=== PATIENT | female | born 1990 | race Caucasian/White ===

== ENCOUNTER 2019-03-07 12:15 | Emergency (ER) | payer MEDICAID, SELFPAY ==
[2019-03-07 12:16] VITALS: BP 119/83; PULSE 61; RESP 17; TEMP 36.6; O2SAT 99; BMI 32.8
--- NOTE | 2019-03-07 12:45 | RAD_ITS ---
STUDY: X-RAY - ABDOMEN/PELVIS REASON FOR EXAM: Female, 28 years old. Low back pain. IUD placement. TECHNIQUE: Single AP view of the abdomen / pelvis. COMPARISON: None. FINDINGS: There is a moderate amount of colonic fecal material. The visualized liver, spleen and kidneys are grossly normal in size and morphology. 9 as directed is seen within the mid pelvis most likely within the uterus. Normal visualized osseous structures. RAD/Abdomen Single View IMPRESSION: Moderate amount of fecal material is seen in the colon. IUD is seen within the uterus. Electronically Signed: Tomasz Mishar, at 13:46 EDT , Service support ,
[2019-03-07] MEDS: Ketorolac 30 MG/ML Syringe 60 MG IM (13:06)
[2019-03-07 14:22] LABS: Bacteria 0 SEEN /hpf (None Seen); Mucous, Urine 0 SEEN /hpf (<or=2+); Red Blood Cells-Urine 0 SEEN /hpf (0-5); Squamous Epithelial Cells - UA 0 SEEN /hpf (5-10)
[2019-03-07 14:25] LABS: Color, Urine Yellow (Yellow); Glucose, Dipstick Normal (Normal); Ketone-Dipstick Negative (Negative); Leukocyte Esterase-Dipstick 25 /ul (Negative); Nitrite-Dipstick Negative (Negative); Occult Blood-Urine Negative /ul (Negative); Protein-Dipstick Negative (Negative); Specific Gravity, Urine 1.015 (1.002-1.030); Urine Bilirubin Dipstick Negative (Negative); Urine Clarity Clear (Clear); Urine Urobilinogen Normal (Normal)
[2019-03-07 14:28] LABS: Internal QC Validated? YES +Cl - CLEAR BKGD; Pregnancy, Urine Negative Negative
[2019-03-07 14:39] LABS: White Blood Cells 0-5 SEEN /hpf (0-5)
--- NOTE | 2019-03-07 15:09 | ED.VISSUMM ---
- ER Visit Summary Date of Service: 03/07/19 Chief Complaint: Back pain History of Present Illness: The patient is a 28 F who with no primary care physician. She reports that she has low back pain began today. It is a sharp pain is 9 out of 10 at worst and 7-10 currently. Is worsened by movement. Is relieved by remaining still. She has not taken any medication for this. There is no relation to her legs. No numbness or weakness in her legs. No problems with her bowels or bladder. No groin numbness. Patient denies any fever, chills, or recent trauma. There are no red flags. Patient reports that she has cramping lower abdominal pain that it is been present for 3 days. Is 3 out of 10 in severity. She has been nauseated. She denies any dysuria or frequency. She has an IUD in place and reports that she was unable to feel the strings today. She last felt the strings last month. Physical Examination: Vitals: Stable. Afebrile. General: A&O x 3. NAD. Cardiovascular exam: Regular rate and rhythm, no murmur, rub or gallop. Respiratory exam: Clear to auscultation bilaterally. No wheezes or stridor. Abdominal exam: Soft, nontender, nondistended, normal bowel sounds. No peritoneal signs. Back: Diffuse moderate tenderness to palpation over the lumbar spine and the paraspinous musculature in the lumbar region. No point tenderness. Negative straight leg bilaterally. 5/5 DF, PF, EHL bilaterally. Normal sensation to light touch throughout. Extremity: No clubbing, cyanosis, or edema. Test Results: UA is negative. test is negative. Clinical Impression(s) from Imaging Studies KUB X-Ray 03/07/19 12:45 IMPRESSION: Moderate amount of fecal material is seen in the colon. IUD is seen within the uterus. Electronically Signed: Tomasz Danica, at 13:46 EDT , Service support , Emergency Department Course and Treatment: She was treated with Toradol IM and is resting comfortably. Treatment Plan: Patient was instructed to follow-up with Dr. Guzman in 1 week if her back pain is not improving. She will be placed on naproxen for this. I did discuss through the fact that the IUD strings are probably entered her cervix and that she should follow-up with Dr. Larry within 1 to 2 weeks for further evaluation of this. Return to the emergency department for any worsening symptoms. Disposition: To home in improved and stable condition. Impression: 1. Back pain, acute. 2. Abdominal pain, uncertain cause. This note was generated with [employer] software. It may contain incorrect words, spelling, and punctuation that were not noted in review of the chart prior to signing ED Disposition - Plan for ED Patient: Disposition: Home or Assisted Living Instructions: BACK PAIN (Acute or Chronic) Prescriptions: Naproxen [Naprosyn] 500 mg PO BID #14 tab Prescription Printed Referrals: Kitty Pierce MD [STAFF PHYSICIAN] - 1 Week if not improving Bisi Larry MD [STAFF PHYSICIAN] - 1-2 Weeks
[2019-03-07 15:14] VITALS: PULSE 66; RESP 17; O2SAT 97
== END 2019-03-07 15:15 | disposition home or self-care (01) ==
LOC: ED 13:34
PROVIDERS: Emergency Provider Emergency Medicine
DX: M54.5 Low back pain (principal); R10.30 Lower abdominal pain, unspecified; R11.0 Nausea; J45.909 Unspecified asthma, uncomplicated; Z97.5 Presence of (intrauterine) contraceptive device
CPT/HCPCS: 74018; 81001; 81025; 96372; 99282; J7030

== ENCOUNTER → 2020-11-02 | Outpatient (CLI) | payer MEDICAID, SELFPAY ==
[2020-11-05 14:05] LABS: HPV Reflexed? NOT INDICATED
== END | disposition home or self-care (01) ==
LOC: LABSPEC 17:01
PROVIDERS: Visit Provider Obstetrics & Gynecology
DX: Z12.4 Encounter for screening for malignant neoplasm of cervix (principal)
CPT/HCPCS: 88175; G0145

== ENCOUNTER 2020-12-24 09:01 | Day surgery (SDC) | payer MEDICAID, SELFPAY ==
[2020-12-22 10:59] LABS: Hematocrit 41.8 % (37-47); Hemoglobin 14.1 g/dL (12.0-15.0); Mean Corp Hgb Conc 33.7 g/dL (32-36); Mean Corpuscular Hgb 30.6 pg (27.0-32.0); Mean Corpuscular Volume 90.7 fL (81-99); Mean Platelet Vol. 10.6 fl (6.2-12.0); Platelet Count 184 K/mm3 (150-450); RBC Distribution Width CV 12.9 % (11.6-14.6); RBC Distribution Width SD 41.9 fl (35.1-43.9); Red Blood Count 4.61 M/mm3 (4.2-5.4); White Blood Count 6.5 K/mm3 (4.4-11.0)
[2020-12-24] VITALS (10 sets, daily range): BP systolic 99–124; BP diastolic 51–84; PULSE 48–78; RESP 14–18; TEMP 36.4–37.3; O2SAT 95–100; BMI 34.0
--- NOTE | 2020-12-24 | FALS_PTH ---
PATIENT: ANNE THOMPSON LOC[place] [facility] [place][id number] AGE/SX: 30/F ROOM: RE12/24/[address]: Dr. Tavon Flores MD : 1990 BED: DIS: 12/24/2020 SPEC #: [id number] RECD: 12/24/20 14:00 STATUS: ANTHONY RELoco #: [id number] MIRACLE: 12/24/20 00:[address]: Tavon Flores DEPT: SURGICAL PATHOLOGY RECD BY: Dhaval Bah ENTERED: 12/24/20 14:00 SP TYPE: FALL TUBES OTHR DR: No Primary Care Phys Tissues: Fallopian tube Procedures: Surgery Specimen Level IV HEADER OPERATION: Laparoscopic salpingectomy PRE-OP DIAGNOSIS: Sterilization TISSUE SUBMITTED: Bilateral fallopian tubes MICROSCOPIC DIAGNOSIS Right and left fallopian tubes, bilateral salpingectomies: Benign paratubal cysts and foci of endometriosis. See Comment. AM:skye 12/25/2020 COMMENT The pathologic changes are noted in both fallopian tubes. Clinical correlation is suggested. Case has been reviewed in consultation with Dr. Ignacio who concurs with the above diagnosis. IDC:DARRIN MICROSCOPIC DESCRIPTION Slides are reviewed. GROSS DESCRIPTION Received in fixative is one container labeled with the patient's name and designated bilateral fallopian tubes. The specimen consists of bilateral fallopian tubes including fimbrial ends measuring 5 cm in length and 0.5 cm in diameter and 6.5 cm in length and 0.6 cm in diameter. The fallopian tubes are not identified as right or left. A paratubal cyst is noted on one of the fallopian tubes measuring 0.5 cm in greatest dimension. Sections reveal unremarkable cut surfaces. Truer Pinion And Wheel sections are submitted in two cassettes with each cassette containing one fallopian tube. Cassette 1 also contains the paratubal cyst. / DARRIN:skye 12/24/20 TC:3 CPT: 42976 x2
[2020-12-24 09:41] LABS: Internal QC Validated? YES +Cl - CLEAR BKGD; Pregnancy, Urine Negative Negative
[2020-12-24] MEDS: Lactated Ringers 1,000 ML 120 ML IV ×2 (10:00→14:43)
--- NOTE | 2020-12-24 10:36 | PCM.HP.BLA ---
History and Physical Date of Admission: 12/24/20 Surgical History and Physical Name: GAYLE THOMPSON Age: 30 Date of : 1990 Gayle Thompson, a 30 year old female 2 0 0 0 2, presents for Laparoscopic bilateral tubal ligation on December 24, 2020 at 7:30. -- Gayle desires permanent sterilization. Gayle is here for laparoscopic tubal ligation. Reviewed and signed surgery consents. No questions expressed at this time. MEDICATIONS HISTORY: Current medications prescribed by our practice are: 1. Sprintec (28) 0.25 mg-35 mcg tablet, 1 PO QD ALLERGIES: No Known Drug Allergies Infections - Bronchitis and Chicken pox Illnesses - asthma as child/ occ post exertional asthma Accidents - no injuries of consequence Hospitalizations - see surgery migraines. Last one 6 mo ago.; Review of Systems: GENERAL - Denies fever, or chills SKIN - Denies skin changes EYES - Denies visual changes EARS - Denies difficulty hearing NOSE - Denies nasal congestion or bleeding MOUTH - Denies sore throat or difficulty swallowing NECK - Denies pain or swelling RESPIRATORY - Denies shortness of breath or wheezing CARDIOVASCULAR - Denies palpitations or chest pain GASTROINTESTINAL - Denies nausea, vomiting, diarrhea, constipation GENITOURINARY - Denies dysuria, frequency of urination, incontinence of urine MUSCULOSKELETAL - Denies joint or muscle pain NEUROLOGICAL - Denies localized numbness or weakness PSYCHIATRIC - Denies depression or anxiety ENDOCRINE - Denies heat or cold intolerance, weight loss or gain HEMATO-IMMUNOLOGIC - Denies excessive bleeding with cuts SOCIAL HISTORY: Alcohol Use - denies drinking Smoking - used to smoke but quit and 2010 Diet - no special diet Lifestyle - moderate stress lifestyle and single Exercise - regular and active work Seat Belt Use - always Employer - [employer] 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 Hours Worked - 40 hours per week Children Name(s) - La Benavidez Control - condoms FAMILY HISTORY: MENSTRUAL HISTORY: LMP Known?- DefiniteAmount/Duration - weeks, Regularity - Irregular, LMP - 11/13/17, Age Onset Menarche - 16 PAST PREGNANCIES: Total Pregnancies - 2; Full Term Pregnancies - 2; Premature - 0; Abortions, Induced - 0; Abortions, Spontaneous - 0; Ectopics - 0; Multiple Births - 0; Living Children - 2 SURGICAL HISTORY: 1. 11/15/2017 right foot reconstruction (plantar fascia) ; - 2. Pins in toes, 01/29, 09/03 ; - PHYSICAL EXAM BP- 110/78 Sitting, Right arm, large cuff Weight- 226.31917 lbs Height- 67.00 inch BMI:35.60 CONSTITUTIONAL - NAD, well nourished, and well developed SKIN - No rash, lesions, or ulcers HEENT - Normocephalic, PERRLA, EOMI NECK - No nodes, no nuchal rigidity and thyroid normal size and texture LYMPH NODES - Palpation of lymph nodes in neck and groins within normal limits LUNGS - CTA x2 without wheezes, crackles or rales CARDIAC - Regular rate and rhythm without rubs, murmurs, or gallops ABDOMEN - Without hepatosplenomegaly, distention, masses, rebound, or guarding; normal bowel sounds; no hernias EXTREMITIES - No edema or calf tenderness NEUROLOGICAL - Cranial nerves II-XII grossly intact PSYCHIATRIC - A and O to time, place, person, mood and affect External Genital Vagina - non-tender without lesions Urethra/Urethral Meatus - non-tender Bladder - non-tender Vagina - vaginal johnston are pink and moist without loss of rugae and no evidence of atrophy Cervix - without cervical motion tenderness and has normal size and features without evident lesions Uterus - 5-6 cm in size, mobile and nontender Adnexa - clear without masses or tenderness ASSESSMENT/PLAN: 2. Encounter For Preprocedural Examinations G2, IUD fell out, pt desires permanent sterilization R/b/a including regret discussed. Pt stated understanding, all questions answered and consent was signed. Pt now on OCP, to continue Educated on r/b/a of surgery, states understanding all questions answerd and consent was signed. Pt taking only OCP. Does not need COVID testing with vaccine.
--- NOTE | 2020-12-24 11:17 | DCINST_ITS ---
Discharge Instructions Diet Discharge Diet: No restrictions Activity Discharge Activity: Return to Normal Activity, No Restrictions, May Drive, May Shower and - (no tub baths for 2 weeks) May resume sexual activity in: 4-6 weeks Weight Bearing Status: Weight bearing as tolerated Dressing / Incision Call your doctor if your incision/area has: Continuous Slow Oozing and Foul Smel ling Discharge Call your doctor if you observe: Fever of 101 or Higher, Shortness of breath and Chest pain Follow Up Care Please Follow Up With: Tavon Flores MD When: 2 weeks postoperative Test Results: Test results from this visit will be discussed in further detail at your follow-up appointment, if applicable. Discharge Plan Admission Attending Provider: Tavon Flores Primary Care Provider: Care Physician,Brianda Primary Discharge Orders/Prescriptions Prescriptions: No Action albuterol 90 mcg/actuation Aerosol INHALATION PRN (Reason: Wheezing) RF: 0 Disposition Discharge Orders: Discharge Patient (Routine); Ordered 12/24/20 Ordered By: Dr. Tavon Flores
--- NOTE | 2020-12-24 11:18 | OP.PCM_ITS ---
Report of Operation Date of Procedure: 12/24/20 Pre-Operative Diagnosis: Desires permanent sterilization Post-Operative Diagnosis: Desires permanent sterilization Surgery/Procedure Performed:: Laparoscopic bilateral salpingectomy Description of Surgical Findings:: Surgeon: Tavon Flores MD Anesthesia: General EBL: 5 cc Urine output: 100 cc IV fluids: 700 cc Complications: None Specimen: Bilateral fallopian tubes Findings: Normal uterus, tubes, and ovaries. Consent: Patient desires permanent sterilization in need of laparoscopic bilateral salpingectomy. Patient understands the risk of the procedure include but are not limited to visceral or vascular injury, prolonged hospitalization, blood loss and need for transfusion, reoperation. Patient states understanding wish to proceed. All questions were answered consent was signed. Procedure: Patient was brought back to the OR where general anesthesia found to be adequate. Patient was prepared and draped in a dorsolithotomy position with yellowfin stirrups. Weighted speculum placed in the posterior aspect of the vagina and cervical dilators were used to dilate cervix. Uterine manipulator was placed. Varies needle was inserted at the umbilicus. Water safety test was passed. Abdomen was insufflated. 5 mm infraumbilical trocar was inserted. Laparoscope was inserted above findings were noted. Right lower quadrant 8 mm trocar was inserted under direct visualization. Left lower quadrant 5 mm trocar was placed under direct visualization. Using an atraumatic grasper and a LigaSure device the right fallopian tube was identified out to the fimbriae and the mesosalpinx was cut and cauterized. Fallopian tube was removed from the abdominal cavity and sent to pathology. The left fallopian tube was identified out to the fimbria and using a LigaSure the mesosalpinx was cut and cauterized. Fallopian tube removed from abdominal cavity and sent to pathology. Good hemostasis was noted. Abdomen was desufflated and trochars removed under direct visualization. Good hemostasis was noted. Uterine manipulator was removed. Skin was closed in a subcuticular fashion. All counts correct x2. Patient tolerated procedure well was brought to recovery in stable condition. boarder machine: Mary Silva
[2020-12-24] MEDS: Acetaminophen 500 MG Tablet 1000 MG PO (12:00)
== END 2020-12-24 16:37 ==
LOC: SDC 09:02 → AC 09:02
PROVIDERS: Anesthesiology; Referring Provider Obstetrics & Gynecology; Visit Provider Obstetrics & Gynecology
PROC: (CPT 58661; principal; 2020-12-24 10:45)
DX: Z30.2 Encounter for sterilization (principal); J45.909 Unspecified asthma, uncomplicated; Z87.891 Personal history of nicotine dependence
CPT/HCPCS: 00840; 58661; 36415; 81025; 85027; 86850; 86900; 86901; 88302; 88305; J7120; J2405

== ENCOUNTER 2021-01-09 09:43 | Emergency (ER) | payer MEDICAID, SELFPAY ==
[2020-12-24 09:32] VITALS: BMI 34.0
[2021-01-09 09:44] VITALS: BP 137/84; PULSE 75; RESP 18; TEMP 36.2; O2SAT 97; BMI 28.8
[2021-01-09 09:52] VITALS: O2SAT 100
--- NOTE | 2021-01-09 10:05 | RAD_ITS ---
STUDY: X-RAY CHEST REASON FOR EXAM: Female, 30 years old. dyspnea, history of asthma TECHNIQUE: PA and lateral views of the chest. COMPARISON: None. FINDINGS: The lungs are clear and expanded. There is no demonstrated pleural abnormality. Normal size heart. Normal mediastinum and alan. Normal visualized pulmonary arteries. Normal visualized aortic arch and descending thoracic aorta. Normal visualized thoracic spine. Normal visualized ribs, clavicles, and shoulders. There is no demonstrated abnormality of the visualized soft tissue structures of the upper abdomen. RAD/Chest PA and Lateral IMPRESSION: Normal x-ray examination of the chest. Electronically Signed: Nino Ocampo MD at 11:39 EDT Tel , Service support ,
--- NOTE | 2021-01-09 10:06 | ED.VIS.DYS ---
HPI History of Present Illness Chief Complaint: Asthma Detail of Chief Complaint: With history of asthma and shortness of breath with symptoms for 1 week Informant: patient Onset/Context/Timing Timing: Intermittent Associated Symptoms cough; Negative for fever, yellow sputum or green sputum Narrative Narrative: Patient has a history of asthma and seasonal allergies. She has been having intermittent episodes of dyspnea over the last week. Patient was seen 6 days ago at [facility] and had an aerosol given and was started on prednisone which she finished yesterday. Today while in class she began feeling acutely more short of breath after having some coughing spells. Patient has had a cough but no fever. She has been immunized with both vaccines against Covid. He is not had a fever. She describes a mild sore throat. Patient denies any chest pain. She denies recent travel or surgery. Patient states that she gets this way every year. Prior similar symptoms: Yes [facility] Medical History (Updated 01/09/21 @ 11:[address] Dorian Lang, DO) Anxiety Asthma Migraine headache Wears glasses Home Medications albuterol mcg INHALATION PRN 12/17/20 [History Last Taken Unknown] prednisone 20 mg PO BID #6 tab 01/09/21 [Rx Last Taken Unknown] Allergy/AdvReac Type Severity Reaction Status Date / Time No Known Allergies Allergy Verified 12/17/20 08:05 Surgical History H/O wisdom tooth extraction Hx of foot surgery Social History Smoking Status: Never smoker ROS ROS ED Constitutional Constitutional ED: Reports systems reviewed and no addt'l complaints, except as documented; Denies body ache(s), change in weight or chills Eyes Eyes: Denies acute decrease in peripheral vision, change in vision, double vision or loss of vision ENT ENT ED: Reports none and sore throat; Denies ear pain, lip swelling, loss taste/smell, neck pain, otalgia or rhinorrhea Cardiovascular Cardiovascular: Reports none; Denies abdominal pain, chest pain with activity, leg edema, lightheadedness, orthopnea, palpitations, rapid heart rate or syncope Respiratory/Chest Respiratory/Chest: Reports none, cough and dyspnea; Denies change in mental status, dry cough, dyspnea on exertion, hemoptysis, orthopnea, shortness of breath at rest, shortness of breath with exertion or sputum Gastrointestinal Gastrointestinal: Reports none; Denies abdominal pain, change in stool character, diarrhea, hematemesis, hematochezia, melena, rectal bleeding or vomiting Genitourinary Genitourinary ED: Reports none; Denies abdominal discomfort, anuria, dysuria, genital pain or polyuria Musculoskeletal Musculoskeletal: Reports none; Denies arthralgias, back pain, difficulty walking, extremity pain, muscle weakness or myalgias Integumentary Reports none; Denies abscess or rash Neurologic Neurologic: Reports none; Denies abnormal gait, confusion, focal weakness, frequent falls, headache(s), loss of vision, numbness, paresthesias, radicular pain, vertigo or weakness Psychiatric Psychiatric: Reports systems reviewed and no addt'l complaints, except as documented and none; Denies behavioral changes, confusion, difficulty concentrating, hallucinations, suicidal ideation, tactile hallucinations or visual hallucinations Endocrine Endocrinology: Denies none, cold intolerance, excessive sweating, fatigue or heat intolerance Hematologic/Lymphatic Hematologic/Lymphatic: Reports none; Denies anemia, easy bleeding or easy bruising Allergic/Immunologic Allergic/Immunologic ED: Denies as per HPI, none, lip swelling, mouth swelling, throat swelling, tongue swelling or hives EXAM Physical Exam Const Vital Signs: 01/09/21 09:44 01/09/21 09:52 01/09/21 10:22 Temperature 97.2 F L Temperature Source Temporal Pulse Rate 75 76 Respiratory Rate 18 18 Respiratory Effort Short of Breath Labored Respiratory Pattern Normal Blood Pressure 137/84 H Blood Pressure Mean 101 Pulse Ox 97 Oxygen Delivery Method Room Air Room Air Positive well nourished and well developed General Appearance ED: well developed and NAD HEENT Reports TM's clear and moist mucous membranes normocephalic and atraumatic; Negative for trauma or tenderness Tympanic Membrane ED: Yes TM's clear Eyes PERRL and EOMs intact bilaterally General Eye ED: Negative for pale conjunctiva or scleral icterus Neck no lymphadenopathy, supple and no JVD General: Negative for tenderness Chest Wall inspection of chest normal and palpation of chest normal Chest: Negative for tenderness Resp normal respiratory effort and No clear to auscultation bilaterally Resp Narrative: Patient has no conversational dyspnea. No significant tachypnea. She has minimal faint expiratory wheezes noted bilaterally. No stridor on exam noted. Effort and Inspection: Negative for respiratory distress or pain with movement Auscultation: wheezes; Negative for rhonchi or diminished lung sounds Cardio regular rate, regular rhythm, S1 normal heart sound, S2 normal heart sound and no murmurs Peripheral Pulses: pulses 2+ throughout GI normal to inspection, nondistended, normoactive bowel sounds, soft to palpation, non-tender, non-distended and no masses Back/Spine no CVA tenderness and no thoracic nor lumbar tenderness Extremity normal to inspection General Extremety ED: Negative for edema General Extremity: Negative for edema Neuro oriented x3, CN's II-XII intact bilaterally, no sensory deficits noted and gait normal Sensorium / Orientation: awake, alert, oriented to person, oriented to place and oriented to time Motor Exam: strength 5/5 throughout and strength abnormal Psych mental status grossly normal Skin no rashes or lesions noted and no wounds MDM MDM MDM Narrative Medical decision making narrative: Patient was given a DuoNeb aerosol and does feel improved symptomatically. Patient has normal peak flows. Patient on repeat exam is clear and not having any labored breathing. I will give patient 1 dose of prednisone and will treat for 3 more days. Radiography Chest X-Ray - ED: 1 View and 2 View Diagnostic Testin view chest x-ray obtained interpreted by myself as no acute disease process without evidence of infiltrate or pneumothorax or pneumomediastinum. Official report from radiology pending. Discharge Plan Triage Chief Complaint: Asthma ED Provider: Dorian Lang Dx/Rx/DC Orders Clinical Impression: Asthma exacerbation Instructions: ED Asthma, Acute (Adult) Prescriptions: New prednisone 20 mg tablet 20 mg PO BID Qty: 6 RF: 0 No Action albuterol 90 mcg/actuation Aerosol INHALATION PRN (Reason: Wheezing) RF: 0 Primary Care Provider: Care Physician,No Primary Referrals: Care Physician,No Primary [Primary Care Provider] - Activity Restrictions/Additional Instructions: Keep your scheduled appointment with primary care physician next week. Return if condition should worsen anyway. Disposition Disposition: Home, self care
[2021-01-09 10:22] VITALS: PULSE 76; RESP 18
[2021-01-09] MEDS: Ipratropium/Albuterol Sulfate 3 ML AMPUL.NEB INHALATION (10:22)
[2021-01-09] MEDS: predniSONE 20 MG Tablet 40 MG PO (11:15)
[2021-01-09 11:16] VITALS: PULSE 78; O2SAT 98
== END 2021-01-09 11:16 | disposition home or self-care (01) ==
PROVIDERS: Emergency Provider Emergency Medicine
DX: J45.901 Unspecified asthma with (acute) exacerbation (principal); Z79.52 Long term (current) use of systemic steroids
CPT/HCPCS: 71046; 99283

== ENCOUNTER 2021-11-12 10:14 | Outpatient (CLI) | payer MEDICAID, SELFPAY ==
[2021-11-12 11:09] LABS: Hematocrit 41.9 % (37-47); Hemoglobin 14.3 g/dL (12.0-15.0); Mean Corp Hgb Conc 34.1 g/dL (32-36); Mean Corpuscular Hgb 29.1 pg (27.0-32.0); Mean Corpuscular Volume 85.3 fL (81-99); Mean Platelet Vol. 10.8 fl (6.2-12.0); Platelet Count 211 K/mm3 (150-450); RBC Distribution Width CV 12.7 % (11.6-14.6); RBC Distribution Width SD 39.3 fl (35.1-43.9); Red Blood Count 4.91 M/mm3 (4.2-5.4)
[2021-11-12 11:31] LABS: Luteinizing Hormone 61.2 mIU/mL; Prolactin 19.8 ng/mL; T4 Free Direct 0.97 ng/dL (0.76-1.46); Thyroid Stim Hormone (TSH) 1.35 uIU/mL (0.358-3.74)
== END 2021-11-12 23:59 | disposition home or self-care (01) ==
LOC: WOBLAB 10:14
PROVIDERS: Visit Provider Obstetrics & Gynecology
DX: N93.9 Abnormal uterine and vaginal bleeding, unspecified (principal)
CPT/HCPCS: 36415; 82670; 83001; 83002; 84146; 84439; 84443; 85027

== ENCOUNTER 2022-02-17 12:30 | Outpatient (RCR) | payer MEDICAID, SELFPAY ==
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
--- NOTE | 2022-01-07 09:59 | HP.PTREVAL ---
Dr. Amarjit Storey, DO, It has been my pleasure to treat ANNE THOMPSON over the last 11 visits for S/P RIGHT ANKLE SURGERY. Please see the progress note below for an update on the physical therapy plan of care! 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 REPORTS SURGICAL FOLLOW UP 12/23/21. BACK TO WORK BUT NO RUNNING OR JUMPING UNTIL FOLLOW UP IN MARCH 2022. Objective/Function: PATIENT WAS SEEN TODAY FOR RE-ASSESSMENT OF PROGRESS TOWARD THE SET PT GOALS AND THE NEED FOR FURTHER PHYSICAL THERAPY VS READINESS FOR DISCHARGE. UPON EXAM TODAY: OBSERVED BLEEDING FROM SMALL AREA LOWER THIRD OF INCISION. PATIENT REPORTS SHE SCRATCHED IT OPEN. INSTRUCTED TO SEEK MEDICAL ATTENTION RIGHT AWAY IF SIGNS OF INFECTION. CIRCUMFERENCE MEASUREMENTS: MET HEADS - 25 CM, MALLEOLI 29 CM, PROXIMAL INCISION 29 CM. ROM: RIGHT HIP AND KNEE WFL. AROM OF RIGHT ANKLE: DORSI -2 DEG, PLANTARFLEXION 48 DEG, IV 28 DEG, EV 8 DEG. PATIENT IS ABLE TO ACTIVELY MOVE ALL TOES. STRENGTH: RIGHT HIP 5/5, RIGHT KNEE 5/5, RIGHT ANKLE 3-/5. ABLE TO SLS ON R LE WITHOUT UE ASSIST X 15 SEC NOW. Plan Plan: NO RUNNING OR JUMPING. CONTINUE PT TRANSITIONG TO LAND THERAPY 2-3 TIMES A WK X 3-4 WKS FOR GAIT TRAINING AND RIGHT LE ROM, STRETCHING AND STRENGTHEING TO HELP MEET SET GOALS. INCLUDE PROPRIOCEPTIVE TRAINING. EMPHASIZE AND GIVE DAILY HOME EX'S. Balance/Gait/Functional tests - Balance/Special Test Scores Lower Extremity Functional Score: 57 Goals Goal 1:: PATIENT WILL REPORT PAIN NO GREATER THAN 2/10 WITH 8 HOUR WORK DAY BY DISCHARGE. Goal Time Frame: 8-12 Weeks Goal Progress: Progressing Goal 2:: PATIENT WILL DEMONSTRATED A REDUCTION IN EDEMA NOTED BY REDUCTION IN CIRCUMFERENCE MEASUREMENTS BY 2 CM BY WEEK 6. Goal Time Frame: 4-6 Weeks Goal Progress: Progressing Goal 3:: PATIENT WILL COMPLETE R ANKLE ROM WITHIN 50% OF UNINVOLVED EXTREMITY BY DISCHARGE. Goal Time Frame: 8-12 Weeks Goal Progress: Progressing Goal 4:: PATIENT WILL COMPLETE SLS ON R LE X > 20 SEC TO SHOW IMPROVED GAIT STABILITY. Goal Time Frame: 4-6 Weeks Goal Progress: Progressing Goal 5:: PATIENT WILL BE INDEP WITH A HEP FOR CONTINUED IMPROVEMENT ONCE FORMAL PHYSICAL THERAY CONCLUDES. Goal Time Frame: 8-12 Weeks Goal Progress: Progressing Anticipated Interventions Patient/Client Instruction: Educate patient on: Condition, Plan of Care, Risk Factors For the Purpose of:: To improve self management Therapeutic Exercise to Include: Strength training, Balance training, Flexibilty training, Gait and locomotor training, Neuromotor development, In an aquatic setting, Active ROM For the Purpose of:: To decrease pain, To decrease swelling/inflammation, To increase ROM, To improve nutrient delivery to tissue, To improve muscle performance and motor function, To improve ability to perform ADL's, To increase tolerance to activity/condition/position, To improve ability of physical actions for home/community/work/leisure, To improve gait and locomotor functions Please do not hesitate to contact me at [phone] by phone or if you have questions or concerns regarding this new plan of care! Sincerely, Libertad Thacker, PT, Cert MDT
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
== END 2022-02-17 13:37 | disposition home or self-care (01) ==
LOC: PT 12:30
DX: Z98.890 Other specified postprocedural states (principal)
CPT/HCPCS: 97110; 97113; 97162; 97164

== ENCOUNTER 2023-03-10 21:15 | Emergency (ER) | payer MEDICAID, SELFPAY ==
[2023-03-10 21:16] VITALS: BP 141/88; PULSE 96; RESP 16; TEMP 36.4; O2SAT 98; BMI 35.9
[2023-03-10 21:17] VITALS: O2SAT 98
--- NOTE | 2023-03-10 21:25 | RAD_ITS ---
STUDY: X-RAY CHEST REASON FOR EXAM: Female, 32 years old. chest pain TECHNIQUE: AP portable COMPARISON: January 09, 2021. FINDINGS: The lungs are clear and expanded. There is no demonstrated pleural abnormality. Normal size heart. Normal mediastinum and alan. Normal visualized pulmonary arteries. Normal visualized aortic arch and descending thoracic aorta. Normal visualized thoracic spine. Normal visualized ribs, clavicles, and shoulders. There is no demonstrated abnormality of the visualized soft tissue structures of the upper abdomen. No significant change since prior study RAD/Chest 1 View (Portable) IMPRESSION: Normal x-ray examination of the chest. Electronically Signed: Kavon Chaney MD at 21:38 EDT ,
[2023-03-10 21:45] LABS: Absolute Lymphocyte Count 1.96 X10^3/uL (0.83-4.51); Absolute Neutrophil Count 5.1 X10^3/uL (2.0-7.7); Basophil# 0.05 X10^3/uL; Basophil% 0.6 % (0-1); Eosinophil# 0.14 X10^3/uL; Eosinophils% 1.8 % (0-5); Hematocrit 41.5 % (37-47); Lymphocyte # 1.96 X10^3/ul (0.83-4.51); Lymphocyte % 24.9 % (19-41); Mean Corp Hgb Conc 33.7 g/dL (32-36); Mean Corpuscular Hgb 30.1 pg (27.0-32.0); Mean Corpuscular Volume 89.2 fL (81-99); Mean Platelet Vol. 10.1 fl (6.2-12.0); Monocyte# 0.58 X10^3/uL; Monocyte% 7.4 % (0-10); NRBC Flagged by Analyzer 0 % (0-5); Neutrophil # 5.09 X10^3/uL (2.7-7.7); Neutrophil % 64.8 % (47-70); Platelet Count 207 K/mm3 (150-450); RBC Distribution Width CV 12.9 % (11.6-14.6); RBC Distribution Width SD 42.3 fl (35.1-43.9); Red Blood Count 4.65 M/mm3 (4.2-5.4); White Blood Count 7.9 K/mm3 (4.4-11.0)
[2023-03-10 22:03] LABS: Anion Gap 4 (5-15); BUN 19 mg/dL (7-18); BUN/Creat Ratio 22.5 RATIO (10-20); Calcium,Total 8.8 mg/dL (8.5-10.1); Chloride 109 mmol/L (98-107); Creatinine, Serum 0.84 mg/dL (0.55-1.02); EST Glomerular Filtration Rate 84 mL/min (>60); Est Glom Filt Rate - Afr Amer 102 mL/min (>60); Estimated Creatinine Clearance 98.79 ml/min; Glucose 111 mg/dL (74-106); Potassium 3.9 mmol/L (3.5-5.1); Sodium Level 141 mmol/L (136-145); Troponin-I HS (w/2H Reflex) < 3 pg/mL (3.0-54.0)
[2023-03-10 22:15] VITALS: PULSE 77; RESP 14; O2SAT 97
[2023-03-10 23:00] VITALS: TEMP 37
--- NOTE | 2023-03-10 23:08 | ED.VIS.CHEST ---
HPI History of Present Illness Chief Complaint: Chest Pain Detail of Chief Complaint: Palpitations and accelerated heart rate. Informant: patient and spouse/S.O. Onset/Context/Timing Onset: Today Activity at onset: sudden Timing: Intermittent Quality: Positive for Sharp Location: Left Chest Current Severity: Gone Maximum Severity: Mild Worsened By: Nothing Relieved By: Nothing Associated Symptoms: Negative for Nausea, Vomiting, Dyspnea, Cough, Fever, Lightheadedness or Acid Reflux Narrative Narrative: 32-year-old female history of anxiety and asthma. No prior DVT or PE. Recently tested [place] to and from [place] by driving. Tonight she had an episode where she said she started sweating and had a heart rate of 53 that went up to 132. She had some chest discomfort with it which is since resolved. No hemoptysis. No pleuritic pain. No leg pain or swelling. She has no cardiac history. Prior Similar Symptoms: No Recent Illness/Hospitalization: No CVD Risk Factors: Negative for Hypertension, Diabetes, Hypercholesterolemia, Family History 1' </=55 or Smoking PE Risk Factors: Positive for Recent Travel/Surgery; Negative for Recent Immobilization, Prior DVT or PE, Cancer or OCP + Smoking + >/=35 TAD Risk Factors: Negative for Marfan's Syndrome PFSH PFSH Medical History Anxiety Asthma Migraine headache Wears glasses Home Medications albuterol 90 mcg/actuation aerosol inhaler mcg inhalation PRN Wheezing 12/17/20 [History Last Taken Unknown] prednisone 20 mg tablet 20 mg PO BID #6 tabs 01/09/21 [Rx Last Taken Unknown] Allergy/AdvReac Type Severity Reaction Status Date / Time No Known Allergies Allergy Verified 03/10/23 21:15 Surgical History H/O wisdom tooth extraction Hx of foot surgery Social History Smoking Status: Never smoker ROS ROS ED ROS Narrative Accelerated heart rate. Atypical chest pain. Review of Systems ROS Unobtainable: Denies due to encephalopathy Constitutional Constitutional ED: Denies chills or fever(s) Eyes Eyes: Reports none ENT ENT ED: Denies ear pain Cardiovascular Cardiovascular: Reports as per HPI, chest pain, palpitations and racing heartbeat Respiratory/Chest Respiratory/Chest: Denies dyspnea Gastrointestinal Gastrointestinal: Denies abdominal pain Genitourinary Genitourinary ED: Denies dysuria or hematuria Musculoskeletal Musculoskeletal: Denies arthralgias, back pain, myalgias or neck pain Integumentary Denies abscess Neurologic Neurologic: Denies headache(s) Psychiatric Psychiatric: Denies anxiety Endocrine Endocrinology: Denies cold intolerance Hematologic/Lymphatic Hematologic/Lymphatic: Denies easy bleeding Allergic/Immunologic Allergic/Immunologic ED: Denies mouth swelling or tongue swelling EXAM Physical Exam Narrative Exam Narrative: 32-year-old female no acute distress. Vital signs stable afebrile. Pulse ox 98% on room air no signs hypoxia. H EENT exam unremarkable. Neck nontender no lymphadenopathy. No thyromegaly. Lungs clear to auscultation bilaterally. Heart regular rhythm rate in the 70s no murmur. Chest wall nontender. Abdomen soft nontender normal bowel sounds no peritoneal signs. Moves all 4 extremities. Calves are nontender without edema or cords. Equal symmetrical radial pulses. Neurologically she is awake and alert. Const Vital Signs: 03/10/23 21:16 03/10/23 21:17 03/10/23 21:15 Temperature 97.6 F L Temperature Source Temporal Pulse Rate 96 Respiratory Rate 16 Respiratory Effort Normal Non-Labored Blood Pressure 141/88 H Blood Pressure Mean 105 Pulse Ox 98 98 Oxygen Delivery Method Room Air 03/10/23 22:15 03/10/23 23:00 Temperature 102.4 F H Temperature Source Oral Pulse Rate 77 Respiratory Rate 14 Respiratory Effort Blood Pressure Blood Pressure Mean Pulse Ox 97 Oxygen Delivery Method Room Air Positive well nourished; Negative for cachectic, contractures or unkempt General Appearance ED: Negative for unkempt, cachectic, contractures or pallor Nutritional Appearance: Negative for cachectic HEENT Reports moist mucous membranes normocephalic and atraumatic; Negative for trauma or tenderness Eyes PERRL and EOMs intact bilaterally General Eye ED: Negative for pale conjunctiva, scleral icterus or other Neck no lymphadenopathy, supple and no JVD General: Negative for tenderness Chest Wall inspection of chest normal and palpation of chest normal Chest: Negative for tenderness Resp normal respiratory effort and clear to auscultation bilaterally Effort and Inspection: Negative for respiratory distress Auscultation: Negative for rales, rhonchi or wheezes Cardio regular rate, regular rhythm, S1 normal heart sound, S2 normal heart sound and no murmurs Rate: Negative for bradycardia or tachycardic Rhythm: Negative for abnormal rhythm Peripheral Pulses: pulses 2+ throughout GI normal to inspection, nondistended, normoactive bowel sounds, soft to palpation, non-tender, non-distended and no masses Auscultation: Negative for hyperactive bowel sounds Palpation: Negative for splenomegaly or mass Back/Spine no CVA tenderness and no thoracic nor lumbar tenderness General Back: Negative for CVA tenderness Cervical Spine: Negative for cervical spine tenderness Extremity normal to inspection General Extremety ED: Negative for edema, pulses abnormal or tenderness General Extremity: Negative for edema or pulses abnormal Neuro oriented x3 and CN's II-XII intact bilaterally Sensorium / Orientation: awake, alert, oriented to person and oriented to place; Negative for oriented to time, confused, lethargic or stuporous Motor Exam: strength 5/5 throughout Psych mental status grossly normal Appearance: Negative for unkempt Attitude: No agitated Mood & Affect: Negative for depressed, anxious or tearful Skin no rashes or lesions noted and no wounds General Skin Exam: Negative for jaundice, pallor or other Rashes: No rashes noted Trauma: Negative for abrasion or laceration Heart Score History: Slightly/Non-Suspicious Age: </= 45 years Risk Factors: No Risk Factors Troponin: </= Normal Limit Score: 0 MDM MDM MDM Narrative Medical decision making narrative: 32-year-old with palpitations rate heart rate. I do not think is an ND. She may have had a brief dysrhythmia that resolved on its own. She has had recent travel and had atypical nonpleuritic chest pain awaiting a D-dimer to rule out a PE which clinically I do not think this is a PE. She undergo cardiac work-up. If her work-up is negative she will be discharged home she will need to be placed on outpatient air sampling and monitoring. She will follow-up with her primary care provider. Patient doing well on repeat exam at 12:25 AM. She will be turned over to the overnight physician. Due to the elevated D-dimer a CTA of the chest to be obtained. Overnight physician will check the results and make final disposition. If there is no PE, then I am comfortable with her being discharged home. Outpatient follow-up and cardiac monitoring. If there is a clot then she will need anticoagulation. History & Record Review Discussion w/independent historian: Patient and Significant other Lab Data Attestation: I reviewed the patient's lab results. Lab results narrative: CBC white count of 7. H&H 14 and 41. Platelets 207. Electrolytes unremarkable gap of 4. BUN and creatinine are 19 and 0.8. Glucose 111. Troponin less than 3. Chest x-ray normal. EKG unremarkable. Labs: Laboratory Results - last 24 hr 03/10/23 03/10/23 21:40 23:14 WBC 7.9 RBC 4.65 Hgb 14.0 Hct 41.5 MCV 89.2 MCH 30.1 MCHC 33.7 RDW Std Deviation 42.3 RDW Coeff of [place] 12.9 Plt Count 207 MPV 10.1 Immature Gran % (Auto) 0.500 Neut % (Auto) 64.8 Lymph % (Auto) 24.9 [place] % (Auto) 7.4 Eos % (Auto) 1.8 Baso % (Auto) 0.6 Absolute Neuts (auto) 5.1 Absolute Lymphs (auto) 1.96 Nucleated RBC % 0 D-Dimer Quant (PE/DVT) 0.68 H* Sodium 141 Potassium 3.9 Chloride 109 H Carbon Dioxide 28.0 Anion Gap 4 L BUN 19 H Creatinine 0.84 Estim Creat Clear Calc 98.79 Est GFR (MDRD) Af Amer 102 Est GFR (MDRD) Non-Af 84 BUN/Creatinine Ratio 22.5 H Glucose 111 H Calcium 8.8 Troponin I High Sens < 3 L Radiography Chest X-Ray - ED: 1 View, Read by ED Physician, Read by Radiologist, Mediastinum, Bony Structures, No Acute Disease and Chronic Changes Diagnostic Testing: Clinical Impression(s) from Imaging Studies Chest X-Ray 03/10/23 21:25 IMPRESSION: Normal x-ray examination of the chest. Electronically Signed: Kavon Chaney MD at 21:38 EDT , Chest x-ray, portable, single view interpreted both by myself the radiologist shows no acute abnormality. Normal cardiac silhouette mediastinum. Normal lungs. Rhythm Strip Rhythm Strip: Sinus Rhythm Rate: 100 Ectopy: None EKG Initial EKG: Attestation: I personally reviewed and interpreted this EKG as follows: Interpretation: Sinus Rhythm and No Acute Injury Pattern Comments: Normal sinus rhythm rate of 100 no acute signs of ND or ischemia. No [id number]. Discharge Plan Triage Chief Complaint: Chest Pain ED Provider: Clark Krishnamurthy Dx/Rx/DC Orders Clinical Impression: Palpitation, Chest pain Instructions: ED Palpitations Prescriptions: No Action albuterol 90 mcg/actuation Aerosol INHALATION PRN (Reason: Wheezing) prednisone 20 mg tablet 20 mg PO BID Qty: 6 0RF Primary Care Provider: Noelle Blanc NP Referrals: Care Physician,No Primary [Non-Staff] - Activity Restrictions/Additional Instructions: Follow-up with your primary care provider. With your pulse and elevated heart rate at home you will need to be placed on an outpatient air sampling and monitoring either an event monitor or Holter monitor to evaluate you for possible abnormal heart rhythm. There is no signs of this tonight but sometimes he is a very difficult to catch unless you are on the monitor we will not find it. Your labs, chest x-ray and EKG were unremarkable. Disposition Disposition: Home, Self Care
[2023-03-10 23:42] LABS: Reflex Troponin-HS? (from REC) Y
[2023-03-10 23:52] LABS: D-Dimer Quantitative (DVT/PE) 0.68 FEU/ug/m (0.27-0.49)
[2023-03-11] VITALS: PULSE 74; RESP 17; O2SAT 98
--- NOTE | 2023-03-11 00:20 | CT_ITS ---
STUDY: CTA CHEST REASON FOR EXAM: Female, 32 years old. abnomal d-dimer RADIATION DOSAGE (If Supplied By Facility): CTDIvol = ( 12.66 ) mGy, DLP = ( 507.50 ) mGycm TECHNIQUE: The examination was performed with the intravenous administration of IV 100mL Isovue-370. Post-processing of the angiographic images was performed, with multiplanar reformation and 3D reconstruction. Individualized dose optimization techniques were used for this CT. COMPARISON: March 10, 2023. FINDINGS: Unremarkable thyroid Normal enhancement of the bilateral peripheral pulmonary arteries. There is no demonstrated pulmonary embolism. No main pulmonary arterial enlargement. Aortic atherosclerosis without ectasia. Normal heart and pericardium. No densely calcified coronary atherosclerosis. No mediastinal or hilar adenopathy. Unremarkable esophagus. No endobronchial lesion. No airspace consolidation, effusion, or pneumothorax. Mild dependent atelectasis.. Normal osseous structures. Hepatic Steatosis CT/CTA Chest W/WO Contrast IMPRESSION: No pulmonary embolism or evidence of acute airspace disease. Minimal dependent atelectasis. Electronically Signed: Jameel Perez MD at 1:38 EDT ,
[2023-03-11 01:00] VITALS: PULSE 76; RESP 15; O2SAT 98
[2023-03-11 02:00] VITALS: PULSE 91; RESP 16; O2SAT 98
[2023-03-11 02:08] VITALS: PULSE 88; RESP 16; O2SAT 98
== END 2023-03-11 02:08 | disposition home or self-care (01) ==
LOC: ED 23:24
PROVIDERS: Emergency Provider Emergency Medicine; PCP Nurse Practitioner Family; Visit Provider Emergency Medicine
DX: R07.9 Chest pain, unspecified (principal); R00.2 Palpitations; R00.0 Tachycardia, unspecified; J45.909 Unspecified asthma, uncomplicated
CPT/HCPCS: 71045; 71275; 80048; 84484; 85025; 85379; 93005; 99284; J7030; Q9967; A4216

== ENCOUNTER 2025-05-04 18:23 | Emergency (ER) | payer MEDICAID, SELFPAY ==
[2025-05-04 18:24] VITALS: BP 139/98; PULSE 85; RESP 16; TEMP 36.9; O2SAT 99; BMI 35.9
--- NOTE | 2025-05-04 18:39 | CT_ITS ---
PROCEDURE: ABDOMEN/PELVIS W IV CONT ONLY 05/04/2025 REASON FOR EXAM: RLQ ABD PAIN TECHNIQUE: Procedure Code: [id number] Modality: CT Procedure: ABDOMEN/PELVIS W IV CONT ONLY Coronal and Sagittal reconstruction series were provided. CONTRAST: Isovue 370 VOLUME: 100 mL One or more dose reduction techniques were used (e.g., Automated exposure control, adjustment of the mA and/or kV according to patient size, use of iterative reconstruction technique. RADIATION DOSE SUMMARY: CTDlvol: 16.62, 23.30 mGy DLP: 1280 mGycm COMPARISON: None. FINDINGS: LUNG BASES: No basilar airspace consolidation or pleural effusion. LIVER: Enlarged measuring 19.4 cm in length. Diffuse decrease in parenchymal density. GALLBLADDER: Unremarkable. No calcified stone. BILE DUCTS: No ductal dilation. PANCREAS: Unremarkable. SPLEEN: Unremarkable. ADRENAL GLANDS: Unremarkable. KIDNEYS: Unremarkable. The kidneys enhance symmetrically. No hydronephrosis or hydroureter. STOMACH AND BOWEL: No obstruction or perforation. No wall thickening. No CT evidence of colitis or acute diverticulitis. APPENDIX: Normal-appearing appendix. No CT evidence for appendicitis. RETRO/PERITONEUM: No free fluid. No free air. LYMPH NODES: No lymphadenopathy. PELVIC ORGANS: Unremarkable as visualized. VASCULATURE: No aortic aneurysm. ABDOMINAL WALL AND SOFT TISSUES: Small fat-containing umbilical hernia. BONES: No fracture or suspicious osseous abnormality. CT/Abdomen/Pelvis W IV Cont ONLY IMPRESSION: 1. Hepatomegaly with diffuse hepatic steatosis. 2. No signs of appendicitis, bowel inflammation, perforation or obstruction. Reading Location: [id number]
--- NOTE | 2025-05-04 18:40 | ED.VIS.GI ---
HPI HPI - GI History of Present Illness Chief Complaint: Abd Pain Informant: patient Abdominal Pain/Flank Pain Onset: Today and Yesterday Context: Gradual Onset Timing: Continuous Quality: Aching Location: Diffuse and RLQ Current Severity: Moderate Maximum Severity: Moderate Worsened by: Car ride Relieved by: Nothing Nausea/Vomiting/Emesis GI Symptom: Positive for Nausea Severity: Mild Diarrhea/Melena/Hematochezia GI Symptom: Positive for Diarrhea Stool Quality: Positive for Loose Severity: Mild Associated Symptoms Associated Symptoms: Negative for Dysuria, Frequency, Hematuria or Urgency Narrative Narrative: 34-year-old female no send past medical history of prior ankle fusion. Prior tubal ligation and uterine ablation. States on Monday had some sharp pain in her right lower quadrant which resolved. Monday return associate with nausea and diarrhea. She had a prior ovarian cyst did not feel like this. Still has her appendix. Denies any fever or chills. No dysuria. No history of kidney stones. No back pain. No significant vaginal bleeding Prior similar symptoms: No Recent Illness/Hospitalization: No PFSH PFSH Medical History Wears glasses Anxiety Migraine headache Asthma Home Medications ?Medication ?Instructions ?Recorded ?Last Taken ?Type albuterol 90 mcg/actuation aerosol mcg inhalation PRN Wheezing 12/17/20 Unknown History inhaler prednisone 20 mg tablet 20 mg PO BID #6 tabs 01/09/21 Unknown Rx Allergy/AdvReac Type Severity Reaction Status Date / Time No Known Allergies Allergy Verified 05/04/25 18:26 Surgical History Hx of foot surgery H/O wisdom tooth extraction Social History Smoking Status: Never smoker ROS ROS ED ROS Narrative abdominal pain. Diarrhea. Nausea. Constitutional Constitutional ED: Denies chills or fever(s) ENT ENT ED: Denies ear pain Cardiovascular Cardiovascular: Denies chest pain Respiratory/Chest Respiratory/Chest: Denies cough or dyspnea Gastrointestinal Gastrointestinal: Reports abdominal pain, diarrhea and nausea; Denies constipation, melena or vomiting Genitourinary Genitourinary ED: Denies dysuria or hematuria Musculoskeletal Musculoskeletal: Denies arthralgias or back pain Integumentary Denies abscess Neurologic Neurologic: Denies headache(s) Psychiatric Psychiatric: Denies anxiety or depression Endocrine Endocrinology: Denies polydipsia, polyphagia or polyuria Hematologic/Lymphatic Hematologic/Lymphatic: Denies easy bleeding, easy bruising or lymphadenopathy Allergic/Immunologic Allergic/Immunologic ED: Denies mouth swelling, tongue swelling or urticaria EXAM Physical Exam Narrative Exam Narrative: 34-year-old female sitting upright in bed vital signs stable afebrile. Does not look septic toxic. present in room. H EENT exam pupils round react light. Moist weeks members. Neck nontender no JVD. No lymphadenopathy. Back nontender. Lungs clear to auscultation bilaterally. Heart regular rhythm rate about 80 no murmur. Chest wall ribs nontender. Abdomen is soft diffusely tender. In all quadrants. No hernia or mass. No rebound tenderness. No guarding or rigidity. No obstruction. No pulsatile mass. She is tender in the right lower quadrant but is also tender in other areas. No signs of trauma. Moving all 4 extremities. Nontender no edema. Normal range of motion. Normal strength. Neurologically she is awake alert. Answering questions and following commands. Const Vital Signs: 05/04/25 18:24 05/04/25 20:18 Temperature 98.4 F Temperature Source Oral Pulse Rate 85 77 Respiratory Rate 16 16 Blood Pressure 139/98 H 128/87 H Blood Pressure Mean 111 100 Pulse Ox 99 98 Oxygen Delivery Method Room Air Room Air Positive well nourished and well developed; Negative for cachectic, contractures or unkempt General Appearance ED: well developed and NAD; Negative for unkempt, cachectic, contractures or pallor Nutritional Appearance: Negative for cachectic HEENT Reports moist mucous membranes normocephalic and atraumatic Eyes PERRL and EOMs intact bilaterally Neck no lymphadenopathy, supple and no JVD Resp normal respiratory effort and clear to auscultation bilaterally Cardio regular rate, regular rhythm, S1 normal heart sound, S2 normal heart sound and no murmurs GI non-distended and no masses; Negative for non-tender GI Narrative: Diffusely tender including the right lower quadrant. No hernia or mass. No peritoneal signs. Inspection: Negative for abdominal distention Auscultation: normoactive bowel sounds Palpation: soft and tender; Negative for guarding, rigid, hepatomegaly, splenomegaly, hernia, mass, pulsatile mass or rebound tenderness present Back/Spine no CVA tenderness Extremity full ROM General Extremety ED: Negative for edema or tenderness General Extremity: Negative for edema Neuro CN's II-XII intact bilaterally and moves all extremities Sensorium / Orientation: alert, oriented to person, oriented to place and oriented to time Motor Exam: strength 5/5 throughout Psych mental status grossly normal and thought process normal Appearance: Negative for unkempt Skin no wounds General Skin Exam: Negative for jaundice or pallor Lesions: no lesions Rashes: no rashes Trauma: Negative for abrasion Nails: Negative for discolored MDM MDM MDM Narrative Medical decision making narrative: 34-year-old female abdominal pain potentially appendicitis versus other etiologies or viral syndrome. She did not want thing for pain or nausea. She was given IV fluids screening labs and a CT will be obtained. Repeat exam patient is resting comfortably currently at 7:55 PM. I told her initial blood test results were waiting on the CAT scan which was just done to be read and the urinalysis. Currently she does not anything for pain or nausea. Repeat exam patient doing well at 8:38 PM. Abdomen is benign. She will be discharged home treated as a viral syndrome. Fluids and rest. Motrin Tylenol. Follow-up as needed return if worse. History & Record Review Discussion w/independent historian: Patient and Family Additional record(s) reviewed:: Prior inpatient record, Prior outpatient record, Prior ED visit and Prior labs Lab Data Attestation: I reviewed the patient's lab results. Lab results narrative: CBC unremarkable. White count 6.6. H&H 13 and 39. Platelets 209. Electrolytes show gap 10. Normal BUN of 11 creatinine 0.9. Glucose 88. Liver enzymes unremarkable. ALT 38. Lipase 26. Serum test negative. Urinalysis shows no nitrates. CAT scan of the abdomen with IV contrast read by the radiologist reviewed by me shows no acute abnormality. No appendicitis. Labs: Laboratory Results - last 24 hr 05/04/25 05/04/25 19:05 19:30 WBC 6.6 RBC 4.55 Hgb 13.8 Hct 39.8 MCV 87.5 MCH 30.3 MCHC 34.7 RDW Std Deviation 40.3 RDW Coeff of Cameron 12.7 Plt Count 209 MPV 10.6 Immature Gran % (Auto) 0.200 Neut % (Auto) 64.9 Lymph % (Auto) 25.2 [place] % (Auto) 6.7 Eos % (Auto) 2.1 Baso % (Auto) 0.9 Absolute Neuts (auto) 4.3 Absolute Lymphs (auto) 1.65 Nucleated RBC % 0 Sodium 142 Potassium 3.7 Chloride 106 Carbon Dioxide 25.6 Anion Gap 10 BUN 11 Creatinine 0.96 Estim Creat Clear Calc 107.93 Est GFR (MDRD) Non-Af 80 BUN/Creatinine Ratio 11.2 Glucose 88 Calcium 9.0 Total Bilirubin 0.60 AST 31 ALT 38 H Alkaline Phosphatase 67 Total Protein 6.7 Albumin 4.0 Globulin 2.7 Albumin/Globulin Ratio 1.5 Lipase 26 Serum , Qual NEGATIVE Urine Color Yellow Urine Clarity Cloudy Urine pH 7.0 Ur Specific [place] 1.010 Urine Protein 15 H Urine Glucose (UA) Normal Urine Ketones Negative Urine Occult Blood Negative Urine Nitrite Negative Urine Bilirubin Negative Urine Urobilinogen 1 H Ur Leukocyte Esterase 25 H Radiography Diagnostic Testing: Clinical Impression(s) from Imaging Studies Abdomen/Pelvis CT 05/04/25 18:39 IMPRESSION: 1. Hepatomegaly with diffuse hepatic steatosis. 2. No signs of appendicitis, bowel inflammation, perforation or obstruction. Reading Location: [facility] Discharge Plan Triage Chief Complaint: Abd Pain ED Provider: Clark Krishnamurthy Dx/Rx/DC Orders Clinical Impression: Abdominal pain, Viral syndrome Instructions: Abdominal Pain Prescriptions: No Action albuterol 90 mcg/actuation Aerosol INHALATION PRN (Reason: Wheezing) prednisone 20 mg tablet 20 mg PO BID Qty: 6 0RF Primary Care Provider: Noelle Blanc NP Referrals: Noelle Blanc ADVERTISING SUPERVISOR, ADVERTISING SUPERVISOR-C [Primary Care Provider] - 3-5 Days if not improving Activity Restrictions/Additional Instructions: CAT scan the labs look good. No appendicitis. Plenty of fluids and rest. Motrin and Tylenol for pain. If the diarrhea continues start Imodium. If you are not improving follow-up your primary care provider. If you are a lot worse return to the emergency department. Print Language: French Disposition Disposition: Home, Self Care
--- OUTSIDE RECORDS SUMMARY | 2025-05-04 18:55 | XMS RPT_ITS | CCD ---
Author Organization [facility] Care Team Providers Care Customer Service Voice Name Role Phone Queden [employer]INICAL INFORMAT[employer] SPEC.Noelle GAR Primary Care Provider Unavailable Primary Care Provider Unavailabl e Queden CLINICAL INFORMATICS SPEC-Noelle GAR Primary Care [facility] Queden CLINICAL INFORMATICS SPEC.Noelle GAR A Primary Care Provider QUEDIOGO, NOELLE MARY Primary Care Unavailable QUEDIOGO, NOELLE A Referring Unavailable EDIS CADET Attending Unavailabl e QUEDEN, NOELLE A Primary Care Unavailable QUEDEN, NOELLE A Primary Care Unavailable LOREE, NOELLE A Referring Unavailable Edis Cadet DO Unavailable Queden CLINICAL INFORMATICS SPEC.Noelle GAR A Primary Care Provider Misael Oseguera Attending Unavailable Queden, Noelle Referring Unavailable Queden, Noelle Primary Care Unavailable Clark Krishnamurthy Attending Unavailable Queden, Noelle Primary Care Unavailable Ambreen Daniel RN Unavailable Unavailable QUEDEN, NOELLE A Primary Care Unavailable KRISTYN PAUL Attending Unavailable NANCY LOONEY Consulting Unavailable KAREN SERRANO Admitting Unavaila ble ORTEGA, MARIA D P Admitting Unavailable ORTEGA, MARIA D P Attending Unavailable QUEDEN, NOELLE MARY Primary Care Unavailable ORTEGA, MARIA D P Referring Unavailable QUEDEN, NOELLE MARY Primary Care Unavailable Michelle JOHNSON, Jeannette Unavailable MARIELA ANTHONY Attending Unavailable QUEDEN, NOELLE MARY Primary Care Unavailable LYLE SYKES Referring Unavailable QUEDEN, NOELLE Primary Care Unavailable QUEDEN, NOELLE Primary Care Unavailable QUEDEN, NOELLE Referring Unavailable QUEDEN, NOELLE Primary Care Unavailable QUEDEN, NOELLE Attending Unavailable QUEDEN, NOELLE Primary Care Unavailable QUEDEN, NOELLE Attending Unavailable QUEDEN, NOELLE Primary Care Unavailable AMARJIT STOREY P Admitting Unavailable AMARJIT STOREY P Attending Unavailable QUEDEN, NOELLE Primary Care Unavailable AMARJIT STOREY P Admitting Unavailable AMARJIT STOREY P Referring Unavailable AMARJIT STOREY P Attending Unavailable QUEDEN, NOELLE Primary Care Unavailable AMARJIT STOREY P Attending Unavailable QUEDEN, NOELLE Primary Care Unavailable AMARJIT STOREY P Attending Unavailable QUEDEN, NOELLE Primary Care Unavailable AMARJIT STOREY P Attending Unavailable LYLE SYKES Attending Unavailable QUEDEN, NOELLE Primary Care Unavailable QUEDEN, NOELLE Referring Unavailable QUEDEN, NOELLE Primary Care Unavailable GAYLE ARAGON Attending Unavailable QUEDEN, NOELLE Primary Care Unavailable QUEDEN, NOELLE Referring Unavailable QUEDEN, NOELLE Primary Care Unavailable AMARJIT STOREY P Referring Unavailable QUEDEN, NOELLE Primary Care Unavailable QUEDEN, NOELLE Referring Unavailable QUEDEN, NOELLE Primary Care Unavailable QUEDEN, NOELLE Attending Unavailable ELIOT GUTIERREZ Attending Unavailable QUEDEN, NOELLE Primary Care Unavailable QUEDEN, NOELLE Attending Unavailable QUEDEN, NOELLE Primary Care Unavailable QUEDEN, NOELLE Primary Care Unavailable AMARJIT STOREY P Referring Unavailable QUEDEN, NOELLE Primary Care Unavailable AMARJIT STOREY P Attending Unavailable QUEDEN, NOELLE Primary Care Unavailable AMARJIT TSOREY P Attending Unavailable QUEDEN, NOELLE Primary Care Unavailable AMARJIT STOREY P Attending Unavailable QUEDEN, NOELLE Primary Care Unavailable AMARJIT STOREY P Attending Unavailable QUEDEN, NOELLE Primary Care Unavailable AMARJIT STOREY P Attending Unavailable QUEDEN, NOELLE Primary Care Unavailable AMARJIT STOREY P Attending Unavailable Medications Current Medications Medication Drug Class(es) Dates Sig (Normalized) Sig (Original) [id number] actuat albuterol 0.09 mg/actuat metered dose inhaler (20 sources) beta2-Adrenergic Agonist Start: 02-27-2024 take 2 puff(s) by inhalation every six hours as needed albuterol HFA (PROVENTIL HFA, VENTOLIN HFA) 90 mcg/actuation inhaler Inhale 2 Puffs as instructed every 6 hours as needed. 1 Each 02/27/2024 Active Start: 12-17-2020 Albuterol Acti ve MCG INHALATION December 17, 2020 12:00am Start: 12-15-2017 take 2 puff(s) by in halation every four hours as needed albuterol HFA (PROVENTIL HFA, VENTOLIN HFA) 90 mcg/actuation inhaler Inhale 2 Puffs as instructed every 4 hours as needed. 1 Inhaler 0 12/15/2017 Active Comment on above: Inhale 2 Puffs as in structed every 4 hours as needed. ALPRAZolam 0.5 mg oral tablet (2 sources) Benzodiazepine Start: End: take 1 tablet by mouth twice daily as needed ALPRAZolam (XANAX) 0.5 mg tablet Indications: Bereavement reaction Take 1 tablet by mouth twice daily as needed for up to 7 days. 14 tablet 0 12/16/2021 12/23/2021 Active Start: 11-30-2021 End: 12-07-2021 take 1 tablet by mouth twice daily as needed ALPRAZolam (XANAX) 0.5 mg tablet Indications: Bereavement reaction Take 1 tablet by mouth twice daily as needed for up to 7 days. 14 tablet 0 11/30/2021 12/07/2021 Active Comment on above: Take 1 tablet by [facility] twice daily as needed for up to 7 days. amitriptyline hydrochloride 25 mg oral tablet (20 sources) Tricyclic Antidepressant Start: 04-11-20 take 1 tablet by mouth once daily at bedtime amitriptyline (ELAVIL) 25 mg tablet Indications: Migraine without aura and without status migrainosus, not intractable , Chronic tension-type headache, intractable Take 1 tablet by mouth daily at bedtime. 90 tablet 04/11/2025 Active Start: 08-07-2024 End: 04-11-2025 take 1 tablet by mouth once daily at bedtime amitriptyline (ELAVIL) 10 mg tablet Indications: Migraine without aura and without status migrainosus, not intractable Take 1 tablet by mouth daily at bedtime. 90 tablet 08/07/2024 04/11/2025 Discontinued (Changing Therapy/Dosage Form) amoxicillin 875 mg / clavulanate 125 mg oral tablet (1 source) Penicillin-class Antibacterial Start: 10-20-2023 take 1 tablet by mouth twice daily at mealtime amoxicillin-pot clavulanate (Augmentin) 875-125 mg tablet Take 1 tablet by mouth twice daily for 10 days. Take it with food and water. Drink plenty of fluid 0 10/20/2023 Active atenolol 25 mg oral tablet (20 sources) beta-Adrenergic Adán Start: 04-14-2023 take 0.5 tablet by mouth once daily as needed atenolol (TENORMIN) 25 mg tablet Indications: Palpitations Take 0.5 tablets by mouth once daily as needed. For HR > 100 30 tablet 04/14/2023 Active End: 07-03-2023 atenolol (Tenormin) 25 mg ta blet Take by mouth once daily. 0 07/03/2023 Discontinued (Med List Cleanup) Comment on above: Take 0.5 tablets by mouth once daily as needed. For HR > 100 benzonatate 100 mg oral capsule (4 sources) Non-narcotic Antitussive Start: End: take 1 capsule by mouth every eight hours as needed benzonatate (TESSALON PERLE) 100 mg capsule Take 1 capsule by mouth three times a day as needed for cough for up to 5 days. 15 capsule 0 02/27/2024 03/03/2024 Active busPIRone hydrochloride 5 mg oral tablet (10 sources) Start: End: take 1 tablet by mouth three times daily busPIRone (Buspar) 5 mg tablet Take 1 tablet (5 mg) by mouth 3 times a day. 07/12/2023 Active Comment on above: Take 1 tablet by [facility] three times a day as needed. calcium chloride 0.0014 meq/ml / potassium chloride 0.004 meq/ml / sodium chloride 0.103 meq/ml / sodium lactate 0.028 meq/ml injectable solution (2 sources) Start: lactated Ringer's infusion cholecalciferol 1.25 mg oral capsule (16 sources) Vitamin D Start: take 1 capsule by mouth every week cholecalciferol, Vitamin D3, (VITAMIN D3) 1,250 mcg (50,000 unit) cap capsule Indications: Vitamin D deficiency Take 1 capsule by mouth one time a week. 12 capsule 05/02/2024 Active cyclobenzaprine hydrochloride 5 mg oral tablet (6 sources) Muscle Relaxant Start: 025 take 1-2 tablets by mouth twice daily as needed for muscle spasms cyclobenzaprine (FLEXERIL) 5 mg tablet Indications: Bilateral flank pain Take 1-2 tablets by mouth two times a day as needed for muscle spasm. 10 tablet 03/18/2025 Active diphenhydrAMINE hydrochloride 12.5 mg chewable tablet (8 sources) Histamine-1 Receptor Antagonist take 1 tablet by mouth every six hours as needed diphenhydrAMINE (BENADryl) 12.5 mg chewable tablet Chew 1 tablet (12.5 mg) every 6 hours if needed for allergies. Active HYDROmorphone (1 source) Opioid Agonist Start: 024 HYDROmorphone (Dilaudid) injection 0.2 mg meloxicam 15 mg oral tablet (20 sources) Nonsteroidal Anti-inflammatory Drug Start: 025 take 1 tablet by mouth once daily meloxicam (MOBIC) 15 mg tablet Take 1 tablet by mouth once daily. 30 tablet 2 03/12/2025 Active Start: 07-16-2023 End: 03-01-2024 take 1 tablet by mouth once daily meloxicam (MOBIC) 15 mg tablet Indications: Arthritis of ankle Take 1 tablet by mouth once daily. Do not take while on bactrim 30 tablet 3 02/19/2024 03/01/2024 Discontinued Start: 05-04-2023 End: 07-12-2023 take 1 tablet by mouth once daily meloxicam (MOBIC) 15 mg tablet Indications: Arthritis of ankle Take 1 tablet by mouth once daily. 30 tablet 3 05/04/2023 07/12/2023 Discontinued Start: 01-12-2023 End: 05-02-2023 take 1 tablet by mouth once daily meloxicam (MOBIC) 15 mg tablet Indications: Arthritis of ankle Take 1 tablet by mouth once daily. 30 tablet 3 01/12/2023 05/02/2023 Discontinued Start: 12-18-2022 take 1 tablet by [facility] once daily meloxicam (MOBIC) 15 mg tablet Indications: Arthritis of ankle Take 1 tablet by mouth once daily. 30 tablet 3 12/18/2022 Active Start: 05-15-2022 End: 12-14-2022 take 1 tablet by mouth once daily meloxicam (MOBIC) 15 mg tablet Indications: Arthritis of ankle Take 1 tablet by mouth once daily. 30 tablet 3 09/19/2022 12/14/2022 Discontinued Start: 04-19-2022 End: 05-13-2022 take 1 tablet by mouth once daily meloxicam (MOBIC) 15 mg tablet Indications: Arthritis of ankle Take 1 tablet by mouth once daily. 30 tablet 3 04/19/2022 05/13/2022 Discontinued Comment on above: Take 1 tablet by [facility] once daily. mupirocin 0.02 mg/mg topical ointment (1 source) RNA Synthetase Inhibitor Antibacterial Start: End: mupirocin (BACTROBAN) 2 % ointment Apply to affected area three times a day for 7 days. 30 g 0 02/19/2024 02/26/2024 Active naproxen sodium 550 mg oral tablet (20 sources) Nonsteroidal Anti-inflammatory Drug Start: End: take 1 tablet by mouth twice daily at mealtime Naproxen Sodium 550 mg tablet Take 1 tablet by mouth two times a day with meals. 60 tablet 07/23/2024 08/22/2024 Active Start: 06-05-2024 End: 07-05-2024 take 1 tablet by mouth twice daily at mealtime Naproxen Sodium 550 mg tablet Take 1 tablet by mouth two times a day with meals. 60 tablet 06/05/2024 07/05/2024 Active Start: 04-12-2024 End: 05-12-2024 take 1 tablet by mouth twice daily at mealtime Naproxen Sodium 550 mg tablet Take 1 tablet by mouth two times a day with meals. 60 tablet 04/12/2024 05/12/2024 Active Start: 01-12-2024 End: 03-01-2024 take 1 tablet by mouth twice daily at mealtime Naproxen Sodium 550 mg tablet Take 1 tablet by mouth two times a day with meals. 60 tablet 0 01/12/2024 02/11/2024 Active 2 ml ondansetron 2 mg/ml injection (1 source) Serotonin-3 Receptor Antagonist Start: 08-31-2023 ondansetron (Zofran) injection 4 mg oxygen (O2) therapy (1 source) Start: 08-31-2023 oxygen (O2) therapy perflutren lipid microspheres 1.3 mL in NaCl (PF) 0.9% 10 mL injection (DEFINITY) (20 sources) Start: 04-14-2023 End: 07-13-2024 perflutren lipid microspheres 1.3 mL in NaCl (PF) 0.9% 10 mL injection (DEFINITY) rizatriptan 10 mg oral tablet (5 sources) Serotonin-1b and Serotonin-1d Receptor Agonist Start: 04-11-2025 take 1 tablet by mouth every two hours as needed for headache rizatriptan (MAXALT) 10 mg tablet Indications: Migraine without aura and without status migrainosus, not intractable Take 1 tablet by mouth as needed for migraine headache (see administration instructions). at onset of headache. May repeat after 2 hours. Do not exceed 30 mg per day. 12 tablet 04/11/2025 Active 125 ml sodium chloride 9 mg/ml prefilled syringe (20 sources) Start: 04-14-2023 End: 07-13-2024 sodium chloride 0.9 % (flush) 10 mL (BD POSIFLUSH) sulfamethoxazole 800 mg / trimethoprim 160 mg oral tablet (4 sources) Dihydrofolate Reductase Inhibitor Antibacterial, Sulfonamide Antimicrobial Start: 02-19-2024 End: 02-29-2024 take 1 tablet by mouth twice daily sulfamethoxazole-t rimethoprim (BACTRIM DS) 800-160 mg per tablet Take 1 tablet by mouth two times a day for 10 days. 20 tablet 0 02/19/2024 02/29/2024 Active topiramate 25 mg oral tablet (20 sources) Start: 01-30-2024 End: 03-07-2024 take 1 tablet by mouth once daily at bedtime topiramate (TOPAMAX) 25 mg tablet Indications: Class 2 obesity without serious comorbidity with body mass index (BMI) of 36.0 to 36.9 in adult, unspecified obesity type Take 1 tablet by mouth daily at bedtime for 7 days, THEN 2 tablets daily at bedtime. Patient should start on January 30, 2024. 67 tablet 01/30/2024 Active Completed/Discontinued Medications Medication Drug Class(es) Dates Sig (Normalized) Sig (Original) acetaminophen 325 mg oral tablet (20 sources) Start: 08-31-2023 End: 08-31-2023 acetaminophen (Tylenol) tablet 975 mg Start: 07-28-2021 End: 03-31-2023 take 2 tablets by mouth every eight hours as needed acetaminophen (TYLENOL) 500 mg tablet Take 2 tablets by mouth every 8 hours as needed for pain. 0 07/28/2021 03/31/2023 Discontinued Comment on above: Take 2 tablets [address] [facility] every 8 hours as needed for pain. acetaminophen 325 mg / oxyCODONE hydrochloride 5 mg oral tablet (13 sources) Opioid Agonist Start: 09-04-2024 End: 09-11-2024 take 1 tablet by mouth every eight hours as needed for pain oxyCODONE-acetami nophen (PERCOCET) 5-325 mg tablet Indications: Post-operative state Take 1 tablet by mouth every 8 hours as needed for pain for up to 7 days. for pain. 20 tablet 09/04/2024 09/11/2024 Start: 08-16-2024 End: 08-30-2024 take 1 tablet by mouth every four hours as needed for pain oxyCODONE-acetaminophen (PERCOCET) 5-325 mg tablet Indications: Post-operative state , Post-traumatic arthritis of right ankle Take 1 tablet by mouth every 4 hours as needed for pain for up to 7 days. for pain. 40 tablet 08/23/2024 08/30/2024 Start: 11-13-2023 End: 11-20-2023 take 1-2 tablets by mouth every four hours as needed for pain oxyCODONE-acetaminophen (PERCOCET) 5-325 mg tablet Indications: Post-traumatic arthritis of right ankle Take 1-2 tablets by mouth every 4 hours as needed for pain for up to 7 days. 28 tablet 0 11/13/2023 11/20/2023 Active Start: 10-23-2023 End: 10-30-2023 take 1-2 tablets by mouth every four hours as needed oxyCODONE-acetaminophen (Percocet) 5-325 mg tablet Take 1-2 tablets by mouth every 4 hours if needed. 0 10/23/2023 10/30/2023 Active Comment on above: Take 1-2 tablets by mouth every 4 hours as needed for pain for up to 7 days. aluminum chloride 200 mg/ml topical solution (20 sources) Start: 07-16-20 End: 03-31-20 aluminum chloride (DRYSOL) 20 % external solution Indications: Hyperhidrosis Apply to affected area daily at bedtime. 35 mL 0 07/16/2021 03/31/2023 Discontinued Comment on above: Apply to affected ar ea daily at bedtime. aspirin 81 mg delayed release oral tablet (4 sources) Platelet Aggregation Inhibitor, Nonsteroidal Anti-inflammatory Drug Start: 08-26-19 End: 11-26-19 take 1 tablet by mouth twice daily aspirin, enteric coated (ASPIRIN, ENTERIC COATED) 81 mg EC tablet Take 1 tablet by mouth twice daily for 21 days. 42 tablet 0 08/26/2021 11/25/2021 Discontinued (Course of therapy completed) Comment on above: Take 1 tablet by [facility] twice daily for 21 days. 5 ml bupivacaine hydrochloride 2.5 mg/ml injection (1 source) Amide Local Anesthetic Start: 07-03-20 End: 07-03-20 bupivacaine (PF) 0.25 % (2.5 mg/mL) 2 mL injection (SENSORCAINE MPF) Start: 07-03-2022 End: 07-03-2022 bupivacaine (PF) 0.25 % (2.5 mg/mL) 2 mL injection (SENSORCAINE MPF) 12 hr buPROPion hydrochloride 90 mg / naltrexone hydrochloride 8 mg extended release oral tablet (6 sources) Opioid Antagonist, Aminoketone Start: 11-13-2024 End: 03-18-2025 naltrexone-bupropion (CONTRAVE) 8-90 mg ER tablet Indications: Class 2 obesity without serious comorbidity with body mass index (BMI) of 36.0 to 36.9 in adult, unspecified obesity type , Unable to lose weight , Metabolic syndrome , At risk for sleep apnea Take 1 tablet daily for 7 days, then 1 tablet twice a day for 7 days, then 2 tablets in the morning and 1 tablet in the evening for 7 days, and then 2 tablets twice daily thereafter. 12/20/2024 03/18/2025 Discontinued (Course of therapy completed) Start: 11-07-2024 take 36-36.9 tablets by mouth once daily for sleep naltrexone-bupropion (CONTRAVE) 8-90 mg ER tablet Indications: Class 2 obesity without serious comorbidity with body mass index (BMI) of 36.0 to 36.9 in adult, unspecified obesity type , Unable to lose weight , Metabolic syndrome , At risk for sleep apnea Take 1 tablet by mouth once daily. 90 tablet 1 11/07/2024 Active celecoxib 200 mg oral capsule (1 source) Nonsteroidal Anti-inflammatory Drug Start: 08-31-2023 End: 08-31-2023 celecoxib (CeleBREX) capsule 200 mg doxycycline hyclate 100 mg oral tablet (4 sources) Tetracycline-class Drug Start: 08-23-2024 End: 09-02-2024 take 1 tablet by mouth twice daily doxycycline (VIBRA-TABS) 100 mg tablet Take 1 tablet by mouth two times a day for 10 days. 20 tablet 08/23/2024 09/02/2024 Start: 08-31-2023 End: 09-07-2023 doxycycline (Vibramycin) 100 mg capsule Indications: Menorrhagia with irregular cycle , Status post hysteroscopy Take 1 capsule (100 mg) by mouth 2 times a day for 7 days. Take with at least 8 ounces (large glass) of water, do not lie down for 30 minutes after 14 capsule 08/31/2023 09/07/2023 0.5 ml dulaglutide 3 mg/ml auto-injector (11 sources) GLP-1 Receptor Agonist Start: 06-24-2024 End: 07-27-2024 inject 1.5 mg by subcutaneous injection every week dulaglutide (TRULICITY) 1.5 mg/0.5 mL pen injector Indications: PTSD (post-traumatic stress disorder) , PSVT (paroxysmal supraventricular tachycardia) (HCC) , Dietary counseling and surveillance , BMI 35.0-35.9,adult , Sinus bradycardia , Metabolic syndrome Inject 1.5 mg subcutaneously one time a week. 2 mL 06/24/2024 07/27/2024 Discontinued Start: 06-04-2024 End: 07-04-2024 inject 0.75 mg by subcutaneous injection every week dulaglutide (TRULICITY) 0.75 mg/0.5 mL pen injector Indications: PTSD (post-traumatic stress disorder) , PSVT (paroxysmal supraventricular tachycardia) (HCC) , Dietary counseling and surveillance , BMI 35.0-35.9,adult , Sinus bradycardia , Metabolic syndrome Inject 0.75 mg subcutaneously one time a week. 2 mL 06/04/2024 06/24/2024 Discontinued dulaglutide (TRULICITY) 3 mg/0.5 mL pen injector (16 sources) Start: 07-27-2024 End: 11-07-2024 inject 3 mg by subcutaneous injection every week dulaglutide (TRULICITY) 3 mg/0.5 mL pen injector Inject 3 mg subcutaneously one time a week for 28 days. 2 mL 07/27/2024 11/07/2024 Discontinued (Discontinued by Patient) Start: 07-27-2024 inject 3 mg by subcu taneous injection every week dulaglutide (TRULICITY) 3 mg/0.5 mL pen injector Inject 3 mg subcutaneously one time a week for 28 days. 2 mL 07/27/2024 Active Start: 07-27-2024 End: 08-24-2024 inject 3 mg by subcutaneous injection every week dulaglutide (TRULICITY) 3 mg/0.5 mL pen injector Inject 3 mg subcutaneously one time a week for 28 days. 2 mL 07/27/2024 08/24/2024 Active escitalopram 20 mg oral tablet (5 sources) Serotonin Reuptake Inhibitor Start: 08-09-2021 End: 11-25-2021 take 1 tablet by mouth once daily escitalopram oxalate (LEXAPRO) 20 mg tablet Indications: Anxiety Take 1 tablet by mouth once daily. 30 tablet 1 08/09/2021 11/25/2021 Discontinued (Discontinued by Patient) Comment on above: Take 1 tablet by [facility] once daily. gabapentin 300 mg oral capsule (20 sources) Anti-epileptic Agent Start: 09-18-2024 End: 03-18-2025 take 1 capsule by mouth three times daily gabapentin (NEURONTIN) 300 mg capsule Indications: Post-operative state Take 1 capsule by mouth three times a day for 30 days. 30 capsule 09/18/2024 03/18/2025 Discontinued (Course of therapy completed) Start: 08-16-2024 End: 03-18-2025 take 1 capsule by mouth once daily at bedtime gabapentin (NEURONTIN) 300 mg capsule Take 1 capsule by mouth daily at bedtime for 30 days. 30 capsule 08/16/2024 03/18/2025 Discontinued (Course of therapy completed) Start: 08-31-2023 End: 08-31-2023 gabapentin (Neurontin) capsu le 300 mg ibuprofen 600 mg oral tablet (2 sources) Nonsteroidal Anti-inflammatory Drug Start: 08-31-2023 End: 09-10-2023 take 1 tablet by mouth every six hours for pain ibuprofen 600 mg tablet Indications: Menorrhagia with irregular cycle , Status post hysteroscopy Take 1 tablet (600 mg) by mouth every 6 hours if needed for moderate pain (4 - 6) for up to 20 doses. 30 tablet 08/31/2023 09/10/2023 1 ml ketorolac tromethamine 30 mg/ml injection (2 sources) Nonsteroidal Anti-inflammatory Drug, Cyclooxygenase Inhibitor Start: 04-11-2025 End: 04-11-2025 keTORolac 30 mg injection (Toradol) Start: 04-11-2025 End: 04-11-2025 inject 1 dose by intramuscular injection once 30 mg, INTRAMUSCULAR, ONCE, 1 dose, On Mon04/11/25 at 0830 Loratadine / Pseudoephedrine (20 sources) alpha-Adrenergic Agonist End: 03-31-2023 loratadine/pseudoephedrine (CLARITIN-D 24 HOUR ORAL) Take by mouth once daily. 0 03/31/2023 Discontinued loratadine/pseud oephedrine (CLARITIN-D 24 HOUR ORAL) Take by mouth once daily. 0 Active Comment on above: Take by mouth once d aily. 1 ml methylPREDNISolone acetate 40 mg/ml injection (1 source) Corticosteroid Start: 07-03-20 End: 07-03-20 methylPREDNISolone acetate 20 mg injection (DEPO-Medrol) Start: 07-03-2022 End: 07-03-2022 methylPREDNISolone acetate 2 0 mg injection (DEPO-Medrol) metroNIDAZOLE 500 mg oral tablet (2 sources) Nitroimidazole Antimicrobial Start: 08-31-2023 End: 09-07-2023 take 1 tablet by mouth twice daily metroNIDAZOLE (Flagyl) 500 mg tablet Indications: Menorrhagia with irregular cycle , Status post hysteroscopy Take 1 tablet (500 mg) by mouth 2 times a day for 7 days. 14 tablet 08/31/2023 09/07/2023 omeprazole 40 mg delayed release oral capsule (20 sources) Proton Pump Inhibitor Start: 07-23-2024 End: 03-18-2025 take 1 capsule by mouth once daily omeprazole (PRILOSEC) 40 mg capsule Indications: Gastroesophageal reflux disease, unspecified whether esophagitis present Take 1 capsule by mouth once daily. 90 capsule 1 07/23/2024 03/18/2025 Discontinued (Course of therapy completed) oxyCODONE hydrochloride 5 mg oral tablet (3 sources) Opioid Agonist Start: 08-31-2023 End: 09-07-2023 take 1 tablet by mouth every six hours for pain oxyCODONE (Roxicodone) 5 mg immediate release tablet Indications: Menorrhagia with irregular cycle , Status post hysteroscopy Take 1 tablet (5 mg) by mouth every 6 hours if needed for severe pain (7 - 10) for up to 12 doses. 12 tablet 08/31/2023 09/07/2023 predniSONE 10 mg oral tablet (20 sources) Start: 04-12-2024 End: 03-18-2025 predniSONE (DELTASONE) 10 mg tablet Dispense 25 tablets of Prednisone 10 mg for a 13 day course of therapy. Please take as directed: 1 tablet every 8 hours for the first 4 days, followed by 1 tablet every 12 hours for the next 4 days, followed by 1 tablet daily for the final 5 days. 25 tablet 07/23/2024 03/18/2025 Discontinued (Course of therapy completed) Start: 03-28-2024 End: 04-10-2024 predniSONE (DELTASONE) 10 mg tablet Dispense 25 tablets of Prednisone 10 mg for a 13 day course of therapy. Please take as directed: 1 tablet every 8 hours for the first 4 days, followed by 1 tablet every 12 hours for the next 4 days, followed by 1 tablet daily for the final 5 days. 25 tablet 03/28/2024 04/10/2024 Discontinued Start: 02-27-2024 End: 03-03-2024 take 1 tablet by mouth once daily predniSONE (DELTASONE) 50 mg Take 1 tablet by mouth once daily for 5 days. 5 tablet 0 02/27/2024 03/03/2024 Active Start: 04-19-2022 End: 08-30-2023 take 1 tablet by mouth every twenty-four hours as needed predniSONE (Deltasone) 10 mg tablet Take 1 tablet (10 mg) by mouth once daily as needed. 0 03/31/2023 08/30/2023 Discontinued (Therapy completed) Start: 01-09-2021 take 20 mg by mouth twice odell y Prednisone Active 20 MG PO TWICE A DAY January 09, 2021 12:00am Comment on above: Take 1 tablet by [facility] once daily. Take 1 tablet by mouth once daily as needed. spironolactone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 11/27/2024 9:01 AM Comparison: Radiograph 11/06/[address] ankle 04/02/2024 Contrast: ml of CT Radiation dose: Integrated Dose-length product (DLP) for this visit = 170.00 mGy*cm CT Dose Reduction Employed: Automated exposure control(AEC) and iterative recon RESULT: There is a large anterior fixation plate traversing the fused tibiotalar joint. There are also cannulated screws traversing the fused tibiotalar joint. Multiple additional screws and a plate are present along the posterior aspect of the distal tibia. There appears to be bone graft material along the anterior aspect of the joint. There is robust osseous fusion across the tibiotalar joint. No evidence of a fracture. There is mild degenerative change along the medial subtalar facet. Anterior and posterior subtalar facets are unremarkable. The soft tissues surrounding the ankle joint are unremarkable. IMPRESSION: 1. Robust osseous fusion across the tibiotalar joint as detailed. 2. No acute osseous abnormality. Plumbing Designer: [facility] Transcribe Date/Time: Nov 28 2024 11:48A Dictated by : REBECA SHEEHAN MD This examination was interpreted and the report reviewed and electronically signed by: REBECA SHEEHAN MD on Nov 28 2024 11:59AM EST [id number] Normal [facility] CT Ankle - right WO contrast on 11-27-2024 Radiology Study observation (narrative) [facility] CNCOon 11-13-2024 CNCO Letter Text Normal [facility] XR Ankle - right AP and Late ral and obliqueon 11-12-2024 Hardware intact without breakage or loosening. Triplane position is maintained. No acute destructive changes. No soft tissue gas. No complications seen. [facility] XR Ankle - right AP and Late ral and obliqueOrdered By: Mary Gutierrez on 11-12-2024 [facility] Work Phone: Radiology Study observation (narrative) [facility] Work Phone: CNOVon 11-07-2024 CNOV Office Visit (AGFAMPLE) GAYLE THOMPSON ([id number]) 1990 F Date Time Provider Department 11/07/24 11:20 AM NOELLE BLANC During your visit today, we recorded the following information about you: Temperature Pulse Respiration Blood pressure 97.8 degrees 64/minute 19/minute 118/64 Weight Height 108.4 kg 1.727 m Noelle Blanc, CLINICAL INFORMATICS SPEC.DIE DRAWING CHECKER 11/07/2024 5:52 PM Signed CHIEF COMPLAINT: Yanira is a 34-year-old female with a history of palpitations, PSVT, metabolic syndrome, and obesity, presenting for weight loss management. I reviewed past medical, surgical, social, and family histories today and updated chart. Allergies, chronic medications, and supplements were also reviewed. The patient consented to the use of [employer] software for draft documentation of the visit consistent with [facility]?s Notice of Privacy Practices. Obesity: - BMI: 36.34. - Seen by obesity medicine in May; prescribed Trulicity. - No weight loss on Trulicity; weight increased from 238 lbs in May to 239 lbs today. - Discontinued Trulicity in August due to difficulty with self-injections and ineffectiveness - Reports decreased appetite while on Trulicity. - Interested in exploring alternative weight loss medications. - Limited physical activity due to recent ankle fusion surgery in July. - Currently walking on a treadmill; participated in a 5K with children. - Eager to resume running post-CT scan of right ankle next month. - Engages in light weightlifting; has access to a gym at the station. - Diet includes high protein intake, 110+ oz of water daily, and minimal consumption of soda and coffee. - Occasionally consumes zero-sugar energy drinks and smoothies with protein. - Family history of weight issues and hormonal disorders, including PCOS in sister. - Mother recently diagnosed with Graves' disease; Yanira inquires about genetic testing. - Recent TSH levels within normal range; no history of endocrinology consultations. PAST MEDICAL HISTORY Diagnosis Date Acute right ankle pain Allergies Asthma as a kid Delayed emergence from general anesthesia Generalized anxiety disorder Hammer toe Migraines Palpitations Plantar fasciitis PONV (postoperative nausea and vomiting) PAST SURGICAL HISTORY Procedure Laterality Date ANKLE SURGERY HX Right 07/27/2021 APPLICATION UNIPLANE EXTERNAL FIXATION SYSTEM Right 07/18/2021 CLTX FX W8 BRG ARTCLR PRTN DSTL TIB W/SKEL TRACJ Right 07/18/2021 CORRECTION HAMMERTOE Right 2010, 2013 2017 EXTRACTION ERUPTED TOOTH 2016 wisdom teeth PAST SURGICAL HISTORY OF Right 10/23/2023 1. Removal internal fixation, right tibia PROCEDURE Bilateral 2010 pins in big toes PT ED OBSTETRICS AND GYNECOLOGY 08/2023 ENDOMETRIAL ABLATION SALPINGECTOMY COMPLETE/PARTIAL UNI/BI SPX 2020 Social History Tobacco Use Smoking status: Never Smokeless tobacco: Never Vaping Use Vaping status: Never Used Substance Use Topics Alcohol use: Yes Comment: occ.< once monthly Drug use: Never ALLERGIES No Known Allergies Family History Problem Relation Age of Onset other (Circulation problems) Mother other (High Blood Pressure) Mother other (fibromyalgia) Mother Hypertension Mother Cancer Mother cervical cancer Allergies Mother Bee venom, seasonal Depression Mother Anxiety disorder Mother Migraines Mother Thyroid Mother ADD/ADHD Father Migraines Sister Anxiety disorder Sister Depression Sister Asthma Sister Obesity Sister Thyroid Sister other (Gallbladder) Sister Asthma Brother Alzheimer's Disease Brother Diabetes Brother Cancer Maternal Grandmother Arthritis Maternal Grandmother COPD Maternal Grandmother other (ibs) Maternal Grandfather Obesity Paternal Grandmother other (colitis) Paternal Grandmother other (GERD) Daughter ADD/ADHD Son Allergies Son several other (gerd) Son Colon Cancer Other Current Outpatient Medications Medication Sig Dispense Refill gabapentin (NEURONTIN) 300 mg capsule Take 1 capsule by mouth three times a day for 30 days. 30 capsule 0 amitriptyline (ELAVIL) 10 mg tablet Take 1 tablet by mouth daily at bedtime. 90 tablet 0 SUMAtriptan (IMITREX) 25 mg tablet Take 1 tablet (25 mg) by mouth as needed for migraine headache (see administration instructions) (at onset of headache. May repeat after 2 hours.). May repeat dose after 2 hours if needed. Maximum daily dose is 200 mg per day. 12 tablet 1 omeprazole (PRILOSEC) 40 mg capsule Take 1 capsule by mouth once daily. 90 capsule 1 albuterol HFA (PROVENTIL HFA, VENTOLIN HFA) 90 mcg/actuation inhaler Inhale 2 Puffs as instructed every 6 hours as needed. 1 Each 0 atenolol (TENORMIN) 25 mg tablet Take 0.5 tablets by mouth once daily as needed. For HR > 100 30 tablet 0 gabapentin (NEURONTIN) 300 mg capsule Take 1 capsul (more content not included)... Normal [facility] THYROID PEROXIDASE ANTIBODYo n 11-07-2024 TPO Ab Qn 41.2 [IU]/mL High <5.6 [facility] Comment on above: Order Comment: Speci men Type: BLOOD SPECIMEN Ordering Facility: [facility] Address: [address], [place] [id number] Result Comment: Thyr oid Peroxidase Antibody test is used as an aid in diagnosis of autoimmune thyroid disease. Clinical correlation is required. Performed By: #### 3 024-7, 3053-6 #### [facility] CLIA [id number] [address] OF [facility] CNOVon 11-06-2024 CNOV Office Visit (AGPOB1 ) GAYLE THOMPSON ([id number]) 1990 F Date Time Provider Department 11/06/24 11:15 AM AMARJIT STOREY AGPOB1 During your visit today, we recorded the following information about you: Respiration Weight Height 17/minute 108.4 kg 1.727 m Amarjit Storey DPM 11/29/2024 12:43 PM Signed DOS: 08/16/2024 POD: 82 days Procedure: Ankle Arthrodesis, Right Distal Tibiofibular Joint Arthrodesis, Right This 34 year old female presents for a post op visit. Patient states they are doing well. Pain is well controlled. She states she has been pain-free and not utilizing any medications. Has been weightbearing as tolerated to the right lower extremity in [facility]. Denies any current nausea, vomiting, fever, chills, shortness of breath, chest pain or calf pain. Denies any other pedal complaints PAST MEDICAL HISTORY Diagnosis Date Acute right ankle pain Allergies Asthma as a kid Delayed emergence from general anesthesia Generalized anxiety disorder Hammer toe Migraines Palpitations Plantar fasciitis PONV (postoperative nausea and vomiting) Current Outpatient Medications Medication Sig gabapentin (NEURONTIN) 300 mg capsule Take 1 capsule by mouth three times a day for 30 days. gabapentin (NEURONTIN) 300 mg capsule Take 1 capsule by mouth daily at bedtime for 30 days. amitriptyline (ELAVIL) 10 mg tablet Take 1 tablet by mouth daily at bedtime. SUMAtriptan (IMITREX) 25 mg tablet Take 1 tablet (25 mg) by mouth as needed for migraine headache (see administration instructions) (at onset of headache. May repeat after 2 hours.). May repeat dose after 2 hours if needed. Maximum daily dose is 200 mg per day. dulaglutide (TRULICITY) 3 mg/0.5 mL pen injector Inject 3 mg subcutaneously one time a week for 28 days. (Patient not taking: Reported on 10/09/2024) predniSONE (DELTASONE) 10 mg tablet Dispense 25 tablets of Prednisone 10 mg for a 13 day course of therapy. Please take as directed: 1 tablet every 8 hours for the first 4 days, followed by 1 tablet every 12 hours for the next 4 days, followed by 1 tablet daily for the final 5 days. omeprazole (PRILOSEC) 40 mg capsule Take 1 capsule by mouth once daily. albuterol HFA (PROVENTIL HFA, VENTOLIN HFA) 90 mcg/actuation inhaler Inhale 2 Puffs as instructed every 6 hours as needed. atenolol (TENORMIN) 25 mg tablet Take 0.5 tablets by mouth once daily as needed. For HR > 100 No current facility-administered medications for this visit. ALLERGIES No Known Allergies Objective: Patient presents weightbearing as tolerated to right leg in [facility] bo. Problem focus examination to the right lower extremity: Incision site is well coapted without evidence of dehiscence. Mild erythema and edema surrounding surgical site. No drainage. No lymphadenopathy. No lymphangitis. No surrounding cellulitis. No signs of infection. Patient has no pain to palpation of calf. The calf is soft, supple and nontender without evidence of DVT. Negative Charli's test. Satisfactory alignment is noted. Pedal pulses are palpable. Capillary refill time is less than three seconds to all digits. Sensations are intact to light touch. Radiographs:3 views AP, MO, Lat right ankle were taken and evaluated 11/06/2024 Radiographic evaluation: Hardware intact without breakage or loosening. Triplane position is maintained. No acute destructive changes. No soft tissue gas. No complications seen. Assessment: Satisfactory post-operative progress Plan: The patient was educated on clinical examination findings, postoperative prognosis and protocol. All questions were answered to patient's apparent satisfaction. - Xray's reviewed with patient. - Patient to continue weightbearing as tolerated to the operative extremity in CAM boot for the next 2 weeks. -Patient can be weightbearing as tolerated in a lace up ankle brace and regular shoes starting in 2 weeks -Patient to follow-up in 4 to [address] scan of her ankle to evaluate union. Follow up in 5 weeks. Evan Johnson MD I personally saw and evaluated the patient. I reviewed the resident's note. I agree with the resident's assessment and plan unless otherwise noted. Amarjit Storey DPM, Evan Clifford MD 11/06/2024 11:29 AM Signed Follow-up after CT scan and 4 weeks. Can be weightbearing as tolerated in boot for an additional 2 weeks. Can come out of boot and transition to lace up ankle brace and regular shoes in 2 weeks. Allergies As of Date: 11/06/2024 (No Known Allergies) Date Reviewed: 11/06/2024 Reviewed by: Mary Dean MA - Fully Assessed Reason for Visit: Post Op [174] Primary Visit Diagnosis:Post-operati ve state [Z98.890] Order(s):CT ANKLE WO IVCON RIGHT [[id number]] Order #: [id number] FUTURE XR ANKLE GENERAL 3V AP/LAT/OBL RIGHT [[id number]] Order #: [id number] Pres (more content not included)... Normal [facility] CNOVon 10-09-2024 CNOV Office Visit (AGPOB1 ) THOMPSONGAYLE ([id number]) 1990 F Date Time Provider Department 10/09/24 11:15 AM AMARJIT STOREY AGPOB1 During your visit today, we recorded the following information about you: Respiration Weight Height 20/minute 108.4 kg 1.727 m Amarjit Storey DPM 10/09/2024 1:01 PM Signed DOS: 08/16/2024 POD: 54 days Procedure: Ankle Arthrodesis, Right Distal Tibiofibular Joint Arthrodesis, Right This 34 year old female presents for a post op visit. Patient states they are doing well. Pain is well controlled without medication. Admits to intermittent nerve pain. Rates pain 09/30. Admits to having intermittent aching, throbbing pain.Has been icing and elevating the extremity as instructed preoperatively and has been nonweightbearing to the right lower extremity in CAM boot. Denies any current nausea, vomiting, fever, chills, shortness of breath, chest pain or calf pain. Has been taking Aspirin for DVT prophylaxis. Denies any other pedal complaints PAST MEDICAL HISTORY Diagnosis Date Acute right ankle pain Allergies Asthma as a kid Delayed emergence from general anesthesia Generalized anxiety disorder Hammer toe Migraines Palpitations Plantar fasciitis PONV (postoperative nausea and vomiting) Current Outpatient Medications Medication Sig gabapentin (NEURONTIN) 300 mg capsule Take 1 capsule by mouth three times a day for 30 days. amitriptyline (ELAVIL) 10 mg tablet Take 1 tablet by mouth daily at bedtime. SUMAtriptan (IMITREX) 25 mg tablet Take 1 tablet (25 mg) by mouth as needed for migraine headache (see administration instructions) (at onset of headache. May repeat after 2 hours.). May repeat dose after 2 hours if needed. Maximum daily dose is 200 mg per day. predniSONE (DELTASONE) 10 mg tablet Dispense 25 tablets of Prednisone 10 mg for a 13 day course of therapy. Please take as directed: 1 tablet every 8 hours for the first 4 days, followed by 1 tablet every 12 hours for the next 4 days, followed by 1 tablet daily for the final 5 days. omeprazole (PRILOSEC) 40 mg capsule Take 1 capsule by mouth once daily. albuterol HFA (PROVENTIL HFA, VENTOLIN HFA) 90 mcg/actuation inhaler Inhale 2 Puffs as instructed every 6 hours as needed. atenolol (TENORMIN) 25 mg tablet Take 0.5 tablets by mouth once daily as needed. For HR > 100 gabapentin (NEURONTIN) 300 mg capsule Take 1 capsule by mouth daily at bedtime for 30 days. dulaglutide (TRULICITY) 3 mg/0.5 mL pen injector Inject 3 mg subcutaneously one time a week for 28 days. (Patient not taking: Reported on 10/09/2024) No current facility-administered medications for this visit. ALLERGIES No Known Allergies Objective: Patient presents nonweightbearing to right leg in [facility]. Dressing is dry, clean, and intact with normal strike through noted. Problem focus examination to the right lower extremity: Incision site is well coapted without evidence of dehiscence. Mild erythema and edema surrounding surgical site. No drainage. No lymphadenopathy. No lymphangitis. No surrounding cellulitis. No signs of infection. Patient has no pain to palpation of calf. The calf is soft, supple and nontender without evidence of DVT. Negative Charli's test. Satisfactory alignment is noted. Pedal pulses are palpable. Capillary refill time is less than three seconds to all digits. Sensations are intact to light touch. Radiographs:3 views AP, MO, Lat right ankle were taken and evaluated 10/09/2024 Radiographic evaluation: Hardware intact without breakage or loosening. Triplane position is maintained. No acute destructive changes. No soft tissue gas. No complications seen. Assessment: Satisfactory post-operative progress Plan: The patient was educated on clinical examination findings, postoperative prognosis and protocol. All questions were answered to patient's apparent satisfaction. - Xray's reviewed with patient. - Continue ASA 81 mg every 12 hours. - Dicussed the need for long time for nerve pain to resolve and will decrease with time. - Partial WB in the house in the [facility] boot - transition from partial weight bearing to full weight bearing in the house. Continue non-WB while out of the house for two weeks, after 2 weeks decrease amount of time using the scooter outside of the house and transition to partial weight bearing. - Hydrate incision site with Mositurizing cream Follow up 4 weeks Sophia Gutierrez DPM PGY-3 I personally saw and evaluated the patient. I reviewed the resident's note. I agree with the resident's assessment and plan unless otherwise noted. Amarjit Storey DPM, Mary Pearson DPM 10/09/2024 11:41 AM Addendum Partial WB in the house in the CAM boot - transition from partial weight bearing to full weight bearing in the house Continue non-WB while out of the house for two (more content not included)... Normal [facility] XR Ankle - right AP and Late ral and obliqueon 10-09-2024 Hardware intact without breakage or loosening. Triplane position is maintained. No acute destructive changes. No soft tissue gas. No complications seen. [facility] Radiology Study observation (narrative) [facility] CNOVon 09-18-2024 CNOV Office Visit (AGPOB1 ) GAYLE THOMPSON ([id number]) 1990 F Date Time Provider Department 09/18/24 11:00 AM [facility] During your visit today, we recorded the following information about you: Respiration Weight Height 18/minute 108.4 kg 1.727 m Amarjit Storey DPM 10/13/2024 11:23 AM Signed DOS: 08/16/2024 POD: 33 days Procedure: Ankle Arthrodesis, Right Distal Tibiofibular Joint Arthrodesis, Right This 34 year old female presents for a post op visit. Patient states they are doing well. Pain is well controlled by oxycodone. Has been nonweightbearing to the right lower extremity in CAM boot. Denies any current nausea, vomiting, fever, chills, shortness of breath, chest pain or calf pain. Has been taking Aspirin for DVT prophylaxis. Denies any other pedal complaints. PAST MEDICAL HISTORY Diagnosis Date Acute right ankle pain Allergies Asthma as a kid Delayed emergence from general anesthesia Generalized anxiety disorder Hammer toe Migraines Palpitations Plantar fasciitis PONV (postoperative nausea and vomiting) Current Outpatient Medications Medication Sig gabapentin (NEURONTIN) 300 mg capsule Take 1 capsule by mouth daily at bedtime for 30 days. amitriptyline (ELAVIL) 10 mg tablet Take 1 tablet by mouth daily at bedtime. (Patient not taking: Reported on 08/23/2024) SUMAtriptan (IMITREX) 25 mg tablet Take 1 tablet (25 mg) by mouth as needed for migraine headache (see administration instructions) (at onset of headache. May repeat after 2 hours.). May repeat dose after 2 hours if needed. Maximum daily dose is 200 mg per day. dulaglutide (TRULICITY) 3 mg/0.5 mL pen injector Inject 3 mg subcutaneously one time a week for 28 days. (Patient not taking: Reported on 08/17/2024) predniSONE (DELTASONE) 10 mg tablet Dispense 25 tablets of Prednisone 10 mg for a 13 day course of therapy. Please take as directed: 1 tablet every 8 hours for the first 4 days, followed by 1 tablet every 12 hours for the next 4 days, followed by 1 tablet daily for the final 5 days. omeprazole (PRILOSEC) 40 mg capsule Take 1 capsule by mouth once daily. albuterol HFA (PROVENTIL HFA, VENTOLIN HFA) 90 mcg/actuation inhaler Inhale 2 Puffs as instructed every 6 hours as needed. atenolol (TENORMIN) 25 mg tablet Take 0.5 tablets by mouth once daily as needed. For HR > 100 No current facility-administered medications for this visit. ALLERGIES No Known Allergies Objective: Patient presents nonweightbearing to right leg in CAM boot. Dressing is dry, clean, and intact with normal strike through noted. Problem focus examination to the right lower extremity: Incision site is well coapted without evidence of dehiscence. Mild erythema and edema surrounding surgical site. No drainage. No lymphadenopathy. No lymphangitis. No surrounding cellulitis. No signs of infection. Patient has no pain to palpation of calf. The calf is soft, supple and nontender without evidence of DVT. Negative Charli's test. Satisfactory alignment is noted. Pedal pulses are palpable. Capillary refill time is less than three seconds to all digits. Sensations are intact to light touch. Assessment: Satisfactory post-operative progress Plan: The patient was educated on clinical examination findings, postoperative prognosis and protocol. All questions were answered to patient's apparent satisfaction. - Bandage removed and new dressing applied. - Patient to continue nonweightbearing to the operative extremity in CAM boot. - Tubigrip and tamiko wrap dispensed. - New Rx Tramadol dispensed. - New Rx Gabapentin dispensed. - Continue ASA every 12 hours. - New work letter dispensed. Follow up 3 weeks with xray's possible transition to partial weightbearing Scribe Attestation: By signing my name below, I, Mary Dean MA, attest that this documentation has been prepared under the direction and in the presence of Amarjit Storey DPM. Electronically Signed: Mary Dean MA Scribgeraldo. September 18, 2024 11:23 AM. Clinician Attestation Statement: The information in this document, created by the paramedical aide for me, accurately reflects the services I personally performed and the decisions made by me. I have reviewed and approved this document for accuracy. Amarjit Storey DPM, FACFAS Allergies As of Date: 09/18/2024 (No Known Allergies) Date Reviewed: 09/18/2024 Reviewed by: Charlene Herrera MA - Fully Assessed Reason for Visit: Established Patient [175] Follow Up [171] Post Op [174] Primary Visit Diagnosis:Post-operati ve state [Z98.890] Order(s):[] traMADol (ULTRAM) 50 mg tabletTake 1 tablet by mouth every 4 hours as needed for pain for up to 7 days. for pain.Disp: 30 tabletRfl: 0 gabapentin (NEURONTIN) 300 mg capsuleTake 1 capsule by mouth three times a day for 30 days.Disp: 30 capsule (more content not included)... [facility] CNCOon 09-13-2024 CNCO Letter Text [facility] OPERATIVE NOon 09-13-2024 OPERATIVE NO HNO ID: [id number] Author: AMARJIT STOREY DPM Service: Podiatry Author Type: Physician Type: Operative Report Filed: 09/13/2024 11:38 Note Text: [facility] - Operative Report GAYLE THOMPSON : 1990 AGE: 34. SEX: F PATIENT TYPE: A [facility] [place] LOCATION: [facility] ATTENDING PHYSICIAN: Amarjit Storey DPM CSN NUMBER: [id number] DATE OF SURGERY/PROCEDURE: 08/16/2024 INCISION/PROCEDURE START TIME: 8:21 AM INCISION CLOSE/PROCEDURE END TIME: 10:57 AM PREOPERATIVE DIAGNOSIS: 1. Posttraumatic ankle arthritis, right. 2. 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 POSTOPERATIVE DIAGNOSIS: 1. Posttraumatic ankle arthritis, right. 2. 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 SURGEON: Amarjit Storey DPM DEBURRING MACHINE OPERATOR: senior office support assistant sosa, Rafi Dave MD. SURGERY/PROCEDURE: 1. Ankle arthrodesis, right. 2. Distal tibia-fibula joint arthrodesis, right. ANESTHESIA: General with popliteal nerve block. ESTIMATED BLOOD LOSS: Less than 50 mL. FLUIDS: 1200 mL lactated Ringer's. SPECIMENS: None. COMPLICATIONS: None. SPECIAL MEDICATIONS: Ancef 2 g IV. CONDITION TO PACU: Stable and extubated. INDICATIONS: This 34-year-old female presents today for surgical management of chronic right ankle and lower extremity pain secondary to posttraumatic ankle and distal tibiofibular joint arthritis. Patient sustained a closed tibial pilon fracture several months ago. She underwent open reduction and internal fixation of her tibial pilon fracture and has subsequently developed painful posttraumatic arthritis of the right ankle and distal tibiofibular joint. This condition is chronic, progressive, worsening, recalcitrant to nonoperative care. The patient's symptoms a failed to improve with multiple nonoperative modalities. Her symptoms are significantly negatively affecting her activities of daily living and extracurricular activities. In preoperative consultation, I had a lengthy discussion with the patient regarding treatment options and prognosis. All questions were answered to apparent satisfaction. She opted to proceed with surgical intervention and I explained to her details of procedure as well as medically reasonable risks, benefits, alternatives, prognosis, and potential complications. No guarantees were stated or implied as the outcome of surgery. DESCRIPTION OF PROCEDURE: In the preoperative area, patient was identified and greeted. The right leg was marked as the operative extremity and the operative consent was reviewed, signed, and dated. A preoperative huddle was performed. A popliteal nerve block was then performed to the right lower extremity by the Anesthesia Department. The patient was brought to the operating room and placed on the operative room table in supine position. General anesthesia was administered via LMA by the Anesthesia Department. A well-padded right thigh tourniquet was applied and 2 g of Ancef was infused intravenously. All extremities were padded and protected. The right foot, ankle, and lower leg were prepped and draped in usual sterile fashion and a preprocedure time-out was performed by all operative room personnel verifying the patient, operative extremity, and surgical procedures. Hemostasis was achieved via elevation, exsanguination, and inflation of the right thigh tourniquet to 300 mmHg. Attention was directed to the anterior aspect of the right ankle where a linear incision was centered over the anterior right ankle extending over the dorsal aspect of the right hindfoot. Sharp dissection was deepened through subcutaneous tissue with care to clamp and ligate all bleeders as necessary and retract all peripheral nerves identified. A linear incision was made through the deep fascia and superior extensor retinaculum over the extensor hallucis longus muscle and tendon. The tibialis anterior tendon and musculature were retracted medially and the remaining extensor tendons were retracted laterally. The anterior neurovascular bundle was identified and meticulously dissected and retracted laterally. An anterior ankle arthrotomy was performed for exposure of the right ankle and distal tibiofibular joint. Dissection was deepened laterally over the distal tibiofibular joint and release of the anterior ligamentous structures over the distal tibiofibular joint was performed. There were advanced degenerative changes to the ankle and distal tibiofibular joint. At this point, the ankle and distal tibiofibular joint were prepared for arthrodesis by removing the remaining articular cartilage and preparing the subchondral bone for arthrodesis via fenestration and fish scaling techniques. High-speed bur was also utilized for additional preparation of the ankle and distal tibiofibular joint. The medial and lateral gutters were also preppe (more content not included)... [facility] CNOVon 09-04-2024 CNOV Office Visit (AGPOB1 ) GAYLE THOMPSON ([id number]) 1990 F Date Time Provider Department 09/04/24 8:15 AM AMARJIT STOREY AGPOB1 During your visit today, we recorded the following information about you: Respiration Weight Height 20/minute 108.4 kg 1.727 m Amarjit Storey DPM 09/20/2024 7:27 AM Signed DOS: 08/16/2024 POD: 19 days Procedure: Ankle Arthrodesis, Right Distal Tibiofibular Joint Arthrodesis, Right This 34 year old female presents for a post op visit. Patient states they are doing well. Pain is well controlled by Percocet. Rates pain 4/10. Admits to having intermittent aching, throbbing pain.Has been icing and elevating the extremity as instructed preoperatively and has been nonweightbearing to the right lower extremity in CAM boot. Denies any current nausea, vomiting, fever, chills, shortness of breath, chest pain or calf pain. Has been taking Aspirin for DVT prophylaxis. Denies any other pedal complaints PAST MEDICAL HISTORY Diagnosis Date Acute right ankle pain Allergies Asthma as a kid Delayed emergence from general anesthesia Generalized anxiety disorder Hammer toe Migraines Palpitations Plantar fasciitis PONV (postoperative nausea and vomiting) Current Outpatient Medications Medication Sig gabapentin (NEURONTIN) 300 mg capsule Take 1 capsule by mouth daily at bedtime for 30 days. amitriptyline (ELAVIL) 10 mg tablet Take 1 tablet by mouth daily at bedtime. (Patient not taking: Reported on 08/23/2024) SUMAtriptan (IMITREX) 25 mg tablet Take 1 tablet (25 mg) by mouth as needed for migraine headache (see administration instructions) (at onset of headache. May repeat after 2 hours.). May repeat dose after 2 hours if needed. Maximum daily dose is 200 mg per day. dulaglutide (TRULICITY) 3 mg/0.5 mL pen injector Inject 3 mg subcutaneously one time a week for 28 days. (Patient not taking: Reported on 08/17/2024) predniSONE (DELTASONE) 10 mg tablet Dispense 25 tablets of Prednisone 10 mg for a 13 day course of therapy. Please take as directed: 1 tablet every 8 hours for the first 4 days, followed by 1 tablet every 12 hours for the next 4 days, followed by 1 tablet daily for the final 5 days. omeprazole (PRILOSEC) 40 mg capsule Take 1 capsule by mouth once daily. albuterol HFA (PROVENTIL HFA, VENTOLIN HFA) 90 mcg/actuation inhaler Inhale 2 Puffs as instructed every 6 hours as needed. atenolol (TENORMIN) 25 mg tablet Take 0.5 tablets by mouth once daily as needed. For HR > 100 No current facility-administered medications for this visit. ALLERGIES No Known Allergies Objective: Patient presents nonweightbearing to right leg in CAM boot. Dressing is dry, clean, and intact with normal strike through noted. Problem focus examination to the right lower extremity: Incision site is well coapted without evidence of dehiscence. Mild erythema and edema surrounding surgical site. No drainage. No lymphadenopathy. No lymphangitis. No surrounding cellulitis. No signs of infection. Patient has no pain to palpation of calf. The calf is soft, supple and nontender without evidence of DVT. Negative Charli's test. Satisfactory alignment is noted. Pedal pulses are palpable. Capillary refill time is less than three seconds to all digits. Sensations are intact to light touch. Radiographs:3 views AP, MO, Lat right ankle were taken and evaluated. Radiographic evaluation: Hardware intact without breakage or loosening. Triplane position is maintained. No acute destructive changes. No soft tissue gas. No complications seen. Assessment: Satisfactory post-operative progress Plan: The patient was educated on clinical examination findings, postoperative prognosis and protocol. All questions were answered to patient's apparent satisfaction. - Bandage removed and new dressing applied. - Xray's reviewed with patient. - Mesalt and band-aid applied. - Sutures were removed at today's visit and steri-strips applied overlying. - Tubigrip and tamiko wrap placed. - Patient to continue nonweightbearing to the operative extremity in [facility] boot. - She can begin showering, no ointment, soaking or peroxide. - Continue ASA 81 mg every 12 hours. - New Rx for oxycodone. Follow up 2 weeks Scribe Attestation: By signing my name below, IMary MA, attest that this documentation has been prepared under the direction and in the presence of Amarjit Storey DPM. Electronically Signed: Mary Dean MA Scribe. September 04, 2024 8:11 AM. . Clinician Attestation Statement: The information in this document, created by the paramedical aide for me, accurately reflects the services I personally performed and the decisions made by me. I have reviewed and approved this document for accuracy. Amarjit Storey DPM, FACFAS Allergies As of Date: 09/04/2024 (No Known Allergies) (more content not included)... [facility] XR Ankle - right AP and Late ral and obliqueon 09-04-2024 Hardware intact without breakage or loosening. Triplane position is maintained. No acute destructive changes. No soft tissue gas. No complications seen. [facility] XR Ankle - right AP and Late ral and obliqueOrdered By: Shey Conklin on 09-04-2024 [facility] Work Phone: Radiology Study observation (narrative) [facility] Work Phone: CNOVon 08-28-2024 CNOV Office Visit (AGPOB1 ) GAYLE THOMPSON ([id number]) 1990 F Date Time Provider Department 08/28/24 11:00 AM AMARJIT STOREY AGPOB1 During your visit today, we recorded the following information about you: Respiration Weight Height 20/minute 108.4 kg 1.727 m Amarjit Storey DPM 09/03/2024 5:39 PM Signed DOS: 08/16/2024 POD: 12 days Procedure: Ankle Arthrodesis, Right Distal Tibiofibular Joint Arthrodesis, Right This 34 year old female presents for a post op visit. Patient states they are doing well. Pain is well controlled by Percocet . Does get tingling at times. Has been icing and elevating the extremity as instructed preoperatively and has been nonweightbearing to the right lower extremity in a splint. Denies any current nausea, vomiting, fever, chills, shortness of breath, chest pain or calf pain. Has been taking Aspirin for DVT prophylaxis. Denies any other pedal complaints PAST MEDICAL HISTORY Diagnosis Date Acute right ankle pain Allergies Asthma as a kid Delayed emergence from general anesthesia Generalized anxiety disorder Hammer toe Migraines Palpitations Plantar fasciitis PONV (postoperative nausea and vomiting) Current Outpatient Medications Medication Sig doxycycline (VIBRA-TABS) 100 mg tablet Take 1 tablet by mouth two times a day for 10 days. oxyCODONE-acetaminophe n (PERCOCET) 5-325 mg tablet Take 1 tablet by mouth every 4 hours as needed for pain for up to 7 days. for pain. oxyCODONE-acetaminophe n (PERCOCET) 5-325 mg tablet Take 1-2 tablets by mouth every 4 hours as needed for pain for up to 7 days. gabapentin (NEURONTIN) 300 mg capsule Take 1 capsule by mouth daily at bedtime for 30 days. amitriptyline (ELAVIL) 10 mg tablet Take 1 tablet by mouth daily at bedtime. (Patient not taking: Reported on 08/23/2024) SUMAtriptan (IMITREX) 25 mg tablet Take 1 tablet (25 mg) by mouth as needed for migraine headache (see administration instructions) (at onset of headache. May repeat after 2 hours.). May repeat dose after 2 hours if needed. Maximum daily dose is 200 mg per day. dulaglutide (TRULICITY) 3 mg/0.5 mL pen injector Inject 3 mg subcutaneously one time a week for 28 days. (Patient not taking: Reported on 08/17/2024) predniSONE (DELTASONE) 10 mg tablet Dispense 25 tablets of Prednisone 10 mg for a 13 day course of therapy. Please take as directed: 1 tablet every 8 hours for the first 4 days, followed by 1 tablet every 12 hours for the next 4 days, followed by 1 tablet daily for the final 5 days. omeprazole (PRILOSEC) 40 mg capsule Take 1 capsule by mouth once daily. albuterol HFA (PROVENTIL HFA, VENTOLIN HFA) 90 mcg/actuation inhaler Inhale 2 Puffs as instructed every 6 hours as needed. atenolol (TENORMIN) 25 mg tablet Take 0.5 tablets by mouth once daily as needed. For HR > 100 No current facility-administered medications for this visit. ALLERGIES No Known Allergies Objective: Patient presents nonweightbearing to right leg in splint. Dressing is dry, clean, and intact with normal strike through noted. Problem focus examination to the right lower extremity: Incision site is well coapted without evidence of dehiscence. Mild erythema and edema surrounding surgical site. Skin around medial aspect of incision discolored with minor necrotic changes and slight blistering appreciated. No evidence of infection. No drainage. No lymphadenopathy. No lymphangitis. No surrounding cellulitis. Patient has no pain to palpation of calf. The calf is soft, supple and nontender without evidence of DVT. Negative Charli's test. Satisfactory alignment is noted. Pedal pulses are palpable. Capillary refill time is less than three seconds to all digits. Sensations are intact to light touch. Radiographs: not obtained during this visit Assessment: Satisfactory post-operative progress Plan: The patient was educated on clinical examination findings, postoperative prognosis and protocol. All questions were answered to patient's apparent satisfaction. - Bandage removed and new dressing applied. - Sutures were left intact at today's visit . - Patient to continue nonweightbearing to the operative extremity in CAM boot - Continue to finish Doxycyline as prescribed. - Mesalt and dry dressing applied to incision site. Follow up in 1 week. Marguerite Long DPM PGY-3 I personally saw and evaluated the patient. I reviewed the resident's note. I agree with the resident's assessment and plan unless otherwise noted. Amarjit Storey DPM, Marguerite Apple DPM 08/28/2024 11:05 AM Addendum Continue mesalt and cleaning with hibiclens Continue nonweightbearing in a boot Allergies As of Date: 08/28/2024 (No Known Allergies) Date Reviewed: 08/28/2024 Reviewed by: Marguerite Long DPM - Fully Assessed Reason for Visit: Post Op [174] Established Patient [175 (more content not included)... [facility] CNOVon 08-23-2024 CNOV Office Visit (AGPOB1 ) DONNAYANIRAGAYLE Joie ([id number]) 1990 F Date Time Provider Department 08/23/24 1:45 PM AMARJIT STOREY AGPOB1 During your visit today, we recorded the following information about you: Respiration Weight Height 16/minute 108.4 kg 1.727 m Amarjit Storey, DPVivian 09/20/2024 7:05 AM Signed DOS: 08/16/2024 POD: 7 days Procedure: Ankle Arthrodesis, Right Distal Tibiofibular Joint Arthrodesis, Right This 34 year old female presents for a post op visit. Patient states they are doing well. Pain is well controlled by Percocet . Has been icing and elevating the extremity as instructed preoperatively and has been nonweightbearing to the right lower extremity in a splint. Denies any current nausea, vomiting, fever, chills, shortness of breath, chest pain or calf pain. She states the pain is slightly better with the splint off. Has been taking Aspirin for DVT prophylaxis. Denies any other pedal complaints PAST MEDICAL HISTORY Diagnosis Date Acute right ankle pain Allergies Asthma as a kid Delayed emergence from general anesthesia Generalized anxiety disorder Hammer toe Migraines Palpitations Plantar fasciitis PONV (postoperative nausea and vomiting) Current Outpatient Medications Medication Sig oxyCODONE-acetaminophe n (PERCOCET) 5-325 mg tablet Take 1-2 tablets by mouth every 4 hours as needed for pain for up to 7 days. gabapentin (NEURONTIN) 300 mg capsule Take 1 capsule by mouth daily at bedtime for 30 days. amitriptyline (ELAVIL) 10 mg tablet Take 1 tablet by mouth daily at bedtime. SUMAtriptan (IMITREX) 25 mg tablet Take 1 tablet (25 mg) by mouth as needed for migraine headache (see administration instructions) (at onset of headache. May repeat after 2 hours.). May repeat dose after 2 hours if needed. Maximum daily dose is 200 mg per day. dulaglutide (TRULICITY) 3 mg/0.5 mL pen injector Inject 3 mg subcutaneously one time a week for 28 days. (Patient not taking: Reported on 08/17/2024) predniSONE (DELTASONE) 10 mg tablet Dispense 25 tablets of Prednisone 10 mg for a 13 day course of therapy. Please take as directed: 1 tablet every 8 hours for the first 4 days, followed by 1 tablet every 12 hours for the next 4 days, followed by 1 tablet daily for the final 5 days. omeprazole (PRILOSEC) 40 mg capsule Take 1 capsule by mouth once daily. albuterol HFA (PROVENTIL HFA, VENTOLIN HFA) 90 mcg/actuation inhaler Inhale 2 Puffs as instructed every 6 hours as needed. atenolol (TENORMIN) 25 mg tablet Take 0.5 tablets by mouth once daily as needed. For HR > 100 No current facility-administered medications for this visit. ALLERGIES No Known Allergies Objective: Patient presents nonweightbearing to right leg in a splint. Dressing is dry, clean, and intact with mild strike through noted. Problem focus examination to the right lower extremity: Incision site is well coapted without evidence of dehiscence. Mild erythema and edema surrounding surgical site. Inflammation Small drainage. No lymphadenopathy. No lymphangitis. No surrounding cellulitis. No signs of infection. Patient has no pain to palpation of calf. The calf is soft, supple and nontender without evidence of DVT. Negative Charli's test. Satisfactory alignment is noted. Pedal pulses are palpable. Capillary refill time is less than three seconds to all digits. Sensations are intact to light touch. Assessment: Satisfactory post-operative progress Plan: The patient was educated on clinical examination findings, postoperative prognosis and protocol. All questions were answered to patient's apparent satisfaction. - Bandage removed and new dressing applied. - Sutures were left intact at today's visit . - Patient to continue nonweightbearing to the operative extremity. - Mesalt and gauze dispensed and advised to change 1-2 times daily. - Tall CAM boot fitted and dispensed. - New Rx for percocet and doxycycline dispensed. - Advised to call if any change or concerns. Follow up Next Monday. Scribe Attestation: By signing my name below, I, Mary Dean MA, attest that this documentation has been prepared under the direction and in the presence of Amarjit Storey DPM. Electronically Signed: Mary Dean MA, Yossi. August 23, 2024 2:03 PM. Clinician Attestation Statement: The information in this document, created by the paramedical aide for me, accurately reflects the services I personally performed and the decisions made by me. I have reviewed and approved this document for accuracy. Amarjit Storey DPM, FACFAS Allergies As of Date: 08/23/2024 (No Known Allergies) Date Reviewed: 08/23/2024 Reviewed by: Mateusz Woody Tech - Fully Assessed Reason for Visit: Established Patient [175] Post Op [174] Primary Visit Diagnosis:Post-operati ve state [Z98.890] Other Visit Diagnosis:Po (more content not included)... [facility] Basic metabolic 2000 panelon 08-19-2024 Anion gap [Moles/Vol] 10 mmol/L Normal 8-15 [facility] Comment on above: Order Comment: Ryanne negrete Type: BLOOD SPECIMEN Ordering Facility: [facility] Address: [address] [place] [address] Performed By: #### 3 024-7, 6 #### [facility] CLIA [id number] [address] [place] [address] [place] Calcium [Mass/Vol] 8.4 mg/dL Low 8.5-10.2 [facility] Comment on above: Order Comment: Ryanne negrete Type: BLOOD SPECIMEN Ordering Facility: [facility] Address: [address] [place] [address] Performed By: #### 3 024-7, 6 #### [facility] CLIA [id number] [address] [place] [address] [place] Chloride [Moles/Vol] 102 mmol/L Normal 98-107 [facility] Comment on above: Order Comment: Ryanne negrete Type: BLOOD SPECIMEN Ordering Facility: [facility] Address: [address] [place] [address] Performed By: #### 3 024-7, 3052-6 #### [facility] CLIA [id number] 1 [place] [address] [place] CO2 [Moles/Vol] 22 mmol/L Normal 22-30 [facility] Comment on above: Order Comment: Specrenae negrete Type: BLOOD SPECIMEN Ordering Facility: [facility] Address: [address] [place] [address] Performed By: #### 3 024-7, 3053-01 #### [facility] CLIA [id number] [address] [place] Creatinine [Mass/Vol] 0.82 mg/dL Normal 0.58-0.96 [facility] Comment on above: Order Comment: Ryanne men Type: BLOOD SPECIMEN Ordering Facility: [facility] Address: [address] [place] [address] Performed By: #### 3 024-7, 3053-01 #### [facility] CLIA [id number] [address] Creatinine and Glomerular filtration rate.predicted panel (S/P/Bld) 98 mL/min/1.73m??? Normal >=60 [facility] Comment on above: Order Comment: Ryanne negrete Type: BLOOD SPECIMEN Ordering Facility: [facility] Address: [address] [place] [address] Result Comment: Malika mated Glomerular Filtration Rate (eGFR) is calculated using the 2020 CKD-EPI creatinine equation. This equation utilizes serum creatinine, sex, and age as parameters. The creatinine assay has traceable calibration to isotope dilution-mass spectrometry. Refer to KDIGO guidelines for clinical interpretation. In patients with unstable renal function, e.g. those with acute kidney injury, the eGFR may not accurately reflect actual GFR. Performed By: #### 3 024-7, 3053-01 #### [facility] CLIA [id number] 1 [place] [address] [place] Glucose [Mass/Vol] 115 mg/dL High 74-99 [facility] Comment on above: Order Comment: Ryanne caden Type: BLOOD SPECIMEN Ordering Facility: [facility] Address: [address] [place] [address] Result Comment: The [place] [employer] (ADA) provides guidance for cutoff values for fasting glucose and random glucose. The ADA defines fasting as no caloric intake for at least 8 hours. Fasting plasma glucose results between 100 to 125 mg/dL indicate increased risk for diabetes (prediabetes). Fasting plasma glucose results greater than or equal to 126 mg/dL meet the criteria for diagnosis of diabetes. In the absence of unequivocal hyperglycemia, results should be confirmed by repeat testing. In a patient with classic symptoms of hyperglycemia or hyperglycemic crisis, random plasma glucose results greater than or equal to 200 mg/dL meet the criteria for diagnosis of diabetes. Reference: Standards of Medical Care in Diabetes 2016, [place] [employer]. Diabetes Care. 2016.39(Suppl 1). Performed By: #### 3 024-7, 3053-01 #### [facility] CLIA [id number] 1 [place] [address] [place] Potassium [Moles/Vol] 3.8 mmol/L Normal 3.7-5.1 [facility] Comment on above: Order Comment: Ryanne negrete Type: BLOOD SPECIMEN Ordering Facility: [facility] Address: [address] [place] [address] Performed By: #### 3 024-7, 3053-01 #### [facility] CLIA [id number] [address] STATES OF [facility] Sodium [Moles/Vol] 134 mmol/L Low 136-144 [facility] Comment on above: Order Comment: Ryanne negrete Type: BLOOD SPECIMEN Ordering Facility: [facility] Address: [address] [place] [address] Performed By: #### 3 024-7, 3053-01 #### [facility] CLIA [id number] [address] STATES OF [facility] Urea nitrogen [Mass/Vol] 15 mg/dL Normal 7-21 [facility] Comment on above: Order Comment: Ryanne negrete Type: BLOOD SPECIMEN Ordering Facility: [facility] Address: [address] [place] [address] Performed By: #### 3 024-7, 3053-01 #### [facility] CLIA [id number] [address] [place] CBC panel Auto (Bld)on 08-19 Erythrocyte distribution width (RBC) [Ratio] 12.6 % Normal 11.5-15.0 [facility] Comment on above: Order Comment: Speci men Type: BLOOD SPECIMEN Ordering Facility: [facility] Address: [address] [place] [address] Performed By: #### 5 8410-2 #### [facility] CLIA [id number] [address] OF [facility] Hematocrit (Bld) [Volume fraction] 38.9 % Normal 36.0-46.0 [facility] Comment on above: Order Comment: Speci men Type: BLOOD SPECIMEN Ordering Facility: [facility] Address: [address] [place] [address] Performed By: #### 5 8410-2 #### [facility] CLIA [id number] [address] [place] Hemoglobin (Bld) [Mass/Vol] 12.8 g/dL Normal 11.5-15.5 [facility] Comment on above: Order Comment: Speci men Type: BLOOD SPECIMEN Ordering Facility: [facility] Address: [address] [place] [address] Performed By: #### 5 8410-2 #### [facility] CLIA [id number] [address] STATES OF [facility] MCH (RBC) [Entitic mass] 30.6 pg Normal 26.0-34.0 [facility] Comment on above: Order Comment: Speci men Type: BLOOD SPECIMEN Ordering Facility: [facility] Address: [address] [place] [address] Performed By: #### 5 8410-2 #### [facility] CLIA [id number] [address] [place] MCHC (RBC) [Mass/Vol] 32.9 g/dL Normal 30.5-36.0 [facility] Comment on above: Order Comment: Speci men Type: BLOOD SPECIMEN Ordering Facility: [facility] Address: [address] [place] [address] Performed By: #### 5 8410-2 #### [facility] CLIA [id number] [address] OF [place] MCV (RBC) [Entitic vol] 93.1 fL Normal 80.0-100.0 [facility] Comment on above: Order Comment: Speci men Type: BLOOD SPECIMEN Ordering Facility: [facility] Address: [address] [place] [address] Performed By: #### 5 8410-2 #### [facility] CLIA [id number] [address] [place] Nucleated RBC (Bld) [#/Vol] 10*3/uL Normal <0.01 [facility] Comment on above: Order Comment: Speci men Type: BLOOD SPECIMEN Ordering Facility: [facility] Address: [address] [place] [address] Performed By: #### 5 8410-2 #### [facility] CLIA [id number] [address] [place] Platelet mean volume (Bld) [Entitic vol] 10.6 fL Normal 9.0-12.7 [facility] Comment on above: Order Comment: Speci men Type: BLOOD SPECIMEN Ordering Facility: [facility] Address: [address] [place] [address] Performed By: #### 5 8410-2 #### [facility] CLIA [id number] [address] Platelets (Bld) [#/Vol] 150 10*3/uL Normal 150-400 [facility] Comment on above: Order Comment: Speci men Type: BLOOD SPECIMEN Ordering Facility: [facility] Address: [address] [place] [address] Performed By: #### 5 8410-2 #### [facility] CLIA [id number] [address] [place] RBC (Bld) [#/Vol] 4.18 10*6/uL Normal 3.90-5.20 [facility] Comment on above: Order Comment: Speci men Type: BLOOD SPECIMEN Ordering Facility: [facility] Address: [address] [place], [place] [address], [place] [address] Performed By: #### 5 8410-2 #### [facility] CLIA [id number] [address] OF [place] WBC (Bld) [#/Vol] 8.17 10*3/uL Normal 3.70-11.00 [facility] Comment on above: Order Comment: Speci men Type: BLOOD SPECIMEN Ordering Facility: [facility] Address: [address] [place] [id number] Performed By: #### 5 8410-2 #### [facility] CLIA [id number] [address] CNCOon 08-19-2024 CNCO Letter Text Normal [facility] CNDSon 08-19-2024 CNDS HNO ID: [id number] Author: AMARJIT STOREY DPM Service: Orthopaedic Surgery Author Type: Nurse Practitioner Type: Discharge Summary Filed: 08/27/2024 15:16 Note Text: Attestation signed by Amarjit Storey DPM at 08/27/2024 3:16 PM I discussed this case with the resident and reviewed the resident's note. I agree with the resident's assessment and plan unless otherwise noted. Amarjit Storey DPM, FACFAS ORTHOPEDIC SURGERY DISCHARGE SUMMARY ADMISSION DATE: 08/17/2024 DISCHARGE DATE: 08/19/2024 Attending Physician: Amarjit Storey D* Admitting Diagnosis: pain control s/p right ankle arthrodesis Discharge Diagnosis: Same as admitting Additional Diagnoses: ACTIVE PROBLEM LIST Unspecified Acquired Deformity of Toe Hammer Toe Toe Pain Right Knee Pain Plantar Fasciitis of Right Foot Urticaria Class 2 Obesity Without Serious Comorbidity With Body Mass Index (Bmi) of 36.0 to 36.9 in Adult Cystic Acne Hyperhidrosis Anxiety Difficulty Concentrating Closed Fracture of Distal End of Right Fibula Concussion Without Loss of Consciousness Ptsd (Post-Traumatic Stress Disorder) Palpitations Dizziness Daytime Sleepiness Psvt (Paroxysmal Supraventricular Tachycardia) (Hcc) Sinus Bradycardia Pre-Op Examination Unable to Lose Weight Cellulitis Facial Cellulitis Abscess of Face Dietary Counseling and Surveillance Bmi 35.0-35.9,Adult Osteoarthritis of Right Ankle Migraine With Aura Mild Intermittent Asthma Without Complication Gastroesophageal Reflux Disease Without Esophagitis S/P Ankle Arthrodesis Surgeries During Hospitalization:none Consultations: Case Management Hospital Course: The patient is a 34 year old female who has been followed by Dr. Storey, Irish Mann MD. It was determined she would benefit from readmission for pain control. She was subsequently sent to her hospital room for postoperative management. Once on the floor her course was unremarkable and she did well. Her diet was advanced which she tolerated. Her pain was controlled improved. She independent in room with ambulation and ADL's and stable for discharged to home. She remained afebrile with stable vital signs throughout her stay. She was stable for discharge on hospital stay day #2. Complete and comprehensive discharge instructions were provided to the patient as well as necessary prescriptions. The patient had no further questions and was advised to call with any questions, concerns, or problems. Patient was hemodynamically stable. Relevant labs included: Hemoglobin (g/dL) Date Value 08/19/2024 12.8 08/18/2024 12.8 08/17/2024 13.9 Hematocrit (%) Date Value 08/19/2024 38.9 08/18/2024 38.7 08/17/2024 41.9 Discharge Antibiotics: None DVT Prophylaxis: Sequential Compression Devices Complications: Continued throughout the hospital course without complications. Surgical site: Splint removed and replaced on admission. Keep splint to right lower extremity clean and dry. Utilize ice and elevate extremity to reduce pain and swelling. Weight bearing: non weight bearing right lower extremity Diet: regular diet Patient Condition @ Discharge: Stable BP 108/80 Pulse 76 Temp 37.1 ?C (98.8 ?F) (Oral) Resp 18 Ht 172.7 cm (5' 8) Wt 108.8 kg (239 lb 13.8 oz) LMP (LMP Unknown) SpO2 95% BMI 36.47 kg/m? Discharge Disposition: Home with Self Care The patient was instructed to follow-up in Future Appointments Date Time Provider Department Center 08/23/2024 1:45 PM Amarjit Storey DPM [id number] 09/24/2024 9:30 AM Lyle Sykes APRN.DIE DRAWING CHECKER [id number] 09/24/2024 1:00 PM GI/ 1 [facility] (I-STAT) [facility] 09/24/2024 1:00 PM SPEECH MBS [facility] SPM[facility] 10/16/2024 2:30 PM Aris Garcia MD [facility] Stro Highest Readmission Risk Score: 12 The 30 day readmissions risk score is derived from an internally validated risk model which evaluates patient level characteristics, utilization history, medication orders and lab results up until the day of discharge. Patients with a score of 40 or above are considered highest risk for readmission. Specific patient level drivers will be listed at the bottom of the summary. The 30 day readmissions risk score is derived from an internally validated risk model which evaluates patient level characteristics, utilization history, medication orders and lab results up until the day of discharge. Patients with a score of 40 or above are considered highest risk for readmission. Specific patient level drivers will be listed at the bottom of the summary. Discharge Medications: Medication List CONTINUE taking these medications albuterol HFA 90 mcg/actuation inhaler Commonly known as: PROVENTIL HFA, (more content not included)... Normal [facility] Basic metabolic 2000 panelon 08-18-2024 Anion gap [Moles/Vol] 9 mmol/L Normal 8-15 [facility] Comment on above: Order Comment: Speci men Type: BLOOD SPECIMEN Ordering Facility: [facility] Address: [address] [place] [address] Performed By: #### 3 024-7, 3053-6 #### [facility] CLIA [id number] 1 [place] [address] [place] Calcium [Mass/Vol] 8.1 mg/dL Low 8.5-10.2 [facility] Comment on above: Order Comment: Speci men Type: BLOOD SPECIMEN Ordering Facility: [facility] Address: [facility] [place] [address] Performed By: #### 3 024-7, 6 #### [facility] CLIA [id number] [address] [place] Chloride [Moles/Vol] 106 mmol/L Normal 98-107 [facility] Comment on above: Order Comment: Speci men Type: BLOOD SPECIMEN Ordering Facility: [facility] Address: [address] [place] [address] Performed By: #### 3 024-7, 3053-01 #### [facility] CLIA [id number] [address] [place] CO2 [Moles/Vol] 24 mmol/L Normal 22-30 [facility] Comment on above: Order Comment: Speci men Type: BLOOD SPECIMEN Ordering Facility: [facility] Address: [address] [place] [address] Performed By: #### 3 024-7, 6 #### [facility] CLIA [id number] [address] [place] Creatinine [Mass/Vol] 1.00 mg/dL High 0.58-0.96 [facility] Comment on above: Order Comment: Speci men Type: BLOOD SPECIMEN Ordering Facility: [facility] Address: [address] [place] [address] Performed By: #### 3 024-7, 6 #### [facility] CLIA [id number] [address] Creatinine and Glomerular filtration rate.predicted panel (S/P/Bld) 77 mL/min/1.73m??? Normal >=60 [facility] Comment on above: Order Comment: Speci men Type: BLOOD SPECIMEN Ordering Facility: [facility] Address: [address] [place] [address] Result Comment: Malika mated Glomerular Filtration Rate (eGFR) is calculated using the 2020 CKD-EPI creatinine equation. This equation utilizes serum creatinine, sex, and age as parameters. The creatinine assay has traceable calibration to isotope dilution-mass spectrometry. Refer to KDIGO guidelines for clinical interpretation. In patients with unstable renal function, e.g. those with acute kidney injury, the eGFR may not accurately reflect actual GFR. Performed By: #### 3 024-7, 3053-01 #### [facility] CLIA [id number] 1 [place] [address] [place] Glucose [Mass/Vol] 105 mg/dL High 74-99 [facility] Comment on above: Order Comment: Ryanne negrete Type: BLOOD SPECIMEN Ordering Facility: [facility] Address: [address] [place] [address] Result Comment: The [place] Diabetes [employer] (ADA) provides guidance for cutoff values for fasting glucose and random glucose. The ADA defines fasting as no caloric intake for at least 8 hours. Fasting plasma glucose results between 100 to 125 mg/dL indicate increased risk for diabetes (prediabetes). Fasting plasma glucose results greater than or equal to 126 mg/dL meet the criteria for diagnosis of diabetes. In the absence of unequivocal hyperglycemia, results should be confirmed by repeat testing. In a patient with classic symptoms of hyperglycemia or hyperglycemic crisis, random plasma glucose results greater than or equal to 200 mg/dL meet the criteria for diagnosis of diabetes. Reference: Standards of Medical Care in Diabetes 2016, [place] [employer]. Diabetes Care. 2016.39(Suppl 1). Performed By: #### 3 024-7, 3053-01 #### [facility] CLIA [id number] 1 [place] [address] [place] Potassium [Moles/Vol] 4.2 mmol/L Normal 3.7-5.1 [facility] Comment on above: Order Comment: Ryanne negrete Type: BLOOD SPECIMEN Ordering Facility: [facility] Address: [address] [place] [address] Performed By: #### 3 024-7, 3053-01 #### [facility] CLIA [id number] 1 [place] [address] [place] Sodium [Moles/Vol] 139 mmol/L Normal 136-144 [facility] Comment on above: Order Comment: Speci men Type: BLOOD SPECIMEN Ordering Facility: [facility] Address: [address] [place] [address] Performed By: #### 3 024-7, 3053-01 #### [facility] CLIA [id number] [address] [place] Urea nitrogen [Mass/Vol] 16 mg/dL Normal 7-21 [facility] Comment on above: Order Comment: Speci men Type: BLOOD SPECIMEN Ordering Facility: [facility] Address: [address] [place] [address] Performed By: #### 3 024-7, 3053-01 #### [facility] CLIA [id number] [address] [place] CBC panel Auto (Bld)on 08-18 Erythrocyte distribution width (RBC) [Ratio] 13.1 % Normal 11.5-15.0 [facility] Comment on above: Order Comment: Speci men Type: BLOOD SPECIMEN Ordering Facility: [facility] Address: [address] [place] [address] Performed By: #### 3 024-7, 3053-01 #### [facility] CLIA [id number] [address] [place] Hematocrit (Bld) [Volume fraction] 38.7 % Normal 36.0-46.0 [facility] Comment on above: Order Comment: Speci men Type: BLOOD SPECIMEN Ordering Facility: [facility] Address: [address] [place] [address] Performed By: #### 3 024-7, 3053-01 #### [facility] CLIA [id number] [address] [place] Hemoglobin (Bld) [Mass/Vol] 12.8 g/dL Normal 11.5-15.5 [facility] Comment on above: Order Comment: Speci men Type: BLOOD SPECIMEN Ordering Facility: [facility] Address: [address] [place] [address] Performed By: #### 3 024-7, 3053-01 #### [facility] CLIA [id number] [address] MCH (RBC) [Entitic mass] 31.1 pg Normal 26.0-34.0 [facility] Comment on above: Order Comment: Speci men Type: BLOOD SPECIMEN Ordering Facility: [facility] Address: [address] [place] [address] Performed By: #### 3 024-7, 3053-01 #### [facility] CLIA [id number] [address] MCHC (RBC) [Mass/Vol] 33.1 g/dL Normal 30.5-36.0 [facility] Comment on above: Order Comment: Speci men Type: BLOOD SPECIMEN Ordering Facility: [facility] Address: [address] [place] [address] Performed By: #### 3 024-7, 3053-01 #### [facility] CLIA [id number] [address] MCV (RBC) [Entitic vol] 93.9 fL Normal 80.0-100.0 [facility] Comment on above: Order Comment: Speci men Type: BLOOD SPECIMEN Ordering Facility: [facility] Address: [address] [place] [address] Performed By: #### 3 024-7, 3053-01 #### [facility] CLIA [id number] [address] Nucleated RBC (Bld) [#/Vol] 10*3/uL Normal <0.01 [facility] Comment on above: Order Comment: Speci men Type: BLOOD SPECIMEN Ordering Facility: [facility] Address: [address] [place] [address] Performed By: #### 3 024-7, 3053-01 #### [facility] CLIA [id number] [address] Platelet mean volume (Bld) [Entitic vol] 10.7 fL Normal 9.0-12.7 [facility] Comment on above: Order Comment: Speci men Type: BLOOD SPECIMEN Ordering Facility: [facility] Address: [address] [place] [address] Performed By: #### 3 024-7, 3053-01 #### [facility] CLIA [id number] [address] Platelets (Bld) [#/Vol] 142 10*3/uL Low 150-400 [facility] Comment on above: Order Comment: Speci men Type: BLOOD SPECIMEN Ordering Facility: [facility] Address: [address] [place] [address] Performed By: #### 3 024-7, 3053-01 #### [facility] CLIA [id number] [address] RBC (Bld) [#/Vol] 4.12 10*6/uL Normal 3.90-5.20 [facility] Comment on above: Order Comment: Speci men Type: BLOOD SPECIMEN Ordering Facility: [facility] Address: [address] [place] [address] Performed By: #### 3 024-7, 3053-01 #### [facility] CLIA [id number] [address] WBC (Bld) [#/Vol] 9.33 10*3/uL Normal 3.70-11.00 [facility] Comment on above: Order Comment: Speci men Type: BLOOD SPECIMEN Ordering Facility: [facility] Address: [address] [place] [address] Performed By: #### 3 024-7, 3053-01 #### [facility] CLIA [id number] [address] HISTORY PHYSICALon HISTORY PHYSICAL HNO ID: [id number] Author: AMARJIT STOREY DPM Service: Orthopaedic Surgery Author Type: Resident Type: H&P Filed: 08/19/2024 06:29 Note Text: Attestation signed by Amarjit Storey DPM at 08/19/2024 6:29 AM I discussed this case with the resident and reviewed the resident's note. I agree with the resident's assessment and plan unless otherwise noted. Amarjit Storey DPM, FACFAS ORTHOPAEDIC SURGERY HANDP Pt: GAYLE THOMPSON Date of Admission: 08/17/2024 Admitting Physician: Dr. Storey Chief complaint: Pain s/p right ankle arthrodesis HPI: 34 year old female presented to [facility] complaining of significant pain to the right ankle following right ankle arthrodesis with Dr. Storey yesterday. The patient states she was taking her oral pain medication as schedule but continued to have significant pain without relief prompting her to present to [facility]. Patient was then transferred here for admission for pain control. Patient and family in room state she has previously required admission for pain control following past procedures. Splint taken down by ED resident which did improve pain per patient. The patient has no other complaints and denies pain in any other location. PAST MEDICAL HISTORY Diagnosis Date Acute right ankle pain Allergies Asthma as a kid Delayed emergence from general anesthesia Generalized anxiety disorder Hammer toe Migraines Palpitations Plantar fasciitis PONV (postoperative nausea and vomiting) PAST SURGICAL HISTORY Procedure Laterality Date ANKLE SURGERY HX Right 07/27/2021 APPLICATION UNIPLANE EXTERNAL FIXATION SYSTEM Right 07/18/2021 CLTX FX W8 BRG ARTCLR PRTN DSTL TIB W/SKEL TRACJ Right 07/18/2021 CORRECTION HAMMERTOE Right 2010, 2013 2018 EXTRACTION ERUPTED TOOTH 2016 wisdom teeth PAST SURGICAL HISTORY OF Right 10/23/2023 1. Removal internal fixation, right tibia PROCEDURE Bilateral 2010 pins in big toes PT ED OBSTETRICS AND GYNECOLOGY 08/2023 ENDOMETRIAL ABLATION SALPINGECTOMY COMPLETE/PARTIAL UNI/BI SPX 2020 Allergies: Patient has no known allergies. No current facility-administered medications for this encounter. Current Outpatient Medications Medication Sig oxyCODONE-acetaminophe n (PERCOCET) 5-325 mg tablet Take 1-2 tablets by mouth every 4 hours as needed for pain for up to 7 days. gabapentin (NEURONTIN) 300 mg capsule Take 1 capsule by mouth daily at bedtime for 30 days. amitriptyline (ELAVIL) 10 mg tablet Take 1 tablet by mouth daily at bedtime. SUMAtriptan (IMITREX) 25 mg tablet Take 1 tablet (25 mg) by mouth as needed for migraine headache (see administration instructions) (at onset of headache. May repeat after 2 hours.). May repeat dose after 2 hours if needed. Maximum daily dose is 200 mg per day. dulaglutide (TRULICITY) 3 mg/0.5 mL pen injector Inject 3 mg subcutaneously one time a week for 28 days. (Patient not taking: Reported on 08/17/2024) predniSONE (DELTASONE) 10 mg tablet Dispense 25 tablets of Prednisone 10 mg for a 13 day course of therapy. Please take as directed: 1 tablet every 8 hours for the first 4 days, followed by 1 tablet every 12 hours for the next 4 days, followed by 1 tablet daily for the final 5 days. (Patient not taking: Reported on 08/17/2024) omeprazole (PRILOSEC) 40 mg capsule Take 1 capsule by mouth once daily. Naproxen Sodium 550 mg tablet Take 1 tablet by mouth two times a day with meals. (Patient not taking: Reported on 08/17/2024) albuterol HFA (PROVENTIL HFA, VENTOLIN HFA) 90 mcg/actuation inhaler Inhale 2 Puffs as instructed every 6 hours as needed. atenolol (TENORMIN) 25 mg tablet Take 0.5 tablets by mouth once daily as needed. For HR > 100 FAMILY HISTORY Problem Relation Age of Onset other (Circulation problems) Mother other (High Blood Pressure) Mother other (fibromyalgia) Mother Hypertension Mother Cancer Mother cervical cancer Allergies Mother Bee venom, seasonal Depression Mother Anxiety disorder Mother Migraines Mother Thyroid Mother ADD/ADHD Father Migraines Sister Anxiety disorder Sister Depression Sister Asthma Sister Obesity Sister Thyroid Sister other (Gallbladder) Sister Asthma Brother Alzheimer's Disease Brother Diabetes Brother Cancer Maternal Grandmother Arthritis Maternal Grandmother COPD Maternal Grandmother other (ibs) Maternal Grandfather Obesity Paternal Grandmother other (colitis) Paternal Grandmother other (GERD) Daughter ADD/ADHD Son Allergies Son several other (gerd) Son Colon Cancer Other Social History Tobacco Use Smoking status: Never Smokeless tobacco: Never Vaping Use Vaping status: Never Used Substance Use Topics Alcohol use: Yes Comment: occ.< once monthly Drug use: Never R (more content not included)... Normal [facility] Basic metabolic 2000 panelon 08-17-2024 Anion gap [Moles/Vol] 10 mmol/L Normal 8-15 [facility] Comment on above: Order Comment: Speci men Type: BLOOD SPECIMEN Ordering Facility: [facility] Address: [address] [place] [address] Performed By: #### 5 8410-2 #### [facility] CLIA [id number] 1 [place] [address] [place] Calcium [Mass/Vol] 8.3 mg/dL Low 8.5-10.2 [facility] Comment on above: Order Comment: Speci men Type: BLOOD SPECIMEN Ordering Facility: [facility] Address: [address] [place] [address] Performed By: #### 5 8410-2 #### [facility] CLIA [id number] 1 [place] [address] [place] Chloride [Moles/Vol] 105 mmol/L Normal 98-107 [facility] Comment on above: Order Comment: Speci men Type: BLOOD SPECIMEN Ordering Facility: [facility] Address: [address] [place] [address] Performed By: #### 5 8410-2 #### [facility] CLIA [id number] 1 [place] [address] [place] CO2 [Moles/Vol] 24 mmol/L Normal 22-30 [facility] Comment on above: Order Comment: Speci men Type: BLOOD SPECIMEN Ordering Facility: [facility] Address: [address] [place] [address] Performed By: #### 5 8410-2 #### [facility] CLIA [id number] [address] STATES OF [facility] Creatinine [Mass/Vol] 1.20 mg/dL High 0.58-0.96 [facility] Comment on above: Order Comment: Speci men Type: BLOOD SPECIMEN Ordering Facility: [facility] Address: [address] [place] [address] Performed By: #### 5 8410-2 #### [facility] CLIA [id number] [address] Creatinine and Glomerular filtration rate.predicted panel (S/P/Bld) 62 mL/min/1.73m??? Normal >=60 [facility] Comment on above: Order Comment: Speci men Type: BLOOD SPECIMEN Ordering Facility: [facility] Address: [address] [place] [address] Result Comment: Malika mated Glomerular Filtration Rate (eGFR) is calculated using the 2020 CKD-EPI creatinine equation. This equation utilizes serum creatinine, sex, and age as parameters. The creatinine assay has traceable calibration to isotope dilution-mass spectrometry. Refer to KDIGO guidelines for clinical interpretation. In patients with unstable renal function, e.g. those with acute kidney injury, the eGFR may not accurately reflect actual GFR. Performed By: #### 5 8410-2 #### [facility] CLIA [id number] [address] [place] [address] OF [facility] Glucose [Mass/Vol] 98 mg/dL Normal 74-99 [facility] Comment on above: Order Comment: Speci men Type: BLOOD SPECIMEN Ordering Facility: [facility] Address: [address] [place] [address] Result Comment: The [place] [employer] (ADA) provides guidance for cutoff values for fasting glucose and random glucose. The ADA defines fasting as no caloric intake for at least 8 hours. Fasting plasma glucose results between 100 to 125 mg/dL indicate increased risk for diabetes (prediabetes). Fasting plasma glucose results greater than or equal to 126 mg/dL meet the criteria for diagnosis of diabetes. In the absence of unequivocal hyperglycemia, results should be confirmed by repeat testing. In a patient with classic symptoms of hyperglycemia or hyperglycemic crisis, random plasma glucose results greater than or equal to 200 mg/dL meet the criteria for diagnosis of diabetes. Reference: Standards of Medical Care in Diabetes 2016, [place] [employer]. Diabetes Care. 2016.39(Suppl 1). Performed By: #### 5 8410-2 #### [facility] CLIA [id number] [address] [place] Potassium [Moles/Vol] 3.8 mmol/L Normal 3.7-5.1 [facility] Comment on above: Order Comment: Pki caden Type: BLOOD SPECIMEN Ordering Facility: [facility] Address: [address] [place] [address] Performed By: #### 5 8410-2 #### [facility] CLIA [id number] [address] STATES [facility] Sodium [Moles/Vol] 139 mmol/L Normal 136-144 [facility] Comment on above: Order Comment: Ryanne negrete Type: BLOOD SPECIMEN Ordering Facility: [facility] Address: [address] [place] [address] Performed By: #### 5 8410-2 #### [facility] CLIA [id number] [address] STATES [facility] Urea nitrogen [Mass/Vol] 13 mg/dL Normal 7-21 [facility] Comment on above: Order Comment: Ryanne negrete Type: BLOOD SPECIMEN Ordering Facility: [facility] Address: [address] [place] [address] Performed By: #### 5 8410-2 #### [facility] CLIA [id number] [address] [place] CBC W Auto Differential pane l (Bld)on 08-17-2024 Basophils (Bld) [#/Vol] 10*3/uL Normal <0.11 [facility] Comment on above: Order Comment: Ryanne negrete Type: BLOOD SPECIMEN Ordering Facility: [facility] Address: [address] [place] [address] Performed By: #### 3 024-7, 3053-01 #### [facility] CLIA [id number] [address] Basophils/100 WBC (Bld) 0.1 % Normal [facility] Comment on above: Order Comment: Speci men Type: BLOOD SPECIMEN Ordering Facility: [facility] Address: [address] [place] [address] Performed By: #### 3 024-7, 3053-01 #### [facility] CLIA [id number] [address] OF [facility] Differential cell count method Nom (Bld) Auto Normal [facility] Comment on above: Order Comment: Speci men Type: BLOOD SPECIMEN Ordering Facility: [facility] Address: [address] [place] [address] Performed By: #### 3 024-7, 3053-01 #### [facility] CLIA [id number] [address] STATES OF [facility] Eosinophils (Bld) [#/Vol] 0.06 10*3/uL Normal <0.46 [facility] Comment on above: Order Comment: Speci men Type: BLOOD SPECIMEN Ordering Facility: [facility] Address: [address] [place] [address] Performed By: #### 3 024-7, 3053-01 #### [facility] CLIA [id number] [address] Eosinophils/100 WBC (Bld) 0.6 % Normal [facility] Comment on above: Order Comment: Speci men Type: BLOOD SPECIMEN Ordering Facility: [facility] Address: [address] [place] [address] Performed By: #### 3 024-7, 3053-01 #### [facility] CLIA [id number] [address] Erythrocyte distribution width (RBC) [Ratio] 13.0 % Normal 11.5-15.0 [facility] Comment on above: Order Comment: Speci men Type: BLOOD SPECIMEN Ordering Facility: [facility] Address: [address] [place] [address] Performed By: #### 3 024-7, 3053-01 #### [facility] CLIA [id number] [address] Hematocrit (Bld) [Volume fraction] 41.9 % Normal 36.0-46.0 [facility] Comment on above: Order Comment: Speci men Type: BLOOD SPECIMEN Ordering Facility: [facility] Address: [address] [place] [address] Performed By: #### 3 024-7, 3053-01 #### [facility] CLIA [id number] [address] OF [facility] Hemoglobin (Bld) [Mass/Vol] 13.9 g/dL Normal 11.5-15.5 [facility] Comment on above: Order Comment: Speci men Type: BLOOD SPECIMEN Ordering Facility: [facility] Address: [address] [place] [address] Performed By: #### 3 024-7, 3053-01 #### [facility] CLIA [id number] [address] Immature granulocytes (Bld) [#/Vol] 0.05 10*3/uL Normal <0.10 [facility] Comment on above: Order Comment: Speci men Type: BLOOD SPECIMEN Ordering Facility: [facility] Address: [address] [place] [address] Performed By: #### 3 024-7, 3053-01 #### [facility] CLIA [id number] [address] Immature granulocytes/100 WBC (Bld) 0.5 % Normal [facility] Comment on above: Order Comment: Speci men Type: BLOOD SPECIMEN Ordering Facility: [facility] Address: [address] [place] [address] Performed By: #### 3 024-7, 3053-01 #### [facility] CLIA [id number] [address] Lymphocytes (Bld) [#/Vol] 1.94 10*3/uL Normal 1.00-4.00 [facility] Comment on above: Order Comment: Speci men Type: BLOOD SPECIMEN Ordering Facility: [facility] Address: [address] [place] [address] Performed By: #### 3 024-7, 6 #### [facility] CLIA [id number] [address] Lymphocytes/100 WBC (Bld) 19.4 % Normal [facility] Comment on above: Order Comment: Speci men Type: BLOOD SPECIMEN Ordering Facility: [facility] Address: [address] [place] [address] Performed By: #### 3 024-7, 6 #### [facility] CLIA [id number] [address] STATES [facility] MCH (RBC) [Entitic mass] 30.5 pg Normal 26.0-34.0 [facility] Comment on above: Order Comment: Speci men Type: BLOOD SPECIMEN Ordering Facility: [facility] Address: [address] [place] [address] Performed By: #### 3 024-7, 6 #### [facility] CLIA [id number] [address] MCHC (RBC) [Mass/Vol] 33.2 g/dL Normal 30.5-36.0 [facility] Comment on above: Order Comment: Speci men Type: BLOOD SPECIMEN Ordering Facility: [facility] Address: [address] [place] [address] Performed By: #### 3 024-7, 3052-6 #### [facility] CLIA [id number] [address] MCV (RBC) [Entitic vol] 92.1 fL Normal 80.0-100.0 [facility] Comment on above: Order Comment: Speci men Type: BLOOD SPECIMEN Ordering Facility: [facility] Address: [address] [place] [address] Performed By: #### 3 024-7, 3052-6 #### [facility] CLIA [id number] [address] [place] [address] [place] Monocytes (Bld) [#/Vol] 0.88 10*3/uL High <0.87 [facility] Comment on above: Order Comment: Speci men Type: BLOOD SPECIMEN Ordering Facility: [facility] Address: [address] [place] [address] Performed By: #### 3 024-7, 3052- #### [facility] CLIA [id number] [address] [place] Monocytes/100 WBC (Bld) 8.8 % Normal [facility] Comment on above: Order Comment: Speci men Type: BLOOD SPECIMEN Ordering Facility: [facility] Address: [address] [place] [address] Performed By: #### 3 024-7, 3053-01 #### [facility] CLIA [id number] [address] [place] Neutrophils (Bld) [#/Vol] 7.06 10*3/uL Normal 1.45-7.50 [facility] Comment on above: Order Comment: Speci men Type: BLOOD SPECIMEN Ordering Facility: [facility] Address: [address] [place] [address] Performed By: #### 3 024-7, 3053-01 #### [facility] CLIA [id number] [address] [place] Neutrophils/100 WBC (Bld) 70.6 % Normal [facility] Comment on above: Order Comment: Speci men Type: BLOOD SPECIMEN Ordering Facility: [facility] Address: [address] [place] [address] Performed By: #### 3 024-7, 3052-6 #### [facility] CLIA [id number] [address] [place] Nucleated RBC (Bld) [#/Vol] Normal [facility] Comment on above: Order Comment: Speci men Type: BLOOD SPECIMEN Ordering Facility: [facility] Address: [facility] [place] [address] Performed By: #### 3 024-7, 3053-01 #### [facility] CLIA [id number] [address] Nucleated RBC/100 WBC (Bld) [Ratio] Normal [facility] Comment on above: Order Comment: Speci men Type: BLOOD SPECIMEN Ordering Facility: [facility] Address: [address] [place] [address] Performed By: #### 3 024-7, 3053-01 #### [facility] CLIA [id number] [address] [place] Platelet mean volume (Bld) [Entitic vol] 11.7 fL Normal 9.0-12.7 [facility] Comment on above: Order Comment: Speci men Type: BLOOD SPECIMEN Ordering Facility: [facility] Address: [address] [place] [address] Performed By: #### 3 024-7, 3053-01 #### [facility] CLIA [id number] [address] [place] Platelets (Bld) [#/Vol] 140 10*3/uL Low 150-400 [facility] Comment on above: Order Comment: Speci men Type: BLOOD SPECIMEN Ordering Facility: [facility] Address: [address] [place] [address] Result Comment: No c lot detected.Platelet count confirmed by manual review of peripheral blood smear. Performed By: #### 3 024-7, 3053-01 #### [facility] CLIA [id number] [address] [place] Platelets Estimate (Bld) [#/Vol] Decreased Normal [facility] Comment on above: Order Comment: Speci men Type: BLOOD SPECIMEN Ordering Facility: [facility] Address: [address] [place] [address] Performed By: #### 3 024-7, 3053-01 #### [facility] CLIA [id number] [address] RBC (Bld) [#/Vol] 4.55 10*6/uL Normal 3.90-5.20 [facility] Comment on above: Order Comment: Speci men Type: BLOOD SPECIMEN Ordering Facility: [facility] Address: [address] [place] [address] Performed By: #### 3 024-7, 305-6 #### [facility] CLIA [id number] [address] RED CELL MORPH Reviewed: normal Normal [facility] Comment on above: Order Comment: Speci men Type: BLOOD SPECIMEN Ordering Facility: [facility] Address: [address] [place] [address] Performed By: #### 3 024-7, 3052-6 #### [facility] CLIA [id number] [address] [place] [address] WBC (Bld) [#/Vol] 10.00 10*3/uL Normal 3.70-11.00 [facility] Comment on above: Order Comment: Speci men Type: BLOOD SPECIMEN Ordering Facility: [facility] Address: [address] [place] [address] Performed By: #### 3 024-7, 3052-6 #### [facility] CLIA [id number] [address] [place] [address] ED NOTEon 08-17-2024 ED NOTE HNO ID: [id number] Author: KATHI ZHANG, ELIZABETH Service: ? Author Type: Registered Nurse Type: ED Notes Filed: 08/17/2024 21:05 Note Text: Bed: 14-ED Expected date: Expected time: Means of arrival: Comments: Son[facility] tx [facility] ED NOTE HNO ID: [id number] Author: MOO RICARDO RN Service: Emergency Medicine Author Type: Registered Nurse Type: ED Notes Filed: 08/17/2024 20:09 Note Text: [facility] at bedside. Report given to transfer team. [facility] ED NOTE HNO ID: [id number] Author: JILLIAN SIMMONS, ELIZABETH Service: Emergency Medicine Author Type: Registered Nurse Type: ED Notes Filed: 08/17/2024 19:34 Note Text: Call placed to [facility] - ETA 45 min [facility] ED NOTE HNO ID: [id number] Author: DONNA LANE RN Service: Emergency Medicine Author Type: Registered Nurse Type: ED Notes Filed: 08/17/2024 19:06 Note Text: Report to ELIZABETH Mcdowell [facility] ED NOTE HNO ID: [id number] Author: MOO RICARDO RN Service: Emergency Medicine Author Type: Registered Nurse Type: ED Notes Filed: 08/17/2024 20:10 Note Text: Change of shift report received from Donna Lynch RN. I assumed patient care at this time. [facility] ED NOTE HNO ID: [id number] Author: DONNA LANE RN Service: Emergency Medicine Author Type: Registered Nurse Type: ED Notes Filed: 08/17/2024 18:22 Note Text: Patient is more alert, able to say where she is, what day it is. Oxygen removed and patient is able to keep SpO2 up to 100% on RA. Dr. Gutierrez notified and orders received for patients continued pain. [facility] ED NOTE HNO ID: [id number] Author: DONNA LANE RN Service: Emergency Medicine Author Type: Registered Nurse Type: ED Notes Filed: 08/17/2024 17:29 Note Text: Patient had corrective ankle surgery yesterday. She has splint to right ankle. She took her 1 Percocet this morning 0200, 0600, 1000,1400, 1530. Patient states that she has had severe pain. Currently toes are warm, pink, dry with rapid cap refill. Patient was given Ketamine by EMS, and she is lethargic, SPO2 is 92% on room arm, and patient does answer most questions appropriately, but is confused at time to where she is and what day it is. [facility] ED PROV NOTEon 08-17-2024 ED PROV NOTE HNO ID: [id number] Author: YAEL MYERS DO Service: Emergency Medicine Author Type: Resident Type: ED Provider Notes Filed: 08/28/2024 07:16 Note Text: Attestation signed by Yael Myers DO at 08/28/2024 7:16 AM Attending Physician Attestation Note: Munoz findings confirmed. I saw the patient in coordination with the resident physician. I personally interviewed and examined the patient. I discussed the patient with the resident physician. I reviewed the resident physician's note. I was present for munoz portions of and personally supervised any/all procedures. I personally saw the patient and performed a substantive portion of the visit including all aspects of the medical decision making. I agree with the resident physician's findings and medical decision making unless otherwise documented. Signature: Yael Myers DO Date: 08/28/2024 Time: 7:16 AM ED Provider Note Patient Name: Gayle Thompson : 1990 SERVICE DATE: 08/17/24 History Patient presents with: Functional Transfers: Pt transferred from [place] for ortho consult Patient is a 34-year-old female who presents to the emergency department today for concern for right ankle pain. Patient has a history of several ankle surgeries, including a recent ankle fusion yesterday by Dr. Storey here. She states she initially had some pain yesterday, but about 1400 today she had sudden onset of worsening pain in her right ankle, and states as well as intractable even with her home oxycodone. She called EMS and was given ketamine by squad in transit to [place], given Dilaudid and Toradol at [place], without pain relief. Transferred here for orthopedics evaluation. She denies any other symptoms at this time, denies any numbness, tingling of the right leg, denies any trauma since surgery yesterday. PAST MEDICAL HISTORY Diagnosis Date Acute right ankle pain Allergies Asthma as a kid Delayed emergence from general anesthesia Generalized anxiety disorder Hammer toe Migraines Palpitations Plantar fasciitis PONV (postoperative nausea and vomiting) PAST SURGICAL HISTORY Procedure Laterality Date ANKLE SURGERY HX Right 07/27/2021 APPLICATION UNIPLANE EXTERNAL FIXATION SYSTEM Right 07/18/2021 CLTX FX W8 BRG ARTCLR PRTN DSTL TIB W/SKEL TRACJ Right 07/18/2021 CORRECTION HAMMERTOE Right 2010, 2013 2017 EXTRACTION ERUPTED TOOTH 2016 wisdom teeth PAST SURGICAL HISTORY OF Right 10/23/2023 1. Removal internal fixation, right tibia PROCEDURE Bilateral 2010 pins in big toes PT ED OBSTETRICS AND GYNECOLOGY 08/2023 ENDOMETRIAL ABLATION SALPINGECTOMY COMPLETE/PARTIAL UNI/BI SPX 2020 FAMILY HISTORY Problem Relation Age of Onset other (Circulation problems) Mother other (High Blood Pressure) Mother other (fibromyalgia) Mother Hypertension Mother Cancer Mother cervical cancer Allergies Mother Bee venom, seasonal Depression Mother Anxiety disorder Mother Migraines Mother Thyroid Mother ADD/ADHD Father Migraines Sister Anxiety disorder Sister Depression Sister Asthma Sister Obesity Sister Thyroid Sister other (Gallbladder) Sister Asthma Brother Alzheimer's Disease Brother Diabetes Brother Cancer Maternal Grandmother Arthritis Maternal Grandmother COPD Maternal Grandmother other (ibs) Maternal Grandfather Obesity Paternal Grandmother other (colitis) Paternal Grandmother other (GERD) Daughter ADD/ADHD Son Allergies Son several other (gerd) Son Colon Cancer Other Social History Tobacco Use Smoking status: Never Smokeless tobacco: Never Vaping Use Vaping status: Never Used Substance and Sexual Activity Alcohol use: Yes Comment: occ.< once monthly Drug use: Never Sexual activity: Yes Partners: Male ALLERGIES No Known Allergies Review of Systems Constitutional: Negative for chills, diaphoresis and fever. HENT: Negative for rhinorrhea and sore throat. Eyes: Negative for photophobia, pain and visual disturbance. Respiratory: Negative for cough, shortness of breath and wheezing. Cardiovascular: Negative for chest pain and palpitations. Gastrointestinal: Negative for abdominal pain, diarrhea, nausea and vomiting. Endocrine: Negative for polydipsia and polyuria. Genitourinary: Negative for dysuria, frequency, hematuria and urgency. Musculoskeletal: Positive for arthralgias and myalgias. Negative for back pain and neck pain. Skin: Negative for rash and wound. Neurological: Negative for dizziness, syncope, weakness, light-headedness and headaches. Psychiatric/Behavioral : Negative for self-injury and suicidal ideas. Physical Exam Vitals [08/17/242105] BP Pulse Temp Temp src Resp SpO2 Weight Height 119/74 80 36.9 ?C (98.5 ?F) Oral 16 98 % 108.9 kg (240 lb (more content not included)... [facility] ED PROV NOTE HNO ID: [id number] Author: ELIOT GUTIERREZ MD Service: Emergency Medicine Author Type: Physician Type: ED Provider Notes Filed: 08/17/2024 18:56 Note Text: ED Provider Note Patient Name: Gayle Thompson : 1990 SERVICE DATE: 08/17/24 History Patient presents with: Ankle Pain Gayle Thompson is a 34 year old female with history of right ankle arthrodesis yesterday who presents with Ankle Pain. Patient took prescription medication prior to arrival. - Symptoms began 1 days prior to arrival. - Severity: severe - Timing: constant - Quality: sore - Ankle Pain is exacerbated by movement. - Ankle Pain is not exacerbated by elevation- Symptoms are associated with surgery yesterday. - Symptoms are not associated with chills and fever. - Improved by nothing. - Not improved by Percocet Patient had arthrodesis on her right ankle she had multiple surgeries on her right ankle this was done yesterday [facility] She had prescription pain medication and took 1 Percocet at 2:00 this morning and then 1 every 4 hours thereafter without relief pain is severe she called ambulance and was transported to the hospital. No falls or injuries.. PAST MEDICAL HISTORY Diagnosis Date Acute right ankle pain Allergies Asthma as a kid Delayed emergence from general anesthesia Generalized anxiety disorder Hammer toe Migraines Palpitations Plantar fasciitis PONV (postoperative nausea and vomiting) PAST SURGICAL HISTORY Procedure Laterality Date ANKLE SURGERY HX Right 07/27/2021 APPLICATION UNIPLANE EXTERNAL FIXATION SYSTEM Right 07/18/2021 CLTX FX W8 BRG ARTCLR PRTN DSTL TIB W/SKEL TRACJ Right 07/18/2021 CORRECTION HAMMERTOE Right 2010, 2013 2018 EXTRACTION ERUPTED TOOTH 2016 wisdom teeth PAST SURGICAL HISTORY OF Right 10/23/2023 1. Removal internal fixation, right tibia PROCEDURE Bilateral 2010 pins in big toes PT ED OBSTETRICS AND GYNECOLOGY 08/2023 ENDOMETRIAL ABLATION SALPINGECTOMY COMPLETE/PARTIAL UNI/BI SPX 2020 FAMILY HISTORY Problem Relation Age of Onset other (Circulation problems) Mother other (High Blood Pressure) Mother other (fibromyalgia) Mother Hypertension Mother Cancer Mother cervical cancer Allergies Mother Bee venom, seasonal Depression Mother Anxiety disorder Mother Migraines Mother Thyroid Mother ADD/ADHD Father Migraines Sister Anxiety disorder Sister Depression Sister Asthma Sister Obesity Sister Thyroid Sister other (Gallbladder) Sister Asthma Brother Alzheimer's Disease Brother Diabetes Brother Cancer Maternal Grandmother Arthritis Maternal Grandmother COPD Maternal Grandmother other (ibs) Maternal Grandfather Obesity Paternal Grandmother other (colitis) Paternal Grandmother other (GERD) Daughter ADD/ADHD Son Allergies Son several other (gerd) Son Colon Cancer Other Social History Tobacco Use Smoking status: Never Smokeless tobacco: Never Vaping Use Vaping status: Never Used Substance and Sexual Activity Alcohol use: Yes Comment: occ.< once monthly Drug use: Never Sexual activity: Yes Partners: Male ALLERGIES No Known Allergies Review of Systems Constitutional: Negative for chills and fever. Respiratory: Negative for cough and shortness of breath. Gastrointestinal: Negative for nausea and vomiting. Skin: Negative for rash and wound. Allergic/Immunologic: Negative for environmental allergies, food allergies and immunocompromised state. Psychiatric/Behavioral : Positive for confusion. The patient is not nervous/anxious. After ems ketamine dose Physical Exam Vitals [08/17/24 1721] BP Pulse Temp Temp src Resp SpO2 Weight Height 138/89 (!) 91 37.3 ?C (99.2 ?F) Temporal 18 (!) 93 % 109.3 kg (241 lb) -- Physical Exam Vitals and nursing note reviewed. Constitutional: General: She is not in acute distress. Appearance: Normal appearance. She is not ill-appearing, toxic-appearing or diaphoretic. HENT: Head: Normocephalic and atraumatic. Pulmonary: Effort: Pulmonary effort is normal. Breath sounds: Normal breath sounds. Musculoskeletal: General: No swelling or tenderness. Comments: Well-padded short leg posterior splint in place toes are well-perfused intact sensation no swelling in the digits no significant pain with movement toes. Proximal calf is soft and nontender. Skin: General: Skin is warm and dry. Capillary Refill: Capillary refill takes less than 2 seconds. Findings: No rash. Neurological: General: No focal deficit present. Mental Status: She is alert and oriented to person, place, and time. Psychiatric: Mood and Affect: Mood normal. Behavior: Behavior normal. Thought Content: Thought content normal. Judgment: Judgment normal. Diagnostic Testing ED Labs Ordered and Reviewed - No data to display Procedures ED Course / Clinical Impression Clinical Impressions as of 08/17/24 1758 Right ankl (more content not included)... [facility] XR ANKLE 3V AP/LAT/OBL RTon 08-17-2024 XR ANKLE 3V AP/LAT/OBL RT * * *Final Report* * * DATE OF EXAM: Aug 17 2024 8:30PM LDX 5297 - XR ANKLE 3V AP/LAT/OBL RT / PROCEDURE REASON: Post-operative / post-procedure assessment, asymptomatic * * * * Physician Interpretation * * * * EXAMINATION: XR ANKLE 3V AP/LAT/OBL RT CLINICAL HISTORY: Post-operative / post-procedure assessment, asymptomatic Technique: XR ANKLE 3V AP/LAT/OBL RT -- RIGHT with 3 views on 3 images Comparison: 08/16/2024 RESULT: There is an overlying splint which partially obscures visualization of bony detail. Again seen are extensive postsurgical changes of tibiotalar arthrodesis. Orthopedic hardware is intact. Ghost tracks from prior orthopedic hardware is noted. There is solid bony fusion across the corresponding disc space. Mild overlying soft tissue swelling and soft tissue gas compatible with recent postoperative status. Single threaded screw transfixes the great toe metatarsal bone and is partially seen. IMPRESSION: Postsurgical changes. No acute findings Plumbing Designer: PSCB Transcribe Date/Time: Aug 17 2024 10:05P Dictated by : FABY MCKEON MD This examination was interpreted and the report reviewed and electronically signed by: FABY MCKEON MD on Aug 17 2024 10:10PM EST [id number] [facility] ANES POSTPROC EVALon 024 ANES POSTPROC EVAL HNO ID: [id number] Author: PRASHANT HAYNES MD Service: Anesthesiology Author Type: Physician Type: Anesthesia Postprocedure Evaluation Filed: 08/16/2024 14:24 Note Text: POST ANESTHESIA EVALUATION NOTE : 1990 Procedure Summary Date: 08/16/24 Room / Location: [facility] OR / [facility] OR Anesthesia Start: 0755 Anesthesia Stop: 1111 Procedures: ARTHRODESIS ANKLE (Right: Ankle) ARTHRODESIS TIBIOFIBULAR JOINT PROXIMAL OR DISTAL (Right: Ankle) Diagnosis: Post-traumatic arthritis of right ankle Osteoarthritis of right ankle or foot (Post-traumatic arthritis of right ankle [M19.171]) (Osteoarthritis of right ankle or foot [M19.071]) Surgeons: Amarjit Storey DPM Responsible Provider: Prashant Haynes MD Anesthesia Type: general ASA Status: 2 Anesthesia Type: general Airway Type: ETT Last Vitals Vitals Value Taken Time BP 124/61 08/16/24 1345 Temp 36 ?C (96.8 ?F) 08/16/24 1330 HR SpO2 95 08/16/24 1347 Resp 18 08/16/24 1346 SpO2 93 % 08/16/24 1347 Vitals shown include unfiled device data. Post Anesthesia Patient Status Anticipated Disposition: phase 2 then home. Neurological Status: aware and responsive. Pulmonary Status: breathing comfortably on room air Airway Control: returned to baseline unsupported. Cardiovascular Status: stable. Pain Management: clinically adequate Postoperative Hydration: acceptable. Intraoperative Events: no significant anesthesia events Post Operative Nausea/Vomiting Status: no significant post operative nausea or vomiting Recommendation: continue current plan of care. Anesthesia Observations No Documentation SIGNATURE: Prashant Haynes MD PATIENT NAME: Gayle Thompson DATE: August 16, 2024 TIME: 2:24 PM CSN: [id number] [facility] ANES PRE-OPon 08-16-2024 ANES PRE-OP HNO ID: [id number] Author: PRASHANT HAYNES MD Service: Anesthesiology Author Type: Physician Type: Anesthesia Preprocedure Evaluation Filed: 08/16/2024 07:23 Note Text: ANESTHESIOLOGY DAY OF SURGERY NOTE : 1990 Procedure Information Date/Time: 08/16/24 0800 Procedures: ARTHRODESIS ANKLE (Right: Ankle) - Popliteal block ARTHRODESIS TIBIOFIBULAR JOINT PROXIMAL OR DISTAL (Right: Ankle) Location: [place] OR 02 / [place] OR Surgeons: Amarjit Storey DPM Estimated body mass index is 36.64 kg/m? as calculated from the following: Height as of 08/08/24: 172.7 cm (5' 8). Weight as of 08/08/24: 109.3 kg (241 lb). Most recent hematocrit and potassium results: Hematocrit 44.1 02/19/2024 Potassium 4.0 03/01/2024 Relevant Problems CARDIO (+) Migraine with aura (+) PSVT (paroxysmal supraventricular tachycardia) (HCC) (+) Sinus bradycardia GI (+) Gastroesophageal reflux disease without esophagitis NEURO-PSYCH (+) Migraine with aura PULMONARY (+) Mild intermittent asthma without complication Other (+) Post-traumatic arthritis of right ankle Last dose trulicity 07/25/24 I - PHYSICAL EVALUATION AIRWAY Patient intubated: No. Tracheostomy tube not present Mallampati: I. TM distance: >3 FB. Neck ROM: full ROM without neurological symptoms. Mouth opening: adequate. Short neck: no. Thick neck: no Feliz present: no Lip Bite Test: I Microretrognathia/Micr onagthia/Recessed Chin: No DENTAL Dental findings: teeth intact. Additional exam findings: no II - ANESTHESIA PLAN ASA Score: 2 Anesthetic Plan: general Airway type: ETT The patient is not a current smoker. NPO Status: adequate Beta Adán Monitoring Plan Monitoring plan: standard ASA. Post Procedure Analgesic Plan Postoperative analgesic plan: parenteral or oral opioids and peripheral nerve block. Informed Consent Anesthetic risks, benefits, alternatives, personnel and consent discussed: yes. Patient / Responsible Constitution Party agrees to proceed: yes Patient / Surrogate agrees to blood products: Yes Significant changes in the patient condition since the History and Physical, not otherwise documented in primary service progress note: no. Potential Anesthesia issues that may suggest increased risk of complications or contraindication to planned procedure: none. Vitals Value Taken Time BP 125/94 08/16/24 0640 Pulse 88 08/16/24 0710 Resp 22 08/16/24 0710 Temp 36.3 ?C (97.3 ?F) 08/16/24 0632 SpO2 98 % 08/16/24 0640 Vitals shown include unfiled device data. No current facility-administered medications on file as of 08/16/2024. Outpatient Medications as of 08/16/2024 Medication Sig albuterol HFA (PROVENTIL HFA, VENTOLIN HFA) 90 mcg/actuation inhaler Inhale 2 Puffs as instructed every 6 hours as needed. atenolol (TENORMIN) 25 mg tablet Take 0.5 tablets by mouth once daily as needed. For HR > 100 I have interviewed and examined the patient. I have reviewed the medical record and/or the pre-anesthesia evaluation, pertinent labs, and test results. This contains updated information obtained within 48 hours of Surgery/Procedure. SIGNATURE: Prashant Haynes MD PATIENT NAME: Gayle Thompson DATE: August 16, 2024 TIME: 7:10 AM CSN: [id number] [facility] BRIEF OP NOTon 08-16-2024 BRIEF OP NOT HNO ID: [id number] Author: RAFI PICKETT DO Service: Orthopaedic Surgery Author Type: Resident Type: Brief Op Note Filed: 08/16/2024 11:14 Note Text: BRIEF OPERATIVE / PROCEDURE NOTE LOG ID: [id number] SURGERY/PROCEDURE DATE: 08/16/2024 INCISION/PROCEDURE START TIME: 8:21 AM INCISION CLOSE/PROCEDURE END TIME: 10:57 AM SURGEON(S)/PROCEDURALI ST(S) AND DEBURRING MACHINE OPERATOR(S): Surgeons and Role: * Amarjit Storey DPM - Primary * Rafi Pickett DO - Resident - Observing No Additional Staff SURGERY/PROCEDURE(S): Right ankle arthodesis ANESTHESIA: General FINDINGS: See op note FLUIDS: Per anesthesia ESTIMATED BLOOD LOSS: 25 mls ANTIBIOTICS: Ancef SPECIMENS: None COMPLICATIONS: None PRE-OP/PRE-PROCEDURE DIAGNOSIS: Right ankle arthritis POST-OP/POST-PROCEDURE DIAGNOSIS: Same Post-Operative Plan: -Pain control -Weight bearing: NWB RLE -DVT ppx: SCDs, ambulation -Imaging: Obtained in OR -Dressinx4's, ABD's bulky conklin splint to RLE -Dispo: Home from PACU if pain controlled Rafi Pickett DO Orthopaedic Surgery 08/16/2024 11:12 AM [facility] BRIEF OP NOT HNO ID: [id number] Author: AMARJIT STOREY DPM Service: Podiatry Author Type: Physician Type: Brief Op Note Filed: 08/16/2024 10:17 Note Text: BRIEF OPERATIVE / PROCEDURE NOTE LOG ID: [id number] Surgery/Procedure Date: 08/16/2024 Incision/Procedure Start Time: 8:21 AM Incision Close/Procedure End Time: Surgeon(s)/Procedurali st(s) and Drain Layer(s): Surgeons and Role: * Amarjit Storey DPM - Primary * Rafi Pickett DO - Resident - Observing No Additional Staff Procedure(s): Ankle Arthrodesis, Right Distal Tibiofibular Joint Arthrodesis, Right Anesthesia: General/Popliteal nerve block Findings: Per dictation Estimated Blood Loss: <25 mls Specimens: None Complications: None Pre-Op/Pre-Procedure Diagnosis: Ankle Arthritis,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 advised to take at [facility]. Also, at [facility] an attempt at IANDD was done with purulent drainage noted but no culture was done. On admission, vital signs were stable, no leukocytosis, lactate was normal. Preliminary blood culture was negative to date. Staph aureus nasal swab was positive for MRSA. Preliminary wound culture was positive for Staph aureus. CT neck soft tissue showed small superficial abscess deep to the right upper lip with surrounding cellulitis. CT of the facial bone 2 days later showed stable abscess over the right mandible/lower lip. She was started on intravenous vancomycin and Zosyn which was later de-escalated to intravenous vancomycin only. Bactroban nasal ointment was started. Pain control was with PRN motrin later changed to PRN toradol with better pain control. Antibiotic was managed by the infectious disease physician. She was seen by the general surgeon after 3 days of IV antibiotics and she recommends that the area is progressively healing and no need for IANDD at this time. She was continued on intravenous vancomycin and discharged on 10 days of Bactrim per ID recommendation.. She was advised to continue Bactrim as directed and follow-up with her family doctor after discharge and will need to have renal function test and potassium level rechecked during follow-up.. Encouraged to increase fluid intake while on Bactrim. Avoid daily NSAIDs and if needing to use NSAID can use only sparingly while on Bactrim to decrease risk of development of YONATAN. I informed her that it is most likely that her wound culture results is due to MRSA given that her nasal swab was positive for MRSA however will call and notify her if the final results shows otherwise and antibiotic changes is needed. Excuse duty letter written per patients request. OPERATIONS/PROCEDURE DURING THIS HOSPITALIZATION: * No surgery found * CONSULTS DURING HOSPITALIZATION: Treatment Team: Consulting: Carlos Salazar MD PATIENT CONDITION AT DISCHARGE: Stable DISCHARGE DISPOSITION: Home with Self Group Home with Self Care Discharge Physical Exam: VITAL SIGNS: BP 115/64 Pulse 84 Temp 36.6 ?C (97.8 ?F) (Oral) Resp 20 Ht 172.7 cm (5' 8) Wt 105 kg (231 lb 7.7 oz) LMP (LMP Unknown) SpO2 99% BMI 35.20 kg/m? GENERAL: Alert, no distress, cooperative, Obese HEAD/SINUSES no sinus tenderness. Area of tenderness over the right cheek have resolved. Nearly resolved erythema over the right side of the face. Healed scabs without drainage noted on the jaw area.: OROPHARYNX: No evidence of oropharyngeal exudates, tonsillitis LUNGS: Clear to auscultation bilaterally. No wheezes no rhonchi. CARDIAC: Normal S1 and S2; no rubs, murmurs, or gallops EXTREMITIES: No edema no erythema. WOUND/SURGICAL SITE CARE: None SUPPLIES OR EQUIPMENT: None DIET: Resume pre-hospital diet ACTIVITY AND EXERCISE: Resume pre-hospital activity FOLLOW UP APPOINTMENTS: Future Appointmen (more content not included)... [facility] CONSULT PROGon 02-19-2024 CONSULT PROG HNO ID: [id number] Author: NANCY LOONEY MD Service: General Surgery Author Type: Physician Drain Layer Type: Consult Progress Note Filed: 02/19/2024 12:55 Note Text: Attestation signed by Nancy Looney MD at 02/19/2024 12:55 PM Attending Note I have personally performed a face to face assessment of the patient and have reviewed the EZEKIEL note. I performed a substantive portion of the visit including all aspects of the following. My munoz findings include: Cellulitis much improved. Agree with plan. No f/u needed. Other additions or changes: None Signature: Nancy Looney MD Date: 02/19/2024 Time: 12:54 PM SURGICAL SERVICES POSTOP CONSULT PROGRESS NOTE SERVICE DATE: 02/19/2024 SERVICE TIME: 1240 CONSULTING SERVICE: General Surgery POD # 2 Subjective INTERVAL HISTORY OF PRESENT ILLNESS: Patient feeling much better. Pain and swelling improved significantly. No fevers or chills. No new complaints. Current Facility-Administered Medications Medication Dose Route Frequency NaCl 0.9% iv flush bag 20 mL INTRAVENOUS PRN vancomycin dosing and monitoring per pharmacy OTHER As Directed topiramate 50 mg tab(s) (TOPAMAX) 50 mg ORAL AT BEDTIME ondansetron orally disintegrating 4 mg tab(s) (ZOFRAN ODT) 4 mg ORAL q 6 H PRN Or ondansetron (PF) 4 mg injection (ZOFRAN) 4 mg INTRAVENOUS q 6 H PRN diphenhydrAMINE 25 mg injection (BENADRYL) 25 mg INTRAVENOUS q 6 H PRN mupirocin 2 % 0.5 g nasal ointment (BACTROBAN) 0.5 g NASAL BID keTORolac 15 mg injection (Toradol) 15 mg INTRAVENOUS q 6 H PRN vancomycin 1.75 g in D5W 500 mL (VANCOCIN) 1.75 g INTRAVENOUS q 12 HR Objective PHYSICAL EXAM: BP 115/64 Pulse 84 Temp (Src) 97.8 (Oral) Resp 20 Ht 5' 8 (1.73m) Wt 231 lb 7.7 oz (105.0kg) SpO2 99% BMI 35.21 kg/(m2). O2 Therapy: Room Air Physical Exam Performed Face/Lip: There is no redness or swelling small amount of induration remains ,small scab areas but no palpable abscess or drainage Intake/Output Summary (Last 24 hours) at 02/19/2024 1244 Last data filed at 02/18/2024 2100 Gross per 24 hour Intake 240 ml Output -- Net 240 ml DATA: Diagnostic tests reviewed for today's visit: Most recent labs and imaging results. Impression/Recommendat ions Patient Active Hospital Problem List: Cellulitis (02/15/2024) Facial cellulitis (02/17/2024) POSTOP PLANS: No further surgical intervention/drainage - clinically much improved ready for discharge Cont. Per infectious disease awaiting susceptibilities Will sign off call if needed Does not require F/U with general surgery SIGNATURE: Linda Cheney PA-C PATIENT NAME: Gayle Thompson DATE: February 19, 2024 TIME: 12:44 PM ETX#[id number] [facility] CONSULT PROG HNO ID: [id number] Author: [address] RPh Service: Pharmacy Author Type: Pharmacist Type: Consult Progress Note Filed: 02/19/2024 11:55 Note Text: PHARMACY VANCOMYCIN DOSING NOTE Patient Name: Gayle Thompson Admission Date: 02/15/2024 Date of Consult: 02/19/2024 Time of Consult: 11:25 AM Indication: Skin/Soft tissue infection Goal Range: 10-20 mcg/mL RECOMMENDATIONS/PLAN: Pharmacy consulted for vancomycin dosing for Gayle Thompson, a 33 year old female. 1. Patient is currently ordered Vancomycin 1.75 g IV q12h. Today is day 5 of therapy. 2. The most recent vancomycin level was 14.6 mcg/mL drawn at 0956 on 02/19/24. This is a 11 hour level on the 5th day of therapy. 3. The present dose of vancomycin is the recommended dosage for this patient at this time. Continue therapy as prescribed. 4. The next vancomycin level will be ordered for 02/26/24 unless clinically indicated sooner. (Pharmacy will order) We will follow patient renal function, vancomycin levels and doses with you during the course of therapy. Additional recommendations will appear in follow up notes. If you have any questions, please contact pharmacy at [phone]. Age: [age] year old Allergies: ALLERGIES No Known Allergies Last 3 Encounter Wt Readings: Date: Wt: 02/15/2024 105 kg (231 lb 7.7 oz) 02/14/2024 104.3 kg (230 lb) 12/26/2023 109.3 kg (241 lb) Last 1 Encounter Ht Readings: Date: Ht: 02/15/2024 172.7 cm (5' 8) CrCl: 113.5 mL/min Temp (24hrs), Av.7 ?C (98 ?F), Min:36.6 ?C (97.8 ?F), Max:36.9 ?C (98.4 ?F) - Current Temp: 36.6 ?C (97.8 ?F) Labs BUN (mg/dL) Date Value 02/19/2024 11 02/18/2024 12 02/17/2024 12 Creatinine (mg/dL) Date Value 02/19/2024 0.91 02/18/2024 0.91 02/17/2024 0.93 WBC (k/uL) Date Value 02/19/2024 6.12 02/18/2024 6.77 02/17/2024 8.10 Vancomycin Levels: Vancomycin (ug/mL) Date/Time Value 02/19/2024 0956 14.6 02/17/2024 0949 9.1 (L) Aris Tinoco Preceptor Addendum: This case has been reviewed and discussed with the director pharmacy services. I agree with the assessment/plan described by the resident. Changes and additions to the details in the note are indicated by italics and . [address] [facility] NURSING PROGon 02-19-2024 NURSING PROG HNO ID: [id number] Author: RE BISHOP RN Service: Nursing Author Type: Registered Nurse Type: Nursing Progress Note Filed: 02/19/2024 17:57 Note Text: Other: 0930 Pt. reporting that the swelling has improved in face with no complain of difficulty chewing or swallowing. Pt. updated on plan of care. [address] Llanes to inform that left arm IV site discontinued with tenderness at site with ice pack applied and elevated upon a pillow. [address] Llanes related the above. 1505 Dr. Llanes aware the above with aware that pt. reporting had multiple IV's and the last one was ultrasound guided 1518 Pt. updated and reporting will wait to IANDD comes to see me. Pt. decline to have another restarted at this time. 1629 DR. Llanes aware that IANDD saw pt. with pt. reporting that the IANDD going to switch to oral bactrim DS for going home. 175 Went over discharge instructions with pt. 1758 Pt. left via wheelchair and personnel items. Normal [facility] Vancomycin [place] SerPl-mCncon 02-19-2024 Vancomycin random [Mass/Vol] 14.6 ug/mL Normal 10.0-20.0 [facility] Comment on above: Order Comment: Ryanne negrete Type: BLOOD SPECIMEN Ordering Facility: [facility] Address: [address] [place] [address] Result Comment: Refe rence ranges and high/low indicator flags are provided as general guidelines only. The treating physician must determine appropriate target levels/dosing based on the specific clinical situation. Performed By: #### 4 #### [facility] CLIA [id number] [address] STATES OF [facility] CBC panel Auto (Bld)on 02-17 Erythrocyte distribution width (RBC) [Ratio] 13.2 % Normal 11.5-15.0 [facility] Comment on above: Order Comment: Ryanne negrete Type: BLOOD SPECIMEN Ordering Facility: [facility] Address: [address] [place] [address] Performed By: #### 2 4323-8, 1987-12 #### [facility] CLIA [id number] [address] [place] Hematocrit (Bld) [Volume fraction] 41.5 % Normal 36.0-46.0 [facility] Comment on above: Order Comment: Speci men Type: BLOOD SPECIMEN Ordering Facility: [facility] Address: [address] [place] [address] Performed By: #### 2 4323-03, 1987-12 #### [facility] CLIA [id number] [address] OF [facility] Hemoglobin (Bld) [Mass/Vol] 14.0 g/dL Normal 11.5-15.5 [facility] Comment on above: Order Comment: Speci men Type: BLOOD SPECIMEN Ordering Facility: [facility] Address: [address] [place] [address] Performed By: #### 2 4323-03, 1987-12 #### [facility] CLIA [id number] [address] MCH (RBC) [Entitic mass] 29.6 pg Normal 26.0-34.0 [facility] Comment on above: Order Comment: Speci men Type: BLOOD SPECIMEN Ordering Facility: [facility] Address: [address] [place] [address] Performed By: #### 2 4323-03, 1987-12 #### [facility] CLIA [id number] [address] MCHC (RBC) [Mass/Vol] 33.7 g/dL Normal 30.5-36.0 [facility] Comment on above: Order Comment: Speci men Type: BLOOD SPECIMEN Ordering Facility: [facility] Address: [address] [place] [address] Performed By: #### 2 4323-03, 1987-12 #### [facility] CLIA [id number] [address] MCV (RBC) [Entitic vol] 87.7 fL Normal 80.0-100.0 [facility] Comment on above: Order Comment: Speci men Type: BLOOD SPECIMEN Ordering Facility: [facility] Address: [address] [place] [address] Performed By: #### 2 4323-03, 1987-12 #### [facility] CLIA [id number] [address] [place] [address] [place] Nucleated RBC (Bld) [#/Vol] 10*3/uL Normal <0.01 [facility] Comment on above: Order Comment: Speci men Type: BLOOD SPECIMEN Ordering Facility: [facility] Address: [address] [place] [address] Performed By: #### 2 4323-03, 1987-12 #### [facility] CLIA [id number] [address] [place] [address] [place] Platelet mean volume (Bld) [Entitic vol] 10.6 fL Normal 9.0-12.7 [facility] Comment on above: Order Comment: Speci men Type: BLOOD SPECIMEN Ordering Facility: [facility] Address: [address] [place] [address] Performed By: #### 2 4323-03, 1987-12 #### [facility] CLIA [id number] [address] [place] [address] [place] Platelets (Bld) [#/Vol] 178 10*3/uL Normal 150-400 [facility] Comment on above: Order Comment: Speci men Type: BLOOD SPECIMEN Ordering Facility: [facility] Address: [address] [place] [address] Performed By: #### 2 4323-03, 1987-12 #### [facility] CLIA [id number] [address] [place] [address] [place] RBC (Bld) [#/Vol] 4.73 10*6/uL Normal 3.90-5.20 [facility] Comment on above: Order Comment: Speci men Type: BLOOD SPECIMEN Ordering Facility: [facility] Address: [address] [place] [address] Performed By: #### 2 4323-03, 1987-12 #### [facility] CLIA [id number] [address] OF [place] WBC (Bld) [#/Vol] 6.77 10*3/uL Normal 3.70-11.00 [facility] Comment on above: Order Comment: Speci men Type: BLOOD SPECIMEN Ordering Facility: [facility] Address: [address] [place] [address] Performed By: #### 2 4323-8, 1987-12 #### [facility] CLIA [id number] [address] [place] CONSULT PROGomaximo 02-18-2024 CONSULT G HNO ID: [id number] Author: MILEY ARAUJO RPh Service: Pharmacy Author Type: Pharmacist Type: Consult Progress Note Filed: 02/18/2024 10:18 Note Text: PHARMACY VANCOMYCIN DOSING NOTE Patient Name: Gayle Thompson Admission Date: 02/15/2024 Date of Consult: 02/18/2024 Time of Consult: 10:08 AM Indication: Skin/Soft tissue infection, IANDD on 02/17/24 Goal Range: 10-20 mcg/mL RECOMMENDATIONS/PLAN: Pharmacy consulted for vancomycin dosing for Gayle Thompson, a 33 year old female. 1. Patient is currently ordered Vancomycin 1.75 g IV q12h. Today is day 4 of therapy. 2. The most recent vancomycin level was drawn and addressed on 02/17/24. 3. The present dose of vancomycin is the recommended dosage for this patient at this time. Continue therapy as prescribed. 4. The next vancomycin level has been ordered for 02/19/24 (Completed) We will follow patient renal function, vancomycin levels and doses with you during the course of therapy. Additional recommendations will appear in follow up notes. If you have any questions, please contact pharmacy at [phone]. Age: [age] year old Allergies: ALLERGIES No Known Allergies Last 3 Encounter Wt Readings: Date: Wt: 02/15/2024 105 kg (231 lb 7.7 oz) 02/14/2024 104.3 kg (230 lb) 12/26/2023 109.3 kg (241 lb) Last 1 Encounter Ht Readings: Date: Ht: 02/15/2024 172.7 cm (5' 8) CrCl: 113 mL/min Temp (24hrs), Av.8 ?C (98.3 ?F), Min:36.6 ?C (97.9 ?F), Max:37.1 ?C (98.7 ?F) - Current Temp: 36.6 ?C (97.9 ?F) Labs BUN (mg/dL) Date Value 02/18/2024 12 02/17/2024 12 02/16/2024 10 Creatinine (mg/dL) Date Value 02/18/2024 0.91 02/17/2024 0.93 02/16/2024 0.93 WBC (k/uL) Date Value 02/18/2024 6.77 02/17/2024 8.10 02/16/2024 8.32 Vancomycin Levels: Vancomycin (ug/mL) Date/Time Value 02/17/2024 0949 9.1 (L) Stephanie Kohli, Negative Assembler Preceptor Addendum: This case has been reviewed and discussed with the director pharmacy services. I agree with the assessment/plan described by the resident. Changes and additions to the details in the note are indicated by italics and . Miley Araujo [facility] CONSULT PROG HNO ID: [id number] Author: NANCY LOONYE MD Service: General Surgery Author Type: Physician Type: Consult Progress Note Filed: 02/18/2024 08:56 Note Text: SURGICAL SERVICES POSTOP CONSULT PROGRESS NOTE SERVICE DATE: 02/18/2024 SERVICE TIME: 8:53 AM CONSULTING SERVICE: Surgery POD # 1 s/p IANDD of right lip abscess Subjective INTERVAL HISTORY OF PRESENT ILLNESS: Still feels a knot. Current Facility-Administered Medications Medication Dose Route Frequency NaCl 0.9% iv flush bag 20 mL INTRAVENOUS PRN vancomycin dosing and monitoring per pharmacy OTHER As Directed topiramate 50 mg tab(s) (TOPAMAX) 50 mg ORAL AT BEDTIME ondansetron orally disintegrating 4 mg tab(s) (ZOFRAN ODT) 4 mg ORAL q 6 H PRN Or ondansetron (PF) 4 mg injection (ZOFRAN) 4 mg INTRAVENOUS q 6 H PRN diphenhydrAMINE 25 mg injection (BENADRYL) 25 mg INTRAVENOUS q 6 H PRN mupirocin 2 % 0.5 g nasal ointment (BACTROBAN) 0.5 g NASAL BID keTORolac 15 mg injection (Toradol) 15 mg INTRAVENOUS q 6 H PRN vancomycin 1.75 g in D5W 500 mL (VANCOCIN) 1.75 g INTRAVENOUS q 12 HR iv contrast (radiology procedure) INTRAVENOUS DIRECTED PRN Objective PHYSICAL EXAM: BP 115/80 Pulse 80 Temp (Src) 97.9 (Temporal) Resp 14 Ht 5' 8 (1.73m) Wt 231 lb 7.7 oz (105.0kg) SpO2 96% BMI 35.21 kg/(m2). O2 Therapy: Room Air Physical Exam Performed Area drained yesterday seems to be softer Intake/Output Summary (Last 24 hours) at 02/18/2024 0853 Last data filed at 02/17/2024 1044 Gross per 24 hour Intake 240 ml Output -- Net 240 ml DATA: Diagnostic tests reviewed for today's visit: Most recent labs and imaging results. CT reviewed: IMPRESSION: Stable abscess over the right mandible/lower lip. Impression/Recommendat ions Patient Active Hospital Problem List: Cellulitis (02/15/2024) Facial cellulitis (02/17/2024) POSTOP PLANS: - I feel the area is clinically improved. Would continue to monitor clinically with IV abx. Will follow. SIGNATURE: Nancy Looney MD PATIENT NAME: Gayle Thompson DATE: February 18, 2024 TIME: 8:53 AM ETX#[id number] Normal [facility] Comprehensive metabolic 2000 panelon 02-18-2024 Albumin [Mass/Vol] 4.3 g/dL Normal 3.9-4.9 [facility] Comment on above: Order Comment: Ryanne negrete Type: BLOOD SPECIMEN Ordering Facility: [facility] Address: [address] [place] [address] Performed By: #### 2 43238, 1987-12 #### [facility] CLIA [id number] [address] [place] [address] [place] ALP [Catalytic activity/Vol] 74 U/L Normal 34-123 [facility] Comment on above: Order Comment: Ryanne negrete Type: BLOOD SPECIMEN Ordering Facility: [facility] Address: [address] [place] [address] Performed By: #### 2 43238, 1987-12 #### [facility] CLIA [id number] [address] [place] [address] [place] ALT [Catalytic activity/Vol] 18 U/L Normal 7-38 [facility] Comment on above: Order Comment: Ryanne negrete Type: BLOOD SPECIMEN Ordering Facility: [facility] Address: [address] [place] [address] Performed By: #### 2 4323-03, 1987-12 #### [facility] CLIA [id number] [address] [place] [address] [place] Anion gap [Moles/Vol] 10 mmol/L Normal 8-15 [facility] Comment on above: Order Comment: Speci men Type: BLOOD SPECIMEN Ordering Facility: [facility] Address: [address] [place] [address] Performed By: #### 2 4323-03, 1987-12 #### [facility] CLIA [id number] [address] [place] [address] [place] AST [Catalytic activity/Vol] 15 U/L Normal 13-35 [facility] Comment on above: Order Comment: Speci men Type: BLOOD SPECIMEN Ordering Facility: [facility] Address: [address] [place] [address] Performed By: #### 2 4323-03, 1987-12 #### [facility] CLIA [id number] [address] [place] [address] [place] Bilirubin [Mass/Vol] 0.4 mg/dL Normal 0.2-1.3 [facility] Comment on above: Order Comment: Speci men Type: BLOOD SPECIMEN Ordering Facility: [facility] Address: [address] [place] [address] Performed By: #### 2 4323-03, 1987-12 #### [facility] CLIA [id number] [address] [place] Calcium [Mass/Vol] 9.2 mg/dL Normal 8.5-10.2 [facility] Comment on above: Order Comment: Speci men Type: BLOOD SPECIMEN Ordering Facility: [facility] Address: [address] [place] [address] Performed By: #### 2 4323-03, 1987-12 #### [facility] CLIA [id number] [address] [place] [address] [place] Chloride [Moles/Vol] 104 mmol/L Normal 98-107 [facility] Comment on above: Order Comment: Speci men Type: BLOOD SPECIMEN Ordering Facility: [facility] Address: [address] [place] [address] Performed By: #### 2 43210-26, 1987-12 #### [facility] CLIA [id number] [address] [place] [address] [place] CO2 [Moles/Vol] 25 mmol/L Normal 22-30 [facility] Comment on above: Order Comment: Ryanne negrete Type: BLOOD SPECIMEN Ordering Facility: [facility] Address: [address] [place] [address] Performed By: #### 2 4323-03, 1987-12 #### [facility] CLIA [id number] [address] [place] [address] [place] Creatinine [Mass/Vol] 0.91 mg/dL Normal 0.58-0.96 [facility] Comment on above: Order Comment: Ryanne negrete Type: BLOOD SPECIMEN Ordering Facility: [facility] Address: [address] [place] [address] Performed By: #### 2 4323-03, 1987-12 #### [facility] CLIA [id number] [address] Creatinine and Glomerular filtration rate.predicted panel (S/P/Bld) 87 mL/min/1.73m??? Normal >=60 [facility] Comment on above: Order Comment: Ryanne negrete Type: BLOOD SPECIMEN Ordering Facility: [facility] Address: [address] [place] [address] Result Comment: Malika mated Glomerular Filtration Rate (eGFR) is calculated using the 2020 CKD-EPI creatinine equation. This equation utilizes serum creatinine, sex, and age as parameters. The creatinine assay has traceable calibration to isotope dilution-mass spectrometry. Refer to KDIGO guidelines for clinical interpretation. In patients with unstable renal function, e.g. those with acute kidney injury, the eGFR may not accurately reflect actual GFR. Performed By: #### 2 43210-26, 1987-12 #### [facility] CLIA [id number] [address] [place] Glucose [Mass/Vol] 108 mg/dL High 74-99 [facility] Comment on above: Order Comment: Ryanne negrete Type: BLOOD SPECIMEN Ordering Facility: [facility] Address: [address] [place] [place] [address] Result Comment: The [place] [employer] (ADA) provides guidance for cutoff values for fasting glucose and random glucose. The ADA defines fasting as no caloric intake for at least 8 hours. Fasting plasma glucose results between 100 to 125 mg/dL indicate increased risk for diabetes (prediabetes). Fasting plasma glucose results greater than or equal to 126 mg/dL meet the criteria for diagnosis of diabetes. In the absence of unequivocal hyperglycemia, results should be confirmed by repeat testing. In a patient with classic symptoms of hyperglycemia or hyperglycemic crisis, random plasma glucose results greater than or equal to 200 mg/dL meet the criteria for diagnosis of diabetes. Reference: Standards of Medical Care in Diabetes 2016, [place] [employer]. Diabetes Care. 2016.39(Suppl 1). Performed By: #### 2 4323-03, 1987-12 #### [facility] CLIA [id number] [address] [place] [address] [place] Potassium [Moles/Vol] 4.3 mmol/L Normal 3.7-5.1 [facility] Comment on above: Order Comment: Speci men Type: BLOOD SPECIMEN Ordering Facility: [facility] Address: [address] [place] [address] Performed By: #### 2 4323-03, 1987-12 #### [facility] CLIA [id number] [address] [place] [address] [place] Protein [Mass/Vol] 6.5 g/dL Normal 6.3-8.0 [facility] Comment on above: Order Comment: Speci men Type: BLOOD SPECIMEN Ordering Facility: [facility] Address: [address] [address] Performed By: #### 2 4323-03, 1987-12 #### [facility] CLIA [id number] [address] [place] [address] [place] Sodium [Moles/Vol] 139 mmol/L Normal 136-144 [facility] Comment on above: Order Comment: Speci men Type: BLOOD SPECIMEN Ordering Facility: [facility] Address: [address] [address] Performed By: #### 2 4323-03, 1987-12 #### [facility] CLIA [id number] [address] [place] Urea nitrogen [Mass/Vol] 12 mg/dL Normal 7-21 [facility] Comment on above: Order Comment: Speci caden Type: BLOOD SPECIMEN Ordering Facility: [facility] Address: [address] [place] [address] Performed By: #### 2 4323-8, 1987- #### [facility] CLIA [id number] [address] [place] HCG Preg Ur Qlon 02-18-2024 HCG ( test) Ql (U) Negative Normal Negative [facility] Comment on above: Order Comment: Speci men Type: URINE SPECIMEN Ordering Facility: [facility] Address: [address] [place] [address] Result Comment: This test is intended to aid in the early detection of . Very dilute urine samples, as indicated by a low specific gravity, may not contain assistance representative levels of hCG. This test detects intact hCG only. This test does not reliably detect hCG degradation products, including free-beta subunit and beta-core fragment. Therefore, this test may show reduced reactivity in urine after 8 weeks gestation. A number of conditions other than , including trophoblastic disease and certain non-trophoblastic neoplasms cause elevated levels of hCG. As with any assay employing mouse antibodies, the possibility exists for interference by human anti-mouse antibodies (HAMA) in the specimen. The test provides a presumptive diagnosis for . Performed By: #### 2 106-3 #### [facility] CLIA [id number] [address] [place] Bacteria Wnd Culton 02-17-20 24 Bacteria identified Cx Nom (Wound) ORGANISM ID: 1 Rare Methicillin-RESISTANT Staphylococcus aureus (MRSA) GRAM STAIN: Rare Gram positive cocci Rare Polymorphonuclear leukocytes ORGANISM ID: 1 (METHICILLIN RESISTANT STAPHYLOCOCCUS AUREUS) -- ANTIBIOTIC INTERPRETATION RANDI STATUS REFERENCE RANGE -- Oxacillin R >=4 F Susceptible <=2 , Resistant >2 Oxacillin resistant Staphylococci are resistant to all beta-lactam antibiotics (except new cephalosporins with anti-MRSA activity i.e. ceftaroline) Erythromycin R >=8 F Susceptible <=0.5 , Intermediate >.5 , Resistant >4 Clindamycin S 0.25 F Susceptible <=0.5 , Intermediate >.5 , Resistant >2 Testing for inducible clindamycin resistance was performed. Trimeth sulfameth S <=10 F Susceptible <=40 , Resistant >40 Vancomycin S 1 F Susceptible <=2 , Intermediate >2 , Resistant >8 Daptomycin S 0.5 F Susceptible <=1 , Nonsusceptible >1 Linezolid S 2 F Susceptible <=4 , Resistant >4 Rifampin S <=0.5 F Susceptible <=1 , Intermediate >1 , Resistant >2 Rifampin should not be used alone for antimicrobial therapy. Levofloxacin R 4 F Susceptible <=1 , Intermediate >1 , Resistant >2 Tetracycline S <=1 F Susceptible <=4 , Intermediate >4 , Resistant >8 Doxycycline S <=0.5 F Susceptible <=4 , Intermediate >4 , Resistant >8 Abnormal [facility] Comment on above: Performed By: #### 6 462-6 #### [facility] CLIA [id number] [address] [place] [address] [place] [address] [place] CBC panel Auto (Bld)on 02-16 Erythrocyte distribution width (RBC) [Ratio] 13.3 % Normal 11.5-15.0 [facility] Comment on above: Order Comment: Speci men Type: BLOOD SPECIMEN Ordering Facility: [facility] Address: [address] [place] [address] Performed By: #### 5 8410-2 #### [facility] CLIA [id number] [address] Hematocrit (Bld) [Volume fraction] 39.9 % Normal 36.0-46.0 [facility] Comment on above: Order Comment: Speci men Type: BLOOD SPECIMEN Ordering Facility: [facility] Address: [address] [place] [address] Performed By: #### 5 8410-2 #### [facility] CLIA [id number] [address] Hemoglobin (Bld) [Mass/Vol] 13.5 g/dL Normal 11.5-15.5 [facility] Comment on above: Order Comment: Speci men Type: BLOOD SPECIMEN Ordering Facility: [facility] Address: [address] [place] [address] Performed By: #### 5 8410-2 #### [facility] CLIA [id number] [address] MCH (RBC) [Entitic mass] 29.4 pg Normal 26.0-34.0 [facility] Comment on above: Order Comment: Speci men Type: BLOOD SPECIMEN Ordering Facility: [facility] Address: [address] [place] [address] Performed By: #### 5 8410-2 #### [facility] CLIA [id number] [address] MCHC (RBC) [Mass/Vol] 33.8 g/dL Normal 30.5-36.0 [facility] Comment on above: Order Comment: Speci men Type: BLOOD SPECIMEN Ordering Facility: [facility] Address: [address] [place] [address] Performed By: #### 5 8410-2 #### [facility] CLIA [id number] [address] MCV (RBC) [Entitic vol] 86.9 fL Normal 80.0-100.0 [facility] Comment on above: Order Comment: Speci men Type: BLOOD SPECIMEN Ordering Facility: [facility] Address: [address] [place] [address] Performed By: #### 5 8410-2 #### [facility] CLIA [id number] [address] [place] [address] [place] Nucleated RBC (Bld) [#/Vol] 10*3/uL Normal <0.01 [facility] Comment on above: Order Comment: Speci men Type: BLOOD SPECIMEN Ordering Facility: [facility] Address: [address] [place] [address] Performed By: #### 5 8410-2 #### [facility] CLIA [id number] [address] [place] [address] [place] Platelet mean volume (Bld) [Entitic vol] 11.0 fL Normal 9.0-12.7 [facility] Comment on above: Order Comment: Speci men Type: BLOOD SPECIMEN Ordering Facility: [facility] Address: [address] [place] [address] Performed By: #### 5 8410-2 #### [facility] CLIA [id number] [address] [place] Platelets (Bld) [#/Vol] 174 10*3/uL Normal 150-400 [facility] Comment on above: Order Comment: Speci men Type: BLOOD SPECIMEN Ordering Facility: [facility] Address: [address] [place] [address] Performed By: #### 5 8410-2 #### [facility] CLIA [id number] [address] [place] RBC (Bld) [#/Vol] 4.59 10*6/uL Normal 3.90-5.20 [facility] Comment on above: Order Comment: Speci men Type: BLOOD SPECIMEN Ordering Facility: [facility] Address: [address] [place] [address] Performed By: #### 5 8410-2 #### [facility] CLIA [id number] [address] [place] WBC (Bld) [#/Vol] 8.10 10*3/uL Normal 3.70-11.00 [facility] Comment on above: Order Comment: Speci men Type: BLOOD SPECIMEN Ordering Facility: [facility] Address: [address] [place] [address] Performed By: #### 5 8410-2 #### [facility] CLIA [id number] [address] [place] [address] [facility] CONSULT PROGon 02-17-2024 CONSULT PROG HNO ID: [id number] Author: NITO MCCANN RPh Service: Pharmacy Author Type: ? Type: Consult Progress Note Filed: 02/17/2024 11:22 Note Text: Attestation signed by Nito Mccann RPh at 02/17/2024 11:22 AM Preceptor Addendum: This case has been reviewed and discussed with the director pharmacy services. I agree with the assessment/plan described by the resident. Changes and additions to the details in the note are indicated by italics and . Nito Mccann RPh PHARMACY VANCOMYCIN DOSING NOTE Patient Name: Gayle Thompson Admission Date: 02/15/2024 Date of Consult: 02/17/2024 Time of Consult: 11:00 AM Indication: Skin/Soft tissue infection Goal Range: 10-20 mcg/mL RECOMMENDATIONS/PLAN: Pharmacy consulted for vancomycin dosing for Gayle Thompson, a 33 year old female. 1. Patient is currently ordered Vancomycin 1.5 g IV q12h. Today is day 3 of therapy. 2. The most recent vancomycin level was 9.1 mcg/mL drawn at 09:49 on 02/17/24. This is a 12 hour level on the 3 day of therapy. 3. Will increase vancomycin to 1.75 g with a dosing interval of q12h. 4. The next vancomycin level will be ordered for 02/19/24 unless clinically indicated sooner. (Pharmacy will order) We will follow patient renal function, vancomycin levels and doses with you during the course of therapy. Additional recommendations will appear in follow up notes. If you have any questions, please contact pharmacy at [phone]. Age: [age] year old Allergies: ALLERGIES No Known Allergies Last 3 Encounter Wt Readings: Date: Wt: 02/15/2024 105 kg (231 lb 7.7 oz) 02/14/2024 104.3 kg (230 lb) 12/26/2023 109.3 kg (241 lb) Last 1 Encounter Ht Readings: Date: Ht: 02/15/2024 172.7 cm (5' 8) CrCl: 111.1 mL/min Temp (24hrs), Av.8 ?C (98.2 ?F), Min:36.3 ?C (97.4 ?F), Max:37.1 ?C (98.8 ?F) - Current Temp: 36.7 ?C (98.1 ?F) Labs BUN (mg/dL) Date Value 02/17/2024 12 02/16/2024 10 02/15/2024 14 Creatinine (mg/dL) Date Value 02/17/2024 0.93 02/16/2024 0.93 02/15/2024 0.90 WBC (k/uL) Date Value 02/17/2024 8.10 02/16/2024 8.32 02/15/2024 8.54 Vancomycin Levels: Vancomycin (ug/mL) Date/Time Value 02/17/2024 0949 9.1 (L[facility] W IVCON[facility] CT FACIAL BONE W IVCON * * *Final Report * * * DATE OF EXAM: Feb 17 2024 4:22PM [facility] [place] FACIAL BONE W IVCON / PROCEDURE REASON: Maxillary/facial abscess * * * * Physician Interpretation * * * * EXAMINATION: CT FACIAL BONE W IVCON HISTORY: Maxillary/facial abscess - - - - Maxillary/facial abscess, please check for nec. fasc. and deep abscess - [id number] - - jaw pain - - TECHNIQUE: CT facial bone with intravenous contrast. Contrast: IV administration of 100 ml of Omnipaque 350 CT Dose-Length Product (DLP): 228 mGy*cm CT Dose Reduction Employed: Automated exposure control (AEC) COMPARISON: Soft tissue neck CT 02/15/2024 RESULT: Soft tissue reticulated stranding over the right anterior mandible and lower lip. Patchy hypodensity with peripheral enhancement in this region suggesting abscess which is stable from the recently performed head CT. Paranasal sinuses are clear. No fluid levels. Mastoid air cells are clear. Well aerated. Osseous skull base structures are intact. Orbital contents are within normal limits. Limited evaluation of the intracranial contents is without acute finding. Incidentally imaged soft tissues of the neck or normal. Day Treatment Clinician/Art Therapist (topogram) images: No additional findings. IMPRESSION: Stable abscess over the right mandible/lower lip. Plumbing Designer: GER Transcribe Date/Time: Feb 17 2024 4:38P Dictated by : FABIAN WOOD DO This examination was interpreted and the report reviewed and electronically signed by: FABIAN WOOD DO on Feb 17 2024 4:43PM EST [id number] Normal [facility] Comprehensive metabolic 2000 panelon 02-17-2024 Albumin [Mass/Vol] 4.0 g/dL Normal 3.9-4.9 [facility] Comment on above: Order Comment: Ryanne negrete Type: BLOOD SPECIMEN Ordering Facility: [facility] Address: [address] [place] [address] Performed By: #### 2 4323-8 #### [facility] CLIA [id number] [address] STATES OF [facility] ALP [Catalytic activity/Vol] 71 U/L Normal 34-123 [facility] Comment on above: Order Comment: Ryanne negrete Type: BLOOD SPECIMEN Ordering Facility: [facility] Address: [address] [place] [address] Performed By: #### 2 4323-8 #### [facility] CLIA [id number] [address] OF [place] ALT [Catalytic activity/Vol] 19 U/L Normal 7-38 [facility] Comment on above: Order Comment: Speci men Type: BLOOD SPECIMEN Ordering Facility: [facility] Address: [address] [place] [address] Performed By: #### 2 4323-8 #### [facility] CLIA [id number] [address] [place] [address] [place] Anion gap [Moles/Vol] 10 mmol/L Normal 8-15 [facility] Comment on above: Order Comment: Speci men Type: BLOOD SPECIMEN Ordering Facility: [facility] Address: [address] [place] [address] Performed By: #### 2 4323-8 #### [facility] CLIA [id number] [address] [place] [address] [place] AST [Catalytic activity/Vol] 15 U/L Normal 13-35 [facility] Comment on above: Order Comment: Speci men Type: BLOOD SPECIMEN Ordering Facility: [facility] Address: [address] [place] [address] Performed By: #### 2 4323-8 #### [facility] CLIA [id number] [address] [place] [address] [place] Bilirubin [Mass/Vol] 0.4 mg/dL Normal 0.2-1.3 [facility] Comment on above: Order Comment: Speci men Type: BLOOD SPECIMEN Ordering Facility: [facility] Address: [address] [place] [address] Performed By: #### 2 4323-8 #### [facility] CLIA [id number] [address] STATES [place] Calcium [Mass/Vol] 8.9 mg/dL Normal 8.5-10.2 [facility] Comment on above: Order Comment: Speci men Type: BLOOD SPECIMEN Ordering Facility: [facility] Address: [address] [place] [address] Performed By: #### 2 4323-8 #### [facility] CLIA [id number] [address] [place] [address] [place] Chloride [Moles/Vol] 106 mmol/L Normal 98-107 [facility] Comment on above: Order Comment: Speci men Type: BLOOD SPECIMEN Ordering Facility: [facility] Address: [address] [place] [address] Performed By: #### 2 4323-8 #### [facility] CLIA [id number] [address] [place] [address] [place] CO2 [Moles/Vol] 22 mmol/L Normal 22-30 [facility] Comment on above: Order Comment: Ryanne negrete Type: BLOOD SPECIMEN Ordering Facility: [facility] Address: [address] [place] [address] Performed By: #### 2 4323-8 #### [facility] CLIA [id number] [address] STATES [place] [facility] Creatinine [Mass/Vol] 0.93 mg/dL Normal 0.58-0.96 [facility] Comment on above: Order Comment: Pki men Type: BLOOD SPECIMEN Ordering Facility: [facility] Address: [address] [place] [address] Performed By: #### 2 4323-8 #### [facility] CLIA [id number] [address] Creatinine and Glomerular filtration rate.predicted panel (S/P/Bld) 84 mL/min/1.73m??? Normal >=60 [facility] Comment on above: Order Comment: Ryanne negrete Type: BLOOD SPECIMEN Ordering Facility: [facility] Address: [address] [place] [address] Result Comment: Malika mated Glomerular Filtration Rate (eGFR) is calculated using the 2020 CKD-EPI creatinine equation. This equation utilizes serum creatinine, sex, and age as parameters. The creatinine assay has traceable calibration to isotope dilution-mass spectrometry. Refer to KDIGO guidelines for clinical interpretation. In patients with unstable renal function, e.g. those with acute kidney injury, the eGFR may not accurately reflect actual GFR. Performed By: #### 2 4323-8 #### [facility] CLIA [id number] [address] [place] [facility] Glucose [Mass/Vol] 112 mg/dL High 74-99 [facility] Comment on above: Order Comment: Ryanne negrete Type: BLOOD SPECIMEN Ordering Facility: [facility] Address: [address] [place] [address] Result Comment: The [place] [employer] (ADA) provides guidance for cutoff values for fasting glucose and random glucose. The ADA defines fasting as no caloric intake for at least 8 hours. Fasting plasma glucose results between 100 to 125 mg/dL indicate increased risk for diabetes (prediabetes). Fasting plasma glucose results greater than or equal to 126 mg/dL meet the criteria for diagnosis of diabetes. In the absence of unequivocal hyperglycemia, results should be confirmed by repeat testing. In a patient with classic symptoms of hyperglycemia or hyperglycemic crisis, random plasma glucose results greater than or equal to 200 mg/dL meet the criteria for diagnosis of diabetes. Reference: Standards of Medical Care in Diabetes 2016, [place] [employer]. Diabetes Care. 2016.39(Suppl 1). Performed By: #### 2 4323-8 #### [facility] CLIA [id number] [address] [place] [address] [place] Potassium [Moles/Vol] 4.2 mmol/L Normal 3.7-5.1 [facility] Comment on above: Order Comment: Ryanne negrete Type: BLOOD SPECIMEN Ordering Facility: [facility] Address: [address] [place] [address] Performed By: #### 2 4323-8 #### [facility] CLIA [id number] [address] [place] [address] [place] Protein [Mass/Vol] 6.9 g/dL Normal 6.3-8.0 [facility] Comment on above: Order Comment: Ryanne negrete Type: BLOOD SPECIMEN Ordering Facility: [facility] Address: [address] [place] [address] Performed By: #### 2 4323-8 #### [facility] CLIA [id number] [address] [place] [address] [place] Sodium [Moles/Vol] 138 mmol/L Normal 136-144 [facility] Comment on above: Order Comment: Ryanne negrete Type: BLOOD SPECIMEN Ordering Facility: [facility] Address: [address] [place] [address] Performed By: #### 2 4323-8 #### [facility] CLIA [id number] [address] [place] [address] [place] Urea nitrogen [Mass/Vol] 12 mg/dL Normal 7-21 [facility] Comment on above: Order Comment: Ryanne negrete Type: BLOOD SPECIMEN Ordering Facility: [facility] Address: [address] [place] [address] Performed By: #### 2 4323-8 #### [facility] CLIA [id number] [address] [place] [address] [place] NURSING PROGon 02-17-2024 NURSING PROG HNO ID: [id number] Author: LUISA MENJIVAR, ELIZABETH Service: Nursing Author Type: Registered Nurse Type: Nursing Progress Note Filed: 02/17/2024 19:18 Note Text: Other: 02/17/241914 unable to leave vm with ID call center re ct results 1916 page out to ID re ct results Normal [facility] Vancomycin [place] SerPl-mCncon 02-17-2024 Vancomycin random [Mass/Vol] 9.1 ug/mL Low 10.0-20.0 [facility] Comment on above: Order Comment: Ryanne negrete Type: BLOOD SPECIMEN Ordering Facility: [facility] Address: [address] [place] [address] Result Comment: Refe rence ranges and high/low indicator flags are provided as general guidelines only. The treating physician must determine appropriate target levels/dosing based on the specific clinical situation. Performed By: #### 4 091-5 #### [facility] CLIA [id number] [address] [place] [address] [facility] [place] CASE MGT INIT ASSESon 2023 CASE MGT INIT ASSES HNO ID: [id number] Author: ELSA CARDENAS, ELIZABETH Service: ? Author Type: Registered Nurse Type: Care Mgt Initial Assessment Filed: 02/16/2024 16:08 Note Text: CARE MANAGEMENT: ASSESSMENT AND DISCHARGE PLAN SERVICE DATE: February 16, 2024 SERVICE TIME: 4:06 PM telephone instrument supervisor spoke with patient at bedside to complete Care Management Assessment. Introduction made and role of Care Management explained. PCP: Noelle Blanc APRN.DIE DRAWING CHECKER - patient confirmed Primary Contact: Extended Emergency Contact Information Primary Emergency Contact: KWAME Barrios Mobile Relation: Significant other Admission Status: Inpatient Insurance Provider: [employer] Discharge Planning requested by: Per Department Practice Potential Transition Plans Home Advance Directives Current Advance Directive: None Refining Equipment Operator Attempted to Assist with AD Completion: Yes Action: Education Provided Current Living Arrangements and Support Lives with: Children, Friends (Boyfriend and 2 minor children) Type of Residence: Private Residence (House) (House: one story no basement and 8-9 entry steps) Does the patient have to climb stairs at home?: Yes;stairs outside the home Support: Family members How do you manage to accomplish the following: Independent: Ambulation;Transportat ion to appointments/community ;Bathe/Shower;Dress;Me als/Meal Prep;Going to the bathroom;Medication Management Current Services/Equipment Current Post-Acute Service(s): None Discharge Planning Patient Goal(s): Be able to go home [place] Explained: [place] Given: No (Discharge Needs: To be Determined) Are you interested in bedside delivery of your medications? No Preference: [facility] [place] [facility] [place] Discharge Planning Participant(s): Patient Caregiver Assessment: Caregiver is ready, willing and able to meet the patient's needs as recommended by the inter-professional team: No Caregiver needed Transport at Discharge: Transportation Arrangements: Car Destination: Home Needs Prior to Discharge: Needs Prior to Discharge: To Be Determined Post-Acute Discharge Plan: From home. Lives with boyfriend and 2- minor children. Independent. Employed. Drives.No Active Services. No DME. Discharge Plan: Home Discharge Transportation; Self CM dept to follow. SIGNATURE: Elsa Cardenas RN PATIENT NAME: Gayle Thompson DATE: February 16, 2024 TIME: 4:06 PM CONTACT #: [phone] Normal [facility] CBC panel Auto (Bld)on 02-15 Erythrocyte distribution width (RBC) [Ratio] 13.4 % Normal 11.5-15.0 [facility] Comment on above: Order Comment: Speci men Type: BLOOD SPECIMEN Ordering Facility: [facility] Address: [address] [place] [address] Performed By: #### 2 4323-8, 1987-12 #### [facility] CLIA [id number] [address] [place] [address] [place] Hematocrit (Bld) [Volume fraction] 39.9 % Normal 36.0-46.0 [facility] Comment on above: Order Comment: Speci men Type: BLOOD SPECIMEN Ordering Facility: [facility] Address: [address] [place] [address] Performed By: #### 2 4323-03, 1987-12 #### [facility] CLIA [id number] [address] OF [facility] Hemoglobin (Bld) [Mass/Vol] 13.5 g/dL Normal 11.5-15.5 [facility] Comment on above: Order Comment: Speci men Type: BLOOD SPECIMEN Ordering Facility: [facility] Address: [address] [place] [address] Performed By: #### 2 4323-03, 1987-12 #### [facility] CLIA [id number] [address] STATES OF [place] MCH (RBC) [Entitic mass] 29.6 pg Normal 26.0-34.0 [facility] Comment on above: Order Comment: Speci men Type: BLOOD SPECIMEN Ordering Facility: [facility] Address: [address] [place] [address] Performed By: #### 2 4323-03, 1987-12 #### [facility] CLIA [id number] [address] [place] MCHC (RBC) [Mass/Vol] 33.8 g/dL Normal 30.5-36.0 [facility] Comment on above: Order Comment: Speci men Type: BLOOD SPECIMEN Ordering Facility: [facility] Address: [address] [place] [address] Performed By: #### 2 4323-03, 1987-12 #### [facility] CLIA [id number] [address] OF [place] MCV (RBC) [Entitic vol] 87.5 fL Normal 80.0-100.0 [facility] Comment on above: Order Comment: Speci men Type: BLOOD SPECIMEN Ordering Facility: [facility] Address: [address] [place] [address] Performed By: #### 2 4323-03, 1987-12 #### [facility] CLIA [id number] [address] [place] [address] [place] Nucleated RBC (Bld) [#/Vol] 10*3/uL Normal <0.01 [facility] Comment on above: Order Comment: Speci men Type: BLOOD SPECIMEN Ordering Facility: [facility] Address: [address] [place] [address] Performed By: #### 2 43210-26, 1987-12 #### [facility] CLIA [id number] [address] [place] [address] [place] Platelet mean volume (Bld) [Entitic vol] 11.2 fL Normal 9.0-12.7 [facility] Comment on above: Order Comment: Speci men Type: BLOOD SPECIMEN Ordering Facility: [facility] Address: [address] [place] [address] Performed By: #### 2 4323-03, 1987-12 #### [facility] CLIA [id number] [address] [place] Platelets (Bld) [#/Vol] 169 10*3/uL Normal 150-400 [facility] Comment on above: Order Comment: Speci men Type: BLOOD SPECIMEN Ordering Facility: [facility] Address: [address] [place] [address] Performed By: #### 2 4323-03, 1987-12 #### [facility] CLIA [id number] [address] [place] [address] [place] RBC (Bld) [#/Vol] 4.56 10*6/uL Normal 3.90-5.20 [facility] Comment on above: Order Comment: Speci men Type: BLOOD SPECIMEN Ordering Facility: [facility] Address: [address] [place] [address] Performed By: #### 2 4323-03, 1987-12 #### [facility] CLIA [id number] [address] [place] [address] [place] WBC (Bld) [#/Vol] 8.32 10*3/uL Normal 3.70-11.00 [facility] Comment on above: Order Comment: Speci men Type: BLOOD SPECIMEN Ordering Facility: [facility] Address: [address] [place] [address] [place] [id number] Performed By: #### 2 4323-8, 1987-12 #### [facility] CLIA [id number] [address] [place], [place] [id number] [place] CONSULTon 02-16-2024 CONSULT HNO ID: [id number] Author: LUISA GARCIA APRN.DIE DRAWING CHECKER Service: Infectious Disease Author Type: Nurse Practitioner Type: Consults Filed: 02/16/2024 14:28 Note Text: CONSULT: INFECTIOUS DISEASE SERVICE SERVICE DATE: 02/16/2024 SERVICE TIME: 2:23 PM REASON FOR CONSULT: Facial cellulitis REQUESTING PHYSICIAN: gold PRIMARY CARE PHYSICIAN: Noelle Blanc APRN.DIE DRAWING CHECKER Subjective Ms. Thompson is a 33 YF with hx of migraine started with swelling to her lower face due to cellulitis and was treated with bactrim as OP with no response and worsening of symptoms. In [place] ED swelling was aspirated with a small needle and was subsequently discharged home. After no improvement and worsening pain she presented to [facility] ER and subsequently admitted for IV abx. She denies any fever, chills, cold sweats or rigors. Has CERVANTES likely from her migraines. No photophobia. Some difficulty with chewing. In ER CT showed Small superficial abscess deep to the right upper lip. No radiopaque foreign bodies. No subcutaneous emphysema. Cellulitis surrounding this abscess. No involvement of the floor of mouth or tongue. No lymphadenopathy. Received one dose of Vanc and Zosyn ID service consulted for abx mgmt WBC: 8.54 LA: 0.6 PAST MEDICAL HISTORY Diagnosis Date Acute right ankle pain Allergies Asthma as a kid Delayed emergence from general anesthesia Generalized anxiety disorder Hammer toe Migraines Palpitations Plantar fasciitis PONV (postoperative nausea and vomiting) PAST SURGICAL HISTORY Procedure Laterality Date ANKLE SURGERY HX Right 07/27/2021 APPLICATION UNIPLANE EXTERNAL FIXATION SYSTEM Right 07/18/2021 CLTX FX W8 BRG ARTCLR PRTN DSTL TIB W/SKEL TRACJ Right 07/18/2021 CORRECTION HAMMERTOE Right 2010, 2013 EXTRACTION ERUPTED TOOTH 2016 wisdom teeth PAST SURGICAL HISTORY OF Right 10/23/2023 1. Removal internal fixation, right tibia PROCEDURE Bilateral pins in big toes 2010 PT ED OBSTETRICS AND GYNECOLOGY 08/2023 ENDOMETRIAL ABLATION SALPINGECTOMY COMPLETE/PARTIAL UNI/BI SPX 2020 FAMILY HISTORY Problem Relation Age of Onset other (Circulation problems) Mother other (High Blood Pressure) Mother other (fibromyalgia) Mother Hypertension Mother Cancer Mother cervical cancer Allergies Mother Bee venom, seasonal Depression Mother Anxiety disorder Mother Migraines Mother Thyroid Mother ADD/ADHD Father Migraines Sister Anxiety disorder Sister Depression Sister Asthma Sister Obesity Sister Thyroid Sister other (Gallbladder) Sister Asthma Brother Alzheimer's Disease Brother Diabetes Brother Cancer Maternal Grandmother Arthritis Maternal Grandmother COPD Maternal Grandmother other (ibs) Maternal Grandfather Obesity Paternal Grandmother other (colitis) Paternal Grandmother other (GERD) Daughter ADD/ADHD Son Allergies Son several other (gerd) Son Colon Cancer Other Social History Tobacco Use Smoking status: Never Smokeless tobacco: Never Vaping Use Vaping Use: Never used Substance Use Topics Alcohol use: Yes Comment: occ. Drug use: Never perflutren lipid microspheres 1.3 mL in NaCl (PF) 0.9% 10 mL injection (DEFINITY), , INTRAVENOUS, DIRECTED PRN, Noelle Blanc, CLINICAL INFORMATICS SPEC.DIE DRAWING CHECKER sodium chloride 0.9 % (flush) 10 mL (BD POSIFLUSH), 10 mL, INTRAVENOUS, DIRECTED PRN, Noelle Blanc, CLINICAL INFORMATICS SPEC.DIE DRAWING CHECKER mupirocin (BACTROBAN) 2 % ointment, Apply a thin layer topically to affected area 3 times per day for 10 days, Disp: , Rfl: , 02/15/2024 sulfamethoxazole-trime thoprim (BACTRIM DS) 800-160 mg per tablet, Take 1 tablet by mouth twice a day for 7 days. Take with food and a glassful of water., Disp: , Rfl: , 02/15/2024 topiramate (TOPAMAX) 25 mg tablet, Take 1 tablet by mouth daily at bedtime for 7 days, THEN 2 tablets daily at bedtime. Patient should start on January 30, 2024., Disp: 67 tablet, Rfl: 0, 02/14/2024 meloxicam (MOBIC) 15 mg tablet, Take 1 tablet by mouth once daily., Disp: 30 tablet, Rfl: 3, 02/14/2024 atenolol (TENORMIN) 25 mg tablet, Take 0.5 tablets by mouth once daily as needed. For HR > 100, Disp: 30 tablet, Rfl: 0, 02/14/2024 albuterol HFA (PROVENTIL HFA, VENTOLIN HFA) 90 mcg/actuation inhaler, Inhale 2 Puffs as instructed every 4 hours as needed., Disp: 1 Inhaler, Rfl: 0, 02/14/2024 Current Facility-Administered Medications Medication Dose Route Frequency NaCl 0.9% iv flush bag 20 mL INTRAVENOUS PRN vancomycin 1.5 g in NaCl 0.9% 250 mL (VANCOCIN) 0.015 g/kg/dose INTRAVENOUS q 12 HR vancomycin dosing and monitoring per pharmacy OTHER As Directed topiramate 50 mg tab(s) (TOPAMAX) 50 mg ORAL AT BEDTIME ondansetron orally disintegrating 4 mg tab(s) (ZOFRAN ODT) 4 mg ORAL q 6 H PRN Or ondansetron (PF) 4 mg injection (ZOFRAN) 4 mg INTRAVENOUS q 6 H PRN ibuprofen 600 mg tab(s) (MOTRIN) 600 mg ORAL q 6 H PRN diphenhydrAMINE 25 mg injection (BENADRYL) 25 mg INTRAVENOUS q 6 H PRN mupirocin 2 % (more content not included)... [facility] CONSULT PROGon 02-16-2024 CONSULT PROG HNO ID: [id number] Author: JAIRO TONY RPh Service: Pharmacy Author Type: Pharmacist Type: Consult Progress Note Filed: 02/16/2024 10:38 Note Text: PHARMACY VANCOMYCIN DOSING NOTE Patient Name: Gayel Thompson Admission Date: 02/15/2024 Date of Consult: 02/16/2024 Time of Consult: 8:26 AM Indication: Skin/Soft tissue infection Goal Range: 10-20 mcg/mL RECOMMENDATIONS/PLAN: Pharmacy consulted for vancomycin dosing for Gayle Thompson, a 33 year old female. 1. Patient is currently ordered Vancomycin 1.5 g IV q12h. Today is day 2 of therapy. 2. No vancomycin level has been drawn for this dosing regimen. 3. The present dose of vancomycin is the recommended dosage for this patient at this time. Continue therapy as prescribed. 4. The next vancomycin level will be ordered for 02/17/24 unless clinically indicated sooner. (Pharmacy will order) We will follow patient renal function, vancomycin levels and doses with you during the course of therapy. Additional recommendations will appear in follow up notes. If you have any questions, please contact pharmacy at [phone]. Age: [age] year old Allergies: ALLERGIES No Known Allergies Last 3 Encounter Wt Readings: Date: Wt: 02/15/2024 105 kg (231 lb 7.7 oz) 02/14/2024 104.3 kg (230 lb) 12/26/2023 109.3 kg (241 lb) Last 1 Encounter Ht Readings: Date: Ht: 02/15/2024 172.7 cm (5' 8) CrCl: 111.1 mL/min Temp (24hrs), Av.8 ?C (98.2 ?F), Min:36.7 ?C (98 ?F), Max:37.1 ?C (98.8 ?F) - Current Temp: 36.7 ?C (98 ?F) Labs BUN (mg/dL) Date Value 02/16/2024 10 02/15/2024 14 02/14/2024 16 Creatinine (mg/dL) Date Value 02/16/2024 0.93 02/15/2024 0.90 02/14/2024 0.94 WBC (k/uL) Date Value 02/16/2024 8.32 02/15/2024 8.54 02/14/2024 10.46 Vancomycin Levels: No results found for: CHRISSIRWIN Aris Tinoco Preceptor Addendum: This case has been reviewed and discussed with the director pharmacy services. I agree with the assessment/plan described by the resident. Changes and additions to the details in the note are indicated by italics and . Jairo Tony, [facility] Normal [facility] Comprehensive metabolic 2000 panelon 02-16-2024 Albumin [Mass/Vol] 3.7 g/dL Low 3.9-4.9 [facility] Comment on above: Order Comment: Speci men Type: BLOOD SPECIMEN Ordering Facility: [facility] Address: [address] [place] [address] Performed By: #### 2 4323-8, 1987-12 #### [facility] CLIA [id number] [address] [place] [address] [place] ALP [Catalytic activity/Vol] 66 U/L Normal 34-123 [facility] Comment on above: Order Comment: Speci men Type: BLOOD SPECIMEN Ordering Facility: [facility] Address: [address] [place] [address] Performed By: #### 2 4323-03, 1987-12 #### [facility] CLIA [id number] [address] [place] [address] [place] ALT [Catalytic activity/Vol] 20 U/L Normal 7-38 [facility] Comment on above: Order Comment: Speci men Type: BLOOD SPECIMEN Ordering Facility: [facility] Address: [address] [place] [address] Performed By: #### 2 4323-03, 1987-12 #### [facility] CLIA [id number] [address] [place] [address] [place] [facility] Anion gap [Moles/Vol] 10 mmol/L Normal 8-15 [facility] Comment on above: Order Comment: Speci men Type: BLOOD SPECIMEN Ordering Facility: [facility] Address: [address] [place] [address] Performed By: #### 2 4323-03, 1987-12 #### [facility] CLIA [id number] [address] AST [Catalytic activity/Vol] 16 U/L Normal 13-35 [facility] Comment on above: Order Comment: Speci men Type: BLOOD SPECIMEN Ordering Facility: [facility] Address: [address] [place] [address] Performed By: #### 2 4323-03, 1987-12 #### [facility] CLIA [id number] [address] [place] [address] [place] Bilirubin [Mass/Vol] 0.5 mg/dL Normal 0.2-1.3 [facility] Comment on above: Order Comment: Speci men Type: BLOOD SPECIMEN Ordering Facility: [facility] Address: [address] [place] [address] Performed By: #### 2 4323-03, 1987-12 #### [facility] CLIA [id number] [address] [place] Calcium [Mass/Vol] 8.7 mg/dL Normal 8.5-10.2 [facility] Comment on above: Order Comment: Speci men Type: BLOOD SPECIMEN Ordering Facility: [facility] Address: [address] [place] [address] Performed By: #### 2 43210-26, 1987-12 #### [facility] CLIA [id number] [address] [place] [address] [place] Chloride [Moles/Vol] 106 mmol/L Normal 98-107 [facility] Comment on above: Order Comment: Speci men Type: BLOOD SPECIMEN Ordering Facility: [facility] Address: [address] [place] [address] Performed By: #### 2 43210-26, 1987-12 #### [facility] CLIA [id number] [address] [place] [address] [place] CO2 [Moles/Vol] 24 mmol/L Normal 22-30 [facility] Comment on above: Order Comment: Speci men Type: BLOOD SPECIMEN Ordering Facility: [facility] Address: [address] [place] [address] Performed By: #### 2 4328, 1987-12 #### [facility] CLIA [id number] [address] [place] [address] [place] Creatinine [Mass/Vol] 0.93 mg/dL Normal 0.58-0.96 [facility] Comment on above: Order Comment: Speci men Type: BLOOD SPECIMEN Ordering Facility: [facility] Address: [address] [place] [address] Performed By: #### 2 43210-26, 1987-12 #### [facility] CLIA [id number] [address] [place] Creatinine and Glomerular filtration rate.predicted panel (S/P/Bld) 84 mL/min/1.73m??? Normal >=60 [facility] Comment on above: Order Comment: Speci men Type: BLOOD SPECIMEN Ordering Facility: [facility] Address: [address] [place] [address] Result Comment: Malika mated Glomerular Filtration Rate (eGFR) is calculated using the 2020 CKD-EPI creatinine equation. This equation utilizes serum creatinine, sex, and age as parameters. The creatinine assay has traceable calibration to isotope dilution-mass spectrometry. Refer to KDIGO guidelines for clinical interpretation. In patients with unstable renal function, e.g. those with acute kidney injury, the eGFR may not accurately reflect actual GFR. Performed By: #### 2 4323-03, 1987-12 #### [facility] CLIA [id number] [address] [place] [address] [place] Glucose [Mass/Vol] 113 mg/dL High 74-99 [facility] Comment on above: Order Comment: Ryanne negrete Type: BLOOD SPECIMEN Ordering Facility: [facility] Address: [address] [place], [place] [id number] Result Comment: The [place] [employer] (ADA) provides guidance for cutoff values for fasting glucose and random glucose. The ADA defines fasting as no caloric intake for at least 8 hours. Fasting plasma glucose results between 100 to 125 mg/dL indicate increased risk for diabetes (prediabetes). Fasting plasma glucose results greater than or equal to 126 mg/dL meet the criteria for diagnosis of diabetes. In the absence of unequivocal hyperglycemia, results should be confirmed by repeat testing. In a patient with classic symptoms of hyperglycemia or hyperglycemic crisis, random plasma glucose results greater than or equal to 200 mg/dL meet the criteria for diagnosis of diabetes. Reference: Standards of Medical Care in Diabetes 2016, [place] [employer]. Diabetes Care. 2016.39(Suppl 1). Performed By: #### 2 4323-03, 1987-12 #### [facility] CLIA [id number] [address] [place] [address] [place] Potassium [Moles/Vol] 4.1 mmol/L Normal 3.7-5.1 [facility] Comment on above: Order Comment: Ryanne negrete Type: BLOOD SPECIMEN Ordering Facility: [facility] Address: [address] [place] [address] Performed By: #### 2 4323-03, 1987-12 #### [facility] CLIA [id number] [address] [place] [address] [place] Protein [Mass/Vol] 6.6 g/dL Normal 6.3-8.0 [facility] Comment on above: Order Comment: Ryanne negrete Type: BLOOD SPECIMEN Ordering Facility: [facility] Address: [address] [place], [place] [address] Performed By: #### 2 43238, 1987-12 #### [facility] CLIA [id number] [address] [place] [facility] Sodium [Moles/Vol] 140 mmol/L Normal 136-144 [facility] Comment on above: Order Comment: Speci men Type: BLOOD SPECIMEN Ordering Facility: [facility] Address: [address] [place] [address] Performed By: #### 2 43238, 1987-12 #### [facility] CLIA [id number] [address] [place] Urea nitrogen [Mass/Vol] 10 mg/dL Normal 7-21 [facility] Comment on above: Order Comment: Speci men Type: BLOOD SPECIMEN Ordering Facility: [facility] Address: [address] [place] [address] Performed By: #### 2 43238, 1987-12 #### [facility] CLIA [id number] [address] [place] ALLIED HEALTHon 02-15-2024 ALLIED HEALTH HNO ID: [id number] Author: MIGUEL GRIFFITHS RT(R) Service: Radiology Author Type: Technologist Type: Allied Health Filed: 02/15/2024 11:50 Note Text: Radiology Service Progress Note DATE OF SERVICE: February 15, 2024 TIME: 11:50 AM PATIENT IDENTITY VERIFICATION COMPLETED USING TWO (2) STANDARD IDENTIFIERS: Name and Date of confirmed by patient verbally and Name and Date of confirmed by identification band. FALL SCREENING: Has the patient had 2 falls in the last year or 1 fall with injury or currently using an Ambulatory Assistive Device (Walker, Cane, Wheelchair, Crutches, etc.)? Emergency Room Patient: Screened in ED PATIENT GENDER DATA: Female. status: : No status: NO. PATIENT RELEVANT IMPLANT DATA REVIEWED: Yes PATIENT PRESENTS WITH AN IMPLANTABLE OR ATTACHED DOMINATRIX: No ALLERGIES: Reviewed and unchanged CONTRAST ALLERGY: NO. EXAM: CT -CONTRAST INDUCED NEPHROPATHY RISK FACTORS: Not applicable CREATININE: Creatinine Date Value Ref Range Status 02/15/2024 0.90 0.58 - 0.96 mg/dL Final 02/14/2024 0.94 0.58 - 0.96 mg/dL Final 03/28/2023 0.87 0.58 - 0.96 mg/dL Final Estimated Glomerular Filtration Rate Date Value Ref Range Status 02/15/2024 88 >=60 mL/min/1.73m? Final Comment: Estimated Glomerular Filtration Rate (eGFR) is calculated using the 2020 CKD-EPI creatinine equation. This equation utilizes serum creatinine, sex, and age as parameters. The creatinine assay has traceable calibration to isotope dilution-mass spectrometry. Refer to KDIGO guidelines for clinical interpretation. In patients with unstable renal function, e.g. those with acute kidney injury, the eGFR may not accurately reflect actual GFR. eGFR- Date Value Ref Range Status 07/20/2021 >60 Final P.O.C.T. RESULTS: POC done: Yes, See Lab Tab February 15, 2024 TREATMENT: N/A PERIPHERAL IV DATA: Inpatient - refer to LDA documentation RADIOLOGY DEPARTMENT: CT; Exam(s) Completed: Neck SIGNATURE: RT Johnna(R) PATIENT NAME: Gayle Thompson DATE: February 15, 2024 TIME: 11:50 AM Normal [facility] Bacteria Bld Culton 02-15-20 24 Bacteria identified Cx Nom (Bld) CULTURE, BLOOD: No growth 5 days Normal [facility] Comment on above: Performed By: #### 2 106-3 #### [facility] CLIA [id number] [address] [place] [address] [place] CBC W Auto Differential pane l (Bld)on 02-15-2024 Basophils (Bld) [#/Vol] 0.04 10*3/uL Normal <0.11 [facility] Comment on above: Order Comment: Speci men Type: BLOOD SPECIMEN Ordering Facility: [facility] Address: [address] [place] [address] Performed By: #### 5 7021-8 #### [facility] CLIA [id number] [address] [place] Basophils/100 WBC (Bld) 0.5 % Normal [facility] Comment on above: Order Comment: Speci men Type: BLOOD SPECIMEN Ordering Facility: [facility] Address: [address] [place] [address] Performed By: #### 5 7021-8 #### [facility] CLIA [id number] [address] [place] Differential cell count method Nom (Bld) Auto Normal [facility] Comment on above: Order Comment: Speci men Type: BLOOD SPECIMEN Ordering Facility: [facility] Address: [address] [place] [address] Performed By: #### 5 7021-8 #### [facility] CLIA [id number] [address] [place] [address] [place] Eosinophils (Bld) [#/Vol] 0.17 10*3/uL Normal <0.46 [facility] Comment on above: Order Comment: Speci men Type: BLOOD SPECIMEN Ordering Facility: [facility] Address: [address] [place] [address] Performed By: #### 5 7021-8 #### [facility] CLIA [id number] [address] [place] Eosinophils/100 WBC (Bld) 2.0 % Normal [facility] Comment on above: Order Comment: Speci men Type: BLOOD SPECIMEN Ordering Facility: [facility] Address: [address] [place] [address] Performed By: #### 5 7021-8 #### [facility] CLIA [id number] [address] [place] Erythrocyte distribution width (RBC) [Ratio] 13.3 % Normal 11.5-15.0 [facility] Comment on above: Order Comment: Speci men Type: BLOOD SPECIMEN Ordering Facility: [facility] Address: [address] [place] [address] Performed By: #### 5 7021-8 #### [facility] CLIA [id number] [address] [place] Hematocrit (Bld) [Volume fraction] 42.2 % Normal 36.0-46.0 [facility] Comment on above: Order Comment: Speci men Type: BLOOD SPECIMEN Ordering Facility: [facility] Address: [address] [place] [address] Performed By: #### 5 7021-8 #### [facility] CLIA [id number] [address] [place] [address] [place] Hemoglobin (Bld) [Mass/Vol] 14.3 g/dL Normal 11.5-15.5 [facility] Comment on above: Order Comment: Speci men Type: BLOOD SPECIMEN Ordering Facility: [facility] Address: [address] [place] [address] Performed By: #### 5 7021-8 #### [facility] CLIA [id number] [address] [place] [address] [place] Immature granulocytes (Bld) [#/Vol] 10*3/uL Normal <0.10 [facility] Comment on above: Order Comment: Speci men Type: BLOOD SPECIMEN Ordering Facility: [facility] Address: [address] [place] [address] Performed By: #### 5 7021-8 #### [facility] CLIA [id number] [address] [place] Immature granulocytes/100 WBC (Bld) 0.2 % Normal [facility] Comment on above: Order Comment: Speci men Type: BLOOD SPECIMEN Ordering Facility: [facility] Address: [address] [place] [address] Performed By: #### 5 7021-8 #### [facility] CLIA [id number] [address] [place] [address] [place] Lymphocytes (Bld) [#/Vol] 1.28 10*3/uL Normal 1.00-4.00 [facility] Comment on above: Order Comment: Speci men Type: BLOOD SPECIMEN Ordering Facility: [facility] Address: [address] [place] [address] Performed By: #### 5 7021-8 #### [facility] CLIA [id number] [address] Lymphocytes/100 WBC (Bld) 15.0 % Normal [facility] Comment on above: Order Comment: Speci men Type: BLOOD SPECIMEN Ordering Facility: [facility] Address: [address] [place] [address] Performed By: #### 5 7021-8 #### [facility] CLIA [id number] [address] MCH (RBC) [Entitic mass] 29.4 pg Normal 26.0-34.0 [facility] Comment on above: Order Comment: Speci men Type: BLOOD SPECIMEN Ordering Facility: [facility] Address: [address] [place] [address] Performed By: #### 5 7021-8 #### [facility] CLIA [id number] [address] MCHC (RBC) [Mass/Vol] 33.9 g/dL Normal 30.5-36.0 [facility] Comment on above: Order Comment: Speci men Type: BLOOD SPECIMEN Ordering Facility: [facility] Address: [address] [place] [address] Performed By: #### 5 7021-8 #### [facility] CLIA [id number] [address] MCV (RBC) [Entitic vol] 86.8 fL Normal 80.0-100.0 [facility] Comment on above: Order Comment: Speci men Type: BLOOD SPECIMEN Ordering Facility: [facility] Address: [address] [place] [address] Performed By: #### 5 7021-8 #### [facility] CLIA [id number] [address] Monocytes (Bld) [#/Vol] 0.64 10*3/uL Normal <0.87 [facility] Comment on above: Order Comment: Speci men Type: BLOOD SPECIMEN Ordering Facility: [facility] Address: [address] [place] [address] Performed By: #### 5 7021-8 #### [facility] CLIA [id number] [address] Monocytes/100 WBC (Bld) 7.5 % Normal [facility] Comment on above: Order Comment: Speci men Type: BLOOD SPECIMEN Ordering Facility: [facility] Address: [address] [place] [address] Performed By: #### 5 7021-8 #### [facility] CLIA [id number] [address] [place] Neutrophils (Bld) [#/Vol] 6.39 10*3/uL Normal 1.45-7.50 [facility] Comment on above: Order Comment: Speci men Type: BLOOD SPECIMEN Ordering Facility: [facility] Address: [address] [place] [address] Performed By: #### 5 7021-8 #### [facility] CLIA [id number] [address] [place] Neutrophils/100 WBC (Bld) 74.8 % Normal [facility] Comment on above: Order Comment: Speci men Type: BLOOD SPECIMEN Ordering Facility: [facility] Address: [address] [place] [address] Performed By: #### 5 7021-8 #### [facility] CLIA [id number] [address] [place] Nucleated RBC (Bld) [#/Vol] 10*3/uL Normal <0.01 [facility] Comment on above: Order Comment: Speci men Type: BLOOD SPECIMEN Ordering Facility: [facility] Address: [address] [place] [address] Performed By: #### 5 7021-8 #### [facility] CLIA [id number] [address] Nucleated RBC/100 WBC (Bld) [Ratio] 0.0 /100 WBC Normal [facility] Comment on above: Order Comment: Speci men Type: BLOOD SPECIMEN Ordering Facility: [facility] Address: [address] [place] [address] Performed By: #### 5 7021-8 #### [facility] CLIA [id number] [address] Platelet mean volume (Bld) [Entitic vol] 10.9 fL Normal 9.0-12.7 [facility] Comment on above: Order Comment: Speci men Type: BLOOD SPECIMEN Ordering Facility: [facility] Address: [address] [place] [address] Performed By: #### 5 7021-8 #### [facility] CLIA [id number] [address] [place] Platelets (Bld) [#/Vol] 170 10*3/uL Normal 150-400 [facility] Comment on above: Order Comment: Speci men Type: BLOOD SPECIMEN Ordering Facility: [facility] Address: [address] [place] [address] Performed By: #### 5 7021-8 #### [facility] CLIA [id number] [address] [place] RBC (Bld) [#/Vol] 4.86 10*6/uL Normal 3.90-5.20 [facility] Comment on above: Order Comment: Speci men Type: BLOOD SPECIMEN Ordering Facility: [facility] Address: [address] [place] [address] Performed By: #### 5 7021-8 #### [facility] CLIA [id number] [address] [place] WBC (Bld) [#/Vol] 8.54 10*3/uL Normal 3.70-11.00 [facility] Comment on above: Order Comment: Speci men Type: BLOOD SPECIMEN Ordering Facility: [facility] Address: [address] [place] [address] Performed By: #### 5 7021-8 #### [facility] CLIA [id number] [address] CONSULT PROGon 02-15-2024 CONSULT PROG HNO ID: [id number] Author: ASHLEY WILLAMS RPh Service: Pharmacy Author Type: Pharmacist Type: Consult Progress Note Filed: 02/15/2024 13:22 Note Text: PHARMACY VANCOMYCIN DOSING NOTE Patient Name: Gayle Thompson Admission Date: 02/15/2024 Date of Consult: 02/15/2024 Time of Consult: 1:21 PM Indication: Skin/Soft tissue infection Goal Range: 10-20 mcg/mL RECOMMENDATIONS/PLAN: Pharmacy consulted for vancomycin dosing for Gayle Thompson, a 33 year old female. 1. Patient is currently ordered Vancomycin 1.5 g IV q12h. Today is day 1 of therapy. 2. No vancomycin level has been drawn for this dosing regimen. 3. The present dose of vancomycin is the recommended dosage for this patient at this time. Continue therapy as prescribed. 4. The next vancomycin level will be ordered for 02/17/2024 unless clinically indicated sooner. (Pharmacy will order) We will follow patient renal function, vancomycin levels and doses with you during the course of therapy. Additional recommendations will appear in follow up notes. If you have any questions, please contact pharmacy at [phone]. Age: [age] year old Allergies: ALLERGIES No Known Allergies Last 3 Encounter Wt Readings: Date: Wt: 02/15/2024 104.3 kg (230 lb) 02/14/2024 104.3 kg (230 lb) 12/26/2023 109.3 kg (241 lb) Last 1 Encounter Ht Readings: Date: Ht: 02/14/2024 172.7 cm (5' 8) CrCl: 114.5 mL/min Temp (24hrs), Av.8 ?C (98.2 ?F), Min:36.8 ?C (98.2 ?F), Max:36.8 ?C (98.2 ?F) - Current Temp: 36.8 ?C (98.2 ?F) Labs BUN (mg/dL) Date Value 02/15/2024 14 02/14/2024 16 03/28/2023 14 Creatinine (mg/dL) Date Value 02/15/2024 0.90 02/14/2024 0.94 03/28/2023 0.87 WBC (k/uL) Date Value 02/15/2024 8.54 02/14/2024 10.46 03/28/2023 6.73 Vancomycin Levels: No results found for: JULIAN Willams [facility] Normal [facility] CRP SerPl-mCncon 02-15-2024 CRP [Mass/Vol] 4.7 mg/dL High <0.9 [facility] Comment on above: Order Comment: Speci men Type: BLOOD SPECIMEN Ordering Facility: [facility] Address: [address] [place] [address] [address], [place] [address] Performed By: #### 2 4323-8, 1987-12 #### [facility] CLIA [id number] [address] [place] [address] [place] [address] NECK SOFT TISSUE W IVCONo n 02-15-2024 CT NECK SOFT TISSUE W IVCON * * *Final Report* * * DATE OF EXAM: Feb 15 2024 11:52AM [facility] [place] NECK SOFT TISSUE W IVCON / PROCEDURE REASON: Maxillary/facial abscess * * * * Physician Interpretation * * * * CT NECK SOFT TISSUE W IVCON History: Swelling along lower lip. Comparison: None Technique: A series of contiguous helical scans were performed from the skull base to the aortic arch with intravenous contrast. Contrast: Omnipaque 350. Contrast Dose: 100 cc Route of Administration: IV CT Radiation dose: Integrated Dose-length product (DLP) for this visit = 354 mGy*cm. CT Dose Reduction Employed: Automated exposure control(AEC) and iterative recon RESULT: Postoperative change: None apparent. Suprahyoid Neck: There is a small ring-enhancing collection deep to the right lower lip measuring 17 x 5 x 8 mm (series 2 image 66 and series 603 image 20) compatible with the superficial abscess. Large amount of inflammatory changes adjacent to this collection. Nasopharynx and oropharynx appear normal. Parapharyngeal tissue planes are preserved. Oral cavity and floor of mouth appear normal within constraints of artifact from dental amalgam. Parotid and submandibular spaces are normal. Gun Mechanic spaces appear normal. Infrahyoid Neck: Hypopharynx, larynx, and imaged infraglottic trachea appear normal. Imaged upper esophagus is unremarkable. Thyroid gland is homogeneous without evidence of discrete nodule. Lymph Nodes: No cervical lymphadenopathy by size criteria. Carotid Space: No masses. Patent extracranial carotid systems and internal jugular veins bilaterally. Orbits, Face and Skull Base: Orbital soft tissue planes are preserved. Paranasal sinuses are clear. Mastoid air cells and middle ear cavities are clear. No evidence of an osteolytic or osteoblastic process in the skull base. Imaged intracranial contents: No abnormal intracranial enhancement, mass effect, or hydrocephalus. Cervical spine and remaining osseous structures: No discrete osteolytic or osteoblastic process. No significant spondylotic changes in the visualized spine. Lung apices: Imaged lung apices are clear of focal consolidation or mass. Other: Not applicable. IMPRESSION: Small superficial abscess deep to the right upper lip. No radiopaque foreign bodies. No subcutaneous emphysema. Cellulitis surrounding this abscess. No involvement of the floor of mouth or tongue. No lymphadenopathy. Plumbing Designer: PSCB Transcribe Date/Time: Feb 15 2024 12:37P Dictated by : DANISHA STUART MD This examination was interpreted and the report reviewed and electronically signed by: DANISHA STUART MD on Feb 15 2024 12:40PM EST [id number] Normal [facility] Comprehensive metabolic 2000 panelon 02-15-2024 Albumin [Mass/Vol] 4.0 g/dL Normal 3.9-4.9 [facility] Comment on above: Order Comment: Speci men Type: BLOOD SPECIMEN Ordering Facility: [facility] Address: [address] [place] [address] Performed By: #### 2 4323-03, 1987-12 #### [facility] CLIA [id number] [address] [place] [address] [place] ALP [Catalytic activity/Vol] 72 U/L Normal 34-123 [facility] Comment on above: Order Comment: Speci men Type: BLOOD SPECIMEN Ordering Facility: [facility] Address: [address] [place] [address] Performed By: #### 2 4323-03, 1987-12 #### [facility] CLIA [id number] [address] [place] [address] [place] ALT [Catalytic activity/Vol] 24 U/L Normal 7-38 [facility] Comment on above: Order Comment: Speci men Type: BLOOD SPECIMEN Ordering Facility: [facility] Address: [address] [place] [address] Performed By: #### 2 4323-03, 1987-12 #### [facility] CLIA [id number] [address] [place] [address] [place] Anion gap [Moles/Vol] 9 mmol/L Normal 8-15 [facility] Comment on above: Order Comment: Speci men Type: BLOOD SPECIMEN Ordering Facility: [facility] Address: [address] [place] [address] Performed By: #### 2 4323-03, 1987-12 #### [facility] CLIA [id number] [address] [place] [address] [place] AST [Catalytic activity/Vol] 19 U/L Normal 13-35 [facility] Comment on above: Order Comment: Speci men Type: BLOOD SPECIMEN Ordering Facility: [facility] Address: [address] [place] [address] Performed By: #### 2 4323-03, 1987-12 #### [facility] CLIA [id number] [address] [place] [address] [place] Bilirubin [Mass/Vol] 0.6 mg/dL Normal 0.2-1.3 [facility] Comment on above: Order Comment: Speci men Type: BLOOD SPECIMEN Ordering Facility: [facility] Address: [address] [place] [address] Performed By: #### 2 4323-03, 1987-12 #### [facility] CLIA [id number] [address] [place] [address] [place] Calcium [Mass/Vol] 9.0 mg/dL Normal 8.5-10.2 [facility] Comment on above: Order Comment: Speci men Type: BLOOD SPECIMEN Ordering Facility: [facility] Address: [address] [place] [address] Performed By: #### 2 4323-03, 1987-12 #### [facility] CLIA [id number] [address] [place] [address] [place] Chloride [Moles/Vol] 106 mmol/L Normal 98-107 [facility] Comment on above: Order Comment: Speci men Type: BLOOD SPECIMEN Ordering Facility: [facility] Address: [address] [place] [address] Performed By: #### 2 4323-03, 1987-12 #### [facility] CLIA [id number] [address] [place] [address] [place] CO2 [Moles/Vol] 23 mmol/L Normal 22-30 [facility] Comment on above: Order Comment: Speci men Type: BLOOD SPECIMEN Ordering Facility: [facility] Address: [address] [place] [address] Performed By: #### 2 4323-03, 1987-12 #### [facility] CLIA [id number] [address] [place] [address] [place] [facility] Creatinine [Mass/Vol] 0.90 mg/dL Normal 0.58-0.96 [facility] Comment on above: Order Comment: Ryanne negrete Type: BLOOD SPECIMEN Ordering Facility: [facility] Address: [address] [place] [address] Performed By: #### 2 4323-8, 1987-12 #### [facility] CLIA [id number] [address] Creatinine and Glomerular filtration rate.predicted panel (S/P/Bld) 88 mL/min/1.73m??? Normal >=60 [facility] Comment on above: Order Comment: Ryanne negrete Type: BLOOD SPECIMEN Ordering Facility: [facility] Address: [address] [place] [address] Result Comment: Malika mated Glomerular Filtration Rate (eGFR) is calculated using the 2020 CKD-EPI creatinine equation. This equation utilizes serum creatinine, sex, and age as parameters. The creatinine assay has traceable calibration to isotope dilution-mass spectrometry. Refer to KDIGO guidelines for clinical interpretation. In patients with unstable renal function, e.g. those with acute kidney injury, the eGFR may not accurately reflect actual GFR. Performed By: #### 2 4323-8, 1987-12 #### [facility] CLIA [id number] [address] OF [facility] Glucose [Mass/Vol] 95 mg/dL Normal 74-99 [facility] Comment on above: Order Comment: Ryanne negrete Type: BLOOD SPECIMEN Ordering Facility: [facility] Address: [address] [place] [address] Result Comment: The [place] [employer] (ADA) provides guidance for cutoff values for fasting glucose and random glucose. The ADA defines fasting as no caloric intake for at least 8 hours. Fasting plasma glucose results between 100 to 125 mg/dL indicate increased risk for diabetes (prediabetes). Fasting plasma glucose results greater than or equal to 126 mg/dL meet the criteria for diagnosis of diabetes. In the absence of unequivocal hyperglycemia, results should be confirmed by repeat testing. In a patient with classic symptoms of hyperglycemia or hyperglycemic crisis, random plasma glucose results greater than or equal to 200 mg/dL meet the criteria for diagnosis of diabetes. Reference: Standards of Medical Care in Diabetes 2016, [place] [employer]. Diabetes Care. 2016.39(Suppl 1). Performed By: #### 2 4323-03, 1987-12 #### [facility] CLIA [id number] [address] STATES OF [facility] Potassium [Moles/Vol] 3.9 mmol/L Normal 3.7-5.1 [facility] Comment on above: Order Comment: Ryanne men Type: BLOOD SPECIMEN Ordering Facility: [facility] Address: [address] [place] [address] Performed By: #### 2 4323-03, 1987-12 #### [facility] CLIA [id number] [address] STATES OF [facility] Protein [Mass/Vol] 7.0 g/dL Normal 6.3-8.0 [facility] Comment on above: Order Comment: Ryanne negrete Type: BLOOD SPECIMEN Ordering Facility: [facility] Address: [address] [place] [address] Performed By: #### 2 4323-03, 1987-12 #### [facility] CLIA [id number] [address] Sodium [Moles/Vol] 138 mmol/L Normal 136-144 [facility] Comment on above: Order Comment: Ryanne negrete Type: BLOOD SPECIMEN Ordering Facility: [facility] Address: [address] [place] [address] Performed By: #### 2 4323-03, 1987-12 #### [facility] CLIA [id number] [address] [place] Urea nitrogen [Mass/Vol] 14 mg/dL Normal 7-21 [facility] Comment on above: Order Comment: Ryanne men Type: BLOOD SPECIMEN Ordering Facility: [facility] Address: [facility] [place] [address] Performed By: #### 2 4323-03, 1987-12 #### [facility] CLIA [id number] [address] [place] ED NOTEon 06-27-2024 ED NOTE HNO ID: [id number] Author: HEIDI LOPEZ RN Service: ? Author Type: Registered Nurse Type: ED Notes Filed: 02/15/2024 13:20 Note Text: Report off to [facility] ED PROV NOTEon 02-15-2024 ED PROV NOTE HNO ID: [id number] Author: MISAEL LIM MD Service: Emergency Medicine Author Type: Physician Type: ED Provider Notes Filed: 02/16/2024 09:56 Note Text: ED Provider Note Patient Name: Gayle Thompson : 1990 SERVICE DATE: 02/15/24 History Patient presents with: Wound Check: Had some swelling on face on lower lip started on Monday and a knot below lower lip, started on antibotics, went to ER last night because swelling got worse and they tried to rain it but not much came out and now swelling is worse Facial Swelling: R side of face and lower lip 33 yr old F w/ pmhx asthma, generalized anxiety disorder, presenting to ED w/ facial swelling. Symptoms for about 4 days. Reports deep pimple to R side of lower face last week. States went to see Urgent Care on Monday for swelling of the area and was diagnosed w/ impetigo and started on bactroban and Bactrim DS. States worsening and swelling and discomfort and went to [place] ED yesterday. Had IANDD and was discharged home. States worsening symptoms since last night and now has significant swelling of face including lower lip. Has felt warm but no fever. Tried warm compresses and naproxen without relief. No difficulty breathing or swallowing, trismus, drooling, muffled voice, neck pain / swelling / stiffness, cp, sob, abd pain, n/v/d, urinary symptoms, or cough. No hx of abscesses in past. No concern for . No known medication allergies. Denies alcohol, tobacco, or drug use. History provided by: Patient risk consultant used: No PAST MEDICAL HISTORY Diagnosis Date Acute right ankle pain Allergies Asthma as a kid Delayed emergence from general anesthesia Generalized anxiety disorder Hammer toe Migraines Palpitations Plantar fasciitis PONV (postoperative nausea and vomiting) PAST SURGICAL HISTORY Procedure Laterality Date ANKLE SURGERY HX Right 07/27/2021 APPLICATION UNIPLANE EXTERNAL FIXATION SYSTEM Right 07/18/2021 CLTX FX W8 BRG ARTCLR PRTN DSTL TIB W/SKEL TRACJ Right 07/18/2021 CORRECTION HAMMERTOE Right 2013 EXTRACTION ERUPTED TOOTH 2016 wisdom teeth PAST SURGICAL HISTORY OF Right 10/23/2023 1. Removal internal fixation, right tibia PROCEDURE Bilateral pins in big toes 2010 PT ED OBSTETRICS AND GYNECOLOGY 08/2023 ENDOMETRIAL ABLATION SALPINGECTOMY COMPLETE/PARTIAL UNI/BI SPX 2020 FAMILY HISTORY Problem Relation Age of Onset other (Circulation problems) Mother other (High Blood Pressure) Mother other (fibromyalgia) Mother Hypertension Mother Cancer Mother cervical cancer Allergies Mother Bee venom, seasonal Depression Mother Anxiety disorder Mother Migraines Mother Thyroid Mother ADD/ADHD Father Migraines Sister Anxiety disorder Sister Depression Sister Asthma Sister Obesity Sister Thyroid Sister other (Gallbladder) Sister Asthma Brother Alzheimer's Disease Brother Diabetes Brother Cancer Maternal Grandmother Arthritis Maternal Grandmother COPD Maternal Grandmother other (ibs) Maternal Grandfather Obesity Paternal Grandmother other (colitis) Paternal Grandmother other (GERD) Daughter ADD/ADHD Son Allergies Son several other (gerd) Son Colon Cancer Other Social History Tobacco Use Smoking status: Never Smokeless tobacco: Never Vaping Use Vaping Use: Never used Substance and Sexual Activity Alcohol use: Yes Comment: occ. Drug use: Never Sexual activity: Yes Partners: Male ALLERGIES No Known Allergies Review of Systems Constitutional: Positive for fever (tactile). Negative for chills. HENT: Positive for facial swelling. Negative for drooling, sore throat, trouble swallowing and voice change. Eyes: Negative. Respiratory: Negative for cough and shortness of breath. Cardiovascular: Negative for chest pain. Gastrointestinal: Negative for abdominal pain, diarrhea, nausea and vomiting. Endocrine: Negative. Genitourinary: Negative for dysuria and frequency. Musculoskeletal: Negative. Negative for neck pain and neck stiffness. Skin: Negative. Allergic/Immunologic: Negative. Neurological: Negative. Hematological: Negative. Psychiatric/Behavioral : Negative. Physical Exam Vitals [02/15/24 1011] BP Pulse Temp Temp src Resp SpO2 Weight Height 137/87 71 36.8 ?C (98.2 ?F) Oral 18 98 % 104.3 kg (230 lb) -- Physical Exam Vitals and nursing note reviewed. Constitutional: General: She is not in acute distress. Appearance: Normal appearance. She is not ill-appearing, toxic-appearing or diaphoretic. HENT: Head: Comments: Honey colored crusts to R mandible area; Soft tissue swelling and faint erythema area in red; full ROM of jaw and neck. Floor of mouth soft and non-tender. Airway patent. No palpable abscess. Mouth/Throat: Pharynx: Oropharynx is clear. Eyes: Conjunctiva/sclera: Conjunctivae normal. Cardiovascular: Rate and Rhythm: Normal rate and regular r (more content not included)... Normal [facility] HISTORY PHYSICALon HISTORY PHYSICAL HNO ID: [id number] Author: KAREN SERRANO MD Service: Hospital Medicine Author Type: Physician Type: H&P Filed: 02/15/2024 17:10 Note Text: [facility] MEDICINE HISTORY AND PHYSICAL NOTE Name: Gayle Thompson SERVICE DATE: February 15, 2024 SERVICE TIME: 5:00 PM Primary Service / Attending : HOSPITAL MEDICINE / Dr. Karen Serrano MD [phone] (page me between 7:30 AM - 5:30 PM) After Hours: Page [phone] ([place]) from 5 PM to 7 AM ASSESSMENT AND PLAN 33 YF with hx of migraine here with facial cellulitis - cont Vanc - Nasal swab for MRSA - check CRP HPI: This is a 33 YF with hx of migraine started with swelling to her lower face due to cellulitis and was treated with bactrim as OP with no response and worsening of symptoms. Y'day in [place] ED swelling was aspirated with a small needle and was subsequently discharged home. After no improvement and worsening pain she presented to [place] ER and subsequently admitted for IV abx. She denies any fever, chills, cold sweats or rigors. Has CERVANTES likely from her migraines. No photophobia. Some difficulty with chewing. In ER CT showed Small superficial abscess deep to the right upper lip. No radiopaque foreign bodies. No subcutaneous emphysema. Cellulitis surrounding this abscess. No involvement of the floor of mouth or tongue. No lymphadenopathy. Received one dose of Vanc and Zosyn WBC: 8.54 LA: 0.6 PAST MEDICAL HISTORY Diagnosis Date Acute right ankle pain Allergies Asthma as a kid Delayed emergence from general anesthesia Generalized anxiety disorder Hammer toe Migraines Palpitations Plantar fasciitis PONV (postoperative nausea and vomiting) PAST SURGICAL HISTORY Procedure Laterality Date ANKLE SURGERY HX Right 07/27/2021 APPLICATION UNIPLANE EXTERNAL FIXATION SYSTEM Right 07/18/2021 CLTX FX W8 BRG ARTCLR PRTN DSTL TIB W/SKEL TRACJ Right 07/18/2021 CORRECTION HAMMERTOE Right 2010, 2013 EXTRACTION ERUPTED TOOTH 2016 wisdom teeth PAST SURGICAL HISTORY OF Right 10/23/2023 1. Removal internal fixation, right tibia PROCEDURE Bilateral pins in big toes 2010 PT ED OBSTETRICS AND GYNECOLOGY 08/2023 ENDOMETRIAL ABLATION SALPINGECTOMY COMPLETE/PARTIAL UNI/BI SPX 2020 FAMILY HISTORY Problem Relation Age of Onset other (Circulation problems) Mother other (High Blood Pressure) Mother other (fibromyalgia) Mother Hypertension Mother Cancer Mother cervical cancer Allergies Mother Bee venom, seasonal Depression Mother Anxiety disorder Mother Migraines Mother Thyroid Mother ADD/ADHD Father Migraines Sister Anxiety disorder Sister Depression Sister Asthma Sister Obesity Sister Thyroid Sister other (Gallbladder) Sister Asthma Brother Alzheimer's Disease Brother Diabetes Brother Cancer Maternal Grandmother Arthritis Maternal Grandmother COPD Maternal Grandmother other (ibs) Maternal Grandfather Obesity Paternal Grandmother other (colitis) Paternal Grandmother other (GERD) Daughter ADD/ADHD Son Allergies Son several other (gerd) Son Colon Cancer Other Social History Tobacco Use Smoking status: Never Smokeless tobacco: Never Vaping Use Vaping Use: Never used Substance Use Topics Alcohol use: Yes Comment: occ. Drug use: Never Medications: Current Facility-Administered Medications Medication Dose Route Frequency NaCl 0.9% iv flush bag 20 mL INTRAVENOUS PRN vancomycin 1.5 g in NaCl 0.9% 250 mL (VANCOCIN) 0.015 g/kg/dose INTRAVENOUS q 12 HR vancomycin dosing and monitoring per pharmacy OTHER As Directed iv contrast (radiology procedure) INTRAVENOUS DIRECTED PRN topiramate 50 mg tab(s) (TOPAMAX) 50 mg ORAL AT BEDTIME ondansetron orally disintegrating 4 mg tab(s) (ZOFRAN ODT) 4 mg ORAL q 6 H PRN Or ondansetron (PF) 4 mg injection (ZOFRAN) 4 mg INTRAVENOUS q 6 H PRN ibuprofen 600 mg tab(s) (MOTRIN) 600 mg ORAL q 6 H PRN Allergies: ALLERGIES No Known Allergies Review of Systems: All other reviewed and negative other than HPI. PHYSICAL EXAM: Blood pressure 130/86, pulse 84, temperature 36.8 ?C (98.2 ?F), temperature source Oral, resp. rate 16, height 172.7 cm (5' 8), weight 105 kg (231 lb 7.7 oz), SpO2 99%, unknown if currently . GENERAL: alert, no distress, cooperative SKIN: No rash or lesions OROPHARYNX: Lips, mucosa, and tongue normal. Oropharynx moist. LUNGS: Lungs clear to auscultation. Good diaphragmatic excursion. CARDIAC: normal S1 and S2; no rubs, murmurs, or gallops. No JVD ABDOMEN: Abdomen soft, non-tender. BS normal. No masses or organomegaly. EXTREMITIES: No edema. NEURO: Negative DATA: Recent Labs 02/15/24 1049 02/14/241956 WBC 8.54 10.46 HB 14.3 13.7 HCT 42.2 39.5 PLT 170 171 MCV 86.8 87.2 RDWCV 13.3 13.4 NEUTP 74.8 73.9 ABSNEUT 6.39 7.73* LYMPHP 15.0 18.1 MONOP 7.5 6.2 EODINP 2.0 1.2 GLUC 95 79 NA 138 140 K 3.9 3.6* (more content not included)... Normal [facility] SEPSIS LACTATE W/ REFLEX (IN ITIAL)on 02-15-2024 Lactate [Moles/Vol] 0.6 mmol/L Normal 0.5-2.0 [facility] Comment on above: Order Comment: Speci men Type: BLOOD SPECIMEN Ordering Facility: [facility] Address: [address] [place] [address] Performed By: #### 2 4323-8, 1987-12 #### [facility] CLIA [id number] [address] [place] [address] [place] STAPHYLOCOCCUS AUREUS AND MR SA SCREEN, PCR, NASALon 02-15-2024 S. aureus and MRSA panel GAETANO+probe (Nose) Methicillin-RESISTANT Staphylococcus aureus (MRSA) Detected Abnormal Not Detected [facility] Comment on above: Order Comment: Speci men Type: SWAB Ordering Facility: [facility] Address: [address] [place] [address] Performed By: #### S APCR #### [facility] CLIA [id number] [facility] [address]K [address] [address] [place] [facility] Office Visit Reporton 2023 Office Visit Report [facility] [address] [place] [address] OFFICE VISIT Date of Service: 09/25/23 MR#: [id number] Acct: [id number] Patient: GAYLE THOMPSON Rep #: [id number] : 1990 Provider: PASCALE Olivia Age/Sex: 33/F Location: [facility] Status: Signed with Addenda ADDENDUM by Karla Elliott on 02/07/24 at 1030 Office Procedure Documentation entered by Karla Elliott 02/07/24 10:30: [facility] Billing Sheet Testing Pre-Employment Drug Screen: Yes Date cc: * Signed Intake Vital Signs 03/10/23 21:16 Height 5 ft 8 in Intake Visit Reasons: PRE EMP/NON DOT/DRUG SCREEN/[facility] Allergies No Known Allergies Allergy (Verified 03/10/23 21:15) 09/25/23 1015 Date Misael ASHRAF [facility] Signature: Date (if applicable) CC: Normal [facility] HCG ( test) Nate bergeron Ql (U)Ordered By: Maria D Gabriel on 08-31-2023 HCG ( test) Ql (U) Negative NEGATIVE [facility] Interpretation and review of laboratory results Normal [facility] HCG ( test) Nate bergeron Ql (U)on 08-31-2023 HCG ( test) Ql (U) Negative Normal NEGATIVE [facility] Comment on above: Performed By: #### 8 0384-1 #### [facility] ([id number]) [facility] ([facility]) [address] [place] [address] Surgical pathology studyon 0 08-31-2023 Surgical pathology study Pathology report.total SEE COMMENT Surgical Pathology Case: [id number] Authorizing Provider: Maria D Ortega MD Collected: 08/31/2023 1309 Ordering Location: [facility] Received: 08/31/2023 1442 Center OR Pathologist: eVrna Tom DO Specimen: ENDOMETRIUM CURETTINGS, ENDOMETRIAL CURETTINGS Path report.final diagnosis SEE COMMENT A. ENDOMETRIUM, CURETTAGE: -- PROLIFERATIVE PHASE ENDOMETRIUM. Laboratory comment By the signature on this report, the individual or group listed as making the Final Interpretation/Diagnos is certifies that they have reviewed this case. RESIDENT REVIEW Smita Perdue MD Path report.relevant Hx 33 yo woman with abnormal uterine bleeding. Path report.gross observation SEE COMMENT A: Received in formalin, labeled with the patient???s name and hospital number and ``EM[facility]?, are multiple fragments of mucus, blood, and soft tissue, aggregating to 4.0 x 1.8 x 1.3 cm. The specimen is submitted in toto in two cassettes. DMB Normal [facility] Comment on above: Order Comment: Pre-o p diagnosis: Menorrhagia with irregular cycle [N92.1] CNOVon 08-23-2023 CNOV Office Visit (JADA ) GAYLE THOMPSON ([id number]) 1990 F Date Time Provider Department 08/23/23 11:20 AM EDIS CADET During your visit today, we recorded the following information about you: Pulse Blood pressure Weight Height 92/minute 112/74 108 kg 1.727 m Edis Cadet, DO 08/23/2023 12:46 PM Signed [facility] Department of Cardiovascular Medicine SECTION OF [facility] OUTPATIENT VISIT DATE August 23, 2023 OUTPATIENT VISIT TYPE NEW PATIENT Name: Gayle Thompson : 1990 Date: August 23, 2023 PRIMARY CARE PHYSICIAN: Noelle Blanc [address] [place] [address] REFERRING PHYSICIAN: Noelle Blanc [address] [facility] [address] CHIEF COMPLAINT: Patient presents with: CARD New Patient Consult: Consult to Cardio - Queden - 04/07/23 - Palpitations [facility] 03/28/23 - Palpitations since 12/2022 HR can jump 41-192 range (on her Apple watch) Fatigue and dizziness Holter 03/28-03/31/23 C/O palpitations daily up to 2 mins per episode. Exhausted all the time. Like to sims and at times HR will be go up to 100 BPM while sitting in the bee. IMPRESSION / PLAN: 1. Paroxysmal supraventricular tachycardia with intermittent sinus tachycardia and sinus bradycardia. The patient and I discussed her heart rates extensively and she definitely has a very labile heart rate that is easily provocable to sinus tachycardia for various reasons. I agree with the atenolol at 12.5 mg daily but did state that she can start and stop this medication or increasing the doses on an as-needed basis depending on the situation. She had outpatient evaluation with 3-day event recording which was normal with the highest sinus rate in the 150s with activity and no significant bradycardia with a minimum heart rate of 54 bpm. Echocardiogram performed on April 18, 2023 was normal. She did have an episode of a documented apparent increase in heart rate into the 190s during exertional activity but spontaneously resolved. These type episodes do not appear to be occurring at rest. She has virtually eliminated caffeine from her diet. No further cardiac testing is warranted at this time. 2. History of vasovagal near syncope. 3. Fatigue. Patient has a borderline sleep disturbance but no significant sleep apnea and feel that her current heart rate issues are not playing a role in his fatigue. 4. History of excessive uterine bleeding and iron deficiency anemia. I did state that her hormone imbalances certainly could be playing a role in exacerbating her arrhythmias and is being followed closely by [facility]. She has no evidence of iron deficiency anemia at this time. 5. History of migraine headaches with recent exacerbation. Patient is scheduled to see neurology in the near future. Follow Up Instructions Return for As Needed. ORDERS FOR TODAY'S VISIT: Office Visit on 08/23/23 CONSULT TO CARDIOLOGY HISTORY OF PRESENT ILLNESS: Gayle Thompson is an 33 year old female with a past history of migraine headaches with recent exacerbation over the last year, generalized fatigue who had noticed some increasing heart rates that were abnormal for her with 1 episode of increase into the 190s while running which was a rapid increase from the 140s and 150s. She has also noticed heart rates in the 40s associated with some fatigue. She has noticed at times her resting heart rate while sitting in the bee hunting in the low 100s. She had 1 episode of near syncope that occurred at a public place while eating and drinking. She otherwise reports no exertional chest pain, shortness of breath. PAST MEDICAL HISTORY Diagnosis Date Acute right ankle pain Allergies Asthma as a kid Generalized anxiety disorder Hammer toe Migraines Palpitations Plantar fasciitis PAST SURGICAL HISTORY Procedure Laterality Date ANKLE SURGERY HX Right 07/27/2021 APPLICATION UNIPLANE EXTERNAL FIXATION SYSTEM Left 07/18/2021 CLTX FX W8 BRG ARTCLR PRTN DSTL TIB W/SKEL TRACJ Left 07/18/2021 CORRECTION HAMMERTOE Right 2010, 2013 EXTRACTION ERUPTED TOOTH 2016 wisdom teeth PROCEDURE pins in big toes 2010 SALPINGECTOMY COMPLETE/PARTIAL UNI/BI SPX 2020 SOCIAL HISTORY Social History Tobacco Use Smoking status: Never Smokeless tobacco: Never Vaping Use Vaping Use: Never used Substance Use Topics Alcohol use: Yes Comment: occ. Drug use: No FAMILY HISTORY Problem Relation Age of Onset other (Circulation problems) Mother other (High Blood Pressure) Mother other (fibromyalgia) Mother Hypertension Mother Cancer Mother cervical cancer Allergies Mother Bee venom, seasonal Depression Mother Anxiety disorder Mother Migraines Mother Thyroid Mother ADD/ (more content not included)... Normal [facility] Basic metabolic 2000 panelon 08-17-2023 Anion gap [Moles/Vol] 9 mmol/L Low 10-20 [facility] Comment on above: Performed By: #### 2 4321-2 #### YASH BUTLER ([id number]) [facility] ([facility]) [address] [place] [address]89 Calcium [Mass/Vol] 8.9 mg/dL Normal 8.6-10.3 [facility] Comment on above: Performed By: #### 2 4321-2 #### YASH BUTLER ([id number]) [facility] ([facility]) [address] [place] [address] 78110 Chloride [Moles/Vol] 107 mmol/L Normal 98-107 [facility] Comment on above: Performed By: #### 2 4321-2 #### YASH BUTLER ([id number]) [facility] ([facility]) [address] [place] [address] 00139 CO2 [Moles/Vol] 27 mmol/L Normal 21-32 [facility] Comment on above: Performed By: #### 2 4321-2 #### YASH BUTLER ([id number]) [facility] ([facility]) [address] [place] [address] 51926 Creatinine [Mass/Vol] 0.89 mg/dL Normal 0.50-1.05 [facility] Comment on above: Performed By: #### 2 4321-2 #### YASH BUTLER ([id number]) [facility] ([facility]) [address] [place] [address] 84970 GFR/1.73 sq M.predicted MDRD (S/P/Bld) [Vol rate/Area] 89 mL/min/1.73m*2 Normal >60 [facility] Comment on above: Result Comment: Calc ulations of estimated GFR are performed using the 2020 CKD-EPI Study Refit equation without the race variable for the IDMS-Traceable creatinine methods. https://jasn.asnjournals.org/content/early/ASN.38878 08483 Performed By: #### 2 4321-2 #### YASH BUTLER ([id number]) [facility] ([facility]) [address] [place] [address] Glucose [Mass/Vol] 80 mg/dL Normal 74-99 [facility] Comment on above: Performed By: #### 2 4321-2 #### YASH BUTLER ([id number]) [facility] ([facility]) [address] [place] [address]678 Potassium [Moles/Vol] 3.8 mmol/L Normal 3.5-5.3 [facility] Comment on above: Performed By: #### 2 4321-2 #### YASH BUTLER ([id number]) [facility] ([facility]) [address] [place] [address] 42550 Sodium [Moles/Vol] 139 mmol/L Normal 136-145 [facility] Comment on above: Performed By: #### 2 4320-2 #### YASH BUTLER ([id number]) [facility] ([facility]) [address] [place] [address] 45570 Urea nitrogen [Mass/Vol] 19 mg/dL Normal 6-23 [facility] Comment on above: Performed By: #### 2 4320-2 #### YASH BUTLER ([id number]) [facility] ([facility]) [address] [place], [place] [id number] Blood type and Indirect anti body screen panel (Bld)on 08-17-2023 ABO group Nom (Bld) O Normal [facility] Comment on above: Performed By: #### 3 4531-2 #### YASH BUTLER ([id number]) [facility] ([facility]) [address] [place] [address] [place] Blood group antibody screen Ql Negative [facility] Comment on above: Performed By: #### 3 4531-2 #### YASH BUTLER ([id number]) [facility] ([facility]) [address] [place] [address] US D Ag Ql (Bld) Positive [facility] Comment on above: Performed By: #### 3 4531-2 #### YASH BUTLER ([id number]) [facility] ([facility]) [address] [place] [address] CBC panel Auto (Bld)on 08-17 Erythrocyte distribution width (RBC) [Ratio] 12.7 % Normal 11.5-14.5 [facility] Comment on above: Performed By: #### 5 8410-2 #### YASH BUTLER ([id number]) [facility] ([facility]) [address] [place] [address] Hematocrit (Bld) [Volume fraction] 41.1 % Normal 36.0-46.0 [facility] Comment on above: Performed By: #### 5 8410-2 #### YASH BUTLER ([id number]) [facility] ([facility]) [address] [place] [address] Hemoglobin (Bld) [Mass/Vol] 13.8 g/dL Normal 12.0-16.0 [facility] Comment on above: Performed By: #### 5 8410-2 #### YASH BUTLER ([id number]) [facility] ([facility]) [address] [place], [place] [phone] MCH (RBC) [Entitic mass] 29.9 pg Normal 26.0-34.0 [facility] Comment on above: Performed By: #### 5 8410-2 #### YASH BUTLER ([id number]) [facility] ([facility]) [address] [place] [address] 77151 MCHC (RBC) [Mass/Vol] 33.6 g/dL Normal 32.0-36.0 [facility] Comment on above: Performed By: #### 5 8410-2 #### YASH BUTLER ([id number]) [facility] ([facility]) [address] [place], [place] [address] MCV (RBC) [Entitic vol] 89 fL Normal 80-100 [facility] Comment on above: Performed By: #### 5 8410-2 #### YASH BUTLER ([id number]) [facility] ([facility]) [address] [place], [place] [phone] Nucleated RBC/100 WBC (Bld) [Ratio] 0.0 /100 WBCs Normal 0.0-0.0 [facility] Comment on above: Performed By: #### 5 8410-2 #### YASH BUTLER ([id number]) [facility] ([facility]) [address] [place] [address] Platelets (Bld) [#/Vol] 207 x10*3/uL Normal 150-450 [facility] Comment on above: Performed By: #### 5 8410-2 #### YASH BUTLER ([id number]) [facility] ([facility]) [address] [place] [address] RBC (Bld) [#/Vol] 4.61 x10*6/uL Normal 4.00-5.20 [facility] Comment on above: Performed By: #### 5 8410-2 #### YASH BUTLER ([id number]) [facility] ([facility]) [address] [place] [address] WBC (Bld) [#/Vol] 7.8 x10*3/uL Normal 4.4-11.3 [facility] Comment on above: Performed By: #### 5 8410-2 #### YASH BUTLER ([id number]) [facility] ([facility]) [address] [place] [address] US Pelvis transvaginalon 1. Functional cyst left ovary. Otherwise unremarkable examination. No fibroid. MACRO: None Signed by: Clifton Martinez 07/05/2023 10:49 AM Dictation workstation: [id number] MMODAL Interpreted By: Clifton Martinez, STUDY: US PELVIS TRANSABDOMINAL WITH TRANSVAGINAL; 07/04/2023 2:34 pm INDICATION: Signs/Symptoms:Irregul ar bleeding. COMPARISON: None. ACCESSION NUMBER(S): [id number] ORDERING CLINICIAN: MARIA D ORTEGA TECHNIQUE: Multiple multiplanar static cantu scale, color and spectral waveform sonographic images of the pelvis were obtained. Transabdominal and endovaginal ultrasound was performed. FINDINGS: UTERUS: The uterus measures 8.7 x 4.5 x 4 cm. The uterine myometrium appears normal. ENDOMETRIUM: The endometrial thickness is 11 mm. RIGHT ADNEXA: The right ovary measures 2.8 x 2.0 x 1.8 cm and demonstrates normal flow. No gross right adnexal masses are seen, no hydrosalpinx. LEFT ADNEXA: The left ovary measures 3.5 x 2.9 x 1.8 cm and demonstrates normal flow. A simple cyst is seen measuring 2 x 1.8 x 1.0 cm. CUL DE SAC: No free fluid Clifton Fernández MD - 07/05/2023 Interpreted By: Clifton Martinez, STUDY: US PELVIS TRANSABDOMINAL WITH TRANSVAGINAL; 07/04/2023 2:34 pm INDICATION: Signs/Symptoms:Irregul ar bleeding. COMPARISON: None. ACCESSION NUMBER(S): [id number] ORDERING CLINICIAN: MARIA D ORTEGA TECHNIQUE: Multiple multiplanar static cantu scale, color and spectral waveform sonographic images of the pelvis were obtained. Transabdominal and endovaginal ultrasound was performed. FINDINGS: UTERUS: The uterus measures 8.7 x 4.5 x 4 cm. The uterine myometrium appears normal. ENDOMETRIUM: The endometrial thickness is 11 mm. RIGHT ADNEXA: The right ovary measures 2.8 x 2.0 x 1.8 cm and demonstrates normal flow. No gross right adnexal masses are seen, no hydrosalpinx. LEFT ADNEXA: The left ovary measures 3.5 x 2.9 x 1.8 cm and demonstrates normal flow. A simple cyst is seen measuring 2 x 1.8 x 1.0 cm. CUL DE SAC: No free fluid IMPRESSION: 1. Functional cyst left ovary. Otherwise unremarkable examination. No fibroid. MACRO: None Signed by: Clifton Martinez 07/05/2023 10:49 AM Dictation workstation: [id number] [facility] Work Phone: US Pelvis transvaginalOrdere d By: Clifton Martinez on 07-05-2023 [facility] Work Phone: US PELVIS TRANSABDOMINAL WIT H TRANSVAGINALon 07-04-2023 US PELVIS TRANSABDOMINAL WITH TRANSVAGINAL Interpreted By: Michelle, Clifton, STUDY: US PELVIS TRANSABDOMINAL WITH TRANSVAGINAL; 07/04/2023 2:34 pm INDICATION: Signs/Symptoms:Irregul ar bleeding. COMPARISON: None. ACCESSION NUMBER(S): [id number] ORDERING CLINICIAN: MARIA D ORTEGA TECHNIQUE: Multiple multiplanar static cantu scale, color and spectral waveform sonographic images of the pelvis were obtained. Transabdominal and endovaginal ultrasound was performed. FINDINGS: UTERUS: The uterus measures 8.7 x 4.5 x 4 cm. The uterine myometrium appears normal. ENDOMETRIUM: The endometrial thickness is 11 mm. RIGHT ADNEXA: The right ovary measures 2.8 x 2.0 x 1.8 cm and demonstrates normal flow. No gross right adnexal masses are seen, no hydrosalpinx. LEFT ADNEXA: The left ovary measures 3.5 x 2.9 x 1.8 cm and demonstrates normal flow. A simple cyst is seen measuring 2 x 1.8 x 1.0 cm. CUL DE SAC: No free fluid IMPRESSION: 1. Functional cyst left ovary. Otherwise unremarkable examination. No fibroid. MACRO: None Signed by: Clifton Martinez 07/05/2023 10:49 AM Dictation workstation: [id number] [facility] US Pelvis transvaginalon Radiology Study observation (narrative) [facility] Work Phone: ECHOon 04-18-2023 [facility] CTA Chest W/WO Contraston CTA Chest W/WO Contrast [facility] [address] [place] [address] CTA Chest W/WO Contrast MR#: [id number] Acct: [id number] Name: GAYLE THOMPSON Rep #: [id number] : 1990 F 32 From: Fabian Perez MD PCP: SHAHRIAR Linares Status: REG ER Study: CTA Chest W/WO Contrast Date of Exam: 03/11/23 Exam# [id number] Ordering Dr: Clark Krishnamurthy MD STUDY: CTA CHEST REASON FOR EXAM: Female, 32 years old. abnomal d-dimer RADIATION DOSAGE (If Supplied By Facility): CTDIvol = ( 12.66 ) mGy, DLP = ( 507.50 ) mGycm TECHNIQUE: The examination was performed with the intravenous administration of IV 100mL Isovue-370. Post-processing of the angiographic images was performed, with multiplanar reformation and 3D reconstruction. Individualized dose optimization techniques were used for this CT. COMPARISON: March 10, 2023. FINDINGS: Unremarkable thyroid Normal enhancement of the bilateral peripheral pulmonary arteries. There is no demonstrated pulmonary embolism. No main pulmonary arterial enlargement. Aortic atherosclerosis without ectasia. Normal heart and pericardium. No densely calcified coronary atherosclerosis. No mediastinal or hilar adenopathy. Unremarkable esophagus. No endobronchial lesion. No airspace consolidation, effusion, or pneumothorax. Mild dependent atelectasis.. Normal osseous structures. Hepatic Steatosis CT/CTA Chest W/WO Contrast IMPRESSION: No pulmonary embolism or evidence of acute airspace disease. Minimal dependent atelectasis. Electronically Signed: Fabian Perez MD at 1:38 EDT , CC: SHAHRIAR Blanc; Dr. Clark Krishnamurthy MD Plumbing Designer: Signed Normal [facility] Basic Metabolic Profile (BMP )on 03-10-2023 BUN/CRE 22.5 RATIO High 10-20 [facility] Comment on above: Order Comment: 1 Y Performed By: #### L 501.5425, L500.2500, L100.0100 #### [facility] [address] [place], [place], [id number] CA,Total 8.8 mg/dL Normal 8.5-10.1 [facility] Comment on above: Order Comment: 1 Y Performed By: #### L 501.5425, L500.2500, L100.0100 #### [facility] [address] [place], [address] Chloride [Moles/Vol] 109 mmol/L High 98-[address] [facility] Comment on above: Order Comment: 1 Y Performed By: #### L 501.5425, L500.2500, L100.0100 #### [facility] [address] [place], [address] CO2 [Moles/Vol] 28.0 mmol/L Normal 21.0-32.0 [facility] Comment on above: Order Comment: 1 Y Performed By: #### L 501.5425, L500.2500, L100.0100 #### [facility] [address] [place], [address] Creatinine [Mass/Vol] 0.84 mg/dL Normal 0.55-1.02 [facility] Comment on above: Order Comment: 1 Y Result Comment: The validity of the calculated GFR GFRAA in patients over 70 years has not been determined. Clinical correlation is essential. Performed By: #### L 501.5425, L500.2500, L100.0100 #### [facility] [address] [place], [address] ECRCL 98.79 ml/min Normal [facility] Comment on above: Order Comment: 1 Y Performed By: #### L 501.5425, L500.2500, L100.0100 #### [facility] [address] [place], [address] EST GFR - AA 102 mL/min Normal >60 [facility] Comment on above: Order Comment: 1 Y Result Comment: Afri can Sudanese GFR Calc Performed By: #### L 501.5425, L500.2500, L100.0100 #### [facility] [address] [place], [address] GAP 4 Low 5-15 [facility] Comment on above: Order Comment: 1 Y Performed By: #### L 501.5425, L500.2500, L100.0100 #### [facility] [address] [place], [address] GFR/1.73 sq M.predicted among non-blacks MDRD (S/P/Bld) [Vol rate/Area] 84 mL/min/{1.73_m2} Normal >60 [facility] Comment on above: Order Comment: 1 Y Result Comment: Non- GFR Calc Performed By: #### L 501.5425, L500.2500, L100.0100 #### [facility] [address] [place], [address] Glucose [Mass/Vol] 111 mg/dL High 74-106 [facility] Comment on above: Order Comment: 1 Y Result Comment: Fast ing Glucose result from 100 to 125 mg/dL suggests IMPAIRED HOMEOSTASIS per A.D.A. criteria. Performed By: #### L 501.5425, L500.2500, L100.0100 #### [facility] [address] [place], [address] Potassium [Moles/Vol] 3.9 mmol/L Normal 3.5-5.1 [facility] Comment on above: Order Comment: 1 Y Performed By: #### L 501.5425, L500.2500, L100.0100 #### [facility] [address] [place], [address] Sodium [Moles/Vol] 141 mmol/L Normal 136-145 [facility] Comment on above: Order Comment: 1 Y Performed By: #### L 501.5425, L500.2500, L100.0100 #### [facility] [address] [place], [address] Urea nitrogen [Mass/Vol] 19 mg/dL High 7-18 [facility] Comment on above: Order Comment: 1 Y Performed By: #### L 501.5425, L500.2500, L100.0100 #### [facility] [address] [place], [address] CBC W/Diff, Automatedon 07-2 -2022 Absolute Lymph 1.96 X10 3/uL Normal 0.83-4.51 [facility] Comment on above: Performed By: #### L 501.5425, L500.2500, L100.0100 #### [facility] [address] [place], [address] Absolute Neut 5.1 X10 3/uL Normal 2.0-7.7 [facility] Comment on above: Performed By: #### L 501.5425, L500.2500, L100.0100 #### [facility] [address] [place], [address] Basophils/100 WBC (Bld) 0.6 % Normal 0-1 [facility] Comment on above: Performed By: #### L 501.5425, L500.2500, L100.0100 #### [facility] [address] [place], [address] Eosinophils/100 WBC (Bld) 1.8 % Normal 0-5 [facility] Comment on above: Performed By: #### L 501.5425, L500.2500, L100.0100 #### [facility] [address] [place], [address] Erythrocyte distribution width (RBC) [Ratio] 12.9 % Normal 11.6-14.6 [facility] Comment on above: Performed By: #### L 501.5425, L500.2500, L100.0100 #### [facility] [address] [place], [address] Hematocrit (Bld) [Volume fraction] 41.5 % Normal 37-47 [facility] Comment on above: Performed By: #### L 501.5425, L500.2500, L100.0100 #### [facility] [address] [place], [address] Hemoglobin (Bld) [Mass/Vol] 14.0 g/dL Normal 12.0-15.0 [facility] Comment on above: Performed By: #### L 501.5425, L500.2500, L100.0100 #### [facility] [address] [place], [address] IG% 0.500 Normal 0.0-0.9 [facility] Comment on above: Result Comment: IG% - Immature Granulocytes (promyelocytes, myelocytes and metamyelocytes) > 1% indicates that a LEFT SHIFT is Present. Performed By: #### L 501.5425, L500.2500, L100.0100 #### [facility] [address] [place], [address] Lymphocytes/100 WBC (Bld) 24.9 % Normal 19-41 [facility] Comment on above: Performed By: #### L 501.5425, L500.2500, L100.0100 #### [facility] [address] [place], [address] MCH (RBC) [Entitic mass] 30.1 pg Normal 27.0-32.0 [facility] Comment on above: Performed By: #### L 501.5425, L500.2500, L100.0100 #### [facility] [address] [place], [address] MCHC (RBC) [Mass/Vol] 33.7 g/dL Normal 32-36 [facility] Comment on above: Performed By: #### L 501.5425, L500.2500, L100.0100 #### [facility] [address] [place], [address] MCV (RBC) [Entitic vol] 89.2 fL Normal 81-99 [facility] Comment on above: Performed By: #### L 501.5425, L500.2500, L100.0100 #### [facility] [address] [place], [address] Monocytes/100 WBC (Bld) 7.4 % Normal 0-10 [facility] Comment on above: Performed By: #### L 501.5425, L500.2500, L100.0100 #### [facility] [address] [place], [address] Neutrophils/100 WBC (Bld) 64.8 % Normal 47-70 [facility] Comment on above: Performed By: #### L 501.5425, L500.2500, L100.0100 #### [facility] [address] [place], [address] Nucleated RBC (Bld) [#/Vol] 0 10*3/uL Normal 0-5 [facility] Comment on above: Performed By: #### L 501.5425, L500.2500, L100.0100 #### [facility] [address] [place], [address] Platelet mean volume (Bld) [Entitic vol] 10.1 fL Normal 6.2-12.0 [facility] Comment on above: Performed By: #### L 501.5425, L500.2500, L100.0100 #### [facility] [address] [place], [address] Platelets (Bld) [#/Vol] 207 10*3/uL Normal 150-450 [facility] Comment on above: Performed By: #### L 501.5425, L500.2500, L100.0100 #### [facility] [address] [place], [address] RBC (Bld) [#/Vol] 4.65 10*6/uL Normal 4.2-5.4 [facility] Comment on above: Performed By: #### L 501.5425, L500.2500, L100.0100 #### [facility] [address] [place], [address] RDW SD 42.3 fl Normal 35.1-43.9 [facility] Comment on above: Performed By: #### L 501.5425, L500.2500, L100.0100 #### [facility] [address] [place], [address] WBC (Bld) [#/Vol] 7.9 10*3/uL Normal 4.4-11.0 [facility] Comment on above: Performed By: #### L 501.5425, L500.2500, L100.0100 #### [facility] [address] [place], [address] Chest 1 View (Portable)on Chest 1 View (Portable) [facility] Services [address] [place] [address] Chest 1 View (Portable) MR#: [id number] Acct: [id number] Name: GAYLE THOMPSON Rep #: [id number] : 1990 F 32 From: Kavon Chaney MD PCP: Care Physician,No Primary Status: PRE ER Study: Chest 1 View (Portable) Date of Exam: 03/10/23 Exam# [id number] Ordering Dr: Provider,Ed P. STUDY: X-RAY CHEST REASON FOR EXAM: Female, 32 years old. chest pain TECHNIQUE: AP portable COMPARISON: January 09, 2021. FINDINGS: The lungs are clear and expanded. There is no demonstrated pleural abnormality. Normal size heart. Normal mediastinum and alan. Normal visualized pulmonary arteries. Normal visualized aortic arch and descending thoracic aorta. Normal visualized thoracic spine. Normal visualized ribs, clavicles, and shoulders. There is no demonstrated abnormality of the visualized soft tissue structures of the upper abdomen. No significant change since prior study RAD/Chest 1 View (Portable) IMPRESSION: Normal x-ray examination of the chest. Electronically Signed: Kavon Chaney MD at 21:38 EDT , CC: ED PHYSICIAN PROVIDER; No Primary Care Physician Plumbing Designer: Signed Normal [facility] D-Dimer Quantitative (DVT/PE )on 03-10-2023 D-DIMER QUANT 0.68 FEU/ug/m Invalid Interpretation Code 0.27-0.49 [facility] Comment on above: Result Comment: D-Di leodan ELEVATED (>0.49): Additional studies and clinical assessments are indicated to conclude diagnosis of: Deep Vein Thrombosis (DVT) or Pulmonary Embolism (PE) CRITICAL VALUE VERIFIED. CALLED TO Shamika FUENTES RN ER 03/10/23 2352 Abdelrahman Steen. RESULTS READ BACK BY SAME. Performed By: #### L 300.8000 #### [facility] [address] [facility] [place], [address] Emergency Department Summary on 03-10-2023 Emergency Department Summary [facility] Medical Records Department [address] [place] [address] Emergency Department Summary 03/10/23 MR#: [id number] Acct: [id number] Name: GAYLE THOMPSON Rep #: [id number] : 1990 32 From: Clark Krishnamurthy MD PCP: SHAHRIAR Linares Status:REG ER Location: ED HPI History of Present Illness Chief Complaint: Chest Pain Detail of Chief Complaint: Palpitations and accelerated heart rate. Informant: patient and spouse/S.O. Onset/Context/Timing Onset: Today Activity at onset: sudden Timing: Intermittent Quality: Positive for Sharp Location: Left Chest Current Severity: Gone Maximum Severity: Mild Worsened By: Nothing Relieved By: Nothing Associated Symptoms: Negative for Nausea, Vomiting, Dyspnea, Cough, Fever, Lightheadedness or Acid Reflux Narrative Narrative: 32-year-old female history of anxiety and asthma. No prior DVT or PE. Recently tested [place] to and from [place] by driving. Tonight she had an episode where she said she started sweating and had a heart rate of 53 that went up to 132. She had some chest discomfort with it which is since resolved. No hemoptysis. No pleuritic pain. No leg pain or swelling. She has no cardiac history. Prior Similar Symptoms: No Recent Illness/Hospitalizatio n: No CVD Risk Factors: Negative for Hypertension, Diabetes, Hypercholesterolemia, Family History 1' or Smoking PE Risk Factors: Positive for Recent Travel/Surgery; Negative for Recent Immobilization, Prior DVT or PE, Cancer or OCP + Smoking + >/=35 TAD Risk Factors: Negative for Marfan's Syndrome PFSH PFS Medical History Anxiety Asthma Migraine headache Wears glasses Home Medications albuterol 90 mcg/actuation aerosol inhaler mcg inhalation PRN Wheezing 12/17/20 [History Last Taken Unknown] prednisone 20 mg tablet 20 mg PO BID #6 tabs 01/09/21 [Rx Last Taken Unknown] Allergy/AdvReac Type Severity Reaction Status Date / Time No Known Allergies Allergy Verified 03/10/23 21:15 Surgical History H/O wisdom tooth extraction Hx of foot surgery Social History Smoking Status: Never smoker ROS ROS ED ROS Narrative Accelerated heart rate. Atypical chest pain. Review of Systems ROS Unobtainable: Denies due to encephalopathy Constitutional Constitutional ED: Denies chills or fever(s) Eyes Eyes: Reports none ENT ENT ED: Denies ear pain Cardiovascular Cardiovascular: Reports as per HPI, chest pain, palpitations and racing heartbeat Respiratory/Chest Respiratory/Chest: Denies dyspnea Gastrointestinal Gastrointestinal: Denies abdominal pain Genitourinary Genitourinary ED: Denies dysuria or hematuria Musculoskeletal Musculoskeletal: Denies arthralgias, back pain, myalgias or neck pain Integumentary Denies abscess Neurologic Neurologic: Denies headache(s) Psychiatric Psychiatric: Denies anxiety Endocrine Endocrinology: Denies cold intolerance Hematologic/Lymphatic Hematologic/Lymphatic: Denies easy bleeding Allergic/Immunologic Allergic/Immunologic ED: Denies mouth swelling or tongue swelling EXAM Physical Exam Narrative Exam Narrative: 32-year-old female no acute distress. Vital signs stable afebrile. Pulse ox 98% on room air no signs hypoxia. H EENT exam unremarkable. Neck nontender no lymphadenopathy. No thyromegaly. Lungs clear to auscultation bilaterally. Heart regular rhythm rate in the 70s no murmur. Chest wall nontender. Abdomen soft nontender normal bowel sounds no peritoneal signs. Moves all 4 extremities. Calves are nontender without edema or cords. Equal symmetrical radial pulses. Neurologically she is awake and alert. Const Vital Signs: 03/10/23 21:16 03/10/23 21:17 03/10/23 21:15 Temperature 97.6 F L Temperature Source Temporal Pulse Rate 96 Respiratory Rate 16 Respiratory Effort Normal Non-Labored Blood Pressure 141/88 H Blood Pressure Mean 105 Pulse Ox 98 98 Oxygen Delivery Method Room Air 03/10/23 22:15 03/10/23 23:00 Temperature 102.4 F H Temperature Source Oral Pulse Rate 77 Respiratory Rate 14 Respiratory Effort Blood Pressure Blood Pressure Mean Pulse Ox 97 Oxygen Delivery Method Room Air Positive well nourished; Negative for cachectic, contractures or unkempt General Appearance ED: Negative for unkempt, cachectic, contractures or pallor Nutritional Appearance: Negative for cachectic HEENT Reports moist mucous membranes normocephalic and atraumatic; Negative for trauma or tenderness Eyes PERRL and EOMs intact bilaterally General Eye ED: Negative for pale conjunctiva, scleral icterus or other Neck no lymphadenopathy, supple an (more content not included)... Normal [facility] L501.5425on 03-10-2023 TROPONIN-I HS < 3 Low 3.0-54.0 [facility] Comment on above: Order Comment: 1 Y Result Comment: Millie lomeli Note: New Test Units and Gender Specific Reference Ranges. For more information see Policy Stat Procedure Igo High Sensitivity Troponin (TNIH) and attachments. Performed By: #### L 501.5425, L500.2500, L100.0100 #### [facility] [address] [place], [address] Basophil percentageon 2021 WBC (Bld) [#/Vol] 7.0 10*3/uL 4.4-11.0 [facility] Work Phone: Blood erythrocytes count (nu mber/volume)on 11-12-2021 RBC (Bld) [#/Vol] 4.91 10*6/uL 4.2-5.4 [facility] Work Phone: Blood hemoglobin measurement (mass/volume)on 11-12-2021 Hemoglobin (Bld) [Mass/Vol] 14.3 g/dL 12.0-15.0 [facility] Work Phone: [phone] Blood platelet mean volumeon 11-12-2021 Platelet mean volume (Bld) [Entitic vol] 10.8 fL 6.2-12.0 [facility] Work Phone: Determination of erythrocyte mean corpuscular volume (MCV)on 11-12-2021 MCV (RBC) [Entitic vol] 85.3 fL 81-99 [facility] Work Phone: [phone] Hematocrit Auto (Bld) [Volum e fraction]on 11-12-2021 Hematocrit (Bld) [Volume fraction] 41.9 % 37-47 [facility] Work Phone: Laboratory - Chemistry and C hemistry - challengeon 11-12-2021 Free T4 [Mass/Vol] 0.97 ng/dL 0.76-1.46 [facility] Work Phone: [phone] Laboratory - Hematology and Cell countson 11-12-2021 Erythrocyte distribution width (RBC) [Entitic vol] 39.3 fL 35.1-43.9 [facility] Work Phone: [phone] Erythrocyte distribution width (RBC) [Ratio] 12.7 % 11.6-14.6 [facility] Work Phone: [phone] MCH (RBC) [Entitic mass] 29.1 pg 27.0-32.0 [facility] Work Phone: [phone] MCHC Auto (RBC) [Mass/Vol]on 11-12-2021 MCHC (RBC) [Mass/Vol] 34.1 g/dL 32-36 [facility] Work Phone: No Panel Informationon 11-12 Follicle Stimulating Hormone 8.0 mIU/mL [facility] Work Phone: Comment on above: NORMAL REFERENCE RAN GES FEMALE FOLLICULAR 2.3 - 12.6 mIU/mL MID-CYCLE PEAK 5.2 - 17.5 mIU/mL LUTEAL 1.7 - 12.9 mIU/mL POST-MENOPAUSAL ON MHT 5.9 - 72.8 mIU/mL NOT ON MHT 12.7 - 132.2 mlU/mL MALE 0.7 - 10.8 mIU/mL Luteinizing Hormone 61.2 mIU/mL [facility] Work Phone: Comment on above: NORMAL REFERENCE RAN GES FEMALE FOLLICULAR 1.9 - 26.2 mIU/mL MID-CYCLE PEAK 22.8 - 76.1 mIU/mL LUTEAL 0.6 - 16.6 mIU/mL POST-MENOPAUSAL ON MHT 1.1 - 52.4 mIU/mL NOT ON MHT 8.6 - 61.8 mIU/mL MALE 1.2 - 10.6 mIU/mL Thyroid Stimulating Hormone (TSH) 1.35 uIU/mL 0.358-3.74 [facility] Work Phone: Platelets bldon 11-12-2021 Platelets (Bld) [#/Vol] 211 10*3/uL 150-450 [facility] Work Phone: Serum or plasma estradiol (E 2) measurement (mass/volume)on 11-12-2021 E2 [Mass/Vol] 191.0 pg/mL [facility] Work Phone: Comment on above: NORMAL REFERENCE RAN GES FEMALE FOLLICULAR 21.4 - 164.8 pg/mL MID-CYCLE PEAK 49.9 - 367.2 pg/mL LUTEAL 40.2 - 259.0 pg/mL POST-MENOPAUSAL ON MHT <11.0 - 462.1 pg/mL NOT ON MHT <11.0 - 58.3 pg/mL MALE <11.0 - 52.5 pg/mL NOTE:[employer] HAS CONFIRMED THE DRUG FULVETRANT (FASLODEX) MAY CAUSE FALSELY ELEVATED ESTRADIOL RESULTS WHEN USING THIS TEST METHOD. IF PATIENT IS TAKING FULVESTRANT AN ALTERNATIVE METHOD SHOULD BE USED TO DETERMINE ESTRADIOL CONCENTRATION. Serum or plasma prolactin me asurement (mass/volume)on 11-12-2021 Prolactin [Mass/Vol] 19.8 ng/mL [facility] Work Phone: Comment on above: NORMAL REFERENCE RAN GES FEMALE NON- 2.2 - 30.3 ng/mL 8.1 - 347.6 ng/mL POST-MENOPAUSAL 0.7 - 31.5 ng/mL MALE 2.5 - 17.4 ng/mL HEPATITIS B SURF ABon 2020 HEP B SURF AB 78.3 mIU/mL Normal <10 [facility] Comment on above: Order Comment: [facility] Result Comment: INTE RPRETIVE CRITERIA: <10 mIU/mL....NONREACTIVE >=10 mIU/mL...REACTIVE . Biotin interference may cause falsely decreased results. Patients taking a Biotin dose of up to 5 mg/day should refrain from taking Biotin for 24 hours before sample collection. Providers may contact their local laboratory for further information. Performed By: #### H BAB3 #### [facility] [address] [place] [id number] HEPATITIS C ABon 06-22-2021 HEPATITIS C AB Non-Reactive Normal NONREACTIVE [facility] Comment on above: Order Comment: [facility] Result Comment: Resu lts from patients taking biotin supplements or receiving high-dose biotin therapy should be interpreted with caution due to possible interference with this test. Providers may contact their local laboratory for further information. Performed By: #### H CVAB #### [facility] [address] [place] [address] RAPID HIVon 06-21-2021 RAPID HIV Non-Reactive Normal NONREACTIVE [facility] Comment on above: Order Comment: [facility] Result Comment: Biot in may cause falsely negative p24 antigen results leading to decreased detection of early HIV infection. Patients taking supplements containing biotin should be tested by the HIV 1/2 Antigen/Antibody Screen with Reflex. Providers may contact their local laboratory for further information. Performed By: #### R HIV #### [facility] [address] [place] [address] Lab Specimen Source [facility] Comment on above: Order Comment: [facility] CNP Performed By: #### R HIV #### [facility] [address] [place] [address] Performed By: #### H BAB3 #### [facility] [address] [place] [address] Performed By: #### H CVAB #### [facility] [address] [place] [address] CHEST 1 VIEWon 12-21-2020 CHEST 1 VIEW Patient Name: GAYLE THOMPSON STUDY: Chest dated 12/21/2020. INDICATION: [facility] DEPARTMENT PHYSICAL COMPARISON: None. ACCESSION NUMBER(S): [id number] ORDERING CLINICIAN: ELAN BALLESTEROS TECHNIQUE: PA upright radiograph of the chest. FINDINGS: The lungs are clear. No pneumothorax or effusion is evident. The cardiomediastinal silhouette is not enlarged. The soft tissues are grossly unremarkable. IMPRESSION: No acute cardiopulmonary process is evident. Electronically signed by: ISSA MIRELES MD Normal [facility] XR ACUTE ABD SERIES 2V ABD+C XRon 10-22-2020 XR ACUTE ABD SERIES 2V ABD+CXR Final Report DATE OF EXAM: Oct 22 2020 12:23PM LDX 5359 - XR ACUTE ABD SERIES 2V ABD+CXR / PROCEDURE REASON: Abd pain, unspecified Physician Interpretation ACUTE ABDOMINAL SERIES WITH CHEST HISTORY: Abd pain, unspecified TECHNIQUE: Chest: Frontal Abdomen: AP supine and upright views. COMPARISON: None available. RESULT: Lines/tubes/devices: None visualized. Heart/mediastinum: Within normal limits. Lungs/pleura: Clear. Abdomen: Nonobstructive bowel gas pattern. No abnormal calcifications. No free air. Bones: Unremarkable. IMPRESSION: 1. No active disease in the chest. 2. No acute findings in the abdomen. Plumbing Designer: GER Transcribe Date/Time: Oct 22 2020 12:54P Dictated by : CIARA BONILLA MD This examination was interpreted and the report reviewed and electronically signed by: CIARA BONILLA MD on Oct 22 2020 12:58PM EST Normal [facility] US FEMALE PELVIS TRANSABD LT Don 10-10-2020 US FEMALE PELVIS TRANSABD LTD Final Report DATE OF EXAM: Oct 10 2020 6:09PM LDU 1059 - US FEMALE PELVIS TRANSABD LTD / PROCEDURE REASON: Torsion of ovary and ovarian pedicle Physician Interpretation EXAMINATION: TRANSVAGINAL AND LIMITED TRANSABDOMINAL PELVIC ULTRASOUND CLINICAL HISTORY: Intrauterine device location. TECHNIQUE: Sonography of the pelvis was performed by transvaginal and transabdominal (limited) techniques. Images were obtained and stored in a permanent archive. MQ: UFP_1 COMPARISON: 09/02/2020 CT abdomen/pelvis. 10/10/2020 KUB RESULT: Uterus size: 8.5 x 4.3 x 5.4 cm -Orientation: Anteverted -Myometrium: Normal sonographic appearance. -Endometrial echo complex: 0.3 cm -Cervix: normal Right ovary: 3.9 x 2.5 x 2.0 cm Normal sonographic appearance. Left ovary: 3.0 x 2.3 x 1.8 cm Normal sonographic appearance. Previously noted 3.2 cm left adnexal cyst is no longer seen. Pelvis free fluid: None. IMPRESSION: 1. Intrauterine device is not definitely seen within the uterine cavity. It is also not seen on the corresponding KUB as it was present on 09/02/2020 CT pelvis 2.Previously noted 3.2 cm left adnexal cyst is no longer seen. Plumbing Designer: [facility] Transcribe Date/Time: Oct 10 2020 6:51P Dictated by : CONCEPCION SANTIAGO MD This examination was interpreted and the report reviewed and electronically signed by: CONCEPCION SANTIAGO MD on Oct 10 2020 6:59PM EST Normal [facility] US FEMALE PELVIS TRANSVAGon 10-10-2020 US FEMALE PELVIS TRANSVAG Final Report DATE OF EXAM: Oct 10 2020 10:00AM LDU 1060 - US FEMALE PELVIS TRANSVAG / PROCEDURE REASON: IUD location Physician Interpretation EXAMINATION: TRANSVAGINAL AND LIMITED TRANSABDOMINAL PELVIC ULTRASOUND CLINICAL HISTORY: Intrauterine device location. TECHNIQUE: Sonography of the pelvis was performed by transvaginal and transabdominal (limited) techniques. Images were obtained and stored in a permanent archive. MQ: UFP_1 COMPARISON: 09/02/2020 CT abdomen/pelvis. 10/10/2020 KUB RESULT: Uterus size: 8.5 x 4.3 x 5.4 cm -Orientation: Anteverted -Myometrium: Normal sonographic appearance. -Endometrial echo complex: 0.3 cm -Cervix: normal Right ovary: 3.9 x 2.5 x 2.0 cm Normal sonographic appearance. Left ovary: 3.0 x 2.3 x 1.8 cm Normal sonographic appearance. Previously noted 3.2 cm left adnexal cyst is no longer seen. Pelvis free fluid: None. IMPRESSION: 1. Intrauterine device is not definitely seen within the uterine cavity. It is also not seen on the corresponding KUB as it was present on 09/02/2020 CT pelvis 2.Previously noted 3.2 cm left adnexal cyst is no longer seen. Plumbing Designer: jose Transcribe Date/Time: Oct 22 2020 11:31A Dictated by : CONCEPCION SANTIAGO MD This examination was interpreted and the report reviewed and electronically signed by: CONCEPCION SANTIAGO MD on Oct 22 2020 11:48AM EST Normal [facility] XR ABD 2V SUPINE W UPR/DECUB /CTLon 10-10-2020 XR ABD 2V SUPINE W UPR/DECUB/CTL Final Report DATE OF EXAM: Oct 10 2020 6:23PM LDX 5356 - XR ABD 2V SUPINE W UPR/DECUB/CTL / PROCEDURE REASON: Post-operative / post-procedure assessment, symptomatic Physician Interpretation Abdomen supine: HISTORY: Indication: Intrauterine device location TECHNIQUE: Views obtained: XR ABD 2V SUPINE W UPR/DECUB/CTL Comparison: 09/02/2020 CT abdomen/pelvis. 09/25/2020 RESULT: Previously noted intrauterine device is no longer seen No abnormal calcifications are seen. The bowel gas pattern is nonspecific and unremarkable.. No bony abnormalities are seen IMPRESSION: Previously noted intrauterine device is no longer seen Plumbing Designer: GER Transcribe Date/Time: Oct 10 2020 6:59P Dictated by : CONCEPCION SANTIAGO MD This examination was interpreted and the report reviewed and electronically signed by: CONCEPCION SANTIAGO MD on Oct 10 2020 6:59PM EST Normal [facility] No Panel Information [facility] Vital Signs Date Time Vital Sign Value Performing Clinician Facility 05-02-2025 08:05-0400 Body height 172.7 cm Noelle Queden CLINICAL INFORMATICS SPEC.DIE DRAWING CHECKER Work Phone: [facility] 05-02-2025 08:05-0400 Body mass index (BMI) [Ratio] 36.04 kg/m2 Noelle Queden CL[employer]ICAL INFORMATICS SPEC.DIE DRAWING CHECKER Work Phone: [facility] 05-02-2025 08:05-0400 Body temperature 97.59 [degF] Noelle Queden CLINICAL INFORMATICS SPEC.DIE DRAWING CHECKER Work Phone: [facility] 05-02-2025 08:05-0400 Body weight 107.5 kg Noelle Queden CLINICAL INFORMATICS SPEC.DIE DRAWING CHECKER Work Phone: [facility] 05-02-2025 08:05-0400 Diastolic blood pressure 62 mm[Hg] Noelle Queden CLINICAL INFORMATICS SPEC.DIE DRAWING CHECKER Work Phone: [facility] 05-02-2025 08:05-0400 Heart rate 64 /min Noelle Queden CL[employer]ICAL INFORMATICS SPEC.DIE DRAWING CHECKER Work Phone: [facility] 05-02-2025 08:05-0400 Respiratory rate 17 /min Noelle Queden CLINICAL INFORMATICS SPEC.DIE DRAWING CHECKER Work Phone: [facility] 05-02-2025 08:05-0400 SaO2% (BldA) [Mass fraction] 99 % Noelle Queden CLINICAL INFORMATICS SPEC.DIE DRAWING CHECKER Work Phone: [facility] 05-02-2025 08:05-0400 Systolic blood pressure 122 mm[Hg] Noelle Queden CLINICAL INFORMATICS SPEC.DIE DRAWING CHECKER Work Phone: [facility] 04-24-2025 13:52-0400 Body height 172.7 cm Amarjit Storey DPM Work Phone: [facility] 04-24-2025 13:52-0400 Body mass index (BMI) [Ratio] 37.1 kg/m2 Amarjit Storey DPM Work Phone: [facility] 04-24-2025 13:52-0400 Body weight 110.68 kg Amarjit Storey DPM Work Phone: [facility] 04-24-2025 13:52-0400 Respiratory rate 18 /min Amarjit Storey DPM Work Phone: [facility] 04-11-2025 07:56-0400 Body height 172.7 cm Noelle Queden CLINICAL INFORMATICS SPEC.DIE DRAWING CHECKER Work Phone: [facility] 04-11-2025 07:56-0400 Body mass index (BMI) [Ratio] 37.1 kg/m2 Noelle Queden CLINICAL INFORMATICS SPEC.DIE DRAWING CHECKER Work Phone: [facility] 04-11-2025 07:56-0400 Body temperature 98.1 [degF] Noelle Queden CLINICAL INFORMATICS SPEC.DIE DRAWING CHECKER Work Phone: [facility] 04-11-2025 07:56-0400 Body weight 110.68 kg Noelle Queden CLINICAL INFORMATICS SPEC.DIE DRAWING CHECKER Work Phone: [facility] 04-11-2025 07:56-0400 Diastolic blood pressure 64 mm[Hg] Noelle Queden CLINICAL INFORMATICS SPEC.DIE DRAWING CHECKER Work Phone: [facility] 04-11-2025 07:56-0400 Heart rate 67 /min Noelle Queden CLINICAL INFORMATICS SPEC.DIE DRAWING CHECKER Work Phone: [facility] 04-11-2025 07:56-0400 Respiratory rate 19 /min Noelle Queden CLINICAL INFORMATICS SPEC.DIE DRAWING CHECKER Work Phone: [facility] 04-11-2025 07:56-0400 SaO2% (BldA) [Mass fraction] 99 % Noelle Queden CLINICAL INFORMATICS SPEC.DIE DRAWING CHECKER Work Phone: [facility] 04-11-2025 07:56-0400 Systolic blood pressure 122 mm[Hg] Noelle Queden CLINICAL INFORMATICS SPEC.DIE DRAWING CHECKER Work Phone: [facility] 03-18-2025 08:01-0400 Body height 172.7 cm Noelle Queden CLINICAL INFORMATICS SPEC.DIE DRAWING CHECKER Work Phone: [facility] 03-18-2025 08:01-0400 Body mass index (BMI) [Ratio] 36.1 kg/m2 Noelle Queden CLINICAL INFORMATICS SPEC.DIE DRAWING CHECKER Work Phone: [facility] 03-18-2025 08:01-0400 Body temperature 97.9 [degF] Noelle Queden CLINICAL INFORMATICS SPEC.DIE DRAWING CHECKER Work Phone: [facility] 03-18-2025 08:01-0400 Body weight 107.68 kg Noelle Queden CLINICAL INFORMATICS SPEC.DIE DRAWING CHECKER Work Phone: [facility] 03-18-2025 08:01-0400 Diastolic blood pressure 70 mm[Hg] Noelle Queden CLINICAL INFORMATICS SPEC.DIE DRAWING CHECKER Work Phone: [facility] 03-18-2025 08:01-0400 Heart rate 75 /min Noelle Queden CLINICAL INFORMATICS SPEC.DIE DRAWING CHECKER Work Phone: [facility] 03-18-2025 08:01-0400 Respiratory rate 18 /min Noelle Queden CLINICAL INFORMATICS SPEC.DIE DRAWING CHECKER Work Phone: [facility] 03-18-2025 08:01-0400 SaO2% (BldA) [Mass fraction] 97 % Noelle Queden CLINICAL INFORMATICS SPEC.DIE DRAWING CHECKER Work Phone: [facility] 03-18-2025 08:01-0400 Systolic blood pressure 118 mm[Hg] Noelle Queden CLINICAL INFORMATICS SPEC.DIE DRAWING CHECKER Work Phone: [facility] 03-12-2025 07:55-0400 Body height 172.7 cm Amarjit Storey DPM Work Phone: [facility] 03-12-2025 07:55-0400 Body mass index (BMI) [Ratio] 36.34 kg/m2 Amarjit Cordelia DPM Work Phone: [facility] 03-12-2025 07:55-0400 Body weight 108.41 kg Amarjit Artisman DPM Work Phone: [facility] 03-12-2025 07:55-0400 Respiratory rate 18 /min Amarjit Cordelia DPM Work Phone: [facility] 12-11-2024 09:19-0400 Body height 172.7 cm Amarjit Cordelia DPM Work Phone: [facility] 12-11-2024 09:19-0400 Body mass index (BMI) [Ratio] 36.34 kg/m2 Amarjit Cordelia DPM Work Phone: [facility] 12-11-2024 09:19-0400 Body weight 108.41 kg Amarjit Ocrdelia DPM Work Phone: [facility] 12-11-2024 09:19-0400 Respiratory rate 17 /min Amarjit Cordelia DPM Work Phone: [facility] 11-07-2024 11:19-0400 Body height 172.7 cm Noelle Queden CLINICAL INFORMATICS SPEC.DIE DRAWING CHECKER Work Phone: [facility] 11-07-2024 11:19-0400 Body mass index (BMI) [Ratio] 36.34 kg/m2 Noelle Queden CLINICAL INFORMATICS SPEC.DIE DRAWING CHECKER Work Phone: [facility] 11-07-2024 11:19-0400 Body temperature 97.81 [degF] Noelle Queden CLINICAL INFORMATICS SPEC.DIE DRAWING CHECKER Work Phone: [facility] 11-07-2024 11:19-0400 Body weight 108.41 kg Noelle Queden CLINICAL INFORMATICS SPEC.DIE DRAWING CHECKER Work Phone: [facility] 11-07-2024 11:19-0400 Diastolic blood pressure 64 mm[Hg] Noelle Queden CLINICAL INFORMATICS SPEC.DIE DRAWING CHECKER Work Phone: [facility] 11-07-2024 11:19-0400 Heart rate 64 /min Noelle Queden CLINICAL INFORMATICS SPEC.DIE DRAWING CHECKER Work Phone: [facility] 11-07-2024 11:19-0400 Respiratory rate 19 /min Noelle Queden CLINICAL INFORMATICS SPEC.DIE DRAWING CHECKER Work Phone: [facility] 11-07-2024 11:19-0400 SaO2% (BldA) [Mass fraction] 98 % Noelle Blanc CLINICAL INFORMATICS SPEC.DIE DRAWING CHECKER Work Phone: [facility] 11-07-2024 11:19-0400 Systolic blood pressure 118 mm[Hg] Noelle Blanc CLINICAL INFORMATICS SPEC.DIE DRAWING CHECKER Work Phone: [facility] 11-06-2024 10:54-0400 Body height 172.7 cm Amarjit Cordelia DPM Work Phone: [facility] 11-06-2024 10:54-0400 Body mass index (BMI) [Ratio] 36.34 kg/m2 Amarjit Cordelia DPM Work Phone: [facility] 11-06-2024 10:54-0400 Body weight 108.41 kg Amarjit Cordelia DPM Work Phone: [facility] 11-06-2024 10:54-0400 Respiratory rate 17 /min Amarjit Cordelia DPM Work Phone: [facility] 10-09-2024 11:07-0500 Body height 172.7 cm Amarjit Cordelia DPM Work Phone: [facility] 10-09-2024 11:07-0500 Body mass index (BMI) [Ratio] 36.34 kg/m2 Amarjit Cordelia DPM Work Phone: [facility] 10-09-2024 11:07-0500 Body weight 108.41 kg Amarjit Cordelia DPM Work Phone: [facility] 10-09-2024 11:07-0500 Respiratory rate 20 /min Amarjit Cordelia DPM Work Phone: [facility] 09-18-2024 10:53-0500 Body height 172.7 cm Amarjit Cordelia DPM Work Phone: [facility] 09-18-2024 10:53-0500 Body mass index (BMI) [Ratio] 36.34 kg/m2 Amarjit Cordelia DPM Work Phone: [facility] 09-18-2024 10:53-0500 Body weight 108.41 kg Amarjit Cordelia DPM Work Phone: [facility] 09-18-2024 10:53-0500 Respiratory rate 18 /min Amarjit Cordelia DPM Work Phone: [facility] 09-04-2024 07:50-0500 Body height 172.7 cm Amarjit Cordelia DPM Work Phone: [facility] 09-04-2024 07:50-0500 Body mass index (BMI) [Ratio] 36.34 kg/m2 Amarjit Cordelia DPM Work Phone: [facility] 09-04-2024 07:50-0500 Body weight 108.41 kg Amarjit Cordelia DPM Work Phone: [facility] 09-04-2024 07:50-0500 Respiratory rate 20 /min Amarjit Cordelia DPM Work Phone: [facility] 08-28-2024 10:50-0500 Body height 172.7 cm Amarjit Cordelia DPM Work Phone: [facility] 08-28-2024 10:50-0500 Body mass index (BMI) [Ratio] 36.34 kg/m2 Amarjit Cordelia DPM Work Phone: [facility] 08-28-2024 10:50-0500 Body weight 108.41 kg Amarjit Cordelia DPM Work Phone: [facility] 08-28-2024 10:50-0500 Respiratory rate 20 /min Amarjit Cordelia DPM Work Phone: [facility] 08-23-2024 13:52-0500 Body height 172.7 cm Amarjit Cordelia DPM Work Phone: [facility] 08-23-2024 13:52-0500 Body mass index (BMI) [Ratio] 36.34 kg/m2 Amarjit Cordelia DPM Work Phone: [facility] 08-23-2024 13:52-0500 Body weight 108.41 kg Amarjit Cordelia DPM Work Phone: [facility] [facility] 08-23-2024 13:52-0500 Respiratory rate 16 /min Amarjit Cordelia ALLY Work Phone: [facility] 08-08-2024 11:05-0500 Body height 172.7 cm Pst 1 [facility] 08-08-2024 11:05-0500 Body mass index (BMI) [Ratio] 36.64 kg/m2 Pst 1 [facility] 08-08-2024 11:05-0500 Body temperature 98.2 [degF] Pst 1 [facility] [place] 08-08-2024 11:05-0500 Body weight 109.32 kg Pst 1 [facility] 08-08-2024 11:05-0500 Diastolic blood pressure 82 mm[Hg] Pst 1 [facility] 08-08-2024 11:05-0500 Heart rate 80 /min Pst 1 [facility] 08-08-2024 11:05-0500 Respiratory rate 16 /min Pst 1 [facility] [place] 08-08-2024 11:05-0500 SaO2% (BldA) [Mass fraction] 96 % Pst 1 [facility] 08-08-2024 11:05-0500 Systolic blood pressure 121 mm[Hg] Pst 1 [facility] 06-04-2024 09:57-0400 Body height 172.7 cm Lyle Sykes APRN.DIE DRAWING CHECKER Work Phone: [facility] 06-04-2024 09:57-0400 Body mass index (BMI) [Ratio] 36.28 kg/m2 Lyle Sykes APRN.DIE DRAWING CHECKER Work Phone: [facility] 06-04-2024 09:57-0400 Body weight 108.23 kg Lyle Sykes CLINICAL INFORMATICS SPEC.DIE DRAWING CHECKER Work Phone: [facility] 06-04-2024 09:57-0400 Diastolic blood pressure 82 mm[Hg] Lyle Hasjaiden OJEDAN.DIE DRAWING CHECKER Work Phone: [facility] 06-04-2024 09:57-0400 Heart rate 86 /min Lyle Sykes APRN.DIE DRAWING CHECKER Work Phone: [facility] 06-04-2024 09:57-0400 SaO2% (BldA) [Mass fraction] 97 % Lyle Sykes CLINICAL INFORMATICS SPEC.DIE DRAWING CHECKER Work Phone: [facility] 06-04-2024 09:57-0400 Systolic blood pressure 110 mm[Hg] Lyle Sykes CLINICAL INFORMATICS SPEC.DIE DRAWING CHECKER Work Phone: [facility] 05-02-2024 11:32-0400 Body height 172.7 cm Amarjit Cordelia DPM Work Phone: [facility] 05-02-2024 11:32-0400 Body mass index (BMI) [Ratio] 35.58 kg/m2 Amarjit Cordelia DPM Work Phone: [facility] 05-02-2024 11:32-0400 Body weight 106.14 kg Amarjit Cordelia DPM Work Phone: [facility] 05-02-2024 11:32-0400 Respiratory rate 17 /min Amarjit Cordelia DPM Work Phone: [facility] 04-04-2024 13:37-0400 Body height 172.7 cm Amarjit Cordelia DPM Work Phone: [facility] 04-04-2024 13:37-0400 Body mass index (BMI) [Ratio] 35.58 kg/m2 Amarjit Cordelia DPM Work Phone: [facility] 04-04-2024 13:37-0400 Body weight 106.14 kg Amarjit Cordelia DPM Work Phone: [facility] 04-04-2024 13:37-0400 Respiratory rate 16 /min Amarjit Cordelia DPM Work Phone: [facility] 03-28-2024 10:37-0400 Body height 172.7 cm Amarjit Cordelia DPM Work Phone: [facility] 03-28-2024 10:37-0400 Body mass index (BMI) [Ratio] 35.58 kg/m2 Amarjit Cordelia DPM Work Phone: [facility] 03-28-2024 10:37-0400 Body weight 106.14 kg Amarjit Cordelia DPM Work Phone: [facility] 03-28-2024 10:37-0400 Respiratory rate 20 /min Amarjit Storey DPVivian Work Phone: [facility] 03-01-2024 13:03-0400 Body height 172.7 cm Noelle Queden CLINICAL INFORMATICS SPEC.DIE DRAWING CHECKER Work Phone: [facility] 03-01-2024 13:03-0400 Body mass index (BMI) [Ratio] 35.58 kg/m2 Noelle Queden CLINICAL INFORMATICS SPEC.DIE DRAWING CHECKER Work Phone: [facility] 03-01-2024 13:03-0400 Body temperature 97.81 [degF] Noelle Queden CLINICAL INFORMATICS SPEC.[facility] Work Phone: [facility] 03-01-2024 13:03-0400 Body weight 106.14 kg Noelle Queden CLINICAL INFORMATICS SPEC.[facility] Work Phone: [facility] 03-01-2024 13:03-0400 Diastolic blood pressure 72 mm[Hg] Noelle Queden CLINICAL INFORMATICS SPEC.DIE DRAWING CHECKER Work Phone: [facility] 03-01-2024 13:03-0400 Heart rate 79 /min Noelle Queden CLINICAL INFORMATICS SPEC.[facility] Work Phone: [facility] 03-01-2024 13:03-0400 Respiratory rate 16 /min Noelle Queden CLINICAL INFORMATICS SPEC.DIE DRAWING CHECKER Work Phone: [facility] 03-01-2024 13:03-0400 SaO2% (BldA) [Mass fraction] 98 % Noelle Queden CLINICAL INFORMATICS SPEC.DIE DRAWING CHECKER Work Phone: [facility] 03-01-2024 13:03-0400 Systolic blood pressure 108 mm[Hg] Noelle Queden CLINICAL INFORMATICS SPEC.[facility] Work Phone: [facility] 12-26-2023 13:56-0400 Body height 172.7 cm Noelle Queden CLINICAL INFORMATICS SPEC.DIE DRAWING CHECKER Work Phone: [facility] 12-26-2023 13:56-0400 Body mass index (BMI) [Ratio] 36.64 kg/m2 Noelle Queden CLINICAL INFORMATICS SPEC.DIE DRAWING CHECKER Work Phone: [facility] 12-26-2023 13:56-0400 Body temperature 98.29 [degF] Noelle Queden CLINICAL INFORMATICS SPEC.DIE DRAWING CHECKER Work Phone: [facility] 12-26-2023 13:56-0400 Body weight 109.32 kg Noelle Queden CLINICAL INFORMATICS SPEC.DIE DRAWING CHECKER Work Phone: [facility] 12-26-2023 13:56-0400 Diastolic blood pressure 64 mm[Hg] Noelle Queden CLINICAL INFORMATICS SPEC.DIE DRAWING CHECKER Work Phone: [facility] 12-26-2023 13:56-0400 Heart rate 83 /min Noelle Queden CLINICAL INFORMATICS SPEC.DIE DRAWING CHECKER Work Phone: [facility] 12-26-2023 13:56-0400 Respiratory rate 16 /min Noelle Queden CLINICAL INFORMATICS SPEC.DIE DRAWING CHECKER Work Phone: [facility] 12-26-2023 13:56-0400 SaO2% (BldA) [Mass fraction] 99 % Noelle Queden CLINICAL INFORMATICS SPEC.DIE DRAWING CHECKER Work Phone: [facility] 12-26-2023 13:56-0400 Systolic blood pressure 112 mm[Hg] Noelle Queden CLINICAL INFORMATICS SPEC.DIE DRAWING CHECKER Work Phone: [facility] 12-21-2023 09:49-0400 Body height 172.7 cm Amarjit Cordelia DPM Work Phone: [facility] 12-21-2023 09:49-0400 Body mass index (BMI) [Ratio] 35.58 kg/m2 Amarjit Cordelia DPM Work Phone: [facility] 12-21-2023 09:49-0400 Body weight 106.14 kg Amarjit Cordelia DPM Work Phone: [facility] 12-21-2023 09:49-0400 Respiratory rate 18 /min Amarjit Artisman DPM Work Phone: [facility] 11-08-2023 10:51-0400 Body height 172.7 cm Amarjit Cordelia DPM Work Phone: [facility] 11-08-2023 10:51-0400 Body weight 106.14 kg Amarjit Cordelia DPM Work Phone: [facility] 11-08-2023 10:51-0400 Respiratory rate 18 /min Amarjit Cordelia DPM Work Phone: [facility] 11-02-2023 09:29-0400 Body height 172.7 cm Amarjit Cordelia DPM Work Phone: [facility] 11-02-2023 09:290400 Body weight 106.14 kg Amarjit Cordelia DPM Work Phone: [facility] 11-02-2023 09:29-0400 Respiratory rate 16 /min Amarjit Cordelia DPM Work Phone: [facility] 10-26-2023 08:55-0500 Body height 172.7 cm Mariela Fried CLINICAL INFORMATICS SPEC-CNM, CLINICAL INFORMATICS SPEC-DIE DRAWING CHECKER, [facility] 10-26-2023 08:55-0500 Body mass index (BMI) [Ratio] 36.87 kg/m2 Mariela Fried CLINICAL INFORMATICS SPEC-CNM, CLINICAL INFORMATICS SPEC-DIE DRAWING CHECKER, [facility] 10-26-2023 08:55-0500 Body weight 110 kg Mariela Fried CLINICAL INFORMATICS SPEC-CNM, CLINICAL INFORMATICS SPEC-DIE DRAWING CHECKER, [facility] 10-26-2023 08:55-0500 Diastolic blood pressure 72 mm[Hg] Mariela Fried CLINICAL INFORMATICS SPEC-CNM, CLINICAL INFORMATICS SPEC-DIE DRAWING CHECKER, [facility] 10-26-2023 08:55-0500 Systolic blood pressure 106 mm[Hg] Mariela Fried CLINICAL INFORMATICS SPEC-CNM, CLINICAL INFORMATICS SPEC-DIE DRAWING CHECKER, [facility] 10-17-2023 10:23-0500 Body height 172.7 cm Pst 1 [facility] 10-17-2023 10:23-0500 Body temperature 99.1 [degF] Pst 1 [facility] 10-17-2023 10:23-0500 Body weight 106.14 kg Pst 1 [facility] 10-17-2023 10:23-0500 Diastolic blood pressure 84 mm[Hg] Pst 1 [facility] 10-17-2023 10:23-0500 Heart rate 74 /min Pst 1 [facility] 10-17-2023 10:23-0500 Respiratory rate 16 /min Pst 1 [facility] [place] 10-17-2023 10:23-0500 SaO2% (BldA) [Mass fraction] 98 % Pst 1 [facility] 10-17-2023 10:23-0500 Systolic blood pressure 109 mm[Hg] Pst 1 [facility] 10-12-2023 14:00-0500 Body height 172.7 cm Noelle Queden CLINICAL INFORMATICS SPEC.DIE DRAWING CHECKER Work Phone: [facility] 10-12-2023 14:00-0500 Body temperature 98.01 [degF] Noelle Queden CLINICAL INFORMATICS SPEC.DIE DRAWING CHECKER Work Phone: [facility] 10-12-2023 14:00-0500 Body weight 108.86 kg Noelle Queden CLINICAL INFORMATICS SPEC.DIE DRAWING CHECKER Work Phone: [facility] 10-12-2023 14:00-0500 Diastolic blood pressure 72 mm[Hg] Noelle Queden CLINICAL INFORMATICS SPEC.DIE DRAWING CHECKER Work Phone: [facility] 10-12-2023 14:00-0500 Heart rate 79 /min Noelle Queden CLINICAL INFORMATICS SPEC.DIE DRAWING CHECKER Work Phone: [facility] 10-12-2023 14:00-0500 Respiratory rate 18 /min Noelle Queden CLINICAL INFORMATICS SPEC.DIE DRAWING CHECKER Work Phone: [facility] 10-12-2023 14:00-0500 SaO2% (BldA) [Mass fraction] 96 % Noelle Queden CLINICAL INFORMATICS SPEC.DIE DRAWING CHECKER Work Phone: [facility] 10-12-2023 14:00-0500 Systolic blood pressure 122 mm[Hg] Noelle Queden CLINICAL INFORMATICS SPEC.DIE DRAWING CHECKER Work Phone: [facility] 09-06-2023 09:10-0500 Body mass index (BMI) [Ratio] 36.92 kg/m2 Maria D Ortega MD [facility] 09-06-2023 09:10-0500 Body weight 110.13 kg Maria D Ortega MD [facility] 09-06-2023 09:10-0500 Diastolic blood pressure 74 mm[Hg] Maria D Ortega MD [facility] 09-06-2023 09:10-0500 Systolic blood pressure 104 mm[Hg] Maria D Ortega MD [facility] 08-31-2023 14:50-0500 Body temperature 97 [degF] Maria D rOtega MD Work Phone: [facility] 08-31-2023 14:50-0500 Diastolic blood pressure 79 mm[Hg] Maria D Ortega MD Work Phone: [facility] 08-31-2023 14:50-0500 Heart rate 55 /min Maria D Ortega MD Work Phone: [facility] 08-31-2023 14:50-0500 Respiratory rate 16 /min Maria D Ortega MD Work Phone: [facility] 08-31-2023 14:50-0500 SaO2% (BldA) [Mass fraction] 95 % Maria D Ortega MD Work Phone: [facility] 08-31-2023 14:50-0500 Systolic blood pressure 114 mm[Hg] Maria D Ortega MD Work Phone: [facility] 08-31-2023 11:35-0500 Body height 172.7 cm Maria D Ortega MD Work Phone: [facility] 08-31-2023 11:35-0500 Body mass index (BMI) [Ratio] 35.53 kg/m2 Maria D Ortega MD Work Phone: [facility] 08-31-2023 11:35-0500 Body weight 106 kg Maria D Ortega MD Work Phone: [facility] 07-28-2023 09:08-0500 Body height 165.1 cm Maria D Ortega MD Work Phone: [facility] 07-28-2023 09:08-0500 Body mass index (BMI) [Ratio] 40.4 kg/m2 Maria D Ortega MD Work Phone: [facility] 07-28-2023 09:08-0500 Body weight 110.13 kg Maria D Ortega MD Work Phone: [facility] 07-28-2023 09:08-0500 Diastolic blood pressure 76 mm[Hg] Maria D Ortega MD Work Phone: [facility] 07-28-2023 09:08-0500 Systolic blood pressure 108 mm[Hg] Maria D Ortega MD Work Phone: [facility] 07-18-2023 14:07-0500 Body mass index (BMI) [Ratio] 40.54 kg/m2 Maria D Ortega MD Work Phone: [facility] 07-18-2023 14:07-0500 Body weight 110.5 kg Maria D Ortega MD Work Phone: [facility] 07-18-2023 14:07-0500 Diastolic blood pressure 78 mm[Hg] Maria D Ortega MD Work Phone: [facility] 07-18-2023 14:07-0500 Systolic blood pressure 116 mm[Hg] Maria D Ortega MD Work Phone: [facility] 05-25-2023 09:19-0400 Body height 172.7 cm Amarjit Storey DPM Work Phone: [facility] 05-25-2023 09:19-0400 Body weight 105.69 kg Amarjit Storey DPM Work Phone: [facility] 05-25-2023 09:19-0400 Respiratory rate 20 /min Amarjit Storey DPM Work Phone: [facility] 05-15-2023 13:45-0400 Body height 172.7 cm Noelle Blanc APRN.DIE DRAWING CHECKER Work Phone: [facility] 05-15-2023 13:45-0400 Body temperature 97.9 [degF] Noelle Queden CLINICAL INFORMATICS SPEC.DIE DRAWING CHECKER Work Phone: [facility] 05-15-2023 13:45-0400 Body weight 105.69 kg Noelle Queden CLINICAL INFORMATICS SPEC.DIE DRAWING CHECKER Work Phone: [facility] 05-15-2023 13:45-0400 Diastolic blood pressure 70 mm[Hg] Noelle Queden CLINICAL INFORMATICS SPEC.DIE DRAWING CHECKER Work Phone: [facility] 05-15-2023 13:45-0400 Heart rate 74 /min Noelle Queden CLINICAL INFORMATICS SPEC.DIE DRAWING CHECKER Work Phone: [facility] 05-15-2023 13:45-0400 Respiratory rate 18 /min Noelle Queden CLINICAL INFORMATICS SPEC.DIE DRAWING CHECKER Work Phone: [facility] 05-15-2023 13:45-0400 SaO2% (BldA) [Mass fraction] 98 % Noelle Queden CLINICAL INFORMATICS SPEC.DIE DRAWING CHECKER Work Phone: [facility] 05-15-2023 13:45-0400 Systolic blood pressure 124 mm[Hg] Noelle Queden CLINICAL INFORMATICS SPEC.DIE DRAWING CHECKER Work Phone: [facility] 03-31-2023 13:42-0400 Body height 172.7 cm Noelle Queden CLINICAL INFORMATICS SPEC.DIE DRAWING CHECKER Work Phone: [facility] 03-31-2023 13:42-0400 Body temperature 98.01 [degF] Noelle Queden CLINICAL INFORMATICS SPEC.DIE DRAWING CHECKER Work Phone: [facility] 03-31-2023 13:42-0400 Body weight 106.59 kg Noelle Queden CLINICAL INFORMATICS SPEC.DIE DRAWING CHECKER Work Phone: [facility] 03-31-2023 13:42-0400 Diastolic blood pressure 74 mm[Hg] Noelle Queden CLINICAL INFORMATICS SPEC.DIE DRAWING CHECKER Work Phone: [facility] 03-31-2023 13:42-0400 Heart rate 83 /min Noelle Queden CLINICAL INFORMATICS SPEC.DIE DRAWING CHECKER Work Phone: [facility] 03-31-2023 13:42-0400 Respiratory rate 18 /min Noelle Queden CLINICAL INFORMATICS SPEC.DIE DRAWING CHECKER Work Phone: [facility] 03-31-2023 13:42-0400 SaO2% (BldA) [Mass fraction] 98 % Noelle Queden CLINICAL INFORMATICS SPEC.DIE DRAWING CHECKER Work Phone: [facility] 03-31-2023 13:42-0400 Systolic blood pressure 120 mm[Hg] Noelle Queden CLINICAL INFORMATICS SPEC.DIE DRAWING CHECKER Work Phone: [facility] 01-26-2023 09:03-0400 Body height 172.7 cm Amarjit Cordelia DPM Work Phone: [facility] 01-26-2023 09:03-0400 Body weight 102.97 kg Amarjit Cordelia DPM Work Phone: [facility] 01-26-2023 09:03-0400 Respiratory rate 16 /min Amarjit Cordelia DPM Work Phone: [facility] 10-27-2022 08:43-0500 Body height 172.7 cm Amarjit Cordelia DPM Work Phone: [facility] 10-27-2022 08:43-0500 Body weight 102.97 kg Amarjit Cordelia DPM Work Phone: [facility] 10-27-2022 08:43-0500 Respiratory rate 18 /min Amarjit Cordelia DPM Work Phone: [facility] 07-28-2022 09:08-0500 Body height 172.7 cm Amarjit Cordelia DPM Work Phone: [facility] 07-28-2022 09:08-0500 Body weight 102.97 kg Amarjit Cordelia DPM Work Phone: [facility] 07-28-2022 09:08-0500 Respiratory rate 17 /min Amarjit Cordelia DPM Work Phone: [facility] 06-29-2022 11:02-0500 Body height 170.2 cm Amarjit Cordelia DPM Work Phone: [facility] 06-29-2022 11:02-0500 Body weight 86.18 kg Amarjit Cordelia DPM Work Phone: [facility] 06-29-2022 11:02-0500 Respiratory rate 16 /min Amarjit Cordelia DPM Work Phone: [facility] 04-19-2022 09:46-0400 Body height 170.2 cm Amarjit Cordelia DPM Work Phone: [facility] 04-19-2022 09:46-0400 Body weight 112.49 kg Amarjit Cordelia DPM Work Phone: [facility] 04-19-2022 09:46-0400 Respiratory rate 16 /min Amarjit Cordelia DPM Work Phone: [facility] 12-16-2021 10:07-0400 Body height 172.2 cm Noelle Queden CLINICAL INFORMATICS SPEC.DIE DRAWING CHECKER Work Phone: [facility] 12-16-2021 10:07-0400 Body temperature 98.29 [degF] Noelle Queden CLINICAL INFORMATICS SPEC.DIE DRAWING CHECKER Work Phone: [facility] 12-16-2021 10:07-0400 Body weight 112.76 kg Noelle Queden CLINICAL INFORMATICS SPEC.DIE DRAWING CHECKER Work Phone: [facility] 12-16-2021 10:07-0400 Diastolic blood pressure 70 mm[Hg] Noelle Queden CLINICAL INFORMATICS SPEC.DIE DRAWING CHECKER Work Phone: [facility] 12-16-2021 10:07-0400 Heart rate 75 /min Noelle Queden CLINICAL INFORMATICS SPEC.DIE DRAWING CHECKER Work Phone: [facility] 12-16-2021 10:07-0400 SaO2% (BldA) [Mass fraction] 98 % Noelle Queden CLINICAL INFORMATICS SPEC.DIE DRAWING CHECKER Work Phone: [facility] 12-16-2021 10:07-0400 Systolic blood pressure 120 mm[Hg] Noelle Queden CLINICAL INFORMATICS SPEC.DIE DRAWING CHECKER Work Phone: [facility] 11-25-2021 11:25-0400 Body height 172.7 cm Noelle Queden CLINICAL INFORMATICS SPEC.DIE DRAWING CHECKER Work Phone: [facility] 11-25-2021 11:25-0400 Body temperature 98.1 [degF] Noelle Queden CLINICAL INFORMATICS SPEC.DIE DRAWING CHECKER Work Phone: [facility] 11-25-2021 11:25-0400 Body weight 108.05 kg Noelle Queden CLINICAL INFORMATICS SPEC.DIE DRAWING CHECKER Work Phone: [facility] 11-25-2021 11:25-0400 Diastolic blood pressure 70 mm[Hg] Noelle Queden CLINICAL INFORMATICS SPEC.DIE DRAWING CHECKER Work Phone: [facility] 11-25-2021 11:25-0400 Heart rate 87 /min Noelle Queden CLINICAL INFORMATICS SPEC.DIE DRAWING CHECKER Work Phone: [facility] 11-25-2021 11:25-0400 SaO2% (BldA) [Mass fraction] 97 % Noelle Queden CLINICAL INFORMATICS SPEC.DIE DRAWING CHECKER Work Phone: [facility] 11-25-2021 11:25-0400 Systolic blood pressure 120 mm[Hg] Noelle Queden CLINICAL INFORMATICS SPEC.DIE DRAWING CHECKER Work Phone: [facility] 11-18-2021 09:31-0400 Body height 172.7 cm Amarjit Storey DPM Work Phone: [facility] 11-18-2021 09:31-0400 Body weight 81.65 kg Amarjit Storey DPM Work Phone: [facility] 11-18-2021 09:31-0400 Respiratory rate 16 /min Amarjit Storey DPM Work Phone: [facility] Encounters Encounter Date Encounter Type Care Provider Facility Start: 05-02-2025 End: 05-02-2025 Patient encounter procedure Noelle Normanden CLINICAL INFORMATICS SPEC.DIE DRAWING CHECKER Work Phone: [facility] Comment on above: Migraine without aur a and without status migrainosus, not intractable (Primary Dx); Dizziness and giddiness; Chronic tension-type headache, intractable; Visual disturbances Start: 05-02-2025 End: 05-02-2025 [facility] Start: 04-24-2025 End: 04-24-2025 Patient encounter procedure Amarjit Storey DPM Work Phone: [facility] Comment on above: History of ankle behzad ev (Primary Dx); Plantar fasciitis, right Start: 04-24-2025 End: 04-24-2025 [facility] Start: 04-17-2025 End: 04-17-2025 Telephone encounter Noelle Blanc CLINICAL INFORMATICS SPEC.DIE DRAWING CHECKER Work Phone: [facility] Comment on above: Patient Question Start: 04-14-2025 End: 04-15-2025 Follow-up encounter Noelle Blanc APRN.DIE DRAWING CHECKER Work Phone: [facility] Start: 04-11-2025 End: 04-11-2025 Patient encounter procedure Noelle Blanc CLINICAL INFORMATICS SPEC.DIE DRAWING CHECKER Work Phone: [facility] Comment on above: Migraine without aur a and without status migrainosus, not intractable (Primary Dx); Chronic tension-type headache, intractable; Dizziness and giddiness; Visual disturbances; History of Swain's palsy Start: 04-11-2025 End: 04-11-2025 [facility] Start: 03-18-2025 End: 03-18-2025 Patient encounter procedure Noelle Blanc CLINICAL INFORMATICS SPEC.DIE DRAWING CHECKER Work Phone: [facility] Comment on above: Acute bilateral low back pain without sciatica (Primary Dx); Bilateral flank pain; Acute ear pain, bilateral; Foul smelling urine Start: 03-18-2025 End: 03-18-2025 [facility] Facility:[facility] Start: 03-12-2025 End: 03-12-2025 Patient encounter procedure Amarjit Storey DPM Work Phone: [facility] Comment on above: Postoperative state (Primary Dx); History of ankle surgery Start: 03-12-2025 End: 03-12-20[facility] Start: 02-13-2025 End: 04-15-2025 Follow-up encounter Noellezack Normandiogo ROBLES.RIN Work Phone: [facility] Start: 02-13-2025 End: 02-13-2025 [facility] Facility:[facility] Start: 12-11-2024 End: 12-11-2024 Patient encounter procedure Amarjit Storey DPM Work Phone: [facility] Comment on above: Postoperative state (Primary Dx) Start: 12-11-2024 End: 12-11-2024 [facility] NOELLE BLANC Facility:[facility] Start: 11-27-2024 [facility] Start: 11-27-2024 End: 11-27-2024 Subsequent hospital visit by physician [facility] Work Phone: [facility] Comment on above: Post-operative state [Z98.890] Start: 11-13-2024 End: 11-13-2024 ambulatory Amarjit Storey DPVivian Work Phone: [facility] Comment on above: Work note Start: 11-07-2024 End: 11-07-2024 E-mail encounter from caregiver Noellezack Normandiogo ROBLES.DIE DRAWING CHECKER Work Phone: [facility] Start: 11-07-2024 End: 11-07-2024 Patient encounter procedure Noellenanci Normandiogo CLINICAL INFORMATICS SPEC.DIE DRAWING CHECKER Work Phone: [facility] Comment on above: Class 2 obesity with out serious comorbidity with body mass index (BMI) of 36.0 to 36.9 in adult, unspecified obesity type (Primary Dx); Unable to lose weight; PSVT (paroxysmal supraventricular tachycardia) (HCC); Metabolic syndrome Start: 11-07-2024 End: 11-07-2024 ambulatory Noelle Rianna Loree CLINICAL INFORMATICS SPEC.DIE DRAWING CHECKER Work Phone: [facility] Comment on above: Medication Start: 11-06-2024 End: 11-06-2024 Patient encounter procedure Amarjit Storey DPM Work Phone: [facility] Comment on above: Post-operative state (Primary Dx) Start: 11-06-2024 End: 11-06-2024 ambulatory NOELLE BLANC Facility:[facility] Start: 10-16-2024 End: 10-20-2024 ambulatory Noelle Blanc CLINICAL INFORMATICS SPEC.DIE DRAWING CHECKER Work Phone: [facility] Comment on above: Med question Start: 10-09-2024 End: 10-09-2024 Patient encounter procedure Amarjit Storey DPM Work Phone: [facility] Comment on above: Post-operative state (Primary Dx) Start: 10-09-2024 End: 10-09-2024 ambulatory NOELLENANIC BLANC Facility:[facility] Start: 09-18-2024 End: 09-18-2024 Patient encounter procedure Amarjit Storey DPM Work Phone: [facility] Comment on above: Post-operative state (Primary Dx) Start: 09-18-2024 End: 09-18-2024 ambulatory NOELLE BLANC Facility:[facility] Start: 09-13-2024 End: 09-13-2024 ambulatory Amarjit Storey DPM Work Phone: [facility] Comment on above: Work note Start: 09-10-2024 End: 09-10-2024 Patient encounter procedure [facility] Start: 09-04-2024 End: 09-04-2024 Patient encounter procedure Amarjit GEEM Work Phone: [facility] Comment on above: Post-operative state (Primary Dx) Start: 09-04-2024 End: 09-04-2024 ambulatory NOELLE BLANC Facility:[facility] Start: 08-28-2024 End: 08-28-2024 Patient encounter procedure Amarjit GEEM Work Phone: [facility] Comment on above: Post-operative state (Primary Dx) Start: 08-28-2024 End: 08-28-2024 ambulatory NOELLE BLANC Facility:[facility] Start: 08-23-2024 End: 08-23-2024 Patient encounter procedure Amarjit Storey DPM Work Phone: [facility] Comment on above: Post-operative state (Primary Dx); Post-traumatic arthritis of right ankle Start: 08-23-2024 End: 08-23-2024 ambulatory NOELLE BLANC Facility:[facility] Start: 08-22-2024 End: 08-22-2024 Refill Amarjit Storey DPM Work Phone: [facility] Comment on above: Refill Request Start: 08-20-2024 End: 08-22-2024 ambulatory Jeannette Navarro RN Work Phone: [employer] Start: 08-20-2024 End: 08-22-2024 Home visit Jeannette Navarro RN Work Phone: [employer] Comment on above: Initial phone contac t for Transitional Care Management Start: 08-19-2024 End: 08-19-2024 ambulatory Amarjit Storey DPM Work Phone: [facility] Comment on above: Work note Start: 08-17-2024 End: 08-19-2024 ambulatory NOELLENANCI BLANC Facility:[facility] Start: 08-17-2024 End: 08-17-2024 Emergency department patient visit ELIOT GUTIERREZ Facility:[facility] Start: 08-16-2024 End: 08-16-2024 [facility] Start: 08-08-2024 End: 08-08-2024 Admission to establishment [facility] Pre Surgical Testing Start: 08-08-2024 End: 08-08-2024 Preprocedural examination done Pst 1 [facility] Work Phone: Start: 08-08-2024 End: 08-08-2024 ambulatory NOELLE BLANC Pre Surgical Testing Comment on above: Pre-op examination ( Primary Dx); Post-traumatic arthritis of right ankle; Osteoarthritis of right ankle, unspecified osteoarthritis type; PSVT (paroxysmal supraventricular tachycardia) ([facility]); Migraine with aura and without status migrainosus, not intractable; Mild intermittent asthma without complication; Gastroesophageal reflux disease without esophagitis; Class 2 obesity without serious comorbidity with body mass index (BMI) of 36.0 to 36.9 in adult, unspecified obesity type Start: 08-07-2024 End: 08-07-2024 ambulatory Noellenanci Blanc ADEN Work Phone: [facility] Comment on above: Migraines Start: 08-06-2024 End: 08-06-2024 Telephone encounter Amarjit Storey DPM Work Phone: [facility] Comment on above: Preparations For Behzad ev Start: 07-23-2024 End: 07-23-2024 Telephone encounter Gayle Aragon PA-C Work Phone: [facility] Comment on above: Orders Refill Request Start: 07-23-2024 End: 07-23-2024 Patient encounter procedure Gayle Aragon PA-C Work Phone: [facility] Comment on above: Sensation of lump in throat (Primary Dx); Gastroesophageal reflux disease, unspecified whether esophagitis present; Heartburn; Hoarseness; Early satiety; Loss of appetite; Choking, initial encounter; Chronic cough Start: 07-23-2024 End: 07-23-2024 Telemedicine consultation with patient Gayle Angel HERNANDEZ [facility] Start: 07-23-2024 End: 07-23-2024 ambulatory Amarjit Storey DPVivian Work Phone: [facility] Comment on above: Naproxen Start: 07-22-2024 End: 07-27-2024 Refill Amarjit Storey DPM Work Phone: [facility] Comment on above: Refill Request Start: 06-29-2024 End: 07-01-2024 Refill Amarjit Storey DPM Work Phone: [facility] Comment on above: Refill Request Start: 06-23-2024 End: 06-24-2024 ambulatory Lyle Sykes CLINICAL INFORMATICS SPEC.DIE DRAWING CHECKER Work Phone: [facility] Start: 06-23-2024 End: 06-24-2024 Patient encounter procedure Lyle Sykes CLINICAL INFORMATICS SPEC.DIE DRAWING CHECKER Work Phone: [facility] Comment on above: Trulicity Start: 06-06-2024 End: 06-06-2024 ambulatory LYLE SYKES Facility:[facility] Start: 06-05-2024 End: 06-05-2024 Telephone encounter [facility] Provider [facility] Comment on above: Patient Update Start: 06-04-2024 End: 06-04-2024 Patient encounter procedure Lyle Sykes CLINICAL INFORMATICS SPEC.DIE DRAWING CHECKER Work Phone: [facility] Comment on above: Class 2 obesity with out serious comorbidity with body mass index (BMI) of 36.0 to 36.9 in adult, unspecified obesity type (Primary Dx); PTSD (post-traumatic stress disorder); PSVT (paroxysmal supraventricular tachycardia) ([facility]); Dietary counseling and surveillance; BMI 35.0-35.9,adult; Sinus bradycardia; Metabolic syndrome Start: 06-04-2024 End: 06-04-2024 ambulatory LYLE SYKES Facility:[facility] Start: 06-03-2024 End: 06-05-2024 ambulatory Amarjit Storey DPM Work Phone: [facility] Comment on above: Meds Refill Request Start: 05-06-2024 End: 05-06-2024 Telephone encounter Amarjit Storey DPM Work Phone: [facility] Start: 05-02-2024 End: 05-02-2024 Patient encounter procedure Amarjit Storey DPM Work Phone: [facility] Comment on above: History of ankle behzad ev (Primary Dx); Chronic pain of right ankle; Post-traumatic arthritis of right ankle; Vitamin D deficiency Post-traumatic arthr itis of right ankle (Primary Dx); Osteoarthritis of right ankle or foot Start: 04-10-2024 End: 04-12-2024 Refill Amarjit Storey DPM Work Phone: [facility] Start: 04-05-2024 ambulatory Amarjit adair DPM Work Phone: [facility] Comment on above: Prescriptions Start: 04-04-2024 End: 04-04-2024 Patient encounter procedure Amarjit GEEM Work Phone: [facility] Comment on above: Chronic pain of righ t ankle (Primary Dx); Post-traumatic arthritis of right ankle; History of ankle surgery Start: 04-02-2024 End: 04-02-2024 Subsequent hospital visit by physician [facility] Work Phone: [facility] Comment on above: Closed fracture of r ight ankle with routine healing, subsequent encounter [S82.891D] Start: 03-28-2024 End: 03-28-2024 Patient encounter procedure Amarjit Storey DPM Work Phone: [facility] Comment on above: Closed fracture of r ight ankle with routine healing, subsequent encounter (Primary Dx) Start: 03-04-2024 Telephone encounter Noelle Blanc APRN.DIE DRAWING CHECKER Work Phone: [facility] Start: 03-01-2024 End: 03-01-2024 Patient encounter procedure Noelle Blanc CLINICAL INFORMATICS SPEC.DIE DRAWING CHECKER Work Phone: [facility] Comment on above: Facial cellulitis (P rimary Dx); Abscess of face; Mild intermittent asthma with acute exacerbation Start: 02-28-[address] [facility] Comment on above: Refill Request Start: 02-27-2024 ambulatory Amarjit adair DPM Work Phone: [facility] Comment on above: ankle pain Start: 02-20-2024 ambulatory Noelle hankins CLINICAL INFORMATICS SPEC.DIE DRAWING CHECKER Work Phone: [facility] Comment on above: Probiotics Start: 02-15-2024 End: 02-19-2024 Evaluation and management of inpatient NOELLE A QUEDEN Facility:[facility] Start: 01-31-2024 ambulatory Noelle A Qued en CLINICAL INFORMATICS SPEC.DIE DRAWING CHECKER Work Phone: [facility] Comment on above: Topamax Start: 01-17-2024 ambulatory Noelle A Qued en CLINICAL INFORMATICS SPEC.DIE DRAWING CHECKER Work Phone: [facility] Start: 01-17-2024 Patient encounter procedure Noelle Normanden CLINICAL INFORMATICS SPEC.DIE DRAWING CHECKER Work Phone: [facility] Comment on above: Obesity clinic Start: 01-12-2024 Refill Amarjit adair DPM Work Phone: [facility] Comment on above: Refill Request Start: 01-11-2024 ambulatory [facility] Provider [facility] Comment on above: meloxicam Start: 01-11-2024 E-mail encounter fro m caregiver [facility] Provider [facility] Start: 01-10-2024 ambulatory Amarjit adair DPVivian Work Phone: [facility] Comment on above: Meloxicam Start: 12-27-2023 Telephone encounter Noelle Normanden CLINICAL INFORMATICS SPEC.DIE DRAWING CHECKER Work Phone: [facility] Comment on above: Results Start: 12-26-2023 End: 12-26-2023 Subsequent hospital visit by physician [facility] Comment on above: Pain in right lower leg [M79.661] Start: 12-26-2023 End: 12-26-2023 Patient encounter procedure Noelle Rianna Normanden CLINICAL INFORMATICS SPEC.DIE DRAWING CHECKER Work Phone: [facility] Comment on above: Pain in right lower leg (Primary Dx) Start: 12-21-2023 End: 12-21-2023 Patient encounter procedure Amarjit Storey DPM Work Phone: [facility] Comment on above: Post-operative state (Primary Dx); Arthritis of right ankle Start: 12-15-2023 Patient encounter procedure [facility] Provider [facility] Start: 11-29-2023 Telephone encounter [facility] Comment on above: Appointment Start: 11-13-2023 Refill Amarjit GEEM Work Phone: [facility] Comment on above: Refill Request Start: 11-10-2023 Patient encounter procedure [facility] Provider [facility] Start: 11-10-2023 Refill Amarjit adair DPM Work Phone: [facility] Comment on above: Refill Request Start: 11-08-2023 End: 11-08-2023 Patient encounter procedure Amarjit GEEM Work Phone: [facility] Comment on above: Post-operative state (Primary Dx) Start: 11-07-2023 Telephone encounter [facility] Comment on above: Appointment Start: 11-02-2023 End: 11-02-2023 Patient encounter procedure Amarjit GEEM Work Phone: [facility] Comment on above: Post-traumatic arthr itis of right ankle (Primary Dx); Post-operative state Start: 10-26-2023 End: 10-26-2023 Patient encounter status Mariela M Ronnell HERNÁNDEZ, TRAVIS-RIN, NATE [facility] Start: 10-26-2023 End: 10-26-2023 Periodic preventive med est patient 18-39 yrs Mariela HERNÁNDEZ, TRAVIS-RIN, NATE [facility] Comment on above: Encounter for gyneco logical examination without abnormal finding; Pap smear for cervical cancer screening Start: 10-26-2023 End: 10-26-2023 ambulatory [facility] Start: 10-26-2023 End: 10-26-2023 Encounter for gynecological examination (general) (routine) without abnormal findings MARIELA Vivian [facility] Start: 10-25-2023 ambulatory Amarjit adair DPM Work Phone: [facility] Comment on above: Work note Start: 10-19-2023 Telephone encounter Amarjit Storey DPM Work Phone: [facility] Comment on above: Preparations For Behzad ev Start: 10-17-2023 End: 10-17-2023 Admission to establishment [facility] [address] [facility] Start: 10-17-2023 End: 10-17-2023 amb[address] Pst 1 Pre Surgical Testing Comment on above: Pain due to bone fix ation device, initial encounter ([facility]); Post-traumatic arthritis of right ankle; Pre-op examination; Palpitations; Class 2 obesity without serious comorbidity with body mass index (BMI) of 36.0 to 36.9 in adult, unspecified obesity type; PSVT (paroxysmal supraventricular tachycardia) ([facility]) Start: 10-17-2023 End: 10-17-2023 Preprocedural examination done Pst 1 [facility] Work Phone: Start: 10-16-2023 Encounter for other preprocedural examination LYLE MARCELINOJYOTHI [facility] Start: 10-16-2023 Preprocedural examin ation done Pst 1 [facility] Work Phone: Start: 10-12-2023 End: 10-12-2023 Patient encounter procedure Noelle Blanc APRN.DIE DRAWING CHECKER Work Phone: [facility] Comment on above: Unable to lose weigh t (Primary Dx); Class 2 obesity without serious comorbidity with body mass index (BMI) of 36.0 to 36.9 in adult, unspecified obesity type Start: 10-12-2023 Preprocedural examin ation done Noelle Blanc APRN.DIE DRAWING CHECKER Work Phone: [facility] Work Phone: Start: 09-25-2023 End: 09-25-2023 ambulatory Misael ASHRAF Facility:[facility] Start: 09-06-2023 End: 09-06-2023 Patient encounter procedure Maria D Ortega MD [facility] Comment on above: Postop check Start: 08-31-2023 End: 08-31-2023 Subsequent hospital visit by physician Maria D Ortega MD Work Phone: [facility] [place] Comment on above: Menorrhagia with irr egular cycle (Primary Dx); Status post hysteroscopy Start: 08-31-2023 ambulatory MARIA D ORTEGA [facility] Start: 08-23-2023 End: 08-23-2023 ambulatory NOELLE BLANC Facility:[facility] Start: 08-17-2023 ambulatory NOELLE BLANC [facility] Start: 07-28-2023 End: 07-28-2023 Office outpatient visit 25 minutes Maria D Ortega MD Work Phone: [facility] Comment on above: Menorrhagia with irr egular cycle (Primary Dx) Start: 07-18-2023 End: 07-18-2023 Office outpatient visit 15 minutes Maria D Ortega MD Work Phone: [facility] Comment on above: Irregular bleeding ( Primary Dx) Start: 07-12-2023 Refill Noelle Shelby en CLINICAL INFORMATICS SPEC.DIE DRAWING CHECKER Work Phone: [facility] Comment on above: Refill Request Start: 07-07-2023 ambulatory Amarjit adair DPM Work Phone: [facility] Comment on above: Ankle scope Start: 07-04-2023 End: 07-04-2023 Subsequent hospital visit by physician German De La Cruz 1 [facility] Comment on above: Irregular bleeding Start: 07-04-2023 End: 07-04-2023 ambulatory [facility] Start: 07-03-2023 End: 07-03-2023 Office outpatient new 30 minutes Maria D Ortega MD Work Phone: [facility] Comment on above: Irregular bleeding ( Primary Dx); Cervicitis; Screen for STD (sexually transmitted disease); Acute vaginitis; Dysuria Start: 05-25-2023 End: 05-25-2023 Patient encounter procedure Amarjit Storey DPM Work Phone: [facility] Comment on above: Post-traumatic arthr itis of right ankle (Primary Dx); History of ankle surgery; Chronic pain of right ankle; Painful orthopaedic hardware (HCC) Start: 05-15-2023 End: 05-15-2023 Patient encounter procedure Noelle Blanc CLINICAL INFORMATICS SPEC.DIE DRAWING CHECKER Work Phone: [facility] Comment on above: Palpitations (Primar y Dx); Daytime sleepiness; Snoring; At risk for sleep apnea Start: 05-09-2023 Telephone encounter Noelle Blanc CLINICAL INFORMATICS SPEC.DIE DRAWING CHECKER Work Phone: [facility] Comment on above: Results Start: 05-02-2023 Refill Amarjit Mateusz adair DPM Work Phone: [facility] Comment on above: Refill Request Start: 04-26-2023 End: 04-28-2023 ambulatory NOELLE BLANC Facility:[facility] Start: 04-19-2023 Telephone encounter Noelle Blanc CLINICAL INFORMATICS SPEC.DIE DRAWING CHECKER Work Phone: [facility] Comment on above: Results Start: 04-18-2023 End: 04-18-2023 Refill Noelle Blanc CLINICAL INFORMATICS SPEC.DIE DRAWING CHECKER Work Phone: [facility] Comment on above: Refill Request Palpitations [R00.2] Start: 04-05-2023 End: 04-05-2023 Nursing evaluation of patient and report Nurse Mary Mcdaniels [facility] Work Phone: [facility] Comment on above: Dizziness (Primary D x) Start: 04-05-2023 [facility] Work Phone: Neurology Start: 03-31-2023 End: 03-31-2023 Patient encounter procedure Noelle Blanc CLINICAL INFORMATICS SPEC.DIE DRAWING CHECKER Work Phone: [facility] Comment on above: Palpitations (Primar y Dx); Dizziness; Daytime sleepiness; Snoring; Arthritis of ankle Start: 03-28-2023 Telephone encounter Noelle Blanc CLINICAL INFORMATICS SPEC.DIE DRAWING CHECKER Work Phone: [facility] Comment on above: Orders Start: 03-10-2023 End: 03-11-2023 Emergency department patient visit Clark Krishnamurthy Facility:[facility] Start: 02-27-2023 E-mail encounter fro m caregiver Amarjit GEEM Work Phone: [facility] Start: 02-27-2023 Patient encounter procedure Amarjit Storey DPM Work Phone: [facility] Comment on above: Appointment Cancella tion Request Start: 01-26-2023 End: 01-26-2023 Patient encounter procedure Amarjit Storey DPM Work Phone: [facility] Comment on above: Post-traumatic arthr itis of right ankle (Primary Dx); Toenail deformity; History of ankle surgery Start: 01-18-2023 ambulatory Amarjit adair DPM Work Phone: [facility] Comment on above: Upcoming apt Start: 12-14-2022 Refill Toma Ramos MD Work Phone: Allergy Comment on above: Refill Request Start: 11-24-2022 ambulatory Noelle Shelby en CLINICAL INFORMATICS SPEC.DIE DRAWING CHECKER Work Phone: [facility] Comment on above: Effexor dose Start: 10-27-2022 End: 10-27-2022 Patient encounter procedure Amarjit GEEM Work Phone: [facility] Comment on above: Arthritis of ankle ( Primary Dx); History of ankle surgery Start: 09-19-2022 Refill Amarjit adair DPM Work Phone: [facility] Comment on above: Refill Request Start: 07-28-2022 End: 07-28-2022 Patient encounter procedure Amarjit GEEM Work Phone: [facility] Comment on above: Arthritis of ankle ( Primary Dx); History of ankle surgery Start: 06-29-2022 End: 06-29-2022 Patient encounter procedure Amarjit GEEM Work Phone: [facility] Comment on above: Arthritis of ankle ( Primary Dx); History of ankle surgery Start: 06-13-2022 ambulatory Amarjit Child Rick adair DPM Work Phone: [facility] Comment on above: Cortisone shot Start: 06-07-2022 Refill Amarjit Child Rick adair DPM Work Phone: [facility] Comment on above: Refill Request Start: 05-13-2022 Refill Amarjit Child Rick adair DPM Work Phone: [facility] Comment on above: Refill Request Start: 05-09-2022 ambulatory Noelle A Qued en CLINICAL INFORMATICS SPEC.DIE DRAWING CHECKER Work Phone: [facility] Start: 04-19-2022 End: 04-19-2022 Patient encounter procedure Amarjit Storey DPM Work Phone: [facility] Comment on above: Arthritis of ankle ( Primary Dx) Start: 03-24-2022 Telephone encounter Amarjit Storey DPM Work Phone: [facility] Comment on above: Appointment Cancelle d Start: 02-17-2022 End: 02-17-2022 Discharged [facility] Start: 02-15-2022 Telephone encounter Noelle A Queden CLINICAL INFORMATICS SPEC.DIE DRAWING CHECKER Work Phone: [facility] Comment on above: Missed Appointment ( 1st no show in 365 days (1st letter sent)) Start: 12-16-2021 End: 12-16-2021 Patient encounter procedure Noelle A Queden CLINICAL INFORMATICS SPEC.DIE DRAWING CHECKER Work Phone: [facility] Comment on above: Anxiety (Primary Dx) ; Bereavement reaction Start: 11-30-2021 ambulatory Noelle A Qued en CLINICAL INFORMATICS SPEC.DIE DRAWING CHECKER Work Phone: [facility] Comment on above: Update Start: 11-25-2021 End: 11-25-2021 Patient encounter procedure Noelle A Queden CLINICAL INFORMATICS SPEC.DIE DRAWING CHECKER Work Phone: [facility] Comment on above: Anxiety (Primary Dx) ; PTSD (post-traumatic stress disorder) Start: 11-22-2021 ambulatory Amarjit Child Rcik adair DPM Work Phone: [facility] Start: 11-22-2021 Follow-up encounter Amarjit Loraine Storey DPM Work Phone: [facility] Comment on above: Follow up Start: 11-18-2021 End: 11-18-2021 Patient encounter procedure Amarjit Mateusz Storey DPM Work Phone: [facility] Comment on above: S/P foot surgery, ri ght (Primary Dx) Start: 11-15-2021 ambulatory Amarjit Child Rick adair DPM Work Phone: [facility] Comment on above: Wound Start: 11-12-2021 End: 11-12-2021 Patient encounter procedure [facility], [place] [employer] Start: 11-08-2021 Telephone encounter Amarjit Storey DPM Work Phone: [facility] Comment on above: Patient Question Procedures Date Procedure Procedure Detail Performing Clinician Start: 03-18-2025 Urnls dip stick/tablet rgnt auto w/o microscopy Noelle Blanc APRN.DIE DRAWING CHECKER Work Phone: Start: 11-12-2024 Radex ankle complete minimum 3 views Mary Gutierrez DPM Work Phone: Start: 10-09-2024 Radex ankle complete minimum 3 views Mary Gutierrez DPM Work Phone: Start: 09-04-2024 Radex ankle complete minimum 3 views Amarjit Storey DPM Work Phone: Start: 05-02-2024 Radex ankle complete minimum 3 views Mary Gutierrez DPM Work Phone: Start: 04-02-2024 Ct lower extremity w/o contrast material Shey Conklin DPM Work Phone: Start: 03-28-2024 Radex ankle complete minimum 3 views Shey Conklin DPM Work Phone: Start: 10-26-2023 GYNECOLOGIC CYTOLOGY CONSULTATION MARIELA ANTHONY Start: 10-26-2023 Microscopic observation [Identifier] in Cervix by Cyto stain Maria D Ortega MD Start: 08-31-2023 Urine test visual color cmprsn meths Maria D Ortega MD Work Phone: Start: 08-17-2023 Basic metabolic 2000 panel - Serum or Plasma NOELLE BLANC Start: 08-17-2023 CBC panel - Blood by Automated count NOELLE BLANC Start: 08-17-2023 TYPE AND SCREEN NOELLE BLANC Start: 07-04-2023 US PELVIS TRANSABDOMINAL WITH TRANSVAGINAL MARIA D ORTEGA Start: 07-04-2023 Us transvaginal Maria D Ortega MD Work Phone: Start: 05-28-2023 Radex ankle complete minimum 3 views Rei Cisneros DPM Work Phone: Start: 04-18-2023 Echo tthrc r-t 2d w/wom-mode compl spec&colr d Noelle Blanc CLINICAL INFORMATICS SPEC.DIE DRAWING CHECKER Work Phone: Start: 10-27-2022 Radex ankle complete minimum 3 views Berny Martell DPM Work Phone: Start: 07-28-2022 Radex ankle complete minimum 3 views Amarjit Storey DPM Work Phone: Start: 07-03-2022 Arthrocentesis aspir&/inj interm jt/burs w/o us Amarjit Storey DPM Work Phone: Start: 04-24-2022 Radex ankle complete minimum 3 views Amarjit Storey DPM Work Phone: Start: 11-21-2021 Radex ankle complete minimum 3 views Fabian Liu DPM Work Phone: Start: 05-04-2021 Adult depression screening assessment Amarjit Storey DPM Work Phone: Start: 09-02-2020 Follow-up visit H/O: surgery S/P foot surgery , right Amarjit Storey DPM Work Phone: Plan of Treatment Date Care Activity Detail Author Start: 2042 Zoster Vaccines (1 of 2) Zoster Vaccines (1 of 2) [facility] Start: 10-25-2028 Screening for malignant neoplasm of cervix [facility] Start: 10-25-2026 Screening for malignant neoplasm of cervix [facility] Start: 05-02-2026 Annual PCP Team Chronic Disease Visit Annual PCP Team Chronic Disease Visit [facility] Start: 05-02-2026 HPV Vaccine (2 - 3-dose series) HPV Vaccine (2 - 3-dose series) [facility] Comment on above: Postponed from 07/01/2011 (Declined at t his time) Start: 04-11-2026 Annual PCP Team Chronic Disease Visit Annual PCP Team Chronic Disease Visit [facility] Start: 03-18-2026 Annual PCP Team Chronic Disease Visit Annual PCP Team Chronic Disease Visit [facility] Start: 02-17-2026 Influenza vaccination Influenza Vaccine (#1) [facility] Comment on above: Postponed from 04/21/2025 (Declined at t his time) Start: 11-07-2025 Annual PCP Team Chronic Disease Visit Annual PCP Team Chronic Disease Visit [facility] Start: 11-07-2025 Covid-19 Vaccine ( season) Covid-19 Vaccine ( season) [facility] Comment on above: Postponed from 04/21/2024 (Declined at t his time) Start: 11-07-2025 Urine microalbumin profile DTaP,Tdap,Td Vaccine (6 - Td or Tdap) [facility] Comment on above: Postponed from 05/31/2021 (Declined at t his time) Start: 06-19-2025 End: 06-19-2025 Patient encounter procedure 06/19/2025 1:45 PM EDT Office Visit [facility] [address] [place], [place] [id number] Amarjit Storey DPM [address] [place] [address] RIGHT ANKLE [facility] Comment on above: RIGHT ANKLE Start: 06-12-2025 End: 06-12-2025 Patient encounter procedure 06/12/2025 2:00 PM EDT Office Visit [facility] [address] [place] [address] Noelle Blanc, CLINICAL INFORMATICS SPEC.DIE DRAWING CHECKER [address] [place], [place] [phone] headaches. [facility] Comment on above: headaches. Start: 05-02-2025 End: 05-02-2025 Patient encounter procedure 05/02/2025 8:20 AM EDT Office Visit [facility] [address] [place] [address] Noelle Blanc, CLINICAL INFORMATICS SPEC.DIE DRAWING CHECKER [address] [place] [address] 3wk follow up for migraines [facility] Comment on above: 3wk follow up for migraines Start: 04-24-2025 End: 04-24-2025 Patient encounter procedure 04/24/2025 2:15 PM EDT Office Visit [facility] [address] [place] [address] Amarjit Storey DPM [address] [place], [place] [phone] rt ankle sx aug 16 [facility] Comment on above: rt ankle sx aug 16 Start: 04-21-2025 Influenza vaccination [facility] Start: 04-11-2025 End: 07-11-2025 Cobalamin (Vitamin B12) [Mass/volume] in Serum or Plasma [facility] Work Phone: Comment on above: Expected: 04/11/2025, Expires: Start: 04-10-2025 End: 04-10-2025 Patient encounter procedure 04/10/2025 9:15 AM EDT Office Visit [facility] [address] [place], [place] [phone] Amarjit Storey DPM [address] [place], [place] [phone] rt ankle sx aug 16 [facility] Comment on above: rt ankle sx aug 16 Start: 03-12-2025 End: 03-12-2025 Patient encounter procedure 03/12/2025 8:00 AM EDT Office Visit [facility] [address] [place] [address] Amarjit Storey DPM [address] [place], [place] [phone] R ankle [facility] Comment on above: R ankle Start: 03-01-2025 Annual PCP Team Chronic Disease Visit Annual PCP Team Chronic Disease Visit [facility] Start: 02-17-2025 Influenza vaccination Influenza Vaccine (#1) [facility] Comment on above: Postponed from 04/21/2024 (Declined at t his time) Start: 02-13-2025 End: 02-13-2025 ambulatory 02/13/2025 8:45 AM EDT Results Only [facility] [address] [place] [address] [facility] Start: 12-12-2024 End: 12-12-2024 Patient encounter procedure 12/12/2024 10:20 AM EDT Office Visit [facility] [address] [place] [address] Noelle Blanc, CLINICAL INFORMATICS SPEC.[facility] [address] [place], [place] [phone] 4-6 WK F/U weight loss management [facility] Comment on above: 4-6 WK F/U weight loss management Start: 12-11-2024 End: 12-11-2024 Patient encounter procedure 12/11/2024 9:45 AM EDT Office Visit [facility] [address] [place] [facility] [place] [address] Amarjit Storey DPM [address] [place] [address] 5 WK F/U RT ANKLE. CT ANKLE 11/27 [facility] Comment on above: 5 WK F/U RT ANKLE. CT ANKLE 11/27 Start: 11-27-2024 End: 11-27-2024 Patient encounter procedure 11/27/2024 9:00 AM EDT Appointment [facility] [address] [place] [address] Post-operative state [Z98.890] [facility] Comment on above: Post-operative state [Z98.890] Start: 11-07-2024 End: 02-06-2025 THYROID PEROXIDASE ANTIBODY [facility] Work Phone: Comment on above: Expected: 11/07/2024, Expires: Start: 11-07-2024 End: 11-07-2024 Patient encounter procedure 11/07/2024 11:20 AM EDT Office Visit [facility] [address] [place] [address] Noelle Blanc, CLINICAL INFORMATICS SPEC.DIE DRAWING CHECKER [address] [place] [address] Weight loss options [facility] Comment on above: Weight loss options Start: 11-06-2024 End: 11-06-2024 Patient encounter procedure 11/06/2024 11:15 AM EDT Office Visit [facility] [address] [place] [address] Amarjit Storey DPM [address] [address] PO RIGHT ANKLE, 08/16/24 [facility] Comment on above: PO RIGHT ANKLE, 08/16/24 Start: 10-16-2024 End: 10-16-2024 Patient encounter procedure 10/16/2024 2:30 PM EST Appointment Ambulatory Surgery [id number] [place] [address] [place] [address] [place] [address] Sensation of lump in throat [R09.A2] [facility] Comment on above: Sensation of lump in throat [R09.A2] Start: 10-09-2024 End: 10-09-2024 Patient encounter procedure 10/09/2024 11:15 AM EST Office Visit [facility] [address] [place] [address] Amarjit Storey DPM [address] [place] [address] PO RIGHT ANKLE, 08/16/24 [facility] Comment on above: PO RIGHT ANKLE, 08/16/24 Start: 09-24-2024 End: 09-24-2024 ambulatory 09/24/2024 1:00 PM EST OT/PT/Speech Visit [facility] [address] [place], [place] [phone] Choking, initial encounter [T17.308A]; Chronic cough [R05.3] [facility] Comment on above: Choking, initial encounter [T17.308A]; C hronic cough [R05.3] Start: 09-24-2024 End: 09-24-2024 Patient encounter procedure [facility] Comment on above: 12 wk f/u Choking, initial enc ounter [T17.308A]; Chronic cough [R05.3] Start: 09-18-2024 End: 09-18-2024 Patient encounter procedure 09/18/2024 11:00 AM EST Office Visit [facility] [address] [place] [address] Amarjit Storey DPM [address] [place] [address] PO RIGHT ANKLE, 08/16/24 [facility] Comment on above: PO RIGHT ANKLE, 08/16/24 Start: 09-04-2024 End: 09-04-2024 Patient encounter procedure 09/04/2024 8:15 AM EST Office Visit [facility] [address] [place] [address] Amarjit Storey DPM [address] [place] [address] PO RIGHT ANKLE, 08/16/24 [facility] Comment on above: PO RIGHT ANKLE, 08/16/24 Start: 08-23-2024 End: 08-23-2024 Patient encounter procedure 08/23/2024 3:30 PM EST Office Visit [facility] [address] [place] [address] Amarjit Storey DPM [address] [place] [address], [place] [address] RIGHT ANKLE SX 08/16/24 [facility] Comment on above: RIGHT ANKLE SX 08/16/24 Start: 08-23-2024 End: 08-23-2024 Patient encounter procedure 08/23/2024 1:45 PM EST Office Visit [facility] [address] [place] [address] Amarjit Storey DPM [address] [place] [address], [place] [address] 08-13 lm on time change/tlb-RIGHT ANKLE SX 08/16/24 [facility] Comment on above: 08-13 lm on time change/tlb-RIGHT ANKLE SX 08/16/24 Start: 08-16-2024 End: 08-16-2024 Admission to same day surgery center 08/16/2024 8:00 AM EST - 08/16/2024 11:35 AM EST Surgery [facility] [address] [place] [address] Amarjit Storey DPM [address] [place] [address], [place] [address] ARTHRODESIS ANKLE [facility] Comment on above: ARTHRODESIS ANKLE Start: 08-16-2024 End: 08-16-2024 Arthrodesis ankle open ARTHRODESIS ANKLE Post-traumatic arthritis of right ankle Osteoarthritis of right ankle or foot 08/16/2024 8:00 AM EST [facility] Start: 08-16-2024 End: 08-16-2024 Arthrodesis tibiofibular joint proximal/distal ARTHRODESIS TIBIOFIBULAR JOINT PROXIMAL OR DISTAL Post-traumatic arthritis of right ankle Osteoarthritis of right ankle or foot 08/16/2024 8:00 AM EST [facility] Start: 08-16-2024 Subsequent hospital visit by physician [facility] Comment on above: Post-traumatic arthritis of right ankle [M19.171], Osteoarthritis of right ankle or foot [M19.071] Start: 08-08-2024 End: 08-08-2024 ambulatory 08/08/2024 11:20 AM EST PAT Pre Surgical Testing [address] [place] [address] 1. ARTHRODESIS ANKLE Pre Surgical Testing Comment on above: 1. ARTHRODESIS ANKLE Start: 07-23-2024 End: 07-23-2024 Patient encounter procedure 07/23/2024 8:00 AM EST [facility] [address] [address] Gayle Aragon PA-C [address] [facility] [address] [place] [address] 10 Z68.35 Patient notes feels lump when swallowing and GERD [facility] Comment on above: 10 Z68.35 Patient notes feels lump when swallowing and GERD Start: 06-06-2024 End: 06-06-2024 Patient encounter procedure 06/06/2024 10:00 AM EDT Office Visit [facility] [address] [place] [address] Lyle Sykes, CLINICAL INFORMATICS SPEC.DIE DRAWING CHECKER [address] [place] [address] New Patient - Non SX [facility] Comment on above: New Patient - Non SX Start: 06-04-2024 End: 09-03-2024 Cortisol [Mass/volume] in Serum or Plasma CORTISOL, SERUM Lab Routine Class 2 obesity without serious comorbidity with body mass index (BMI) of 36.0 to 36.9 in adult, unspecified obesity type PTSD (post-traumatic stress disorder) PSVT (paroxysmal supraventricular tachycardia) (HCC) Dietary counseling and surveillance BMI 35.0-35.9,adult Expected: 06/04/2024, Expires: 09/03/2024 [facility] Comment on above: Expected: 06/04/2024, Expires: Start: 06-04-2024 End: 09-03-2024 Insulin [Units/volume] in Serum or Plasma INSULIN ASSAY BLOOD Lab Routine Class 2 obesity without serious comorbidity with body mass index (BMI) of 36.0 to 36.9 in adult, unspecified obesity type PTSD (post-traumatic stress disorder) PSVT (paroxysmal supraventricular tachycardia) (HCC) Dietary counseling and surveillance BMI 35.0-35.9,adult Expected: 06/04/2024, Expires: 09/03/2024 [facility] Work Phone: Comment on above: Expected: 06/04/2024, Expires: Start: 06-04-2024 End: 09-03-2024 Thyrotropin [Units/volume] in Serum or Plasma THYROID STIMULATING HORMONE Lab Routine Class 2 obesity without serious comorbidity with body mass index (BMI) of 36.0 to 36.9 in adult, unspecified obesity type PTSD (post-traumatic stress disorder) PSVT (paroxysmal supraventricular tachycardia) (HCC) Dietary counseling and surveillance BMI 35.0-35.9,adult Expected: 06/04/2024, Expires: 09/03/2024 [facility] Comment on above: Expected: 06/04/2024, Expires: Start: 06-04-2024 End: 06-04-2024 Patient encounter procedure 06/04/2024 10:00 AM EDT Office Visit [facility] [address] [place] [address] Lyle Sykes APRN.DIE DRAWING CHECKER 1 [facility] [place], [place] [phone] New Patient - Non SX [facility] Comment on above: New Patient - Non SX Start: 05-02-2024 End: 05-02-2024 Patient encounter procedure 05/02/2024 11:30 AM EDT Office Visit [facility] [address] [place] [address] Amarjit Storey DPM [address] [place] [address] AN[address]LE[address] CT:04/02/24 [facility] Comment on above: FU STAT CT ANKLE. CT:04/02/24 Start: 04-21-2024 Covid-19 Vaccine ( season) Covid-19 Vaccine ( season) [facility] Start: 04-21-2024 Covid-19 Vaccine () Covid-19 Vaccine () [facility] Start: 04-21-2024 Influenza vaccination [facility] Start: 04-04-2024 End: 04-04-2024 Patient encounter procedure 04/04/2024 2:00 PM EDT Office Visit [facility] [address] [place] [address] Amarjit Storey, ALLY [address] [place] [address] CT:04/02/24 [facility] Comment on above: FU STAT CT ANKLE. CT:04/02/24 Start: 03-28-2024 End: 03-28-2024 Patient encounter procedure 03/28/2024 10:45 AM EDT Office Visit [facility] [address] [place] [address] Amarjit Storey, ALLY [address] [place] [address] f/u right ankle/tlb [facility] Comment on above: f/u right ankle/tlb Start: 03-05-2024 End: 03-05-2024 Patient encounter procedure 03/05/2024 9:20 AM EDT Office Visit [facility] [address] [place] [address] Noelle Blanc, CLINICAL INFORMATICS SPEC.[facility] [address] [place] [address] Hospitalization follow up [facility] Comment on above: Hospitalization follow up Start: 03-01-2024 End: 03-01-2024 Patient encounter procedure 03/01/2024 1:00 PM EDT Office Visit [facility] [address] [place] [address] Noelle Blanc, CLINICAL INFORMATICS SPEC.DIE DRAWING CHECKER [address] [place], [place] [phone] [facility] Comment on above: [facility] Start: 02-20-2024 End: 05-21-2024 Hemoglobin A1c in Blood HEMOGLOBIN A1C Lab Routine Screening for diabetes mellitus Expected: 02/20/2024, Expires: 05/21/2024 [facility] Work Phone: Comment on above: Expected: 02/20/2024, Expires: Start: 12-21-2023 End: 12-21-2023 Patient encounter procedure 12/21/2023 10:00 AM EDT Office Visit [facility] [address] [place] [address] Amarjit Storey DPM [address] [facility] [address] [place] [address] PO-right ankle-SX:10/23/23 [facility] Comment on above: PO-right ankle-SX:10/23/23 Start: 12-19-2023 End: 12-19-2023 Patient encounter procedure 12/19/2023 11:20 AM EDT Office Visit [facility] [address] [place], [place] [phone] Noelle Blanc, CLINICAL INFORMATICS SPEC.DIE DRAWING CHECKER [address] [place], [place] [phone] Calf pain [facility] Comment on above: Calf pain Start: 09-06-2023 End: 09-06-2023 Patient encounter procedure 09/06/2023 9:15 AM EST Office Visit [facility] Building [address] [place] [phone] Maria D Ortega MD [address] [facility], [address] [place] [address] [facility] Start: 08-31-2023 Subsequent hospital visit by physician 08/31/2023 Hospital Encounter [facility] [address] [place] [address] Maria D Ortega MD [address] [facility], [address] [phone] [facility] Start: 08-21-2023 Behavioral Health Screening Behavioral Health Screening [facility] Start: 08-21-2023 Depression Assessment Depression Assessment [facility] Start: 07-28-2023 End: 07-28-2024 Surgical pathology study Surgical Pathology Exam Pathology and Cytology Routine Menorrhagia with irregular cycle Expected: 07/28/2023 (Approximate), Expires: 07/28/2024 [facility] Service Area Work Phone: Comment on above: Expected: 07/28/2023 (Approximate), Expi res: 07/28/2024 Start: 07-28-2023 End: 07-28-2023 Patient encounter procedure 07/28/2023 9:00 AM EST Office Visit [facility] [address] [place] [phone] Maria D Ortega MD [address] [facility], [address] [phone] [facility] Start: 07-18-2023 End: 07-18-2023 Patient encounter procedure 07/18/2023 2:15 PM EST Office Visit [facility] [address] [place] [address] Maria D Ortega MD [address] [place] [address] Medical Office, [facility] [address] [place] [address] [facility] Start: 07-04-2023 End: 07-04-2023 Patient encounter procedure 07/04/2023 12:45 PM EST Appointment [facility] [address] [place] [phone] [facility] Start: 07-03-2023 End: 07-10-2023 Bacteria identified in Unspecified specimen by Culture Tissue/Wound Culture/Smear Microbiology Routine Irregular bleeding Cervicitis Expected: 07/03/2023 (Approximate), Expires: 07/10/2023 [facility] Work Phone: Comment on above: Expected: 07/03/2023 (Approximate), Expi res: 07/10/2023 Start: 07-03-2023 End: 07-10-2023 Bacteria identified in Urine by Culture Urine Culture Microbiology Routine Dysuria Expected: 07/03/2023 (Approximate), Expires: 07/10/2023 [facility] Work Phone: Comment on above: Expected: 07/03/2023 (Approximate), Expi res: 07/10/2023 Start: 07-03-2023 End: 07-03-2024 Chlamydia trachomatis and Neisseria gonorrhoeae DNA [Identifier] in Unspecified specimen by GAETANO with probe detection C. Trachomatis / N. Gonorrhoeae, Amplified Detection Lab Routine Screen for STD (sexually transmitted disease) Expected: 07/03/2023 (Approximate), Expires: 07/03/2024 [facility] Work Phone: Comment on above: Expected: 07/03/2023 (Approximate), Expi res: 07/03/2024 Start: 07-03-2023 End: 07-03-2024 Trichomonas vaginalis rRNA [Presence] in Unspecified specimen by GAETANO with probe detection TRICH VAGINALIS, AMPLIFIED Lab Routine Acute vaginitis Expected: 07/03/2023 (Approximate), Expires: 07/03/2024 [facility] Work Phone: Comment on above: Expected: 07/03/2023 (Approximate), Expi res: 07/03/2024 Start: 07-03-2023 End: 07-03-2024 US Pelvis transvaginal US PELVIS TRANSABDOMINAL WITH TRANSVAGINAL Imaging Routine Irregular bleeding Expected: 07/03/2023 (Approximate), Expires: 07/03/2024 [facility] Service Area Work Phone: Comment on above: Expected: 07/03/2023 (Approximate), Expi res: 07/03/2024 Start: 04-21-2023 Covid-19 Vaccine () Covid-19 Vaccine () [facility] Start: 04-21-2023 Influenza vaccination [facility] Start: 08-21-2022 DEPRESSION ASSESSMENT DEPRESSION ASSESSMENT [facility] Start: 2022 HPV TESTING HPV TESTING [facility] Start: 2022 Screening for malignant neoplasm of cervix HPV Testing [facility] Start: 05-04-2022 Adult depression screening assessment DEPRESSION SCREENING [facility] Start: 05-04-2022 HEPATITIS C SCREENING HEPATITIS C SCREENING [facility] Comment on above: Postponed from 2010 (Declined at t his time) Start: 05-04-2022 HIV SCREENING HIV SCREENING [facility] Comment on above: Postponed from 2010 (Declined at t his time) Start: 04-21-2022 Influenza vaccination [facility] Start: 08-21-2021 DEPRESSION ASSESSMENT DEPRESSION ASSESSMENT [facility] Start: 05-31-2021 DTaP/Tdap/Td Vaccines (6 - Td or Tdap) DTaP/Tdap/Td Vaccines (6 - Td or Tdap) [facility] Start: 05-31-2021 Urine microalbumin profile [facility] Start: 04-21-2021 Influenza vaccination INFLUENZA (#1) [facility] Start: 02-14-2021 COVID-19 VACCINE (3 - Booster for Moderna series) COVID-19 VACCINE (3 - Booster for Moderna series) [facility] Start: 11-11-2020 COVID-19 VACCINE (3 - Booster for Moderna series) COVID-19 VACCINE (3 - Booster for Moderna series) [facility] Start: 11-11-2020 COVID-19 VACCINE (3 - Moderna series) COVID-19 VACCINE (3 - Moderna series) [facility] Start: 2013 PAP TESTING PAP TESTING [facility] Start: 2013 Screening for malignant neoplasm of cervix [facility] Start: 2011 Pneumococcal Vaccine: Pediatrics and At-Risk Adult Patients (1 of 2 - PCV) Pneumococcal Vaccine: Pediatrics and At-Risk Adult Patients (1 of 2 - PCV) [facility] Start: 2011 Urine microalbumin profile DTAP,TDAP,TD (1 - Tdap) [facility] Start: 07-01-2011 HPV VACCINE (2 - 3-dose series) HPV VACCINE (2 - 3-dose series) [facility] Start: 07-01-2011 HPV Vaccines (2 - 3-dose series) HPV Vaccines (2 - 3-dose series) [facility] Start: 2010 Depression Screening Depression Screening [facility] Start: 2010 Diabetes mellitus screening Diabetes Screening [facility] Start: 2010 HEPATITIS C SCREENING HEPATITIS C SCREENING [facility] Start: 2010 HIV SCREENING HIV SCREENING [facility] Start: 2010 Spirometry Spirometry [facility] Start: 2005 Varicella vaccination Varicella Vaccines (1 of 2 - 13+ 2-dose series) [facility] Start: 06-23-2005 Varicella vaccination Varicella Vaccines (1 of 2 - 2-dose childhood series) [facility] Start: 10-06-1996 IPV Vaccines (4 of 4 - 4-dose series) IPV Vaccines (4 of 4 - 4-dose series) [facility] Start: 1992 Lipid panel Lipid Panel [facility] Start: 1992 Yearly Adult Physical Yearly Adult Physical [facility] Arthrodesis ankle open ARTHRODES IS ANKLE Post-traumatic arthritis of right ankle Osteoarthritis of right ankle or foot [place] Arthrodesis tibiofib ular joint proximal/distal ARTHRODESIS TIBIOFIBULAR JOINT PROXIMAL OR DISTAL Post-traumatic arthritis of right ankle Osteoarthritis of right ankle or foot [place] OR End: 08-31-2023 Choriogonadotropin ( test) [Presence] in Urine POCT , urine manually resulted Point of Care Testing Routine Once (Lab) for 1 Occurrences starting 08/31/2023 until 08/31/2023 [facility] Work Phone: Comment on above: Once (Lab) for 1 Occurrences starting until 08/31/2023 End: 08-31-2023 Continuous Pulse oximetry, In Phase 1 Continuous Pulse oximetry, In Phase 1 Respiratory Care Routine Continuous until discontinued starting 08/31/2023 [facility] Work Phone: Comment on above: Continuous until discontinued starting 0 08/31/2023 CT Ankle - right WO contrast CT ANKLE WO IVCON RIGHT Radiology Routine Post-operative state 11/27/2024 9:02 AM EDT [facility] Work Phone: Cytology Cervical or vaginal smear or scraping study THINPREP PAP Pathology and Cytology Routine Pap smear for cervical cancer screening Encounter for gynecological examination without abnormal finding 10/26/2023 9:[address] [facility] Service Area End: 07-23-2025 EGD DIAGNOSTIC EGD DIAGNOSTIC Endoscopy Routine Sensation of lump in throat Gastroesophageal reflux disease, unspecified whether esophagitis present Heartburn Hoarseness Early satiety Loss of appetite 1 Occurrences starting 07/23/2024 until 07/23/2025 [facility] Work Phone: Comment on above: 1 Occurrences starting 07/23/2024 until 07/23/2025 Glucose [Mass/volume ] in Serum or Plasma POCT Glucose Point of Care Testing - Docked Device Routine As needed (Lab) until discontinued starting 08/31/2023 [facility] Area Work Phone: Comment on above: As needed (Lab) until discontinued start ing 08/31/2023 End: 03-30-2024 HOME SLEEP APNEA TEST (HSAT) HOME SLEEP APNEA TEST (HSAT) Procedures Routine Palpitations 1 Occurrences starting 03/31/2023 until 03/30/2024 [facility] Work Phone: Comment on above: 1 Occurrences starting 03/31/2023 until 03/30/2024 Hysteroscopy endomet rial ablation Hysteroscopy with Ablation Tissue Menorrhagia with irregular cycle [facility] Work Phone: End: 08-22-2025 RF videography Hypopharynx and Esophagus Views W liquid and paste contrast PO during swallowing XR MODIFIED BARIUM SWALLOW W SPEECH THERAPY Radiology Routine Choking, initial encounter Chronic cough 1 Occurrences starting 07/23/2024 until 08/22/2025 [facility] Comment on above: 1 Occurrences starting 07/23/2024 until 08/22/2025 Surgical pathology study [facility] Service Area Work Phone: Comment on above: Release Upon Ordering for 1 Occurrences starting 08/31/2023 UA DIP B/O UA DIP B/O Lab R outine Bilateral flank pain Ordered: 03/18/2025 [facility] Work Phone: Comment on above: Ordered: 03/18/2025 End: 01-24-2025 US Lower extremity vein - right US DVT LOWER RIGHT Radiology Routine Pain in right lower leg 1 Occurrences starting 12/26/2023 until 01/24/2025 [facility] Work Phone: Comment on above: 1 Occurrences starting 12/26/2023 until 01/24/2025 US Lower extremity v ein - right US DVT LOWER RIGHT Radiology Routine Pain in right lower leg 12/26/2023 5:30 PM EDT [facility] End: 07-04-[address] [facility] Service Area Work Phone: Comment on above: Once for 1 Occurrences starting 07/04/20 until 07/04/2023 End: 04-27-2025 XR Ankle - right AP and Lateral and oblique XR ANKLE GENERAL 3V AP/LAT/OBL RIGHT Radiology Routine Closed fracture of right ankle with routine healing, subsequent encounter 1 Occurrences starting 03/28/2024 until 04/27/2025 [facility] Work Phone: Comment on above: 1 Occurrences starting 03/28/2024 until 04/27/2025 [facility] Immunizations Immunization Date Immunization Notes Care Provider Laura bobo 10-01-2019 hepatitis B vaccine, adult dosage Noelle Queden CLINICAL INFORMATICS SPEC.DIE DRAWING CHECKER Work Phone: [facility] 09-03-2019 hepatitis B vaccine, adult dosage Noelle Queden CLINICAL INFORMATICS SPEC.DIE DRAWING CHECKER Work Phone: [facility] 08-30-2019 hepatitis A vaccine, adult dosage Noelle Queden CLINICAL INFORMATICS SPEC.DIE DRAWING CHECKER Work Phone: [facility] 06-03-2011 hepatitis A vaccine, pediatric/adolescent dosage, 2 dose schedule Noelle Queden CLINICAL INFORMATICS SPEC.DIE DRAWING CHECKER Work Phone: [facility] 06-03-2011 human papilloma viru s vaccine, quadrivalent Noelle Queden CLINICAL INFORMATICS SPEC.DIE DRAWING CHECKER Work Phone: [facility] 06-03-2011 HPV, unspecified formulation Maria D Ortega MD Work Phone: [facility] Work Phone: 05-31-2011 influenza, seasonal, injectable, preservative free Noelle Queden CLINICAL INFORMATICS SPEC.DIE DRAWING CHECKER Work Phone: [facility] 05-31-2011 meningococcal polysaccharide (groups A, C, Y and W-135) diphtheria toxoid conjugate vaccine (MCV4P) Noelle Queden CLINICAL INFORMATICS SPEC.DIE DRAWING CHECKER Work Phone: [facility] 05-31-2011 tetanus toxoid, redu ulices diphtheria toxoid, and acellular pertussis vaccine, adsorbed Noelle Queden CLINICAL INFORMATICS SPEC.DIE DRAWING CHECKER Work Phone: [facility] 05-31-2011 influenza virus vacc ine, unspecified formulation Amarjit Storey DPM Work Phone: [facility] 05-26-2005 hepatitis B vaccine, pediatric or pediatric/adolescent dosage Noelle Queden CLINICAL INFORMATICS SPEC.DIE DRAWING CHECKER Work Phone: [facility] 05-26-2005 measles, mumps and rubella virus vaccine Noelle Queden CLINICAL INFORMATICS SPEC.DIE DRAWING CHECKER Work Phone: [facility] 04-05-1996 diphtheria, tetanus toxoids and acellular pertussis vaccine, unspecified formulation Noelle Queden CLINICAL INFORMATICS SPEC.DIE DRAWING CHECKER Work Phone: [facility] 04-05-1996 haemophilus influenz ae type b vaccine, PRP-T conjugate Noelle Queden CLINICAL INFORMATICS SPEC.DIE DRAWING CHECKER Work Phone: [facility] 04-05-1996 hepatitis B vaccine, pediatric or pediatric/adolescent dosage Noelle Queden CLINICAL INFORMATICS SPEC.DIE DRAWING CHECKER Work Phone: [facility] 04-05-1996 trivalent poliovirus vaccine, live, oral Noelle Queden CLINICAL INFORMATICS SPEC.DIE DRAWING CHECKER Work Phone: [facility] 04-05-1996 poliovirus vaccine, unspecified formulation Maria D Ortega MD [facility] Work Phone: 03-31-1994 measles, mumps and rubella virus vaccine Noelle Queden CLINICAL INFORMATICS SPEC.DIE DRAWING CHECKER Work Phone: [facility] 06-14-1993 diphtheria, tetanus toxoids and pertussis vaccine Noelle Queden CLINICAL INFORMATICS SPEC.DIE DRAWING CHECKER Work Phone: [facility] 06-14-1993 haemophilus influenz ae type b vaccine, PRP-T conjugate Noelle Queden CLINICAL INFORMATICS SPEC.DIE DRAWING CHECKER Work Phone: [facility] 03-31-1993 diphtheria, tetanus toxoids and pertussis vaccine Noelle Queden CLINICAL INFORMATICS SPEC.DIE DRAWING CHECKER Work Phone: [facility] 03-31-1993 haemophilus influenz ae type b vaccine, PRP-T conjugate Noelle Queden CLINICAL INFORMATICS SPEC.DIE DRAWING CHECKER Work Phone: [facility] 03-31-1993 trivalent poliovirus vaccine, live, oral Noelle Queden CLINICAL INFORMATICS SPEC.DIE DRAWING CHECKER Work Phone: [facility] 1992 diphtheria, tetanus toxoids and pertussis vaccine Noelle Loree CLINICAL INFORMATICS SPEC.DIE DRAWING CHECKER Work Phone: [facility] 1992 haemophilus influenz ae type b vaccine, PRP-T conjugate Noelle Loree CLINICAL INFORMATICS SPEC.DIE DRAWING CHECKER Work Phone: [facility] 1992 trivalent poliovirus vaccine, live, oral Noellezack Blanc CLINICAL INFORMATICS SPEC.DIE DRAWING CHECKER Work Phone: [facility] 1992 hepatitis B vaccine, pediatric or pediatric/adolescent dosage Noellezack Blanc CLINICAL INFORMATICS SPEC.DIE DRAWING CHECKER Work Phone: [facility] Payers Date Payer Category Payer Self-pay [id number] 2021 Unknown [facility] ALEJANDRO MCO [id number] 2021-Present [phone] [address] [place] [address] [facility] [id number] 2021 Unknown [id number] 2021 Medicaid (Managed Care) [facility] [id number] 2021 Unknown [id number] 2021 Unknown [id number] 2019 Medicaid [employer] [id number] 2019-Present [phone] [place] [address] Medicaid [id number] 2019 Medicaid [id number] 2016 Unknown SEL[employer] PAY INSURANCE [id number] 01 [id number] 1992 Unknown [id number] 1992 Unknown [id number] 1992 Unknown [id number] 1992 Unknown [id number] Unknown SELF PAY INSURANCE [id number] 00 [id number] Unknown [id number] Unknown [id number] Social History Date Type Detail Facility Start: 11-26-2010 End: 04-19-2022 Tobacco smoking status NHIS Never smoked tobacco [facility] Start: 11-26-2010 End: 04-19-2022 Tobacco use and exposure Smokeless tobacco non-user [facility] Start: 10-28-2021 End: 05-02-2025 Alcohol intake Current drinker of alcohol (finding) [facility] Start: 05-04-2021 History SDOH Alcohol Comment occ. [facility] Start: 1990 Sex Assigned At Not on file [facility] Start: 10-22-2021 End: 10-26-2023 Exposure to SARS-CoV-2 (event) Not sure [facility] Start: 01-09-2021 Tobacco smoking stat [facility] Unknown if ever smoked [facility] Work Phone: Start: 01-09-2021 Non-smoker [facility] Work Phone: Start: 1990 Sex Assigned At Female [facility] Work Phone: Start: 01-26-2023 End: 02-02-2023 History of Social function [facility] Start: 01-26-2023 End: 02-02-2023 Tobacco use panel [facility] Start: 08-08-2013 Adult Depression Screening Assessment 1 [facility] Start: 07-03-2023 End: 08-31-2023 Alcohol intake Ex-drinker (finding) [facility] Work Phone: Has the [employer], or Consult A Doctor threatened to shut off services in your home in past 12Mo No [facility] (I/We) worried wheth er (my/our) food would run out before (I/we) got money to buy more. Never true [facility] Start: 08-08-2024 Alcohol Comment occ.< once monthly [facility] Medical Equipment Procedure Code Equipment Code Equipment Origin al Text Equipment Identifier Dates Quickset Kit, 8 Cc - [id number] Start: 11-15-2017 Post 11mm 30d External Fixation Outrigger Mr Abraham Nonsterile - [id number] Start: 07-18-2021 Post 11mm 30d External Fixation Outrigger Mr Abraham Nonsterile - [id number] Start: 07-18-2021 Dek-Pm-O-Kind Im plant - [id number] Start: 01-26-2011 Comment on above: Description: CANCELL OUS SCREW Ugc-Vi-X-Kind Im plant - [id number] Start: 08-22-2013 Comment on above: Description: 34MM ST D ACUTRAK 2 SCREW Hbq-Is-X-Kind Im plant - [id number] Start: 08-22-2013 Comment on above: Description: 34mm st d acutrak 2 scre Avp-Eq-N-Kind Im plant - [id number] Start: 11-15-2017 Comment on above: Description: 2.5 RANDI RO SCREW Clamp Large Exte rnal Fixation 6 Position Pin Nonsterile - [id number] Start: 07-18-2021 Clamp Large Exte rnal Fixation Combination Clip On Self Hold Nonsterile - [id number] Start: 07-18-2021 Pin Steinmann 6m m Stainless Steel 225mm Fixation Transfixation Mr - [id number] Start: 07-18-2021 Plate Lcp Combi Stainless Steel 106mm Bone 7 Hole Low Profile Limit Contact - [id number] Start: 07-27-2021 Plate Lcp T Stai nless Steel 58mm Bone 3 Hole Head 7 Hole Shaft Low Profile - [id number] Start: 07-27-2021 Plate Dcp Lc-Dcp 12mm 1/3 Tube Stainless Steel [id number] .5mm Bone 7 Hole - [id number] Start: 07-27-2021 Rony 11mm Carbon Fiber 350mm External Fixation Self Drilling Nonsterile - [id number] Start: 07-18-2021 Rony 11mm Carbon Fiber 350mm External Fixation Self Drilling Nonsterile - [id number] Start: 07-18-2021 Screw Schanz 5mm Xlong Blunt [place] Stainless Steel 150mm 50mm External - [id number] Start: 07-18-2021 Screw Dcp Lc-Dcp 3.5mm 6mm Full Thread Hexagon Stainless Steel 48mm Bone - [id number] Start: 07-27-2021 Screw Lcp 2.4mm 4mm T8 Low Profile Stainless Steel 14mm Bone Self Tap - [id number] Start: 07-27-2021 Screw Lc-Dcp Dcp 3.5mm 6mm Full Thread Stainless Steel 50mm Bone Self - [id number] Start: 07-27-2021 Screw Lcp 2.4mm 4mm Stainless Steel 16mm Bone T8 Stardrive Self Tap Low - [id number] Start: 07-27-2021 Screw Dcp Lc-Dcp 3.5mm Stainless Steel 28mm Bone Self Tapping Hexagonal - [id number] Start: 07-27-2021 Screw Lc-Dcp Dcp 3.5mm 6mm Full Thread Stainless Steel 32mm Bone Self - [id number] Start: 07-27-2021 Screw Lc-Dcp Dcp 3.5mm 6mm Full Thread Stainless Steel 34mm Bone Self - [id number] Start: 07-27-2021 Screw Lc-Dcp Dcp 3.5mm 6mm Full Thread Stainless Steel 36mm Bone Self - [id number] Start: 07-27-2021 Screw Lcp 3.5mm Full Thread T15 Stainless Steel 46mm Bone Fix Angle Lock - [id number] Start: 07-27-2021 Graft 44+ Mm Fem oral Head Bone Allograft Frozen - [id number] Start: 08-16-2024 Substitute Mastergraft Calcium Phosphate Collagen Bone Graft Void Filler - [id number] Start: 08-16-2024 Graft Bn Augment Inj 3.0cc - [id number] Start: 08-16-2024 Cortex Screw Nadine 4.0mm / [id number] Start: 08-16-2024 Anterior Tt Plat e Right - [id number] Start: 08-16-2024 Screw Bone 4mm 2 8mm Titanium Self Tap Lock Nonsterile Axsos 3 - [id number] Start: 08-16-2024 Screw Bone 4mm 4 0mm Titanium Self Tap Lock Nonsterile Latex Free Axsos 3 - [id number] Start: 08-16-2024 Screw Bone 4mm 3 2mm Axsos 3 Titanium Cortex Self Tap Lock Nonsterile - [id number] Start: 08-16-2024 Screw Bone 4mm 5 5mm Titanium Self Tap Lock Nonsterile Axsos 3 - [id number] Start: 08-16-2024 Screw Bone 7mm 5 5mm Fixos Compression Headless Nonsterile - [id number] Start: 08-16-2024 Screw Bone 4mm 3 6mm Titanium Self Tap Lock Nonsterile Axsos 3 - [id number] Start: 08-16-2024 Functional Status Date Assessment Result Facility 08-19-2024 Are you deaf, or do you have serious difficulty hearing No 08/19/2024 9:35 AM Katty Hampton, ELIZABETH No [facility] 08-19-2024 Are you blind, or do you have serious difficulty seeing, even when wearing glasses No 08/19/2024 9:35 AM Katty Hampton, ELIZABETH No [facility] 08-19-2024 Do you have serious difficulty walking or climbing stairs No 08/19/2024 9:35 AM Katty Hampton, ELIZABETH No [facility] 08-19-2024 Do you have difficul ty dressing or bathing No 08/19/2024 9:35 AM Katty Hampton, ELIZABETH No [facility] 08-19-2024 Because of a physica l, mental, or emotional condition, do you have difficulty doing errands alone such as visiting a physician's office or shopping No 08/19/2024 9:35 AM Katty Hampton, ELIZABETH No [facility] Mental Status Date Assessment Result Facility 08-19-2024 Because of a physica l, mental, or emotional condition, do you have serious difficulty concentrating, remembering, or making decisions No 08/19/2024 9:35 AM Katty Hampton, ELIZABETH No [facility] Clinical Notes 07-19-2021 to 05-02-2025 Patient InstructionsNoelle Blanc APRN.[facility] - 05/02/2025 8:12 AM Jaden Gamino Tech - 04/24/2025 2:58 PM Amarjit Chavez DPM - 04/24/2025 2:15 PM EDTPatient Instructions Note Date & Type Note Facility 05-02-2025 Instructions Noelle Blanc APRN.DIE DRAWING CHECKER - 05/02/2025 8:23 AM EDT Vitamins for Headache Prevention Vitamin B2/Riboflavin 400 mg once a day Magnesium 400-600 mg once a day documented in this encounter [facility] 05-02-2025 Note HNO ID: [id number] Author: NOELLE BLANC APRN.RIN Service: ? Author Type: Nurse Practitioner Type: Progress Notes Filed: 05/02/2025 08:37 Note Text: CHIEF COMPLAINT: The patient is a 34-year-old female with migraine and tension-type headaches, presenting for follow-up of headache management. I reviewed past medical, surgical, social, and family histories today and updated chart. Allergies, chronic medications, and supplements were also reviewed. Recording using [employer] for [employer] software for draft documentation of the visit was discussed with the patient/authorized assistance representative; all questions welcomed and answered. Patient/authorized assistance representative agreed to proceed Migraines: - Yanira Thompson noticed improvement in severity and frequency of headaches since increasing amitriptyline dose to 25 mg ~3-4 weeks ago. - Occasionally wakes up with headaches, but they are manageable. - Yanira used Maxalt twice in one day during the first weekend of dose transition; has not used it since. - Yanira reports grogginess when taking amitriptyline too late at night. - Noticed improvement in sleep quality. - No recent facial numbness. - Occasional dizziness with rapid position changes. - Heart rate has been lower, around 50-60 bpm; previously was 100-120 bpm. - Persistent brain fog, unchanged in severity. - Yanira describes a severe migraine last weekend with ocular pain and nausea, lasting 3-4 days. - Photophobia at night, requiring sunglasses while driving. OV 04/11/25: Headaches: - Worsening headaches over the past two weeks, with daily occurrence in the last week. - Describes pain as vice powder compounder sensation around the head. - Current pain level 2-3/10; can escalate to 9/10. - Previously tried Imitrex with variable effectiveness; currently taking amitriptyline 10 mg but only restarted it 2 weeks ago. - Using Tylenol with minimal relief. - Denies current migraine-level intensity; able to get out of bed. - Denies sore throat or ear pain. Vision Changes: - Intermittent vision changes, including difficulty seeing out of the right eye, followed by the left eye. - Describes vision changes as similar to having something in the eye that temporarily obstructs vision. Brain Fog: - Reports significant brain fog and difficulty concentrating. - Episodes of word-finding difficulty and memory lapses, including not recalling driving to work. - Describes feeling off and unable to focus. Sleep Disturbances: - Reports poor sleep quality, feeling unrested despite going to bed early. - Describes sleep as restless and feels like garbage upon waking. - Taking melatonin to aid sleep. - Previous sleep study two years ago showed mild findings, but not diagnosed with sleep apnea. Paresthesia: - Recent episode of paresthesia on the right side of the face, described as a goosebumps sensation lasting 10-15 seconds. 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 Dizziness: - Recent episode of dizziness while mowing the lawn, requiring her to sit down. - Reports drinking water and using Liquid I.V. for hydration. - Blood pressure during the episode was 104/xx mmHg; heart rate was 110-120 bpm, which decreased after resting. - Denies palpitations. Ear Drainage: - Reports clear ear drainage, described as feeling wet in the ears. - Uses Q-tips to manage the sensation. PAST MEDICAL HISTORY Diagnosis Date Acute right ankle pain Allergies Asthma (HCC) as a kid Delayed emergence from general anesthesia Generalized anxiety disorder Hammer toe Migraines Palpitations Plantar fasciitis PONV (postoperative nausea and vomiting) PAST SURGICAL HISTORY Procedure Laterality Date ANKLE SURGERY HX Right 07/27/2021 APPLICATION UNIPLANE EXTERNAL FIXATION SYSTEM Right 07/18/2021 CLTX FX W8 BRG ARTCLR PRTN DSTL TIB W/SKEL TRACJ Right 07/18/2021 CORRECTION HAMMERTOE Right 2010, 2013 2018 EXTRACTION ERUPTED TOOTH 2016 wisdom teeth PAST SURGICAL HISTORY OF Right 10/23/2023 1. Removal internal fixation, right tibia PROCEDURE Bilateral 2010 pins in big toes PT ED OBSTETRICS AND GYNECOLOGY 08/2023 ENDOMETRIAL ABLATION SALPINGECTOMY COMPLETE/PARTIAL UNI/BI SPX 2020 SOCIAL HISTORY[1] ALLERGIES No Known Allergies Family History Problem Relation Age of Onset other (Circulation problems) Mother other (High Blood Pressure) Mother other (fibromyalgia) Mother Hypertension Mother Cancer Mother cervical cancer Allergies Mother Bee venom, seasonal Depression Mother Anxiety disorder Mother Migraines Mother Thyroid Mother ADD/ADHD Father Migraines Sister Anxiety disorder Sister Depression Sister Asthma Sister Obesity Sister Thyroid Sister other (Gallbladder) Sister Asthma Brother Alzheimer's Disease Brother Diabetes Brother Cancer Maternal Grandmother Arthritis Maternal Grandmother COPD Maternal Grandmother other (ibs) Materna (more content not included)... [facility] 05-02-2025 History of Present illness Narrative CHIEF COMPLAINT: The patient is a 34-year-old female with migraine and tension-type headaches, presenting for follow-up of headache management. I reviewed past medical, surgical, social, and family histories today and updated chart. Allergies, chronic medications, and supplements were also reviewed. Recording using [employer] for [employer] software for draft documentation of the visit was discussed with the patient/authorized assistance representative; all questions welcomed and answered. Patient/authorized assistance representative agreed to proceed Migraines: - Yanira Thompson noticed improvement in severity and frequency of headaches since increasing amitriptyline dose to 25 mg ~3-4 weeks ago. - Occasionally wakes up with headaches, but they are manageable. - Yanira used Maxalt twice in one day during the first weekend of dose transition; has not used it since. - Yanira reports grogginess when taking amitriptyline too late at night. - Noticed improvement in sleep quality. - No recent facial numbness. - Occasional dizziness with rapid position changes. - Heart rate has been lower, around 50-60 bpm; previously was 100-120 bpm. - Persistent brain fog, unchanged in severity. - Yanira describes a severe migraine last weekend with ocular pain and nausea, lasting 3-4 days. - Photophobia at night, requiring sunglasses while driving. OV 04/11/25: Headaches: - Worsening headaches over the past two weeks, with daily occurrence in the last week. - Describes pain as vice powder compounder sensation around the head. - Current pain level 2-3/10; can escalate to 9/10. - Previously tried Imitrex with variable effectiveness; currently taking amitriptyline 10 mg but only restarted it 2 weeks ago. - Using Tylenol with minimal relief. - Denies current migraine-level intensity; able to get out of bed. - Denies sore throat or ear pain. Vision Changes: - Intermittent vision changes, including difficulty seeing out of the right eye, followed by the left eye. - Describes vision changes as similar to having something in the eye that temporarily obstructs vision. Brain Fog: - Reports significant brain fog and difficulty concentrating. - Episodes of word-finding difficulty and memory lapses, including not recalling driving to work. - Describes feeling off and unable to focus. Sleep Disturbances: - Reports poor sleep quality, feeling unrested despite going to bed early. - Describes sleep as restless and feels like garbage upon waking. - Taking melatonin to aid sleep. - Previous sleep study two years ago showed mild findings, but not diagnosed with sleep apnea. Paresthesia: - Recent episode of paresthesia on the right side of the face, described as a goosebumps sensation lasting 10-15 seconds. 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 Dizziness: - Recent episode of dizziness while mowing the lawn, requiring her to sit down. - Reports drinking water and using Liquid I.V. for hydration. - Blood pressure during the episode was 104/xx mmHg; heart rate was 110-120 bpm, which decreased after resting. - Denies palpitations. Ear Drainage: - Reports clear ear drainage, described as feeling wet in the ears. - Uses Q-tips to manage the sensation. PAST MEDICAL HISTORY Diagnosis Date Acute right ankle pain Allergies Asthma (HCC) as a kid Delayed emergence from general anesthesia Generalized anxiety disorder Hammer toe Migraines Palpitations Plantar fasciitis PONV (postoperative nausea and vomiting) PAST SURGICAL HISTORY Procedure Laterality Date ANKLE SURGERY HX Right 07/27/2021 APPLICATION UNIPLANE EXTERNAL FIXATION SYSTEM Right 07/18/2021 CLTX FX W8 BRG ARTCLR PRTN DSTL TIB W/SKEL TRACJ Right 07/18/2021 CORRECTION HAMMERTOE Right 2010, 2013 2017 EXTRACTION ERUPTED TOOTH 2016 wisdom teeth PAST SURGICAL HISTORY OF Right 10/23/2023 1. Removal internal fixation, right tibia PROCEDURE Bilateral 2010 pins in big toes PT ED OBSTETRICS & GYNECOLOGY 08/2023 ENDOMETRIAL ABLATION SALPINGECTOMY COMPLETE/PARTIAL UNI/BI SPX 2020 SOCIAL HISTORY[1] ALLERGIES No Known Allergies Family History Problem Relation Age of Onset other (Circulation problems) Mother other (High Blood Pressure) Mother other (fibromyalgia) Mother Hypertension Mother Cancer Mother cervical cancer Allergies Mother Bee venom, seasonal Depression Mother Anxiety disorder Mother Migraines Mother Thyroid Mother ADD/ADHD Father Migraines Sister Anxiety disorder Sister Depression Sister Asthma Sister Obesity Sister Thyroid Sister other (Gallbladder) Sister Asthma Brother Alzheimer's Disease Brother Diabetes Brother Cancer Maternal Grandmother Arthritis Maternal Grandmother COPD Maternal Grandmother other (ibs) Maternal Grandfather Obesity Paternal Grandmother other (colitis) Paternal Grandmother other (GERD) Daughter ADD/ADHD Son Allergies Son several other (gerd) Son Colon Cancer Other Current Outpatient Medications Medication Sig Dispense Refill amitriptyline (ELAVIL) 25 mg tablet Take 1 tablet by mouth daily at bedtime. 90 tablet 0 rizatriptan (MAXALT) 10 mg tablet Take 1 tablet by mouth as needed for migraine headache (see administration instructions). at onset of headache. May repeat after 2 hours. Do not exceed 30 mg per day. 12 tablet 0 cyclobenzaprine (FLEXERIL) 5 mg tablet Take 1-2 tablets by mouth two times a day as needed for muscle spasm. 10 tablet 0 meloxicam (MOBIC) 15 mg tablet Take 1 tablet by mouth once daily. 30 tablet 2 albuterol HFA (PROVENTIL HFA, VENTOLIN HFA) 90 mcg/actuation inhaler Inhale 2 Puffs as instructed every 6 hours as needed. 1 Each 0 atenolol (TENORMIN) 25 mg tablet Take 0.5 tablets by mouth once daily as needed. For HR > 100 30 tablet 0 No current facility-administered medications for this visit. Review of Systems Head: (+) headaches Eyes: (+) photophobia Ears/Nose/Mouth/Throat: (+) ear wetness sensation, (-) ear drainage Cardiovascular: (+) bradycardia, (-) tachycardia Neurological: (+) dizziness, (+) brain fog, (-) facial numbness BP 122/62 Pulse 64 Temp (Src) 97.6 (Oral) Resp 17 Ht 5' 8 (1.73m) Wt 237 lb (107.5kg) SpO2 99% BMI 36.04 kg/(m^2). Physical Exam GENERAL: NAD, alert and oriented. EARS: External ears normal, canals clear, TM's normal. LUNGS: Clear to auscultation bilaterally, no wheezes/rhonchi/rales. HEART: Regular rate and rhythm, no murmurs. NEURO: Awake, alert and oriented x3, normal gait, no involuntary motions. No visits with results within 1 Day(s) from this visit. Latest known visit with results is: Appointment on 04/11/2025 Component Date Value Ref Range Status WBC 04/11/2025 6.17 3.70 - 11.00 k/uL Final RBC 04/11/2025 4.59 3.90 - 5.20 m/uL Final Hemoglobin 04/11/2025 13.7 11.5 - 15.5 g/dL Final Hematocrit 04/11/2025 41.1 36.0 - 46.0 % Final MCV 04/11/2025 89.5 80.0 - 100.0 fL Final MCH 04/11/2025 29.8 26.0 - 34.0 pg Final MCHC 04/11/2025 33.3 30.5 - 36.0 g/dL Final RDW-CV 04/11/2025 13.5 11.5 - 15.0 % Final Platelet Count 04/11/2025 210 150 - 400 k/uL Final MPV 04/11/2025 11.2 9.0 - 12.7 fL Final Neutrophils % 04/11/2025 58.6 % Final Abs Neut 04/11/2025 3.61 1.45 - 7.50 k/uL Final Lymphocytes % 04/11/2025 28.4 % Final Abs Lymph 04/11/2025 1.75 1.00 - 4.00 k/uL Final Monocytes % 04/11/2025 9.7 % Final Abs [place] 04/11/2025 0.60 <0.87 k/uL Final Eosinophils % 04/11/2025 2.4 % Final Abs Eosin 04/11/2025 0.15 <0.46 k/uL Final Basophils % 04/11/2025 0.6 % Final Abs Baso 04/11/2025 0.04 <0.11 k/uL Final Immature Granulocytes % 04/11/2025 0.3 % Final Abs Immature Gran 04/11/2025 <0.03 <0.10 k/uL Final Diff Type 04/11/2025 Auto Final Protein, Total 04/11/2025 7.0 6.3 - 8.0 g/dL Final Albumin 04/11/2025 4.1 3.9 - 4.9 g/dL Final Calcium, Total 04/11/2025 8.9 8.5 - 10.2 mg/dL Final Bilirubin, Total 04/11/2025 0.6 0.2 - 1.3 mg/dL Final Alkaline Phosphatase 04/11/2025 78 34 - 123 U/L Final AST 04/11/2025 30 13 - 35 U/L Final ALT 04/11/2025 35 7 - 38 U/L Final Glucose 04/11/2025 95 74 - 99 mg/dL Final The [place] [employer] (ADA) provides guidance for cutoff values for fasting glucose and random glucose. The ADA defines fasting as no caloric intake for at least 8 hours. Fasting plasma glucose results between 100 to 125 mg/dL indicate increased risk for diabetes (prediabetes). Fasting plasma glucose results greater than or equal to 126 mg/dL meet the criteria for diagnosis of diabetes. In the absence of unequivocal hyperglycemia, results should be confirmed by repeat testing. In a patient with classic symptoms of hyperglycemia or hyperglycemic crisis, random plasma glucose results greater than or equal to 200 mg/dL meet the criteria for diagnosis of diabetes. Reference: Standards of Medical Care in Diabetes 2016, [place] [employer]. Diabetes Care. 2016.39(Suppl 1). BUN 04/11/2025 16 7 - 21 mg/dL Final Creatinine 04/11/2025 0.85 0.58 - 0.96 mg/dL Final Sodium 04/11/2025 141 136 - 144 mmol/L Final Potassium 04/11/2025 4.1 3.7 - 5.1 mmol/L Final Chloride 04/11/2025 106 98 - 107 mmol/L Final CO2 04/11/2025 24 22 - 30 mmol/L Final Anion Gap 04/11/2025 11 8 - 15 mmol/L Final Estimated Glomerular Filtration Ra* 04/11/2025 93 >=60 mL/min/1.73m Final Estimated Glomerular Filtration Rate (eGFR) is calculated using the 2020 CKD-EPI creatinine equation. This equation utilizes serum creatinine, sex, and age as parameters. The creatinine assay has traceable calibration to isotope dilution-mass spectrometry. Refer to KDIGO guidelines for clinical interpretation. In patients with unstable renal function, e.g. those with acute kidney injury, the eGFR may not accurately reflect actual GFR. TSH 04/11/2025 2.230 0.270 - 4.200 mIU/L Final If the patient is , TSH reference range varies by gestational period: First Trimester (weeks 9-12): 0.180-2.990 mIU/L Second Trimester: 0.110-3.980 mIU/L Third Trimester: 0.480-4.710 mIU/L Jorge Salter et al. A Practical Approach for the Verifications and Determination of Site- and Trimester-Specific Reference Intervals for Thyroid Function tests in . Thyroid, 2019:29:3:412-420. Heidi Adame, et al. 2017 Guidelines of the [place] Thy[employer] Association for the Diagnosis and Management of Thyroid Disease during and the . Thyroid, 2017:27:3:315-389. Vitamin B12 04/11/2025 463 232 - 1,245 pg/mL Final ASSESSMENT/PLAN: 1. Migraine without aura and without status migrainosus, not intractable (G43.009) 2. Chronic tension-type headache, intractable (G44.221) 3. Visual disturbances (H53.9) - Improvement in headache frequency and severity noted with increased amitriptyline; Maxalt used only during initial transition. - Continue current amitriptyline dose 25 mg at bedtime - Advised patient to take amitriptyline earlier in the evening to minimize next-day grogginess. - Discussed potential for further improvement with continued therapy. - Start magnesium oxide 400 mg daily. - Follow-up in 6 weeks; advised to contact sooner if symptoms worsen or become unmanageable. 4. Dizziness and giddiness (R42) - Dizziness with positional changes noted; heart rate currently 50-60 bpm, previously 100-120 bpm. - Continue monitoring symptoms. New medication(s) prescribed today: None. Counseling completed in adopting health behaviors such as avoiding excessive alcohol use, avoid tobacco use, improve nutrition, and engage in physical activities. Copy of written care plan, clinical summary, treatment plan, new medications, goals, and self management requirements were given to patient. Noelle Blanc APRN.DIE DRAWING CHECKER [1] Social History Tobacco Use Smoking status: Never Smokeless tobacco: Never Vaping Use Vaping status: Never Used Substance Use Topics Alcohol use: Yes Comment: occ.< once monthly Drug use: Never documented in this encounter [facility] 04-24-2025 Note HNO ID: [id number] Author: JADEN FRANCES Tech Service: ? Author Type: Button Tufting Machine Operator Type: Progress Notes Filed: 04/25/2025 10:16 Note Text: April 24, 2025 TYPE OF BRACE BEING REQUESTED: PROCARE NIGHT SPLINT LARGE L-CODE: L4397 BRYANT: 172.00 DIAGNOSIS: RIGHT ANKLE INSURANCE COMPANY: [employer] PRE-AUTHORIZATION NECESSARY: NO PRE-AUTH #: NO SPOKE WITH: PER DR. STOREY [facility] 04-24-2025 History of Present illness Narrative April 24, 2025 TYPE OF BRACE BEING REQUESTED: PROCARE NIGHT SPLINT LARGE L-CODE: L4397 BRYANT: 172.00 DIAGNOSIS: RIGHT ANKLE INSURANCE COMPANY: [employer] PRE-AUTHORIZATION NECESSARY: NO PRE-AUTH #: NO SPOKE WITH: PER DR. STOREY DOS: 08/16/2024 POD: 8 months 8 days Procedure: Ankle Arthrodesis, Right Distal Tibiofibular Joint Arthrodesis, Right This 34 year old female presents for a follow-up and reevaluation. Patient states she is doing well. She is starting to have pain on bottom of heel and on lateral side of her right foot. She admits using a frozen water bottle and takes mobic as needed. She is asking about getting a new order for custom orthotics. Denies any other pedal complaints PAST MEDICAL HISTORY Diagnosis Date Acute right ankle pain Allergies Asthma (HCC) as a kid Delayed emergence from general anesthesia Generalized anxiety disorder Hammer toe Migraines Palpitations Plantar fasciitis PONV (postoperative nausea and vomiting) Current Outpatient Medications Medication Sig amitriptyline (ELAVIL) 25 mg tablet Take 1 tablet by mouth daily at bedtime. rizatriptan (MAXALT) 10 mg tablet Take 1 tablet by mouth as needed for migraine headache (see administration instructions). at onset of headache. May repeat after 2 hours. Do not exceed 30 mg per day. cyclobenzaprine (FLEXERIL) 5 mg tablet Take 1-2 tablets by mouth two times a day as needed for muscle spasm. meloxicam (MOBIC) 15 mg tablet Take 1 tablet by mouth once daily. albuterol HFA (PROVENTIL HFA, VENTOLIN HFA) 90 mcg/actuation inhaler Inhale 2 Puffs as instructed every 6 hours as needed. atenolol (TENORMIN) 25 mg tablet Take 0.5 tablets by mouth once daily as needed. For HR > 100 No current facility-administered medications for this visit. ALLERGIES No Known Allergies Objective: Patient presents weightbearing as tolerated to right leg in regular shoegear Problem focus examination to the right lower extremity: Incision site is well healed. Absent motion at the right ankle joint secondary to arthrodesis. Arthrodesis is stable. Adequate rom through the midfoot. No pain to palpation of right ankle operative site. Minimal discomfort to dorsal lateral right midfoot in the area of the 4th and 5th tarsometatarsal joints. No erythema, edema or effusion to this area. No significant discomfort or crepitation with range of motion of the 4th and 5th tarsometatarsal joints. Patient has no pain to palpation of calf. The calf is soft, supple and nontender without evidence of DVT. Negative Charli's test. Satisfactory alignment is noted. Pedal pulses are palpable. Capillary refill time is less than three seconds to all digits. Sensations are intact to light touch. Assessment: Satisfactory post-operative progress Compensatory midfoot overload, right foot, status post ankle arthrodesis Plantar fasciitis right Plan: The patient was educated on clinical examination findings, postoperative prognosis and protocol. All questions were answered to patient's apparent satisfaction. - Mobic 15 mg to be taken as needed. - Discussed cortisone injection on bottom of heel, prednisone, anti-inflammatories. - Recommends working on stretching as much as she could. - Night splint fitted and dispensed. - Custom orthotic order dispensed. Follow up 8 weeks Scribe Attestation: By signing my name below, I, Mary Dean MA, attest that this documentation has been prepared under the direction and in the presence of Amarjit Storey DPM. Electronically Signed: Mary Dean MA, Yossi. April 24, 2025 2:43 PM. Clinician Attestation Statement: The information in this document, created by the paramedical aide for me, accurately reflects the services I personally performed and the decisions made by me. I have reviewed and approved this document for accuracy. Amarjit Storey DPM, FACFAS REVIEW OF SYSTEMS: GENERAL: Well developed, well nourished. No acute distress PAIN: Pain Right ankle CARDIOVASCULAR: Leg swelling Right and Palpitations Yes MSK: Positive for joint swelling SKIN: Negative for lesions, rash, itching, metal sensitivity NEURO: Negative for seizure, trauma, numbness/tingling of extremities. ENDOCRINE: Negative for diabetic associated symptoms HEMATOLOGY: Negative for excessive bleeding, clots, bleeding disorders. documented in this encounter [facility] 04-24-2025 Note HNO ID: [id number] Author: AMARJIT STOREY DPM Service: ? Author Type: Physician Type: Progress Notes Filed: 04/25/2025 10:16 Note Text: DOS: 08/16/2024 POD: 8 months 8 days Procedure: Ankle Arthrodesis, Right Distal Tibiofibular Joint Arthrodesis, Right This 34 year old female presents for a follow-up and reevaluation. Patient states she is doing well. She is starting to have pain on bottom of heel and on lateral side of her right foot. She admits using a frozen water bottle and takes mobic as needed. She is asking about getting a new order for custom orthotics. Denies any other pedal complaints PAST MEDICAL HISTORY Diagnosis Date Acute right ankle pain Allergies Asthma (HCC) as a kid Delayed emergence from general anesthesia Generalized anxiety disorder Hammer toe Migraines Palpitations Plantar fasciitis PONV (postoperative nausea and vomiting) Current Outpatient Medications Medication Sig amitriptyline (ELAVIL) 25 mg tablet Take 1 tablet by mouth daily at bedtime. rizatriptan (MAXALT) 10 mg tablet Take 1 tablet by mouth as needed for migraine headache (see administration instructions). at onset of headache. May repeat after 2 hours. Do not exceed 30 mg per day. cyclobenzaprine (FLEXERIL) 5 mg tablet Take 1-2 tablets by mouth two times a day as needed for muscle spasm. meloxicam (MOBIC) 15 mg tablet Take 1 tablet by mouth once daily. albuterol HFA (PROVENTIL HFA, VENTOLIN HFA) 90 mcg/actuation inhaler Inhale 2 Puffs as instructed every 6 hours as needed. atenolol (TENORMIN) 25 mg tablet Take 0.5 tablets by mouth once daily as needed. For HR > 100 No current facility-administered medications for this visit. ALLERGIES No Known Allergies Objective: Patient presents weightbearing as tolerated to right leg in regular shoegear Problem focus examination to the right lower extremity: Incision site is well healed. Absent motion at the right ankle joint secondary to arthrodesis. Arthrodesis is stable. Adequate rom through the midfoot. No pain to palpation of right ankle operative site. Minimal discomfort to dorsal lateral right midfoot in the area of the 4th and 5th tarsometatarsal joints. No erythema, edema or effusion to this area. No significant discomfort or crepitation with range of motion of the 4th and 5th tarsometatarsal joints. Patient has no pain to palpation of calf. The calf is soft, supple and nontender without evidence of DVT. Negative Charli's test. Satisfactory alignment is noted. Pedal pulses are palpable. Capillary refill time is less than three seconds to all digits. Sensations are intact to light touch. Assessment: Satisfactory post-operative progress Compensatory midfoot overload, right foot, status post ankle arthrodesis Plantar fasciitis right Plan: The patient was educated on clinical examination findings, postoperative prognosis and protocol. All questions were answered to patient's apparent satisfaction. - Mobic 15 mg to be taken as needed. - Discussed cortisone injection on bottom of heel, prednisone, anti-inflammatories. - Recommends working on stretching as much as she could. - Night splint fitted and dispensed. - Custom orthotic order dispensed. Follow up 8 weeks Scribe Attestation: By signing my name below, I, Mary Dean MA, attest that this documentation has been prepared under the direction and in the presence of Amarjit Storey DPM. Electronically Signed: Mary Dean MA, Scribe. April 24, 2025 2:43 PM. Clinician Attestation Statement: The information in this document, created by the paramedical aide for me, accurately reflects the services I personally performed and the decisions made by me. I have reviewed and approved this document for accuracy. Amarjit Storey DPM, FACFAS [facility] 04-24-2025 Note HNO ID: [id number] Author: JORGE BASHIR LPN Service: ? Author Type: Licensed Nurse Type: Progress Notes Filed: 04/25/2025 10:16 Note Text: REVIEW OF SYSTEMS: GENERAL: Well developed, well nourished. No acute distress PAIN: Pain Right ankle CARDIOVASCULAR: Leg swelling Right and Palpitations Yes MSK: Positive for joint swelling SKIN: Negative for lesions, rash, itching, metal sensitivity NEURO: Negative for seizure, trauma, numbness/tingling of extremities. ENDOCRINE: Negative for diabetic associated symptoms HEMATOLOGY: Negative for excessive bleeding, clots, bleeding disorders. [facility] 04-17-2025 Telephone encounter Note Patient called stating she woke up with congestion and would like to know what she can take OTC without interacting with her medications Kalpana Dockery MA [facility] 04-17-2025 Miscellaneous Notes Patient called stating she woke up with congestion and would like to know what she can take OTC without interacting with her medications Kalpana Dockery MA documented in this encounter [facility] 04-11-2025 Note HNO ID: [id number] Author: KALPANA DOCKERY MA Service: ? Author Type: Professional Benefits Sales Consultant Type: Progress Notes Filed: 04/11/2025 09:20 Note Text: Patient has been identified by name and date of : Yes Gayle is here for an injection of Toradol (Ketoralac) 30 mg Dose: 1 mL Route: Intramuscular Given without incident. Site: Buttocks, Right Lot #: [id number] [facility] #: [id number] Expiration Date: 08/20/2025 PCP present in clinic at time of injection. Kalpana Dockery MA [facility] 04-11-2025 History of Present illness Narrative Patient has been identified by name and date of : Yes Gayle is here for an injection of Toradol (Ketoralac) 30 mg Dose: 1 mL Route: Intramuscular Given without incident. Site: Buttocks, Right Lot #: [id number] [facility] #: [id number] Expiration Date: 08/20/2025 PCP present in clinic at time of injection. Kalpana Dockery MA CHIEF COMPLAINT: Yanira Thompson is a 34-year-old female with a history of headaches, presenting for worsening headaches, brain fog, and sleep disturbances. I reviewed past medical, surgical, social, and family histories today and updated chart. Allergies, chronic medications, and supplements were also reviewed. Recording using [employer] software for draft documentation of the visit was discussed with the patient/authorized assistance representative; all questions welcomed and answered. Patient/authorized assistance representative agreed to proceed Headaches: - Worsening headaches over the past two weeks, with daily occurrence in the last week. - Describes pain as vice powder compounder sensation around the head. - Current pain level 2-3/10; can escalate to 9/10. - Previously tried Imitrex with variable effectiveness; currently taking amitriptyline 10 mg but only restarted it 2 weeks ago. - Using Tylenol with minimal relief. - Denies current migraine-level intensity; able to get out of bed. - Denies sore throat or ear pain. Vision Changes: - Intermittent vision changes, including difficulty seeing out of the right eye, followed by the left eye. - Describes vision changes as similar to having something in the eye that temporarily obstructs vision. Brain Fog: - Reports significant brain fog and difficulty concentrating. - Episodes of word-finding difficulty and memory lapses, including not recalling driving to work. - Describes feeling off and unable to focus. Sleep Disturbances: - Reports poor sleep quality, feeling unrested despite going to bed early. - Describes sleep as restless and feels like garbage upon waking. - Taking melatonin to aid sleep. - Previous sleep study two years ago showed mild findings, but not diagnosed with sleep apnea. Paresthesia: - Recent episode of paresthesia on the right side of the face, described as a goosebumps sensation lasting 10-15 seconds. 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 Dizziness: - Recent episode of dizziness while mowing the lawn, requiring her to sit down. - Reports drinking water and using Liquid I.V. for hydration. - Blood pressure during the episode was 104/xx mmHg; heart rate was 110-120 bpm, which decreased after resting. - Denies palpitations. Ear Drainage: - Reports clear ear drainage, described as feeling wet in the ears. - Uses Q-tips to manage the sensation. PAST MEDICAL HISTORY Diagnosis Date Acute right ankle pain Allergies Asthma (HCC) as a kid Delayed emergence from general anesthesia Generalized anxiety disorder Hammer toe Migraines Palpitations Plantar fasciitis PONV (postoperative nausea and vomiting) PAST SURGICAL HISTORY Procedure Laterality Date ANKLE SURGERY HX Right 07/27/2021 APPLICATION UNIPLANE EXTERNAL FIXATION SYSTEM Right 07/18/2021 CLTX FX W8 BRG ARTCLR PRTN DSTL TIB W/SKEL TRACJ Right 07/18/2021 CORRECTION HAMMERTOE Right 2010, 2013 2017 EXTRACTION ERUPTED TOOTH 2016 wisdom teeth PAST SURGICAL HISTORY OF Right 10/23/2023 1. Removal internal fixation, right tibia PROCEDURE Bilateral 2010 pins in big toes PT ED OBSTETRICS & GYNECOLOGY 08/2023 ENDOMETRIAL ABLATION SALPINGECTOMY COMPLETE/PARTIAL UNI/BI SPX 2020 SOCIAL HISTORY[1] ALLERGIES No Known Allergies Family History Problem Relation Age of Onset other (Circulation problems) Mother other (High Blood Pressure) Mother other (fibromyalgia) Mother Hypertension Mother Cancer Mother cervical cancer Allergies Mother Bee venom, seasonal Depression Mother Anxiety disorder Mother Migraines Mother Thyroid Mother ADD/ADHD Father Migraines Sister Anxiety disorder Sister Depression Sister Asthma Sister Obesity Sister Thyroid Sister other (Gallbladder) Sister Asthma Brother Alzheimer's Disease Brother Diabetes Brother Cancer Maternal Grandmother Arthritis Maternal Grandmother COPD Maternal Grandmother other (ibs) Maternal Grandfather Obesity Paternal Grandmother other (colitis) Paternal Grandmother other (GERD) Daughter ADD/ADHD Son Allergies Son several other (gerd) Son Colon Cancer Other Current Outpatient Medications Medication Sig Dispense Refill cyclobenzaprine (FLEXERIL) 5 mg tablet Take 1-2 tablets by mouth two times a day as needed for muscle spasm. 10 tablet 0 meloxicam (MOBIC) 15 mg tablet Take 1 tablet by mouth once daily. 30 tablet 2 albuterol HFA (PROVENTIL HFA, VENTOLIN HFA) 90 mcg/actuation inhaler Inhale 2 Puffs as instructed every 6 hours as needed. 1 Each 0 atenolol (TENORMIN) 25 mg tablet Take 0.5 tablets by mouth once daily as needed. For HR > 100 30 tablet 0 amitriptyline (ELAVIL) 25 mg tablet Take 1 tablet by mouth daily at bedtime. 90 tablet 0 rizatriptan (MAXALT) 10 mg tablet Take 1 tablet by mouth as needed for migraine headache (see administration instructions). at onset of headache. May repeat after 2 hours. Do not exceed 30 mg per day. 12 tablet 0 No current facility-administered medications for this visit. Review of Systems Constitutional: (+) fatigue, (+) insomnia Head: (+) headache Eyes: (+) vision changes, (-) photophobia Ears/Nose/Mouth/Throat: (+) ear pain, (+) ear discharge, (+) hearing difficulty Cardiovascular: (-) palpitations Neurological: (+) dizziness, (+) difficulty concentrating, (+) memory impairment, (+) word-finding difficulty, (+) right facial paresthesia BP 122/64 Pulse 67 Temp (Src) 98.1 (Oral) Resp 19 Ht 5' 8 (1.73m) Wt 244 lb (110.7kg) SpO2 99% BMI 37.11 kg/(m^2). Physical Exam GENERAL: NAD, alert and oriented. SKIN: Unremarkable, no rash or skin lesions. HEAD: Normocephalic. EYES: PERRLA, EOMI, conjunctiva clear. EARS: External ears normal, canals clear, TMs normal. Slight fluid behind the left tympanic membrane. NOSE/SINUSES: Nares normal. Septum midline. OROPHARYNX: Lips, mucosa, and tongue normal, good dentition. No oral lesions noted. NECK: Supple, no lymphadenopathy, normal thyroid, no carotid bruits. LUNGS: Clear to auscultation bilaterally, no wheezes/rhonchi/rales. HEART: Regular rate and rhythm, no murmurs. No ectopy. EXTREMITIES: Normal, no deformities, no skin discoloration, no edema. NEURO: Awake, alert and oriented x3, cranial nerves II-XII grossly intact, normal gait, no involuntary motions. Labs: - Fingerstick Glucose: Normal - (January) TSH Tests: - 12 lead EKG: Normal - Sleep Study: Mild changes, not conclusive for sleep apnea Latest Ref Rng 08/19/2024 11/07/2024 02/13/2025 WBC 3.70 - 11.00 k/uL 8.17 RBC 3.90 - 5.20 m/uL 4.18 Hemoglobin 11.5 - 15.5 g/dL 12.8 Hematocrit 36.0 - 46.0 % 38.9 MCV 80.0 - 100.0 fL 93.1 MCH 26.0 - 34.0 pg 30.6 MCHC 30.5 - 36.0 g/dL 32.9 RDW-CV 11.5 - 15.0 % 12.6 Platelet Count 150 - 400 k/uL 150 MPV 9.0 - 12.7 fL 10.6 Absolute nRBC <0.01 k/uL <0.01 Glucose 74 - 99 mg/dL 115 (H) BUN 7 - 21 mg/dL 15 Creatinine 0.58 - 0.96 mg/dL 0.82 Sodium 136 - 144 mmol/L 134 (L) Potassium 3.7 - 5.1 mmol/L 3.8 Chloride 98 - 107 mmol/L 102 CO2 22 - 30 mmol/L 22 Anion Gap 8 - 15 mmol/L 10 Calcium 8.5 - 10.2 mg/dL 8.4 (L) eGFR >=60 mL/min/1.73m 98 THYROID PEROXIDASE ANTIBODY <5.6 IU/mL 41.2 (H) Free T4 0.9 - 1.7 ng/dL 1.0 TSH 0.270 - 4.200 mIU/L 2.650 T3 79 - 165 ng/dL 142 Legend: (H) High (L) Low ASSESSMENT/PLAN: 1. Migraine without aura and without status migrainosus, not intractable (G43.009) 2. Chronic tension-type headache, intractable (G44.221) - Chronic daily headaches worsening over the past 2 weeks, described as a vice powder compounder sensation; prior Imitrex use provided inconsistent relief. - Currently on amitriptyline 10 mg nightly, but not consistently; no prior Topamax use documented. - Increase amitriptyline to 25 mg nightly; instructed to take consistently and not too late in the evening to avoid next-day sedation. - Start Maxalt at onset of migraine; discussed potential for drowsiness. - Administer Toradol injection today for acute pain relief; advised to hold Mobic until Monday due to additive NSAID effect. - Discussed newer migraine medications (Ubrelvy, Qulipta) as future options if current regimen fails, but require documentation of prior triptan use for insurance approval. - Order CBC, CMP, TSH, and B12 to rule out metabolic or nutritional contributors. - Follow-up in 3 weeks to reassess headache frequency, severity, and medication efficacy. 3. Dizziness and giddiness (R42) 4. Visual disturbances (H53.9) - Episodic dizziness and visual disturbances (transient visual changes, brain fog, word-finding difficulty, and amnesia for driving routes) may be related to headaches or other underlying causes. - Order CBC, CMP, TSH, and B12 to rule out metabolic or nutritional contributors. 5. 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 New medication(s) prescribed today: Yes: See above. Discussed new medication dosage, usage, goals of therapy, and side effects. Patient has been apprised of any potential drug interactions to be aware of. Patient expresses understanding. Counseling completed in adopting health behaviors such as avoiding excessive alcohol use, avoid tobacco use, improve nutrition, and engage in physical activities. Copy of written care plan, clinical summary, treatment plan, new medications, goals, and self management requirements were given to patient. Noelle Blanc APRN.CNP [1] Social History Tobacco Use Smoking status: Never Smokeless tobacco: Never Vaping Use Vaping status: Never Used Substance Use Topics Alcohol use: Yes Comment: occ.< once monthly Drug use: Never documented in this encounter [facility] 04-11-2025 Note HNO ID: [id number] Author: NOELLE BLANC APRN.CNP Service: ? Author Type: Nurse Practitioner Type: Progress Notes Filed: 04/11/2025 09:20 Note Text: CHIEF COMPLAINT: Yanira Thompson is a 34-year-old female with a history of headaches, presenting for worsening headaches, brain fog, and sleep disturbances. I reviewed past medical, surgical, social, and family histories today and updated chart. Allergies, chronic medications, and supplements were also reviewed. Recording using [employer] for [employer] software for draft documentation of the visit was discussed with the patient/authorized assistance representative; all questions welcomed and answered. Patient/authorized assistance representative agreed to proceed Headaches: - Worsening headaches over the past two weeks, with daily occurrence in the last week. - Describes pain as vice powder compounder sensation around the head. - Current pain level 2-3/10; can escalate to 9/10. - Previously tried Imitrex with variable effectiveness; currently taking amitriptyline 10 mg but only restarted it 2 weeks ago. - Using Tylenol with minimal relief. - Denies current migraine-level intensity; able to get out of bed. - Denies sore throat or ear pain. Vision Changes: - Intermittent vision changes, including difficulty seeing out of the right eye, followed by the left eye. - Describes vision changes as similar to having something in the eye that temporarily obstructs vision. Brain Fog: - Reports significant brain fog and difficulty concentrating. - Episodes of word-finding difficulty and memory lapses, including not recalling driving to work. - Describes feeling off and unable to focus. Sleep Disturbances: - Reports poor sleep quality, feeling unrested despite going to bed early. - Describes sleep as restless and feels like garbage upon waking. - Taking melatonin to aid sleep. - Previous sleep study two years ago showed mild findings, but not diagnosed with sleep apnea. Paresthesia: - Recent episode of paresthesia on the right side of the face, described as a goosebumps sensation lasting 10-15 seconds. 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 Dizziness: - Recent episode of dizziness while mowing the lawn, requiring her to sit down. - Reports drinking water and using Liquid I.V. for hydration. - Blood pressure during the episode was 104/xx mmHg; heart rate was 110-120 bpm, which decreased after resting. - Denies palpitations. Ear Drainage: - Reports clear ear drainage, described as feeling wet in the ears. - Uses Q-tips to manage the sensation. PAST MEDICAL HISTORY Diagnosis Date Acute right ankle pain Allergies Asthma (HCC) as a kid Delayed emergence from general anesthesia Generalized anxiety disorder Hammer toe Migraines Palpitations Plantar fasciitis PONV (postoperative nausea and vomiting) PAST SURGICAL HISTORY Procedure Laterality Date ANKLE SURGERY HX Right 07/27/2021 APPLICATION UNIPLANE EXTERNAL FIXATION SYSTEM Right 07/18/2021 CLTX FX W8 BRG ARTCLR PRTN DSTL TIB W/SKEL TRACJ Right 07/18/2021 CORRECTION HAMMERTOE Right 2010, 2013 2017 EXTRACTION ERUPTED TOOTH 2016 wisdom teeth PAST SURGICAL HISTORY OF Right 10/23/2023 1. Removal internal fixation, right tibia PROCEDURE Bilateral 2010 pins in big toes PT ED OBSTETRICS AND GYNECOLOGY 08/2023 ENDOMETRIAL ABLATION SALPINGECTOMY COMPLETE/PARTIAL UNI/BI SPX 2020 SOCIAL HISTORY[1] ALLERGIES No Known Allergies Family History Problem Relation Age of Onset other (Circulation problems) Mother other (High Blood Pressure) Mother other (fibromyalgia) Mother Hypertension Mother Cancer Mother cervical cancer Allergies Mother Bee venom, seasonal Depression Mother Anxiety disorder Mother Migraines Mother Thyroid Mother ADD/ADHD Father Migraines Sister Anxiety disorder Sister Depression Sister Asthma Sister Obesity Sister Thyroid Sister other (Gallbladder) Sister Asthma Brother Alzheimer's Disease Brother Diabetes Brother Cancer Maternal Grandmother Arthritis Maternal Grandmother COPD Maternal Grandmother other (ibs) Maternal Grandfather Obesity Paternal Grandmother other (colitis) Paternal Grandmother other (GERD) Daughter ADD/ADHD Son Allergies Son several other (gerd) Son Colon Cancer Other Current Outpatient Medications Medication Sig Dispense Refill cyclobenzaprine (FLEXERIL) 5 mg tablet Take 1-2 tablets by mouth two times a day as needed for muscle spasm. 10 tablet 0 meloxicam (MOBIC) 15 mg tablet Take 1 tablet by mouth once daily. 30 tablet 2 albuterol HFA (PROVENTIL HFA, VENTOLIN HFA) 90 mcg/actuation inhaler Inhale 2 Puffs as instructed every 6 hours as needed. 1 Each 0 atenolol (TENORMIN) 25 mg tablet Take 0.5 tablets by mouth once daily as needed. For HR > 100 30 tablet 0 amitriptyline (ELAVIL) 25 mg tablet Take 1 tablet by mouth daily at bedtime. 90 tablet 0 rizatriptan (MAXA (more content not included)... [facility] 03-18-2025 Note HNO ID: [id number] Author: NOELLE BLANC APRN.DIE DRAWING CHECKER Service: ? Author Type: Nurse Practitioner Type: Progress Notes Filed: 03/18/2025 10:20 Note Text: CHIEF COMPLAINT: Yanira Thompson is a 34-year-old female with a history of Adrian's thyroiditis, asthma, anxiety, depression, SVT, and GERD presenting with bilateral ear pain and lower back pain. I reviewed past medical, surgical, social, and family histories today and updated chart. Allergies, chronic medications, and supplements were also reviewed. Lower Back Pain: - Pain across Josefinas lower back, x several days. - No radiation to the legs; denies numbness and tingling in legs. - Pain is intermittent, with severe episodes causing difficulty in movement. - Heating pad provides minimal relief. - Recent participation in a dodgeball game; unsure if pain is muscular. - Denies history of nephrolithiasis. - Recent prescription for meloxicam, not yet started. Urinary Symptoms: - Foul-smelling urine noticed concurrently with back pain. - Denies hematuria. - History of pyelonephritis, previously started as a UTI without typical symptoms. - Recent nausea when lying down at night, no emesis. Bilateral Ear Pain: - Onset 2 days ago, not constant. - Denies sneezing or sinus congestion. - Uses Flonase PRN for allergies. Adrian's Thyroiditis: - Recent labs showed thyroid levels at target. PAST MEDICAL HISTORY Diagnosis Date Acute right ankle pain Allergies Asthma (HCC) as a kid Delayed emergence from general anesthesia Generalized anxiety disorder Hammer toe Migraines Palpitations Plantar fasciitis PONV (postoperative nausea and vomiting) PAST SURGICAL HISTORY Procedure Laterality Date ANKLE SURGERY HX Right 07/27/2021 APPLICATION UNIPLANE EXTERNAL FIXATION SYSTEM Right 07/18/2021 CLTX FX W8 BRG ARTCLR PRTN DSTL TIB W/SKEL TRACJ Right 07/18/2021 CORRECTION HAMMERTOE Right 2010, 2013 2018 EXTRACTION ERUPTED TOOTH 2016 wisdom teeth PAST SURGICAL HISTORY OF Right 10/23/2023 1. Removal internal fixation, right tibia PROCEDURE Bilateral 2010 pins in big toes PT ED OBSTETRICS AND GYNECOLOGY 08/2023 ENDOMETRIAL ABLATION SALPINGECTOMY COMPLETE/PARTIAL UNI/BI SPX 2020 Social History Tobacco Use Smoking status: Never Smokeless tobacco: Never Vaping Use Vaping status: Never Used Substance Use Topics Alcohol use: Yes Comment: occ.< once monthly Drug use: Never ALLERGIES No Known Allergies Family History Problem Relation Age of Onset other (Circulation problems) Mother other (High Blood Pressure) Mother other (fibromyalgia) Mother Hypertension Mother Cancer Mother cervical cancer Allergies Mother Bee venom, seasonal Depression Mother Anxiety disorder Mother Migraines Mother Thyroid Mother ADD/ADHD Father Migraines Sister Anxiety disorder Sister Depression Sister Asthma Sister Obesity Sister Thyroid Sister other (Gallbladder) Sister Asthma Brother Alzheimer's Disease Brother Diabetes Brother Cancer Maternal Grandmother Arthritis Maternal Grandmother COPD Maternal Grandmother other (ibs) Maternal Grandfather Obesity Paternal Grandmother other (colitis) Paternal Grandmother other (GERD) Daughter ADD/ADHD Son Allergies Son several other (gerd) Son Colon Cancer Other Current Outpatient Medications Medication Sig Dispense Refill meloxicam (MOBIC) 15 mg tablet Take 1 tablet by mouth once daily. 30 tablet 2 amitriptyline (ELAVIL) 10 mg tablet Take 1 tablet by mouth daily at bedtime. 90 tablet 0 SUMAtriptan (IMITREX) 25 mg tablet Take 1 tablet (25 mg) by mouth as needed for migraine headache (see administration instructions) (at onset of headache. May repeat after 2 hours.). May repeat dose after 2 hours if needed. Maximum daily dose is 200 mg per day. 12 tablet 1 albuterol HFA (PROVENTIL HFA, VENTOLIN HFA) 90 mcg/actuation inhaler Inhale 2 Puffs as instructed every 6 hours as needed. 1 Each 0 atenolol (TENORMIN) 25 mg tablet Take 0.5 tablets by mouth once daily as needed. For HR > 100 30 tablet 0 cyclobenzaprine (FLEXERIL) 5 mg tablet Take 1-2 tablets by mouth two times a day as needed for muscle spasm. 10 tablet 0 No current facility-administered medications for this visit. Review of Systems Constitutional: (+) fatigue, (+) insomnia, (-) fever Ears/Nose/Mouth/Throat: (+) bilateral ear pain, (-) sneezing, (-) nasal congestion Gastrointestinal: (+) nausea, (-) vomiting Genitourinary: (+) malodorous urine, (-) hematuria Musculoskeletal: (+) lower back pain Neurological: (+) brain fog, (-) lower extremity paresthesias Psychiatric: (+) social withdrawal, (-) depressed mood BP 118/70 Pulse 75 Temp (Src) 97.9 (Oral) Resp 18 Ht 5' 8 (1.73m) Wt 237 lb 6.4 oz (107.7kg) SpO2 97% BMI 36.10 kg/(m2). Physical Exam Abdominal: Palpations: Abdomen is soft. Tenderness: There is no abdominal tenderness. Musculoske (more content not included)... [facility] 03-18-2025 History of Present illness Narrative Images from the original note were not included. CHIEF COMPLAINT: Yanira Thompson is a 34-year-old female with a history of Adrian's thyroiditis, asthma, anxiety, depression, SVT, and GERD presenting with bilateral ear pain and lower back pain. I reviewed past medical, surgical, social, and family histories today and updated chart. Allergies, chronic medications, and supplements were also reviewed. Lower Back Pain: - Pain across Yanira's lower back, x several days. - No radiation to the legs; denies numbness and tingling in legs. - Pain is intermittent, with severe episodes causing difficulty in movement. - Heating pad provides minimal relief. - Recent participation in a dodgeball game; unsure if pain is muscular. - Denies history of nephrolithiasis. - Recent prescription for meloxicam, not yet started. Urinary Symptoms: - Foul-smelling urine noticed concurrently with back pain. - Denies hematuria. - History of pyelonephritis, previously started as a UTI without typical symptoms. - Recent nausea when lying down at night, no emesis. Bilateral Ear Pain: - Onset 2 days ago, not constant. - Denies sneezing or sinus congestion. - Uses Flonase PRN for allergies. Adrian's Thyroiditis: - Recent labs showed thyroid levels at target. PAST MEDICAL HISTORY Diagnosis Date Acute right ankle pain Allergies Asthma (HCC) as a kid Delayed emergence from general anesthesia Generalized anxiety disorder Hammer toe Migraines Palpitations Plantar fasciitis PONV (postoperative nausea and vomiting) PAST SURGICAL HISTORY Procedure Laterality Date ANKLE SURGERY HX Right 07/27/2021 APPLICATION UNIPLANE EXTERNAL FIXATION SYSTEM Right 07/18/2021 CLTX FX W8 BRG ARTCLR PRTN DSTL TIB W/SKEL TRACJ Right 07/18/2021 CORRECTION HAMMERTOE Right 2010, 2013 2017 EXTRACTION ERUPTED TOOTH 2016 wisdom teeth PAST SURGICAL HISTORY OF Right 10/23/2023 1. Removal internal fixation, right tibia PROCEDURE Bilateral 2011 pins in big toes PT ED OBSTETRICS & GYNECOLOGY 08/2023 ENDOMETRIAL ABLATION SALPINGECTOMY COMPLETE/PARTIAL UNI/BI SPX 2020 Social History Tobacco Use Smoking status: Never Smokeless tobacco: Never Vaping Use Vaping status: Never Used Substance Use Topics Alcohol use: Yes Comment: occ.< once monthly Drug use: Never ALLERGIES No Known Allergies Family History Problem Relation Age of Onset other (Circulation problems) Mother other (High Blood Pressure) Mother other (fibromyalgia) Mother Hypertension Mother Cancer Mother cervical cancer Allergies Mother Bee venom, seasonal Depression Mother Anxiety disorder Mother Migraines Mother Thyroid Mother ADD/ADHD Father Migraines Sister Anxiety disorder Sister Depression Sister Asthma Sister Obesity Sister Thyroid Sister other (Gallbladder) Sister Asthma Brother Alzheimer's Disease Brother Diabetes Brother Cancer Maternal Grandmother Arthritis Maternal Grandmother COPD Maternal Grandmother other (ibs) Maternal Grandfather Obesity Paternal Grandmother other (colitis) Paternal Grandmother other (GERD) Daughter ADD/ADHD Son Allergies Son several other (gerd) Son Colon Cancer Other Current Outpatient Medications Medication Sig Dispense Refill meloxicam (MOBIC) 15 mg tablet Take 1 tablet by mouth once daily. 30 tablet 2 amitriptyline (ELAVIL) 10 mg tablet Take 1 tablet by mouth daily at bedtime. 90 tablet 0 SUMAtriptan (IMITREX) 25 mg tablet Take 1 tablet (25 mg) by mouth as needed for migraine headache (see administration instructions) (at onset of headache. May repeat after 2 hours.). May repeat dose after 2 hours if needed. Maximum daily dose is 200 mg per day. 12 tablet 1 albuterol HFA (PROVENTIL HFA, VENTOLIN HFA) 90 mcg/actuation inhaler Inhale 2 Puffs as instructed every 6 hours as needed. 1 Each 0 atenolol (TENORMIN) 25 mg tablet Take 0.5 tablets by mouth once daily as needed. For HR > 100 30 tablet 0 cyclobenzaprine (FLEXERIL) 5 mg tablet Take 1-2 tablets by mouth two times a day as needed for muscle spasm. 10 tablet 0 No current facility-administered medications for this visit. Review of Systems Constitutional: (+) fatigue, (+) insomnia, (-) fever Ears/Nose/Mouth/Throat: (+) bilateral ear pain, (-) sneezing, (-) nasal congestion Gastrointestinal: (+) nausea, (-) vomiting Genitourinary: (+) malodorous urine, (-) hematuria Musculoskeletal: (+) lower back pain Neurological: (+) brain fog, (-) lower extremity paresthesias Psychiatric: (+) social withdrawal, (-) depressed mood BP 118/70 Pulse 75 Temp (Src) 97.9 (Oral) Resp 18 Ht 5' 8 (1.73m) Wt 237 lb 6.4 oz (107.7kg) SpO2 97% BMI 36.10 kg/(m^2). Physical Exam Abdominal: Palpations: Abdomen is soft. Tenderness: There is no abdominal tenderness. Musculoskeletal: Lumbar back: Tenderness present. No swelling, edema or bony tenderness. Normal range of motion. Back: Neurological: General: No focal deficit present. Motor: Motor function is intact. Gait: Gait is intact. GENERAL: NAD, alert and oriented. SKIN: Unremarkable, no rash or skin lesions. HEAD: Normocephalic. EARS: External ears normal, canals clear, TM's normal. LUNGS: Clear to auscultation bilaterally, no wheezes/rhonchi/rales. HEART: Regular rate and rhythm, no murmurs. No ectopy. EXTREMITIES: Normal, no deformities, no skin discoloration, no edema. BACK: CVA tenderness noted bilaterally. NEURO: Awake, alert and oriented x3 No visits with results within 1 Day(s) from this visit. Latest known visit with results is: Appointment on 02/13/2025 Component Date Value Ref Range Status Free T4 02/13/2025 1.0 0.9 - 1.7 ng/dL Final TSH 02/13/2025 2.650 0.270 - 4.200 mIU/L Final If the patient is , TSH reference range varies by gestational period: First Trimester (weeks 9-12): 0.180-2.990 mIU/L Second Trimester: 0.110-3.980 mIU/L Third Trimester: 0.480-4.710 mIU/L Jorge Salter et al. A Practical Approach for the Verifications and Determination of Site- and Trimester-Specific Reference Intervals for Thyroid Function tests in . Thyroid, 2019:29:3:412-420. Hiedi E, et al. 2017 Guidelines of the [place] [employer] for the Diagnosis and Management of Thyroid Disease during and the . Thyroid, 2017:27:3:315-389. T3 02/13/2025 142 79 - 165 ng/dL Final Labs: - (October) TPO: Elevated - TPO: Normal Latest Ref Rng 03/18/2025 GLUCOSE UA (POCT) Negative mg/dL Negative BILIRUBIN UA (POCT) Negative Negative KETONE UA (POCT) Negative mg/dL Negative SPECIFIC GRAVITY UA (POCT) 1.005 - 1.030 1.025 HEMOGLOBIN/BLOOD UA (POCT) Negative Negative PH UA (POCT) 4.5 - 8.0 6.0 PROTEIN UA (POCT) Negative mg/dL Negative UROBILINOGEN UA (POCT) Normal E.U./dL 0.2 NITRITE UA (POCT) Negative Negative LEUKOCYTES UA (POCT) Negative Negative COLOR UA (POCT) Yellow CLARITY UA (POCT) Clear ASSESSMENT/PLAN: 1. Acute bilateral low back pain without sciatica (M54.50) 2. Bilateral flank pain (R10.9) 3. Foul smelling urine (R82.90) - Acute bilateral low back pain with CVA tenderness and bilateral flank pain; differential includes musculoskeletal strain versus UTI or nephrolithiasis. - No history of nephrolithiasis; prior history of pyelonephritis. - Order urinalysis to evaluate for infection or hematuria. - May order renal ultrasound if urinalysis suggests infection or hematuria. - Start meloxicam as previously prescribed for anti-inflammatory effect. - Advised use of heating pad and to push fluids. UA was negative today. 4. Acute ear pain, bilateral (H92.03) - Bilateral ear pain without signs of infection on exam; likely related to allergies. - Advised use of Flonase to reduce inflammation and open eustachian tubes. - May use Benadryl or Sudafed if feeling blocked. New medication(s) prescribed today: None. Counseling completed in adopting health behaviors such as avoiding excessive alcohol use, avoid tobacco use, improve nutrition, and engage in physical activities. Copy of written care plan, clinical summary, treatment plan, new medications, goals, and self management requirements were given to patient. Recording using [employer] for [employer] software for draft documentation of the visit was discussed with the patient/authorized assistance representative; all questions welcomed and answered. Patient/authorized assistance representative agreed to proceed Noelle Blanc APRN.DIE DRAWING CHECKER documented in this encounter [facility] 03-12-2025 Note HNO ID: [id number] Author: AMARJIT STOREY DPM Service: ? Author Type: Physician Type: Progress Notes Filed: 03/13/2025 13:54 Note Text: DOS: 08/16/2024 Procedure: Ankle Arthrodesis, Right Distal Tibiofibular Joint Arthrodesis, Right This 34 year old female presents for a follow-up and reevaluation. Patient states they are doing well with respect to her ankle fusion. She notes that she has been recently having some discomfort over the right midfoot. She points to the dorsal lateral midfoot as the area of discomfort. She notes that about 6 weeks ago she had significant discomfort that made it difficult to walk. 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 She notes that shortly after her training the right foot symptoms went away. She notes that her symptoms are minimal at this point. She is currently not taking any anti-inflammatory medication. PAST MEDICAL HISTORY Diagnosis Date Acute right ankle pain Allergies Asthma (HCC) as a kid Delayed emergence from general anesthesia Generalized anxiety disorder Hammer toe Migraines Palpitations Plantar fasciitis PONV (postoperative nausea and vomiting) Current Outpatient Medications Medication Sig naltrexone-bupropion (CONTRAVE) 8-90 mg ER tablet Take 1 tablet daily for 7 days, then 1 tablet twice a day for 7 days, then 2 tablets in the morning and 1 tablet in the evening for 7 days, and then 2 tablets twice daily thereafter. amitriptyline (ELAVIL) 10 mg tablet Take 1 tablet by mouth daily at bedtime. SUMAtriptan (IMITREX) 25 mg tablet Take 1 tablet (25 mg) by mouth as needed for migraine headache (see administration instructions) (at onset of headache. May repeat after 2 hours.). May repeat dose after 2 hours if needed. Maximum daily dose is 200 mg per day. predniSONE (DELTASONE) 10 mg tablet Dispense 25 tablets of Prednisone 10 mg for a 13 day course of therapy. Please take as directed: 1 tablet every 8 hours for the first 4 days, followed by 1 tablet every 12 hours for the next 4 days, followed by 1 tablet daily for the final 5 days. albuterol HFA (PROVENTIL HFA, VENTOLIN HFA) 90 mcg/actuation inhaler Inhale 2 Puffs as instructed every 6 hours as needed. atenolol (TENORMIN) 25 mg tablet Take 0.5 tablets by mouth once daily as needed. For HR > 100 gabapentin (NEURONTIN) 300 mg capsule Take 1 capsule by mouth three times a day for 30 days. gabapentin (NEURONTIN) 300 mg capsule Take 1 capsule by mouth daily at bedtime for 30 days. omeprazole (PRILOSEC) 40 mg capsule Take 1 capsule by mouth once daily. No current facility-administered medications for this visit. ALLERGIES No Known Allergies Objective: Patient presents weightbearing as tolerated to right leg in regular shoegear Problem focus examination to the right lower extremity: Incision site is well healed. Absent motion at the right ankle joint secondary to arthrodesis. Arthrodesis is stable. Adequate rom through the midfoot. No pain to palpation of right ankle operative site. Minimal discomfort to dorsal lateral right midfoot in the area of the 4th and 5th tarsometatarsal joints. No erythema, edema or effusion to this area. No significant discomfort or crepitation with range of motion of the 4th and 5th tarsometatarsal joints. Patient has no pain to palpation of calf. The calf is soft, supple and nontender without evidence of DVT. Negative Charli's test. Satisfactory alignment is noted. Pedal pulses are palpable. Capillary refill time is less than three seconds to all digits. Sensations are intact to light touch. Assessment: Satisfactory post-operative progress Compensatory midfoot overload, right foot, status post ankle arthrodesis Plan: The patient was educated on clinical examination findings, postoperative prognosis and protocol. All questions were answered to patient's apparent satisfaction. - Educated patient on her right foot symptoms related to being compensatory after her ankle fusion. - Recommend carbon fiber insert. She was referred to [employer] shoes. - Mobic 15 mg to be taken as needed. - RTC 4 weeks. Amarjit Storey DPM, [facility] 03-12-2025 History of Present illness Narrative DOS: 08/16/2024 Procedure: Ankle Arthrodesis, Right Distal Tibiofibular Joint Arthrodesis, Right This 34 year old female presents for a follow-up and reevaluation. Patient states they are doing well with respect to her ankle fusion. She notes that she has been recently having some discomfort over the right midfoot. She points to the dorsal lateral midfoot as the area of discomfort. She notes that about 6 weeks ago she had significant discomfort that made it difficult to walk. 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 She notes that shortly after her training the right foot symptoms went away. She notes that her symptoms are minimal at this point. She is currently not taking any anti-inflammatory medication. PAST MEDICAL HISTORY Diagnosis Date Acute right ankle pain Allergies Asthma (HCC) as a kid Delayed emergence from general anesthesia Generalized anxiety disorder Hammer toe Migraines Palpitations Plantar fasciitis PONV (postoperative nausea and vomiting) Current Outpatient Medications Medication Sig naltrexone-bupropion (CONTRAVE) 8-90 mg ER tablet Take 1 tablet daily for 7 days, then 1 tablet twice a day for 7 days, then 2 tablets in the morning and 1 tablet in the evening for 7 days, and then 2 tablets twice daily thereafter. amitriptyline (ELAVIL) 10 mg tablet Take 1 tablet by mouth daily at bedtime. SUMAtriptan (IMITREX) 25 mg tablet Take 1 tablet (25 mg) by mouth as needed for migraine headache (see administration instructions) (at onset of headache. May repeat after 2 hours.). May repeat dose after 2 hours if needed. Maximum daily dose is 200 mg per day. predniSONE (DELTASONE) 10 mg tablet Dispense 25 tablets of Prednisone 10 mg for a 13 day course of therapy. Please take as directed: 1 tablet every 8 hours for the first 4 days, followed by 1 tablet every 12 hours for the next 4 days, followed by 1 tablet daily for the final 5 days. albuterol HFA (PROVENTIL HFA, VENTOLIN HFA) 90 mcg/actuation inhaler Inhale 2 Puffs as instructed every 6 hours as needed. atenolol (TENORMIN) 25 mg tablet Take 0.5 tablets by mouth once daily as needed. For HR > 100 gabapentin (NEURONTIN) 300 mg capsule Take 1 capsule by mouth three times a day for 30 days. gabapentin (NEURONTIN) 300 mg capsule Take 1 capsule by mouth daily at bedtime for 30 days. omeprazole (PRILOSEC) 40 mg capsule Take 1 capsule by mouth once daily. No current facility-administered medications for this visit. ALLERGIES No Known Allergies Objective: Patient presents weightbearing as tolerated to right leg in regular shoegear Problem focus examination to the right lower extremity: Incision site is well healed. Absent motion at the right ankle joint secondary to arthrodesis. Arthrodesis is stable. Adequate rom through the midfoot. No pain to palpation of right ankle operative site. Minimal discomfort to dorsal lateral right midfoot in the area of the 4th and 5th tarsometatarsal joints. No erythema, edema or effusion to this area. No significant discomfort or crepitation with range of motion of the 4th and 5th tarsometatarsal joints. Patient has no pain to palpation of calf. The calf is soft, supple and nontender without evidence of DVT. Negative Charli's test. Satisfactory alignment is noted. Pedal pulses are palpable. Capillary refill time is less than three seconds to all digits. Sensations are intact to light touch. Assessment: Satisfactory post-operative progress Compensatory midfoot overload, right foot, status post ankle arthrodesis Plan: The patient was educated on clinical examination findings, postoperative prognosis and protocol. All questions were answered to patient's apparent satisfaction. - Educated patient on her right foot symptoms related to being compensatory after her ankle fusion. - Recommend carbon fiber insert. She was referred to [facility]. - Mobic 15 mg to be taken as needed. - RTC 4 weeks. Amarjit Storey DPM, FACFAS documented in this encounter [facility] 12-11-2024 Note HNO ID: [id number] Author: AMARJIT STOREY DPM Service: ? Author Type: Physician Type: Progress Notes Filed: 01/01/2025 13:24 Note Text: DOS: 08/16/2024 POD: 4 months Procedure: Ankle Arthrodesis, Right Distal Tibiofibular Joint Arthrodesis, Right This 34 year old female presents for a post op visit. Patient states they are doing well. Pain is well controlled. She states she has been pain-free and not utilizing any medications. Has been weightbearing as tolerated to the right lower extremity in regular shoegear. Obtained CT scan since last visit. Presents today to review results. Would like to return to full duty at work. Denies any current nausea, vomiting, fever, chills, shortness of breath, chest pain or calf pain. Denies any other pedal complaints PAST MEDICAL HISTORY Diagnosis Date Acute right ankle pain Allergies Asthma (HCC) as a kid Delayed emergence from general anesthesia Generalized anxiety disorder Hammer toe Migraines Palpitations Plantar fasciitis PONV (postoperative nausea and vomiting) Current Outpatient Medications Medication Sig naltrexone-bupropion (CONTRAVE) 8-90 mg ER tablet Take 1 tablet by mouth once daily. amitriptyline (ELAVIL) 10 mg tablet Take 1 tablet by mouth daily at bedtime. SUMAtriptan (IMITREX) 25 mg tablet Take 1 tablet (25 mg) by mouth as needed for migraine headache (see administration instructions) (at onset of headache. May repeat after 2 hours.). May repeat dose after 2 hours if needed. Maximum daily dose is 200 mg per day. omeprazole (PRILOSEC) 40 mg capsule Take 1 capsule by mouth once daily. albuterol HFA (PROVENTIL HFA, VENTOLIN HFA) 90 mcg/actuation inhaler Inhale 2 Puffs as instructed every 6 hours as needed. atenolol (TENORMIN) 25 mg tablet Take 0.5 tablets by mouth once daily as needed. For HR > 100 gabapentin (NEURONTIN) 300 mg capsule Take 1 capsule by mouth three times a day for 30 days. gabapentin (NEURONTIN) 300 mg capsule Take 1 capsule by mouth daily at bedtime for 30 days. predniSONE (DELTASONE) 10 mg tablet Dispense 25 tablets of Prednisone 10 mg for a 13 day course of therapy. Please take as directed: 1 tablet every 8 hours for the first 4 days, followed by 1 tablet every 12 hours for the next 4 days, followed by 1 tablet daily for the final 5 days. (Patient not taking: Reported on 12/11/2024) No current facility-administered medications for this visit. ALLERGIES No Known Allergies Objective: Patient presents weightbearing as tolerated to right leg in regular shoegear Problem focus examination to the right lower extremity: Incision site is well healed. Absent motion at the right ankle joint secondary to arthrodesis. Arthrodesis is stable. Adequate rom through the midfoot. No pain to palpation of right ankle operative site. Patient has no pain to palpation of calf. The calf is soft, supple and nontender without evidence of DVT. Negative Charli's test. Satisfactory alignment is noted. Pedal pulses are palpable. Capillary refill time is less than three seconds to all digits. Sensations are intact to light touch. Radiographs:3 views AP, MO, Lat right ankle were taken and evaluated 11/06/2024 Radiographic evaluation: Hardware intact without breakage or loosening. Triplane position is maintained. No acute destructive changes. No soft tissue gas. No complications seen. Last CT Ankle - Impression Only CT ANKLE WO IVCON RIGHT Exam End: 11/27/2024 9:02 AM (Final result) Impression: IMPRESSION: 1. Robust osseous fusion across the tibiotalar joint as detailed. 2. No acute osseous abnormality. ... Assessment: Satisfactory post-operative progress, bony union on CT scan Plan: The patient was educated on clinical examination findings, postoperative prognosis and protocol. All questions were answered to patient's apparent satisfaction. -CT scan results reviewed with patient. -Patient can be weightbearing as tolerated in a lace up ankle brace and regular shoes for work. -Able to return to full duty at work. Note dispensed -RTC 3 months Lauren Irizarry DPM PGY3 Total patient care time w/ pt was at least 45 minutes w/ at least 50% of the time spent reviewing the results of the recent imaging including (CT) counseling the pt on treatment options and coordinating their care. I personally saw and evaluated the patient. I reviewed the resident's note. I agree with the resident's assessment and plan unless otherwise noted. Amarjit Storey DPM, [facility] 12-11-2024 History of Present illness Narrative DOS: 08/16/2024 POD: 4 months Procedure: Ankle Arthrodesis, Right Distal Tibiofibular Joint Arthrodesis, Right This 34 year old female presents for a post op visit. Patient states they are doing well. Pain is well controlled. She states she has been pain-free and not utilizing any medications. Has been weightbearing as tolerated to the right lower extremity in regular shoegear. Obtained CT scan since last visit. Presents today to review results. Would like to return to full duty at work. Denies any current nausea, vomiting, fever, chills, shortness of breath, chest pain or calf pain. Denies any other pedal complaints PAST MEDICAL HISTORY Diagnosis Date Acute right ankle pain Allergies Asthma (HCC) as a kid Delayed emergence from general anesthesia Generalized anxiety disorder Hammer toe Migraines Palpitations Plantar fasciitis PONV (postoperative nausea and vomiting) Current Outpatient Medications Medication Sig naltrexone-bupropion (CONTRAVE) 8-90 mg ER tablet Take 1 tablet by mouth once daily. amitriptyline (ELAVIL) 10 mg tablet Take 1 tablet by mouth daily at bedtime. SUMAtriptan (IMITREX) 25 mg tablet Take 1 tablet (25 mg) by mouth as needed for migraine headache (see administration instructions) (at onset of headache. May repeat after 2 hours.). May repeat dose after 2 hours if needed. Maximum daily dose is 200 mg per day. omeprazole (PRILOSEC) 40 mg capsule Take 1 capsule by mouth once daily. albuterol HFA (PROVENTIL HFA, VENTOLIN HFA) 90 mcg/actuation inhaler Inhale 2 Puffs as instructed every 6 hours as needed. atenolol (TENORMIN) 25 mg tablet Take 0.5 tablets by mouth once daily as needed. For HR > 100 gabapentin (NEURONTIN) 300 mg capsule Take 1 capsule by mouth three times a day for 30 days. gabapentin (NEURONTIN) 300 mg capsule Take 1 capsule by mouth daily at bedtime for 30 days. predniSONE (DELTASONE) 10 mg tablet Dispense 25 tablets of Prednisone 10 mg for a 13 day course of therapy. Please take as directed: 1 tablet every 8 hours for the first 4 days, followed by 1 tablet every 12 hours for the next 4 days, followed by 1 tablet daily for the final 5 days. (Patient not taking: Reported on 12/11/2024) No current facility-administered medications for this visit. ALLERGIES No Known Allergies Objective: Patient presents weightbearing as tolerated to right leg in regular shoegear Problem focus examination to the right lower extremity: Incision site is well healed. Absent motion at the right ankle joint secondary to arthrodesis. Arthrodesis is stable. Adequate rom through the midfoot. No pain to palpation of right ankle operative site. Patient has no pain to palpation of calf. The calf is soft, supple and nontender without evidence of DVT. Negative Charli's test. Satisfactory alignment is noted. Pedal pulses are palpable. Capillary refill time is less than three seconds to all digits. Sensations are intact to light touch. Radiographs:3 views AP, MO, Lat right ankle were taken and evaluated 11/06/2024 Radiographic evaluation: Hardware intact without breakage or loosening. Triplane position is maintained. No acute destructive changes. No soft tissue gas. No complications seen. Last CT Ankle - Impression Only CT ANKLE WO IVCON RIGHT Exam End: 11/27/2024 9:02 AM (Final result) Impression: IMPRESSION: 1. Robust osseous fusion across the tibiotalar joint as detailed. 2. No acute osseous abnormality. ... Assessment: Satisfactory post-operative progress, bony union on CT scan Plan: The patient was educated on clinical examination findings, postoperative prognosis and protocol. All questions were answered to patient's apparent satisfaction. -CT scan results reviewed with patient. -Patient can be weightbearing as tolerated in a lace up ankle brace and regular shoes for work. -Able to return to full duty at work. Note dispensed -RTC 3 months Lauren Irizarry DPM PGY3 Total patient care time w/ pt was at least 45 minutes w/ at least 50% of the time spent reviewing the results of the recent imaging including (CT) counseling the pt on treatment options and coordinating their care. I personally saw and evaluated the patient. I reviewed the resident's note. I agree with the resident's assessment and plan unless otherwise noted. Amarjit Storey DPM, FACFAS REVIEW OF SYSTEMS: GENERAL: Well developed, well nourished. No acute distress PAIN: Negative for pain, history of chronic pain or current treatment for chronic pain conditions CARDIOVASCULAR: Negative for chest pain, leg swelling and palpations. MSK: Negative for joint swelling SKIN: Negative for lesions, rash, itching, metal sensitivity NEURO: Negative for seizure, trauma, numbness/tingling of extremities. ENDOCRINE: Negative for diabetic associated symptoms HEMATOLOGY: Negative for excessive bleeding, clots, bleeding disorders. Mary Dean MA documented in this encounter [facility] 12-11-2024 Note HNO ID: [id number] Author: MARY DEAN MA Service: ? Author Type: Professional Benefits Sales Consultant Type: Progress Notes Filed: 01/01/2025 13:24 Note Text: REVIEW OF SYSTEMS: GENERAL: Well developed, well nourished. No acute distress PAIN: Negative for pain, history of chronic pain or current treatment for chronic pain conditions CARDIOVASCULAR: Negative for chest pain, leg swelling and palpations. MSK: Negative for joint swelling SKIN: Negative for lesions, rash, itching, metal sensitivity NEURO: Negative for seizure, trauma, numbness/tingling of extremities. ENDOCRINE: Negative for diabetic associated symptoms HEMATOLOGY: Negative for excessive bleeding, clots, bleeding disorders. Mary Dean MA [facility] 11-27-2024 History of Present illness Narrative Radiology Service Progress Note PATIENT NAME: Gayle Thompson DATE OF SERVICE: November 27, 2024 TIME: 9:00 AM PATIENT IDENTITY VERIFICATION COMPLETED USING TWO (2) IDENTIFIERS: Name and Date of confirmed by patient verbally. FALL SCREENING: Has the patient had 2 falls in the last year or 1 fall with injury or currently using an Ambulatory Assistive Device (Walker, Cane, Wheelchair, Crutches, etc.)? No PATIENT GENDER DATA: Assigned female at . status: : No status: NO. PATIENT RELEVANT IMPLANT DATA REVIEWED: Yes PATIENT PRESENTS WITH AN IMPLANTABLE OR ATTACHED DOMINATRIX: No RADIOLOGY DEPARTMENT: CT; Exam(s) Completed: Lower extremity PERIPHERAL IV DATA: Not applicable SIGNED BY: TESFAYE Mosley) / Miguel Gross November 27, 2024 9:00 AM documented in this encounter [facility] 11-27-2024 Note HNO ID: [id number] Author: KALPANA HOUSER RT(R) Service: Radiology Author Type: Button Tufting Machine Operator Type: Progress Notes Filed: 11/27/2024 09:01 Note Text: Radiology Service Progress Note PATIENT NAME: Gayle Thompson DATE OF SERVICE: November 27, 2024 TIME: 9:00 AM PATIENT IDENTITY VERIFICATION COMPLETED USING TWO (2) IDENTIFIERS: Name and Date of confirmed by patient verbally. FALL SCREENING: Has the patient had 2 falls in the last year or 1 fall with injury or currently using an Ambulatory Assistive Device (Walker, Cane, Wheelchair, Crutches, etc.)? No PATIENT GENDER DATA: Assigned female at . status: : No status: NO. PATIENT RELEVANT IMPLANT DATA REVIEWED: Yes PATIENT PRESENTS WITH AN IMPLANTABLE OR ATTACHED DOMINATRIX: No RADIOLOGY DEPARTMENT: CT; Exam(s) Completed: Lower extremity PERIPHERAL IV DATA: Not applicable SIGNED BY: RT Melany(R) / Miguel Gross November 27, 2024 9:00 AM [facility] 11-07-2024 Instructions Noelle Blanc APRN.[facility] - 11/07/2024 11:57 AM EDT CHOOSING PROTEIN Basic protein needs each day. (1 gm/kg) If competing in sports you can increase this: 100 grams of protein each day (1.2-1.7 grams/kg) Protein foods include both animal (meat, poultry, seafood, and eggs) and plant (beans, peas, soy products, nuts, and seeds) sources. We all need protein to build lean muscle mass -- and there is some evidence that eating protein several times a day will make amino acids available during your workout. Vary your protein food choices: Eat a variety of foods from the protein group each week. [place] with main dishes made with beans or peas, nuts, soy and seafood. Eat seafood in place of meat or poultry twice a week. Include some fish that are higher in oils and low in mercury, such as salmon, trout and conte. Milk (8 grams), yogurt (12 grams) and Kisw[place]ili yogurt (18 grams) contain protein. Choose lean or low-fat cuts of meat like round or sirloin and ground beef that is at least 90% lean. Trim or drain fat from meat and remove poultry skin. 3 ounces of meat, fish, poultry (about the size of a deck of cards) contains about 24 grams of protein. Have an egg: One egg a day, on average doesn't increase risk for heart disease, so make eggs a part of your weekly choices. One medium egg contains 6 grams of protein. Only the egg yolk contains cholesterol and satruated fat, so have as many egg whites as you want. Eating a healthy breakfast, especially one high in protein, increases satiety and reduces hunger throughout the day. Try a hard-boiled egg, peanut butter on whole grain toast, or add some nuts to your oatmeal or cereal. (2 tbsp of peanut butter is about 8 grams of protein) Eat plant protein foods more often. Try beans and peas (kidney, navy, black, shelton, or white beans; splt peas; chickpeas; hummus), soy products (tofu, tempeh, veggie burgers), nuts and seeds. They are naturally low in saturated fat and high in fiber. (1/2 cup of beans is about 8 grams of protein) Choose unsalted nuts and seeds as a snack, on salads or in main dished to replace meat or poultry. Small portions of nuts will do - they are a concentrated source of calories. 1/2 cup nuts/seeds is about 15 grams of protein. Try grilling, broiling, roasting, or baking -- they don't add extra fat. Avoid breading meat, poultry or fish as this adds calories. Make a healthy sandwich: Choose turkey, roast beef, canned tuna or salmon, or peanut butter for sandwiches. Many deli meats, such as regular bologna or salami, are high in fat and sodium Make these occasional treats only. [place] Instant Breakfast, mixed with milk, contains 13 grams of protein a serving. documented in this encounter [facility] 11-07-2024 Note HNO ID: [id number] Author: NOELLE BLANC APRN.CNP Service: ? Author Type: Nurse Practitioner Type: Progress Notes Filed: 11/07/2024 17:52 Note Text: CHIEF COMPLAINT: Yanira is a 34-year-old female with a history of palpitations, PSVT, metabolic syndrome, and obesity, presenting for weight loss management. I reviewed past medical, surgical, social, and family histories today and updated chart. Allergies, chronic medications, and supplements were also reviewed. The patient consented to the use of ambient AI software for draft documentation of the visit consistent with [facility]?s Notice of Privacy Practices. Obesity: - BMI: 36.34. - Seen by obesity medicine in May; prescribed Trulicity. - No weight loss on Trulicity; weight increased from 238 lbs in May to 239 lbs today. - Discontinued Trulicity in August due to difficulty with self-injections and ineffectiveness - Reports decreased appetite while on Trulicity. - Interested in exploring alternative weight loss medications. - Limited physical activity due to recent ankle fusion surgery in July. - Currently walking on a treadmill; participated in a 5K with children. - Eager to resume running post-CT scan of right ankle next month. - Engages in light weightlifting; has access to a gym at the station. - Diet includes high protein intake, 110+ oz of water daily, and minimal consumption of soda and coffee. - Occasionally consumes zero-sugar energy drinks and smoothies with protein. - Family history of weight issues and hormonal disorders, including PCOS in sister. - Mother recently diagnosed with Graves' disease; Yanira inquires about genetic testing. - Recent TSH levels within normal range; no history of endocrinology consultations. PAST MEDICAL HISTORY Diagnosis Date Acute right ankle pain Allergies Asthma as a kid Delayed emergence from general anesthesia Generalized anxiety disorder Hammer toe Migraines Palpitations Plantar fasciitis PONV (postoperative nausea and vomiting) PAST SURGICAL HISTORY Procedure Laterality Date ANKLE SURGERY HX Right 07/27/2021 APPLICATION UNIPLANE EXTERNAL FIXATION SYSTEM Right 07/18/2021 CLTX FX W8 BRG ARTCLR PRTN DSTL TIB W/SKEL TRACJ Right 07/18/2021 CORRECTION HAMMERTOE Right 2010, 2013 2018 EXTRACTION ERUPTED TOOTH 2016 wisdom teeth PAST SURGICAL HISTORY OF Right 10/23/2023 1. Removal internal fixation, right tibia PROCEDURE Bilateral 2010 pins in big toes PT ED OBSTETRICS AND GYNECOLOGY 08/2023 ENDOMETRIAL ABLATION SALPINGECTOMY COMPLETE/PARTIAL UNI/BI SPX 2020 Social History Tobacco Use Smoking status: Never Smokeless tobacco: Never Vaping Use Vaping status: Never Used Substance Use Topics Alcohol use: Yes Comment: occ.< once monthly Drug use: Never ALLERGIES No Known Allergies Family History Problem Relation Age of Onset other (Circulation problems) Mother other (High Blood Pressure) Mother other (fibromyalgia) Mother Hypertension Mother Cancer Mother cervical cancer Allergies Mother Bee venom, seasonal Depression Mother Anxiety disorder Mother Migraines Mother Thyroid Mother ADD/ADHD Father Migraines Sister Anxiety disorder Sister Depression Sister Asthma Sister Obesity Sister Thyroid Sister other (Gallbladder) Sister Asthma Brother Alzheimer's Disease Brother Diabetes Brother Cancer Maternal Grandmother Arthritis Maternal Grandmother COPD Maternal Grandmother other (ibs) Maternal Grandfather Obesity Paternal Grandmother other (colitis) Paternal Grandmother other (GERD) Daughter ADD/ADHD Son Allergies Son several other (gerd) Son Colon Cancer Other Current Outpatient Medications Medication Sig Dispense Refill gabapentin (NEURONTIN) 300 mg capsule Take 1 capsule by mouth three times a day for 30 days. 30 capsule 0 amitriptyline (ELAVIL) 10 mg tablet Take 1 tablet by mouth daily at bedtime. 90 tablet 0 SUMAtriptan (IMITREX) 25 mg tablet Take 1 tablet (25 mg) by mouth as needed for migraine headache (see administration instructions) (at onset of headache. May repeat after 2 hours.). May repeat dose after 2 hours if needed. Maximum daily dose is 200 mg per day. 12 tablet 1 omeprazole (PRILOSEC) 40 mg capsule Take 1 capsule by mouth once daily. 90 capsule 1 albuterol HFA (PROVENTIL HFA, VENTOLIN HFA) 90 mcg/actuation inhaler Inhale 2 Puffs as instructed every 6 hours as needed. 1 Each 0 atenolol (TENORMIN) 25 mg tablet Take 0.5 tablets by mouth once daily as needed. For HR > 100 30 tablet 0 gabapentin (NEURONTIN) 300 mg capsule Take 1 capsule by mouth daily at bedtime for 30 days. 30 capsule 0 dulaglutide (TRULICITY) 3 mg/0.5 mL pen injector Inject 3 mg subcutaneously one time a week for 28 days. 2 mL 0 predniSONE (DELTASONE) 10 mg tablet Dispense 25 tablets of Prednisone 10 mg for a 13 day course of therapy. Please take as directed: 1 tablet ever (more content not included)... [facility] 11-07-2024 History of Present illness Narrative CHIEF COMPLAINT: Yanira is a 34-year-old female with a history of palpitations, PSVT, metabolic syndrome, and obesity, presenting for weight loss management. I reviewed past medical, surgical, social, and family histories today and updated chart. Allergies, chronic medications, and supplements were also reviewed. The patient consented to the use of [employer] software for draft documentation of the visit consistent with [facility] s Notice of Privacy Practices. Obesity: - BMI: 36.34. - Seen by obesity medicine in May; prescribed Trulicity. - No weight loss on Trulicity; weight increased from 238 lbs in May to 239 lbs today. - Discontinued Trulicity in August due to difficulty with self-injections and ineffectiveness - Reports decreased appetite while on Trulicity. - Interested in exploring alternative weight loss medications. - Limited physical activity due to recent ankle fusion surgery in July. - Currently walking on a treadmill; participated in a 5K with children. - Eager to resume running post-CT scan of right ankle next month. - Engages in light weightlifting; [place] access to a gym at the station. - Diet includes high protein intake, 110+ oz of water daily, and minimal consumption of soda and coffee. - Occasionally consumes zero-sugar energy drinks and smoothies with protein. - Family history of weight issues and hormonal disorders, including PCOS in sister. - Mother recently diagnosed with Graves' disease; Yanira inquires about genetic testing. - Recent TSH levels within normal range; no history of endocrinology consultations. PAST MEDICAL HISTORY Diagnosis Date Acute right ankle pain Allergies Asthma as a kid Delayed emergence from general anesthesia Generalized anxiety disorder Hammer toe Migraines Palpitations Plantar fasciitis PONV (postoperative nausea and vomiting) PAST SURGICAL HISTORY Procedure Laterality Date ANKLE SURGERY HX Right 07/27/2021 APPLICATION UNIPLANE EXTERNAL FIXATION SYSTEM Right 07/18/2021 CLTX FX W8 BRG ARTCLR PRTN DSTL TIB W/SKEL TRACJ Right 07/18/2021 CORRECTION HAMMERTOE Right 2010, 2013 2017 EXTRACTION ERUPTED TOOTH 2016 wisdom teeth PAST SURGICAL HISTORY OF Right 10/23/2023 1. Removal internal fixation, right tibia PROCEDURE Bilateral 2010 pins in big toes PT ED OBSTETRICS & GYNECOLOGY 08/2023 ENDOMETRIAL ABLATION SALPINGECTOMY COMPLETE/PARTIAL UNI/BI SPX 2020 Social History Tobacco Use Smoking status: Never Smokeless tobacco: Never Vaping Use Vaping status: Never Used Substance Use Topics Alcohol use: Yes Comment: occ.< once monthly Drug use: Never ALLERGIES No Known Allergies Family History Problem Relation Age of Onset other (Circulation problems) Mother other (High Blood Pressure) Mother other (fibromyalgia) Mother Hypertension Mother Cancer Mother cervical cancer Allergies Mother Bee venom, seasonal Depression Mother Anxiety disorder Mother Migraines Mother Thyroid Mother ADD/ADHD Father Migraines Sister Anxiety disorder Sister Depression Sister Asthma Sister Obesity Sister Thyroid Sister other (Gallbladder) Sister Asthma Brother Alzheimer's Disease Brother Diabetes Brother Cancer Maternal Grandmother Arthritis Maternal Grandmother COPD Maternal Grandmother other (ibs) Maternal Grandfather Obesity Paternal Grandmother other (colitis) Paternal Grandmother other (GERD) Daughter ADD/ADHD Son Allergies Son several other (gerd) Son Colon Cancer Other Current Outpatient Medications Medication Sig Dispense Refill gabapentin (NEURONTIN) 300 mg capsule Take 1 capsule by mouth three times a day for 30 days. 30 capsule 0 amitriptyline (ELAVIL) 10 mg tablet Take 1 tablet by mouth daily at bedtime. 90 tablet 0 SUMAtriptan (IMITREX) 25 mg tablet Take 1 tablet (25 mg) by mouth as needed for migraine headache (see administration instructions) (at onset of headache. May repeat after 2 hours.). May repeat dose after 2 hours if needed. Maximum daily dose is 200 mg per day. 12 tablet 1 omeprazole (PRILOSEC) 40 mg capsule Take 1 capsule by mouth once daily. 90 capsule 1 albuterol HFA (PROVENTIL HFA, VENTOLIN HFA) 90 mcg/actuation inhaler Inhale 2 Puffs as instructed every 6 hours as needed. 1 Each 0 atenolol (TENORMIN) 25 mg tablet Take 0.5 tablets by mouth once daily as needed. For HR > 100 30 tablet 0 gabapentin (NEURONTIN) 300 mg capsule Take 1 capsule by mouth daily at bedtime for 30 days. 30 capsule 0 dulaglutide (TRULICITY) 3 mg/0.5 mL pen injector Inject 3 mg subcutaneously one time a week for 28 days. 2 mL 0 predniSONE (DELTASONE) 10 mg tablet Dispense 25 tablets of Prednisone 10 mg for a 13 day course of therapy. Please take as directed: 1 tablet every 8 hours for the first 4 days, followed by 1 tablet every 12 hours for the next 4 days, followed by 1 tablet daily for the final 5 days. 25 tablet 0 No current facility-administered medications for this visit. Review of Systems Constitutional: Positive for unexpected weight change. Negative for appetite change, chills, diaphoresis, fatigue and fever. Respiratory: Negative. Cardiovascular: Positive for palpitations (stable). Gastrointestinal: Negative. Genitourinary: Negative. Skin: Negative. Neurological: Negative. Hematological: Negative. Psychiatric/Behavioral: Negative. BP 118/64 Pulse 64 Temp (Src) 97.8 (Oral) Resp 19 Ht 5' 8 (1.73m) Wt 239 lb (108.4kg) SpO2 98% BMI 36.35 kg/(m^2). Physical Exam Vitals and nursing note reviewed. Constitutional: Appearance: Normal appearance. She is obese. HENT: Mouth/Throat: Mouth: Mucous membranes are moist. Eyes: Pupils: Pupils are equal, round, and reactive to light. Cardiovascular: Rate and Rhythm: Normal rate and regular rhythm. Heart sounds: Normal heart sounds. Pulmonary: Breath sounds: Normal breath sounds. Musculoskeletal: Comments: Right leg in walking boot Skin: General: Skin is warm and dry. Neurological: General: No focal deficit present. Mental Status: She is oriented to person, place, and time. Psychiatric: Mood and Affect: Mood normal. Behavior: Behavior normal. Cognition and Memory: Cognition normal. No visits with results within 1 Day(s) from this visit. Latest known visit with results is: Admission on 08/17/2024, Discharged on 08/19/2024 Component Date Value Ref Range Status Glucose 08/18/2024 105 (H) 74 - 99 mg/dL Final The [place] [employer] (ADA) provides guidance for cutoff values for fasting glucose and random glucose. The ADA defines fasting as no caloric intake for at least 8 hours. Fasting plasma glucose results between 100 to 125 mg/dL indicate increased risk for diabetes (prediabetes). Fasting plasma glucose results greater than or equal to 126 mg/dL meet the criteria for diagnosis of diabetes. In the absence of unequivocal hyperglycemia, results should be confirmed by repeat testing. In a patient with classic symptoms of hyperglycemia or hyperglycemic crisis, random plasma glucose results greater than or equal to 200 mg/dL meet the criteria for diagnosis of diabetes. Reference: Standards of Medical Care in Diabetes 2016, [place] [employer]. Diabetes Care. 2016.39(Suppl 1). BUN 08/18/2024 16 7 - 21 mg/dL Final Creatinine 08/18/2024 1.00 (H) 0.58 - 0.96 mg/dL Final Sodium 08/18/2024 139 136 - 144 mmol/L Final Potassium 08/18/2024 4.2 3.7 - 5.1 mmol/L Final Chloride 08/18/2024 106 98 - 107 mmol/L Final CO2 08/18/2024 24 22 - 30 mmol/L Final Anion Gap 08/18/2024 9 8 - 15 mmol/L Final Calcium, Total 08/18/2024 8.1 (L) 8.5 - 10.2 mg/dL Final Estimated Glomerular Filtration Ra* 08/18/2024 77 >=60 mL/min/1.73m Final Estimated Glomerular Filtration Rate (eGFR) is calculated using the 2020 CKD-EPI creatinine equation. This equation utilizes serum creatinine, sex, and age as parameters. The creatinine assay has traceable calibration to isotope dilution-mass spectrometry. Refer to KDIGO guidelines for clinical interpretation. In patients with unstable renal function, e.g. those with acute kidney injury, the eGFR may not accurately reflect actual GFR. Glucose 08/19/2024 115 (H) 74 - 99 mg/dL Final The [place] [employer] (ADA) provides guidance for cutoff values for fasting glucose and random glucose. The ADA defines fasting as no caloric intake for at least 8 hours. Fasting plasma glucose results between 100 to 125 mg/dL indicate increased risk for diabetes (prediabetes). Fasting plasma glucose results greater than or equal to 126 mg/dL meet the criteria for diagnosis of diabetes. In the absence of unequivocal hyperglycemia, results should be confirmed by repeat testing. In a patient with classic symptoms of hyperglycemia or hyperglycemic crisis, random plasma glucose results greater than or equal to 200 mg/dL meet the criteria for diagnosis of diabetes. Reference: Standards of Medical Care in Diabetes 2016, [place] [employer]. Diabetes Care. 2016.39(Suppl 1). BUN 08/19/2024 15 7 - 21 mg/dL Final Creatinine 08/19/2024 0.82 0.58 - 0.96 mg/dL Final Sodium 08/19/2024 134 (L) 136 - 144 mmol/L Final Potassium 08/19/2024 3.8 3.7 - 5.1 mmol/L Final Chloride 08/19/2024 102 98 - 107 mmol/L Final CO2 08/19/2024 22 22 - 30 mmol/L Final Anion Gap 08/19/2024 10 8 - 15 mmol/L Final Calcium, Total 08/19/2024 8.4 (L) 8.5 - 10.2 mg/dL Final Estimated Glomerular Filtration Ra* 08/19/2024 98 >=60 mL/min/1.73m Final Estimated Glomerular Filtration Rate (eGFR) is calculated using the 2020 CKD-EPI creatinine equation. This equation utilizes serum creatinine, sex, and age as parameters. The creatinine assay has traceable calibration to isotope dilution-mass spectrometry. Refer to KDIGO guidelines for clinical interpretation. In patients with unstable renal function, e.g. those with acute kidney injury, the eGFR may not accurately reflect actual GFR. WBC 08/18/2024 9.33 3.70 - 11.00 k/uL Final RBC 08/18/2024 4.12 3.90 - 5.20 m/uL Final Hemoglobin 08/18/2024 12.8 11.5 - 15.5 g/dL Final Hematocrit 08/18/2024 38.7 36.0 - 46.0 % Final MCV 08/18/2024 93.9 80.0 - 100.0 fL Final MCH 08/18/2024 31.1 26.0 - 34.0 pg Final MCHC 08/18/2024 33.1 30.5 - 36.0 g/dL Final RDW-CV 08/18/2024 13.1 11.5 - 15.0 % Final Platelet Count 08/18/2024 142 (L) 150 - 400 k/uL Final MPV 08/18/2024 10.7 9.0 - 12.7 fL Final Absolute nRBC 08/18/2024 <0.01 <0.01 k/uL Final WBC 08/19/2024 8.17 3.70 - 11.00 k/uL Final RBC 08/19/2024 4.18 3.90 - 5.20 m/uL Final Hemoglobin 08/19/2024 12.8 11.5 - 15.5 g/dL Final Hematocrit 08/19/2024 38.9 36.0 - 46.0 % Final MCV 08/19/2024 93.1 80.0 - 100.0 fL Final MCH 08/19/2024 30.6 26.0 - 34.0 pg Final MCHC 08/19/2024 32.9 30.5 - 36.0 g/dL Final RDW-CV 08/19/2024 12.6 11.5 - 15.0 % Final Platelet Count 08/19/2024 150 150 - 400 k/uL Final MPV 08/19/2024 10.6 9.0 - 12.7 fL Final Absolute nRBC 08/19/2024 <0.01 <0.01 k/uL Final ASSESSMENT/PLAN: 1. Class 2 obesity without serious comorbidity with body mass index (BMI) of 36.0 to 36.9 in adult, unspecified obesity type (E66.812) 2. Unable to lose weight (R63.8) - BMI is 36.34. No significant weight loss observed with Trulicity; weight increased from 238 lbs in May to 239 lbs currently. - Discontinued Trulicity in August due to difficulty with self-administration of injections and ineffectiveness. - Discussed alternative pharmacological options including Contrave, metformin, and Wellbutrin. Insurance may not cover brand Contrave and each medication does not come in the dose that is in it. Will try to send in brand name first. There is also a coupon product on website. - Advised to continue current dietary habits focusing on high protein intake and adequate hydration. - Encouraged to gradually increase physical activity as tolerated, considering recent ankle fusion surgery. - Ordered thyroid peroxidase antibody test to rule out Adrian's thyroiditis. - Follow-up in 4-6 weeks to assess response to medication and monitor weight. 3. PSVT (paroxysmal supraventricular tachycardia) (HCC) (I47.10) 4. Metabolic syndrome (E88.810) - Discussed potential benefit of metformin for weight management. New medication(s) prescribed today: Yes: Contrave. Discussed new medication dosage, usage, goals of therapy, and side effects. Patient has been apprised of any potential drug interactions to be aware of. Patient expresses understanding. Counseling completed in adopting health behaviors such as avoiding excessive alcohol use, avoid tobacco use, improve nutrition, and engage in physical activities. Copy of written care plan, clinical summary, treatment plan, new medications, goals, and self management requirements were given to patient. Noelle Blanc APRN.RIN documented in this encounter [facility] 11-06-2024 Instructions Evan Johnson MD - 11/06/2024 11:29 AM EDT Follow-up after CT scan and 4 weeks. Can be weightbearing as tolerated in boot for an additional 2 weeks. Can come out of boot and transition to lace up ankle brace and regular shoes in 2 weeks. documented in this encounter [facility] 11-06-2024 History of Present illness Narrative DOS: 08/16/2024 POD: 82 days Procedure: Ankle Arthrodesis, Right Distal Tibiofibular Joint Arthrodesis, Right This 34 year old female presents for a post op visit. Patient states they are doing well. Pain is well controlled. She states she has been pain-free and not utilizing any medications. Has been weightbearing as tolerated to the right lower extremity in CAM boot. Denies any current nausea, vomiting, fever, chills, shortness of breath, chest pain or calf pain. Denies any other pedal complaints PAST MEDICAL HISTORY Diagnosis Date Acute right ankle pain Allergies Asthma as a kid Delayed emergence from general anesthesia Generalized anxiety disorder Hammer toe Migraines Palpitations Plantar fasciitis PONV (postoperative nausea and vomiting) Current Outpatient Medications Medication Sig gabapentin (NEURONTIN) 300 mg capsule Take 1 capsule by mouth three times a day for 30 days. gabapentin (NEURONTIN) 300 mg capsule Take 1 capsule by mouth daily at bedtime for 30 days. amitriptyline (ELAVIL) 10 mg tablet Take 1 tablet by mouth daily at bedtime. SUMAtriptan (IMITREX) 25 mg tablet Take 1 tablet (25 mg) by mouth as needed for migraine headache (see administration instructions) (at onset of headache. May repeat after 2 hours.). May repeat dose after 2 hours if needed. Maximum daily dose is 200 mg per day. dulaglutide (TRULICITY) 3 mg/0.5 mL pen injector Inject 3 mg subcutaneously one time a week for 28 days. (Patient not taking: Reported on 10/09/2024) predniSONE (DELTASONE) 10 mg tablet Dispense 25 tablets of Prednisone 10 mg for a 13 day course of therapy. Please take as directed: 1 tablet every 8 hours for the first 4 days, followed by 1 tablet every 12 hours for the next 4 days, followed by 1 tablet daily for the final 5 days. omeprazole (PRILOSEC) 40 mg capsule Take 1 capsule by mouth once daily. albuterol HFA (PROVENTIL HFA, VENTOLIN HFA) 90 mcg/actuation inhaler Inhale 2 Puffs as instructed every 6 hours as needed. atenolol (TENORMIN) 25 mg tablet Take 0.5 tablets by mouth once daily as needed. For HR > 100 No current facility-administered medications for this visit. ALLERGIES No Known Allergies Objective: Patient presents weightbearing as tolerated to right leg in CAM boot. Problem focus examination to the right lower extremity: Incision site is well coapted without evidence of dehiscence. Mild erythema and edema surrounding surgical site. No drainage. No lymphadenopathy. No lymphangitis. No surrounding cellulitis. No signs of infection. Patient has no pain to palpation of calf. The calf is soft, supple and nontender without evidence of DVT. Negative Charli's test. Satisfactory alignment is noted. Pedal pulses are palpable. Capillary refill time is less than three seconds to all digits. Sensations are intact to light touch. Radiographs:3 views AP, MO, Lat right ankle were taken and evaluated 11/06/2024 Radiographic evaluation: Hardware intact without breakage or loosening. Triplane position is maintained. No acute destructive changes. No soft tissue gas. No complications seen. Assessment: Satisfactory post-operative progress Plan: The patient was educated on clinical examination findings, postoperative prognosis and protocol. All questions were answered to patient's apparent satisfaction. - Xray's reviewed with patient. - Patient to continue weightbearing as tolerated to the operative extremity in CAM boot for the next 2 weeks. -Patient can be weightbearing as tolerated in a lace up ankle brace and regular shoes starting in 2 weeks -Patient to follow-up in 4 to [address] scan of her ankle to evaluate union. Follow up in 5 weeks. Evan Johnson MD I personally saw and evaluated the patient. I reviewed the resident's note. I agree with the resident's assessment and plan unless otherwise noted. Amarjit Storey DPM, FACFAS documented in this encounter [facility] 11-06-2024 Note HNO ID: [id number] Author: AMARJIT STOREY DPM Service: ? Author Type: Physician Type: Progress Notes Filed: 11/29/2024 12:43 Note Text: DOS: 08/16/2024 POD: 82 days Procedure: Ankle Arthrodesis, Right Distal Tibiofibular Joint Arthrodesis, Right This 34 year old female presents for a post op visit. Patient states they are doing well. Pain is well controlled. She states she has been pain-free and not utilizing any medications. Has been weightbearing as tolerated to the right lower extremity in CAM boot. Denies any current nausea, vomiting, fever, chills, shortness of breath, chest pain or calf pain. Denies any other pedal complaints PAST MEDICAL HISTORY Diagnosis Date Acute right ankle pain Allergies Asthma as a kid Delayed emergence from general anesthesia Generalized anxiety disorder Hammer toe Migraines Palpitations Plantar fasciitis PONV (postoperative nausea and vomiting) Current Outpatient Medications Medication Sig gabapentin (NEURONTIN) 300 mg capsule Take 1 capsule by mouth three times a day for 30 days. gabapentin (NEURONTIN) 300 mg capsule Take 1 capsule by mouth daily at bedtime for 30 days. amitriptyline (ELAVIL) 10 mg tablet Take 1 tablet by mouth daily at bedtime. SUMAtriptan (IMITREX) 25 mg tablet Take 1 tablet (25 mg) by mouth as needed for migraine headache (see administration instructions) (at onset of headache. May repeat after 2 hours.). May repeat dose after 2 hours if needed. Maximum daily dose is 200 mg per day. dulaglutide (TRULICITY) 3 mg/0.5 mL pen injector Inject 3 mg subcutaneously one time a week for 28 days. (Patient not taking: Reported on 10/09/2024) predniSONE (DELTASONE) 10 mg tablet Dispense 25 tablets of Prednisone 10 mg for a 13 day course of therapy. Please take as directed: 1 tablet every 8 hours for the first 4 days, followed by 1 tablet every 12 hours for the next 4 days, followed by 1 tablet daily for the final 5 days. omeprazole (PRILOSEC) 40 mg capsule Take 1 capsule by mouth once daily. albuterol HFA (PROVENTIL HFA, VENTOLIN HFA) 90 mcg/actuation inhaler Inhale 2 Puffs as instructed every 6 hours as needed. atenolol (TENORMIN) 25 mg tablet Take 0.5 tablets by mouth once daily as needed. For HR > 100 No current facility-administered medications for this visit. ALLERGIES No Known Allergies Objective: Patient presents weightbearing as tolerated to right leg in CAM boot. Problem focus examination to the right lower extremity: Incision site is well coapted without evidence of dehiscence. Mild erythema and edema surrounding surgical site. No drainage. No lymphadenopathy. No lymphangitis. No surrounding cellulitis. No signs of infection. Patient has no pain to palpation of calf. The calf is soft, supple and nontender without evidence of DVT. Negative Charli's test. Satisfactory alignment is noted. Pedal pulses are palpable. Capillary refill time is less than three seconds to all digits. Sensations are intact to light touch. Radiographs:3 views AP, MO, Lat right ankle were taken and evaluated 11/06/2024 Radiographic evaluation: Hardware intact without breakage or loosening. Triplane position is maintained. No acute destructive changes. No soft tissue gas. No complications seen. Assessment: Satisfactory post-operative progress Plan: The patient was educated on clinical examination findings, postoperative prognosis and protocol. All questions were answered to patient's apparent satisfaction. - Xray's reviewed with patient. - Patient to continue weightbearing as tolerated to the operative extremity in CAM boot for the next 2 weeks. -Patient can be weightbearing as tolerated in a lace up ankle brace and regular shoes starting in 2 weeks -Patient to follow-up in 4 to [address] scan of her ankle to evaluate union. Follow up in 5 weeks. Evan Johnson MD I personally saw and evaluated the patient. I reviewed the resident's note. I agree with the resident's assessment and plan unless otherwise noted. Amarjit Storey DPM, [facility] 10-09-2024 Note HNO ID: [id number] Author: AMARJIT STOREY DPM Service: ? Author Type: Physician Type: Progress Notes Filed: 10/09/2024 13:01 Note Text: DOS: 08/16/2024 POD: 54 days Procedure: Ankle Arthrodesis, Right Distal Tibiofibular Joint Arthrodesis, Right This 34 year old female presents for a post op visit. Patient states they are doing well. Pain is well controlled without medication. Admits to intermittent nerve pain. Rates pain 2/10. Admits to having intermittent aching, throbbing pain.Has been icing and elevating the extremity as instructed preoperatively and has been nonweightbearing to the right lower extremity in CAM boot. Denies any current nausea, vomiting, fever, chills, shortness of breath, chest pain or calf pain. Has been taking Aspirin for DVT prophylaxis. Denies any other pedal complaints PAST MEDICAL HISTORY Diagnosis Date Acute right ankle pain Allergies Asthma as a kid Delayed emergence from general anesthesia Generalized anxiety disorder Hammer toe Migraines Palpitations Plantar fasciitis PONV (postoperative nausea and vomiting) Current Outpatient Medications Medication Sig gabapentin (NEURONTIN) 300 mg capsule Take 1 capsule by mouth three times a day for 30 days. amitriptyline (ELAVIL) 10 mg tablet Take 1 tablet by mouth daily at bedtime. SUMAtriptan (IMITREX) 25 mg tablet Take 1 tablet (25 mg) by mouth as needed for migraine headache (see administration instructions) (at onset of headache. May repeat after 2 hours.). May repeat dose after 2 hours if needed. Maximum daily dose is 200 mg per day. predniSONE (DELTASONE) 10 mg tablet Dispense 25 tablets of Prednisone 10 mg for a 13 day course of therapy. Please take as directed: 1 tablet every 8 hours for the first 4 days, followed by 1 tablet every 12 hours for the next 4 days, followed by 1 tablet daily for the final 5 days. omeprazole (PRILOSEC) 40 mg capsule Take 1 capsule by mouth once daily. albuterol HFA (PROVENTIL HFA, VENTOLIN HFA) 90 mcg/actuation inhaler Inhale 2 Puffs as instructed every 6 hours as needed. atenolol (TENORMIN) 25 mg tablet Take 0.5 tablets by mouth once daily as needed. For HR > 100 gabapentin (NEURONTIN) 300 mg capsule Take 1 capsule by mouth daily at bedtime for 30 days. dulaglutide (TRULICITY) 3 mg/0.5 mL pen injector Inject 3 mg subcutaneously one time a week for 28 days. (Patient not taking: Reported on 10/09/2024) No current facility-administered medications for this visit. ALLERGIES No Known Allergies Objective: Patient presents nonweightbearing to right leg in CAM boot. Dressing is dry, clean, and intact with normal strike through noted. Problem focus examination to the right lower extremity: Incision site is well coapted without evidence of dehiscence. Mild erythema and edema surrounding surgical site. No drainage. No lymphadenopathy. No lymphangitis. No surrounding cellulitis. No signs of infection. Patient has no pain to palpation of calf. The calf is soft, supple and nontender without evidence of DVT. Negative Charli's test. Satisfactory alignment is noted. Pedal pulses are palpable. Capillary refill time is less than three seconds to all digits. Sensations are intact to light touch. Radiographs:3 views AP, MO, Lat right ankle were taken and evaluated 10/09/2024 Radiographic evaluation: Hardware intact without breakage or loosening. Triplane position is maintained. No acute destructive changes. No soft tissue gas. No complications seen. Assessment: Satisfactory post-operative progress Plan: The patient was educated on clinical examination findings, postoperative prognosis and protocol. All questions were answered to patient's apparent satisfaction. - Xray's reviewed with patient. - Continue ASA 81 mg every 12 hours. - Dicussed the need for long time for nerve pain to resolve and will decrease with time. - Partial WB in the house in the CAM boot - transition from partial weight bearing to full weight bearing in the house. Continue non-WB while out of the house for two weeks, after 2 weeks decrease amount of time using the scooter outside of the house and transition to partial weight bearing. - Hydrate incision site with Mositurizing cream Follow up 4 weeks Sophia Gutierrez DPM PGY-3 I personally saw and evaluated the patient. I reviewed the resident's note. I agree with the resident's assessment and plan unless otherwise noted. Amarjit Storey DPM, [facility] 10-09-2024 History of Present illness Narrative DOS: 08/16/2024 POD: 54 days Procedure: Ankle Arthrodesis, Right Distal Tibiofibular Joint Arthrodesis, Right This 34 year old female presents for a post op visit. Patient states they are doing well. Pain is well controlled without medication. Admits to intermittent nerve pain. Rates pain 2/10. Admits to having intermittent aching, throbbing pain.Has been icing and elevating the extremity as instructed preoperatively and has been nonweightbearing to the right lower extremity in CAM boot. Denies any current nausea, vomiting, fever, chills, shortness of breath, chest pain or calf pain. Has been taking Aspirin for DVT prophylaxis. Denies any other pedal complaints PAST MEDICAL HISTORY Diagnosis Date Acute right ankle pain Allergies Asthma as a kid Delayed emergence from general anesthesia Generalized anxiety disorder Hammer toe Migraines Palpitations Plantar fasciitis PONV (postoperative nausea and vomiting) Current Outpatient Medications Medication Sig gabapentin (NEURONTIN) 300 mg capsule Take 1 capsule by mouth three times a day for 30 days. amitriptyline (ELAVIL) 10 mg tablet Take 1 tablet by mouth daily at bedtime. SUMAtriptan (IMITREX) 25 mg tablet Take 1 tablet (25 mg) by mouth as needed for migraine headache (see administration instructions) (at onset of headache. May repeat after 2 hours.). May repeat dose after 2 hours if needed. Maximum daily dose is 200 mg per day. predniSONE (DELTASONE) 10 mg tablet Dispense 25 tablets of Prednisone 10 mg for a 13 day course of therapy. Please take as directed: 1 tablet every 8 hours for the first 4 days, followed by 1 tablet every 12 hours for the next 4 days, followed by 1 tablet daily for the final 5 days. omeprazole (PRILOSEC) 40 mg capsule Take 1 capsule by mouth once daily. albuterol HFA (PROVENTIL HFA, VENTOLIN HFA) 90 mcg/actuation inhaler Inhale 2 Puffs as instructed every 6 hours as needed. atenolol (TENORMIN) 25 mg tablet Take 0.5 tablets by mouth once daily as needed. For HR > 100 gabapentin (NEURONTIN) 300 mg capsule Take 1 capsule by mouth daily at bedtime for 30 days. dulaglutide (TRULICITY) 3 mg/0.5 mL pen injector Inject 3 mg subcutaneously one time a week for 28 days. (Patient not taking: Reported on 10/09/2024) No current facility-administered medications for this visit. ALLERGIES No Known Allergies Objective: Patient presents nonweightbearing to right leg in CAM boot. Dressing is dry, clean, and intact with normal strike through noted. Problem focus examination to the right lower extremity: Incision site is well coapted without evidence of dehiscence. Mild erythema and edema surrounding surgical site. No drainage. No lymphadenopathy. No lymphangitis. No surrounding cellulitis. No signs of infection. Patient has no pain to palpation of calf. The calf is soft, supple and nontender without evidence of DVT. Negative Charli's test. Satisfactory alignment is noted. Pedal pulses are palpable. Capillary refill time is less than three seconds to all digits. Sensations are intact to light touch. Radiographs:3 views AP, MO, Lat right ankle were taken and evaluated 10/09/2024 Radiographic evaluation: Hardware intact without breakage or loosening. Triplane position is maintained. No acute destructive changes. No soft tissue gas. No complications seen. Assessment: Satisfactory post-operative progress Plan: The patient was educated on clinical examination findings, postoperative prognosis and protocol. All questions were answered to patient's apparent satisfaction. - Xray's reviewed with patient. - Continue ASA 81 mg every 12 hours. - Dicussed the need for long time for nerve pain to resolve and will decrease with time. - Partial WB in the house in the CAM boot - transition from partial weight bearing to full weight bearing in the house. Continue non-WB while out of the house for two weeks, after 2 weeks decrease amount of time using the scooter outside of the house and transition to partial weight bearing. - Hydrate incision site with Mositurizing cream Follow up 4 weeks Sophia Gutierrez DPM PGY-3 I personally saw and evaluated the patient. I reviewed the resident's note. I agree with the resident's assessment and plan unless otherwise noted. Amarjit Storey DPM, FACFAS documented in this encounter [facility] 10-09-2024 Instructions Mary Gutierrez DPM - 10/09/2024 11:30 AM EST Partial WB in the house in the CAM boot - transition from partial weight bearing to full weight bearing in the house Continue non-WB while out of the house for two weeks, after 2 weeks decrease amount of time using the scooter outside of the house and transition to partial weight bearing. Hydrate incision site with Mositurizing cream Continue 1 ASA at night until off scooter Follow up 4 weeks documented in this encounter [facility] 09-18-2024 History of Present illness Narrative DOS: 08/16/2024 POD: 33 days Procedure: Ankle Arthrodesis, Right Distal Tibiofibular Joint Arthrodesis, Right This 34 year old female presents for a post op visit. Patient states they are doing well. Pain is well controlled by oxycodone. Has been nonweightbearing to the right lower extremity in CAM boot. Denies any current nausea, vomiting, fever, chills, shortness of breath, chest pain or calf pain. Has been taking Aspirin for DVT prophylaxis. Denies any other pedal complaints. PAST MEDICAL HISTORY Diagnosis Date Acute right ankle pain Allergies Asthma as a kid Delayed emergence from general anesthesia Generalized anxiety disorder Hammer toe Migraines Palpitations Plantar fasciitis PONV (postoperative nausea and vomiting) Current Outpatient Medications Medication Sig gabapentin (NEURONTIN) 300 mg capsule Take 1 capsule by mouth daily at bedtime for 30 days. amitriptyline (ELAVIL) 10 mg tablet Take 1 tablet by mouth daily at bedtime. (Patient not taking: Reported on 08/23/2024) SUMAtriptan (IMITREX) 25 mg tablet Take 1 tablet (25 mg) by mouth as needed for migraine headache (see administration instructions) (at onset of headache. May repeat after 2 hours.). May repeat dose after 2 hours if needed. Maximum daily dose is 200 mg per day. dulaglutide (TRULICITY) 3 mg/0.5 mL pen injector Inject 3 mg subcutaneously one time a week for 28 days. (Patient not taking: Reported on 08/17/2024) predniSONE (DELTASONE) 10 mg tablet Dispense 25 tablets of Prednisone 10 mg for a 13 day course of therapy. Please take as directed: 1 tablet every 8 hours for the first 4 days, followed by 1 tablet every 12 hours for the next 4 days, followed by 1 tablet daily for the final 5 days. omeprazole (PRILOSEC) 40 mg capsule Take 1 capsule by mouth once daily. albuterol HFA (PROVENTIL HFA, VENTOLIN HFA) 90 mcg/actuation inhaler Inhale 2 Puffs as instructed every 6 hours as needed. atenolol (TENORMIN) 25 mg tablet Take 0.5 tablets by mouth once daily as needed. For HR > 100 No current facility-administered medications for this visit. ALLERGIES No Known Allergies Objective: Patient presents nonweightbearing to right leg in CAM boot. Dressing is dry, clean, and intact with normal strike through noted. Problem focus examination to the right lower extremity: Incision site is well coapted without evidence of dehiscence. Mild erythema and edema surrounding surgical site. No drainage. No lymphadenopathy. No lymphangitis. No surrounding cellulitis. No signs of infection. Patient has no pain to palpation of calf. The calf is soft, supple and nontender without evidence of DVT. Negative Charli's test. Satisfactory alignment is noted. Pedal pulses are palpable. Capillary refill time is less than three seconds to all digits. Sensations are intact to light touch. Assessment: Satisfactory post-operative progress Plan: The patient was educated on clinical examination findings, postoperative prognosis and protocol. All questions were answered to patient's apparent satisfaction. - Bandage removed and new dressing applied. - Patient to continue nonweightbearing to the operative extremity in CAM boot. - Tubigrip and tamiko wrap dispensed. - New Rx Tramadol dispensed. - New Rx Gabapentin dispensed. - Continue ASA every 12 hours. - New work letter dispensed. Follow up 3 weeks with xray's possible transition to partial weightbearing Scribe Attestation: By signing my name below, I, Mary Dean MA, attest that this documentation has been prepared under the direction and in the presence of Amarjit Storey DPM. Electronically Signed: Mary Dean MA, Scribe. September 18, 2024 11:23 AM. Clinician Attestation Statement: The information in this document, created by the paramedical aide for me, accurately reflects the services I personally performed and the decisions made by me. I have reviewed and approved this document for accuracy. Amarjit Storey DPM, FACFAS documented in this encounter [facility] 09-18-2024 Note HNO ID: [id number] Author: AMARJIT STOREY DPM Service: ? Author Type: Physician Type: Progress Notes Filed: 10/13/2024 11:23 Note Text: DOS: 08/16/2024 POD: 33 days Procedure: Ankle Arthrodesis, Right Distal Tibiofibular Joint Arthrodesis, Right This 34 year old female presents for a post op visit. Patient states they are doing well. Pain is well controlled by oxycodone. Has been nonweightbearing to the right lower extremity in CAM boot. Denies any current nausea, vomiting, fever, chills, shortness of breath, chest pain or calf pain. Has been taking Aspirin for DVT prophylaxis. Denies any other pedal complaints. PAST MEDICAL HISTORY Diagnosis Date Acute right ankle pain Allergies Asthma as a kid Delayed emergence from general anesthesia Generalized anxiety disorder Hammer toe Migraines Palpitations Plantar fasciitis PONV (postoperative nausea and vomiting) Current Outpatient Medications Medication Sig gabapentin (NEURONTIN) 300 mg capsule Take 1 capsule by mouth daily at bedtime for 30 days. amitriptyline (ELAVIL) 10 mg tablet Take 1 tablet by mouth daily at bedtime. (Patient not taking: Reported on 08/23/2024) SUMAtriptan (IMITREX) 25 mg tablet Take 1 tablet (25 mg) by mouth as needed for migraine headache (see administration instructions) (at onset of headache. May repeat after 2 hours.). May repeat dose after 2 hours if needed. Maximum daily dose is 200 mg per day. dulaglutide (TRULICITY) 3 mg/0.5 mL pen injector Inject 3 mg subcutaneously one time a week for 28 days. (Patient not taking: Reported on 08/17/2024) predniSONE (DELTASONE) 10 mg tablet Dispense 25 tablets of Prednisone 10 mg for a 13 day course of therapy. Please take as directed: 1 tablet every 8 hours for the first 4 days, followed by 1 tablet every 12 hours for the next 4 days, followed by 1 tablet daily for the final 5 days. omeprazole (PRILOSEC) 40 mg capsule Take 1 capsule by mouth once daily. albuterol HFA (PROVENTIL HFA, VENTOLIN HFA) 90 mcg/actuation inhaler Inhale 2 Puffs as instructed every 6 hours as needed. atenolol (TENORMIN) 25 mg tablet Take 0.5 tablets by mouth once daily as needed. For HR > 100 No current facility-administered medications for this visit. ALLERGIES No Known Allergies Objective: Patient presents nonweightbearing to right leg in CAM boot. Dressing is dry, clean, and intact with normal strike through noted. Problem focus examination to the right lower extremity: Incision site is well coapted without evidence of dehiscence. Mild erythema and edema surrounding surgical site. No drainage. No lymphadenopathy. No lymphangitis. No surrounding cellulitis. No signs of infection. Patient has no pain to palpation of calf. The calf is soft, supple and nontender without evidence of DVT. Negative Charli's test. Satisfactory alignment is noted. Pedal pulses are palpable. Capillary refill time is less than three seconds to all digits. Sensations are intact to light touch. Assessment: Satisfactory post-operative progress Plan: The patient was educated on clinical examination findings, postoperative prognosis and protocol. All questions were answered to patient's apparent satisfaction. - Bandage removed and new dressing applied. - Patient to continue nonweightbearing to the operative extremity in CAM boot. - Tubigrip and tamiko wrap dispensed. - New Rx Tramadol dispensed. - New Rx Gabapentin dispensed. - Continue ASA every 12 hours. - New work letter dispensed. Follow up 3 weeks with xray's possible transition to partial weightbearing Scribe Attestation: By signing my name below, I, Mary Dean MA, attest that this documentation has been prepared under the direction and in the presence of Amarjit Storey DPM. Electronically Signed: Mary Dean MA, Yossi. September 18, 2024 11:23 AM. Clinician Attestation Statement: The information in this document, created by the paramedical aide for me, accurately reflects the services I personally performed and the decisions made by me. I have reviewed and approved this document for accuracy. Amarjit Storey DPM, [facility] 09-04-2024 History of Present illness Narrative DOS: 08/16/2024 POD: 19 days Procedure: Ankle Arthrodesis, Right Distal Tibiofibular Joint Arthrodesis, Right This 34 year old female presents for a post op visit. Patient states they are doing well. Pain is well controlled by Percocet. Rates pain 4/10. Admits to having intermittent aching, throbbing pain.Has been icing and elevating the extremity as instructed preoperatively and has been nonweightbearing to the right lower extremity in CAM boot. Denies any current nausea, vomiting, fever, chills, shortness of breath, chest pain or calf pain. Has been taking Aspirin for DVT prophylaxis. Denies any other pedal complaints PAST MEDICAL HISTORY Diagnosis Date Acute right ankle pain Allergies Asthma as a kid Delayed emergence from general anesthesia Generalized anxiety disorder Hammer toe Migraines Palpitations Plantar fasciitis PONV (postoperative nausea and vomiting) Current Outpatient Medications Medication Sig gabapentin (NEURONTIN) 300 mg capsule Take 1 capsule by mouth daily at bedtime for 30 days. amitriptyline (ELAVIL) 10 mg tablet Take 1 tablet by mouth daily at bedtime. (Patient not taking: Reported on 08/23/2024) SUMAtriptan (IMITREX) 25 mg tablet Take 1 tablet (25 mg) by mouth as needed for migraine headache (see administration instructions) (at onset of headache. May repeat after 2 hours.). May repeat dose after 2 hours if needed. Maximum daily dose is 200 mg per day. dulaglutide (TRULICITY) 3 mg/0.5 mL pen injector Inject 3 mg subcutaneously one time a week for 28 days. (Patient not taking: Reported on 08/17/2024) predniSONE (DELTASONE) 10 mg tablet Dispense 25 tablets of Prednisone 10 mg for a 13 day course of therapy. Please take as directed: 1 tablet every 8 hours for the first 4 days, followed by 1 tablet every 12 hours for the next 4 days, followed by 1 tablet daily for the final 5 days. omeprazole (PRILOSEC) 40 mg capsule Take 1 capsule by mouth once daily. albuterol HFA (PROVENTIL HFA, VENTOLIN HFA) 90 mcg/actuation inhaler Inhale 2 Puffs as instructed every 6 hours as needed. atenolol (TENORMIN) 25 mg tablet Take 0.5 tablets by mouth once daily as needed. For HR > 100 No current facility-administered medications for this visit. ALLERGIES No Known Allergies Objective: Patient presents nonweightbearing to right leg in CAM boot. Dressing is dry, clean, and intact with normal strike through noted. Problem focus examination to the right lower extremity: Incision site is well coapted without evidence of dehiscence. Mild erythema and edema surrounding surgical site. No drainage. No lymphadenopathy. No lymphangitis. No surrounding cellulitis. No signs of infection. Patient has no pain to palpation of calf. The calf is soft, supple and nontender without evidence of DVT. Negative Charli's test. Satisfactory alignment is noted. Pedal pulses are palpable. Capillary refill time is less than three seconds to all digits. Sensations are intact to light touch. Radiographs:3 views AP, MO, Lat right ankle were taken and evaluated. Radiographic evaluation: Hardware intact without breakage or loosening. Triplane position is maintained. No acute destructive changes. No soft tissue gas. No complications seen. Assessment: Satisfactory post-operative progress Plan: The patient was educated on clinical examination findings, postoperative prognosis and protocol. All questions were answered to patient's apparent satisfaction. - Bandage removed and new dressing applied. - Xray's reviewed with patient. - Mesalt and band-aid applied. - Sutures were removed at today's visit and steri-strips applied overlying. - Tubigrip and tamiko wrap placed. - Patient to continue nonweightbearing to the operative extremity in CAM boot. - She can begin showering, no ointment, soaking or peroxide. - Continue ASA 81 mg every 12 hours. - New Rx for oxycodone. Follow up 2 weeks Scribe Attestation: By signing my name below, I, Mary Dean MA, attest that this documentation has been prepared under the direction and in the presence of Amarjit Storey DPM. Electronically Signed: Mary Dean MA, Scribe. September 04, 2024 8:11 AM. . Clinician Attestation Statement: The information in this document, created by the paramedical aide for me, accurately reflects the services I personally performed and the decisions made by me. I have reviewed and approved this document for accuracy. Amarjit Storey DPM, FACFAS documented in this encounter [facility] 09-04-2024 Note HNO ID: [id number] Author: AMARJIT STOREY DPM Service: ? Author Type: Physician Type: Progress Notes Filed: 09/20/2024 07:27 Note Text: DOS: 08/16/2024 POD: 19 days Procedure: Ankle Arthrodesis, Right Distal Tibiofibular Joint Arthrodesis, Right This 34 year old female presents for a post op visit. Patient states they are doing well. Pain is well controlled by Percocet. Rates pain 4/10. Admits to having intermittent aching, throbbing pain.Has been icing and elevating the extremity as instructed preoperatively and has been nonweightbearing to the right lower extremity in CAM boot. Denies any current nausea, vomiting, fever, chills, shortness of breath, chest pain or calf pain. Has been taking Aspirin for DVT prophylaxis. Denies any other pedal complaints PAST MEDICAL HISTORY Diagnosis Date Acute right ankle pain Allergies Asthma as a kid Delayed emergence from general anesthesia Generalized anxiety disorder Hammer toe Migraines Palpitations Plantar fasciitis PONV (postoperative nausea and vomiting) Current Outpatient Medications Medication Sig gabapentin (NEURONTIN) 300 mg capsule Take 1 capsule by mouth daily at bedtime for 30 days. amitriptyline (ELAVIL) 10 mg tablet Take 1 tablet by mouth daily at bedtime. (Patient not taking: Reported on 08/23/2024) SUMAtriptan (IMITREX) 25 mg tablet Take 1 tablet (25 mg) by mouth as needed for migraine headache (see administration instructions) (at onset of headache. May repeat after 2 hours.). May repeat dose after 2 hours if needed. Maximum daily dose is 200 mg per day. dulaglutide (TRULICITY) 3 mg/0.5 mL pen injector Inject 3 mg subcutaneously one time a week for 28 days. (Patient not taking: Reported on 08/17/2024) predniSONE (DELTASONE) 10 mg tablet Dispense 25 tablets of Prednisone 10 mg for a 13 day course of therapy. Please take as directed: 1 tablet every 8 hours for the first 4 days, followed by 1 tablet every 12 hours for the next 4 days, followed by 1 tablet daily for the final 5 days. omeprazole (PRILOSEC) 40 mg capsule Take 1 capsule by mouth once daily. albuterol HFA (PROVENTIL HFA, VENTOLIN HFA) 90 mcg/actuation inhaler Inhale 2 Puffs as instructed every 6 hours as needed. atenolol (TENORMIN) 25 mg tablet Take 0.5 tablets by mouth once daily as needed. For HR > 100 No current facility-administered medications for this visit. ALLERGIES No Known Allergies Objective: Patient presents nonweightbearing to right leg in CAM boot. Dressing is dry, clean, and intact with normal strike through noted. Problem focus examination to the right lower extremity: Incision site is well coapted without evidence of dehiscence. Mild erythema and edema surrounding surgical site. No drainage. No lymphadenopathy. No lymphangitis. No surrounding cellulitis. No signs of infection. Patient has no pain to palpation of calf. The calf is soft, supple and nontender without evidence of DVT. Negative Charli's test. Satisfactory alignment is noted. Pedal pulses are palpable. Capillary refill time is less than three seconds to all digits. Sensations are intact to light touch. Radiographs:3 views AP, MO, Lat right ankle were taken and evaluated. Radiographic evaluation: Hardware intact without breakage or loosening. Triplane position is maintained. No acute destructive changes. No soft tissue gas. No complications seen. Assessment: Satisfactory post-operative progress Plan: The patient was educated on clinical examination findings, postoperative prognosis and protocol. All questions were answered to patient's apparent satisfaction. - Bandage removed and new dressing applied. - Xray's reviewed with patient. - Mesalt and band-aid applied. - Sutures were removed at today's visit and steri-strips applied overlying. - Tubigrip and tamiko wrap placed. - Patient to continue nonweightbearing to the operative extremity in CAM boot. - She can begin showering, no ointment, soaking or peroxide. - Continue ASA 81 mg every 12 hours. - New Rx for oxycodone. Follow up 2 weeks Scribe Attestation: By signing my name below, I, Mary Dean MA, attest that this documentation has been prepared under the direction and in the presence of Amarjit Storey DPM. Electronically Signed: Mary Dean MA, Scribe. September 04, 2024 8:11 AM. . Clinician Attestation Statement: The information in this document, created by the paramedical aide for me, accurately reflects the services I personally performed and the decisions made by me. I have reviewed and approved this document for accuracy. Amarjit Storey DPM, [facility] 08-28-2024 Instructions Marguerite Long DPM - 08/28/2024 11:04 AM EST Continue mesalt and cleaning with hibiclens Continue nonweightbearing in a boot documented in this encounter [facility] 08-28-2024 History of Present illness Narrative DOS: 08/16/2024 POD: 12 days Procedure: Ankle Arthrodesis, Right Distal Tibiofibular Joint Arthrodesis, Right This 34 year old female presents for a post op visit. Patient states they are doing well. Pain is well controlled by Percocet . Does get tingling at times. Has been icing and elevating the extremity as instructed preoperatively and has been nonweightbearing to the right lower extremity in a splint. Denies any current nausea, vomiting, fever, chills, shortness of breath, chest pain or calf pain. Has been taking Aspirin for DVT prophylaxis. Denies any other pedal complaints PAST MEDICAL HISTORY Diagnosis Date Acute right ankle pain Allergies Asthma as a kid Delayed emergence from general anesthesia Generalized anxiety disorder Hammer toe Migraines Palpitations Plantar fasciitis PONV (postoperative nausea and vomiting) Current Outpatient Medications Medication Sig doxycycline (VIBRA-TABS) 100 mg tablet Take 1 tablet by mouth two times a day for 10 days. oxyCODONE-acetaminophen (PERCOCET) 5-325 mg tablet Take 1 tablet by mouth every 4 hours as needed for pain for up to 7 days. for pain. oxyCODONE-acetaminophen (PERCOCET) 5-325 mg tablet Take 1-2 tablets by mouth every 4 hours as needed for pain for up to 7 days. gabapentin (NEURONTIN) 300 mg capsule Take 1 capsule by mouth daily at bedtime for 30 days. amitriptyline (ELAVIL) 10 mg tablet Take 1 tablet by mouth daily at bedtime. (Patient not taking: Reported on 08/23/2024) SUMAtriptan (IMITREX) 25 mg tablet Take 1 tablet (25 mg) by mouth as needed for migraine headache (see administration instructions) (at onset of headache. May repeat after 2 hours.). May repeat dose after 2 hours if needed. Maximum daily dose is 200 mg per day. dulaglutide (TRULICITY) 3 mg/0.5 mL pen injector Inject 3 mg subcutaneously one time a week for 28 days. (Patient not taking: Reported on 08/17/2024) predniSONE (DELTASONE) 10 mg tablet Dispense 25 tablets of Prednisone 10 mg for a 13 day course of therapy. Please take as directed: 1 tablet every 8 hours for the first 4 days, followed by 1 tablet every 12 hours for the next 4 days, followed by 1 tablet daily for the final 5 days. omeprazole (PRILOSEC) 40 mg capsule Take 1 capsule by mouth once daily. albuterol HFA (PROVENTIL HFA, VENTOLIN HFA) 90 mcg/actuation inhaler Inhale 2 Puffs as instructed every 6 hours as needed. atenolol (TENORMIN) 25 mg tablet Take 0.5 tablets by mouth once daily as needed. For HR > 100 No current facility-administered medications for this visit. ALLERGIES No Known Allergies Objective: Patient presents nonweightbearing to right leg in splint. Dressing is dry, clean, and intact with normal strike through noted. Problem focus examination to the right lower extremity: Incision site is well coapted without evidence of dehiscence. Mild erythema and edema surrounding surgical site. Skin around medial aspect of incision discolored with minor necrotic changes and slight blistering appreciated. No evidence of infection. No drainage. No lymphadenopathy. No lymphangitis. No surrounding cellulitis. Patient has no pain to palpation of calf. The calf is soft, supple and nontender without evidence of DVT. Negative Charli's test. Satisfactory alignment is noted. Pedal pulses are palpable. Capillary refill time is less than three seconds to all digits. Sensations are intact to light touch. Radiographs: not obtained during this visit Assessment: Satisfactory post-operative progress Plan: The patient was educated on clinical examination findings, postoperative prognosis and protocol. All questions were answered to patient's apparent satisfaction. - Bandage removed and new dressing applied. - Sutures were left intact at today's visit . - Patient to continue nonweightbearing to the operative extremity in CAM boot - Continue to finish Doxycyline as prescribed. - Mesalt and dry dressing applied to incision site. Follow up in 1 week. Marguerite Long DPM PGY-3 I personally saw and evaluated the patient. I reviewed the resident's note. I agree with the resident's assessment and plan unless otherwise noted. Amarjit Storey DPM, FACFAS documented in this encounter [facility] 08-28-2024 Note HNO ID: [id number] Author: AMARJIT STOREY DPM Service: ? Author Type: Physician Type: Progress Notes Filed: 09/03/2024 17:39 Note Text: DOS: 08/16/2024 POD: 12 days Procedure: Ankle Arthrodesis, Right Distal Tibiofibular Joint Arthrodesis, Right This 34 year old female presents for a post op visit. Patient states they are doing well. Pain is well controlled by Percocet . Does get tingling at times. Has been icing and elevating the extremity as instructed preoperatively and has been nonweightbearing to the right lower extremity in a splint. Denies any current nausea, vomiting, fever, chills, shortness of breath, chest pain or calf pain. Has been taking Aspirin for DVT prophylaxis. Denies any other pedal complaints PAST MEDICAL HISTORY Diagnosis Date Acute right ankle pain Allergies Asthma as a kid Delayed emergence from general anesthesia Generalized anxiety disorder Hammer toe Migraines Palpitations Plantar fasciitis PONV (postoperative nausea and vomiting) Current Outpatient Medications Medication Sig doxycycline (VIBRA-TABS) 100 mg tablet Take 1 tablet by mouth two times a day for 10 days. oxyCODONE-acetaminophen (PERCOCET) 5-325 mg tablet Take 1 tablet by mouth every 4 hours as needed for pain for up to 7 days. for pain. oxyCODONE-acetaminophen (PERCOCET) 5-325 mg tablet Take 1-2 tablets by mouth every 4 hours as needed for pain for up to 7 days. gabapentin (NEURONTIN) 300 mg capsule Take 1 capsule by mouth daily at bedtime for 30 days. amitriptyline (ELAVIL) 10 mg tablet Take 1 tablet by mouth daily at bedtime. (Patient not taking: Reported on 08/23/2024) SUMAtriptan (IMITREX) 25 mg tablet Take 1 tablet (25 mg) by mouth as needed for migraine headache (see administration instructions) (at onset of headache. May repeat after 2 hours.). May repeat dose after 2 hours if needed. Maximum daily dose is 200 mg per day. dulaglutide (TRULICITY) 3 mg/0.5 mL pen injector Inject 3 mg subcutaneously one time a week for 28 days. (Patient not taking: Reported on 08/17/2024) predniSONE (DELTASONE) 10 mg tablet Dispense 25 tablets of Prednisone 10 mg for a 13 day course of therapy. Please take as directed: 1 tablet every 8 hours for the first 4 days, followed by 1 tablet every 12 hours for the next 4 days, followed by 1 tablet daily for the final 5 days. omeprazole (PRILOSEC) 40 mg capsule Take 1 capsule by mouth once daily. albuterol HFA (PROVENTIL HFA, VENTOLIN HFA) 90 mcg/actuation inhaler Inhale 2 Puffs as instructed every 6 hours as needed. atenolol (TENORMIN) 25 mg tablet Take 0.5 tablets by mouth once daily as needed. For HR > 100 No current facility-administered medications for this visit. ALLERGIES No Known Allergies Objective: Patient presents nonweightbearing to right leg in splint. Dressing is dry, clean, and intact with normal strike through noted. Problem focus examination to the right lower extremity: Incision site is well coapted without evidence of dehiscence. Mild erythema and edema surrounding surgical site. Skin around medial aspect of incision discolored with minor necrotic changes and slight blistering appreciated. No evidence of infection. No drainage. No lymphadenopathy. No lymphangitis. No surrounding cellulitis. Patient has no pain to palpation of calf. The calf is soft, supple and nontender without evidence of DVT. Negative Charli's test. Satisfactory alignment is noted. Pedal pulses are palpable. Capillary refill time is less than three seconds to all digits. Sensations are intact to light touch. Radiographs: not obtained during this visit Assessment: Satisfactory post-operative progress Plan: The patient was educated on clinical examination findings, postoperative prognosis and protocol. All questions were answered to patient's apparent satisfaction. - Bandage removed and new dressing applied. - Sutures were left intact at today's visit . - Patient to continue nonweightbearing to the operative extremity in CAM boot - Continue to finish Doxycyline as prescribed. - Mesalt and dry dressing applied to incision site. Follow up in 1 week. Marguerite Long DPM PGY-3 I personally saw and evaluated the patient. I reviewed the resident's note. I agree with the resident's assessment and plan unless otherwise noted. Amarjit Storey DPM, [facility] 08-23-2024 History of Present illness Narrative DOS: 08/16/2024 POD: 7 days Procedure: Ankle Arthrodesis, Right Distal Tibiofibular Joint Arthrodesis, Right This 34 year old female presents for a post op visit. Patient states they are doing well. Pain is well controlled by Percocet . Has been icing and elevating the extremity as instructed preoperatively and has been nonweightbearing to the right lower extremity in a splint. Denies any current nausea, vomiting, fever, chills, shortness of breath, chest pain or calf pain. She states the pain is slightly better with the splint off. Has been taking Aspirin for DVT prophylaxis. Denies any other pedal complaints PAST MEDICAL HISTORY Diagnosis Date Acute right ankle pain Allergies Asthma as a kid Delayed emergence from general anesthesia Generalized anxiety disorder Hammer toe Migraines Palpitations Plantar fasciitis PONV (postoperative nausea and vomiting) Current Outpatient Medications Medication Sig oxyCODONE-acetaminophen (PERCOCET) 5-325 mg tablet Take 1-2 tablets by mouth every 4 hours as needed for pain for up to 7 days. gabapentin (NEURONTIN) 300 mg capsule Take 1 capsule by mouth daily at bedtime for 30 days. amitriptyline (ELAVIL) 10 mg tablet Take 1 tablet by mouth daily at bedtime. SUMAtriptan (IMITREX) 25 mg tablet Take 1 tablet (25 mg) by mouth as needed for migraine headache (see administration instructions) (at onset of headache. May repeat after 2 hours.). May repeat dose after 2 hours if needed. Maximum daily dose is 200 mg per day. dulaglutide (TRULICITY) 3 mg/0.5 mL pen injector Inject 3 mg subcutaneously one time a week for 28 days. (Patient not taking: Reported on 08/17/2024) predniSONE (DELTASONE) 10 mg tablet Dispense 25 tablets of Prednisone 10 mg for a 13 day course of therapy. Please take as directed: 1 tablet every 8 hours for the first 4 days, followed by 1 tablet every 12 hours for the next 4 days, followed by 1 tablet daily for the final 5 days. omeprazole (PRILOSEC) 40 mg capsule Take 1 capsule by mouth once daily. albuterol HFA (PROVENTIL HFA, VENTOLIN HFA) 90 mcg/actuation inhaler Inhale 2 Puffs as instructed every 6 hours as needed. atenolol (TENORMIN) 25 mg tablet Take 0.5 tablets by mouth once daily as needed. For HR > 100 No current facility-administered medications for this visit. ALLERGIES No Known Allergies Objective: Patient presents nonweightbearing to right leg in a splint. Dressing is dry, clean, and intact with mild strike through noted. Problem focus examination to the right lower extremity: Incision site is well coapted without evidence of dehiscence. Mild erythema and edema surrounding surgical site. Inflammation Small drainage. No lymphadenopathy. No lymphangitis. No surrounding cellulitis. No signs of infection. Patient has no pain to palpation of calf. The calf is soft, supple and nontender without evidence of DVT. Negative Charli's test. Satisfactory alignment is noted. Pedal pulses are palpable. Capillary refill time is less than three seconds to all digits. Sensations are intact to light touch. Assessment: Satisfactory post-operative progress Plan: The patient was educated on clinical examination findings, postoperative prognosis and protocol. All questions were answered to patient's apparent satisfaction. - Bandage removed and new dressing applied. - Sutures were left intact at today's visit . - Patient to continue nonweightbearing to the operative extremity. - Mesalt and gauze dispensed and advised to change 1-2 times daily. - Tall CAM boot fitted and dispensed. - New Rx for percocet and doxycycline dispensed. - Advised to call if any change or concerns. Follow up Next Monday. Scribe Attestation: By signing my name below, I, Mary Dean MA, attest that this documentation has been prepared under the direction and in the presence of Amarjit Storey DPM. Electronically Signed: Mary Dean MA, Scribe. August 23, 2024 2:03 PM. Clinician Attestation Statement: The information in this document, created by the paramedical aide for me, accurately reflects the services I personally performed and the decisions made by me. I have reviewed and approved this document for accuracy. Amarjit Storey DPM, FACFAS documented in this encounter [facility] 08-23-2024 Note HNO ID: [id number] Author: AMARJIT STOREY DPM Service: ? Author Type: Physician Type: Progress Notes Filed: 09/20/2024 07:05 Note Text: DOS: 08/16/2024 POD: 7 days Procedure: Ankle Arthrodesis, Right Distal Tibiofibular Joint Arthrodesis, Right This 34 year old female presents for a post op visit. Patient states they are doing well. Pain is well controlled by Percocet . Has been icing and elevating the extremity as instructed preoperatively and has been nonweightbearing to the right lower extremity in a splint. Denies any current nausea, vomiting, fever, chills, shortness of breath, chest pain or calf pain. She states the pain is slightly better with the splint off. Has been taking Aspirin for DVT prophylaxis. Denies any other pedal complaints PAST MEDICAL HISTORY Diagnosis Date Acute right ankle pain Allergies Asthma as a kid Delayed emergence from general anesthesia Generalized anxiety disorder Hammer toe Migraines Palpitations Plantar fasciitis PONV (postoperative nausea and vomiting) Current Outpatient Medications Medication Sig oxyCODONE-acetaminophen (PERCOCET) 5-325 mg tablet Take 1-2 tablets by mouth every 4 hours as needed for pain for up to 7 days. gabapentin (NEURONTIN) 300 mg capsule Take 1 capsule by mouth daily at bedtime for 30 days. amitriptyline (ELAVIL) 10 mg tablet Take 1 tablet by mouth daily at bedtime. SUMAtriptan (IMITREX) 25 mg tablet Take 1 tablet (25 mg) by mouth as needed for migraine headache (see administration instructions) (at onset of headache. May repeat after 2 hours.). May repeat dose after 2 hours if needed. Maximum daily dose is 200 mg per day. dulaglutide (TRULICITY) 3 mg/0.5 mL pen injector Inject 3 mg subcutaneously one time a week for 28 days. (Patient not taking: Reported on 08/17/2024) predniSONE (DELTASONE) 10 mg tablet Dispense 25 tablets of Prednisone 10 mg for a 13 day course of therapy. Please take as directed: 1 tablet every 8 hours for the first 4 days, followed by 1 tablet every 12 hours for the next 4 days, followed by 1 tablet daily for the final 5 days. omeprazole (PRILOSEC) 40 mg capsule Take 1 capsule by mouth once daily. albuterol HFA (PROVENTIL HFA, VENTOLIN HFA) 90 mcg/actuation inhaler Inhale 2 Puffs as instructed every 6 hours as needed. atenolol (TENORMIN) 25 mg tablet Take 0.5 tablets by mouth once daily as needed. For HR > 100 No current facility-administered medications for this visit. ALLERGIES No Known Allergies Objective: Patient presents nonweightbearing to right leg in a splint. Dressing is dry, clean, and intact with mild strike through noted. Problem focus examination to the right lower extremity: Incision site is well coapted without evidence of dehiscence. Mild erythema and edema surrounding surgical site. Inflammation Small drainage. No lymphadenopathy. No lymphangitis. No surrounding cellulitis. No signs of infection. Patient has no pain to palpation of calf. The calf is soft, supple and nontender without evidence of DVT. Negative Charli's test. Satisfactory alignment is noted. Pedal pulses are palpable. Capillary refill time is less than three seconds to all digits. Sensations are intact to light touch. Assessment: Satisfactory post-operative progress Plan: The patient was educated on clinical examination findings, postoperative prognosis and protocol. All questions were answered to patient's apparent satisfaction. - Bandage removed and new dressing applied. - Sutures were left intact at today's visit . - Patient to continue nonweightbearing to the operative extremity. - Mesalt and gauze dispensed and advised to change 1-2 times daily. - Tall CAM boot fitted and dispensed. - New Rx for percocet and doxycycline dispensed. - Advised to call if any change or concerns. Follow up Next Monday. Scribe Attestation: By signing my name below, I, Mary Dean MA, attest that this documentation has been prepared under the direction and in the presence of Amarjit Storey DPM. Electronically Signed: Mary Dean MA, Yossi. August 23, 2024 2:03 PM. Clinician Attestation Statement: The information in this document, created by the paramedical aide for me, accurately reflects the services I personally performed and the decisions made by me. I have reviewed and approved this document for accuracy. Amarjit Storey DPM, FACFAS [facility] 08-22-2024 Telephone encounter Note Done Thanks Amarjit Storey DPM, FACFAS [facility] 08-22-2024 Miscellaneous Notes Done Thanks Amarjit Storey DPM, FACFAS documented in this encounter [facility] 08-22-2024 Note HNO ID: [id number] Author: JEANNETTE NAVARRO RN Service: ? Author Type: Registered Nurse Type: Progress Notes Filed: 08/22/2024 14:00 Note Text: Call placed for TCM follow up. No answer. Left message with name and number. Jeannette Navarro RN 08/22/24 [facility] 08-22-2024 History of Present illness Narrative Call placed for TCM follow up. No answer. Left message with name and number. Jeannette Navarro RN 08/22/24 TRANSITIONAL CARE MANAGEMENT (TCM) COMMUNITY MONITORING PROGRAM - [facility] Provider Action/FYI: SUMMARY: Pt discharged from [facility] on 08/19/24. Admitted for: ankle pain Patient seen Inpatient DEMETRIUS Visit? No. Patient seen ICARE Program? No. Contact made with patient: Yes Hi my name is Jeannette Navarro RN and I am calling from the [facility] on behalf of your PCP, Noelle Blanc APRN.DIE DRAWING CHECKER I understand you were recently in the hospital so I am calling to check in with you to ensure you are feeling well now that you re home. Do you mind if I ask you a few questions related to your hospital stay and well-being Yes - However, now is not a good time, next outreach attempt will be on day of the preference of the patient Unable to reach patient on cell number provided. Spoke with significant other DJ who states patient is having cell phone problems. DJ states patient is doing better, he is at work and will pass along RN name and number to patient. Outreach Ended documented in this encounter [facility] 08-20-2024 Note HNO ID: [id number] Author: JEANNETTE NAVARRO RN Service: ? Author Type: Registered Nurse Type: Progress Notes Filed: 08/22/2024 14:00 Note Text: TRANSITIONAL CARE MANAGEMENT (TCM) COMMUNITY MONITORING PROGRAM - [facility] Provider Action/FYI: SUMMARY: Pt discharged from [facility] on 08/19/24. Admitted for: ankle pain Patient seen Inpatient DEMETRIUS Visit? No. Patient seen ICARE Program? No. Contact made with patient: Yes Hi my name is Jeannetet Navarro RN and I am calling from the [facility] on behalf of your PCP, Noelle Blanc APRN.CNP I understand you were recently in the hospital so I am calling to check in with you to ensure you are feeling well now that you?re home. Do you mind if I ask you a few questions related to your hospital stay and well-being Yes - However, now is not a good time, next outreach attempt will be on day of the preference of the patient Unable to reach patient on cell number provided. Spoke with significant other DJ who states patient is having cell phone problems. DJ states patient is doing better, he is at work and will pass along RN name and number to patient. Outreach Ended [facility] 08-20-2024 Note Patient Outreach ( AC) GAYLE THOMPSON ([id number]) 1990 F Date Time Provider Department 08/20/24 JEANNETTE NAVARRO [facility] During your visit today, we recorded the following information about you: Jeannette Navarro RN 08/22/2024 2:00 PM Signed TRANSITIONAL CARE MANAGEMENT (TCM) COMMUNITY MONITORING PROGRAM - [facility] Provider Action/FYI: SUMMARY: Pt discharged from [facility] on 08/19/24. Admitted for: ankle pain Patient seen Inpatient DEMETRIUS Visit? No. Patient seen ICARE Program? No. Contact made with patient: Yes Hi my name is Jeannette Navarro RN and I am calling from the [facility] on behalf of your PCP, Noelle Blanc APRN.CNP I understand you were recently in the hospital so I am calling to check in with you to ensure you are feeling well now that you?re home. Do you mind if I ask you a few questions related to your hospital stay and well-being Yes - However, now is not a good time, next outreach attempt will be on day of the preference of the patient Unable to reach patient on cell number provided. Spoke with significant other DJ who states patient is having cell phone problems. KWAME states patient is doing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 Obesity Sister Thyroid Sister other (Gallbladder) Sister Asthma Brother Alzheimer's Disease Brother Diabetes Brother Cancer Maternal Grandmother Arthritis Maternal Grandmother COPD Maternal Grandmother other (ibs) Maternal Grandfather Obesity Paternal Grandmother other (colitis) Paternal Grandmother other (GERD) Daughter ADD/ADHD Son Allergies Son several other (gerd) Son Colon Cancer Other Social History Tobacco Use Smoking status: Never Smokeless tobacco: Never Vaping Use Vaping status: Never Used Substance Use Topics Alcohol use: Yes Comment: occ.< once monthly Drug use: Never Prior to Admission medications as of 08/08/24 1055 Medication Sig Last Dose Taking amitriptyline (ELAVIL) 10 mg tablet Take 1 tablet by mouth daily at bedtime. Taking Yes SUMAtriptan (IMITREX) 25 mg tablet Take 1 tablet (25 mg) by mouth as needed for migraine headache (see administration instructions) (at onset of headache. May repeat after 2 hours.). May repeat dose after 2 hours if needed. Maximum daily dose is 200 mg per day. Taking Yes dulaglutide (TRULICITY) 3 mg/0.5 mL pen injector Inject 3 mg subcutaneously one time a week for 28 days. Taking Yes predniSONE (DELTASONE) 10 mg tablet Dispense 25 tablets of Prednisone 10 mg for a 13 day course of therapy. Please take as directed: 1 tablet every 8 hours for the first 4 days, followed by 1 tablet every 12 hours for the next 4 days, followed by 1 tablet daily for the final 5 days. Taking Yes omeprazole (PRILOSEC) 40 mg capsule Take 1 capsule by mouth once daily. Taking Yes Naproxen Sodium 550 mg tablet Take 1 tablet by mouth two times a day with meals. Taking Yes albuterol HFA (PROVENTIL HFA, VENTOLIN HFA) 90 mcg/actuation inhaler Inhale 2 Puffs as instructed every 6 hours as needed. Taking Yes atenolol (TENORMIN) 25 mg tablet Take 0.5 tablets by mouth once daily as needed. For HR > 100 Taking Yes No medication comments found. ALLERGIES No Known Allergies Objective PHYSICAL EXAM: General: alert and oriented and healthy appearance. Pertinent negatives noted - not distressed. Skin: normal color, no rash or lesions. HEENT: pupils equal round. Cardiovascular: regular rate and rhythm, normal S1 and S2, no rub, murmurs, or gallop. Pulse characterized as regular. Respiratory: normal breath sounds, no wheezes or crackles. No chest wall deformity or tenderness. Abdomen: bowel sounds present. Extremities: Positive for edema (non pitting edema noted to RLE). Neurological: normal cognition and motor skills. Gait normal. No weakness or sensory deficit. PAIN ASSESSMENT: Pain Pain Level: 4 VITALS: BP 121/82 Pulse 80 Temp 98.2 Resp 16 Ht 5' 8 (1.73m) Wt 241 lb (109.3kg) SpO2 96% BMI 36.65 kg/(m^2). Diagnostic tests reviewed for today's visit: Lab Value Units Date High Low HB 15.1 g/dL 02/19/2024 15.5 11.5 HCT 44.1 % 02/19/2024 46.0 36.0 WBC 6.12 k/uL 02/19/2024 11.00 3.70 PLT 202 k/uL 02/19/2024 400 150 NA 141 mmol/L 03/01/2024 144 136 K 4.0 mmol/L 03/01/2024 5.1 3.7 GLUC 98 mg/dL 03/01/2024 99 74 BUN 16 mg/dL 03/01/2024 21 7 CREAT 0.97 mg/dL 03/01/2024 0.96 0.58 PTSEC No results within date range. INR No results within date range. APTT No results within date range. ALT 26 U/L 03/01/2024 38 7 AST 22 U/L 03/01/2024 35 13 TBILI 0.5 mg/dL 03/01/2024 1.3 0.2 TSH 1.090 mIU/L 06/06/2024 4.200 0.270 Lab Value Units Date High Low HCGQT No results within date range. UHCG No results within date range. HCG, BODY* No results within date range. Lab Value Units Date High Low ABORHD No results within date range. ABSCREEN No results within date range. Hemoglobin A1C (%) Date Value 03/01/2024 5.3 No results found for this or any previous visit (from the past 8760 hour(s)). Recent Results (from the past 09778 hour(s)) ECHO Collection Time: 04/18/23 10:11 AM Impression CONCLUSIONS: - Exam indication: Palpitations - The left ventricle is normal in size. There is no left ventricular hypertrophy. Left ventricular systolic function is hyperdynamic. EF = 74 5% (2D biplane) Normal left ventricular diastolic function. - The right ventricle is normal in size. Right ventricular systolic function is normal. Tricuspid annular displacement is 2.6 cm. - There are no significant valvular abnormalities. - The patient has not had a prior [facility] echocardiographic exam for comparison. * * * Final * * * Patient denies blood thinners The Following Tests/Procedures Have Been Initiated: No labs ordered per surgeon in [facility] Assessment/Plan Diagnosis: Post-traumatic arthritis of right ankle [M19.171] Osteoarthritis of right ankle or foot [M19.071] PLAN Planned Procedure: Procedure(s) with comments: ARTHRODESIS ANKLE (Right) - Popliteal block ARTHRODESIS TIBIOFIBULAR JOINT PROXIMAL OR DISTAL (Right) I spent a total of 40 minutes on the date of the service which included preparing to see the patient, [id number] patient care, completing clinical documentation, obtaining and/or reviewing separately obtained history, performing a medically appropriate examination, and counseling and educating the patient/family/caregiver. Instructions Given to Patient: Instructions located in the after visit summary. Patient given verbal and written preop instructions and voices comprehension and compliance. SIGNATURE: Tracey Fishman APRN.CNP PATIENT NAME: Gayle Thompson DATE: August 08, 2024 TIME: 10:00 AM PAGER/CONTACT #: [facility] 08-08-2024 History and physical note Images from the original note were not included. [facility] HISTORY AND PHYSICAL EXAMINATION SERVICE DATE: 08/08/2024 SERVICE TIME: 11:17 AM PRIMARY CARE PHYSICIAN: Noelle Blanc APRN.CNP Assessment Patient has the following medical conditions which may affect lynn-operative course: Pre-op examination see note for medical conditions which may affect lynn-operative course that were addressed at today's visit. Post-traumatic arthritis of right ankle Surgery scheduled 08/16/2024 Osteoarthritis of right ankle Surgery scheduled 08/16/2024 PSVT (paroxysmal supraventricular tachycardia) Atenolol as needed-instructed to take as needed. States she has not taken in over a month. 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 Patient has not started. Was on Topamax previous which did not help. Getting about 5-6 migraines per month. Instructed she can start her medications as prescribed and hold Imitrex 24 hours prior to surgery. Mild intermittent asthma without complication Albuterol as needed Instructed to use as needed and bring day of surgery. 02/2024 in ED for asthma attack. Treated with prednisone. Not admitted. No ED visits since then. Gastroesophageal reflux disease without esophagitis Controlled with PPI-instructed to take DOS Class 2 obesity without serious comorbidity with body mass index (BMI) of 36.0 to 36.9 in adult BMI 36.64 Carter Activity Status Index: METS: Climb a flight of stairs or walk up a hill (5.50 METs) DASI Score: 5.5 Patient denies any chest pain or undue shortness of breath with the above physical activity. ARISCAT Score: Age: <=50 Preoperative SpO2: >=96% Respiratory infection in the last month: No Preoperative anemia: No Surgical incision: peripheral Duration of surgery: >3 hrs Emergency procedure: No ARISCAT Score: 23 ANESTHESIA FINDINGS: Intubation History: No history of difficult intubation Significant Anesthesia Considerations: potential postop nausea/vomiting potential slow emergence Airway History: No history of difficult airway I - PHYSICAL EVALUATION AIRWAY Patient intubated: No. DENTAL II - ANESTHESIA PLAN Anesthetic Plan: general Beta Adán Monitoring Plan Post Procedure Analgesic Plan Prepared for Surgery: CONSULTS: Patient does not require consults for optimization at this time Planned Anesthetic: general The Following Tests/Procedures Have Been Initiated: No orders of the defined types were placed in this encounter. REASON FOR VISIT: Gayle Thompson is a 33 year old female who is scheduled for Procedure(s) with comments: ARTHRODESIS ANKLE (Right) - Popliteal block ARTHRODESIS TIBIOFIBULAR JOINT PROXIMAL OR DISTAL (Right) at the request of Amarjit Ulloa DPM for routine H&P. My final recommendation will be communicated back to the requesting physician by way of shared medical record or letter. Subjective The patient has the following: COVID-19 Immunization Status Overdue - Covid-19 Vaccine ( season) Overdue since 04/21/2024 09/16/2020 Imm Admin: COVID-19 original vaccine, full dose, monovalent (MODERNA) 08/19/2020 Imm Admin: COVID-19 original vaccine, full dose, monovalent (MODERNA) CHIEF COMPLAINT: The reason for this visit is to perform a comprehensive review of the patient's past medical history, assess their current health status and obtain any additional testing required based on anesthesia guidelines. We will also identify any potential anesthesia problems or contraindications to the planned procedure. HPI: Patient is a 33 year old female who presents for pre surgical testing. She has h/o right ankle fracture with ORIF in 07/2021. She had removal of hardware, arthrotomy with synovectomy, right ankle and partial excision of bone in 10/2023. She continues to have pain in the right ankle. Today she rates the pain 4/10. Describes as an aching pain. Activity worsens the pain, rest and elevation and Naproxen and prednisone improves the pain. After discussion with the surgeon patient agrees to surgical intervention. REVIEW OF SYSTEMS: General: Negative for: unintentional weight change, malaise and fever. Neurological: Positive for: headaches. Negative for: seizures and strokes. Respiratory: Positive for: asthma. Negative for: COPD, pneumonia within 6 weeks, URI < 2 weeks and obstructive sleep apnea. Cardiovascular: + PSVT Negative for: atrial fibrillation, CAD, chest pain, CHF, DVT/PE, hyperlipidemia and hypertension. GI: Positive for: GERD Negative for: abdominal pain, nausea and vomiting. : Negative for: dysuria, hematuria and renal failure. 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 Endocrine: Negative for: diabetes mellitus, hyperthyroidism and hypothyroidism. Hematology: Negative for: anemia, factor V Leiden and von Willebrand disease. Oncology: No history of CA metastasis, chemo within 30 days, or radiotherapy within 90 days. No history of oncological symptoms or problems. Psych: Positive for: anxiety. Negative for: depression. Musculoskeletal: See HPI. Positive for: back pain and joint pain. Skin: Negative for lesions, rash and itching. Implanted Devices: Has implanted device Implants: hardware in right ankle and right foot. Possible pin in left great toe.. PAST MEDICAL HISTORY Diagnosis Date Acute right ankle pain Allergies Asthma as a kid Delayed emergence from general anesthesia Generalized anxiety disorder Hammer toe Migraines Palpitations Plantar fasciitis PONV (postoperative nausea and vomiting) PAST SURGICAL HISTORY Procedure Laterality Date ANKLE SURGERY HX Right 07/27/2021 APPLICATION UNIPLANE EXTERNAL FIXATION SYSTEM Right 07/18/2021 CLTX FX W8 BRG ARTCLR PRTN DSTL TIB W/SKEL TRACJ Right 07/18/2021 CORRECTION HAMMERTOE Right 2010, 2013 2017 EXTRACTION ERUPTED TOOTH 2016 wisdom teeth PAST SURGICAL HISTORY OF Right 10/23/2023 1. Removal internal fixation, right tibia PROCEDURE Bilateral 2010 pins in big toes PT ED OBSTETRICS & GYNECOLOGY 08/2023 ENDOMETRIAL ABLATION SALPINGECTOMY COMPLETE/PARTIAL UNI/BI SPX 2020 FAMILY HISTORY Problem Relation Age of Onset other (Circulation problems) Mother other (High Blood Pressure) Mother other (fibromyalgia) Mother Hypertension Mother Cancer Mother cervical cancer Allergies Mother Bee venom, seasonal Depression Mother Anxiety disorder Mother Migraines Mother Thyroid Mother ADD/ADHD Father Migraines Sister Anxiety disorder Sister Depression Sister Asthma Sister Obesity Sister Thyroid Sister other (Gallbladder) Sister Asthma Brother Alzheimer's Disease Brother Diabetes Brother Cancer Maternal Grandmother Arthritis Maternal Grandmother COPD Maternal Grandmother other (ibs) Maternal Grandfather Obesity Paternal Grandmother other (colitis) Paternal Grandmother other (GERD) Daughter ADD/ADHD Son Allergies Son several other (gerd) Son Colon Cancer Other Social History Tobacco Use Smoking status: Never Smokeless tobacco: Never Vaping Use Vaping status: Never Used Substance Use Topics Alcohol use: Yes Comment: occ.< once monthly Drug use: Never Prior to Admission medications as of 08/08/24 1055 Medication Sig Last Dose Taking amitriptyline (ELAVIL) 10 mg tablet Take 1 tablet by mouth daily at bedtime. Taking Yes SUMAtriptan (IMITREX) 25 mg tablet Take 1 tablet (25 mg) by mouth as needed for migraine headache (see administration instructions) (at onset of headache. May repeat after 2 hours.). May repeat dose after 2 hours if needed. Maximum daily dose is 200 mg per day. Taking Yes dulaglutide (TRULICITY) 3 mg/0.5 mL pen injector Inject 3 mg subcutaneously one time a week for 28 days. Taking Yes predniSONE (DELTASONE) 10 mg tablet Dispense 25 tablets of Prednisone 10 mg for a 13 day course of therapy. Please take as directed: 1 tablet every 8 hours for the first 4 days, followed by 1 tablet every 12 hours for the next 4 days, followed by 1 tablet daily for the final 5 days. Taking Yes omeprazole (PRILOSEC) 40 mg capsule Take 1 capsule by mouth once daily. Taking Yes Naproxen Sodium 550 mg tablet Take 1 tablet by mouth two times a day with meals. Taking Yes albuterol HFA (PROVENTIL HFA, VENTOLIN HFA) 90 mcg/actuation inhaler Inhale 2 Puffs as instructed every 6 hours as needed. Taking Yes atenolol (TENORMIN) 25 mg tablet Take 0.5 tablets by mouth once daily as needed. For HR > 100 Taking Yes No medication comments found. ALLERGIES No Known Allergies Objective PHYSICAL EXAM: General: alert and oriented and healthy appearance. Pertinent negatives noted - not distressed. Skin: normal color, no rash or lesions. HEENT: pupils equal round. Cardiovascular: regular rate and rhythm, normal S1 and S2, no rub, murmurs, or gallop. Pulse characterized as regular. Respiratory: normal breath sounds, no wheezes or crackles. No chest wall deformity or tenderness. Abdomen: bowel sounds present. Extremities: Positive for edema (non pitting edema noted to RLE). Neurological: normal cognition and motor skills. Gait normal. No weakness or sensory deficit. PAIN ASSESSMENT: Pain Pain Level: 4 VITALS: BP 121/82 Pulse 80 Temp 98.2 Resp 16 Ht 5' 8 (1.73m) Wt 241 lb (109.3kg) SpO2 96% BMI 36.65 kg/(m^2). Diagnostic tests reviewed for today's visit: Lab Value Units Date High Low HB 15.1 g/dL 02/19/2024 15.5 11.5 HCT 44.1 % 02/19/2024 46.0 36.0 WBC 6.12 k/uL 02/19/2024 11.00 3.70 PLT 202 k/uL 02/19/2024 400 150 NA 141 mmol/L 03/01/2024 144 136 K 4.0 mmol/L 03/01/2024 5.1 3.7 GLUC 98 mg/dL 03/01/2024 99 74 BUN 16 mg/dL 03/01/2024 21 7 CREAT 0.97 mg/dL 03/01/2024 0.96 0.58 PTSEC No results within date range. INR No results within date range. APTT No results within date range. ALT 26 U/L 03/01/2024 38 7 AST 22 U/L 03/01/2024 35 13 TBILI 0.5 mg/dL 03/01/2024 1.3 0.2 TSH 1.090 mIU/L 06/06/2024 4.200 0.270 Lab Value Units Date High Low HCGQT No results within date range. UHCG No results within date range. HCG, BODY* No results within date range. Lab Value Units Date High Low ABORHD No results within date range. ABSCREEN No results within date range. Hemoglobin A1C (%) Date Value 03/01/2024 5.3 No results found for this or any previous visit (from the past 8760 hour(s)). Recent Results (from the past 61113 hour(s)) ECHO Collection Time: 04/18/23 10:11 AM Impression CONCLUSIONS: - Exam indication: Palpitations - The left ventricle is normal in size. There is no left ventricular hypertrophy. Left ventricular systolic function is hyperdynamic. EF = 74 5% (2D biplane) Normal left ventricular diastolic function. - The right ventricle is normal in size. Right ventricular systolic function is normal. Tricuspid annular displacement is 2.6 cm. - There are no significant valvular abnormalities. - The patient has not had a prior CC echocardiographic exam for comparison. * * * Final * * * Patient denies blood thinners The Following Tests/Procedures Have Been Initiated: No labs ordered per surgeon in [facility] Assessment/Plan Diagnosis: Post-traumatic arthritis of right ankle [M19.171] Osteoarthritis of right ankle or foot [M19.071] PLAN Planned Procedure: Procedure(s) with comments: ARTHRODESIS ANKLE (Right) - Popliteal block ARTHRODESIS TIBIOFIBULAR JOINT PROXIMAL OR DISTAL (Right) I spent a total of 40 minutes on the date of the service which included preparing to see the patient, [id number] patient care, completing clinical documentation, obtaining and/or reviewing separately obtained history, performing a medically appropriate examination, and counseling and educating the patient/family/caregiver. Instructions Given to Patient: Instructions located in the after visit summary. Patient given verbal and written preop instructions and voices comprehension and compliance. SIGNATURE: Tracey Fishman APRN.CNP PATIENT NAME: Gayle Thompson DATE: August 08, 2024 TIME: 10:00 AM PAGER/CONTACT #: documented in this encounter [facility] 08-06-2024 Telephone encounter Note Spoke with patient confirmed surgery for 08/16/24 at 8 am arriving at 6 am NPO midnight Complete questions in mychart before day of surgery Doctor notified that consent will need updated day of surgery Lizzeth Weiss [employer] [facility] 08-06-2024 Miscellaneous Notes Spoke with patient confirmed surgery for 08/16/24 at 8 am arriving at 6 am NPO midnight Complete questions in mychart before day of surgery Doctor notified that consent will need updated day of surgery Lizzeth Weiss [place] [employer] documented in this encounter [facility] 07-24-2024 Telephone encounter Note Patient is okay with increasing to next dose. New order pended for review. Pharmacy verified [facility] 07-24-2024 Miscellaneous Notes Patient is okay with increasing to next dose. New order pended for review. Pharmacy verified documented in this encounter [facility] 07-23-2024 Telephone encounter Note Done Thanks Amarjit Storey DPM, FACFAS [facility] 07-23-2024 Miscellaneous Notes Done Thanks Amarjit Storey DPM FACFAS documented in this encounter [facility] 07-23-2024 Telephone encounter Note Needs EGD and mod barium swallow. Having ankle surgery end of month. She can go wherever she would like. Gayle Aragon PA-C [facility] Work Phone: 07-23-2024 Miscellaneous Notes Needs EGD and mod barium swallow. Having ankle surgery end of month. She can go wherever she would like. Gayle Aragon PA-C documented in this encounter [facility] 07-23-2024 Note HNO ID: [id number] Author: GAYLE ARAGON PA-C Service: ? Author Type: Physician Drain Layer Type: Progress Notes Filed: 07/23/2024 08:35 Note Text: GASTROENTEROLOGY NEW PATIENT VIRTUAL VISIT Patient consented to this visit being virtual and understands there are limitations inherent in this type of visit. I have communicated my name and active licensure. The patient's identity and physical location were verified at the time of this visit. Either the patient or their legal assistance representative has been informed of the risks and benefits of -- and alternatives to -- treatment through a remote evaluation and consents to proceed with the evaluation remotely. This is a virtual visit using [employer] Video Visit. It required patient-provider interaction for the medical decision making as documented below. CC: Lump sensation in throat and GERD HPI: Gayle L Thompson is a 33 year old female who presents for GERD and feeling of lump in throat. The patient notes it happens after eating- nothing specific kind of everything. Red sauce causes GERD. Nothing seems to help symptoms. It will just go away on its own. Tums sometimes help. This has all been occurring for a while. In last couple months it was worsened. Lump feeling for last couple weeks. Grandmother has hx of GERD. NSAID use: Does take Naproxen daily. Having ankle fusion at end of month. Unexplained weight loss: none. Take Blood thinners: none. Bowel Habits: going daily. Formed stools. No blood. Colonoscopy: never EGD: never Fam Hx: Colon cancer - positive- great grandmother - maternal passed from it. Current Outpatient Medications Medication Sig predniSONE (DELTASONE) 10 mg tablet Dispense 25 tablets of Prednisone 10 mg for a 13 day course of therapy. Please take as directed: 1 tablet every 8 hours for the first 4 days, followed by 1 tablet every 12 hours for the next 4 days, followed by 1 tablet daily for the final 5 days. dulaglutide (TRULICITY) 1.5 mg/0.5 mL pen injector Inject 1.5 mg subcutaneously one time a week. predniSONE (DELTASONE) 10 mg tablet Take one tablet by mouth every 8 hours.for 4 days. Take one tablet by mouth every 12 hours for 4 days. Take one tablet by mouth daily for 5 days. cholecalciferol, Vitamin D3, (VITAMIN D3) 1,250 mcg (50,000 unit) cap capsule Take 1 capsule by mouth one time a week. albuterol HFA (PROVENTIL HFA, VENTOLIN HFA) 90 mcg/actuation inhaler Inhale 2 Puffs as instructed every 6 hours as needed. topiramate (TOPAMAX) 25 mg tablet Take 1 tablet by mouth daily at bedtime for 7 days, THEN 2 tablets daily at bedtime. Patient should start on January 30, 2024. atenolol (TENORMIN) 25 mg tablet Take 0.5 tablets by mouth once daily as needed. For HR > 100 No current facility-administered medications for this visit. 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 Removal internal fixation, right tibia PROCEDURE Bilateral pins in big toes 2010 PT ED OBSTETRICS AND GYNECOLOGY 08/2023 ENDOMETRIAL ABLATION SALPINGECTOMY COMPLETE/PARTIAL UNI/BI SPX 2020 FAMILY HISTORY Problem Relation Age of Onset other (Circulation problems) Mother other (High Blood Pressure) Mother other (fibromyalgia) Mother Hypertension Mother Cancer Mother cervical cancer Allergies Mother Bee venom, seasonal Depression Mother Anxiety disorder Mother Migraines Mother Thyroid Mother ADD/ADHD Father Migraines Sister Anxiety disorder Sister Depression Sister Asthma Sister Obesity Sister Thyroid Sister other (Gallbladder) Sister Asthma Brother Alzheimer's Disease Brother Diabetes Brother Cancer Maternal Grandmother Arthritis Maternal Grandmother COPD Maternal Grandmother other (ibs) Maternal Grandfather Obesity Paternal Grandmother other (colitis) Paternal Grandmother other (GERD) Daughter ADD/ADHD Son Allergies Son several other (gerd) Son Colon Cancer Other Social History Tobacco Use Smoking status: Never Smokeless tobacco: Never Vaping Use Vaping status: Never Used Substance Use Topics Alcohol use: Yes Comment: occ. Drug use: Never ALLERGIES No Known Allergies GI SPECIFIC ROS: Difficulty swallowing / foods sticking in throat: Yes. Does feel at times she has a hard time initiating the swallow. Heartburn: Yes Hoarseness: Yes- will at times lose voice for no reason. Chronic co (more content not included)... [facility] 07-23-2024 History of Present illness Narrative GASTROENTEROLOGY NEW PATIENT VIRTUAL VISIT Patient consented to this visit being virtual and understands there are limitations inherent in this type of visit. I have communicated my name and active licensure. The patient's identity and physical location were verified at the time of this visit. Either the patient or their legal assistance representative has been informed of the risks and benefits of -- and alternatives to -- treatment through a remote evaluation and consents to proceed with the evaluation remotely. This is a virtual visit using MyChart Zoom Video Visit. It required patient-provider interaction for the medical decision making as documented below. CC: Lump sensation in throat and GERD HPI: Gayle Thompson is a 33 year old female who presents for GERD and feeling of lump in throat. The patient notes it happens after eating- nothing specific kind of everything. Red sauce causes GERD. Nothing seems to help symptoms. It will just go away on its own. Tums sometimes help. This has all been occurring for a while. In last couple months it was worsened. Lump feeling for last couple weeks. Grandmother has hx of GERD. NSAID use: Does take Naproxen daily. Having ankle fusion at end of month. Unexplained weight loss: none. Take Blood thinners: none. Bowel Habits: going daily. Formed stools. No blood. Colonoscopy: never EGD: never Fam Hx: Colon cancer - positive- great grandmother - maternal passed from it. Current Outpatient Medications Medication Sig predniSONE (DELTASONE) 10 mg tablet Dispense 25 tablets of Prednisone 10 mg for a 13 day course of therapy. Please take as directed: 1 tablet every 8 hours for the first 4 days, followed by 1 tablet every 12 hours for the next 4 days, followed by 1 tablet daily for the final 5 days. dulaglutide (TRULICITY) 1.5 mg/0.5 mL pen injector Inject 1.5 mg subcutaneously one time a week. predniSONE (DELTASONE) 10 mg tablet Take one tablet by mouth every 8 hours.for 4 days. Take one tablet by mouth every 12 hours for 4 days. Take one tablet by mouth daily for 5 days. cholecalciferol, Vitamin D3, (VITAMIN D3) 1,250 mcg (50,000 unit) cap capsule Take 1 capsule by mouth one time a week. albuterol HFA (PROVENTIL HFA, VENTOLIN HFA) 90 mcg/actuation inhaler Inhale 2 Puffs as instructed every 6 hours as needed. topiramate (TOPAMAX) 25 mg tablet Take 1 tablet by mouth daily at bedtime for 7 days, THEN 2 tablets daily at bedtime. Patient should start on January 30, 2024. atenolol (TENORMIN) 25 mg tablet Take 0.5 tablets by mouth once daily as needed. For HR > 100 No current facility-administered medications for this visit. 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 Removal internal fixation, right tibia PROCEDURE Bilateral pins in big toes 2010 PT ED OBSTETRICS & GYNECOLOGY 08/2023 ENDOMETRIAL ABLATION SALPINGECTOMY COMPLETE/PARTIAL UNI/BI SPX 2020 FAMILY HISTORY Problem Relation Age of Onset other (Circulation problems) Mother other (High Blood Pressure) Mother other (fibromyalgia) Mother Hypertension Mother Cancer Mother cervical cancer Allergies Mother Bee venom, seasonal Depression Mother Anxiety disorder Mother Migraines Mother Thyroid Mother ADD/ADHD Father Migraines Sister Anxiety disorder Sister Depression Sister Asthma Sister Obesity Sister Thyroid Sister other (Gallbladder) Sister Asthma Brother Alzheimer's Disease Brother Diabetes Brother Cancer Maternal Grandmother Arthritis Maternal Grandmother COPD Maternal Grandmother other (ibs) Maternal Grandfather Obesity Paternal Grandmother other (colitis) Paternal Grandmother other (GERD) Daughter ADD/ADHD Son Allergies Son several other (gerd) Son Colon Cancer Other Social History Tobacco Use Smoking status: Never Smokeless tobacco: Never Vaping Use Vaping status: Never Used Substance Use Topics Alcohol use: Yes Comment: occ. Drug use: Never ALLERGIES No Known Allergies GI SPECIFIC ROS: Difficulty swallowing / foods sticking in throat: Yes. Does feel at times she has a hard time initiating the swallow. Heartburn: Yes Hoarseness: Yes- will at times lose voice for no reason. Chronic cough: Yes- does have asthma and this sometimes causes coughing. Regurgitation: Yes Chest pain: Yes- when reflux is really bad. Filling up quickly at meals: Yes- gets full quickly. Loss of appetite: Yes- is on Trulicity but states prior she could forget to eat. Nausea: Yes- sometimes. Not too often. Usually with eating too much. Vomiting: No Abdominal pain: No Recent change in bowel movements: No Bloody or black, bowel movements: No Constipation: No Diarrhea: No Loss of control of bowel movements: No PHYSICAL EXAMINATION: No physical exam was performed due to this visit being performed virtually to decrease exposure to Covid 19. Patient was awake, alert, oriented, was able to speak clearly and answer questions. Patient did not seem to be in any distress. Patient appeared comfortable and was sitting and moving around comfortably. ASSESSMENT AND PLAN: Impression: This is a 33 year old female who presents via MyChart for consult. Has been having GERD and lump sensation in throat. Also reports having difficultly with initiating swallows and can choke. Will proceed with EGD and modified barium swallow. Also, started on omeprazole 40 mg 1 time daily. 30 minutes prior to breakfast. We discussed the procedure, instructions, and patient agrees to proceed. The patient verbalized understanding and agreed with the plan. They stated that they had no further questions. ASSESSMENT/PLAN: 1. Sensation of lump in throat - ICD9: 784.99, ICD10: R09.A2 (primary diagnosis) - EGD DIAGNOSTIC 2. Gastroesophageal reflux disease, unspecified whether esophagitis present - ICD9: 530.81, ICD10: K21.9 - EGD DIAGNOSTIC - OMEPRAZOLE 40 MG CAPSULE,DELAYED RELEASE 3. Heartburn - ICD9: 787.1, ICD10: R12 - EGD DIAGNOSTIC 4. Hoarseness - ICD9: 784.42, ICD10: R49.0 - EGD DIAGNOSTIC 5. Early satiety - ICD9: 780.94, ICD10: R68.81 - EGD DIAGNOSTIC 6. Loss of appetite - ICD9: 783.0, ICD10: R63.0 - EGD DIAGNOSTIC 7. Choking, initial encounter - ICD9: 933.1, ICD10: T17.308A - XR MODIFIED BARIUM SWALLOW W SPEECH THERAPY 8. Chronic cough - ICD9: 786.2, ICD10: R05.3 - XR MODIFIED BARIUM SWALLOW W SPEECH THERAPY Gayle Aragon PA-C I spent a total of 30 minutes on the date of the service which included preparing to see the patient, completing clinical documentation, counseling and educating the patient/family/caregiver, and ordering medications, tests, or procedures. documented in this encounter [facility] 07-23-2024 Telephone encounter Note Done Thanks Amarjit Storey DPM, FACFAS [facility] 07-23-2024 Miscellaneous Notes Done Thanks Amarjit Storey DPM, FACFAS documented in this encounter [facility] 07-01-2024 Telephone encounter Note Done Thanks Amarjit Storey DPM, FACFAS [facility] 07-01-2024 Miscellaneous Notes Done Thanks Amarjit Storey DPM, FACFAS documented in this encounter [facility] 06-24-2024 Telephone encounter Note Forwarding to provider for further consideration. [facility] 06-24-2024 Miscellaneous Notes Forwarding to provider for further consideration. documented in this encounter [facility] 06-05-2024 Telephone encounter Note Pt. Update 06.05.24- gastro call left message Note: E66.01 F43.10 I47.10 Z68.35 Patient notes feels lump when swallowing and GERD [facility] 06-05-2024 Miscellaneous Notes Pt. Update 06.05.24 gastro call left message Note: E66.01 F43.10 I47.10 Z68.35 Patient notes feels lump when swallowing and GERD documented in this encounter [facility] 06-05-2024 Telephone encounter Note Done Thanks Amarjit Storey DPM, FACFAS [facility] 06-05-2024 Telephone encounter Note Done Thanks Amarjit Storey DPM, FACFAS [facility] 06-05-2024 Miscellaneous Notes Done Thanks Amarjit Storey DPM, DOMINGOFAS documented in this encounter [facility] 06-05-2024 Miscellaneous Notes Done Thanks Amarjit Storey DPM, FACFAS documented in this encounter [facility] 06-04-2024 Nurse Note Neck: 15.5 inches Waist: 43 inches Body Type: Standard Gender: female Age: 33 Height: 5' 8 Clothes Weight: 2 lb Weight: 238.6 lb Body Fat %: 38.5% Body Fat Mass: 91.8 lb Fat-Free Mass FFM: 146.8 lb Muscle Mass: 139.4 lb Muscle %: 58.4% Total Body Water (TBW): 92.2 lb Total Body Water (TBW) %: 38.6% Bone Mass: 7.4 lb Basal Metabolic Rate (BMR): 8569 kJ / 2048 kcal Metabolic Age: 48 Visceral Fat Ratin Body Mass Index (BMI): 36.3 [place] Body Weight: 144.6 lb Degree of Obesity: 65.0% [facility] 06-04-2024 Nurse Note Neck: 15.5 inches Waist: 43 inches Body Type: Standard Gender: female Age: 33 Height: 5' 8 Clothes Weight: 2 lb Weight: 238.6 lb Body Fat %: 38.5% Body Fat Mass: 91.8 lb Fat-Free Mass FFM: 146.8 lb Muscle Mass: 139.4 lb Muscle %: 58.4% Total Body Water (TBW): 92.2 lb Total Body Water (TBW) %: 38.6% Bone Mass: 7.4 lb Basal Metabolic Rate (BMR): 8569 kJ / 2048 kcal Metabolic Age: 48 Visceral Fat Ratin Body Mass Index (BMI): 36.3 [place] Body Weight: 144.6 lb Degree of Obesity: 65.0% documented in this encounter [facility] 06-04-2024 Instructions Lyle Sykes APRN.[facility] - 06/04/2024 10:43 AM EDT Dear Ms. Thompson: It was a pleasure to care for your today and begin your weight loss journey; here are today's highlights we discussed: Nutrition: Begin consistent meals and mealtimes. Example: 7 am - b, Lunch 12, snack 3:30 and dinner 7 pm Avoid processed foods- fast foods, processed foods Begin low-carb low sugar nutrition 80-100 grams daily Whole grains, brown rice, quiona, cauliflower rice Do want vegetables 1/2 plate Do want fruits, berries, apples, pears, grapes Banana 1/2 twice week Protein 60-90 g daily villar longer Water 60 to 80 ounces daily Intermittent fasting-you want 3 hours between meals and you want to avoid eating after 7:30 PM Examples of foods: Protein replacement shakes there are various brands including Premier, Aldi, Crzyfish life, Each she has approximately 30 g of protein, 1 to 2 g of sugar and 4 to 7 g of carbs Plant based orgain or owyn Other examples for breakfast include 2 eggs any style 2 strips of lerner or 2 sausage links, the meat can be either turkey based or chicken. Lunch consider a salad with a tuna packet and or hard-boiled eggs You can also do turkey with a low-carb wrap Dinner make sure you are having protein and vegetables If fresh fruits and vegetables are not available a frozen is a great choice. Avoid canned because many of the nutrients are washed out and it contains sodium.- Consider meal prepping you want to be able to grab and go Avoid soda pop it does not hydrate the body and decrease caffeine. Activity: Chair exercises Chair yoga Swimming Light arm weights Ankle brace Increase your activity, increase cardio walking 10 to 15 minutes with a goal of 30 minutes 3 times a week Consider adding some light arm weights while you are watching your favorite show Water aerobics is also greatly decreases gravity on the joints Medications: Goals: consistency with meals and meal times; more water, decrease coffee , tea, soda, increase fruits and veggies, food journal F[facility], [facility]icity 0.75 mg weekly injection DULAGLUTIDE (Trulicity) - The medication comes in a once weekly, single-dose pen. - The most common adverse reactions reported in >=5% of Trulicity-treated patients in trials were nausea, diarrhea, vomiting, abdominal pain, decreased appetite, dyspepsia, and fatigue.The side effects are usually transient in nature. Please reach out for assistance in managing these symptoms if they persist and are bothersome. Side effects typically occur 1-3 days after the injection, when starting the medication, and with dose increases. With this in mind consider timing the injection like on a Monday night, so if you have side effects they will occur on the weekend versus while you are at work. -- We should have further discussions about taking this medication if you have a history of a pancreatitis, a disease called MEN2, or you or a family member has had medullary thyroid cancer. -- please inform me immediately if you are or plan to become . -- Although rare, there is an increased risk for inflammation of the pancreas (pancreatitis), gallbladder problems (including gallstones), low blood sugar (typically when combined with a medication called a sulfonurea), acute kidney injury (bwith nausea/vomiting and resulting dehydration), diabetic retinopathy (damage to the eye's retina), increased heart rate, and suicidal behavior or thinking. -- Please reach out if in-person pen training is needed. -- Keep medication refrigerated. It is good for 2 weeks out of the refrigerator as long as it had not been in high temperatures or direct sunlight. Instructions for Use Trulicity Patient Education How to use the pen: What is Trulicity & Easy To Use Pen Trulicity (dulaglutide) Full medication guide: Trulicity What Is Trulicity? Trulicity is a brand-name prescription drug that belongs to the drug class glucagon-like peptide-1 (GLP-1) agonists. Trulicity is available as a liquid solution self-injectable medication. It is a pre-filled, disposable, single-use injection pen. Can Trulicity Be Used for Weight Loss? While Trulicity is not a weight loss drug, Similar drugs in the same class of medication called GLP1's have recently been approved for weight loss by the FDA. These drugs are named Wegovy and Saxenda. The medication will be delivered as a once-weekly shot, in combination with diet and exercise. How Does Trulicity for Weight Loss Work? Trulicity is in a drug class called GLP-1 agonists that are used to control blood sugar, and can be taken to assist in weight loss. This drug works by - Slowing down how fast your stomach empties food - Blocking hormones that cause the liver to release sugar - Together, these combined actions cause the feeling of hunger to decrease, which leads to eating less, and finally, weight loss. How Long Does It Take for Trulicity to Work for Weight Loss? Results vary from person to person with Ozempic. Some people may have a quick initial weight drop; for others, it may take more time. Trulicity has been shown to help people lose weight in a safe, long-term, and healthy way. A [facility] doctor will help you with dosages of Trulicity for weight loss and might recommend slowly increasing dosage over time to maximize weight loss. The speed at which you lose weight is largely influenced by the amount of lifestyle changes you are able to make: there is no magic weight loss drug on the market. It s important to remember that weight loss takes time, and you ll have the best results if you use Trulicity in combination with exercise and a healthy diet. Trulicity for Weight Loss Dulaglutide: Patient drug information Access [employer] for additional drug information, tools, and databases. Copyright 4970-0619 [employer] All rights reserved. (For additional information see Dulaglutide: Drug information) You must carefully read the Consumer Information Use and Disclaimer below in order to understand and correctly use this information. Brand Names: [place] Trulicity Brand Names: [place] Trulicity Warning Drugs like this one have been shown to cause thyroid cancer in some animals. It is not known if this drug may cause thyroid cancer in humans. Call your doctor right away if you have a neck mass, trouble breathing, trouble swallowing, or hoarseness that will not go away. Do not use this drug if you have a health problem called Multiple Endocrine Neoplasia syndrome type 2 (MEN 2), or if you or a family member have had thyroid cancer. What is this drug used for? It is used to lower blood sugar in patients with high blood sugar (diabetes). It is used to lower the chance of heart attack, stroke, and in some people. What do I need to tell my doctor BEFORE I take this drug? If you are allergic to this drug; any part of this drug; or any other drugs, foods, or substances. Tell your doctor about the allergy and what signs you had. If you have any of these health problems: Type 1 diabetes or stomach or bowel problems. If you have ever had pancreatitis. If the patient is a child. Do not give this drug to a child. This is not a list of all drugs or health problems that interact with this drug. Tell your doctor and pharmacist about all of your drugs (prescription or OTC, natural products, vitamins) and health problems. You must check to make sure that it is safe for you to take this drug with all of your drugs and health problems. Do not start, stop, or change the dose of any drug without checking with your doctor. What are some things I need to know or do while I take this drug? Tell all of your health care providers that you take this drug. This includes your doctors, nurses, pharmacists, and dentists. Follow the diet and workout plan that your doctor told you about. Wear disease medical alert ID (identification). Check your blood sugar as you have been told by your doctor. Have blood work checked as you have been told by the doctor. Talk with the doctor. Do not drive if your blood sugar has been low. There is a greater chance of you having a crash. It may be harder to control blood sugar during times of stress such as fever, infection, injury, or surgery. A change in physical activity, exercise, or diet may also affect blood sugar. Kidney problems have happened with drugs like this one. Sometimes, kidney problems have needed to be treated in the hospital. Dialysis has also been needed. Talk with your doctor. Tell your doctor if you have upset stomach, throwing up, diarrhea, or too much sweating. Losing too much fluid may raise your chance of kidney problems. If you are dehydrated, talk with your doctor. This drug may prevent other drugs taken by mouth from getting into the body. If you take other drugs by mouth, you may need to take them at some other time than this drug. Talk with your doctor. Do not share pen or cartridge devices with another person even if the needle has been changed. Sharing these devices may pass infections from one person to another. This includes infections you may not know you have. Tell your doctor if you are , plan on getting , or are breast-feeding. You will need to talk about the benefits and risks to you and the baby. What are some side effects that I need to call my doctor about right away? WARNING/CAUTION: Even though it may be rare, some people may have very bad and sometimes deadly side effects when taking a drug. Tell your doctor or get medical help right away if you have any of the following signs or symptoms that may be related to a very bad side effect: Signs of an allergic reaction, like rash; hives; itching; red, swollen, blistered, or peeling skin with or without fever; wheezing; tightness in the chest or throat; trouble breathing, swallowing, or talking; unusual hoarseness; or swelling of the mouth, face, lips, tongue, or throat. Signs of a pancreas problem (pancreatitis) like very bad stomach pain, very bad back pain, or very bad upset stomach or throwing up. Signs of kidney problems like unable to pass urine, change in how much urine is passed, blood in the urine, or a big weight gain. Change in eyesight. Low blood sugar can happen. The chance may be raised when this drug is used with other drugs for diabetes. Signs may be dizziness, headache, feeling sleepy or weak, shaking, fast heartbeat, confusion, hunger, or sweating. Call your doctor right away if you have any of these signs. Follow what you have been told to do for low blood sugar. This may include taking glucose tablets, liquid glucose, or some fruit juices. What are some other side effects of this drug? All drugs may cause side effects. However, many people have no side effects or only have minor side effects. Call your doctor or get medical help if any of these side effects or any other side effects bother you or do not go away: Not hungry. Feeling tired or weak. It is common to have diarrhea, upset stomach, throwing up, or stomach pain with this drug. Call your doctor if any of these side effects get very bad, bother you, or do not go away. These are not all of the side effects that may occur. If you have questions about side effects, call your doctor. Call your doctor for medical advice about side effects. You may report side effects to your national health agency. How is this drug best taken? Use this drug as ordered by your doctor. Read all information given to you. Follow all instructions closely. It is given as a shot into the fatty part of the skin on the top of the thigh, belly area, or upper arm. If you will be giving yourself the shot, your doctor or nurse will teach you how to give the shot. Be sure you know how to use this drug. Read the instructions for use that come with this drug. If there are no instructions for use or you have any questions about how to use this drug, talk with the doctor or pharmacist. Take with or without food. Drink lots of noncaffeine liquids unless told to drink less liquid by your doctor. Take the same day each week. Do not use if the solution is cloudy, leaking, or has particles. Do not use if solution changes color. Wash your hands before and after use. Move site where you give the shot each time. If you are also using insulin, you may inject this drug and the insulin in the same area of the body but not right next to each other. Do not mix this drug in the same syringe with insulin. Keep taking this drug as you have been told by your doctor or other health care provider, even if you feel well. Throw away needles in a needle/sharp disposal box. Do not reuse needles or other items. When the box is full, follow all local rules for getting rid of it. Talk with a doctor or pharmacist if you have any questions. What do I do if I miss a dose? Take a missed dose as soon as you think about it. If it is less than 3 days (72 hours) until your next dose, skip the missed dose. Take your next dose on your normal day. Do not take 2 doses at the same time or extra doses. How do I store and/or throw out this drug? Store in a refrigerator. Do not freeze. Do not use if it has been frozen. If needed, you may store at room temperature for up to 14 days. Write down the date you take this drug out of the refrigerator. If stored at room temperature and not used within 14 days, throw this drug away. Store in the original container to protect from light. Protect from heat. Keep all drugs in a safe place. Keep all drugs out of the reach of children and pets. Throw away unused or drugs. Do not flush down a toilet or pour down a drain unless you are told to do so. Check with your pharmacist if you have questions about the best way to throw out drugs. There may be drug take-back programs in your area. General drug facts If your symptoms or health problems do not get better or if they become worse, call your doctor. Do not share your drugs with others and do not take anyone else's drugs. Some drugs may have another patient information leaflet. If you have any questions about this drug, please talk with your doctor, nurse, pharmacist, or other health care provider. If you think there has been an overdose, call your poison control center or get medical care right away. Be ready to tell or show what was taken, how much, and when it happened. Last Reviewed [id number] Consumer Information Use and Disclaimer This generalized information is a limited summary of diagnosis, treatment, and/or medication information. It is not meant to be comprehensive and should be used as a tool to help the user understand and/or assess potential diagnostic and treatment options. It does NOT include all information about conditions, treatments, medications, side effects, or risks that may apply to a specific patient. It is not intended to be medical advice or a substitute for the medical advice, diagnosis, or treatment of a health care provider based on the health care provider's examination and assessment of a patient's specific and unique circumstances. Patients must speak with a health care provider for complete information about their health, medical questions, and treatment options, including any risks or benefits regarding use of medications. This information does not endorse any treatments or medications as safe, effective, or approved for treating a specific patient. [employer]. and its affiliates disclaim any warranty or liability relating to this information or the use thereof. The use of this information is governed by the Terms of Use, available at https://www.[employer].Cardiorobotics/en /solutions/lexicomp/about/destiny Education included discussing thyroid C-cell tumor risk including Medullary Thyroid Carcinoma (MTC).Though studies have shown increased risk of medullary cell cancers only in rats. Patient denies family history of MTC and Multiple Endocrine Neoplasia Syndrome type 2 (MEN 2). I discussed that this medication is associated with acute pancreatitis, including fatal and non-fatal hemorrhagic or necrotizing pancreatitis. Pt does not have a hx of pancreatitis. Educated patient to monitor for signs such as persistent severe abdominal pain, sometimes radiating to the back, with or without vomiting. If this occurs, stop medication immediately and go to ER. The most common adverse reactions include nausea, vomiting, diarrhea, constipation and injection site erythema. These may dissipate over time. Helpful tip GLP-1 RA increases beta cell proliferation. documented in this encounter [facility] 06-04-2024 History of Present illness Narrative BMI Obesity Medicine Consult 06/04/24 Consultation requested by Noelle Blanc APRN* for an opinion regarding Obesity. My final recommendations will be communicated back to the requesting physician by way of shared Medical record or letter to requesting physician via [place] mail. Patient HPI summary: Gayle Thompson is a 33 year old female with obesity who presents to the [facility] [place] for an initial evaluation of her obesity and past medical history of knee pain toe pain concussion without loss of consciousness, daytime sleepiness, palpitations, paroxysmal supraventricular tachycardia, sinus bradycardia, cellulitis, of the face, urticaria, cystic acne, hyperhidrosis, hammertoes, plantar fasciitis's of the right foot, PTSD, dizziness, obesity, and is interested in behavioral , pharmacological, and non-surgical weight loss approaches. Primary reason for wanting obesity treatment : struggle with weight cannot lose weight at all; Overall goal: 175 lbs lose approximately 55-65 lbs Weight History: She reports a strong family history of obesity mother side and sister had sleeve; and adult onset weight gain. 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 Weight Graph: (please see graph scanned in chart) Medications: Topamax 25 mg tablet- migraines March 2024 Diet: Food preparation and grocery shopping: patient and spouse [employer] Quality of diet: 24hr recall suggests combination both healthy and unhealthy diet. Characterization of diet:Structured, Unstructured, excessive cravings, and skip meals. 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 and currently back to a daytime rotation B: 7-9 am peanut butter toast, poptarts, breakfast sandwich egg mcmuffin once a week; cereal on weekends special k or honey nut cheerio L: 11-1 pm -subway, chicken teriyaki , left overs, burger, D:5-7 pm - taco salad, spaghetti, burgers, grilled dogs, fiesta chicken , pork chops, vegetables corn green beans carrots, broccoli, Snacks:evening - crackers, cheese, apples, summer sausage deer sausage Beverages: Water: 40 ounces Soda: 2-3 20 ounces coke zero; Coffee/tea: coffee - cream vanilla, sugar zeny cymro vanilla medium 20 ounces; Tea: iced - sweet mc donalds 1/2 unsweetened; Alcohol: rarely Diet History: Past weight loss attempts? self-directed. Exercise: Regular exercise: Yes running 2 days week; bicycle stationery, rowing machine Strength/resistance exercise:Yes Barriers to regular exercise? Decreased rom in ankle right, work and time constraints Work-related activity:Active. ?Sleep: Duration: 6 hours. DAVID NO ; CPAP NO tested last year at [place] Quality:fair, Numerous awakenings:Sleep-wake cycle disruption:No ??Stress: Some, Cause:Work, Financial, and Personal Obesity Related Comorbidities: Prior Weight Loss Surgery:No ACTIVE PROBLEM LIST Unspecified Acquired Deformity of Toe Hammer Toe Toe Pain Right Knee Pain Plantar Fasciitis of Right Foot Urticaria Class 2 Obesity Without Serious Comorbidity With Body Mass Index (Bmi) of 36.0 to 36.9 in Adult Cystic Acne Hyperhidrosis Anxiety Difficulty Concentrating Closed Fracture of Distal End of Right Fibula Concussion Without Loss of Consciousness Ptsd (Post-Traumatic Stress Disorder) Palpitations Dizziness Daytime Sleepiness Psvt (Paroxysmal Supraventricular Tachycardia) (Hcc) Sinus Bradycardia Pre-Op Examination Unable to Lose Weight Cellulitis Facial Cellulitis Abscess of Face PAST SURGICAL HISTORY Procedure Laterality Date ANKLE SURGERY HX Right 07/27/2021 APPLICATION UNIPLANE EXTERNAL FIXATION SYSTEM Right 07/18/2021 CLTX FX W8 BRG ARTCLR PRTN DSTL TIB W/SKEL TRACJ Right 07/18/2021 CORRECTION HAMMERTOE Right 2010, 2013 EXTRACTION ERUPTED TOOTH 2016 wisdom teeth PAST SURGICAL HISTORY OF Right 10/23/2023 1. Removal internal fixation, right tibia PROCEDURE Bilateral pins in big toes 2010 PT ED OBSTETRICS & GYNECOLOGY 08/2023 ENDOMETRIAL ABLATION SALPINGECTOMY COMPLETE/PARTIAL UNI/BI SPX 2020 Obesity ROS/ FHx GEN: Fatigue:Yes CV: h/o palpitations/cardiac arrhythmia, CP:Yes SVT and sinus bradycardia PULM: Asthma:Yes GI: GERD:No; Gallstones: No; Fatty liver disease:No; H/o hernia:No Pancreatitis: no MSK: Joint Pain:Yes right ankle : Nephrolithiasis:No; Stress incontinence:No Symptoms of PCOS(women):No Steroids for Chronic Problems NEURO: Migraines/CERVANTES:Yes; H/o seizures: No Stroke or TIA: no Glaucoma:No; Cataracts No Symptoms of pseudotumor cerebri:No Cardiac: Yes, Pulmonary: Yes, Vascular: Yes, and Neuro: Yes Psychiatric history: PTSD, anxiety Substance use disorder: Medical marijuana: denies Recreational marijuana: denies Tobacco: denies Vaping: denies Family History Problem Relation Age of Onset other (Circulation problems) Mother other (High Blood Pressure) Mother other (fibromyalgia) Mother Hypertension Mother Cancer Mother cervical cancer Allergies Mother Bee venom, seasonal Depression Mother Anxiety disorder Mother Migraines Mother Thyroid Mother ADD/ADHD Father Migraines Sister Anxiety disorder Sister Depression Sister Asthma Sister Obesity Sister Thyroid Sister other (Gallbladder) Sister Asthma Brother Alzheimer's Disease Brother Diabetes Brother Cancer Maternal Grandmother Arthritis Maternal Grandmother COPD Maternal Grandmother other (ibs) Maternal Grandfather Obesity Paternal Grandmother other (colitis) Paternal Grandmother other (GERD) Daughter ADD/ADHD Son Allergies Son several other (gerd) Son Colon Cancer Other PREV: PAP UTD, Mammogram UTD and Colonoscopy n/a Social History Social History Tobacco Use Smoking status: Never Smokeless tobacco: Never Vaping Use Vaping status: Never Used Substance Use Topics Alcohol use: Yes Comment: occ. 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 Mixed central and gluteofemoral adiposity. Waist circumference measured. 43 No acanthosis, no lipoma, no pallor. No supraclavicular adiposity. No dorsal adiposity. PERRL. Tongue moist, pink. No OP crowding. Good dental hygiene RRR nl. s1s2 CTAB Abdomen Soft Protuberant ; + striae. NT/ND. + peripheral edema- right ankle Cap refill 1-2 seconds Results: reviewed with the patient Appointment on 04/04/2024 Component Date Value Ref Range Status Vitamin D 25 Hydroxy 04/04/2024 24.7 (L) >=30.0 ng/mL Final Impression: Gayle Thompson is a 33 year old female with Class II obesity (Body mass index is 36.28 kg/m .) who has adult onset obesity with gradual weight gain despite several weight loss attempts. The causes of her obesity are multifactorial, biological, psychological and social and environmental. Specific factors include a genetic component related to a strong family of obesity, exposure to weight gain promoting medication(s) , increased consumption of high calorie/process foods, irregular eating patterns , suboptimal physical activity, poor sleep quality, and post weight retention. She has several weight-related medical comorbidities which increase her cardiovascular mortality risk. There are additional metabolic obesity complications including not at this time. No hx of obstructive sleep apnea tested last year.. Other medical conditions as above. Regarding her lifestyle, as above, she has a few behavioral contributors ; her physical activity is suboptimal. Overall, it is clear that her quality of life is moderately compromised by her weight. It is likely a combination of weight loss therapies will be needed. She appears motivated today. Assessment and plan: Generic contrave, metformin, estefany reyna direct zepbound ASSESSMENT/PLAN: 1. Class 2 obesity without serious comorbidity with body mass index (BMI) of 36.0 to 36.9 in adult, unspecified obesity type - ICD9: 278.00, V85.36, ICD10: E66.812, Z68.36 (primary diagnosis) Weight increasing - Behavioral and pharmacological intervention Counseled patient to begin more consistency with meals and meal times; patient currently back on a regular dayshift routine. Encourage patient to begin more low-carb low sugar foods and increase fruits vegetables and whole grains. We discussed techniques to manage maladaptive eating behaviors and to increase her protein at least 60 to 90 g daily to stay villar longer and increase her water 60 to 80 ounces daily to stay well-hydrated. Discussed with patient to decrease caffeinated products coffee drinks and teas as well as we reviewed protein replacement shakes. Discussed with patient alternate activities for increasing cardio to increase metabolism. Patient is on her feet at work and she is active however we discussed weight plateau and set point. I have also reviewed the possibility using weight loss medications in effort to reduce patient's appetite. I reviewed the different therapeutic options available including phentermine, Qsymia, Contrave, Saxenda, Trulicity, Ozempic, Mounjaro, Wegovy, Zepbound, topiramate, metformin, bupropion and Effexor which all been associated weight loss. At this time we agreed that the patient's best option at this point to be: We will see if insurance will approve Trulicity 0.75 mg subcutaneous weekly injection Alternate plan- Generic contrave, metformin, estefany reyna direct zepbound discussed with patient that the Estefany Reyna direct is for the first 2 doses only. - INSULIN ASSAY BLOOD - THYROID STIMULATING HORMONE - CONSULT TO GASTROENTEROLOGY - CORTISOL, SERUM Begin with nutrition and increasing activity as well as ordering lab to further stratify risks and overall health status. Discussed with patient setting 3 small goals that are SMART (Specific, Measurable, Achievable, Relevant, and Time-Bound), to be evaluated at her next visit. I reviewed with the patient the pros and cons of taking these medications. In addition discussed with patient to have at least 60 g of protein daily and at least 60-80 ounces of water daily. We also discussed monitoring blood pressure and reporting anything over 140/90 or greater. Patient verbalized understanding all questions and concerns addressed. 2. PTSD (post-traumatic stress disorder) - ICD9: 309.81, ICD10: F43.10 Continue current medications and follow-up with behavioral health provider - INSULIN ASSAY BLOOD - THYROID STIMULATING HORMONE - CONSULT TO GASTROENTEROLOGY - CORTISOL, SERUM - DULAGLUTIDE 0.75 MG/0.5 ML SUBCUTANEOUS PEN INJECTOR 3. PSVT (paroxysmal supraventricular tachycardia) (HCC) - ICD9: 427.0, ICD10: I47.10 Continue follow-up with cardiology - INSULIN ASSAY BLOOD - THYROID STIMULATING HORMONE - CONSULT TO GASTROENTEROLOGY - CORTISOL, SERUM - DULAGLUTIDE 0.75 MG/0.5 ML SUBCUTANEOUS PEN INJECTOR 4. Dietary counseling and surveillance - ICD9: V65.3, ICD10: Z71.3 Reviewed principles of energy metabolism caloric intake and expenditure and rationale for treatment program. Also reinforced need for reduced calorie low-fat nutrition and increase physical activity. - INSULIN ASSAY BLOOD - THYROID STIMULATING HORMONE - CONSULT TO GASTROENTEROLOGY - CORTISOL, SERUM - DULAGLUTIDE 0.75 MG/0.5 ML SUBCUTANEOUS PEN INJECTOR 5. BMI 35.0-35.9,adult - ICD9: V85.35, ICD10: Z68.35 Weight increasing Oncological behavior intervention - INSULIN ASSAY BLOOD - THYROID STIMULATING HORMONE - CONSULT TO GASTROENTEROLOGY - CORTISOL, SERUM - DULAGLUTIDE 0.75 MG/0.5 ML SUBCUTANEOUS PEN INJECTOR 6. Sinus bradycardia - ICD9: 427.89, ICD10: R00.1 Continue follow-up with cardiology - DULAGLUTIDE 0.75 MG/0.5 ML SUBCUTANEOUS PEN INJECTOR 7. Metabolic syndrome - ICD9: 277.7, ICD10: E88.810 Continue low-carb low sugar foods and increasing activity - DULAGLUTIDE 0.75 MG/0.5 ML SUBCUTANEOUS PEN INJECTOR Lyle Sykes APRN.DIE DRAWING CHECKER Plan: -- Based on the severity and resistance of the obesity to more conservative weight loss approaches, I believe a combination of behavioral and pharmacological intervention is the best and most appropriate [facility] therapeutic option. -- We discussed several strategies to track food intake and increase mindfulness around eating. She was counseled on Food records, Meal replacements, Time restricted feeding, Intermittent fasting, Low carbohydrate diet, and Ketogenic diet -- Encouraged the patient to improve her physical activity. Although cardiovascular exercise is most beneficial for weight loss initially, we discussed healthy muscle from a combination of resistance training and cardiovascular exercise is the best intermediate designer plan. An overall goal of 200 minutes per week of exercise has been effective in weight loss and maintenance. -- follow-up visit for management of above interventions 5A's- Assess: I assessed behavioral health risk/factors affecting --- Asked about/assess behavioral health risk(s) and factors affecting choice of behavior change goals --- somewhat sedentry lifestyle ---?snacking ---Lack of exercise Advise: clear, specific, personalized behavior change advice. ---I gave very clear, specific, and personalized behavior change adviced, including information about personal health harms and benefits. Agree: Patient agrees with selected appropriate treatment goals and methods to change behavior Assist: Provided IBT w self-help, handouts, teaching skills and support Using behavior change techniques with self-help and Counseling in achieving Goals. Also discussed supplementing with adjunctive medical treatments when appropriate. Arrange: follow up scheduled, handouts given to patient. Lyle Sykes APRN, DNP I spent a total of 60 minutes on the date of the service which included preparing to see the patient, [id number] patient care, completing clinical documentation, obtaining and/or reviewing separately obtained history, performing a medically appropriate examination, counseling and educating the patient/family/caregiver, ordering medications, tests, or procedures, communicating with other HCPs (not separately reported), independently interpreting results (not separately reported), communicating results to the patient/family/caregiver, and care coordination (not separately reported). documented in this encounter [facility] 06-04-2024 Note HNO ID: [id number] Author: LYLE SYKES APRN.IRN Service: ? Author Type: Nurse Practitioner Type: Progress Notes Filed: 06/04/2024 12:18 Note Text: BMI Obesity Medicine Consult 06/04/24 Consultation requested by Noelle Blanc APRN* for an opinion regarding Obesity. My final recommendations will be communicated back to the requesting physician by way of shared Medical record or letter to requesting physician via US mail. Patient HPI summary: Gayle Thompson is a 33 year old female with obesity who presents to the [facility] for an initial evaluation of her obesity and past medical history of knee pain toe pain concussion without loss of consciousness, daytime sleepiness, palpitations, paroxysmal supraventricular tachycardia, sinus bradycardia, cellulitis, of the face, urticaria, cystic acne, hyperhidrosis, hammertoes, plantar fasciitis's of the right foot, PTSD, dizziness, obesity, and is interested in behavioral , pharmacological, and non-surgical weight loss approaches. Primary reason for wanting obesity treatment : struggle with weight cannot lose weight at all; Overall goal: 175 lbs lose approximately 55-65 lbs Weight History: She reports a strong family history of obesity mother side and sister had sleeve; and adult onset weight gain. 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 Weight Graph: (please see graph scanned in chart) Medications: Topamax 25 mg tablet- migraines March 2024 Diet: Food preparation and grocery shopping: patient and spouse [email or web address] Quality of diet: 24hr recall suggests combination both healthy and unhealthy diet. Characterization of diet:Structured, Unstructured, excessive cravings, and skip meals. 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 and currently back to a daytime rotation B: 7-9 am peanut butter toast, poptarts, breakfast sandwich egg mcmuffin once a week; cereal on weekends special k or honey nut cheerio L: 11-1 pm -subway, chicken teriyaki , left overs, burger, D:5-7 pm - taco salad, spaghetti, burgers, grilled dogs, fiesta chicken , pork chops, vegetables corn green beans carrots, broccoli, Snacks:evening - crackers, cheese, apples, summer sausage deer sausage Beverages: Water: 40 ounces Soda: 2-3 20 ounces coke zero; Coffee/tea: coffee - cream vanilla, sugar zeny cymro vanilla medium 20 ounces; Tea: iced - sweet mc donalds 1/2 unsweetened; Alcohol: rarely Diet History: Past weight loss attempts? self-directed. Exercise: Regular exercise: Yes running 2 days week; bicycle stationery, rowing machine Strength/resistance exercise:Yes Barriers to regular exercise? Decreased rom in ankle right, work and time constraints Work-related activity:Active. ?Sleep: Duration: 6 hours. DAVID NO ; CPAP NO tested last year at [place] Quality:fair, Numerous awakenings:Sleep-wake cycle disruption:No ??Stress: Some, Cause:Work, Financial, and Personal Obesity Related Comorbidities: Prior Weight Loss Surgery:No ACTIVE PROBLEM LIST Unspecified Acquired Deformity of Toe Hammer Toe Toe Pain Right Knee Pain Plantar Fasciitis of Right Foot Urticaria Class 2 Obesity Without Serious Comorbidity With Body Mass Index (Bmi) of 36.0 to 36.9 in Adult Cystic Acne Hyperhidrosis Anxiety Difficulty Concentrating Closed Fracture of Distal End of Right Fibula Concussion Without Loss of Consciousness Ptsd (Post-Traumatic Stress Disorder) Palpitations Dizziness Daytime Sleepiness Psvt (Paroxysmal Supraventricular Tachycardia) (Hcc) Sinus Bradycardia Pre-Op Examination Unable to Lose Weight Cellulitis Facial Cellulitis Abscess of Face PAST SURGICAL HISTORY Procedure Laterality Date ANKLE SURGERY HX Right 07/27/2021 APPLICATION UNIPLANE EXTERNAL FIXATION SYSTEM Right 07/18/2021 CLTX FX W8 BRG ARTCLR PRTN DSTL TIB W/SKEL TRACJ Right 07/18/2021 CORRECTION HAMMERTOE Right 2013 EXTRACTION ERUPTED TOOTH 2016 wisdom teeth PAST SURGICAL HISTORY OF Right 10/23/2023 1. Removal internal fixation, right tibia PROCEDURE Bilateral pins in big toes 2010 PT ED OBSTETRICS AND GYNECOLOGY 08/2023 ENDOMETRIAL ABLATION SALPINGECTOMY COMPLETE/PARTIAL UNI/BI SPX 2020 Obesity ROS/ FHx GEN: Fatigue:Yes CV: h/o palpitations/cardiac arrhythmia, CP:Yes SVT and sinus bradycardia PULM: Asthma:Yes GI: GERD:No; Gallstones: No; Fatty liver disease:No; H/o hernia:No Pancreatitis: no MSK: Joint Pain:Yes right ankle : Nephrolithiasis:No; Stress incontinence:No Symptoms of PCOS(women):No Steroids for Chronic Problems NEURO: Migraines/CERVANTES:Yes; H/o seizures: No Stroke or TIA: no Glaucoma:No (more content not included)... [facility] 05-06-2024 Telephone encounter Note Patient sent a my chart message about her prescription from Monday. I looked in the chart and I saw both Prednisone and the Vitamin D3 but it looks like the D3 was not dispatched the the pharmacy electronically. I called the pharmacy and spoke with Nito and they will get that filled for the patient. Re Grajeda [facility] 05-06-2024 Miscellaneous Notes Patient sent a my chart message about her prescription from Monday. I looked in the chart and I saw both Prednisone and the Vitamin D3 but it looks like the D3 was not dispatched the the pharmacy electronically. I called the pharmacy and spoke with Nito and they will get that filled for the patient. Re Grajeda documented in this encounter [facility] 05-02-2024 History of Present illness Narrative DOS: 10/23/2023 POD: 6 months 8 days Procedure: Removal internal fixation, right tibia Arthrotomy with synovectomy, right ankle Partial excision of bone, right tibia This 33 year old female presents for a post op visit. Patient states they are doing well. Pain is well controlled. Has been weightbearing as tolerated to the right lower extremity. Denies any current nausea, vomiting, fever, chills, shortness of breath, chest pain or calf pain. Denies any other pedal complaints PAST MEDICAL HISTORY No date: Acute right ankle pain No date: Allergies No date: Asthma Comment: as a kid No date: Delayed emergence from general anesthesia No date: Generalized anxiety disorder No date: Hammer toe No date: Migraines No date: Palpitations No date: Plantar fasciitis No date: PONV (postoperative nausea and vomiting) Current Outpatient Medications Medication Sig predniSONE (DELTASONE) 10 mg tablet Dispense 25 tablets of Prednisone 10 mg for a 13 day course of therapy. Please take as directed: 1 tablet every 8 hours for the first 4 days, followed by 1 tablet every 12 hours for the next 4 days, followed by 1 tablet daily for the final 5 days. Naproxen Sodium 550 mg tablet Take 1 tablet by mouth two times a day with meals. albuterol HFA (PROVENTIL HFA, VENTOLIN HFA) 90 mcg/actuation inhaler Inhale 2 Puffs as instructed every 6 hours as needed. topiramate (TOPAMAX) 25 mg tablet Take 1 tablet by mouth daily at bedtime for 7 days, THEN 2 tablets daily at bedtime. Patient should start on January 30, 2024. atenolol (TENORMIN) 25 mg tablet Take 0.5 tablets by mouth once daily as needed. For HR > 100 Current Facility-Administered Medications Medication Dose Route Frequency perflutren lipid microspheres 1.3 mL in NaCl (PF) 0.9% 10 mL injection (DEFINITY) INTRAVENOUS DIRECTED PRN sodium chloride 0.9 % (flush) 10 mL (BD POSIFLUSH) 10 mL INTRAVENOUS DIRECTED PRN ALLERGIES No Known Allergies Objective: Patient presents weightbearing as tolerated to right leg. Problem focus examination to the right lower extremity: Incision site is well coapted without evidence of dehiscence. Mild erythema and edema surrounding surgical site. No drainage. No lymphadenopathy. No lymphangitis. No surrounding cellulitis. No signs of infection. Patient has no pain to palpation of calf. The calf is soft, supple and nontender without evidence of DVT. Negative Charli's test. Satisfactory alignment is noted. Pedal pulses are palpable. Capillary refill time is less than three seconds to all digits. Sensations are intact to light touch. 05/02/24: right ankle radiographs (three views: AP/MO/lateral; weight-bearing) were performed and examined today. Personal radiographic evaluation: Stable post-operative appearance. Hardware in normal position without evidence of failure or loosening. Position maintained. No acute destructive changes. No gas in the soft tissues.Fibula out to length. No diastasis noted to medial or lateral ankle gutter. No over fractures or dislocations. Assessment: Satisfactory post-operative progress Plan: The patient was educated on clinical examination findings, postoperative prognosis and protocol. All questions were answered to patient's apparent satisfaction. - Patient to continue weightbearing as tolerated to the operative extremity. - Xray's reviewed with patient. - Discussed having an ankle fusion in the future when she is ready. Patient would like to schedule today. - Discussed giving cortisone injections. - Recommends topical CBD topical. - Activities as directed by symptoms. Follow up Beginning July. Scribe Attestation: By signing my name below, I, Mary Dean MA, attest that this documentation has been prepared under the direction and in the presence of Amarjit Storey DPM. Electronically Signed: Mary Dean MA, Scribe. May 02, 2024 11:45 AM. Clinician Attestation Statement: The information in this document, created by the paramedical aide for me, accurately reflects the services I personally performed and the decisions made by me. I have reviewed and approved this document for accuracy. Amarjit Storey DPM, FACFAS documented in this encounter [facility] 04-12-2024 Telephone encounter Note Done Thanks Amarjit Storey DPM, FACFAS [facility] 04-12-2024 Miscellaneous Notes Done Thanks Amarjit Storey DPM, FACFAS documented in this encounter [facility] 04-04-2024 Instructions Samuel Charlton DPM - 04/04/2024 2:22 PM EDT Obtain vitamin D lab work today Rest, ice and elevation You can apply Voltaren gel or CBD cream over the ankle, make sure it does not contain THC Continue taking Naproxen daily as needed for pain you can use knee scooter if too painful to bear weight on right foot documented in this encounter [facility] 04-04-2024 History of Present illness Narrative DOS: 10/23/2023 POD: 164 Procedure: Removal internal fixation, right tibia Arthrotomy with synovectomy, right ankle Partial excision of bone, right tibia Pertinent HPI from last visit: this 33 year old female presents for a post op visit. Patient states they were doing well with minimal pain however about 2 months ago pt started getting pain along the medial ankle that has been becoming progressively worse. She rates pain is 9/10 on an average day and is unrelieved with tylenol or ibuprofen. Denies any further injury to that side. Is concerned for a stress fracture due to her significant fracture history in multiple locations of the body. Denies any current nausea, vomiting, fever, chills, shortness of breath, chest pain or calf pain. Denies any other pedal complaints Interval HPI: Since last visit CT scan of right ankle was performed and she is here to go over the results. Denies interval trauma. States that her pain is unchanged since last visit. Denies other pedal complaints PAST MEDICAL HISTORY No date: Acute right ankle pain No date: Allergies No date: Asthma Comment: as a kid No date: Delayed emergence from general anesthesia No date: Generalized anxiety disorder No date: Hammer toe No date: Migraines No date: Palpitations No date: Plantar fasciitis No date: PONV (postoperative nausea and vomiting) Current Outpatient Medications Medication Sig predniSONE (DELTASONE) 10 mg tablet Dispense 25 tablets of Prednisone 10 mg for a 13 day course of therapy. Please take as directed: 1 tablet every 8 hours for the first 4 days, followed by 1 tablet every 12 hours for the next 4 days, followed by 1 tablet daily for the final 5 days. albuterol HFA (PROVENTIL HFA, VENTOLIN HFA) 90 mcg/actuation inhaler Inhale 2 Puffs as instructed every 6 hours as needed. atenolol (TENORMIN) 25 mg tablet Take 0.5 tablets by mouth once daily as needed. For HR > 100 topiramate (TOPAMAX) 25 mg tablet Take 1 tablet by mouth daily at bedtime for 7 days, THEN 2 tablets daily at bedtime. Patient should start on January 30, 2024. Current Facility-Administered Medications Medication Dose Route Frequency perflutren lipid microspheres 1.3 mL in NaCl (PF) 0.9% 10 mL injection (DEFINITY) INTRAVENOUS DIRECTED PRN sodium chloride 0.9 % (flush) 10 mL (BD POSIFLUSH) 10 mL INTRAVENOUS DIRECTED PRN ALLERGIES No Known Allergies Objective: Patient presents weightbearing as tolerated to right leg. Problem focus examination to the right lower extremity: Grossly unchanged since last exam Incision site is well coapted without evidence of dehiscence. No erythema and no edema surrounding surgical site. No drainage. No lymphadenopathy. No lymphangitis. No surrounding cellulitis. No signs of infection. Patient has no pain to palpation of calf. The calf is soft, supple and nontender without evidence of DVT. Negative Charli's test. Satisfactory alignment is noted. Full muscle strength, +5/5 in DF/PF/IN/EV. No pain with ankle joint ROM. No crepitus with ankle joint ROM. Limited ankle joint DF with osseous block however this is not painful. Pain to palpation of the medial tubercle of calcaneus and coursing along the posterior tibial tendon. No pain with resisted inversion or eversion. POP to lateral and medial malleoli. POP retromalleolar, medial malleolus. Most significant area of pain is direct lateral palpation of distal tibia, just proximal to the medial malleolus. Pedal pulses are palpable. Capillary refill time is less than three seconds to all digits. Sensations are intact to light touch. 3 WB views of L ankle from last visit Radiographs: Hardware intact without breakage or loosening. Triplane position is maintained. Significant joint space loss noted diffusely to the ankle joint. No soft tissue gas. Fibula out to length. No diastasis noted to medial or lateral ankle gutter. No over fractures or dislocations. Last CT Ankle - Impression Only CT ANKLE WO IVCON RIGHT Exam End: 04/02/2024 12:42 PM (Final result) Impression: IMPRESSION: Posttraumatic/postoperative changes distal tibia as described above with remaining intact posterior plate and screw fixation hardware. 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 Small tibiotalar effusion with punctate anterior intra-articular loose bodies.... Assessment: 33yof with history of pilon fracture of the right ankle status post ORIF and subsequent hardware removal back in October of this year now with worsening pain at right ankle. 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 All questions were answered to patient's apparent satisfaction. -CT findings discussed with patient -Discussed that given CT findings and her symptoms surgical intervention is warranted and she would benefit from tibiotalar arthrodesis whenever she is ready to move forward with surgery. Discussed risk benefits and alternatives of surgery. Answered all questions. Patient would like to move forward with surgery sometimes later this year. -Continue WBAT in regular shoe with lace up ankle brace. She can use the boot or knee scooter if pain is not tolerable - lab order placed for vitamin D. Will consider supplementation pending results - Continue use of Naproxen daily as needed for pain -Discussed use of OTC analgesia and voltaren gel as needed - RTC 4 weeks Samuel Charlton DPM, PGY-3 Total patient care time w/ pt was at least 45 minutes w/ at least 50% of the time spent reviewing the results of the recent imaging including (CT) counseling the pt on treatment options and coordinating their care. I personally saw and evaluated the patient. I reviewed the resident's note. I agree with the resident's assessment and plan unless otherwise noted. Amarjit Storey DPM, FACFAS REVIEW OF SYSTEMS: GENERAL: Well developed, well nourished. No acute distress PAIN: right ankle pain CARDIOVASCULAR: Negative for chest pain, leg swelling and palpations. MSK: Positive for joint swelling SKIN: Negative for lesions, rash, itching, metal sensitivity NEURO: Negative for seizure, trauma, numbness/tingling of extremities. ENDOCRINE: Negative for diabetic associated symptoms HEMATOLOGY: Negative for excessive bleeding, clots, bleeding disorders. documented in this encounter [facility] 04-02-2024 History of Present illness Narrative Radiology Service Progress Note PATIENT NAME: Gayle Thompson DATE OF SERVICE: April 02, 2024 TIME: 12:43 PM PATIENT IDENTITY VERIFICATION COMPLETED USING TWO (2) IDENTIFIERS: Name and Date of confirmed by patient verbally. FALL SCREENING: Has the patient had 2 falls in the last year or 1 fall with injury or currently using an Ambulatory Assistive Device (Walker, Cane, Wheelchair, Crutches, etc.)? No PATIENT GENDER DATA: Female. status: : No status: NO. PATIENT RELEVANT IMPLANT DATA REVIEWED: Yes PATIENT PRESENTS WITH AN IMPLANTABLE OR ATTACHED DOMINATRIX: No RADIOLOGY DEPARTMENT: CT; Exam(s) Completed: Lower extremity PERIPHERAL IV DATA: Not applicable SIGNED BY: RT Melany(R) April 02, 2024 12:43 PM documented in this encounter [facility] 03-28-2024 History of Present illness Narrative DOS: 10/23/2023 POD: 59 Procedure: Removal internal fixation, right tibia Arthrotomy with synovectomy, right ankle Partial excision of bone, right tibia This 33 year old female presents for a post op visit. Patient states they were doing well with minimal pain however about 2 months ago pt started getting pain along the medial ankle that has been becoming progressively worse. She rates pain is 9/10 on an average day and is unrelieved with tylenol or ibuprofen. Denies any further injury to that side. Is concerned for a stress fracture due to her significant fracture history in multiple locations of the body. Denies any current nausea, vomiting, fever, chills, shortness of breath, chest pain or calf pain. Denies any other pedal complaints PAST MEDICAL HISTORY No date: Acute right ankle pain No date: Allergies No date: Asthma Comment: as a kid No date: Delayed emergence from general anesthesia No date: Generalized anxiety disorder No date: Hammer toe No date: Migraines No date: Palpitations No date: Plantar fasciitis No date: PONV (postoperative nausea and vomiting) Current Outpatient Medications Medication Sig albuterol HFA (PROVENTIL HFA, VENTOLIN HFA) 90 mcg/actuation inhaler Inhale 2 Puffs as instructed every 6 hours as needed. atenolol (TENORMIN) 25 mg tablet Take 0.5 tablets by mouth once daily as needed. For HR > 100 predniSONE (DELTASONE) 10 mg tablet Dispense 25 tablets of Prednisone 10 mg for a 13 day course of therapy. Please take as directed: 1 tablet every 8 hours for the first 4 days, followed by 1 tablet every 12 hours for the next 4 days, followed by 1 tablet daily for the final 5 days. topiramate (TOPAMAX) 25 mg tablet Take 1 tablet by mouth daily at bedtime for 7 days, THEN 2 tablets daily at bedtime. Patient should start on January 30, 2024. Current Facility-Administered Medications Medication Dose Route Frequency perflutren lipid microspheres 1.3 mL in NaCl (PF) 0.9% 10 mL injection (DEFINITY) INTRAVENOUS DIRECTED PRN sodium chloride 0.9 % (flush) 10 mL (BD POSIFLUSH) 10 mL INTRAVENOUS DIRECTED PRN ALLERGIES No Known Allergies Objective: Patient presents weightbearing as tolerated to right leg. Problem focus examination to the right lower extremity: Incision site is well coapted without evidence of dehiscence. No erythema and no edema surrounding surgical site. No drainage. No lymphadenopathy. No lymphangitis. No surrounding cellulitis. No signs of infection. Patient has no pain to palpation of calf. The calf is soft, supple and nontender without evidence of DVT. Negative Charli's test. Satisfactory alignment is noted. Full muscle strength, +5/5 in DF/PF/IN/EV. No pain with ankle joint ROM. No crepitus with ankle joint ROM. Limited ankle joint DF with osseous block however this is not painful. Pain to palpation of the medial tubercle of calcaneus and coursing along the posterior tibial tendon. No pain with resisted inversion or eversion. POP to lateral and medial malleoli. POP retromalleolar, medial malleolus. Most significant area of pain is direct lateral palpation of distal tibia, just proximal to the medial malleolus. Pedal pulses are palpable. Capillary refill time is less than three seconds to all digits. Sensations are intact to light touch. 3 WB views of L ankle obtained and reviewed today 03/28/24 Radiographs: Hardware intact without breakage or loosening. Triplane position is maintained. Significant joint space loss noted diffusely to the ankle joint. No soft tissue gas. Fibula out to length. No diastasis noted to medial or lateral ankle gutter. No over fractures or dislocations. Assessment: Satisfactory post-operative progress Plan: - The patient was educated on clinical examination findings, postoperative prognosis and protocol. All questions were answered to patient's apparent satisfaction. - XR obtained and reviewed - Begin WBAT in CAM boot that patient has at home. She is agreeable. - Obtain CT of R ankle. Order placed. - OTC analgesia and voltaren as needed RTC after CT Shey Conklin DPM PGY-3 I personally saw and evaluated the patient. I reviewed the resident's note. I agree with the resident's assessment and plan unless otherwise noted. Amarjit Storey DPM, FACFAS documented in this encounter [facility] 03-28-2024 Instructions Shey Conklin DPM - 03/28/2024 11:40 AM EDT -Resume weight bearing on the right in a CAM boot -Prescription given for prednisone taper. Take as instructed: 1 tablet every 8 hours for the first 4 days, followed by 1 tablet every 12 hours for the next 4 days, followed by 1 tablet daily for the final 5 days. -Use heel lifts in boot -Continue at home stretching documented in this encounter [facility] 03-04-2024 Telephone encounter Note Pt. Received her my chart message. Lyle Bailey MA [facility] 03-04-2024 Miscellaneous Notes Pt. Received her my chart message. Lyle Bailey MA ----- Message from Noelle Blanc APRN.DIE DRAWING CHECKER sent at 03/03/2024 2:59 PM EDT ----- Please let patient know their results are WNL. Thank you. documented in this encounter [facility] 03-04-2024 Telephone encounter Note ----- Message from Noelle Blanc APRN.DIE DRAWING CHECKER sent at 03/03/2024 2:59 PM EDT ----- Please let patient know their results are WNL. Thank you. [facility] 03-01-2024 History of Present illness Narrative Transitional Care Management TCM Eligibility Documentation Program: Transitional Care Management Status: Completed TCM Cancelled - Unable to reach patient Effective Dates: unknown - 02/21/2024 Responsible Staff: Ambreen Daniel RN Discharge date: 02/19/2024 (Program start) Date of initial contact: 02/21/2024 Initial contact Target status: No contact; Completed at least 2 attempts within 2 business days post-discharge Summary Discharged from: [facility] Admit Date: 02/15/24-02/19/24 Admitted for: Facial Cellulitis Kalpana Dockery MA Provider Documentation Gayle Thompson is a 33 year old female here today for a follow up to recent hospitalization. I have reviewed the patient's hospital course including diagnostic testing performed during this hospitalization, their discharge medications, and my assessment and plan with the patient and any family members present at today's visit. HOSPITAL COURSE: 33-year-old female with a history of migraine headaches, obesity BMI 35.2, palpitations on PRN atenolol,status post bilateral salpingectomy w/o hysterectomy per patient by choice in order not to have more children. S/P endometrial ablation for DUB. Admitted because of worsening right-sided facial swelling, redness, pain despite taking Bactrim which she was advised to take at [facility]. Also, at [facility] an attempt at I&D was done with purulent drainage noted but no culture was done. On admission, vital signs were stable, no leukocytosis, lactate was normal. Preliminary blood culture was negative to date. Staph aureus nasal swab was positive for MRSA. Preliminary wound culture was positive for Staph aureus. CT neck soft tissue showed small superficial abscess deep to the right upper lip with surrounding cellulitis. CT of the facial bone 2 days later showed stable abscess over the right mandible/lower lip. She was started on intravenous vancomycin and Zosyn which was later de-escalated to intravenous vancomycin only. Bactroban nasal ointment was started. Pain control was with PRN motrin later changed to PRN toradol with better pain control. Antibiotic was managed by the infectious disease physician. She was seen by the general surgeon after 3 days of IV antibiotics and she recommends that the area is progressively healing and no need for I&D at this time. She was continued on intravenous vancomycin and discharged on 10 days of Bactrim per ID recommendation.. She was advised to continue Bactrim as directed and follow-up with her family doctor after discharge and will need to have renal function test and potassium level rechecked during follow-up.. Encouraged to increase fluid intake while on Bactrim. Avoid daily NSAIDs and if needing to use NSAID can use only sparingly while on Bactrim to decrease risk of development of YONATAN. I informed her that it is most likely that her wound culture results is due to MRSA given that her nasal swab was positive for MRSA however will call and notify her if the final results shows otherwise and antibiotic changes is needed. Excuse duty letter written per patients request. HPI: She reports she is feeling much better since her discharge. She completed the course of Bactrim yesterday. She denies any fevers. She was also seen in the ER on 02/27/24 for an asthma exacerbation. She was given a couple nebulizer treatments and a course of Prednisone and her breathing improved. She hasn't needed to use her Albuterol since then. Review of Systems Constitutional: Negative for chills, diaphoresis, fever, malaise/fatigue and weight loss. HENT: Negative. Respiratory: Negative. Cardiovascular: Negative. Gastrointestinal: Negative for abdominal pain, diarrhea, heartburn, nausea and vomiting. Musculoskeletal: Negative. Skin: Negative for itching and rash. Neurological: Negative for dizziness and headaches. Vitals BP 108/72 Pulse 79 Temp 97.8 Resp 16 Ht 5' 8 (1.73m) Wt 234 lb (106.1kg) SpO2 98% BMI 35.59 kg/(m^2). Physical Exam Vitals and nursing note reviewed. Constitutional: Appearance: Normal appearance. She is not ill-appearing. HENT: Mouth/Throat: Mouth: Mucous membranes are moist. Eyes: Pupils: Pupils are equal, round, and reactive to light. Cardiovascular: Rate and Rhythm: Normal rate and regular rhythm. Heart sounds: Normal heart sounds. Pulmonary: Breath sounds: Normal breath sounds. Musculoskeletal: Cervical back: Neck supple. Lymphadenopathy: Cervical: No cervical adenopathy. Skin: General: Skin is warm and dry. Findings: No erythema. Neurological: General: No focal deficit present. Mental Status: She is alert and oriented to person, place, and time. Latest Ref Rng 02/15/2024 02/17/2024 02/19/2024 WBC 3.70 - 11.00 k/uL 6.12 RBC 3.90 - 5.20 m/uL 5.07 Hemoglobin 11.5 - 15.5 g/dL 15.1 Hematocrit 36.0 - 46.0 % 44.1 MCV 80.0 - 100.0 fL 87.0 MCH 26.0 - 34.0 pg 29.8 MCHC 30.5 - 36.0 g/dL 34.2 RDW-CV 11.5 - 15.0 % 13.2 Platelet Count 150 - 400 k/uL 202 MPV 9.0 - 12.7 fL 10.8 Absolute nRBC <0.01 k/uL <0.01 Glucose 74 - 99 mg/dL 127 (H) BUN 7 - 21 mg/dL 11 Creatinine 0.58 - 0.96 mg/dL 0.91 Sodium 136 - 144 mmol/L 138 Potassium 3.7 - 5.1 mmol/L 4.5 Chloride 98 - 107 mmol/L 103 CO2 22 - 30 mmol/L 23 Anion Gap 8 - 15 mmol/L 12 Calcium 8.5 - 10.2 mg/dL 9.4 eGFR >=60 mL/min/1.73m 87 WOUND CULTURE Rare Methicillin-RESISTANT Staphylococcus aureus (MRSA) ! Smear Result Rare Gram positive cocci ! Smear Result Rare Polymorphonuclear leukocytes ! Staphylococcus aureus DNA Not Detected Methicillin-RESISTANT Staphylococcus aureus (MRSA) Detected ! Legend: ! Abnormal (H) High ASSESSMENT/PLAN: 1. Facial cellulitis - ICD9: 682.0, ICD10: L03.211 (primary diagnosis) - Resolved, it was recommended a renal panel and potassium level are checked outpatient due to Bactrim Rx. - COMPREHENSIVE METABOLIC PANEL 2. Abscess of face - ICD9: 682.0, ICD10: L02.01 - Resolved, completed course of antibiotics 3. Mild intermittent asthma with acute exacerbation - ICD9: 493.92, ICD10: J45.21 - Mild intermittent asthma improved - Continue current medications - Avoidance of triggers recommended - Follow up should any other issues arise. Noelle CR March 01, 2024 1:06 PM documented in this encounter [facility] 02-29-2024 Telephone encounter Note Done Thanks Amarjit Storey DPM, FACFAS [facility] 02-29-2024 Miscellaneous Notes Done Thanks Amarjit Storey DPM, FACFAS documented in this encounter [facility] 02-28-2024 History of Present illness Narrative ED Follow Up: Patient discharged from [facility] ED on 02/28/2024. 1. How are you feeling since your ED visit? Same Have your symptoms improved or resolved? No 2. Were you prescribed any medications while in the ED or advised to stop any medication? Yes - If yes, were you able to fill your prescriptions? No, will be picking up today -if stopped medication, what was the medication? na 3. Were you advised to schedule a follow up appointment with your provider? Yes - If no, Do you feel like you need an appointment scheduled? Not applicable - If yes, Do you need this scheduled now or has this already been scheduled? No, schedule 03/05/2024 with Noelle Blanc APRN. CNP 4. Were you able to contact the office or water filtration technician provider prior to your ED visit? No 5. Is there anything else I can do for you today? No ED Follow Up: Patient discharged from [facility] ED on 02/27/2024. 1. How are you feeling since your ED visit? Left message for pt to call office. Have your symptoms improved or resolved? Left message for pt to call office. 2. Were you prescribed any medications while in the ED or advised to stop any medication? Left message for pt to call office. - If yes, were you able to fill your prescriptions? Left message for pt to call office. -if stopped medication, what was the medication? Left message for pt to call office. 3. Were you advised to schedule a follow up appointment with your provider? Left message for pt to call office. - If no, Do you feel like you need an appointment scheduled? Left message for pt to call office. - If yes, Do you need this scheduled now or has this already been scheduled? Left message for pt to call office. 4. Were you able to contact the office or water filtration technician provider prior to your ED visit? Left message for pt to call office. 5. Is there anything else I can do for you today? Left message for pt to call office. documented in this encounter [facility] 02-19-2024 Note HNO ID: [id number] Author: MARIELA HOUGH MD Service: Infectious Disease Author Type: Physician Type: Progress Notes Filed: 02/19/2024 15:32 Note Text: CONSULT PROGRESS NOTE Patient Name: Gayle Thompson CONSULTING SERVICE: INFECTIOUS DISEASE MEDICATIONS: Current Facility-Administered Medications Medication Dose Route Frequency keTORolac 15 mg injection (Toradol) 15 mg INTRAVENOUS q 6 H PRN vancomycin 1.75 g in D5W 500 mL (VANCOCIN) 1.75 g INTRAVENOUS q 12 HR diphenhydrAMINE 25 mg injection (BENADRYL) 25 mg INTRAVENOUS q 6 H PRN mupirocin 2 % 0.5 g nasal ointment (BACTROBAN) 0.5 g NASAL BID NaCl 0.9% iv flush bag 20 mL INTRAVENOUS PRN vancomycin dosing and monitoring per pharmacy OTHER As Directed topiramate 50 mg tab(s) (TOPAMAX) 50 mg ORAL AT BEDTIME ondansetron orally disintegrating 4 mg tab(s) (ZOFRAN ODT) 4 mg ORAL q 6 H PRN Or ondansetron (PF) 4 mg injection (ZOFRAN) 4 mg INTRAVENOUS q 6 H PRN PHYSICAL EXAM: Vital signs: BP 115/64 Pulse 84 Temp 36.6 ?C (97.8 ?F) (Oral) Resp 20 Ht 172.7 cm (5' 8) Wt 105 kg (231 lb 7.7 oz) LMP (LMP Unknown) SpO2 99% BMI 35.20 kg/m? Eyes, Ear, Nose, Mouth and Throat: PERRLA Neck: supple, no lymphadenopathy Respiratory: Cardiovascular: Abdomen: Genitourinary: within normal limits Extremities: Skin: Facial swelling looks much improved Lab data: CBC with diff: WBC 6.12 02/19/2024 RBC 5.07 02/19/2024 Hemoglobin 15.1 02/19/2024 Hematocrit 44.1 02/19/2024 MCV 87.0 02/19/2024 MCH 29.8 02/19/2024 MCHC 34.2 02/19/2024 RDW-CV 13.2 02/19/2024 Platelet Count 202 02/19/2024 MPV 10.8 02/19/2024 Neut% 74.8 02/15/2024 Lymph% 15.0 02/15/2024 [place]% 7.5 02/15/2024 Eosin% 2.0 02/15/2024 Baso% 0.5 02/15/2024 Abs Neut (ANC) 6.39 02/15/2024 Abs [place] 0.64 02/15/2024 Abs Eosin 0.17 02/15/2024 Abs Baso 0.04 02/15/2024 Glucose (mg/dL) Date Value 02/19/2024 127 09/02/2020 90 Potassium (mmol/L) Date Value 02/19/2024 4.5 09/02/2020 3.7 Sodium (mmol/L) Date Value 02/19/2024 138 09/02/2020 143 Chloride (mmol/L) Date Value 02/19/2024 103 09/02/2020 105 CO2 (mmol/L) Date Value 02/19/2024 23 09/02/2020 30 Creatinine (mg/dL) Date Value 02/19/2024 0.91 09/02/2020 0.93 BUN (mg/dL) Date Value 02/19/2024 11 09/02/2020 13 Anion Gap (mmol/L) Date Value 02/19/2024 12 09/02/2020 8 Calcium (mg/dL) Date Value 09/02/2020 9.3 Calcium, Total (mg/dL) Date Value 02/19/2024 9.4 Protein, Total (g/dL) Date Value 02/18/2024 6.5 09/02/2020 7.4 Albumin (g/dL) Date Value 02/18/2024 4.3 09/02/2020 4.4 Bilirubin, Total (mg/dL) Date Value 02/18/2024 0.4 09/02/2020 0.5 Alkaline Phosphatase (U/L) Date Value 02/18/2024 74 09/02/2020 57 AST (U/L) Date Value 02/18/2024 15 09/02/2020 19 ALT (U/L) Date Value 02/18/2024 18 09/02/2020 16 Microbiology data: 02-17-2024 Staph aureus + 02-15-2024 MRSA PCR positive Imaging data: 02-17-2024 CT shows stable abscess over right mandibular and lower lip ASSESSMENT: Facial cellulitis/abscess MRSA 1. Patient okay to discharge on oral Bactrim 1 double strength tablet p.o. twice daily to complete a 10-day treatment course I have reviewed and interpreted all lab tests imaging studies and documentation from other healthcare providers I am monitoring antibiotics for side effects, toxicity and vancomycin levels RECOMMENDATIONS: SIGNATURE: Mariela Hough MD DATE of SERVICE: February 19, 2024 TIME of SERVICE: 3:28 PM This note is not final until Authenticated by responsible provider. [facility] 02-18-2024 Note HNO ID: [id number] Author: KRISTYN PAUL MD Service: Hospital Medicine Author Type: Physician Type: Progress Notes Filed: 02/18/2024 22:48 Note Text: DEPARTMENT OF HOSPITAL MEDICINE PROGRESS NOTE SERVICE DATE: 02/18/2024 SERVICE TIME: 3:00 PM Hospital Medicine/Primary Attending: Kristyn Paul MD NIGHT AND WEEKEND COVERAGE: [place] COVERAGE: Days: [phone], please page attending physician. Nights: [phone], please page [place] [facility] Night coverage pager [phone]. Subjective INTERVAL HPI: Patient seen seated with family at a sitting place in the hallway.Ok with being seen and examined there Reports marked improvement in swelling,redness ,pain Easier to eat,drink Denies fever nor chills Current Facility-Administered Medications Medication Dose Route Frequency NaCl 0.9% iv flush bag 20 mL INTRAVENOUS PRN vancomycin dosing and monitoring per pharmacy OTHER As Directed topiramate 50 mg tab(s) (TOPAMAX) 50 mg ORAL AT BEDTIME ondansetron orally disintegrating 4 mg tab(s) (ZOFRAN ODT) 4 mg ORAL q 6 H PRN Or ondansetron (PF) 4 mg injection (ZOFRAN) 4 mg INTRAVENOUS q 6 H PRN diphenhydrAMINE 25 mg injection (BENADRYL) 25 mg INTRAVENOUS q 6 H PRN mupirocin 2 % 0.5 g nasal ointment (BACTROBAN) 0.5 g NASAL BID keTORolac 15 mg injection (Toradol) 15 mg INTRAVENOUS q 6 H PRN vancomycin 1.75 g in D5W 500 mL (VANCOCIN) 1.75 g INTRAVENOUS q 12 HR Objective PHYSICAL EXAM: BP 132/80 Pulse 83 Temp (Src) 97.9 (Oral) Resp 16 Ht 5' 8 (1.73m) Wt 231 lb 7.7 oz (105.0kg) SpO2 99% BMI 35.21 kg/(m2). O2 Therapy: Room Air Physical Exam Performed GENERAL: Alert, no distress, cooperative HEAD/SINUSES:Swollen lip (lower >upper), swelling right cheek, erythema on the right cheek -improved - area not very tender as yesterday , healed scabs on the jaw with no drainage OROPHARYNX: No evidence of dental caries / oropharyngeal infection LUNGS: Lungs clear to auscultation, No wheezing nor rhonchi CARDIAC: Normal S1 and S2; no rubs, murmurs, or gallops EXTREMITIES: No edema NEURO: Awake,alert, oriented x3.Can move all extremity Lines, Drains, and Airways Line Duration Peripheral 02/18/24 1030 [facility] Left Forearm 22 Gauge <1 day Reviewed lines and needs to be continued: REASONS: Intravenous fluids, Intravenous antibiotics, and Electrolyte replacement DATA: Diagnostic tests reviewed for today's visit: Most recent labs Most recent imaging Assessment/Plan Problem List Cellulitis (POA: Yes) Facial cellulitis (POA: Status not on file) HOSPITAL COURSE: Gayle Thompson is a 33 year old female presented with past medical history of migraine ,asthma,anxiety admitted because of swelling on Right side of the face and lower lip Failed outpatient rx with bactrim Principal Problem: Right sided facial Cellulitis S/P I and D at outside hospital - ?dry tap and failed outpatient rx with bactrim Assessment AND Plan: CT soft tissue neck 02/15/24 small superficial abscess deep to the right upper lip with surrounding asbcess. No radiopaque foreign bodies. No subcutaneous emphysema. . CT facial bone 02/17/24 Stable abscess over the right mandible/lower lip. - Nasal swab for MRSA +ve on bactroban - CRP: 4.7 -Prelim blood cultures NTD -Patient afebrile, VSS, no leucocytosis, normal lactate -improved symptoms -ID and gen surgery consulted -Per general surgery, no need for I and D as patient clinically improving, will reasses am -Discussed with ID, continue IV vanco --D/C motrin due to lack of efficacy -Continue IV toradol PRN -On IV vancomycin and bactroban, continue , vanco level 9.1 Medication and Non-Pharmacologic VTE Prophylaxis/Anticoagulants 02/15/24 1700 activity - mobilize patient (pr,il) VTE Prophylaxis: VTE prophylaxis appropriate Disposition: Home Plan of care discussed with Patient, RN, and Consultants: ID Plan communicated to: Family,boyfriend SIGNATURE: Kristyn Paul MD PATIENT NAME: Gayle Thompson DATE: February 18, 2024 TIME: 5:39 PM [facility] 02-17-2024 Note HNO ID: [id number] Author: KRISTYN PAUL MD Service: Hospital Medicine Author Type: Physician Type: Progress Notes Filed: 02/17/2024 22:46 Note Text: DEPARTMENT OF HOSPITAL MEDICINE PROGRESS NOTE SERVICE DATE: 02/17/2024 SERVICE TIME: 2: 10 PM Hospital Medicine/Primary Attending: Kristyn Paul MD NIGHT AND WEEKEND COVERAGE: [place] COVERAGE: Days: [phone], please page attending physician. Nights: [phone], please page [place] [facility] Night coverage pager [phone]. Subjective INTERVAL HPI: Patient reports no improvement in pain,swelling or redness since admission Reports current analgesics not effective - naproxen Denies fever nor chills Current Facility-Administered Medications Medication Dose Route Frequency NaCl 0.9% iv flush bag 20 mL INTRAVENOUS PRN vancomycin dosing and monitoring per pharmacy OTHER As Directed topiramate 50 mg tab(s) (TOPAMAX) 50 mg ORAL AT BEDTIME ondansetron orally disintegrating 4 mg tab(s) (ZOFRAN ODT) 4 mg ORAL q 6 H PRN Or ondansetron (PF) 4 mg injection (ZOFRAN) 4 mg INTRAVENOUS q 6 H PRN diphenhydrAMINE 25 mg injection (BENADRYL) 25 mg INTRAVENOUS q 6 H PRN mupirocin 2 % 0.5 g nasal ointment (BACTROBAN) 0.5 g NASAL BID keTORolac 15 mg injection (Toradol) 15 mg INTRAVENOUS q 6 H PRN vancomycin 1.75 g in D5W 500 mL (VANCOCIN) 1.75 g INTRAVENOUS q 12 HR iv contrast (radiology procedure) INTRAVENOUS DIRECTED PRN Objective PHYSICAL EXAM: BP 126/81 Pulse 85 Temp (Src) 98.2 (Oral) Resp 18 Ht 5' 8 (1.73m) Wt 231 lb 7.7 oz (105.0kg) SpO2 98% BMI 35.21 kg/(m2). O2 Therapy: Room Air Physical Exam Performed GENERAL: Alert, no distress, cooperative HEAD/SINUSES:Swollen lip (lower >upper), swelling right cheek, erythema on the right cheek - area very tender , healed scab on the jaw OROPHARYNX: No evidence of dental caries / oropharyngeal infection LUNGS: Lungs clear to auscultation, No wheezing nor rhonchi CARDIAC: Normal S1 and S2; no rubs, murmurs, or gallops EXTREMITIES: No edema NEURO: Awake,alert, oriented x3.Can move all extremity Lines, Drains, and Airways Line Duration Peripheral 02/15/24 1049 [facility] Short Right Antecubital 20 Gauge 2 days Reviewed lines and needs to be continued: REASONS: Intravenous fluids, Intravenous antibiotics, and Electrolyte replacement DATA: Diagnostic tests reviewed for today's visit: Most recent labs Most recent imaging Assessment/Plan Problem List Cellulitis (POA: Yes) HOSPITAL COURSE: Gayle Thompson is a 33 year old female presented with past medical history of migraine ,asthma,anxiety admitted because of swelling on Right side of the face and lower lip Failed outpatient rx with bactrim Principal Problem: Right sided facial Cellulitis S/P I and D at outside hospital - ?dry tap and failed outpatient rx with bactrim Assessment AND Plan: CT soft tissue neck small superficial abscess deep to the right upper lip with surrounding asbcess. No radiopaque foreign bodies. No subcutaneous emphysema. . - Nasal swab for MRSA +ve on bactroban - CRP: 4.7 -Prelim blood cultures NTD -Patient afebrile, VSS, no leucocytosis, normal lactate -Reports no improvement in symptoms with current rx . -ID consulted -Discussed with ID, will consult general surgery to daniel re:I ANDD , recc CT face , continue IV vanco --D/C motrin due to lack of efficacy Start IV toradol PRN, first dose now -On IV vancomycin and bactroban, continue , vanco level 9.1 Medication and Non-Pharmacologic VTE Prophylaxis/Anticoagulants 02/15/24 1700 activity - mobilize patient (pr,il) VTE Prophylaxis: VTE prophylaxis appropriate Disposition: Home Plan of care discussed with Patient, RN, and Consultants: ID Plan communicated to: N/A SIGNATURE: Kristyn Paul MD PATIENT NAME: Gayle Thompson DATE: February 17, 2024 TIME: 6:39 PM [facility] 02-17-2024 Note HNO ID: [id number] Author: MARIELA HOUGH MD Service: Infectious Disease Author Type: Physician Type: Progress Notes Filed: 02/17/2024 13:16 Note Text: CONSULT PROGRESS NOTE Patient Name: Gayle Thompson CONSULTING SERVICE: INFECTIOUS DISEASE MEDICATIONS: Current Facility-Administered Medications Medication Dose Route Frequency keTORolac 15 mg injection (Toradol) 15 mg INTRAVENOUS q 6 H PRN vancomycin 1.75 g in D5W 500 mL (VANCOCIN) 1.75 g INTRAVENOUS q 12 HR iv contrast (radiology procedure) INTRAVENOUS DIRECTED PRN diphenhydrAMINE 25 mg injection (BENADRYL) 25 mg INTRAVENOUS q 6 H PRN mupirocin 2 % 0.5 g nasal ointment (BACTROBAN) 0.5 g NASAL BID NaCl 0.9% iv flush bag 20 mL INTRAVENOUS PRN vancomycin dosing and monitoring per pharmacy OTHER As Directed topiramate 50 mg tab(s) (TOPAMAX) 50 mg ORAL AT BEDTIME ondansetron orally disintegrating 4 mg tab(s) (ZOFRAN ODT) 4 mg ORAL q 6 H PRN Or ondansetron (PF) 4 mg injection (ZOFRAN) 4 mg INTRAVENOUS q 6 H PRN PHYSICAL EXAM: Vital signs: BP 135/87 Pulse 99 Temp 36.9 ?C (98.4 ?F) (Oral) Resp 16 Ht 172.7 cm (5' 8) Wt 105 kg (231 lb 7.7 oz) LMP (LMP Unknown) SpO2 97% BMI 35.20 kg/m? Eyes, Ear, Nose, Mouth and Throat: PERRLA Neck: supple, no lymphadenopathy Respiratory: Cardiovascular: Abdomen: Genitourinary: within normal limits Extremities: Skin:right lip and submandibular area and face still swollen Lab data: CBC with diff: WBC 8.10 02/17/2024 RBC 4.59 02/17/2024 Hemoglobin 13.5 02/17/2024 Hematocrit 39.9 02/17/2024 MCV 86.9 02/17/2024 MCH 29.4 02/17/2024 MCHC 33.8 02/17/2024 RDW-CV 13.3 02/17/2024 Platelet Count 174 02/17/2024 MPV 11.0 02/17/2024 Neut% 74.8 02/15/2024 Lymph% 15.0 02/15/2024 [place]% 7.5 02/15/2024 Eosin% 2.0 02/15/2024 Baso% 0.5 02/15/2024 Abs Neut (ANC) 6.39 02/15/2024 Abs [place] 0.64 02/15/2024 Abs Eosin 0.17 02/15/2024 Abs Baso 0.04 02/15/2024 Glucose (mg/dL) Date Value 02/17/2024 112 09/02/2020 90 Potassium (mmol/L) Date Value 02/17/2024 4.2 09/02/2020 3.7 Sodium (mmol/L) Date Value 02/17/2024 138 09/02/2020 143 Chloride (mmol/L) Date Value 02/17/2024 106 09/02/2020 105 CO2 (mmol/L) Date Value 02/17/2024 22 09/02/2020 30 Creatinine (mg/dL) Date Value 02/17/2024 0.93 09/02/2020 0.93 BUN (mg/dL) Date Value 02/17/2024 12 09/02/2020 13 Anion Gap (mmol/L) Date Value 02/17/2024 10 09/02/2020 8 Calcium (mg/dL) Date Value 09/02/2020 9.3 Calcium, Total (mg/dL) Date Value 02/17/2024 8.9 Protein, Total (g/dL) Date Value 02/17/2024 6.9 09/02/2020 7.4 Albumin (g/dL) Date Value 02/17/2024 4.0 09/02/2020 4.4 Bilirubin, Total (mg/dL) Date Value 02/17/2024 0.4 09/02/2020 0.5 Alkaline Phosphatase (U/L) Date Value 02/17/2024 71 09/02/2020 57 AST (U/L) Date Value 02/17/2024 15 09/02/2020 19 ALT (U/L) Date Value 02/17/2024 19 09/02/2020 16 Microbiology data: 02-15-2024 bc negative to date Mrsa pcr + Imaging data: 02-15-2024 ct neck Small abscess deep to the right upper lip ASSESSMENT: Facial cellulitis RECOMMENDATIONS: Stat ct of face Continue vanco SIGNATURE: Mariela Hough MD DATE of SERVICE: February 17, 2024 TIME of SERVICE: 1:09 PM This note is not final until Authenticated by responsible provider. [facility] 02-17-2024 Note HNO ID: [id number] Author: NANCY LOONEY MD Service: General Surgery Author Type: Physician Type: Procedures Filed: 02/17/2024 12:37 Note Text: UNIVERSAL PROTOCOL / SAFETY CHECKLIST Procedure to be Performed: IANDD right lower lip skin abscess Sign In: A Moment of CARE was completed. Personnel directly involved with the procedure wore the appropriate PPE (Personal Protective Equipment). Patient/Surrogate Stated/Verified: PATIENT VERIFIED(optional for EMERGENT procedures): Patient name, Date of , Relevant allergies, and The intended procedure Time Out Communication: Intended patient and procedure match the source documents. Consent documented and matches the intended procedure. Procedure: After informed consent was obtained, the right lower lip was cleaned with alcohol and anesthetized with 1% lidocaine. The indurated area was incised with 11 blade scalpel. A deep pocket of pus was drained and sent for culture. Minimal bleeding. Tolerated well. Sign Out: Culture sent Nancy Looney MD [facility] 02-16-2024 Note HNO ID: [id number] Author: KAREN SERRANO MD Service: Hospital Medicine Author Type: Physician Type: Progress Notes Filed: 02/16/2024 12:26 Note Text: DEPARTMENT OF HOSPITAL MEDICINE PROGRESS NOTE Name: Gayle Thompson SERVICE DATE: February 16, 2024 SERVICE TIME: 12:24 PM Hospital Medicine/Primary Attending: Karen Serrano MD (pager: [phone]) NIGHT COVERAGE: pager # [phone] (Page between 5 PM - 7 AM) INTERVAL HPI: Feeling better ASSESSMENT AND PLAN 33 YF with hx of migraine here with facial cellulitis - cont Vanc for now - Nasal swab for MRSA +ve -> bactroban - CRP: 4.7 - ID consult Dr. Kristyn Paul will be assuming care from tomorrow VTE Prophylaxis: Early Ambulation Disposition: Home Plan of care discussed with: Provider, RN, Patient MEDICATIONS: Current Facility-Administered Medications Medication Dose Route Frequency NaCl 0.9% iv flush bag 20 mL INTRAVENOUS PRN vancomycin 1.5 g in NaCl 0.9% 250 mL (VANCOCIN) 0.015 g/kg/dose INTRAVENOUS q 12 HR vancomycin dosing and monitoring per pharmacy OTHER As Directed topiramate 50 mg tab(s) (TOPAMAX) 50 mg ORAL AT BEDTIME ondansetron orally disintegrating 4 mg tab(s) (ZOFRAN ODT) 4 mg ORAL q 6 H PRN Or ondansetron (PF) 4 mg injection (ZOFRAN) 4 mg INTRAVENOUS q 6 H PRN ibuprofen 600 mg tab(s) (MOTRIN) 600 mg ORAL q 6 H PRN diphenhydrAMINE 25 mg injection (BENADRYL) 25 mg INTRAVENOUS q 6 H PRN mupirocin 2 % 0.5 g nasal ointment (BACTROBAN) 0.5 g NASAL BID PHYSICAL EXAM: Blood pressure 121/81, pulse 77, temperature 36.7 ?C (98 ?F), temperature source Oral, resp. rate 20, height 172.7 cm (5' 8), weight 105 kg (231 lb 7.7 oz), SpO2 99%, unknown if currently . GENERAL: alert, no distress, cooperative SKIN: Swelling near lower like with redness + over the left half OROPHARYNX: Lips, mucosa, and tongue normal. Oropharynx moist. LUNGS: Lungs clear to auscultation. Good diaphragmatic excursion. CARDIAC: normal S1 and S2; no rubs, murmurs, or gallops. No JVD ABDOMEN: Abdomen soft, non-tender. BS normal. No masses or organomegaly. EXTREMITIES: No edema. NEURO: Negative DATA: Recent Labs 02/16/24 0512 02/15/24 1049 02/14/241956 WBC 8.32 8.54 10.46 HB 13.5 14.3 13.7 HCT 39.9 42.2 39.5 PLT 169 170 171 MCV 87.5 86.8 87.2 RDWCV 13.4 13.3 13.4 NEUTP -- 74.8 73.9 ABSNEUT -- 6.39 7.73* LYMPHP -- 15.0 18.1 MONOP -- 7.5 6.2 EODINP -- 2.0 1.2 GLUC 113* 95 79 NA 140 138 140 K 4.1 3.9 3.6* CHLOR 106 106 106 CO2 24 23 23 ANION 10 9 11 BUN 10 14 16 CREAT 0.93 0.90 0.94 (Some elements copied from note from yesterday, which have been updated where appropriate, and reflect current medical decision making from today February 16, 2024) SIGNATURE: Karen Serrano MD PAGER: [phone] DATE: February 16, 2024 TIME: 12:24 PM [facility] 01-22-2024 Note Addended by: NOELLE BLANC on: 01/22/2024 10:15 AM Modules accepted: Orders [facility] 01-22-2024 Miscellaneous Notes Addended by: NOELLE BLANC on: 01/22/2024 10:15 AM Modules accepted: Orders documented in this encounter [facility] 01-12-2024 Telephone encounter Note Done Thanks Amarjit Storey DPM, FACFAS [facility] 01-12-2024 Miscellaneous Notes Done Thanks Amarjit Storey DPM, FACFAS documented in this encounter [facility] 12-27-2023 Note Addended by: NOELLE BLANC on: 12/27/2023 01:35 PM Modules accepted: Orders [facility] 12-27-2023 Telephone encounter Note Referral placed. [facility] 12-27-2023 Miscellaneous Notes Addended by: NOELLE BLANC on: 12/27/2023 01:35 PM Modules accepted: Orders Referral placed. Patient notified of results . Number given to PT here in [place]. Lyle Bailey MA ----- Message from Noelle Blanc APRN.CNP sent at 12/27/2023 8:05 AM EDT ----- US negative for DVT. Recommend PT. Please provide her the number and send back to me and I will place the referral. Thanks! documented in this encounter [facility] 12-27-2023 Telephone encounter Note Patient notified of results . Number given to PT here in lod[place]. Lyle Bailey MA [facility] 12-27-2023 Telephone encounter Note ----- Message from Noelle Blanc APRN.DIE DRAWING CHECKER sent at 12/27/2023 8:05 AM EDT ----- US negative for DVT. Recommend PT. Please provide her the number and send back to me and I will place the referral. Thanks! [facility] 12-26-2023 History of Present illness Narrative Radiology Service Progress Note PATIENT NAME: Gayle Thompson DATE OF SERVICE: December 26, 2023 TIME: 5:27 PM PATIENT IDENTITY VERIFICATION COMPLETED USING TWO (2) IDENTIFIERS: Name and Date of confirmed by patient verbally. FALL SCREENING: Has the patient had 2 falls in the last year or 1 fall with injury or currently using an Ambulatory Assistive Device (Walker, Cane, Wheelchair, Crutches, etc.)? No PATIENT GENDER DATA: Female. status: : No status: NO. PATIENT RELEVANT IMPLANT DATA REVIEWED: Yes PATIENT PRESENTS WITH AN IMPLANTABLE OR ATTACHED DOMINATRIX: No RADIOLOGY DEPARTMENT: Ultrasound PERIPHERAL IV DATA: Not applicable SIGNED BY: Regla Wilson RDMS, RVT December 26, 2023 5:27 PM documented in this encounter [facility] 12-26-2023 History of Present illness Narrative Images from the original note were not included. CHIEF COMPLAINT: Gayle Thompson is a 33 year old female who presents for right calf pain for the last 2 months since she has surgery on her right ankle in October. She rates her pain a 3-4/10 and describes it as a tightness and painful. She has been trying to stretch her leg at home which helps temporarily but then the pain returns. She denies any history of blood clots. Denies SOB, CP, dizziness, palpitations. She had surgery on her right ankle with Dr. Storey on 10/23/23 for removal of hardware. She was not referred to PT afterwards. I reviewed past medical, surgical, social, and family histories today and updated chart. Allergies, chronic medications, and supplements were also reviewed. The history is provided by the patient. 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 Removal internal fixation, right tibia PROCEDURE Bilateral pins in big toes 2010 PT ED OBSTETRICS & GYNECOLOGY 08/2023 ENDOMETRIAL ABLATION SALPINGECTOMY COMPLETE/PARTIAL UNI/BI SPX 2020 Social History Tobacco Use Smoking status: Never Smokeless tobacco: Never Vaping Use Vaping Use: Never used Substance Use Topics Alcohol use: Yes Comment: occ. Drug use: Never ALLERGIES No Known Allergies Family History Problem Relation Age of Onset other (Circulation problems) Mother other (High Blood Pressure) Mother other (fibromyalgia) Mother Hypertension Mother Cancer Mother cervical cancer Allergies Mother Bee venom, seasonal Depression Mother Anxiety disorder Mother Migraines Mother Thyroid Mother ADD/ADHD Father Migraines Sister Anxiety disorder Sister Depression Sister Asthma Sister Obesity Sister Thyroid Sister other (Gallbladder) Sister Asthma Brother Alzheimer's Disease Brother Diabetes Brother Cancer Maternal Grandmother Arthritis Maternal Grandmother COPD Maternal Grandmother other (ibs) Maternal Grandfather Obesity Paternal Grandmother other (colitis) Paternal Grandmother other (GERD) Daughter ADD/ADHD Son Allergies Son several other (gerd) Son Colon Cancer Other Current Outpatient Medications Medication Sig Dispense Refill meloxicam (MOBIC) 15 mg tablet Take 1 tablet by mouth once daily. 30 tablet 3 atenolol (TENORMIN) 25 mg tablet Take 0.5 tablets by mouth once daily as needed. For HR > 100 30 tablet 0 albuterol HFA (PROVENTIL HFA, VENTOLIN HFA) 90 mcg/actuation inhaler Inhale 2 Puffs as instructed every 4 hours as needed. 1 Inhaler 0 Current Facility-Administered Medications Medication Dose Route Frequency Provider Last Rate Last Admin perflutren lipid microspheres 1.3 mL in NaCl (PF) 0.9% 10 mL injection (DEFINITY) INTRAVENOUS DIRECTED PRN Noelle Blanc, CLINICAL INFORMATICS SPEC.DIE DRAWING CHECKER sodium chloride 0.9 % (flush) 10 mL (BD POSIFLUSH) 10 mL INTRAVENOUS DIRECTED PRN Noelle Blanc, TRAVIS.RIN Review of Systems Constitutional: Negative. Eyes: Negative for visual disturbance. Respiratory: Negative for chest tightness, shortness of breath and wheezing. Cardiovascular: Negative for chest pain, palpitations and leg swelling. Gastrointestinal: Negative. Genitourinary: Negative. Musculoskeletal: Positive for arthralgias. Negative for neck pain and neck stiffness. Right posterior leg pain Skin: Negative. Neurological: Negative for dizziness, light-headedness and headaches. Hematological: Negative. BP 112/64 Pulse 83 Temp 98.3 Resp 16 Ht 5' 8 (1.73m) Wt 241 lb (109.3kg) SpO2 99% BMI 36.65 kg/(m^2). Physical Exam Vitals and nursing note reviewed. Constitutional: Appearance: Normal appearance. Cardiovascular: Rate and Rhythm: Normal rate. Pulses: Normal pulses. Pulmonary: Effort: Pulmonary effort is normal. Musculoskeletal: Left lower leg: Tenderness present. No swelling or bony tenderness. No edema. Legs: Skin: General: Skin is warm and dry. Findings: No bruising, ecchymosis or erythema. Neurological: Mental Status: She is alert and oriented to person, place, and time. Sensory: Sensation is intact. Gait: Gait is intact. Psychiatric: Mood and Affect: Mood normal. Behavior: Behavior is cooperative. Cognition and Memory: Cognition normal. ASSESSMENT/PLAN: 1. Pain in right lower leg - ICD9: 729.5, ICD10: M79.661 - US to r/o DVT due to surgery within 60 days. - If negative, may need referral to PT - US DVT LOWER RIGHT New medication(s) prescribed today: None. Counseling completed in adopting health behaviors such as avoiding excessive alcohol use, avoid tobacco use, improve nutrition, and engage in physical activities. Copy of written care plan, clinical summary, treatment plan, new medications, goals, and self management requirements were given to patient. Noelle Blanc APRN.RIN documented in this encounter [facility] 12-21-2023 History of Present illness Narrative DOS: 10/23/2023 POD: 59 Procedure: Removal internal fixation, right tibia Arthrotomy with synovectomy, right ankle Partial excision of bone, right tibia This 33 year old female presents for a post op visit. Patient states they are doing well. Pain is well controlled. Relates she is able to do all desired activity without pain. States she uses her ASO for ambulatory intensive activity. Relates no edema. Is using voltaren with good relief. Denies any current nausea, vomiting, fever, chills, shortness of breath, chest pain or calf pain. Denies any other pedal complaints PAST MEDICAL HISTORY Diagnosis Date Acute right ankle pain Allergies Asthma as a kid Delayed emergence from general anesthesia Generalized anxiety disorder Hammer toe Migraines Palpitations Plantar fasciitis PONV (postoperative nausea and vomiting) Current Outpatient Medications Medication Sig meloxicam (MOBIC) 15 mg tablet Take 1 tablet by mouth once daily. atenolol (TENORMIN) 25 mg tablet Take 0.5 tablets by mouth once daily as needed. For HR > 100 albuterol HFA (PROVENTIL HFA, VENTOLIN HFA) 90 mcg/actuation inhaler Inhale 2 Puffs as instructed every 4 hours as needed. Current Facility-Administered Medications Medication Dose Route Frequency perflutren lipid microspheres 1.3 mL in NaCl (PF) 0.9% 10 mL injection (DEFINITY) INTRAVENOUS DIRECTED PRN sodium chloride 0.9 % (flush) 10 mL (BD POSIFLUSH) 10 mL INTRAVENOUS DIRECTED PRN ALLERGIES No Known Allergies Objective: Patient presents weightbearing as tolerated to right leg. Problem focus examination to the right lower extremity: Incision site is well coapted without evidence of dehiscence. No erythema and no edema surrounding surgical site. No drainage. No lymphadenopathy. No lymphangitis. No surrounding cellulitis. No signs of infection. Patient has no pain to palpation of calf. The calf is soft, supple and nontender without evidence of DVT. Negative Charli's test. Satisfactory alignment is noted. Full muscle strength, +5/5 in DF/PF/IN/EV. No pain with ankle joint ROM. No crepitus with ankle joint ROM. Limited ankle joint DF with osseous block however this is not painful. No pain to palpation of ankle joint. Pedal pulses are palpable. Capillary refill time is less than three seconds to all digits. Sensations are intact to light touch. Assessment: Satisfactory post-operative progress Plan: - The patient was educated on clinical examination findings, postoperative prognosis and protocol. All questions were answered to patient's apparent satisfaction. - Continue WBAT in supportive shoe gear -Activity as dictated by symptoms. - OTC analgesia and voltaren as needed - Work note with no restrictions given today - Continue ASO for ambulatory intensive activity RTC PRN Taye Garcia DPM PGY3 I personally saw and evaluated the patient. I reviewed the resident's note. I agree with the resident's assessment and plan unless otherwise noted. Amarjit Storey DPM, FACFAS documented in this encounter [facility] 11-29-2023 Miscellaneous Notes Spoke with patient and appointment was rescheduled Lizzeth Araujo ----- Message from Vidhi Walton sent at 11/29/2023 12:21 PM EDT ----- Regarding: [id number] Op ankle reschedule Subject Line Format: Orthopedics / [Provider Name or Open & Body Part] / [Issue] Patient has been identified by name and Date of (Y/N): y Patient: Gayle Thompson Date of : 1990 Previous Provider Seen: Cordelia Body Part(s) Identified: r ankle Diagnosis/Reason For Visit: post op Reason for the call/escalation: post op reschedule------- week of December 17 any time for appts If reason for call/escalation is discharge from ED/ER or Hospital, which facility was the patient seen at: n/a Was an appointment scheduled (Y/N): n/a Person calling if other than patient: n/a Return call to if other than patient: n/a Best contact number: [phone] Thank you, Vidhi Walton November 29, 2023 12:21 PM documented in this encounter [facility] 11-13-2023 Miscellaneous Notes Done Thanks Amarjit Storey DPM, CORINNA documented in this encounter [facility] 11-10-2023 Miscellaneous Notes Done Thanks Amarjit Storey DPM, FACFAS Patient called requesting the following refill. Requested Prescriptions Pending Prescriptions Disp Refills meloxicam (MOBIC) 15 mg tablet 30 tablet 3 Sig: Take 1 tablet by mouth once daily. Patients last known Refill Date: 07/16/23 Patient Phone numbers: [phone] (home) Request is for script(s) to be escript to pharmacy. Kortney Tran Chemical Detection Expert Ppg documented in this encounter [facility] 11-08-2023 History of Present illness Narrative DOS: 10/23/2023 POD: 16 Procedure: Removal internal fixation, right tibia Arthrotomy with synovectomy, right ankle Partial excision of bone, right tibia This 33 year old female presents for a post op visit. Patient states they are doing well. Pain is well controlled. Has been icing and elevating the extremity as instructed preoperatively and has been weightbearing as tolerated to the Right lower extremity. Denies any current nausea, vomiting, fever, chills, shortness of breath, chest pain or calf pain. Denies any other pedal complaints PAST MEDICAL HISTORY Diagnosis Date Acute right ankle pain Allergies Asthma as a kid Delayed emergence from general anesthesia Generalized anxiety disorder Hammer toe Migraines Palpitations Plantar fasciitis PONV (postoperative nausea and vomiting) Current Outpatient Medications Medication Sig meloxicam (MOBIC) 15 mg tablet Take 1 tablet by mouth once daily. atenolol (TENORMIN) 25 mg tablet Take 0.5 tablets by mouth once daily as needed. For HR > 100 albuterol HFA (PROVENTIL HFA, VENTOLIN HFA) 90 mcg/actuation inhaler Inhale 2 Puffs as instructed every 4 hours as needed. Current Facility-Administered Medications Medication Dose Route Frequency perflutren lipid microspheres 1.3 mL in NaCl (PF) 0.9% 10 mL injection (DEFINITY) INTRAVENOUS DIRECTED PRN sodium chloride 0.9 % (flush) 10 mL (BD POSIFLUSH) 10 mL INTRAVENOUS DIRECTED PRN ALLERGIES No Known Allergies Objective: Patient presents weightbearing as tolerated to right leg. Problem focus examination to the right lower extremity: Incision site is well coapted without evidence of dehiscence. Mild erythema and edema surrounding surgical site. No drainage. No lymphadenopathy. No lymphangitis. No surrounding cellulitis. No signs of infection. Patient has no pain to palpation of calf. The calf is soft, supple and nontender without evidence of DVT. Negative Charli's test. Satisfactory alignment is noted. Pedal pulses are palpable. Capillary refill time is less than three seconds to all digits. Sensations are intact to light touch. Assessment: Satisfactory post-operative progress Plan: - The patient was educated on clinical examination findings, postoperative prognosis and protocol. All questions were answered to patient's apparent satisfaction. - Bandage removed - Sutures were Removed - Patient to continue weightbearing as tolerated to the operative extremity. - Patient has Lace Up Ankle Brace. Transition to WBAT with lace up ankle brace in 2 weeks. - Return to Work Note Dispensed - Follow up 4 weeks Sivakumar Ramirez PGY 3 I personally saw and evaluated the patient. I reviewed the resident's note. I agree with the resident's assessment and plan unless otherwise noted. Amarjit Storey DPM, FACFAS documented in this encounter [facility] 11-07-2023 Miscellaneous Notes Spoke with patient and moved the appointment to 11/08/23 Lizzeth Araujo ----- Message from Asmita Dubose sent at 11/07/2023 8:07 AM EDT ----- Regarding: Orthopedics/[place] Ankle/Post-Op Within 90-Day Period SOONER APPOINTMENT? Contact: Orthopedics/[place] Ankle/Post-Op Within 90-Day Period SOONER APPOINTMENT? Patient has been identified by name and Date of (Y/N): y Patient: Gayle Thompson Date of : 1990 Previous Provider Seen: Dr Storey Body Part(s) Identified: R ankle Diagnosis/Reason For Visit: has 11/09/23 post-op appt w/ Dr Storey. Wants to know if there is anything available today or tomorrow Reason for the call/escalation: per sched tool If reason for call/escalation is discharge from ED/ER or Hospital, which facility was the patient seen at: n/a Was an appointment scheduled (Y/N): n Person calling if other than patient: n/a Return call to if other than patient: n/a Best contact number: [phone] Thank you, Asmita Dubose November 07, 2023 8:09 AM documented in this encounter [facility] 11-02-2023 Instructions Dunia Bynum DPM - 11/02/2023 10:26 AM EDT Tall cam boot dispensed. Okay to shower and get incision wet Tubigrip and tamiko wrap Follow up for suture removal documented in this encounter [facility] 11-02-2023 History of Present illness Narrative DOS: 10/23/2023 POD: 10 days Procedure: Removal internal fixation, right tibia Arthrotomy with synovectomy, right ankle Partial excision of bone, right tibia This 33 year old female presents for a post op visit. Patient states they are doing well. Pain is well controlled with out any pain meds . Has been icing and elevating the extremity as instructed preoperatively and has been nonweightbearing to the right lower extremity. Denies any current nausea, vomiting, fever, chills, shortness of breath, chest pain or calf pain. Denies any other pedal complaints PAST MEDICAL HISTORY Diagnosis Date Acute right ankle pain Allergies Asthma as a kid Delayed emergence from general anesthesia Generalized anxiety disorder Hammer toe Migraines Palpitations Plantar fasciitis PONV (postoperative nausea and vomiting) Current Outpatient Medications Medication Sig meloxicam (MOBIC) 15 mg tablet Take 1 tablet by mouth once daily. atenolol (TENORMIN) 25 mg tablet Take 0.5 tablets by mouth once daily as needed. For HR > 100 albuterol HFA (PROVENTIL HFA, VENTOLIN HFA) 90 mcg/actuation inhaler Inhale 2 Puffs as instructed every 4 hours as needed. Current Facility-Administered Medications Medication Dose Route Frequency perflutren lipid microspheres 1.3 mL in NaCl (PF) 0.9% 10 mL injection (DEFINITY) INTRAVENOUS DIRECTED PRN sodium chloride 0.9 % (flush) 10 mL (BD POSIFLUSH) 10 mL INTRAVENOUS DIRECTED PRN ALLERGIES No Known Allergies Objective: Patient presents nonweightbearing to right leg. Dressing is dry, clean, and intact with mild strike through noted. Problem focus examination to the right lower extremity: Incision site is well coapted without evidence of dehiscence. Mild erythema and edema surrounding surgical site. No drainage. No lymphadenopathy. No lymphangitis. No surrounding cellulitis. No signs of infection. Patient has no pain to palpation of calf. The calf is soft, supple and nontender without evidence of DVT. Negative Charli's test. Satisfactory alignment is noted. Pedal pulses are palpable. Capillary refill time is less than three seconds to all digits. Sensations are intact to light touch. Assessment: Satisfactory post-operative progress Plan: The patient was educated on clinical examination findings, postoperative prognosis and protocol. All questions were answered to patient's apparent satisfaction. - Bandage removed and new dressing applied. - Sutures were left intact at today's visit - Patient to continue nonweightbearing to the operative extremity in tall boot. - Dispensed and fitted Tall CAM boot. Follow up in 1 week for suture removal. Dunia Bynum DPM PGY-3 I personally saw and evaluated the patient. I reviewed the resident's note. I agree with the resident's assessment and plan unless otherwise noted. Amarjit Storey DPM, FACFAS documented in this encounter [facility] 10-26-2023 History of Present illness Narrative Subjective Patient ID: Gayle Thompson is a 33 y.o. female who presents for Gynecologic Exam (Patient is here for a yearly exam. Patient has no concerns today. LMP: ABLATION 08/2023). Gynecologic Exam Pt. Presents for annual exam. S/p uterine ablation. Last pap in [place] a few years ago no hx of abnl pap per pt. Cervicitis noted at ablation. Pt. Reports she was instructed to take antibiotics at that time and completed the course. Pt. Denies potential exposure to STI or any sx of vaginal infection. Had testing for GC/CT and trichomonas prior to surgery. Pt. Declines breast exam today, denies any other complaints or concerns, recovering from foot surgery Review of Systems Constitutional: Negative. Respiratory: Negative. Genitourinary: Negative. Psychiatric/Behavioral: Negative. Objective Physical Exam Constitutional: Appearance: Normal appearance. Pulmonary: Effort: Pulmonary effort is normal. Genitourinary: General: Normal vulva. Comments: Normal exam. Pap obtained Neurological: General: No focal deficit present. Mental Status: She is alert and oriented to person, place, and time. Psychiatric: Mood and Affect: Mood normal. Behavior: Behavior normal. Assessment/Plan BETTY Pace, NATE CR 10/26/23 9:35 AM documented in this encounter [facility] Work Phone: 10-19-2023 Miscellaneous Notes Patient called back and confirmed she got the surgery information Lizzeth Araujo Called and left message to confirm surgery for 10.23.23 at 1030am arriving at 830am NPO midnight bring crutches or knee walker day of surgery Lizzeth Araujo documented in this encounter [facility] 10-17-2023 History and physical note Images from the original note were not included. HISTORY AND PHYSICAL EXAMINATION SERVICE DATE: 10/16/2023 SERVICE TIME: 10:00am PRIMARY CARE PHYSICIAN: Noelle Blanc APRN.RIN Assessment Patient has the following medical conditions which may affect lynn-operative course: Pain due to bone fixation device (HCC) Procedure scheduled for 10/23/23 Post-traumatic arthritis of ankle Procedure scheduled for 10/23/23 Pre-op examination See note for medical conditions which may affect lynn-operative course that were addressed at today's visit. Class 2 obesity without serious comorbidity with body mass index (BMI) of 36.0 to 36.9 in adult BMI around 36 Palpitations See PSVT. Have reduced in frequency since starting atenolol PSVT (paroxysmal supraventricular tachycardia) Patient seen by Cardiology - Dr. Cadet. VAMSI 08/23/23. Origionally worked up for palpitations. On atenolol prn Per Dr. Cadet: The patient and I discussed her heart rates extensively and she definitely has a very labile heart rate that is easily provocable to sinus tachycardia for various reasons. I agree with the atenolol at 12.5 mg daily but did state that she can start and stop this medication or increasing the doses on an as-needed basis depending on the situation... No further cardiac testing is warranted at this time. Denies CP and SOB at this time. Wore event monitor that was WNL -reviewed by cardiology. EKG 03/28/23: ECHO from 04/18/23: WNL NOTE asthma history: has albuterol rescue inhaler that she uses roughly 3-4 times per year. Carter Activity Status Index: METS: Participate in moderate recreational activites, such as golf, bowling, dancing, doubles tennis, or throwing a baseball or football (6.00 METs) DASI Score: 6 [id number] Score: [id number] Score: 0 ARISCAT Score: Age: <=50 Preoperative SpO2: >=96% Respiratory infection in the last month: No Preoperative anemia: No Surgical incision: peripheral Duration of surgery: <2 hrs Emergency procedure: No ARISCAT Score: 0 ANESTHESIA FINDINGS: Intubation History: No history of difficult intubation Significant Anesthesia Considerations: potential postop nausea/vomiting potential slow emergence Airway History: No history of difficult airway I - PHYSICAL EVALUATION AIRWAY Patient intubated: No. DENTAL Dental findings: teeth intact. II - ANESTHESIA PLAN Anesthetic Plan: general Beta Adán Monitoring Plan Post Procedure Analgesic Plan Prepared for Surgery: CONSULTS: Patient does not require consults for optimization at this time Planned Anesthetic: general The Following Tests/Procedures Have Been Initiated: No orders of the defined types were placed in this encounter. REASON FOR VISIT: Gayle Thompson is a 33 year old female who is scheduled for Procedure(s) with comments: REMOVAL HARDWARE ANKLE (Right) - POPLITEAL BLOCK ARTHROTOMY ANKLE W/ SYNOVECTOMY AND TENOSYNOVECTOMY (Right) at the request of @[email or web address]@ for routine H&P. My final recommendation will be communicated back to the requesting physician by way of shared medical record or letter. Subjective The patient has the following: ACTIVE PROBLEM LIST Unspecified Acquired Deformity of Toe Hammer Toe Toe Pain Right Knee Pain Plantar Fasciitis of Right Foot Urticaria Class 2 Obesity Without Serious Comorbidity With Body Mass Index (Bmi) of 36.0 to 36.9 in Adult Cystic Acne Hyperhidrosis Anxiety Difficulty Concentrating Closed Fracture of Distal End of Right Fibula Concussion Without Loss of Consciousness Ptsd (Post-Traumatic Stress Disorder) Palpitations Dizziness Daytime Sleepiness Psvt (Paroxysmal Supraventricular Tachycardia) (Hcc) Sinus Bradycardia Pre-Op Examination Unable to Lose Weight Pain Due to Bone Fixation Device (Hcc) Post-Traumatic Arthritis of Ankle COVID-19 Immunization Status Overdue - Covid-19 Vaccine ( season) Overdue since 04/21/2023 09/16/2020 Imm Admin: COVID-19 original vaccine, full dose, monovalent (MODERNA) 08/19/2020 Imm Admin: COVID-19 original vaccine, full dose, monovalent (MODERNA) CHIEF COMPLAINT: The reason for this visit is to perform a comprehensive review of the patient's past medical history, assess their current health status and obtain any additional testing required based on anesthesia guidelines. We will also identify any potential anesthesia problems or contraindications to the planned procedure. HPI: Patient is presenting to PAT today prior to above listed procedure scheduled. Patient is a 33 year old female following with podiatry. Had surgery 07/27/2021 - 1. ORIF tibial pilon fracture, right LE 2. Closed treatment distal fibula frature, right LE 3. Removal External fixator, right LE She continues to have significant right ankle pain post operatively. Pain is around 5/10 and is worse in the morning. Denies N/T in foot. Patient has discussed upcoming procedure with the surgical team and plans to proceed as scheduled. REVIEW OF SYSTEMS: General: Negative for: unintentional weight change and fever. Neurological: Positive for: headaches (h/o migraines.). Negative for: dementia, multiple sclerosis, seizures and strokes. Respiratory: Positive for: asthma. Negative for: COPD, pneumonia within 6 weeks, tobacco use, URI < 2 weeks and obstructive sleep apnea. Cardiovascular: Positive for: arrhythmia (PSVT) Negative for: atrial fibrillation, CAD, chest pain, DVT/PE, hyperlipidemia and murmur/valvular heart disease. GI: Negative for: abdominal pain, dysphagia, GERD, nausea and vomiting. : Negative for: dysuria, frequent urination, hematuria, renal failure and urinary tract infection. 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 Negative for abnormal vaginal bleeding, abnormal vaginal discharge. Endocrine: Negative for: diabetes mellitus, hyperthyroidism and hypothyroidism. Hematology: Negative for: anemia, factor V Leiden and von Willebrand disease. Oncology: No history of CA metastasis, chemo within 30 days, or radiotherapy within 90 days. No history of oncological symptoms or problems. Psych: Positive for: anxiety. Negative for: depression. Musculoskeletal: See HPI. Skin: Negative for lesions, rash and itching. PAST MEDICAL HISTORY Diagnosis Date Acute right ankle pain Allergies Asthma as a kid Generalized anxiety disorder Hammer toe Migraines Palpitations Plantar fasciitis PAST SURGICAL HISTORY Procedure Laterality Date ANKLE SURGERY HX Right 07/27/2021 APPLICATION UNIPLANE EXTERNAL FIXATION SYSTEM Left 07/18/2021 CLTX FX W8 BRG ARTCLR PRTN DSTL TIB W/SKEL TRACJ Left 07/18/2021 CORRECTION HAMMERTOE Right 2010, 2013 EXTRACTION ERUPTED TOOTH 2016 wisdom teeth PROCEDURE pins in big toes 2010 PT ED OBSTETRICS & GYNECOLOGY 08/2023 SALPINGECTOMY COMPLETE/PARTIAL UNI/BI SPX 2020 FAMILY HISTORY Problem Relation Age of Onset other (Circulation problems) Mother other (High Blood Pressure) Mother other (fibromyalgia) Mother Hypertension Mother Cancer Mother cervical cancer Allergies Mother Bee venom, seasonal Depression Mother Anxiety disorder Mother Migraines Mother Thyroid Mother ADD/ADHD Father Migraines Sister Anxiety disorder Sister Depression Sister Asthma Sister Obesity Sister Thyroid Sister other (Gallbladder) Sister Asthma Brother Alzheimer's Disease Brother Diabetes Brother Cancer Maternal Grandmother Arthritis Maternal Grandmother COPD Maternal Grandmother other (ibs) Maternal Grandfather Obesity Paternal Grandmother other (colitis) Paternal Grandmother other (GERD) Daughter ADD/ADHD Son Allergies Son several other (gerd) Son Colon Cancer Other Social History Tobacco Use Smoking status: Never Smokeless tobacco: Never Vaping Use Vaping Use: Never used Substance Use Topics Alcohol use: Yes Comment: occ. Drug use: Never Prior to Admission medications as of 10/17/23 1012 Medication Sig Last Dose Taking meloxicam (MOBIC) 15 mg tablet Take 1 tablet by mouth once daily. atenolol (TENORMIN) 25 mg tablet Take 0.5 tablets by mouth once daily as needed. For HR > 100 albuterol HFA (PROVENTIL HFA, VENTOLIN HFA) 90 mcg/actuation inhaler Inhale 2 Puffs as instructed every 4 hours as needed. No medication comments found. ALLERGIES No Known Allergies Objective PHYSICAL EXAM: General: alert and oriented. Pertinent negatives noted - not distressed. Skin: normal color, no rash or lesions. HEENT: Cardiovascular: regular rate and rhythm, normal S1 and S2, no rub, murmurs, or gallop. Pulse characterized as regular. Respiratory: normal breath sounds, no wheezes or crackles. No chest wall deformity or tenderness. Abdomen: bowel sounds present and tender. Extremities: no deformity, no edema or tenderness, no joint swelling or clubbing. Neurological: normal cognition and motor skills. Gait normal. No weakness or sensory deficit. PAIN ASSESSMENT: Pain Pain Level: 5 VITALS: BP 109/84 Pulse 74 Temp 99.1 Resp 16 Ht 5' 8 (1.73m) Wt 234 lb (106.1kg) SpO2 98% BMI 35.59 kg/(m^2). Diagnostic tests reviewed for today's visit: Lab Value Units Date High Low HB No results within date range. HCT No results within date range. WBC No results within date range. PLT No results within date range. NA No results within date range. K No results within date range. GLUC No results within date range. BUN No results within date range. CREAT No results within date range. PTSEC No results within date range. INR No results within date range. APTT No results within date range. ALT No results within date range. AST No results within date range. TBILI No results within date range. TSH No results within date range. Lab Value Units Date High Low HCGQT No results within date range. UHCG No results within date range. HCG, BODY* No results within date range. Lab Value Units Date High Low ABORHD No results within date range. ABSCREEN No results within date range. No results found for: HBA1C Recent Results (from the past 8760 hour(s)) ECG COMPLETE Collection Time: 03/28/23 2:42 PM Result Value Ventricular Rate 68 Atrial Rate 68 P-R Interval 140 QRS Duration 76 QT Interval 400 QTC Calculation (Bazett) 425 Calculated P [place] 37 Calculated R [place] 19 Calculated T [place] 18 Impression NORMAL SINUS RHYTHM WITH SINUS ARRHYTHMIA NORMAL ECG NO PREVIOUS ECGS AVAILABLE Confirmed by MD JEREMY, JUAN ALBERTO ([id number]) on 03/30/2023 2:43:42 PM Recent Results (from the past 14911 hour(s)) ECHO Collection Time: 04/18/23 10:11 AM Impression CONCLUSIONS: - Exam indication: Palpitations - The left ventricle is normal in size. There is no left ventricular hypertrophy. Left ventricular systolic function is hyperdynamic. EF = 74 5% (2D biplane) Normal left ventricular diastolic function. - The right ventricle is normal in size. Right ventricular systolic function is normal. Tricuspid annular displacement is 2.6 cm. - There are no significant valvular abnormalities. - The patient has not had a prior CC echocardiographic exam for comparison. * * * Final * * * Instructions Given to Patient: Instructions located in the after visit summary. Patient given verbal and written preop instructions and voices comprehension and compliance. Implantable Devices: Right ankle, right big toe, left toe The Following Tests/Procedures Have Been Initiated: NONE per surgeon in EPIC Assessment/Plan Pain due to bone fixation device, initial encounter ([facility]) [T84.84XA] Post-traumatic arthritis of ankle, right [M19.171] PLAN Diagnosis: Planned Procedure: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 a complication requiring transfusion or operation were discussed with the patient. The patient concurred with the proposed plan, giving informed consent. The site of surgery was properly noted/marked if necessary per policy. The patient has been actively warmed in preoperative area. Preopera tive antibiotics None; patient tolerated the procedure well. Venous thrombosis prophylaxis have been ordered including bilateral sequential compression devices Procedure Details: After the procedure risk benefits and alternatives were discussed with the patient she verbalized understanding and written consent was obtained in the office. On the day of surgery she was taken to the operating room and placed under IV sedation. She was then prepped and draped in the usual sterile fashion in the dorsolithotomy position. A bivalve speculum was placed into the patient's vagina the cervix was visualized and appeared extremely friable the anterior lip of the cervix was grasped with a single-tooth tenaculum. The cervix was then serially dilated until hysteroscope could be introduced once the hysteroscope was introduced we visualized the endometrial cavity there were no obvious polyps fibroids or other lesions. We remove the hysteroscope and performed a sharp curettage of the entire endometrial cavity. Once this was completed the NovaSure device was inserted into the uterus to a length of 6 cm and a width of 3.3 cm. We confirmed a good vacuum and activated the device. Once the ablation was completed the NovaSure was removed from the patient's uterus. The hysteroscope was reintroduced and pictures were taken confirming a complete ablation of the cavity. The hysteroscope was then removed and the cervix again was quite friable at times to cauterize the bleeding sites were somewhat successful but at the 12:00 she continued to bleed a fair amount andtherefore the this required a [id number] stitch. Once that was that was performed with 0 Vicryl the bleeding was minimal and all instruments were removed from the patient's cervix and vagina. Patient tolerated the procedure well. Sponge lap and needle count were correct x 3 and the patient wasawakened and taken to the recovery room in stable condition this ends the dictation for the Cristofer Complications: None; patient tolerated the procedure well. Disposition: PACU - hemodynamically stable. Condition: stable Additional Details: Attending Attestation: Maria D Ortega [facility] Work Phone: 1(232) 838-281901-11-2024 History and physical note* Maria D Ortega MD - 08/31/2023 12:24 PM EST History Of Present Illness Gayle Thompson is a 33 y.o. female presenting with history of menorrhagia presenting for hysteroscopy and endometrial ablation. Past Medical History Past Medical History: Diagnosis Date Anxiety Asthma Tachycardia Surgical History Past Surgical History: Procedure Laterality Date ANKLE SURGERY FOOT SURGERY MOUTH SURGERY TUBAL LIGATION Social History She reports that she has never smoked. She has never used smokeless tobacco. She reports that she does not currently use alcohol. She reports that she does not use drugs. Family History Family History Problem Relation Name Age of Onset Hypertension Mother Cervical cancer Mother Migraines Mother No Known Problems Father Allergies Patient has no known allergies. Review of Systems Physical Exam Pleasant sitting in bed comfortably Lungs clear to auscultation Heart regular rate and rhythm Abdomen nontender Extremities good mobility Psych appropriately oriented Last Recorded Vitals Temperature 36.2 C (97.2 F), temperature source Temporal, height 1.727 m (5' 8), weight 106 kg (233 lb 11 oz), last menstrual period 08/21/2023, SpO2 96 %. Relevant Results Assessment/Plan Principal Problem: Menorrhagia with irregular cycle Patient with a history of menorrhagia for hysteroscopy endometrial ablation. I spent 5 minutes in the professional and overall care of this patient. Maria D Ortega MD [facility] Work Phone: 1(223) 549-678401-11-2024 History and physical note* Maria D Ortega MD - 08/31/2023 12:24 PM EST History Of Present Illness Gayle Thompson is a 33 y.o. female presenting with history of menorrhagia presenting for hysteroscopy and endometrial ablation. Past Medical History Past Medical History: Diagnosis Date Anxiety Asthma Tachycardia Surgical History Past Surgical History: Procedure Laterality Date ANKLE SURGERY FOOT SURGERY MOUTH SURGERY TUBAL LIGATION Social History She reports that she has never smoked. She has never used smokeless tobacco. She reports that she does not currently use alcohol. She reports that she does not use drugs. Family History Family History Problem Relation Name Age of Onset Hypertension Mother Cervical cancer Mother Migraines Mother No Known Problems Father Allergies Patient has no known allergies. Review of Systems Physical Exam Pleasant sitting in bed comfortably Lungs clear to auscultation Heart regular rate and rhythm Abdomen nontender Extremities good mobility Psych appropriately oriented Last Recorded Vitals Temperature 36.2 C (97.2 F), temperature source Temporal, height 1.727 m (5' 8), weight 106 kg (233 lb 11 oz), last menstrual period 08/21/2023, SpO2 96 %. Relevant Results Assessment/Plan Principal Problem: Menorrhagia with irregular cycle Patient with a history of menorrhagia for hysteroscopy endometrial ablation. I spent 5 minutes in the professional and overall care of this patient. Maria D Ortega MD [facility] Work Phone: [phone] 140-217301-10-2024 Note* Preprocedure Instructions - Kaelyn Unger RN - 08/30/2023 9:07 AM EST No outpatient medications have been marked as taking for the 08/31/23 encounter (Hospital Encounter). NPO Instructions: Nothing to eat or drink after midnight Additional Instructions: Will need residential driver home, arrive on 2nd floor at hospital at 1130am on August 30 [facility] Work Phone: 1(969) 793-687701-03-2024 NoteHNO ID: [id number] Author: Edis Cadet, DO Service: ? Author Type: Physician Type: Progress Notes Filed: 08/23/2023 12:46 PM Note Text: [facility] Department of Cardiovascular Medicine SECTION OF [facility] OUTPATIENT VISIT DATE August 23, 2023 OUTPATIENT VISIT TYPE NEW PATIENT Name: Gayle Thompson : 1990 Date: August 23, 2023 PRIMARY CARE PHYSICIAN: Noelle Blanc [address] [place] [id number] REFERRING PHYSICIAN: Noelle Blanc [address] [place] [id number] CHIEF COMPLAINT: Patient presents with: CARD New Patient Consult: Consult to Cardio - Queden - 04/07/23 - Palpitations [facility] 03/28/23 - Palpitations since 12/2022 HR can jump 41-192 range (on her Apple watch) Fatigue and dizziness Holter 03/28-03/31/23 C/O palpitations daily up to 2 mins per episode. Exhausted all the time. Like to sims and at times HR will be go up to 100 BPM while sitting in the bee. IMPRESSION / PLAN: 1. Paroxysmal supraventricular tachycardia with intermittent sinus tachycardia and sinus bradycardia. The patient and I discussed her heart rates extensively and she definitely has a very labile heart rate that is easily provocable to sinus tachycardia for various reasons. I agree with the atenolol at 12.5 mg daily but did state that she can start and stop this medication or increasing the doses on an as-needed basis depending on the situation. She had outpatient evaluation with 3-day event recording which was normal with the highest sinus rate in the 150s with activity and no significant bradycardia with a minimum heart rate of 54 bpm. Echocardiogram performed on April 18, 2023 was normal. She did have an episode of a documented apparent increase in heart rate into the 190s during exertional activity but spontaneously resolved. These type episodes do not appear to be occurring at rest. She has virtually eliminated caffeine from her diet. No further cardiac testing is warranted at this time. 2. History of vasovagal near syncope. 3. Fatigue. Patient has a borderline sleep disturbance but no significant sleep apnea and feel that her current heart rate issues are not playing a role in his fatigue. 4. History of excessive uterine bleeding and iron deficiency anemia. I did state that her hormone imbalances certainly could be playing a role in exacerbating her arrhythmias and is being followed closely by [facility]. She has no evidence of iron deficiency anemia at this time. 5. History of migraine headaches with recent exacerbation. Patient is scheduled to see neurology in the near future. Follow Up Instructions Return for As Needed. ORDERS FOR TODAY'S VISIT: Office Visit on 08/23/23 CONSULT TO CARDIOLOGY HISTORY OF PRESENT ILLNESS: Gayle Thompson is an 33 year old female with a past history of migraine headaches with recent exacerbation over the last year, generalized fatigue who had noticed some increasing heart rates that were abnormal for her with 1 episode of increase into the 190s while running which was a rapid increase from the 140s and 150s. She has also noticed heart rates in the 40s associated with some fatigue. She has noticed at times her resting heart rate while sitting in the bee hunting in the low 100s. She had 1 episode of near syncope that occurred at a public place while eating and drinking. She otherwise reports no exertional chest pain, shortness of breath. PAST MEDICAL HISTORY Diagnosis Date Acute right ankle pain Allergies Asthma as a kid Generalized anxiety disorder Hammer toe Migraines Palpitations Plantar fasciitis PAST SURGICAL HISTORY Procedure Laterality Date ANKLE SURGERY HX Right 07/27/2021 APPLICATION UNIPLANE EXTERNAL FIXATION SYSTEM Left 07/18/2021 CLTX FX W8 BRG ARTCLR PRTN DSTL TIB W/SKEL TRACJ Left 07/18/2021 CORRECTION HAMMERTOE Right 2013 EXTRACTION ERUPTED TOOTH 2016 wisdom teeth PROCEDURE pins in big toes 2010 SALPINGECTOMY COMPLETE/PARTIAL UNI/BI SPX 2020 SOCIAL HISTORY Social History Tobacco Use Smoking status: Never Smokeless tobacco: Never Vaping Use Vaping Use: Never used Substance Use Topics Alcohol use: Yes Comment: occ. Drug use: No FAMILY HISTORY Problem Relation Age of Onset other (Circulation problems) Mother other (High Blood Pressure) Mother other (fibromyalgia) Mother Hypertension Mother Cancer Mother cervical cancer Allergies Mother Bee venom, seasonal Depression Mother Anxiety disorder Mother Migraines Mother Thyroid Mother ADD/ADHD Father Migraines Sister Anxiety disorder Sister Depression Sister Asthma Sister Obesity Sister Thyroid Sister other (Gallbladder) Sister Asthma Brother Alzheimer's Disease Brother Diabetes Brother Cancer Maternal Grandmother Arthritis (more content not included)...[facility]12-08-2023 History of Present illness Narrative* Maria D Ortega MD - 07/28/2023 9:00 AM EST Subjective Patient ID: Gayle Thompson is a 32 y.o. female who presents for Pre-op Visit (Patient is here today for a pre- op exam for an Ablation and to also have an endometrial Biopsy done in office. ). HPI Gayle is a 32-year-old woman who has a history of menorrhagia and desires to pursue an endometrial ablation. She is here for an endometrial biopsy and preop Review of Systems Noncontributory Objective Physical Exam .vi Pleasant healthy appearing in no distress Pittore breathing comfortably Cardiovascular good perfusion Abdomen soft nontender External genitalia revealed no lesions the vagina was well estrogenized uterus was normal size nontender Remedies good mobility Patient was placed in the dorsolithotomy position. A bivalve speculum was placed in the vagina. Thecervix was visualized and cleaned with Betadine x 3. The anterior lip of the cervix was grasped with a single-tooth tenaculum with a uterine dilator we identified the endometrial cavity. We then made2 passes with an endometrial Pipelle and retrieved tissue. All instruments were then removed from the uterus cervix and vagina. The patient tolerated the procedure well. Assessment/Plan Gayle is a 32-year-old who comes in for a preop for an endometrial ablation secondary to menorrhagia. Endometrial biopsy was done. We discussed the procedure risk benefits and alternatives she verbalized understanding and consent was obtained. Preoperatively she will do blood work Maria D Ortega MD 07/28/23 9:44 AM documented in this [facility] Work Phone: [phone]) 350-683711-28-2023 History of Present illness Narrative* Maria D Ortega MD - 07/18/2023 2:15 PM EST Subjective Patient ID: Gayle Thompson is a 32 y.o. female who presents for Results (Patient is here to discuss Ultrasound Results. ). HPI Gayle is a 32-year-old who comes in to discuss her results for irregular bleeding that is usuallyprecipitated with coitus. She reports that she has bleeding when she is on her menstrual cycle but then when she engages in intercourse we will start bleeding again for several days. She is here to di scuss the results of her workup which included cultures and an ultrasound. Reports that she has continued over the last month with the same type of bleeding pattern. She has undergone a bilateral salpingectomy Objective Physical Exam Pleasant in no acute distress Breathing comfortably Extremities good mobility Psych appropriately oriented Assessment/Plan Gayle is a 32-year-old who comes in to discuss the results of her workup that was done for irregular bleeding precipitated many times by sex. Workup is completely unremarkable. Discussed with the patient the options of pursuing an endometrial ablation versus considering a vaginal hysterectomy with preservation of the ovaries. At this point with work patient does not have enough PTO to schedule major surgery and therefore wishes to pursue an ablation. She desires to return for preop and an endometrial biopsy. [facility] Work Phone: [phone]) 333-659111-26-2023 Miscellaneous Notes* Telephone Encounter - Amarjit Storey DPM - 07/16/2023 9:26 AM EST Done Thanks Amarjit Storey DPM, FACFAS [facility] Miscellaneous Notes* Telephone Encounter - Lyle Bailey MA - 07/12/2023 9:35 AM EST pt requesting refills: Last office visit 05/15/2023. Last refill 05/29/2023 nov 08/17/2023 Requested Prescriptions Pending Prescriptions Disp Refills busPIRone (BUSPAR) 5 mg tablet 90 tablet 0 Sig: Take 1 tablet by mouth three times a day as needed. Please review and advise. Lyle Bailey MA [facility] Miscellaneous Notes* Result Encounter Note - Maria D Ortega MD - 07/04/2023 12:45 PM EST Frank Araujo has a follow-up appointment to discuss her results [facility] Work Phone: [phone]) 654-167411-14-2023 Progress note* Result Encounter Note - Maria D Ortega MD - 07/04/2023 12:45 PM EST Frank Araujo has a follow-up appointment to discuss her results [facility] Work Phone: [phone]) 436-920011-13-2023 History of Present illness Narrative* Maria D Ortega MD - 07/03/2023 11:00 AM EST Subjective Patient ID: Gayle Thompson is a 32 y.o. female who presents for Abnormal bleeding. DAHIANA Araujo is a 32-year-old patient who comes in because of several months of postcoital bleeding. Shereports some small amount of discharge. She says the last time she saw a mobile sales assistant was approximately a year ago in [place] but that physician has since left Objective Physical Exam 09/02/2020 12:45 PM Vitals Systolic 122 Diastolic 83 Heart Rate 93 Temp 36.5 C (97.7 F) Resp 18 Height (in) 1.651 m (5' 5) Weight (lb) 130 BMI 21.63 kg/m2 BSA (m2) 1.64 m2 Healthy appearing in no acute distress Respiratory breathing comfortably External genitalia revealed no lesions the vagina was well estrogenized the cervix was slightly friable Extremities good mobility Wet mount negative trichomoniasis negative clue cells negative yeast Assessment/Plan Gayle comes in for evaluation of irregular bleeding and postcoital bleeding. Wet mount with unremarkable we will send a full set of cultures and we will also get an ultrasound documented in this [facility] Work Phone: [phone]) 166-738610-08-2023 History of Present illness Narrative* Amarjit Storey, ALLY - 05/28/2023 12:40 PM EDT DOS: 07/27/2021 Procedure: 1. ORIF tibial pilon fracture, right LE 2. Closed treatment distal fibula frature, right LE 3. Removal External fixator, right LE This 32 year old female presents for a post op visit. She is still having significant pain to her left right ankle. She states that she has been wearing the lace up brace. She says her pain is 5/10 and is more painful first thing in the morning. She is interested in scheduling left ankle hardware removal surgery today. She was also previously having pain to her right hallux toenail and had discussed nail avulsion however she states that pain is improved today. Denies any current nausea, vomiting, fever, chills, shortness of breath, chest pain or calf pain. Denies any other pedal complaints. PAST MEDICAL HISTORY Diagnosis Date Acute right ankle pain Allergies Asthma as a kid Generalized anxiety disorder Hammer toe Migraines Plantar fasciitis Current Outpatient Medications Medication Sig venlafaxine ER (EFFEXOR XR) 37.5 mg 24 hr capsule Take 1 capsule by mouth as directed. Take 1 capsule daily for 7 days and then every other day for 1 week and then stop. [START ON 05/29/2023] busPIRone (BUSPAR) 5 mg tablet Take 1 tablet by mouth three times a day as needed. meloxicam (MOBIC) 15 mg tablet Take 1 tablet by mouth once daily. atenolol (TENORMIN) 25 mg tablet Take 0.5 tablets by mouth once daily as needed. For HR > 100 predniSONE (DELTASONE) 10 mg tablet Take 1 tablet by mouth once daily. Take 1 tablet by mouth once daily as needed. albuterol HFA (PROVENTIL HFA, VENTOLIN HFA) 90 mcg/actuation inhaler Inhale 2 Puffs as instructed every 4 hours as needed. Current Facility-Administered Medications Medication Dose Route Frequency perflutren lipid microspheres 1.3 mL in NaCl (PF) 0.9% 10 mL injection (DEFINITY) INTRAVENOUS DIRECTED PRN sodium chloride 0.9 % (flush) 10 mL (BD POSIFLUSH) 10 mL INTRAVENOUS DIRECTED PRN ALLERGIES No Known Allergies Objective: Patient presents weightbearing as tolerated to right leg. Problem focus examination to the right lower extremity: Incision site is well coapted without evidence of dehiscence. No erythema. Mild edema surrounding surgical site. No drainage. No lymphadenopathy. No lymphangitis. No surrounding cellulitis. No signs of infection. She is able to flex her foot to 90 degrees but with pain. Ankle joint range of motion is decreased with pain noted right foot. Pain is worse with maximal dorsiflexion. Crepitus is noted.The point of maximal tenderness on palpation is to the Central aspect of the ankle joint. Pain noted to palpation of medial ankle gutter. pain noted to palpation of lateral ankle gutter. There is no pain noted at the subtalar joint or with range of motion of the subtalar joint. No pain noted with external rotation of the foot relative to the leg. Patient has no pain to palpation of calf. The calf is soft, supple and nontender without evidence of DVT. Negative Charli's test. Satisfactory alignment is noted. Pedal pulses are palpable. Capillary refill time is less than three seconds to all digits. Sensations are intact to light touch. Radiographs: 10/27/22: right ankle radiographs (three views: AP/MO/lateral; weight-bearing) were performed and examined today. Personal radiographic evaluation: Status post ORIF pilon fracture. Alignment maintained. Fracture line within the distal fibula and tibia appears healed. Hardware in normal position without evidence of failure or loosening. No acute destructive changes. Joint space narrowing noted in the ankle consistent with arthritic changes. Last CT Ankle - Impression Only CT ANKLE WO IVCON RT Exam End: 07/18/2021 3:17 PM (Final result) Impression: IMPRESSION: Distal tibial and fibular fractures as discussed. Plumbing Designer: GER Transcribe Date/Time: Jul 18 2021 3:32P Dictated by : MEIR REES MD... 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 All questions were answered to patient's apparent satisfaction. A comprehensive history and physical examination were preformed. The patient was educated on clinical and radiographic findings, diagnosis and treatment plans. Patient states that she understands allthat has been explained and all questions were answered to her apparent satisfaction. Educated patient on conservative and surgical treatment options. The patient understands all explained to her and would like to proceed with surgical intervention. I've recommended Removal of internal fixation, right ankle. Patient was educated on the details of the procedures as well as medically reasonable risks, benefits, alternatives and prognosis. Patient was also educated on perioperative management including preoperative medical clearance, preoperative physical therapy consultation, postoperative care and rehabi litation, anticipated time to full weightbearing, return to shoes and maximum medical improvement. Lastly patient was educated to their apparent understanding on potential complications including butnot limited to infection, recurrence, over correction or under correction, persistent pain, swelling or disability, nerve injury or entrapment, bone and soft tissue healing complications, complications with anesthesia and deep vein thrombosis or pulmonary embolism. All questions were answered to the patient s apparent satisfaction. No guarantees were given as to the outcome of the surgery. Medical clearance pending and surgical scheduling to follow. Rei Cisneros DPM PGY-3 Total patient care time w/ pt was at least 45 minutes w/ at least 50% of the time spent reviewing the results of the recent imaging including (MRI,CT,EMG/NCV) counseling the pt on treatment options and coordinating their care. I personally saw and evaluated the patient. I reviewed the resident's note. I agree with the resident's assessment and plan unless otherwise noted. Amarjit Storey DPM, FACFAS documented [facility]09[facility] History of Present illness Narrative* Noelle Blanc, TRAVIS.[facility] - 05/15/2023 1:46 PM EDT CHIEF COMPLAINT: Gayle Thompson is a 32 year old female who presents for 4 week f/u for palpitations. I reviewed past medical, surgical, social, and family histories today and updated chart. Allergies, chronic medications, and supplements were also reviewed. She reports they are still occurring frequently and hasn't noticed much improvement. Continues to have frequent palpitations, occurs randomly Hasn't been able to identify as specific trigger She doesn't smoke, drink alcohol, or caffeine She was prescribed low dose Atenolol if HR> 100 She has taken a few doses but it makes her really fatigued Last dose of Monday on 05/07 HR still ranging from 41 (2:40 pm)-188 (running) Was running in a race and it took awhile for her HR to come back down, stayed in 130's for at leastan hour Doesn't have an appointment with cardiology until August Continues to have right ankle pain, takes Prednisone prn Ear pain started yesterday In house sleep study scheduled for [facility] HSAT was inconclusive Home Sleep Apnea Test (HSAT) Study Report Name: GAYLE THOMPSON Date of Study: 04/28/2023 [facility]#: [id number] Age: 32 (: 1990) ESS: -- Neck Circ. (cm):-- Height (cm): 172.7 Weight (kg): 106.1 BMI: 35.6 Referring Provider: NOELLE BLANC Mailcode: [facility] Sleep history: The patient is a 32 year old female is here for assessment of obstructive sleep apnea. The patient does not endorse a habitual sleep position. Pertinent medical history: Allergies, Anxiety, Asthma, Obesity, Migraines Medications: Tenormin, Deltasone, Effexor XR, Proventil HFA Sleep procedure: PSG unattended Type III, minimum of 4 parameters (77861) Procedure: This study was performed using a Type III ambulatory PSG device and was unattended. The patient was instructed on proper use of the device by a registered diagnostic technologist. The monitored parameters included heart rate, oxygen saturation, continuous airflow with thermistor and nasal pressure transducer, snoring via nasal pressure transducer, chest and abdominal effort, and body position. PRAKASH definition: Respiratory event index (PRAKASH), calculated as respiratory events x 60 / TRT (total recording time in minutes). Note: the apnea hypopnea index has been replaced by the respiratory event index for home sleep apnea test. Since the home sleep apnea test does not measure sleep, the PRAKASH is most accurate index of respiratory events. The PRAKASH is a surrogate of the AHI per the AASM Manual for Scoring of Sleep and Associated Events version 2.6. Apnea definition: The peak signal excursions drop by >90% of pre-event baseline using an oronasal thermal sensor (diagnostic study), PAP device flow (titration study) or an alternative apnea sensor (diagnostic study). The duration of the >90% drop in signal excursion is >=10 seconds. Hypopnea definition: The peak signal excursions drop by >= 30% of pre-event baseline using nasal pressure (diagnostic study), PAP device flow (titration study) or an alternative hypopnea sensor (diagnostic study). The duration of the >= 30% drop in signal excursion is >=10 seconds. There is a greater than or equal to 4% oxygen desaturation from pre-event baseline. RESPIRATORY DATA: The study started at 00:57:31 and ended at 07:08:47 and the total recording time was 371 minutes. By convention, sleep is assumed for the whole recording. Snoring was noted. There was a total of 8 respiratory events. Of these events, the total number of apneas was 0 (0 obstructive, 0 mixed, and 0 central (0.0%)) and 8 hypopneas. The respiratory event index (PRAKASH) was 1.3 events per hour of study time. The mean oxygen saturation during the study was 96.0%, with a minimum oxygen saturation of 91.0%. Time PRAKASH/AHI Supine 236.5 min 1.3 Off-Supine 135.0 min 1.3 Total 371.5 min 1.3 ECG DATA: The average heart rate was 81 bpm with a range of 57 bpm to 114 bpm. ICSD DIAGNOSIS: Primary Snoring [R06.83] Sleep Disorder, Unspecified [G47.9] IMPRESSION/RECOMMENDATIONS: 1. This study neither confirms nor refutes a diagnosis of obstructive sleep apnea as HSAT does not measure certain types of respiratory events that can only be measured on an in-laboratory polysomnogram 2. Recommend an in-laboratory polysomnogram if sleep apnea remains suspected. PATIENT: Name: MISS GAYLE THOMPSON : 1990 Age: 32 years Gender: F Primary rhythm: sinus. Height: 173.00 cm BSA: 2.26 m Weight: 106.00 kg BMI: 35.4 kg/m Heart rate 61 bpm Blood pressure 113/66 mmHg Color Doppler was utilized to interrogate the cardiac valves assessed and spectral Doppler was utilized to determine the flow velocities and pressure gradients reported in this exam. MEASUREMENTS: Value Indexed Normal Max aortic dimension 2.5 cm Ao < 3.8 Left atrium diameter 3.7 cm (2D) Left atrial volume 44 ml (biplane A-L) 19 ml/m Lonnie <= 34 LV ID (diastole) 4.5 cm (2D) 2.01 cm/m LV ID (systole) 2.9 cm (2D) 1.29 cm/m IVS, leaflet tips 0.8 cm (2D) Posterior wall thickness 0.7 cm (2D) Left ventricular mass 107 g (2D) 48 g/m LV stroke volume 62 ml (2D biplane) LVOT stroke volume 77 ml 35 ml/m Ejection Fraction 74 % (2D biplane) EF > 54 FINDINGS: LEFT VENTRICLE The left ventricle is normal in size. There is no left ventricular hypertrophy. Left ventricular systolic function is hyperdynamic. Normal left ventricular diastolic function. Mitral annular lateral E/e': 5.8. Mitral annular septal E/e': 7.7. Wall Motion: All scored segments are normal. RIGHT VENTRICLE The right ventricle is normal in size. Right ventricular systolic function is normal. RV systolic tissue Doppler velocity is 11.7 cm/s. Tricuspid annular displacement is 2.6 cm. Estimated right ventricular systolic pressure is 16 mmHg consistent with normal pulmonary artery pressures. Estimated right atrial pressure is 3 mmHg based on IVC assessment. LEFT ATRIUM The left atrial cavity is normal in size. RIGHT ATRIUM The right atrial cavity is normal in size. Inferior Vena Cava: The inferior vena cava appears normal. The vessel decreases greater than 50 percent with inspiration. MITRAL VALVE The mitral valve leaflets are structurally normal. Kenaitze mitral valve. There is no mitral valve regurgitation. The peak mitral E/A ratio is 1.51. The average mitral E/e' ratio is 6.8. TRICUSPID VALVE The tricuspid valve leaflets are structurally normal. Kenaitze tricuspid valve. There is trace tricuspid valve regurgitation. AORTIC VALVE The aortic valve cusps are structurally normal. There is no aortic valve regurgitation. Tricuspid aortic valve. The peak gradient is 8 mmHg (peak velocity = 144.0 cm/s). The mean gradient is 5 mmHg. The LVOT diameter is 2.0 cm. The aortic VTI is 33.1 cm. The mean velocity in the aortic valve is 99.4 cm/s. The dimensionless valve index is 0.76. AV area is 2.33 cm (1.03 cm /m ) by continuity, VTI. The LVOT stroke volume index is 35 ml/m . PULMONIC VALVE The pulmonic valve cusps are structurally normal. There is trace pulmonic valve regurgitation. AORTA The visualized aorta is normal in size. Measurements - Aortic valve annulus 2.0 cm. Sinus: 2.4 cm. Sinotubular junction 2.4 cm. Mid ascending aorta 2.5 cm. PULMONARY ARTERIES The pulmonary arteries are normal. Impression CONCLUSIONS: - Exam indication: Palpitations - The left ventricle is normal in size. There is no left ventricular hypertrophy. Left ventricular systolic function is hyperdynamic. EF = 74 5% (2D biplane) Normal left ventricular diastolic function. - The right ventricle is normal in size. Right ventricular systolic function is normal. Tricuspid annular displacement is 2.6 cm. - There are no significant valvular abnormalities. - The patient has not had a prior CC echocardiographic exam for comparison. The history is provided by the patient. No broker agricultural produce was used. PAST MEDICAL HISTORY Diagnosis Date Acute right ankle pain Allergies Asthma as a kid Generalized anxiety disorder Hammer toe Migraines Plantar fasciitis PAST SURGICAL HISTORY Procedure Laterality Date ANKLE SURGERY HX Right 07/27/2021 APPLICATION UNIPLANE EXTERNAL FIXATION SYSTEM Left 07/18/2021 CLTX FX W8 BRG ARTCLR PRTN DSTL TIB W/SKEL TRACJ Left 07/18/2021 CORRECTION HAMMERTOE Right 2013 EXTRACTION ERUPTED TOOTH 2016 wisdom teeth PROCEDURE pins in big toes 2010 SALPINGECTOMY COMPLETE/PARTIAL UNI/BI SPX 2020 Social History Tobacco Use Smoking status: Never Smokeless tobacco: Never Vaping Use Vaping Use: Never used Substance Use Topics Alcohol use: Yes Comment: occ. Drug use: No ALLERGIES No Known Allergies Family History Problem Relation Age of Onset other (Circulation problems) Mother other (High Blood Pressure) Mother other (fibromyalgia) Mother Hypertension Mother Cancer Mother cervical cancer Allergies Mother Bee venom, seasonal Depression Mother Anxiety disorder Mother Migraines Mother Thyroid Mother ADD/ADHD Father Migraines Sister Anxiety disorder Sister Depression Sister Asthma Sister Obesity Sister Thyroid Sister other (Gallbladder) Sister Asthma Brother Alzheimer's Disease Brother Diabetes Brother Cancer Maternal Grandmother Arthritis Maternal Grandmother COPD Maternal Grandmother other (ibs) Maternal Grandfather Obesity Paternal Grandmother other (colitis) Paternal Grandmother other (GERD) Daughter ADD/ADHD Son Allergies Son several other (gerd) Son Colon Cancer Other Current Outpatient Medications Medication Sig Dispense Refill meloxicam (MOBIC) 15 mg tablet Take 1 tablet by mouth once daily. 30 tablet 3 venlafaxine ER (EFFEXOR XR) 75 mg 24 hr capsule Take 1 capsule by mouth once daily. 30 capsule 2 atenolol (TENORMIN) 25 mg tablet Take 0.5 tablets by mouth once daily as needed. For HR > 100 30tablet 0 predniSONE (DELTASONE) 10 mg tablet Take 1 tablet by mouth once daily. Take 1 tablet by mouth once daily as needed. 25 tablet 0 albuterol HFA (PROVENTIL HFA, VENTOLIN HFA) 90 mcg/actuation inhaler Inhale 2 Puffs as instructed every 4 hours as needed. 1 Inhaler 0 Current Facility-Administered Medications Medication Dose Route Frequency Provider Last Rate Last Admin perflutren lipid microspheres 1.3 mL in NaCl (PF) 0.9% 10 mL injection (DEFINITY) INTRAVENOUS DIRECTED PRN Noelle Blanc, CLINICAL INFORMATICS SPEC.DIE DRAWING CHECKER sodium chloride 0.9 % (flush) 10 mL (BD POSIFLUSH) 10 mL INTRAVENOUS DIRECTED PRN Noelle Blanc, CLINICAL INFORMATICS SPEC.DIE DRAWING CHECKER Review of Systems Constitutional: Negative for appetite change, chills, diaphoresis, fatigue, fever and unexpected weight change. HENT: Positive for ear pain (left). Negative for congestion, facial swelling, rhinorrhea, sinus pressure, sinus pain, sneezing and sore throat. Eyes: Positive for photophobia (with headaches). Respiratory: Negative for cough, chest tightness and shortness of breath. Cardiovascular: Positive for chest pain and palpitations. Negative for leg swelling. Gastrointestinal: Negative for abdominal pain, diarrhea, nausea and vomiting. Endocrine: Negative. Genitourinary: Negative. Musculoskeletal: Positive for arthralgias (right ankle). Skin: Negative. Neurological: Positive for dizziness and headaches. Negative for weakness, light-headedness and numbness. Hematological: Negative. Psychiatric/Behavioral: Positive for dysphoric mood. Negative for decreased concentration. The patient is nervous/anxious. BP 124/70 Pulse 74 Temp 97.9 Resp 18 Ht 5' 8 (1.73m) Wt 233 lb (105.7kg) SpO2 98% BMI 35.44 kg/(m^2). Physical Exam Vitals and nursing note reviewed. Constitutional: Appearance: Normal appearance. She is overweight. She is not ill-appearing. HENT: Head: Normocephalic. Mouth/Throat: Mouth: Mucous membranes are moist. Pharynx: Oropharynx is clear. Eyes: General: Vision grossly intact. Conjunctiva/sclera: Conjunctivae normal. Pupils: Pupils are equal, round, and reactive to light. Neck: Thyroid: No thyromegaly. Cardiovascular: Rate and Rhythm: Normal rate and regular rhythm. Pulses: Normal pulses. Heart sounds: Normal heart sounds, S1 normal and S2 normal. Comments: [place] HR increase and then decrease again. Patient was sitting. Pulmonary: Effort: Pulmonary effort is normal. Breath sounds: Normal breath sounds and air entry. Musculoskeletal: Cervical back: Neck supple. Right lower leg: No edema. Left lower leg: No edema. Lymphadenopathy: Cervical: No cervical adenopathy. Skin: General: Skin is warm and dry. Neurological: Mental Status: She is alert and oriented to person, place, and time. Psychiatric: Mood and Affect: Affect normal. Mood is anxious. Speech: Speech normal. Behavior: Behavior is cooperative. Cognition and Memory: Cognition normal. No visits with results within 1 Day(s) from this visit. Latest known visit with results is: Results Only on 04/18/2023 Component Date Value Ref Range Status LV Ejection Fraction 04/18/2023 74 % Final Comment: (2D biplane) EF > 54 An LV Ejection Fraction of > 50% is normal ASSESSMENT/PLAN: 1. Palpitations - ICD9: 785.1, ICD10: R00.2 (primary diagnosis) - Unknown cause - Atenolol 12.5 mg once daily as needed for HR >100 - Holter monitor completed in March and predominant rhythm was NSR - Echo was WNL - Not seeing cardiology until August 2. Daytime sleepiness - ICD9: 780.54, ICD10: R40.0 - Scheduled for PSG tonight 3. Snoring - ICD9: 786.09, ICD10: R06.83 - Scheduled for PSG tonight 4. At risk for sleep apnea - ICD9: V49.89, ICD10: Z91.89 - Scheduled for PSG tonight New medication(s) prescribed today: None. Counseling completed in adopting health behaviors such as avoiding excessive alcohol use, avoid tobacco use, improve nutrition, and engage in physical activities. Copy of written care plan, clinical summary, treatment plan, new medications, goals, and self management requirements were given to patient. Noelle Blanc APRN.CNP [facility]23 Miscellaneous Notes* Telephone Encounter - Kalpana Dockery MA - 05/09/2023 1:35 PM EDT Patient is informed and she would like to get a in house sleep study Kalpana Dockery MA * Telephone Encounter - Kalpana Dockery MA - 05/09/2023 1:34 PM EDT ----- Message from Noelle Blanc APRN.CNP sent at 05/09/2023 1:02 PM EDT ----- Home sleep apnea test did not confirm DAVID but an in house sleep study was recommended since it is more specific for any respiratory events. Please let me know if she would be interested. documented in this encounterCl[facility]09-14-2023 Miscellaneous Notes* Telephone Encounter - Amarjit Storey DPM - 05/04/2023 8:48 AM EDT Done Thanks Amarjit Storey DPM, FACFAS * Telephone Encounter - Donna Moy - 05/03/2023 8:43 AM EDT Pharmacy MyChart message requesting the following refill. Requested Prescriptions Pending Prescriptions Disp Refills meloxicam (MOBIC) 15 mg tablet 30 tablet 3 Sig: Take 1 tablet by mouth once daily. Patients last known ORDER Date: 01/10/23 Patient Phone numbers: [phone] (home) Request is for script(s) to be escript to pharmacy. Donna Moy documented in this encounterCl[facility]09-11-2023 NoteHNO ID: [id number] Author: Kang Boyce Service: ? Author Type: ? Type: Progress Notes Filed: 05/01/2023 1:24 PM Note Text: Sleep Study Check-In Documentation Date: May 01, 2023 Name: Gayle Thompson Comments: HST was returned in working order without all sleep questionnaires Patient was not reached. A voicemail was left with patient to call back to complete questionnaires. [facility]23 NoteHNO ID: [id number] Author: Breezy Graves Service: ? Author Type: ? Type: Progress Notes Filed: 04/26/2023 7:11 PM Note Text: Nomad# [id number] +GPS , Date shipped out: 04/27/23 SENT FEDEX DELIVERY - FEDEX RETURN Tracking mailout: [id number] Tracking return: [id number] Miscellaneous Notes* Telephone Encounter - Lyle Bailey MA - 04/19/2023 5:05 PM EDT Patient notified. Lyle Bailey MA * Telephone Encounter - Lyle Bailey MA - 04/19/2023 5:04 PM EDT ----- Message from Noelle Blanc APRN.DIE DRAWING CHECKER sent at 04/19/2023 4:59 PM EDT ----- Echo was WNL. documented in this encounterCl[facility]08-29-2023 NoteHNO ID: [id number] Author: Arminda Hunter MD Service: ? Author Type: Physician Type: Progress Notes Filed: 04/18/2023 4:29 PM Note Text: April 18, 2023 Standing PSG Orders signed in the last 90 days None Future PSG Orders signed in the last 90 days Ordered Auth. provider HOME SLEEP APNEA TEST (HSAT) [[id number]] 03/31/23 Noelle Blanc, CLINICAL INFORMATICS SPEC.DIE DRAWING CHECKER Assoc. diagnoses: Palpitations [R00.2] Q: Indications: A: Obstructive sleep apnea Q: STOP-BANG conditions - Select All That Apply: A: BMI > 35 kg/m2 A2: TIREDNESS, fatigue or sleepiness during the day A3: NECK circumference (male >43 cm/17 in; female > 41 cm/16 in) Q: Current use of supplemental oxygen during sleep period?: A: No All Prior Sleep Studies (past 365 days) Some values may be hidden. Unless noted otherwise, only the newest values recorded on each date are displayed. Sleep Studies HOME SLEEP APNEA TEST (HSAT) Future Expected: Expires: 03/30/24 BMI Readings from Last 2 Encounters: 04/14/23 : 35.58 kg/m? 03/31/23 : 35.73 kg/m? PAST MEDICAL HISTORY Diagnosis Date Acute right ankle pain Allergies Asthma as a kid Generalized anxiety disorder Hammer toe Migraines Plantar fasciitis The medical record was reviewed to determine if the proposed sleep study conforms to the AASM Practice Parameters for the Indications for Polysomnography and Related Procedures, or if the sleep study is indicated for other reasons. Indications for study: DAVID suspected without comorbid medical or sleep disorders Sleep study to be performed: Home Sleep Apnea Test (HSAT) Special instructions: None-follow laboratory protocol [facility] Staff Note: I have read the above protocol, edited as needed, and agree to the plan. Arminda Hunter MD 4:28 PM, 04/18/2023[facility]08-29-[facility] History of Present illness Narrative* Arminda Hunter MD - 04/18/2023 12:58 PM EDT April 18, 2023 Standing PSG Orders signed in the last 90 days None Future PSG Orders signed in the last 90 days Ordered Auth. provider HOME SLEEP APNEA TEST (HSAT) [[id number]] 03/31/23 Noelle Blanc APRN.DIE DRAWING CHECKER Assoc. diagnoses: Palpitations [R00.2] Q: Indications: A: Obstructive sleep apnea Q: STOP-BANG conditions - Select All That Apply: A: BMI > 35 kg/m2 A2: TIREDNESS, fatigue or sleepiness during the day A3: NECK circumference (male >43 cm/17 in; female > 41 cm/16 in) Q: Current use of supplemental oxygen during sleep period?: A: No All Prior Sleep Studies (past 365 days) Some values may be hidden. Unless noted otherwise, only the newest values recorded on each date aredisplayed. Sleep Studies HOME SLEEP APNEA TEST (HSAT) Future Expected: Expires: 03/30/24 BMI Readings from Last 2 Encounters: 04/14/23 : 35.58 kg/m 03/31/23 : 35.73 kg/m PAST MEDICAL HISTORY Diagnosis Date Acute right ankle pain Allergies Asthma as a kid Generalized anxiety disorder Hammer toe Migraines Plantar fasciitis The medical record was reviewed to determine if the proposed sleep study conforms to the AASM Practice Parameters for the Indications for Polysomnography and Related Procedures, or if the sleep studyis indicated for other reasons. Indications for study: DAVID suspected without comorbid medical or sleep disorders Sleep study to be performed: Home Sleep Apnea Test (HSAT) Special instructions: None-follow laboratory protocol [facility] Staff Note: I have read the above protocol, edited as needed, and agree to the plan. Arminda Hunter MD 4:28 PM, 04/18/2023 * Gina Hopper - 04/05/2023 1:47 PM EDT April 05, 2023 An order has been received for Home Sleep Apnea Test (HSAT) from Noelle Garcia APRN.rianna GAR. [facility] Staff. Visit prep complete. Comments :No The sleep study is scheduled for 04/28. Insurance: Payor: [facility] MEDICAID / Plan: [facility] / Product Type: Medicaid / Payer/Plan Subscr Sex Relation Sub. Ins. ID Effective Group Num 1. [facility]* GAYLE THOMPSON 1990 Female Self [id number] 09/21/22 [place] [address] 2. [facility] [employer]* GAYLE THOMPSON 1990 Female Self [birth year] [address] Gina Hopper documented in this encounterCl[facility]08-29-2023 Miscellaneous Notes* Telephone Encounter - Masha Pascual MA - 04/18/2023 10:23 AM EDT patient electronically requesting refills as follows: Last seen 04/14/23 . Last refill 11/25/22 . Requested Prescriptions Pending Prescriptions Disp Refills venlafaxine ER (EFFEXOR XR) 75 mg 24 hr capsule 30 capsule 2 Sig: Take 1 capsule by mouth once daily. Please review and advise. Masha Pascual MA documented in this encounterCl[facility]08-16-2023 NoteHNO ID: [id number] Author: Gina Hopper Service: ? Author Type: ? Type: Progress Notes Filed: 04/18/2023 4:29 PM Note Text: April 05, 2023 An order has been received for Home Sleep Apnea Test (HSAT) from Noelle Garcia APRN.CNP, a B. [facility] Staff. Visit prep complete. Comments :No The sleep study is scheduled for 04/28. Insurance: Payor: [facility] MEDICA[facility] / [facility] / Product Type: Medicaid / Payer/Plan Subscr Sex Relation Sub. Ins. ID Effective Group Num 1. [facility] [place] GAYLE THOMPSON 1990 Female Self [id number] 09/[birth year] [place] [address] 2. [facility] [employer]* GAYLE THOMPSON 1990 Female Self [birth year] [address] [facility]08-16-[facility]23 History of Present illness Narrative* Masha Pascual MA - 04/05/2023 3:14 PM EDT Patient here to have orthostatic vitals checked. Patient did get a little dizzy when going from supine to sitting and then again from sitting to standing. Next office visit with Noelle Blanc CNP is04/14/23. Please advise. Masha Pascual MA documented in this encounterCl[facility]08-11-2023 History of Present illness Narrative* Noelle Blanc APRN.CNP - 03/31/2023 1:47 PM EDT Images from the original note were not included. [address] [address] Visit Date: 03/31/2023 Patient Name: Gayle Thompson Date of : 1990 Chief Complaint: ER Follow Up Gayle Thompson is a 32 year old female here today for a follow up to a recent emergency room (ER) visit. Emergency Room Location: [facility] Date of Emergency Room Visit: 03/28/23 Reason for Emergency Room Visit: see below Copied from ER visit: Patient presents with: Palpitations Patient presents the emergency room with concerns over palpitations and not feeling well. Patient states that the same symptoms approximately 2 weeks ago, she went to the emergency room at outside facility, and had a negative work-up. Patient was discharged home with her PCP, however she has not followed up yet. Patient states she was informed that she would likely benefit from a Holter monitor. 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 Patient denies any chest pain currently. History of PE, DVT, cardiac disease. No increased caffeine usage, weight loss supplements, herbal supplements, drugs, other. There is no new medications. EKG 14:42 Heart rate 68, normal NH interval, no ST segment changes, no STEMI, there is mild R to irregularityconsistent with a sinus arrhythmia, however there is no other ischemic findings Patient was placed on bedside telemetry, and during her entire stay in the emergency department, I do not appreciate any significant or noteworthy arrhythmias. Laboratory studies were obtained on patient, electrolytes, CBC, TSH, and high-sensitivity troponin x1 are negative. I was able to review anais morales's records, recently, from [facility], and at that time patient also had a negative work-up, despite having a positive dimer, follow-up CT chest for PE was negative. 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 With the above, in conjunction with [facility] Rod[facility]guez respiratory, and through patient's PCP, we were able to arrange for her to have a 72-hour Holter monitor placed upon hospital discharge. Patient's PCP is aware of the above, and will follow up with the results for this. Please note this report has been produced using speech recognition software and may contain errors related to that system including errors in grammar, punctuation, and spelling, as well as words and phrases that may be inappropriate. If there are any questions or concerns please feel free to contact the dictating physician for clarification. ED Visits & Hospitalizations - Last 180 days 03/28/23 Ankush Muñoz MD, LDED Palpitations, ED (DISCHARGE) HPI: Having frequent palpitations HR can jump up with no activity 40-151 range (on her Apple watch) Feeling more fatigued Had an episode of feeling like she was going to pass out, became sweaty, occurred on March 10 Gets dizzy and just doesn't feel right She currently has on her Holter monitor and is dropping it off today [facility]- CXR, CT, labs and everything was WNL + snores More fatigued BMI > 35 - HTN Vitals BP 120/74 Pulse 83 Temp 98 Resp 18 Ht 5' 8 (1.73m) Wt 235 lb (106.6kg) SpO2 98% BMI 35.74 kg/(m^2). PAST MEDICAL HISTORY Diagnosis Date Acute right ankle pain Allergies Asthma as a kid Generalized anxiety disorder Hammer toe Migraines Plantar fasciitis PAST SURGICAL HISTORY Procedure Laterality Date ANKLE SURGERY HX Right 07/27/2021 APPLICATION UNIPLANE EXTERNAL FIXATION SYSTEM Left 07/18/2021 CLTX FX W8 BRG ARTCLR PRTN DSTL TIB W/SKEL TRACJ Left 07/18/2021 CORRECTION HAMMERTOE Right 2010, 2013 EXTRACTION ERUPTED TOOTH 2016 wisdom teeth PROCEDURE pins in big toes 2010 SALPINGECTOMY COMPLETE/PARTIAL UNI/BI SPX 2020 FAMILY HISTORY Problem Relation Age of Onset other (Circulation problems) Mother other (High Blood Pressure) Mother other (fibromyalgia) Mother Hypertension Mother Cancer Mother cervical cancer Allergies Mother Bee venom, seasonal Depression Mother Anxiety disorder Mother Migraines Mother Thyroid Mother ADD/ADHD Father Migraines Sister Anxiety disorder Sister Depression Sister Asthma Sister Obesity Sister Thyroid Sister other (Gallbladder) Sister Asthma Brother Alzheimer's Disease Brother Diabetes Brother Cancer Maternal Grandmother Arthritis Maternal Grandmother COPD Maternal Grandmother other (ibs) Maternal Grandfather Obesity Paternal Grandmother other (colitis) Paternal Grandmother other (GERD) Daughter ADD/ADHD Son Allergies Son several other (gerd) Son Colon Cancer Other Social History Tobacco Use Smoking status: Never Smokeless tobacco: Never Vaping Use Vaping Use: Never used Substance Use Topics Alcohol use: Yes Comment: occ. Drug use: No Current Meds meloxicam (MOBIC) 15 mg tablet Take 1 tablet by mouth once daily. venlafaxine ER (EFFEXOR XR) 75 mg 24 hr capsule Take 1 capsule by mouth once daily. albuterol HFA (PROVENTIL HFA, VENTOLIN HFA) 90 mcg/actuation inhaler Inhale 2 Puffs as instructed every 4 hours as needed. predniSONE (DELTASONE) 10 mg tablet Take 1 tablet by mouth once daily. Take 1 tablet by mouth once daily as needed. I have confirmed and edited as necessary the chief complaint, medications, past medical, family andsocial histories obtained by others. Review of Systems Constitutional: Positive for fatigue. Negative for appetite change, chills, diaphoresis, fever and unexpected weight change. HENT: Negative. Eyes: Positive for photophobia (with headaches). Respiratory: Negative for cough, chest tightness, shortness of breath and wheezing. Cardiovascular: Positive for chest pain and palpitations. Negative for leg swelling. Gastrointestinal: Negative. Genitourinary: Negative. Musculoskeletal: Positive for arthralgias (right ankle). Skin: Negative. Neurological: Positive for dizziness, light-headedness and headaches. Hematological: Negative. Psychiatric/Behavioral: Negative. Physical Exam Vitals and nursing note reviewed. Constitutional: Appearance: Normal appearance. She is not ill-appearing. HENT: Head: Normocephalic. Mouth/Throat: Mouth: Mucous membranes are moist. Pharynx: Oropharynx is clear. Eyes: General: Vision grossly intact. Conjunctiva/sclera: Conjunctivae normal. Pupils: Pupils are equal, round, and reactive to light. Neck: Thyroid: No thyromegaly. Cardiovascular: Rate and Rhythm: Normal rate and regular rhythm. Pulses: Normal pulses. Heart sounds: Normal heart sounds, S1 normal and S2 normal. Pulmonary: Effort: Pulmonary effort is normal. Breath sounds: Normal breath sounds and air entry. Musculoskeletal: Cervical back: Neck supple. Right lower leg: No edema. Left lower leg: No edema. Lymphadenopathy: Cervical: No cervical adenopathy. Skin: General: Skin is warm and dry. Neurological: Mental Status: She is alert and oriented to person, place, and time. Psychiatric: Mood and Affect: Affect normal. Mood is anxious. Speech: Speech normal. Behavior: Behavior is cooperative. Cognition and Memory: Cognition normal. Data Reviewed: Most recent labs and imaging results. Most recent EKG Outside chart from [facility] reviewed. ASSESSMENT/PLAN: 1. Palpitations - ICD9: 785.1, ICD10: R00.2 (primary diagnosis) - She is currently wearing a Holter Monitor - I do not want to start a BB at this time since she is also having some bradycardic episodes - Increase fluids, decrease stress, adequate sleep, avoid caffeine - Recommend HSAT - HOME SLEEP APNEA TEST (HSAT) 2. Dizziness - ICD9: 780.4, ICD10: R42 - Intermittent with palpitations 3. Daytime sleepiness - ICD9: 780.54, ICD10: R40.0 - Recommend HSAT 4. Snoring - ICD9: 786.09, ICD10: R06.83 - Weight increasing - Behavioral intervention 5. Arthritis of ankle - ICD9: 716.97, ICD10: M19.079 - PREDNISONE 10 MG TABLET Return in about 2 weeks (around 04/14/2023). I have reviewed the patient's (ER) course including diagnostic testing performed during this ER visit, their discharge medications, and my assessment and plan with the patient. Discussed the above with the patient using shared decision making. The patient is in agreement with the diagnostic and treatment plans. Medications Discontinued During This Encounter Medication Reason acetaminophen (TYLENOL) 500 mg tablet aluminum chloride (DRYSOL) 20 % external solution loratadine/pseudoephedrine (CLARITIN-D 24 HOUR ORAL) Walker misc spironolactone (ALDACTONE) 25 mg tablet predniSONE (DELTASONE) 10 mg tablet Noelle Blanc APRN.CNP March 31, 2023 1:47 PM [facility] Miscellaneous Notes* Telephone Encounter - Noelle Blanc APRN.CNP - 03/28/2023 4:29 PM EDT Patient is in the ED for palpitations. RT Yoan Anne came over stating he and Dr. Muñoz were talking about a Holter monitor. I placed the order for [address] it on her today before she leaves the ED. [facility] History of Present illness Narrative* Amarjit Storey DPM - 01/26/2023 9:18 AM EDT DOS: 07/27/2021 Procedure: 1. ORIF tibial pilon fracture, right LE 2. Closed treatment distal fibula frature, right LE 3. Removal External fixator, right LE This 32 year old female presents for a post op visit. She states that some days she doesn't have much pain and other days she does. She states that she has been wearing the lace up brace. She says her pain is 1/10 and is more painful first thing in the morning. She states that the pain is at the distal Tibia. She states that her right hallux nail has been painful. She said that she has had a total temporary nail avulsion previously. She states that she is interested in a permanent nail avulsion. Denies any current nausea, vomiting, fever, chills, shortness of breath, chest pain or calf pain. Denies any other pedal complaints. PAST MEDICAL HISTORY Diagnosis Date Acute right ankle pain Allergies Asthma as a kid Generalized anxiety disorder Hammer toe Migraines Plantar fasciitis Current Outpatient Medications Medication Sig meloxicam (MOBIC) 15 mg tablet Take 1 tablet by mouth once daily. venlafaxine ER (EFFEXOR XR) 75 mg 24 hr capsule Take 1 capsule by mouth once daily. predniSONE (DELTASONE) 10 mg tablet Take 1 tablet by mouth once daily. Take 1 tablet by mouth once daily as needed. albuterol HFA (PROVENTIL HFA, VENTOLIN HFA) 90 mcg/actuation inhaler Inhale 2 Puffs as instructed every 4 hours as needed. spironolactone (ALDACTONE) 25 mg tablet Take 1 tablet by mouth once daily. (Patient not taking: Reported on 10/27/2022) acetaminophen (TYLENOL) 500 mg tablet Take 2 tablets by mouth every 8 hours as needed for pain. Walker misc 1 wheeled walker aluminum chloride (DRYSOL) 20 % external solution Apply to affected area daily at bedtime. loratadine/pseudoephedrine (CLARITIN-D 24 HOUR ORAL) Take by mouth once daily. No current facility-administered medications for this visit. ALLERGIES No Known Allergies Objective: Patient presents weightbearing as tolerated to right leg. Problem focus examination to the right lower extremity: Incision site is well coapted without evidence of dehiscence. No erythema. Mild edema surrounding surgical site. No drainage. No lymphadenopathy. No lymphangitis. No surrounding cellulitis. No signs of infection. She is able to flex her foot to 90 degrees but with pain. Ankle joint range of motion is decreased with pain noted right foot. Pain is worse with maximal dorsiflexion. Crepitus is noted.The point of maximal tenderness on palpation is to the Central aspect of the ankle joint. Pain noted to palpation of medial ankle gutter. pain noted to palpation of lateral ankle gutter. There is no pain noted at the subtalar joint or with range of motion of the subtalar joint. No pain noted with external rotation of the foot relative to the leg. There is some pain with palpation of the Right Hallux Toenail. No signs of ingrown nail. Patient has no pain to palpation of calf. The calf is soft, supple and nontender without evidence of DVT. Negative Charli's test. Satisfactory alignment is noted. Pedal pulses are palpable. Capillary refill time is less than three seconds to all digits. Sensations are intact to light touch. Radiographs: 10/27/22: right ankle radiographs (three views: AP/MO/lateral; weight-bearing) were performed and examined today. Personal radiographic evaluation: Status post ORIF pilon fracture. Alignment maintained. Fracture line within the distal fibula and tibia appears healed. Hardware in normal position without evidence of failure or loosening. No acute destructive changes. Joint space narrowing noted in the ankle consistent with arthritic changes. Last CT Ankle - Impression Only CT ANKLE WO IVCON RT Exam End: 07/18/2021 3:17 PM (Final result) Impression: IMPRESSION: Distal tibial and fibular fractures as discussed. Plumbing Designer: GER Transcribe Date/Time: Jul 18 2021 3:32P Dictated by : MEIR REES MD... 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 All questions were answered to patient's apparent satisfaction. - We discussed hardware removal if she continues to have pain. - We also discussed that she might need ankle arthrodesis in the future given severity of arthritisand symptoms. She is not interested because of the amount of time off that would be required for recovery. - Patient has been having pain to the right hallux toenail and it doesn't appear to be ingrown. Shestates that she would like to have a nail avulsion. We discussed that we could perform Medial and Lateral Border Right Hallux Partial Permanent Nail Avulsion. - follow up PRN or when ready to schedule procedure Sivakumar Ramirez DPM PGY- 2 I personally saw and evaluated the patient. I reviewed the resident's note. I agree with the resident's assessment and plan unless otherwise noted. Amarjit Storey DPM, CORINNA * Shelley Varela LPN - 01/26/2023 9:02 AM EDT REVIEW OF SYSTEMS: GENERAL: Well developed, well nourished. No acute distress PAIN: Pain 2/10 CARDIOVASCULAR: Negative for chest pain, leg swelling and palpations. MSK: Positive for joint swelling SKIN: Negative for lesions, rash, itching, metal sensitivity NEURO: Negative for seizure, trauma, numbness/tingling of extremities. ENDOCRINE: Negative for diabetic associated symptoms HEMATOLOGY: Negative for excessive bleeding, clots, bleeding disorders. [facility] Miscellaneous Notes* Telephone Encounter - Amarjit Storey DPM - 12/18/2022 3:15 PM EDT Done Thanks Amarjit Storey DPM, CORINNA [facility] History of Present illness Narrative* Amarjit Storey DPM - 10/27/2022 9:25 AM EST DOS: 07/27/2021 Procedure: 1. ORIF tibial pilon fracture, right LE 2. Closed treatment distal fibula frature, right LE 3. Removal External fixator, right LE This 32 year old female presents for a post op visit. Had previous cortisone injection. Notes 2-3 weeks of relief. She now currently has the same pain/stiffness to the ankle joint. Worse when workingon her feet. Patient states they are doing well. Has been weightbearing as tolerated to the right lower extremity. Admits to wearing compression socks daily to help with mild edema. Also wears lace up ankle brace with supportive shoes daily. Denies any current nausea, vomiting, fever, chills, shortness of breath, chest pain or calf pain. Denies any other pedal complaints. PAST MEDICAL HISTORY Diagnosis Date Acute right ankle pain Allergies Asthma as a kid Generalized anxiety disorder Hammer toe Migraines Plantar fasciitis Current Outpatient Medications Medication Sig venlafaxine ER (EFFEXOR XR) 37.5 mg 24 hr capsule Take 1 capsule by mouth once daily. meloxicam (MOBIC) 15 mg tablet Take 1 tablet by mouth once daily. predniSONE (DELTASONE) 10 mg tablet Take 1 tablet by mouth once daily. Take 1 tablet by mouth once daily as needed. acetaminophen (TYLENOL) 500 mg tablet Take 2 tablets by mouth every 8 hours as needed for pain. loratadine/pseudoephedrine (CLARITIN-D 24 HOUR ORAL) Take by mouth once daily. albuterol HFA (PROVENTIL HFA, VENTOLIN HFA) 90 mcg/actuation inhaler Inhale 2 Puffs as instructed every 4 hours as needed. spironolactone (ALDACTONE) 25 mg tablet Take 1 tablet by mouth once daily. (Patient not taking: Reported on 10/27/2022) [place] [facility] [place] walk[place] aluminum chloride (DRYSOL) 20 % external solution Apply to affected area daily at bedtime. No current facility-administered medications for this visit. ALLERGIES No Known Allergies Objective: Patient presents weightbearing as tolerated to right leg. Problem focus examination to the right lower extremity: Incision site is well coapted without evidence of dehiscence. Mild erythema and edema surrounding surgical site. No drainage. No lymphadenopathy. No lymphangitis. No surrounding cellulitis. No signs of infection. She is able to flex her foot to 90 degrees but with pain. Ankle joint range of motion is decreased with pain noted right foot. Pain is worse with maximal dorsiflexion. Crepitus is noted.The point of maximal tenderness on palpation is to the Central aspect of the ankle joint. pain noted to palpation of medial ankle gutter. pain noted to palpation of lateral ankle gutter. There is no pain noted at the subtalar joint or with range of motion of the subtalar joint. No pain noted with external rotation of the foot relative to the leg. Patient has no pain to palpation of calf. The calf is soft, supple and nontender without evidence of DVT. Negative Charli's test. Satisfactory alignment is noted. Pedal pulses are palpable. Capillary refill time is less than three seconds to all digits. Sensations are intact to light touch. Radiographs: 10/27/22: right ankle radiographs (three views: AP/MO/lateral; weight-bearing) were performed and examined today. Personal radiographic evaluation: Status post ORIF pilon fracture. Alignment maintained. Fracture line within the distal fibula and tibia appears healed. Hardware in normal position without evidence of failure or loosening. No acute destructive changes. Joint space narrowing noted in the ankle consistent with arthritic changes. Last CT Ankle - Impression Only CT ANKLE WO IVCON RT Exam End: 07/18/2021 3:17 PM (Final result) Impression: IMPRESSION: Distal tibial and fibular fractures as discussed. Plumbing Designer: GER Transcribe Date/Time: Jul 18 2021 3:32P Dictated by : MEIR REES MD... 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 All questions were answered to patient's apparent satisfaction. - XR obtained and reviewed today - Continue Mobic PRN and lace up ankle brace in supportive shogear. - May consider custom bracing in the future - May consider HWR in the future - Recommend voltaren gel or CBD cream - discussed possible injection at next visit. - Advised patient to avoid significant axial load exercises to the ankle joint - Discussed she may need ankle arthrodesis in the future given severity of arthritis and symptoms. Follow up 3 months Berny Martell DPM PGY3 I personally saw and evaluated the patient. I reviewed the resident's note. I agree with the resident's assessment and plan unless otherwise noted. Amarjit Storey DPM, FACFAS * Mary Dean MA - 10/27/2022 8:42 AM EST REVIEW OF SYSTEMS: GENERAL: Well developed, well nourished. No acute distress PAIN: Pain 2/10 CARDIOVASCULAR: Negative for chest pain, leg swelling and palpations. MSK: Negative for joint swelling SKIN: Negative for lesions, rash, itching, metal sensitivity NEURO: Negative for seizure, trauma, numbness/tingling of extremities. ENDOCRINE: Negative for diabetic associated symptoms HEMATOLOGY: Negative for excessive bleeding, clots, bleeding disorders. Mary Dean MA documented in this [facility]01-30-2023 Miscellaneous Notes* Telephone Encounter - Amarjit Storey DPM - 09/19/2022 3:44 PM EST Done Thanks Amarjit Storey DPM, FACFAS documented in this [facility]01-30-2023 Miscellaneous Notes* Telephone Encounter - Kalpana Dockery MA - 09/19/2022 3:44 PM EST Pharmacy requesting refills as follows: Last Office Visit 12/16/21. Last Refill 11/25/21. Requested Prescriptions Pending Prescriptions Disp Refills venlafaxine ER (EFFEXOR XR) 37.5 mg 24 hr capsule 30 capsule 1 Sig: Take 1 capsule by mouth once daily. Please review and advise. Kalpana Dockery MA documented in this [facility]12-08-2022 Instructions* Patient Instructions* Heidy Chapman DPM - 07/28/2022 9:48 AM EST Voltaren gel or CBD cream/oil - [facility] Mobic Prednisone Ice, rest Compression stockings Lace up ankle brace documented in this [facility]12-08-2022 History of Present illness Narrative* Amarjit Storey DPM - 07/28/2022 9:15 AM EST DOS: 07/27/2021 Procedure: 1. ORIF tibial pilon fracture, right LE 2. Closed treatment distal fibula frature, right LE 3. Removal External fixator, right LE This 31 year old female presents for a post op visit. At last visit she received a cortisone injection. Notes 2-3 weeks of relief. She now currently has the same pain/stiffness to the ankle joint. Worse when working on her feet. Patient states they are doing well. Has been weightbearing as tolerated to the right lower extremity. Admits to wearing compression socks daily to help with mild edema. States she has some stiffness when dorsiflexing and with going up and down stairs RLE. Also wears lace up ankle brace with supportive shoes daily. Denies any current nausea, vomiting, fever, chills, shortness of breath, chest pain or calf pain. Denies any other pedal complaints. PAST MEDICAL HISTORY Diagnosis Date Acute right ankle pain Allergies Asthma as a kid Generalized anxiety disorder Hammer toe Migraines Plantar fasciitis Current Outpatient Medications Medication Sig predniSONE (DELTASONE) 10 mg tablet Take 1 tablet by mouth once daily. Take 1 tablet by mouth once daily as needed. meloxicam (MOBIC) 15 mg tablet Take 1 tablet by mouth once daily. venlafaxine ER (EFFEXOR XR) 37.5 mg 24 hr capsule Take 1 capsule by mouth once daily. spironolactone (ALDACTONE) 25 mg tablet Take 1 tablet by mouth once daily. acetaminophen (TYLENOL) 500 mg tablet Take 2 tablets by mouth every 8 hours as needed for pain. loratadine/pseudoephedrine (CLARITIN-D 24 HOUR ORAL) Take by mouth once daily. albuterol HFA (PROVENTIL HFA, VENTOLIN HFA) 90 mcg/actuation inhaler Inhale 2 Puffs as instructed every 4 hours as needed. Walker [facility] walker aluminum chloride (DRYSOL) 20 % external solution Apply to affected area daily at bedtime. No current facility-administered medications for this visit. ALLERGIES No Known Allergies Objective: Patient presents weightbearing as tolerated to right leg. Problem focus examination to the right lower extremity: Incision site is well coapted without evidence of dehiscence. Mild erythema and edema surrounding surgical site. No drainage. No lymphadenopathy. No lymphangitis. No surrounding cellulitis. No signs of infection. She is able to flex her foot to 90 degrees but with pain. Ankle joint range of motion is decreased with pain noted right foot. Pain is worse with maximal dorsiflexion. Crepitus is noted.The point of maximal tenderness on palpation is to the Central aspect of the ankle joint. pain noted to palpation of medial ankle gutter. pain noted to palpation of lateral ankle gutter. There is no pain noted at the subtalar joint or with range of motion of the subtalar joint. No pain noted with external rotation of the foot relative to the leg. Patient has no pain to palpation of calf. The calf is soft, supple and nontender without evidence of DVT. Negative Charli's test. Satisfactory alignment is noted. Pedal pulses are palpable. Capillary refill time is less than three seconds to all digits. Sensations are intact to light touch. Radiographs: 07/28/22: right ankle radiographs (three views: AP/MO/lateral; weight-bearing) were performed and examined today. Personal radiographic evaluation: Status post ORIF pilon fracture. Alignment maintained. Fracture line within the distal fibula and tibia appears healed. Hardware in normal position without evidence of failure or loosening. No acute destructive changes. Joint space narrowing noted in the ankle consistent with arthritic changes. Last CT Ankle - Impression Only CT ANKLE WO IVCON RT Exam End: 07/18/2021 3:17 PM (Final result) Impression: IMPRESSION: Distal tibial and fibular fractures as discussed. Plumbing Designer: GER Transcribe Date/Time: Jul 18 2021 3:32P Dictated by : MEIR REES MD... 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 All questions were answered to patient's apparent satisfaction. - XR obtained and reviewed today - Continue Mobic PRN and lace up ankle brace in supportive shogear. - May consider custom bracing in the future - May consider HWR in the future - Recommend voltaren gel or CBD cream - Rx prednisone 10 mg to take as needed if significant pain - Advised patient to avoid significant axial load exercises to the ankle joint - Discussed she may need ankle arthrodesis in the future given severity of arthritis and symptoms. Follow up 3 months Heidy Chapman DPM PGY3 I personally saw and evaluated the patient. I reviewed the resident's note. I agree with the resident's assessment and plan unless otherwise noted. Amarjit Storey DPM, FACFAS * Mary Dean MA - 07/28/2022 9:08 AM EST REVIEW OF SYSTEMS: GENERAL: Well developed, well nourished. No acute distress PAIN: Negative for pain, history of chronic pain or current treatment for chronic pain conditions and Pain 08/30 CARDIOVASCULAR: Negative for chest pain, leg swelling and palpations. MSK: Negative for joint swelling SKIN: Negative for lesions, rash, itching, metal sensitivity NEURO: Negative for seizure, trauma, numbness/tingling of extremities. ENDOCRINE: Negative for diabetic associated symptoms HEMATOLOGY: Negative for excessive bleeding, clots, bleeding disorders. Mary Dean MA [facility] History of Present illness Narrative* Josue Tatum LPN - 06/29/2022 11:10 AM EST Injection prepared per Dr Storey's order 2cc bupivacaine 0.5cc kenalog 0.5cc depo and handed to him. DANIA Servin * Gill Cardozo - 06/29/2022 11:01 AM EST REVIEW OF SYSTEMS: GENERAL: Well developed, well nourished. No acute distress PAIN: right ankle pain CARDIOVASCULAR: Negative for chest pain, leg swelling and palpations. MSK: Negative for joint swelling SKIN: Negative for lesions, rash, itching, metal sensitivity NEURO: Negative for seizure, trauma, numbness/tingling of extremities. ENDOCRINE: Negative for diabetic associated symptoms HEMATOLOGY: Negative for excessive bleeding, clots, bleeding disorders. * Amarjit Storey DPM - 06/29/2022 10:59 AM ESTAssociated Order(s): Medium Joint Arthro/Inj: R ankle joint Post-Procedure Diagnose(s): Arthritis of ankle; History of ankle surgery DOS: 07/27/2021 POD: 8 months 23 days Procedure: 1. ORIF tibial pilon fracture, right LE 2. Closed treatment distal fibula frature, right LE 3. Removal External fixator, right LE This 31 year old female presents for a post op visit. Patient states they are doing well. Has been weightbearing as tolerated to the right lower extremity. Admits to wearing compression socks daily to help with edema. States she has some stiffness when dorsiflexing and with going up and down stairsRLE. Denies any current nausea, vomiting, fever, chills, shortness of breath, chest pain or calf pain. Denies any other pedal complaints. PAST MEDICAL HISTORY Diagnosis Date Acute right ankle pain Allergies Asthma as a kid Generalized anxiety disorder Hammer toe Migraines Plantar fasciitis Current Outpatient Medications Medication Sig predniSONE (DELTASONE) 10 mg tablet Take 1 tablet by mouth once daily. Take 1 tablet by mouth once daily as needed. meloxicam (MOBIC) 15 mg tablet Take 1 tablet by mouth once daily. venlafaxine ER (EFFEXOR XR) 37.5 mg 24 hr capsule Take 1 capsule by mouth once daily. spironolactone (ALDACTONE) 25 mg tablet Take 1 tablet by mouth once daily. Walker misc 1 wheeled walker loratadine/pseudoephedrine (CLARITIN-D 24 HOUR ORAL) Take by mouth once daily. acetaminophen (TYLENOL) 500 mg tablet Take 2 tablets by mouth every 8 hours as needed for pain. (Patient not taking: Reported on 12/16/2021 ) aluminum chloride (DRYSOL) 20 % external solution Apply to affected area daily at bedtime. albuterol HFA (PROVENTIL HFA, VENTOLIN HFA) 90 mcg/actuation inhaler Inhale 2 Puffs as instructed every 4 hours as needed. (Patient not taking: Reported on 12/16/2021 ) No current facility-administered medications for this visit. ALLERGIES No Known Allergies Objective: Patient presents weightbearing as tolerated to right leg. Problem focus examination to the right lower extremity: Incision site is well coapted without evidence of dehiscence. Mild erythema and edema surrounding surgical site. No drainage. No lymphadenopathy. No lymphangitis. No surrounding cellulitis. No signs of infection. She is able to flex her foot to 90 degrees but with pain. Ankle joint range of motion is decreased with pain noted right foot. Pain is worse with maximal dorsiflexion. Crepitus is noted.The point of maximal tenderness on palpation is to the Central aspect of the ankle joint. pain noted to palpation of medial ankle gutter. pain noted to palpation of lateral ankle gutter. There is no pain noted at the subtalar joint or with range of motion of the subtalar joint. No pain noted with external rotation of the foot relative to the leg. Patient has no pain to palpation of calf. The calf is soft, supple and nontender without evidence of DVT. Negative Charli's test. Satisfactory alignment is noted. Pedal pulses are palpable. Capillary refill time is less than three seconds to all digits. Sensations are intact to light touch. Radiographs: 04/24/22: right ankle radiographs (three views: AP/MO/lateral; weight-bearing) were performed and examined today. Personal radiographic evaluation: Status post ORIF pilon fracture. Alignment maintained. Fracture line within the distal fibula and tibia appears healed. Hardware in normal position without evidence of failure or loosening. No acute destructive changes. Joint space narrowing noted in the ankle consistent with arthritic changes. Last CT Ankle - Impression Only CT ANKLE WO IVCON RT Exam End: 07/18/2021 3:17 PM (Final result) Impression: IMPRESSION: Distal tibial and fibular fractures as discussed. Plumbing Designer: GER Transcribe Date/Time: Jul 18 2021 3:32P Dictated by : MEIR REES MD... 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 All questions were answered to patient's apparent satisfaction. - XR and CT reviewed again. - Continue Mobic PRN and lace up ankle brace in supportive shogear. - Discussed r/b/a of injection. See procedure note below. - Discussed she may need ankle arthrodesis in the future given severity of arthritis and symptoms. Follow up 3 months Medium Joint Arthro/Inj: R ankle joint Informed Consent Consent Obtained: Verbal [place] Protocol SIGN IN TIME OUT 07/03/2022 11:50 AM The procedure site was prepped in the usual sterile fashion. Site: R ankle joint Medications: 20 mg triamcinolone acetonide 40 mg/mL; 20 mg methylPREDNISolone acetate 40 mg/mL Anesthetics: 2 mL bupivacaine (PF) 0.25 % (2.5 mg/mL) Outcome: tolerated well, no immediate complications Post-injection instructions were reviewed with the patient and the patient voiced understanding of these instructions. Cintia Perales DPM PGY-3 I personally saw and evaluated the patient. I reviewed the resident's note. I agree with the resident's assessment and plan unless otherwise noted. Amarjit Storey DPM, FACFAS . documented [facility]22 Miscellaneous Notes* Telephone Encounter - Amarjit Storey DPM - 06/08/2022 9:20 AM EDT Done Thanks Amarjit Storey DPM, FACFAS documented in this encounterCl[facility]09-25-2022 Miscellaneous Notes* Telephone Encounter - Amarjit Storey DPM - 05/15/2022 7:09 PM EDT Done Thanks Amarjit Storey DPM, CORINNA documented in this encounterCl[facility]09-19-2022 History of Present illness Narrative* Kalpana Dockery MA - 05/09/2022 10:50 AM EDT ED Follow Up: Left message for patient to call back if she needs anything Patient discharged from [facility] ED on 05/01/22. 1. How are you feeling since your ED visit? N/A Have your symptoms improved or resolved? Not applicable 2. Were you prescribed any medications while in the ED or advised to stop any medication? Not applicable - If yes, were you able to fill your prescriptions? Not applicable -if stopped medication, what was the medication? N/A 3. Were you advised to schedule a follow up appointment with your provider? Not applicable - If no, Do you feel like you need an appointment scheduled? Not applicable - If yes, Do you need this scheduled now or has this already been scheduled? Not applicable 4. Were you able to contact the office or water filtration technician provider prior to your ED visit? Not applicable 5. Is there anything else I can do for you today? Not applicable Kalpana Dockery MA documented in this encounterCl[facility]08-30-2022 Instructions* Patient Instructions* Mary Dean MA - 04/19/2022 10:39 AM EDT Bandage removed and new dressing applied. - Patient to continue weightbearing as tolerated to the operative extremity. - Advised to take Meloxicam for ankle arthritis and to wear her lace up ankle brace. - New Rx Prednisone 10 mg dispensed today to use as needed. - New Rx Meloxicam dispensed. - Discussed giving a cortisone injection at next visit if no improvement. documented in this encounterCl[facility]08-30-2022 History of Present illness Narrative* Amarjit Storey DPM - 04/19/2022 10:30 AM EDT DOS: 07/27/2021 POD: 8 months 23 days Procedure: 1. ORIF tibial pilon fracture, right LE 2. Closed treatment distal fibula frature, right LE 3. Removal External fixator, right LE This 31 year old female presents for a post op visit. Patient states they are doing well. Has been weightbearing as tolerated to the right lower extremity. Admits to wearing compression socks daily to help with edema. States she has some stiffness pulling up.Denies any current nausea, vomiting, fever, chills, shortness of breath, chest pain or calf pain. Denies any other pedal complaints. PAST MEDICAL HISTORY Diagnosis Date Acute right ankle pain Allergies Asthma as a kid Generalized anxiety disorder Hammer toe Migraines Plantar fasciitis Current Outpatient Medications Medication Sig venlafaxine ER (EFFEXOR XR) 37.5 mg 24 hr capsule Take 1 capsule by mouth once daily. spironolactone (ALDACTONE) 25 mg tablet Take 1 tablet by mouth once daily. acetaminophen (TYLENOL) 500 mg tablet Take 2 tablets by mouth every 8 hours as needed for pain. (Patient not taking: Reported on 12/16/2021 ) [place] [facility] walk[place] aluminum chloride (DRYSOL) 20 % external solution Apply to affected area daily at bedtime. loratadine/pseudoephedrine (CLARITIN-D 24 HOUR ORAL) Take by mouth once daily. albuterol HFA (PROVENTIL HFA, VENTOLIN HFA) 90 mcg/actuation inhaler Inhale 2 Puffs as instructed every 4 hours as needed. (Patient not taking: Reported on 12/16/2021 ) No current facility-administered medications for this visit. ALLERGIES No Known Allergies Objective: Patient presents weightbearing as tolerated to right leg. Problem focus examination to the right lower extremity: Incision site is well coapted without evidence of dehiscence. Mild erythema and edema surrounding surgical site. No drainage. No lymphadenopathy. No lymphangitis. No surrounding cellulitis. No signs of infection. She is able to flex her foot to 90 degrees. Patient has no pain to palpation of calf. The calf is soft, supple and nontender without evidence of DVT. Negative Charli's test. Satisfactory alignment is noted. Pedal pulses are palpable. Capillary refill time is less than three seconds to all digits. Sensations are intact to light touch. Radiographs: 04/24/22: right ankle radiographs (three views: AP/MO/lateral; weight-bearing) were performed and examined today. Personal radiographic evaluation: Status post ORIF pilon fracture. Alignment maintained. Fracture line within the distal fibula and tibia appears healed. Hardware in normal position without evidence of failure or loosening. No acute destructive changes. Joint space narrowing noted in the ankle consistent with arthritic changes. Assessment: Satisfactory post-operative progress, right ankle arthritis Plan: The patient was educated on clinical examination findings, postoperative prognosis and protocol. All questions were answered to patient's apparent satisfaction. - Bandage removed and new dressing applied. - Patient to continue weightbearing as tolerated to the operative extremity. - Xray's reviewed with patient. - Advised to take Meloxicam for ankle arthritis and to wear her lace up ankle brace. - New Rx Prednisone 10 mg dispensed today to use as needed. - New Rx Meloxicam dispensed. - Discussed giving a cortisone injection at next visit if no improvement. Follow up 3 months Scribe: I, Mary Dean MA , am working as a scribe for and in the presence of Amarjit Storey DPM at 10:38 AM on April 19, 2022. Clinician Attestation Statement: The information in this document, created by the paramedical aide for me, accurately reflects the services I personally performed and the decisions made by me. I have reviewed and approved this document for accuracy. Amarjit Storey DPM, FACFAS . documented in this encounterCl[facility]08-04-2022 Miscellaneous Notes* Telephone Encounter - Lizzeth Weiss [place] Ppg - 03/24/2022 10:26 AM EDT 03/24/22 and 03/22/22 lm need to r/s due to dr karissa Weiss Chemical Detection Expert Ppg documented in this encounterCl[facility]06-28-2022 Miscellaneous Notes* Telephone Encounter - Kaley Laboy - 02/15/2022 10:06 AM EDT No Show Documentation Gayle Thompson no showed for an appointment on 02/15/2022 with Noelle Blanc APRN.CNP at 9:20 am. She was scheduled for a 4 week follow up for anxiety. I called and left a message for the patient regarding her missed appointment. Told her to call the office is she would like to reschedule. Resources discussed/offered to patient: na No show determined to be fault of patient: Yes This is the patients first no show in the last 12 months. Patient was rescheduled for na. Letter mailed : Yes Is this the Third or Fourth No Show? No Kaley Laboy February 15, 2022 10:06 AM documented in this encounterCl[facility]04-28-2022 History of Present illness Narrative* Noelle Blanc APRN.CNP - 12/16/2021 10:33 AM EDT Images from the [place] [id number] Date of Evaluation: 12/16/2021 Patient Name: Gayle Thompson : 1990 Chief Complaint: Patient presents with: Anxiety: patient states it is a little better Subjective Ms. Thompson is a 31 year old female who presents today for follow up for anxiety. She was started on Effexor 37.5 mg daily in the beginning of November. She is doing well with it and denies any side effects. Was previously on Lexapro but didn't feel it was helping. She recently went through a traumatic loss of a colleague and was having a lot of anxiety and difficulty with it so she was given a short course of Xanax and states it helped a lot. She was only taking it about once daily as needed. [place] state her sleep hasn't been the best some nights. Currently in PT 2-3 times a week for her ankle/foot. May get to return to work soon. Feeling nervous, anxious, or on edge 1 Several days Not being able to stop or control worrying 1 Several days Worrying too much about different things 1 Several days Trouble relaxing 2 Over half the days Being so restless that it's hard to sit still 2 Over half the days Being easily annoyed or irritable 2 Over half the days Feeling afraid as if something awful might happen 2 Over half the days CORY-7 Anxiety Score 11 If you checked off any problems, how difficult have these problems made it for you to do your work,take care of things at home, or get along with other people? Somewhat difficult The history is provided by the patient. No broker agricultural produce was used. PAST MEDICAL HISTORY Diagnosis Date Acute right ankle pain Allergies Asthma as a kid Generalized anxiety disorder Hammer toe Migraines Plantar fasciitis PAST SURGICAL HISTORY Procedure Laterality Date ANKLE SURGERY HX Right 07/27/2021 APPLICATION UNIPLANE EXTERNAL FIXATION SYSTEM Left 07/18/2021 CLTX FX W8 BRG ARTCLR PRTN DSTL TIB W/SKEL TRACJ Left 07/18/2021 CORRECTION HAMMERTOE Right 2013 EXTRACTION ERUPTED TOOTH 2016 wisdom teeth PROCEDURE pins in big toes 2010 SALPINGECTOMY COMPLETE/PARTIAL UNI/BI SPX 2020 FAMILY HISTORY Problem Relation Age of Onset other (Circulation problems) Mother other (High Blood Pressure) Mother other (fibromyalgia) Mother Hypertension Mother Cancer Mother cervical cancer Allergies Mother Bee venom, seasonal Depression Mother Anxiety disorder Mother Migraines Mother Thyroid Mother ADD/ADHD Father Migraines Sister Anxiety disorder Sister Depression Sister Asthma Sister Obesity Sister Thyroid Sister other (Gallbladder) Sister Asthma Brother Alzheimer's Disease Brother Diabetes Brother Cancer Maternal Grandmother Arthritis Maternal Grandmother COPD Maternal Grandmother other (ibs) Maternal Grandfather Obesity Paternal Grandmother other (colitis) Paternal Grandmother other (GERD) Daughter ADD/ADHD Son Allergies Son several other (gerd) Son Colon Cancer Other Social History Tobacco Use Smoking status: Never Smoker Smokeless tobacco: Never Used Substance Use Topics Alcohol use: Yes Comment: occ. Drug use: No Current Meds venlafaxine ER (EFFEXOR XR) 37.5 mg 24 hr capsule Take 1 capsule by mouth once daily. spironolactone (ALDACTONE) 25 mg tablet Take 1 tablet by mouth once daily. Walker misc 1 wheeled walker loratadine/pseudoephedrine (CLARITIN-D 24 HOUR ORAL) Take by mouth once daily. ALPRAZolam (XANAX) 0.5 mg tablet Take 1 tablet by mouth twice daily as needed for up to 7 days. acetaminophen (TYLENOL) 500 mg tablet Take 2 tablets by mouth every 8 hours as needed for pain. aluminum chloride (DRYSOL) 20 % external solution Apply to affected area daily at bedtime. albuterol HFA (PROVENTIL HFA, VENTOLIN HFA) 90 mcg/actuation inhaler Inhale 2 Puffs as instructed every 4 hours as needed. Review of Systems Constitutional: Negative for appetite change, chills, diaphoresis, fatigue and fever. Respiratory: Negative. Cardiovascular: Negative. Gastrointestinal: Negative. Skin: Negative. Psychiatric/Behavioral: Positive for sleep disturbance. Negative for dysphoric mood. The patient isnervous/anxious. I have confirmed and edited as necessary the chief complaint, medications, past medical, family andsocial histories. Objective BP 120/70 (BP Site: Left Arm, BP Position: Sitting, BP Cuff Size: Regular Adult) Pulse 75 Temp 36.8 C (98.3 F) (Oral) Ht 172.2 cm (5' 7.8) Wt 112.8 kg (248 lb 9.6 oz) LMP 07/13/2021 PaE758% BMI 38.03 kg/m Body mass index is 38.03 kg/m . Physical Exam Vitals and nursing note reviewed. Constitutional: Appearance: Normal appearance. Cardiovascular: Rate and Rhythm: Regular rhythm. Heart sounds: Normal heart sounds. Pulmonary: Breath sounds: Normal breath sounds. Skin: General: Skin is warm and dry. Neurological: Mental Status: She is alert and oriented to person, place, and time. Psychiatric: Mood and Affect: Affect is tearful. Speech: Speech normal. Behavior: Behavior normal. Cognition and Memory: Cognition normal. Data Reviewed: No new labs ASSESSMENT/PLAN: 1. Anxiety - ICD9: 300.00, ICD10: F41.9 (primary diagnosis) - Doing well on current dose of Effexor, has only been on it for about 3 weeks. Would like for her to return in 4 weeks. 2. Bereavement reaction - ICD9: 309.0, V62.89, ICD10: F43.20, Z63.4 - Discussed with the patient about giving her another refill at this time. Advised her that this isnot something I want her to take intermediate designer and she states understanding. 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 She may be returning to work soon and is looking forward to that. PDMP website checked and validated. All prescriptions have been APPROPRIATELY filled. No suspiciousactivity was identified. 12/16/2021 by Noelle Blanc APRN.CNP - ALPRAZOLAM 0.5 MG TABLET Return in about 4 weeks (around 01/13/2022) for Anxiety. Discussed the above with the patient using shared decision making. The patient is in agreement with the diagnostic and treatment plans. Noelle Blanc APRN.CNP documented in this encounterCl[facility]04-07-2022 Instructions* Patient Instructions* Noelle Blanc APRN.CNP - 11/25/2021 11:51 AM EDT Venlafaxine: Patient drug information Access [employer] for additional drug information, tools, and databases. Copyright [employer] All rights reserved. Contributor Disclosures (For additional information see Venlafaxine: Drug information and see Venlafaxine: Pediatric drug information) You must carefully read the Consumer Information Use and Disclaimer below in order to understand and correctly use this information. Brand Names: [place] Effexor XR Brand Names: [place] ACT Venlafaxine XR; APO-Venlafaxine XR; Auro-Venlafaxine XR; DOM-Venlafaxine XR; Effexor XR; GD-Venlafaxine XR [DSC]; M-Venlafaxine XR; MYLAN-Venlafaxine XR [DSC]; PMS-Venlafaxine XR; AUGUSTINE-Venlafaxine XR [DSC]; SANDOZ Venlafaxine XR; TARO-Venlafaxine XR; TEVA-Venlafaxine XR; Venlafaxine XR Warning Drugs like this one have raised the chance of suicidal thoughts or actions in children and young adults. The risk may be greater in people who have had these thoughts or actions in the past. All people who take this drug need to be watched closely. Call the doctor right away if signs like low mood (depression), nervousness, restlessness, grouchiness, panic attacks, or changes in mood or actions are new or worse. Call the doctor right away if any thoughts or actions of suicide occur. This drug is not approved for use in children. Talk with the doctor. What is this drug used for? It is used to treat low mood (depression). It is used to treat anxiety. It is used to treat panic attacks. It may be given to you for other reasons. Talk with the doctor. What do I need to tell my doctor BEFORE I take this drug? If you are allergic to this drug; any part of this drug; or any other drugs, foods, or substances. Tell your doctor about the allergy and what signs you had. If you have high blood pressure. If you are taking a weight loss drug. If you are taking any of these drugs: Linezolid or methylene blue. If you have taken certain drugs for depression or Parkinson's disease in the last 14 days. This includes isocarboxazid, phenelzine, tranylcypromine, selegiline, or rasagiline. Very high blood pressure may happen. This is not a list of all drugs or health problems that interact with this drug. Tell your doctor and pharmacist about all of your drugs (prescription or OTC, natural products, vitamins) and health problems. You must check to make sure that it is safe for you to take this drug with all of your drugs and health problems. Do not start, stop, or change the dose of any drug withoutchecking with your doctor. What are some things I need to know or do while I take this drug? All products: Tell all of your health care providers that you take this drug. This includes your doctors, nurses,pharmacists, and dentists. Avoid driving and doing other tasks or actions that call for you to be alert until you see how thisdrug affects you. Do not stop taking this drug all of a sudden without calling your doctor. You may have a greater risk of side effects. Sometimes, these can be severe and last for a long time. If you need to stop this drug, slowly stop it as ordered by your doctor. Talk with your doctor if you have any new or worsening signs. High blood pressure has happened with this drug. Have your blood pressure checked as you have been told by your doctor. Avoid drinking alcohol while taking this drug. Talk with your doctor before you use marijuana, other forms of cannabis, or prescription or OTC drugs that may slow your actions. This drug may raise the chance of bleeding. Sometimes, bleeding can be life- threatening. Talk with the doctor. Some people may have a higher chance of eye problems with this drug. Your doctor may want you to have an eye exam to see if you have a higher chance of these eye problems. Call your doctor right awayif you have eye pain, change in eyesight, or swelling or redness in or around the eye. Low blood sodium levels may happen with this drug. In very bad cases, this can be deadly. Talk withthe doctor. High cholesterol has happened with this drug. If you have questions, talk with the doctor. This drug may affect certain lab tests. Tell all of your health care providers and lab workers thatyou take this drug. If you are 65 or older, use this drug with care. You could have more side effects. This drug may affect growth in children and teens in some cases. They may need regular growth checks. Talk with the doctor. Tell your doctor if you are , plan on getting , or are breast- feeding. You will need to talk about the benefits and risks to you and the baby. Taking this drug in the third trimester of may lead to some health problems in the . Talk with the doctor. Extended-release capsules: You may see parts of this drug in your stool. This is normal and not a cause for concern. Extended-release tablets: You may see the tablet shell in your stool. This is normal and not a cause for concern. What are some side effects that I need to call my doctor about right away? WARNING/CAUTION: Even though it may be rare, some people may have very bad and sometimes deadly side effects when taking a drug. Tell your doctor or get medical help right away if you have any of thefollowing signs or symptoms that may be related to a very bad side effect: Signs of an allergic reaction, like rash; hives; itching; red, swollen, blistered, or peeling skin with or without fever; wheezing; tightness in the chest or throat; trouble breathing, swallowing, ortalking; unusual hoarseness; or swelling of the mouth, face, lips, tongue, or throat. Signs of low sodium levels like headache, trouble focusing, memory problems, feeling confused, weakness, seizures, or change in balance. Signs of bleeding like throwing up or coughing up blood; vomit that looks like coffee grounds; blood in the urine; black, red, or tarry stools; bleeding from the gums; abnormal vaginal bleeding; bruises without a cause or that get bigger; or bleeding you cannot stop. Signs of high blood pressure like very bad headache or dizziness, passing out, or change in eyesight. Seizures. Chest pain or pressure. Shortness of breath. Cough. Bone pain. Sex problems have happened with drugs like this one. This includes lowered interest in sex, troublehaving an orgasm, ejaculation problems, or trouble getting or keeping an erection. If you have any sex problems or if you have any questions, talk with your doctor. A severe and sometimes deadly problem called serotonin syndrome may happen. The risk may be greaterif you also take certain other drugs. Call your doctor right away if you have agitation; change in balance; confusion; hallucinations; fever; fast or abnormal heartbeat; flushing; muscle twitching orstiffness; seizures; shivering or shaking; sweating a lot; severe diarrhea, upset stomach, or throwi ng up; or very bad headache. What are some other side effects of this drug? All drugs may cause side effects. However, many people have no side effects or only have minor sideeffects. Call your doctor or get medical help if any of these side effects or any other side effects bother you or do not go away: Trouble sleeping. Feeling nervous and excitable. Anxiety. Weight loss. Feeling dizzy, sleepy, tired, or weak. Shakiness. Headache. Sweating a lot. Constipation, diarrhea, stomach pain, upset stomach, throwing up, or feeling less hungry. Gas. Dry mouth. Strange or odd dreams. Yawning. These are not all of the side effects that may occur. If you have questions about side effects, call your doctor. Call your doctor for medical advice about side effects. You may report side effects to your national health agency. How is this drug best taken? Use this drug as ordered by your doctor. Read all information given to you. Follow all instructionsclosely. All products: Take this drug with food. Take this drug at the same time of day. Keep taking this drug as you have been told by your doctor or other health care provider, even if you feel well. Extended-release capsules: Swallow whole. Do not crush, chew, or dissolve the capsule or its contents. You may sprinkle contents of capsule on applesauce. Do not chew. Swallow right away and follow withcool water. Extended-release tablets: Swallow whole. Do not chew, break, or crush. Take with a full glass of water. What do I do if I miss a dose? Take a missed dose as soon as you think about it. If it is close to the time for your next dose, skip the missed dose and go back to your normal time. Do not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 type Post-operative state- Primary Other postprocedural status Post-traumatic arthritis of right ankle documented in this encounter [facility] note* Diagnosis Pain due to bone fixation device, initial encounter ([facility]) Post-traumatic arthritis of right ankle Pre-op examination Preoperative examination, unspecified Palpitations Class 2 obesity without serious comorbidity with body mass index (BMI) of 36.0 to 36.9 in adult, unspecified obesity type PSVT (paroxysmal supraventricular tachycardia) ([facility]) Paroxysmal supraventricular tachycardia Pre-op examination- Primary Preoperative examination, unspecified Post-traumatic arthritis of right ankle Osteoarthritis of right ankle, unspecified osteoarthritis type PSVT (paroxysmal supraventricular tachycardia) ([facility]) Paroxysmal supraventricular tachycardia Migraine with aura and without status migrainosus, not intractable Migraine with aura, without mention of intractable migraine without mention of status migrainosus Mild intermittent asthma without complication Unspecified asthma Gastroesophageal reflux disease without esophagitis Esophageal reflux Class 2 obesity without serious comorbidity with body mass index (BMI) of 36.0 to 36.9 in adult, unspecified obesity type Post-operative state- Primary Other postprocedural status documented in this encounter [facility] note* Diagnosis Pain due to bone fixation device, initial encounter ([facility]) Post-traumatic arthritis of right ankle Pre-op examination Preoperative examination, unspecified Palpitations Class 2 obesity without serious comorbidity with body mass index (BMI) of 36.0 to 36.9 in adult, unspecified obesity type PSVT (paroxysmal supraventricular tachycardia) ([facility]) Paroxysmal supraventricular tachycardia Pre-op examination- Primary Preoperative examination, unspecified Post-traumatic arthritis of right ankle Osteoarthritis of right ankle, unspecified osteoarthritis type PSVT (paroxysmal supraventricular tachycardia) ([facility]) Paroxysmal supraventricular tachycardia Migraine with aura and without status migrainosus, not intractable Migraine with aura, without mention of intractable migraine without mention of status migrainosus Mild intermittent asthma without complication Unspecified asthma Gastroesophageal reflux disease without esophagitis Esophageal reflux Class 2 obesity without serious comorbidity with body mass index (BMI) of 36.0 to 36.9 in adult, unspecified obesity type Post-operative state- Primary Other postprocedural status documented in this encounter [facility] note* Diagnosis Pain due to bone fixation device, initial encounter (HCC) Post-traumatic arthritis of right ankle Pre-op examination Preoperative examination, unspecified Palpitations Class 2 obesity without serious comorbidity with body mass index (BMI) of 36.0 to 36.9 in adult, unspecified obesity type PSVT (paroxysmal supraventricular tachycardia) (HCC) Paroxysmal supraventricular tachycardia Pre-op examination- Primary Preoperative examination, unspecified Post-traumatic arthritis of right ankle Osteoarthritis of right ankle, unspecified osteoarthritis type PSVT (paroxysmal supraventricular tachycardia) (HCC) Paroxysmal supraventricular tachycardia Migraine with aura and without status migrainosus, not intractable Migraine with aura, without mention of intractable migraine without mention of status migrainosus Mild intermittent asthma without complication Unspecified asthma Gastroesophageal reflux disease without esophagitis Esophageal reflux Class 2 obesity without serious comorbidity with body mass index (BMI) of 36.0 to 36.9 in adult, unspecified obesity type Post-operative state- Primary Other postprocedural status documented in this encounter [facility] note* Diagnosis Pain due to bone fixation device, initial encounter (HCC) Post-traumatic arthritis of right ankle Pre-op examination Preoperative examination, unspecified Palpitations Class 2 obesity without serious comorbidity with body mass index (BMI) of 36.0 to 36.9 in adult, unspecified obesity type PSVT (paroxysmal supraventricular tachycardia) (HCC) Paroxysmal supraventricular tachycardia Pre-op examination- Primary Preoperative examination, unspecified Post-traumatic arthritis of right ankle Osteoarthritis of right ankle, unspecified osteoarthritis type PSVT (paroxysmal supraventricular tachycardia) (HCC) Paroxysmal supraventricular tachycardia Migraine with aura and without status migrainosus, not intractable Migraine with aura, without mention of intractable migraine without mention of status migrainosus Mild intermittent asthma without complication Unspecified asthma Gastroesophageal reflux disease without esophagitis Esophageal reflux Class 2 obesity without serious comorbidity with body mass index (BMI) of 36.0 to 36.9 in adult, unspecified obesity type Class 2 obesity without serious comorbidity with body mass index (BMI) of 36.0 to 36.9 in adult, unspecified obesity type- Primary Unable to lose weight Other symptoms concerning nutrition, metabolism, and development PSVT (paroxysmal supraventricular tachycardia) (HCC) Paroxysmal supraventricular tachycardia Metabolic syndrome Dysmetabolic Syndrome X At risk for sleep apnea documented in this encounter [facility] note* Diagnosis Pain due to bone fixation device, initial encounter (HCC) Post-traumatic arthritis of right ankle Pre-op examination Preoperative examination, unspecified Palpitations Class 2 obesity without serious comorbidity with body mass index (BMI) of 36.0 to 36.9 in adult, unspecified obesity type PSVT (paroxysmal supraventricular tachycardia) (HCC) Paroxysmal supraventricular tachycardia Pre-op examination- Primary Preoperative examination, unspecified Post-traumatic arthritis of right ankle Osteoarthritis of right ankle, unspecified osteoarthritis type PSVT (paroxysmal supraventricular tachycardia) (HCC) Paroxysmal supraventricular tachycardia Migraine with aura and without status migrainosus, not intractable Migraine with aura, without mention of intractable migraine without mention of status migrainosus Mild intermittent asthma without complication Unspecified asthma Gastroesophageal reflux disease without esophagitis Esophageal reflux Class 2 obesity without serious comorbidity with body mass index (BMI) of 36.0 to 36.9 in adult, unspecified obesity type Class 2 obesity without serious comorbidity with body mass index (BMI) of 36.0 to 36.9 in adult, unspecified obesity type- Primary Unable to lose weight Other symptoms concerning nutrition, metabolism, and development PSVT (paroxysmal supraventricular tachycardia) (HCC) Paroxysmal supraventricular tachycardia Metabolic syndrome Dysmetabolic Syndrome X documented in this encounter [facility] note* Diagnosis Pain due to bone fixation device, initial encounter Post-traumatic arthritis of right ankle Pre-op examination Preoperative examination, unspecified Palpitations Class 2 obesity without serious comorbidity with body mass index (BMI) of 36.0 to 36.9 in adult, unspecified obesity type PSVT (paroxysmal supraventricular tachycardia) (HCC) Paroxysmal supraventricular tachycardia Pre-op examination- Primary Preoperative examination, unspecified Post-traumatic arthritis of right ankle Osteoarthritis of right ankle, unspecified osteoarthritis type PSVT (paroxysmal supraventricular tachycardia) (HCC) Paroxysmal supraventricular tachycardia Migraine with aura and without status migrainosus, not intractable Migraine with aura, without mention of intractable migraine without mention of status migrainosus Mild intermittent asthma without complication (HCC) Unspecified asthma Gastroesophageal reflux disease without esophagitis Esophageal reflux Class 2 obesity without serious comorbidity with body mass index (BMI) of 36.0 to 36.9 in adult, unspecified obesity type Post-operative state Other postprocedural status [facility] Diagnosis Pain due to bone fixation device, initial encounter Post-traumatic arthritis of right ankle Pre-op examination Preoperative examination, unspecified Palpitations Class 2 obesity without serious comorbidity with body mass index (BMI) of 36.0 to 36.9 in adult, unspecified obesity type PSVT (paroxysmal supraventricular tachycardia) (HCC) Paroxysmal supraventricular tachycardia Pre-op examination- Primary Preoperative examination, unspecified Post-traumatic arthritis of right ankle Osteoarthritis of right ankle, unspecified osteoarthritis type PSVT (paroxysmal supraventricular tachycardia) (HCC) Paroxysmal supraventricular tachycardia Migraine with aura and without status migrainosus, not intractable Migraine with aura, without mention of intractable migraine without mention of status migrainosus Mild intermittent asthma without complication (HCC) Unspecified asthma Gastroesophageal reflux disease without esophagitis Esophageal reflux Class 2 obesity without serious comorbidity with body mass index (BMI) of 36.0 to 36.9 in adult, unspecified obesity type Post-operative state- Primary Other postprocedural status Post-operative state Other postprocedural status documented in this encounter [facility] note* Diagnosis Postop check Follow-up examination, following unspecified surgery documented in this encounter [facility] Work Phone: Evaluation note* Diagnosis Pain due to bone fixation device, initial encounter Post-traumatic arthritis of right ankle Pre-op examination Preoperative examination, unspecified Palpitations Class 2 obesity without serious comorbidity with body mass index (BMI) of 36.0 to 36.9 in adult, unspecified obesity type PSVT (paroxysmal supraventricular tachycardia) (HCC) Paroxysmal supraventricular tachycardia Pre-op examination- Primary Preoperative examination, unspecified Post-traumatic arthritis of right ankle Osteoarthritis of right ankle, unspecified osteoarthritis type PSVT (paroxysmal supraventricular tachycardia) (HCC) Paroxysmal supraventricular tachycardia Migraine with aura and without status migrainosus, not intractable Migraine with aura, without mention of intractable migraine without mention of status migrainosus Mild intermittent asthma without complication (HCC) Unspecified asthma Gastroesophageal reflux disease without esophagitis Esophageal reflux Class 2 obesity without serious comorbidity with body mass index (BMI) of 36.0 to 36.9 in adult, unspecified obesity type Postoperative state- Primary Other postprocedural status documented in this encounter [facility] note* Diagnosis Pain due to bone fixation device, initial encounter Post-traumatic arthritis of right ankle Pre-op examination Preoperative examination, unspecified Palpitations Class 2 obesity without serious comorbidity with body mass index (BMI) of 36.0 to 36.9 in adult, unspecified obesity type PSVT (paroxysmal supraventricular tachycardia) (HCC) Paroxysmal supraventricular tachycardia Pre-op examination- Primary Preoperative examination, unspecified Post-traumatic arthritis of right ankle Osteoarthritis of right ankle, unspecified osteoarthritis type PSVT (paroxysmal supraventricular tachycardia) (HCC) Paroxysmal supraventricular tachycardia Migraine with aura and without status migrainosus, not intractable Migraine with aura, without mention of intractable migraine without mention of status migrainosus Mild intermittent asthma without complication (HCC) Unspecified asthma Gastroesophageal reflux disease without esophagitis Esophageal reflux Class 2 obesity without serious comorbidity with body mass index (BMI) of 36.0 to 36.9 in adult, unspecified obesity type Postoperative state- Primary Other postprocedural status [facility] of ankle [facility] Diagnosis Pain due to bone fixation device, initial encounter Post-traumatic arthritis of right ankle Pre-op examination Preoperative examination, unspecified Palpitations Class 2 obesity without serious comorbidity with body mass index (BMI) of 36.0 to 36.9 in adult, unspecified obesity type PSVT (paroxysmal supraventricular tachycardia) (HCC) Paroxysmal supraventricular tachycardia Pre-op examination- Primary Preoperative examination, unspecified Post-traumatic arthritis of right ankle Osteoarthritis of right ankle, unspecified osteoarthritis type PSVT (paroxysmal supraventricular tachycardia) (HCC) Paroxysmal supraventricular tachycardia Migraine with aura and without status migrainosus, not intractable Migraine with aura, without mention of intractable migraine without mention of status migrainosus Mild intermittent asthma without complication (HCC) Unspecified asthma Gastroesophageal reflux disease without esophagitis Esophageal reflux Class 2 obesity without serious comorbidity with body mass index (BMI) of 36.0 to 36.9 in adult, unspecified obesity type Acute bilateral low back pain without sciatica- Primary Bilateral flank pain Abdominal pain, unspecified site Acute ear pain, bilateral Foul smelling urine Other nonspecific finding on examination of urine [facility] Diagnosis Pain due to bone fixation device, initial encounter Post-traumatic arthritis of right ankle Pre-op examination Preoperative examination, unspecified Palpitations Class 2 obesity without serious comorbidity with body mass index (BMI) of 36.0 to 36.9 in adult, unspecified obesity type PSVT (paroxysmal supraventricular tachycardia) (HCC) Paroxysmal supraventricular tachycardia Pre-op examination- Primary Preoperative examination, unspecified Post-traumatic arthritis of right ankle Osteoarthritis of right ankle, unspecified osteoarthritis type PSVT (paroxysmal supraventricular tachycardia) (HCC) Paroxysmal supraventricular tachycardia Migraine with aura and without status migrainosus, not intractable Migraine with aura, without mention of intractable migraine without mention of status migrainosus Mild intermittent asthma without complication (HCC) Unspecified asthma Gastroesophageal reflux disease without esophagitis Esophageal reflux Class 2 obesity without serious comorbidity with body mass index (BMI) of 36.0 to 36.9 in adult, unspecified obesity type Migraine without aura and without status migrainosus, not intractable- Primary Migraine without aura, without mention of intractable migraine without mention of status migrainosus Chronic tension-type headache, intractable Chronic tension type headache Dizziness and giddiness Visual disturbances Unspecified visual disturbance History of Swain's palsy Personal history of other disorders of nervous system and sense organs [facility] Diagnosis Pain due to bone fixation device, initial encounter Post-traumatic arthritis of right ankle Pre-op examination Preoperative examination, unspecified Palpitations Class 2 obesity without serious comorbidity with body mass index (BMI) of 36.0 to 36.9 in adult, unspecified obesity type PSVT (paroxysmal supraventricular tachycardia) (HCC) Paroxysmal supraventricular tachycardia Pre-op examination- Primary Preoperative examination, unspecified Post-traumatic arthritis of right ankle Osteoarthritis of right ankle, unspecified osteoarthritis type PSVT (paroxysmal supraventricular tachycardia) (HCC) Paroxysmal supraventricular tachycardia Migraine with aura and without status migrainosus, not intractable Migraine with aura, without mention of intractable migraine without mention of status migrainosus Mild intermittent asthma without complication (HCC) Unspecified asthma Gastroesophageal reflux disease without esophagitis Esophageal reflux Class 2 obesity without serious comorbidity with body mass index (BMI) of 36.0 to 36.9 in adult, unspecified obesity type History of ankle surgery- Primary Plantar fasciitis, right Plantar fascial fibromatosis [facility] Diagnosis Pain due to bone fixation device, initial encounter Post-traumatic arthritis of right ankle Pre-op examination Preoperative examination, unspecified Palpitations Class 2 obesity without serious comorbidity with body mass index (BMI) of 36.0 to 36.9 in adult, unspecified obesity type PSVT (paroxysmal supraventricular tachycardia) (HCC) Paroxysmal supraventricular tachycardia Pre-op examination- Primary Preoperative examination, unspecified Post-traumatic arthritis of right ankle Osteoarthritis of right ankle, unspecified osteoarthritis type PSVT (paroxysmal supraventricular tachycardia) (HCC) Paroxysmal supraventricular tachycardia Migraine with aura and without status migrainosus, not intractable Migraine with aura, without mention of intractable migraine without mention of status migrainosus Mild intermittent asthma without complication (HCC) Unspecified asthma Gastroesophageal reflux disease without esophagitis Esophageal reflux Class 2 obesity without serious comorbidity with body mass index (BMI) of 36.0 to 36.9 in adult, unspecified obesity type Migraine without aura and without status migrainosus, not intractable- Primary Migraine without aura, without mention of intractable migraine without mention of status migrainosus Dizziness and giddiness Chronic tension-type headache, intractable Chronic tension type headache Visual disturbances Unspecified visual disturbance documented in this encounter [facility] for referral (narrative)* Diagnostic Procedure Only (Routine) - Pending Review Specialty Diagnoses / Procedures Referred By Broac t Referred To Contact XR IMAGING Diagnoses S/P foot surgery, right Procedures XR ANKLE GENERAL 3V AP/LAT/OBL RIGHT RADEX ANKLE COMPLETE MINIMUM 3 VIEWS Amarjit Storey DPM [address] [place] [address] Xr Imaging Referral ID Status Reason Start Date Expiration Date Visits Requested Visits Authorized [id number] Pending Review Auto-Generat ed Referral 11/18/2021 12/18/2022 1 1 [facility] for referral (narrative)* Diagnostic Procedure Only (Routine) - Pending Review Specialty Diagnoses / Procedures Referred By Contac t Referred To Contact XR IMAGING Diagnoses Arthritis of ankle Procedures XR ANKLE GENERAL 3V AP/LAT/OBL RIGHT RADEX ANKLE COMPLETE MINIMUM 3 VIEWS Amarjit Storey DPM [address] [place] [id number] Xr Imaging Referral ID Status Reason Start Date Expiration Date Visits Requested Visits Authorized [id number] Pending Review Auto-Generat ed Referral 04/19/2022 05/19/2023 1 1 [facility] for referral (narrative)* Diagnostic Procedure Only (Routine) - Pending Review Specialty Diagnoses / Procedures Referred By Contac t Referred To Contact XR IMAGING Diagnoses Arthritis of ankle History of ankle surgery Procedures XR ANKLE GENERAL 3V AP/LAT/OBL RIGHT RADEX ANKLE COMPLETE MINIMUM 3 VIEWS Amarjit Storey DPM [address] [place] [address] Xr Imaging Referral ID Status Reason Start Date Expiration Date Visits Requested Visits Authorized [id number] Pending Review Auto-Generat ed Referral 07/28/2022 08/27/2023 1 1 [facility] for referral (narrative)* Diagnostic Procedure Only (Routine) - Pending Review Specialty Diagnoses / Procedures Referred By Contac t Referred To Contact XR IMAGING Diagnoses Arthritis of ankle History of ankle surgery Procedures XR ANKLE GENERAL 3V AP/LAT/OBL RIGHT RADEX ANKLE COMPLETE MINIMUM 3 VIEWS Amarjit Storey DPM [address] [place] [address] Xr Imaging Referral ID Status Reason Start Date Expiration Date Visits Requested Visits Authorized [id number] Pending Review Auto-Generat ed Referral 10/27/2022 11/26/2023 1 1 [facility] for referral (narrative)* Diagnostic Procedure Only (Routine) - Pending Review Specialty Diagnoses / Procedures Referred By Contac t Referred To Contact [facility] Diagnoses Palpitations Procedures HOME SLEEP APNEA TEST (HSAT) SLEEP STD AIRFLOW HRT RATE&O2 SAT EFFORT UNATT Noelle Blanc, CLINICAL INFORMATICS SPECiGsellDIE DRAWING CHECKER [address] [place] [address] [facility] [place] [address] [place] [id number] Referral ID Status Reason Start Date Expiration Date Visits Requested Visits Authorized [id number] Pending Review Auto-Generat ed Referral 03/31/2023 03/30/2024 1 1 [facility] for referral (narrative)* Outpatient Procedure (Routine) - Closed Specialty Diagnoses / Procedures Referred By Contac t Referred To Contact [facility] Diagnoses Palpitations Procedures ECHO ECHO TTHRC R-T 2D W/WOM-MODE COMPL SPEC&COLR D Noelle Blanc APRN.DIE DRAWING CHECKER [address] [place] [address] [facility] [place] [address] [facility] [place] [address] Referral ID Status Reason Start Date Expiration Date V isits Requested Visits Authorized [id number] Closed Auto-Generate d Referral 04/14/2023 06/13/2023 1 1 [facility] for referral (narrative)* Diagnostic Procedure Only (Routine) - Pending Review Specialty Diagnoses / Procedures Referred By Contac t Referred To Contact XR IMAGING Diagnoses Chronic pain of right ankle Procedures XR ANKLE GENERAL 3V AP/LAT/OBL RIGHT RADEX ANKLE COMPLETE MINIMUM 3 VIEWS Amarjit Storey DPM [address] [address] [place] [address] Referral ID Status Reason Start Date Expiration Date Visits Requested Visits Authorized [id number] Pending Review Auto-Generat ed Referral 05/25/2023 06/23/2024 1 1 [facility] for referral (narrative)* Diagnostic Procedure Only (Routine) - Closed Specialty Diagnoses / Procedures Referred By Contac t Referred To Contact US IMAGING Diagnoses Pain in right lower leg Procedures US DVT LOWER RIGHT DUP-SCAN XTR VEINS UNILATERAL/LIMITED STUDY Noelle Blanc APRN.DIE DRAWING CHECKER [address] [place] [address] [place] [address] Referral ID Status Reason Start Date Expiration Date V isits Requested Visits Authorized [id number] Closed Auto-Generate d Referral 12/26/2023 01/24/2025 1 1 [facility] for referral (narrative)* Diagnostic Procedure Only (Routine) - New Request Specialty Diagnoses / Procedures Referred By Contac t Referred To Contact XR IMAGING Diagnoses Closed fracture of right ankle with routine healing, subsequent encounter Procedures XR ANKLE GENERAL 3V AP/LAT/OBL RIGHT RADEX ANKLE COMPLETE MINIMUM 3 VIEWS Amarjit Storey DPM [address] [place] [address] [place] [address] Referral ID Status Reason Start Date Expiration Date Visits Requested Visits Authorized [id number] New Request Auto-Generat ed Referral 03/28/2024 04/27/2025 1 1 * MRI/CT (Urgent) - Closed Specialty Diagnoses / Procedures Referred By Contac t Referred To Contact CT IMAGING Diagnoses Closed fracture of right ankle with routine healing, subsequent encounter Procedures CT ANKLE WO IVCON RIGHT CT ANKLE WO IVCON RIGHT CT LOWER EXTREMITY W/O CONTRAST MATERIAL Amarjit Storey DPM [address] [place] [address] [place] [address] Referral ID Status Reason Start Date Expiration Date V isits Requested Visits Authorized [id number] Closed Auto-Generate d Referral 03/28/2024 05/27/2024 1 1 * Diagnostic Procedure Only (Routine) - New Request Specialty Diagnoses / Procedures Referred By Contac t Referred To Contact XR IMAGING Diagnoses Closed fracture of right ankle with routine healing, subsequent encounter Procedures XR ANKLE GENERAL 3V AP/LAT/OBL RIGHT RADEX ANKLE COMPLETE MINIMUM 3 VIEWS Amarjit Storey DPM [address] [place] [address] [place] [address] Referral ID Status Reason Start Date Expiration Date Visits Requested Visits Authorized [id number] New Request Auto-Generat ed Referral 03/28/2024 04/27/2025 1 1 [facility] for referral (narrative)* Diagnostic Procedure Only (Routine) - New Request Specialty Diagnoses / Procedures Referred By Sam collazo Referred To Contact XR IMAGING Diagnoses History of ankle surgery Chronic pain of right ankle Post-traumatic arthritis of right ankle Procedures XR ANKLE GENERAL 3V AP/LAT/OBL LEFT RADEX ANKLE COMPLETE MINIMUM 3 VIEWS Amarjit Storey DPM [address] [place] [address] [place] [address] Referral ID Status Reason Start Date Expiration Date Visits Requested Visits Authorized [id number] New Request Auto-Generat ed Referral 05/02/2024 06/01/2025 1 1 [facility] for referral (narrative)* Diagnostic Procedure Only (Routine) - New Request Specialty Diagnoses / Procedures Referred By Sam collazo Referred To Contact XR IMAGING Diagnoses Choking, initial encounter Chronic cough Procedures XR MODIFIED BARIUM SWALLOW W SPEECH THERAPY RADIOLOGIC EXAM SWALLOW FUNCTION CONTRAST STUDY Gayle Aragon PA-C [facility] [address] [place] [address] [place] [address] Referral ID Status Reason Start Date Expiration Date Visits Requested Visits Authorized [id number] New Request Auto-Generat ed Referral 07/23/2024 08/22/2025 1 1 * Outpatient Procedure (Routine) - New Request Specialty Diagnoses / Procedures Referred By Sam collazo Referred To Contact [facility] Diagnoses Sensation of lump in throat Gastroesophageal reflux disease, unspecified whether esophagitis present Heartburn Hoarseness Early satiety Loss of appetite Procedures EGD DIAGNOSTIC ESOPHAGOGASTRODUODENOSC OPY TRANSORAL DIAGNOSTIC Gayle Aragon PA-C 1 [facility] [address] [place] [address] [facility] [place] [address] [place] [address] Referral ID Status Reason Start Date Expiration Date Visits Requested Visits Authorized [id number] New Request Auto-Generat ed Referral 07/23/2024 07/23/[address] [facility] for referral (narrative)* Diagnostic Procedure Only (Routine) - New Request Specialty Diagnoses / Procedures Referred By Contac t Referred To Contact XR IMAGING Diagnoses Post-operative state Procedures XR ANKLE GENERAL 3V AP/LAT/OBL RIGHT RADEX ANKLE COMPLETE MINIMUM 3 VIEWS Amarjit Storey, ALLY [address] [address] [place] [address] Referral ID Status Reason Start Date Expiration Date Visits Requested Visits Authorized [id number] New Request Auto-Generat ed Referral 09/04/2024 10/04/[address] [facility] for visit Narrative* Outpatient Procedure (Routine) - Closed Specialty Diagnoses / Procedures Referred By Contac t Referred To Contact [facility] Diagnoses Palpitations Procedures ECHO ECHO TTHRC R-T 2D W/WOM-MODE COMPL SPEC&COLR D Noelle Blanc, CLINICAL INFORMATICS SPEC.DIE DRAWING CHECKER [address] [place] [address] [facility] [place] [address] [place] [address] Referral ID Status Reason Start Date Expiration Date V isits Requested Visits Authorized [id number] Closed Auto-Generate d Referral 04/14/2023 06/13/2023 1 1 [facility] for visit Narrative* Diagnostic Procedure Only (Routine) - Closed Specialty Diagnoses / Procedures Referred By Contac t Referred To Contact US IMAGING Diagnoses Pain in right lower leg Procedures US DVT LOWER RIGHT DUP-SCAN XTR VEINS UNILATERAL/LIMITED STUDY Noelle Blanc APRN.DIE DRAWING CHECKER [address] [place] [address] [place] [address] Referral ID Status Reason Start Date Expiration Date V isits Requested Visits Authorized [id number] Closed Auto-Generate d Referral 12/26/2023 01/24/2025 1 1 [facility] for visit Narrative* MRI/CT (Routine) - Closed Specialty Diagnoses / Procedures Referred By Sam t Referred To Contact CT IMAGING Diagnoses Post-operative state Procedures CT ANKLE WO IVCON RIGHT CT LOWER EXTREMITY W/O CONTRAST MATERIAL Amarjit Storey DPM [address] [place] [address] Phone: tel: fax: [place] [address] Referral ID Status Reason Start Date Expiration Date V isits Requested Visits Authorized [id number] Closed Auto-Generate d Referral 11/14/2024 01/13/2025 1 1 [facility] Summary Purpose Family History No Family History Records FoundNo Family History Records FoundNo Family History Records FoundNo Family History Records FoundNo Family History Records FoundNo Family History Records FoundNo Family History Records FoundNo Family History Records FoundNo Family History Records FoundNo Family History Records FoundNo Family History Records Found Advance Directives No Advanced Directives Records FoundDocuments on File Type Date 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 Advance Directive(s) 07/27/2021 9:03 AM Advance Directive(s) 07/18/2021 6:16 AM Advance Directive(s) 07/17/2021 11:15 PM Advance Directive(s) 06/19/2021 2:51 PM Advance Directive(s) 01/03/2021 8:36 PM Advance Directive(s) 10/22/2020 11:08 AM Advance Directive(s) 10/10/2020 4:19 PM Advance Directive(s) 09/02/2020 1:07 PM Advance Directive(s) 10/09/2019 9:26 AM Advance Directive(s) 08/19/2019 11:51 AM Advance Directive(s) 07/06/2019 11:03 PM Advance Directive(s) 11/15/2017 7:48 AM Documents on File Type Date 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 Advance Directive(s) 07/27/2021 9:03 AM Advance Directive(s) 07/18/2021 6:16 AM Advance Directive(s) 07/17/2021 11:15 PM Advance Directive(s) 06/19/2021 2:51 PM Advance Directive(s) 01/03/2021 8:36 PM Advance Directive(s) 10/22/2020 11:08 AM Advance Directive(s) 10/10/2020 4:19 PM Advance Directive(s) 09/02/2020 1:07 PM Advance Directive(s) 10/09/2019 9:26 AM Advance Directive(s) 08/19/2019 11:51 AM Advance Directive(s) 07/06/2019 11:03 PM Advance Directive(s) 11/15/2017 7:48 AM Advance Directive Response Recorded Date/ Time Advance Directives No July 4:57pm Living Will No January 09, 2021 9 :54am Power of Allergy Nurse No January 09, 2021 9:54am Latest Code Status on File Code Status Date Activated Date Inactivated Comments Full Code 08/31/2023 11:22 AM Question Answer Comments Plan of Care: Code Status Discussion Completed Decision Maker: Patient Latest Code Status on File Code Status Date Activated Date Inactivated Comments Full Code 08/31/2023 11:22 AM Question Answer Comments Plan of Care: Code Status Discussion Completed Decision Maker: Patient Date Activated Date Inactivated Comments 08/18/2024 12:50 AM 08/19/2024 5:27 PM Question Answer Comments Full Code Order Discussed With: Patient Date Activated Date Inactivated Comments 08/18/2024 12:50 AM 08/19/2024 5:27 PM Question Answer Comments Full Code Order Discussed With: Patient Date Activated Date Inactivated Comments 08/31/2023 11:22 AM Question Answer Comments Plan of Care: Code Status Discussion Completed Decision Maker: Patient Chief Complaint and Reason for Visit Chief Complaint POST OPERATIVE FOOT/ ANKLE. RX HERE Medications Administered Section Inactive Administered Medications - up to 3 most recent administrations Medication Order MAR Action Action Date Dose Rate Site bupivacaine (PF) 0.25 % (2.5 mg/mL) 2 mL injection (SENSORCAINE MPF) 2 mL, Injection - FOR ORTHO USE ONLY, ONE TIME INJECTION, 1 dose, Starting on 07/03/22 at 1150, Until 07/03/22 at 1150 Given 07/03/2022 11:50 AM EST 2 mL Ankle, Right methylPREDNISolone acetate 20 mg injection (DEPO-Medrol) 20 mg, Injection - FOR ORTHO USE ONLY, ONE TIME INJECTION, 1 dose, Starting on 07/03/22 at 1150, Until 07/03/22 at 1150 Given 07/03/2022 11:50 AM EST 20 mg Ankle, Right triamcinolone acetonide 20 mg injection (KeNALog 40) 20 mg, Injection - FOR ORTHO USE ONLY, ONE TIME INJECTION, 1 dose, Starting on 07/03/22 at 1150, Until 07/03/22 at 1150 Given 07/03/2022 11:50 AM EST 20 mg Ankle, Right Reason for Referral Specialty Diagnoses / Procedures Referred By Contac t Referred To Contact Radiology Diagnoses Irregular bleeding Procedures US PELVIS TRANSABDOMINAL WITH TRANSVAGINAL Maria D Ortega MD [address] [facility], [facility] [address] [place] [address] Referral ID Status Reason Start Date Expiration Date Visits Requested Visits Authorized [id number] Authorized Perform Procedure 3 07/02/2024 1 1 Specialty Diagnoses / Procedures Referred By Contac t Referred To Contact [facility] Diagnoses Muscle tightness Pain of right lower leg Status post open reduction with internal fixation (ORIF) of fracture of ankle Procedures CONSULT TO PHYSICAL THERAPY PHYSICAL THERAPY EVALUATION HIGH COMPLEX 45 MINS Noelle Blanc, CLINICAL INFORMATICS SPEC.DIE DRAWING CHECKER [address] [place] [address] [facility] [place] [address] [place] [address] Referral ID Status Reason Start Date Expiration Date Visits Requested Visits Authorized [id number] Pending Review Auto-Generat ed Referral 12/27/2023 12/26/2024 1 1 Specialty Diagnoses / Procedures Referred By Contac t Referred To Contact CT IMAGING Diagnoses Closed fracture of right ankle with routine healing, subsequent encounter Procedures CT ANKLE WO IVCON RIGHT CT ANKLE WO IVCON RIGHT CT LOWER EXTREMITY W/O CONTRAST MATERIAL Amarjit Storey DPM [address] [place] [address] [place] [address] Referral ID Status Reason Start Date Expiration Date V isits Requested Visits Authorized [id number] Closed Auto-Generate d Referral 03/28/2024 05/27/2024 1 1 Specialty Diagnoses / Procedures Referred By Contac t Referred To Contact Gastroenterology Diagnoses Class 2 obesity without serious comorbidity with body mass index (BMI) of 36.0 to 36.9 in adult, unspecified obesity type PTSD (post-traumatic stress disorder) PSVT (paroxysmal supraventricular tachycardia) (HCC) Dietary counseling and surveillance BMI 35.0-35.9,adult Procedures CONSULT TO GASTROENTEROLOGY OFFICE/OUTPATIENT [facility] 60 MINUTES Lyle Sykes, CLINICAL INFORMATICS SPEC.DIE DRAWING CHECKER [address] [place] [address] Referral ID Status Reason Start Date Expiration Date Visits Requested Visits Authorized [id number] Authorized PCP Requested Referral 4 09/02/2024 1 1 Additional Source Comments INFORMATION SOURCE (unrecogn ized section and content) DATE CREATED AUTHOR 09/11/2020 [employer] DATE CREATED AUTHOR AUTHOR'S ORGANIZ ATION 10/23/2020 [facility] DATE CREATED AUTHOR AUTHOR'S ORGANIZ ATION 12/25/2020 [facility] DATE CREATED AUTHOR AUTHOR'S ORGANIZ ATION 06/29/2021 [facility] DATE CREATED AUTHOR AUTHOR'S ORGANIZ ATION 08/19/2023 [facility] DATE CREATED AUTHOR AUTHOR'S ORGANIZ ATION 08/24/2023 [facility] DATE CREATED AUTHOR AUTHOR'S ORGANIZ ATION 02/09/2024 [facility] DATE CREATED AUTHOR AUTHOR'S ORGANIZ ATION 02/22/2024 [facility] DATE CREATED AUTHOR AUTHOR'S ORGANIZ ATION 05/04/2024 [facility] DATE CREATED AUTHOR AUTHOR'S ORGANIZ ATION 12/24/2024 [facility] DATE CREATED AUTHOR AUTHOR'S ORGANIZ ATION 05/04/2025 [facility] Source Comments (unrecognize d section and content) In the event this informatio n is protected by the Federal Confidentiality of Alcohol and Drug Abuse Patient Records regulations: The Federal rules restrict any use of the information to criminally investigate or prosecute any alcohol or drug abuse patient.[facility] the event this information is protected by the Federal Confidentiality of Alcohol and Drug Abuse Patient Records regulations: The Federal rules restrict any use of the information to criminally investigate or prosecute any alcohol or drug abuse patient.[facility] the event this information is protected by the Federal Confidentiality of Alcohol and Drug Abuse Patient Records regulations: The Federal rules restrict any use of the information to criminally investigate or prosecute any alcohol or drug abuse patient.[facility]In the event this information is protected by the Federal Confidentiality of Alcohol and Drug Abuse Patient Records regulations: The Federal rules restrict any use of the information to criminally investigate or prosecute any alcohol or drug abuse patient.[facility] HospitalIn the event this information is protected by the Federal Confidentiality of Alcohol and Drug Abuse Patient Records regulations: The Federal rules restrict any use of the information to criminally investigate or prosecute any alcohol or drug abuse patient.[facility]In the event this information is protected by the Federal Confidentiality of Alcohol and Drug Abuse Patient Records regulations: The Federal rules restrict any use of the information to criminally investigate or prosecute any alcohol or drug abuse patient.[facility] HospitalIn the event this information is protected by the Federal Confidentiality of Alcohol and Drug Abuse Patient Records regulations: The Federal rules restrict any use of the information to criminally investigate or prosecute any alcohol or drug abuse patient.[facility] HospitalIn the event this information is protected by the Federal Confidentiality of Alcohol and Drug Abuse Patient Records regulations: The Federal rules restrict any use of the information to criminally investigate or prosecute any alcohol or drug abuse patient.[facility] HospitalIn the event this information is protected by the Federal Confidentiality of Alcohol and Drug Abuse Patient Records regulations: The Federal rules restrict any use of the information to criminally investigate or prosecute any alcohol or drug abuse patient.[facility] HospitalIn the event this information is protected by the Federal Confidentiality of Alcohol and Drug Abuse Patient Records regulations: The Federal rules restrict any use of the information to criminally investigate or prosecute any alcohol or drug abuse patient.[facility] HospitalIn the event this information is protected by the Federal Confidentiality of Alcohol and Drug Abuse Patient Records regulations: The Federal rules restrict any use of the information to criminally investigate or prosecute any alcohol or drug abuse patient.[facility] HospitalIn the event this information is protected by the Federal Confidentiality of Alcohol and Drug Abuse Patient Records regulations: The Federal rules restrict any use of the information to criminally investigate or prosecute any alcohol or drug abuse patient.[facility] HospitalIn the event this information is protected by the Federal Confidentiality of Alcohol and Drug Abuse Patient Records regulations: The Federal rules restrict any use of the information to criminally investigate or prosecute any alcohol or drug abuse patient.[facility] HospitalIn the event this information is protected by the Federal Confidentiality of Alcohol and Drug Abuse Patient Records regulations: The Federal rules restrict any use of the information to criminally investigate or prosecute any alcohol or drug abuse patient.[facility] HospitalIn the event this information is protected by the Federal Confidentiality of Alcohol and Drug Abuse Patient Records regulations: The Federal rules restrict any use of the information to criminally investigate or prosecute any alcohol or drug abuse patient.[facility] HospitalIn the event this information is protected by the Federal Confidentiality of Alcohol and Drug Abuse Patient Records regulations: The Federal rules restrict any use of the information to criminally investigate or prosecute any alcohol or drug abuse patient.[facility] HospitalIn the event this information is protected by the Federal Confidentiality of Alcohol and Drug Abuse Patient Records regulations: The Federal rules restrict any use of the information to criminally investigate or prosecute any alcohol or drug abuse patient.[facility] HospitalIn the event this information is protected by the Federal Confidentiality of Alcohol and Drug Abuse Patient Records regulations: The Federal rules restrict any use of the information to criminally investigate or prosecute any alcohol or drug abuse patient.[facility] HospitalIn the event this information is protected by the Federal Confidentiality of Alcohol and Drug Abuse Patient Records regulations: The Federal rules restrict any use of the information to criminally investigate or prosecute any alcohol or drug abuse patient.[facility] HospitalIn the event this information is protected by the Federal Confidentiality of Alcohol and Drug Abuse Patient Records regulations: The Federal rules restrict any use of the information to criminally investigate or prosecute any alcohol or drug abuse patient.[facility] HospitalIn the event this information is protected by the Federal Confidentiality of Alcohol and Drug Abuse Patient Records regulations: The Federal rules restrict any use of the information to criminally investigate or prosecute any alcohol or drug abuse patient.[facility] HospitalIn the event this information is protected by the Federal Confidentiality of Alcohol and Drug Abuse Patient Records regulations: The Federal rules restrict any use of the information to criminally investigate or prosecute any alcohol or drug abuse patient.[facility] HospitalIn the event this information is protected by the Federal Confidentiality of Alcohol and Drug Abuse Patient Records regulations: The Federal rules restrict any use of the information to criminally investigate or prosecute any alcohol or drug abuse patient.[facility] HospitalIn the event this information is protected by the Federal Confidentiality of Alcohol and Drug Abuse Patient Records regulations: The Federal rules restrict any use of the information to criminally investigate or prosecute any alcohol or drug abuse patient.[facility] HospitalIn the event this information is protected by the Federal Confidentiality of Alcohol and Drug Abuse Patient Records regulations: The Federal rules restrict any use of the information to criminally investigate or prosecute any alcohol or drug abuse patient.[facility] HospitalIn the event this information is protected by the Federal Confidentiality of Alcohol and Drug Abuse Patient Records regulations: The Federal rules restrict any use of the information to criminally investigate or prosecute any alcohol or drug abuse patient.[facility] HospitalIn the event this information is protected by the Federal Confidentiality of Alcohol and Drug Abuse Patient Records regulations: The Federal rules restrict any use of the information to criminally investigate or prosecute any alcohol or drug abuse patient.[facility] HospitalIn the event this information is protected by the Federal Confidentiality of Alcohol and Drug Abuse Patient Records regulations: The Federal rules restrict any use of the information to criminally investigate or prosecute any alcohol or drug abuse patient.[facility] HospitalIn the event this information is protected by the Federal Confidentiality of Alcohol and Drug Abuse Patient Records regulations: The Federal rules restrict any use of the information to criminally investigate or prosecute any alcohol or drug abuse patient.[facility] HospitalIn the event this information is protected by the Federal Confidentiality of Alcohol and Drug Abuse Patient Records regulations: The Federal rules restrict any use of the information to criminally investigate or prosecute any alcohol or drug abuse patient.[facility] HospitalIn the event this information is protected by the Federal Confidentiality of Alcohol and Drug Abuse Patient Records regulations: The Federal rules restrict any use of the information to criminally investigate or prosecute any alcohol or drug abuse patient.[facility] HospitalIn the event this information is protected by the Federal Confidentiality of Alcohol and Drug Abuse Patient Records regulations: The Federal rules restrict any use of the information to criminally investigate or prosecute any alcohol or drug abuse patient.[facility] HospitalIn the event this information is protected by the Federal Confidentiality of Alcohol and Drug Abuse Patient Records regulations: The Federal rules restrict any use of the information to criminally investigate or prosecute any alcohol or drug abuse patient.[facility] HospitalIn the event this information is protected by the Federal Confidentiality of Alcohol and Drug Abuse Patient Records regulations: The Federal rules restrict any use of the information to criminally investigate or prosecute any alcohol or drug abuse patient.[facility]In the event this information is protected by the Federal Confidentiality of Alcohol and Drug Abuse Patient Records regulations: The Federal rules restrict any use of the information to criminally investigate or prosecute any alcohol or drug abuse patient.[facility] HospitalIn the event this information is protected by the Federal Confidentiality of Alcohol and Drug Abuse Patient Records regulations: The Federal rules restrict any use of the information to criminally investigate or prosecute any alcohol or drug abuse patient.[facility] HospitalIn the event this information is protected by the Federal Confidentiality of Alcohol and Drug Abuse Patient Records regulations: The Federal rules restrict any use of the information to criminally investigate or prosecute any alcohol or drug abuse patient.[facility] HospitalIn the event this information is protected by the Federal Confidentiality of Alcohol and Drug Abuse Patient Records regulations: The Federal rules restrict any use of the information to criminally investigate or prosecute any alcohol or drug abuse patient.[facility] HospitalIn the event this information is protected by the Federal Confidentiality of Alcohol and Drug Abuse Patient Records regulations: The Federal rules restrict any use of the information to criminally investigate or prosecute any alcohol or drug abuse patient.[facility] HospitalIn the event this information is protected by the Federal Confidentiality of Alcohol and Drug Abuse Patient Records regulations: The Federal rules restrict any use of the information to criminally investigate or prosecute any alcohol or drug abuse patient.[facility] the event this information is protected by the Federal Confidentiality of Alcohol and Drug Abuse Patient Records regulations: The Federal rules restrict any use of the information to criminally investigate or prosecute any alcohol or drug abuse patient.[facility] HospitalIn the event this information is protected by the Federal Confidentiality of Alcohol and Drug Abuse Patient Records regulations: The Federal rules restrict any use of the information to criminally investigate or prosecute any alcohol or drug abuse patient.[facility] HospitalIn the event this information is protected by the Federal Confidentiality of Alcohol and Drug Abuse Patient Records regulations: The Federal rules restrict any use of the information to criminally investigate or prosecute any alcohol or drug abuse patient.[facility] HospitalIn the event this information is protected by the Federal Confidentiality of Alcohol and Drug Abuse Patient Records regulations: The Federal rules restrict any use of the information to criminally investigate or prosecute any alcohol or drug abuse patient.[facility] HospitalIn the event this information is protected by the Federal Confidentiality of Alcohol and Drug Abuse Patient Records regulations: The Federal rules restrict any use of the information to criminally investigate or prosecute any alcohol or drug abuse patient.[facility] HospitalIn the event this information is protected by the Federal Confidentiality of Alcohol and Drug Abuse Patient Records regulations: The Federal rules restrict any use of the information to criminally investigate or prosecute any alcohol or drug abuse patient.[facility] HospitalIn the event this information is protected by the Federal Confidentiality of Alcohol and Drug Abuse Patient Records regulations: The Federal rules restrict any use of the information to criminally investigate or prosecute any alcohol or drug abuse patient.[facility] HospitalIn the event this information is protected by the Federal Confidentiality of Alcohol and Drug Abuse Patient Records regulations: The Federal rules restrict any use of the information to criminally investigate or prosecute any alcohol or drug abuse patient.[facility] HospitalIn the event this information is protected by the Federal Confidentiality of Alcohol and Drug Abuse Patient Records regulations: The Federal rules restrict any use of the information to criminally investigate or prosecute any alcohol or drug abuse patient.[facility] HospitalIn the event this information is protected by the Federal Confidentiality of Alcohol and Drug Abuse Patient Records regulations: The Federal rules restrict any use of the information to criminally investigate or prosecute any alcohol or drug abuse patient.[facility] HospitalIn the event this information is protected by the Federal Confidentiality of Alcohol and Drug Abuse Patient Records regulations: The Federal rules restrict any use of the information to criminally investigate or prosecute any alcohol or drug abuse patient.[facility] HospitalIn the event this information is protected by the Federal Confidentiality of Alcohol and Drug Abuse Patient Records regulations: The Federal rules restrict any use of the information to criminally investigate or prosecute any alcohol or drug abuse patient.[facility] HospitalIn the event this information is protected by the Federal Confidentiality of Alcohol and Drug Abuse Patient Records regulations: The Federal rules restrict any use of the information to criminally investigate or prosecute any alcohol or drug abuse patient.[facility] HospitalIn the event this information is protected by the Federal Confidentiality of Alcohol and Drug Abuse Patient Records regulations: The Federal rules restrict any use of the information to criminally investigate or prosecute any alcohol or drug abuse patient.[facility] HospitalIn the event this information is protected by the Federal Confidentiality of Alcohol and Drug Abuse Patient Records regulations: The Federal rules restrict any use of the information to criminally investigate or prosecute any alcohol or drug abuse patient.[facility] HospitalIn the event this information is protected by the Federal Confidentiality of Alcohol and Drug Abuse Patient Records regulations: The Federal rules restrict any use of the information to criminally investigate or prosecute any alcohol or drug abuse patient.[facility] HospitalIn the event this information is protected by the Federal Confidentiality of Alcohol and Drug Abuse Patient Records regulations: The Federal rules restrict any use of the information to criminally investigate or prosecute any alcohol or drug abuse patient.[facility] HospitalIn the event this information is protected by the Federal Confidentiality of Alcohol and Drug Abuse Patient Records regulations: The Federal rules restrict any use of the information to criminally investigate or prosecute any alcohol or drug abuse patient.[facility] HospitalIn the event this information is protected by the Federal Confidentiality of Alcohol and Drug Abuse Patient Records regulations: The Federal rules restrict any use of the information to criminally investigate or prosecute any alcohol or drug abuse patient.[facility] HospitalIn the event this information is protected by the Federal Confidentiality of Alcohol and Drug Abuse Patient Records regulations: The Federal rules restrict any use of the information to criminally investigate or prosecute any alcohol or drug abuse patient.[facility] HospitalIn the event this information is protected by the Federal Confidentiality of Alcohol and Drug Abuse Patient Records regulations: The Federal rules restrict any use of the information to criminally investigate or prosecute any alcohol or drug abuse patient.[facility] HospitalIn the event this information is protected by the Federal Confidentiality of Alcohol and Drug Abuse Patient Records regulations: The Federal rules restrict any use of the information to criminally investigate or prosecute any alcohol or drug abuse patient.[facility] HospitalIn the event this information is protected by the Federal Confidentiality of Alcohol and Drug Abuse Patient Records regulations: The Federal rules restrict any use of the information to criminally investigate or prosecute any alcohol or drug abuse patient.[facility] HospitalIn the event this information is protected by the Federal Confidentiality of Alcohol and Drug Abuse Patient Records regulations: The Federal rules restrict any use of the information to criminally investigate or prosecute any alcohol or drug abuse patient.[facility] HospitalIn the event this information is protected by the Federal Confidentiality of Alcohol and Drug Abuse Patient Records regulations: The Federal rules restrict any use of the information to criminally investigate or prosecute any alcohol or drug abuse patient.[facility] HospitalIn the event this information is protected by the Federal Confidentiality of Alcohol and Drug Abuse Patient Records regulations: The Federal rules restrict any use of the information to criminally investigate or prosecute any alcohol or drug abuse patient.[facility] HospitalIn the event this information is protected by the Federal Confidentiality of Alcohol and Drug Abuse Patient Records regulations: The Federal rules restrict any use of the information to criminally investigate or prosecute any alcohol or drug abuse patient.[facility] HospitalIn the event this information is protected by the Federal Confidentiality of Alcohol and Drug Abuse Patient Records regulations: The Federal rules restrict any use of the information to criminally investigate or prosecute any alcohol or drug abuse patient.[facility] HospitalIn the event this information is protected by the Federal Confidentiality of Alcohol and Drug Abuse Patient Records regulations: The Federal rules restrict any use of the information to criminally investigate or prosecute any alcohol or drug abuse patient.[facility] HospitalIn the event this information is protected by the Federal Confidentiality of Alcohol and Drug Abuse Patient Records regulations: The Federal rules restrict any use of the information to criminally investigate or prosecute any alcohol or drug abuse patient.[facility] HospitalIn the event this information is protected by the Federal Confidentiality of Alcohol and Drug Abuse Patient Records regulations: The Federal rules restrict any use of the information to criminally investigate or prosecute any alcohol or drug abuse patient.[facility] HospitalIn the event this information is protected by the Federal Confidentiality of Alcohol and Drug Abuse Patient Records regulations: The Federal rules restrict any use of the information to criminally investigate or prosecute any alcohol or drug abuse patient.[facility] HospitalIn the event this information is protected by the Federal Confidentiality of Alcohol and Drug Abuse Patient Records regulations: The Federal rules restrict any use of the information to criminally investigate or prosecute any alcohol or drug abuse patient.[facility] HospitalIn the event this information is protected by the Federal Confidentiality of Alcohol and Drug Abuse Patient Records regulations: The Federal rules restrict any use of the information to criminally investigate or prosecute any alcohol or drug abuse patient.[facility] HospitalIn the event this information is protected by the Federal Confidentiality of Alcohol and Drug Abuse Patient Records regulations: The Federal rules restrict any use of the information to criminally investigate or prosecute any alcohol or drug abuse patient.[facility] HospitalIn the event this information is protected by the Federal Confidentiality of Alcohol and Drug Abuse Patient Records regulations: The Federal rules restrict any use of the information to criminally investigate or prosecute any alcohol or drug abuse patient.[facility] HospitalIn the event this information is protected by the Federal Confidentiality of Alcohol and Drug Abuse Patient Records regulations: The Federal rules restrict any use of the information to criminally investigate or prosecute any alcohol or drug abuse patient.[facility] HospitalIn the event this information is protected by the Federal Confidentiality of Alcohol and Drug Abuse Patient Records regulations: The Federal rules restrict any use of the information to criminally investigate or prosecute any alcohol or drug abuse patient.[facility] HospitalIn the event this information is protected by the Federal Confidentiality of Alcohol and Drug Abuse Patient Records regulations: The Federal rules restrict any use of the information to criminally investigate or prosecute any alcohol or drug abuse patient.[facility] HospitalIn the event this information is protected by the Federal Confidentiality of Alcohol and Drug Abuse Patient Records regulations: The Federal rules restrict any use of the information to criminally investigate or prosecute any alcohol or drug abuse patient.[facility] HospitalIn the event this information is protected by the Federal Confidentiality of Alcohol and Drug Abuse Patient Records regulations: The Federal rules restrict any use of the information to criminally investigate or prosecute any alcohol or drug abuse patient.[facility] HospitalIn the event this information is protected by the Federal Confidentiality of Alcohol and Drug Abuse Patient Records regulations: The Federal rules restrict any use of the information to criminally investigate or prosecute any alcohol or drug abuse patient.[facility] HospitalIn the event this information is protected by the Federal Confidentiality of Alcohol and Drug Abuse Patient Records regulations: The Federal rules restrict any use of the information to criminally investigate or prosecute any alcohol or drug abuse patient.[facility] HospitalIn the event this information is protected by the Federal Confidentiality of Alcohol and Drug Abuse Patient Records regulations: The Federal rules restrict any use of the information to criminally investigate or prosecute any alcohol or drug abuse patient.[facility] HospitalIn the event this information is protected by the Federal Confidentiality of Alcohol and Drug Abuse Patient Records regulations: The Federal rules restrict any use of the information to criminally investigate or prosecute any alcohol or drug abuse patient.[facility] HospitalIn the event this information is protected by the Federal Confidentiality of Alcohol and Drug Abuse Patient Records regulations: The Federal rules restrict any use of the information to criminally investigate or prosecute any alcohol or drug abuse patient.[facility] HospitalIn the event this information is protected by the Federal Confidentiality of Alcohol and Drug Abuse Patient Records regulations: The Federal rules restrict any use of the information to criminally investigate or prosecute any alcohol or drug abuse patient.[facility] HospitalIn the event this information is protected by the Federal Confidentiality of Alcohol and Drug Abuse Patient Records regulations: The Federal rules restrict any use of the information to criminally investigate or prosecute any alcohol or drug abuse patient.[facility] HospitalIn the event this information is protected by the Federal Confidentiality of Alcohol and Drug Abuse Patient Records regulations: The Federal rules restrict any use of the information to criminally investigate or prosecute any alcohol or drug abuse patient.[facility] HospitalIn the event this information is protected by the Federal Confidentiality of Alcohol and Drug Abuse Patient Records regulations: The Federal rules restrict any use of the information to criminally investigate or prosecute any alcohol or drug abuse patient.[facility] the event this information is protected by the Federal Confidentiality of Alcohol and Drug Abuse Patient Records regulations: The Federal rules restrict any use of the information to criminally investigate or prosecute any alcohol or drug abuse patient.[facility] HospitalIn the event this information is protected by the Federal Confidentiality of Alcohol and Drug Abuse Patient Records regulations: The Federal rules restrict any use of the information to criminally investigate or prosecute any alcohol or drug abuse patient.[facility] HospitalIn the event this information is protected by the Federal Confidentiality of Alcohol and Drug Abuse Patient Records regulations: The Federal rules restrict any use of the information to criminally investigate or prosecute any alcohol or drug abuse patient.[facility] HospitalIn the event this information is protected by the Federal Confidentiality of Alcohol and Drug Abuse Patient Records regulations: The Federal rules restrict any use of the information to criminally investigate or prosecute any alcohol or drug abuse patient.[facility] HospitalIn the event this information is protected by the Federal Confidentiality of Alcohol and Drug Abuse Patient Records regulations: The Federal rules restrict any use of the information to criminally investigate or prosecute any alcohol or drug abuse patient.[facility] HospitalIn the event this information is protected by the Federal Confidentiality of Alcohol and Drug Abuse Patient Records regulations: The Federal rules restrict any use of the information to criminally investigate or prosecute any alcohol or drug abuse patient.[facility] HospitalIn the event this information is protected by the Federal Confidentiality of Alcohol and Drug Abuse Patient Records regulations: The Federal rules restrict any use of the information to criminally investigate or prosecute any alcohol or drug abuse patient.[facility] HospitalIn the event this information is protected by the Federal Confidentiality of Alcohol and Drug Abuse Patient Records regulations: The Federal rules restrict any use of the information to criminally investigate or prosecute any alcohol or drug abuse patient.[facility] HospitalIn the event this information is protected by the Federal Confidentiality of Alcohol and Drug Abuse Patient Records regulations: The Federal rules restrict any use of the information to criminally investigate or prosecute any alcohol or drug abuse patient.[facility] HospitalIn the event this information is protected by the Federal Confidentiality of Alcohol and Drug Abuse Patient Records regulations: The Federal rules restrict any use of the information to criminally investigate or prosecute any alcohol or drug abuse patient.[facility] HospitalIn the event this information is protected by the Federal Confidentiality of Alcohol and Drug Abuse Patient Records regulations: The Federal rules restrict any use of the information to criminally investigate or prosecute any alcohol or drug abuse patient.[facility] HospitalIn the event this information is protected by the Federal Confidentiality of Alcohol and Drug Abuse Patient Records regulations: The Federal rules restrict any use of the information to criminally investigate or prosecute any alcohol or drug abuse patient.[facility] HospitalIn the event this information is protected by the Federal Confidentiality of Alcohol and Drug Abuse Patient Records regulations: The Federal rules restrict any use of the information to criminally investigate or prosecute any alcohol or drug abuse patient.[facility] HospitalIn the event this information is protected by the Federal Confidentiality of Alcohol and Drug Abuse Patient Records regulations: The Federal rules restrict any use of the information to criminally investigate or prosecute any alcohol or drug abuse patient.[facility] HospitalIn the event this information is protected by the Federal Confidentiality of Alcohol and Drug Abuse Patient Records regulations: The Federal rules restrict any use of the information to criminally investigate or prosecute any alcohol or drug abuse patient.[facility] HospitalIn the event this information is protected by the Federal Confidentiality of Alcohol and Drug Abuse Patient Records regulations: The Federal rules restrict any use of the information to criminally investigate or prosecute any alcohol or drug abuse patient.[facility] HospitalIn the event this information is protected by the Federal Confidentiality of Alcohol and Drug Abuse Patient Records regulations: The Federal rules restrict any use of the information to criminally investigate or prosecute any alcohol or drug abuse patient.[facility] HospitalIn the event this information is protected by the Federal Confidentiality of Alcohol and Drug Abuse Patient Records regulations: The Federal rules restrict any use of the information to criminally investigate or prosecute any alcohol or drug abuse patient.[facility] HospitalIn the event this information is protected by the Federal Confidentiality of Alcohol and Drug Abuse Patient Records regulations: The Federal rules restrict any use of the information to criminally investigate or prosecute any alcohol or drug abuse patient.[facility] HospitalIn the event this information is protected by the Federal Confidentiality of Alcohol and Drug Abuse Patient Records regulations: The Federal rules restrict any use of the information to criminally investigate or prosecute any alcohol or drug abuse patient.[facility] HospitalIn the event this information is protected by the Federal Confidentiality of Alcohol and Drug Abuse Patient Records regulations: The Federal rules restrict any use of the information to criminally investigate or prosecute any alcohol or drug abuse patient.[facility] HospitalIn the event this information is protected by the Federal Confidentiality of Alcohol and Drug Abuse Patient Records regulations: The Federal rules restrict any use of the information to criminally investigate or prosecute any alcohol or drug abuse patient.[facility] HospitalIn the event this information is protected by the Federal Confidentiality of Alcohol and Drug Abuse Patient Records regulations: The Federal rules restrict any use of the information to criminally investigate or prosecute any alcohol or drug abuse patient.[facility] HospitalIn the event this information is protected by the Federal Confidentiality of Alcohol and Drug Abuse Patient Records regulations: The Federal rules restrict any use of the information to criminally investigate or prosecute any alcohol or drug abuse patient.[facility] HospitalIn the event this information is protected by the Federal Confidentiality of Alcohol and Drug Abuse Patient Records regulations: The Federal rules restrict any use of the information to criminally investigate or prosecute any alcohol or drug abuse patient.[facility] HospitalIn the event this information is protected by the Federal Confidentiality of Alcohol and Drug Abuse Patient Records regulations: The Federal rules restrict any use of the information to criminally investigate or prosecute any alcohol or drug abuse patient.[facility] Reason for Visit (unrecogniz ed section and content) Reason Comments Patient Question Reason Comments Anxiety Reason Comments Post Op Specialty Diagnoses / Procedures Referred By Contac t Referred To Contact Podiatry / ORTHOPAEDIC SURGERY Diagnoses RT ANKLE Procedures POST OP Self CordeliaAmarjit leon Mateusz, DPVivian [address] [address] Referral ID Status Reason Start Date Expiration Date V isits Requested Visits Authorized [id number] Outside PCP 11/18/2021 02/16/2022 1 1 Reason Comments Anxiety patient states it is a little better Reason Comments Missed Appointment 1st no show in 365 d ays (1st letter sent) Reason Comments Appointment Cancelled Reason Comments Follow Up Reason Onset Date Comments Refill Request 05/13/2022 Reason Onset Date Comments Refill Request 06/07/2022 Reason Comments Follow Up Reason Onset Date Comments Refill Request 09/19/2022 Reason Onset Date Comments Refill Request 12/14/2022 Reason Comments Established Patient Reason Comments Orders Reason Comments ER F/U Reason Comments orthostatic vital check Reason Onset Date Comments Refill Request 04/18/2023 Reason Comments Results Reason Onset Date Comments Refill Request 05/02/2023 Reason Comments 4 week f/u Reason Comments Follow Up Pain Swelling Reason Comments Abnormal bleeding Specialty Diagnoses / Procedures Referred By Sam t Referred To Contact Radiology Diagnoses Irregular bleeding Procedures US PELVIS TRANSABDOMINAL WITH TRANSVAGINAL Maria D Ortega MD [address] [facility], [address] [address] Referral ID Status Reason Start Date Expiration Date Visits Requested Visits Authorized [id number] Authorized Perform Procedure 3 07/02/2024 1 1 Reason Onset Date Comments Refill Request 07/12/2023 Reason Comments Results Patient is here to d iscuss Ultrasound Results. Reason Comments Pre-op Visit Patient is here toda y for a pre- op exam for an Ablation and to also have an endometrial Biopsy done in office. Specialty Diagnoses / Procedures [facility] Referred To Contact Diagnoses Menorrhagia with irregular cycle Menorrhagia with irregular cycle [N92.1] Procedures NH HYSTEROSCOPY ENDOMETRIAL ABLATION Hysteroscopy with Ablation Tissue Maria D Ortega MD [address] [facility], [facility] [address] [place] [address] [address] Referral ID Status Reason Start Date Expiration Date Visits Re quested Visits Authorized [id number] 1 1 Reason Comments Weight Check Reason Comments Preparations For Surgery Reason Comments Gynecologic Exam Patient is here for a yearly exam. Patient has no concerns today. LMP: ABLATION 08/2023 Reason Comments Appointment Reason Onset Date Comments Refill Request 11/10/2023 Reason Onset Date Comments Refill Request 11/13/2023 Reason Comments Post Op Reason Comments Calf Pain Location: back of ca lf Pain scale: 3-4Description: calf feels tight and painfulTreatment: stretching Reason Comments Results Reason Comments Post Op Pain Swelling Reason Comments Refill Request Reason Comments ER F/U Cough and SOB Specialty Diagnoses / Procedures Referred By Sam t Referred To Contact CT IMAGING Diagnoses Closed fracture of right ankle with routine healing, subsequent encounter Procedures CT ANKLE WO IVCON RIGHT CT ANKLE WO IVCON RIGHT CT LOWER EXTREMITY W/O CONTRAST MATERIAL Amarjit Storey, ALLY [address] [address] [place] [address] Referral ID Status Reason Start Date Expiration Date V isits Requested Visits Authorized [id number] Closed Auto-Generate d Referral 03/28/2024 05/27/2024 1 1 Reason Comments Follow Up Pain Swelling Reason Comments Results - Ct Reason Comments New Patient Reason Onset Date Comments Refill Request 06/03/2024 Reason Comments Patient Update Reason Onset Date Comments Refill Request 06/29/2024 Reason Onset Date Comments Refill Request 07/22/2024 Reason Comments Consult GERD Dysphagia Reason Onset Date Comments Refill Request 08/22/2024 Reason Comments Post Op Established Patient Pain Swelling Reason Comments Established Patient Post Op Reason Comments Established Patient Follow Up Pain Post Op Reason Comments Post Op Follow Up Swelling Reason Comments Established Patient Follow Up Post Op Reason Comments Weight Loss She was on trulicity and gained weight so she wants to know other options Reason Comments Post Op Reason Comments Post-op Follow-up Patient is here for a one week post op of an Ablation. Patient has mild cramping and discharge. Patient denies any bleeding. Reason Comments Established Patient States no pain in ri ght ankle, pain has moved to foot Follow Up States no pain in ri ght ankle, pain has moved to foot Pain States no pain in ri ght ankle, pain has moved to foot Reason Comments Ear Pain Bilateral ear pain Flank Pain Both side/low back Reason Comments Headaches Reason Comments Established Patient Follow Up Reason Comments 3 weeks f/u migraines Care Teams (unrecognized sec tion and content) Customer Service Voice Relationship Specialty Start Date End Date Noelle Blanc, CLINICAL INFORMATICS SPEC.DIE DRAWING CHECKER [address] [place] [address] PCP - General Family Practice 05/17/21 Customer Service Voice Relationship Specialty Start Date End Date Noelle Blanc, CLINICAL INFORMATICS SPEC.DIE DRAWING CHECKER [address] [place] [address] PCP - General Family Practice 05/17/21 Customer Service Voice Relationship Specialty Start Date End Date Noelle Blanc, CLINICAL INFORMATICS SPEC.DIE DRAWING CHECKER [address] [place] [address] PCP - General Family Practice 05/17/21 Customer Service Voice Relationship Specialty Start Date End Date Noelle Blanc, CLINICAL INFORMATICS SPEC.DIE DRAWING CHECKER [address] [place] [address] PCP - General Family Practice 05/17/21 Customer Service Voice Relationship Specialty Start Date End Date Noelle Blanc, CLINICAL INFORMATICS SPEC.DIE DRAWING CHECKER [address] [place] [address] PCP - General Family Practice 05/17/21 Customer Service Voice Relationship Specialty Start Date End Date Noelle Blanc, CLINICAL INFORMATICS SPEC.DIE DRAWING CHECKER [address] [place] [address] PCP - General Family Practice 05/17/21 Customer Service Voice Relationship Specialty Start Date End Date Noelle Blanc, CLINICAL INFORMATICS SPEC.DIE DRAWING CHECKER [address] [place] [address] PCP - General Family Practice 05/17/21 Customer Service Voice Relationship Specialty Start Date End Date Noelle Blanc, CLINICAL INFORMATICS SPEC.DIE DRAWING CHECKER [address] [place] [address] PCP - General Family Practice 05/17/21 Customer Service Voice Relationship Specialty Start Date End Date Noelle Blanc, CLINICAL INFORMATICS SPEC.DIE DRAWING CHECKER [address] [place] [address] PCP - General Family Practice 05/17/21 Customer Service Voice Relationship Specialty Start Date End Date Noelle Blanc, CLINICAL INFORMATICS SPEC.DIE DRAWING CHECKER [address] [place] [address] PCP - General Family Medicine 05/17/21 Customer Service Voice Relationship Specialty Start Date End Date Noelle Blanc, CLINICAL INFORMATICS SPEC.DIE DRAWING CHECKER [address] [place] [address] PCP - General Family Medicine 05/17/21 Customer Service Voice Relationship Specialty Start Date End Date Noelle Balnc, CLINICAL INFORMATICS SPEC.DIE DRAWING CHECKER [address] [place] [address] PCP - General Family Medicine 05/17/21 Customer Service Voice Relationship Specialty Start Date End Date Noelle Blanc, CLINICAL INFORMATICS SPEC.DIE DRAWING CHECKER [address] [place] [address] PCP - General Family Medicine 05/17/21 Customer Service Voice Relationship Specialty Start Date End Date Noelle Blanc, CLINICAL INFORMATICS SPEC.DIE DRAWING CHECKER [address] [place] [address] PCP - General Family Medicine 05/17/21 Customer Service Voice Relationship Specialty Start Date End Date Noelle Blanc, CLINICAL INFORMATICS SPEC.DIE DRAWING CHECKER [address] [place] [address] PCP - General Family Medicine 05/17/21 Customer Service Voice Relationship Specialty Start Date End Date Noelle Blanc, CLINICAL INFORMATICS SPEC.DIE DRAWING CHECKER [address] [place] [address] PCP - General Family Medicine 05/17/21 Customer Service Voice Relationship Specialty Start Date End Date Noelle Blanc, CLINICAL INFORMATICS SPEC.DIE DRAWING CHECKER [address] [place] [address] PCP - General Family Medicine 05/17/21 Customer Service Voice Relationship Specialty Start Date End Date Noelle Blanc, CLINICAL INFORMATICS SPEC.DIE DRAWING CHECKER [address] [place] [address] PCP - General Family Medicine 05/17/21 Customer Service Voice Relationship Specialty Start Date End Date Noelle Blanc, CLINICAL INFORMATICS SPEC.DIE DRAWING CHECKER [address] [place] [address] PCP - General Family Medicine 05/17/21 Customer Service Voice Relationship Specialty Start Date End Date Noelle Blanc, CLINICAL INFORMATICS SPEC.DIE DRAWING CHECKER [address] [place] [address] PCP - General Family Medicine 05/17/21 Customer Service Voice Relationship Specialty Start Date End Date Noelle Blanc, CLINICAL INFORMATICS SPEC.DIE DRAWING CHECKER [address] [place] [address] PCP - General Family Medicine 05/17/21 Customer Service Voice Relationship Specialty Start Date End Date Noelle Blanc A, CLINICAL INFORMATICS SPEC.DIE DRAWING CHECKER [address] [place] [address] PCP - General Family Medicine 05/17/21 Customer Service Voice Relationship Specialty Start Date End Date Noelle Blanc A, CLINICAL INFORMATICS SPEC.DIE DRAWING CHECKER [address] [place] [address] PCP - General Family Medicine 05/17/21 Customer Service Voice Relationship Specialty Start Date End Date Noelle Blanc, CLINICAL INFORMATICS SPEC.DIE DRAWING CHECKER [address] [place] [address] PCP - General Family Medicine 05/17/21 Customer Service Voice Relationship Specialty Start Date End Date Noelle Blanc, CLINICAL INFORMATICS SPEC.DIE DRAWING CHECKER [address] [place] [address] PCP - General Family Medicine 05/17/21 Customer Service Voice Relationship Specialty Start Date End Date Noelle Blanc, CLINICAL INFORMATICS SPEC.DIE DRAWING CHECKER [address] [place] [address] PCP - General Family Medicine 05/17/21 Customer Service Voice Relationship Specialty Start Date End Date Noelle Blanc, CLINICAL INFORMATICS SPEC.DIE DRAWING CHECKER [address] [place] [address] PCP - General Family Medicine 05/17/21 Customer Service Voice Relationship Specialty Start Date End Date Noelle Blanc, CLINICAL INFORMATICS SPEC.DIE DRAWING CHECKER [address] [place] [address] PCP - General Family Medicine 05/17/21 Customer Service Voice Relationship Specialty Start Date End Date Noelle Blanc, CLINICAL INFORMATICS SPEC.DIE DRAWING CHECKER [address] [place] [address] PCP - General Family Medicine 05/17/21 Customer Service Voice Relationship Specialty Start Date End Date Noelle Blanc, CLINICAL INFORMATICS SPEC.DIE DRAWING CHECKER [address] [place] [address] PCP - General Family Medicine 05/17/21 Customer Service Voice Relationship Specialty Start Date End Date Noelle Blanc APRN.DIE DRAWING CHECKER [address] [place] [address] PCP - General Family Medicine 05/17/21 Customer Service Voice Relationship Specialty Start Date End Date Noelle Blanc APRN-DIE DRAWING CHECKER [address] [place] [address] PCP - General Family Medicine 07/04/23 Customer Service Voice Relationship Specialty Start Date End Date Noelle Blanc APRN.DIE DRAWING CHECKER [address] [place] [address] PCP - General Family Medicine 05/17/21 Customer Service Voice Relationship Specialty Start Date End Date Noelle Blanc APRN.DIE DRAWING CHECKER [address] [place] [address] PCP - General Family Medicine 05/17/21 Customer Service Voice Relationship Specialty Start Date End Date Noelle Blanc APRN-DIE DRAWING CHECKER [address] [place] [address] PCP - General Family Medicine 07/04/23 Customer Service Voice Relationship Specialty Start Date End Date Noelle Blanc APRN-DIE DRAWING CHECKER [address] [place] [address] PCP - General Family Medicine 07/04/23 Customer Service Voice Relationship Specialty Start Date End Date Noelle Blanc APRN-DIE DRAWING CHECKER [address] [place] [address] PCP - General Family Medicine 07/04/23 Customer Service Voice Relationship Specialty Start Date End Date Noelle Blanc APRN.DIE DRAWING CHECKER [address] [place] [address] PCP - General Family Medicine 05/17/21 Edis Cadet DO [address] [place] [address] Cardiology 08/23/23 Customer Service Voice Relationship Specialty Start Date End Date Noelle Blanc APRN.DIE DRAWING CHECKER [address] [facility] [address] PCP - General Family Medicine 05/17/21 Edis Cadet DO [address] [place] [address] Cardiology 08/23/23 Customer Service Voice Relationship Specialty Start Date End Date Noelle Blanc CLINICAL INFORMATICS SPEC.DIE DRAWING CHECKER [address] [place] [address] PCP - General Family Medicine 05/17/21 Edis Cadet DO [address] [place] [address] Cardiology 08/23/23 Customer Service Voice Relationship Specialty Start Date End Date Noelle Blanc APRN.DIE DRAWING CHECKER [address] [place] [address] PCP - General Family Medicine 05/17/21 Edis Cadet DO [address] [place] [address] Cardiology 08/23/23 Customer Service Voice Relationship Specialty Start Date End Date Noelle Blanc APRN-DIE DRAWING CHECKER [address] [facility] [place] [address] PCP - General Family Medicine 07/04/23 Customer Service Voice Relationship Specialty Start Date End Date Noelle Blanc, CLINICAL INFORMATICS SPEC.DIE DRAWING CHECKER [address] [place] [address] PCP - General Family Medicine 05/17/21 Edis Cadet DO [address] [place] [address] Cardiology 08/23/23 Customer Service Voice Relationship Specialty Start Date End Date Noelle Blanc, CLINICAL INFORMATICS SPEC.DIE DRAWING CHECKER [address] [place] [address] PCP - General Family Medicine 05/17/21 Edis Cadet DO [address] [place] [address] Cardiology 08/23/23 Customer Service Voice Relationship Specialty Start Date End Date Noelel Blanc, CLINICAL INFORMATICS SPEC.DIE DRAWING CHECKER [address] [place] [address] PCP - General Family Medicine 05/17/21 Edis Cadet DO [address] [place] [address] Cardiology 08/23/23 Customer Service Voice Relationship Specialty Start Date End Date Noelle Blanc, CLINICAL INFORMATICS SPEC.DIE DRAWING CHECKER [address] [place] [address] PCP - General Family Medicine 05/17/21 Edis Cadet DO [address] [place] [address] Cardiology 08/23/23 Customer Service Voice Relationship Specialty Start Date End Date Noelle Blanc, CLINICAL INFORMATICS SPEC.DIE DRAWING CHECKER [address] [place], [place] [address] PCP - General Family Medicine 05/17/21 Edis Cadet DO [address] [place] [address] Cardiology 08/23/23 Customer Service Voice Relationship Specialty Start Date End Date Noelle Blanc, CLINICAL INFORMATICS SPEC.DIE DRAWING CHECKER [address] [place] [address] PCP - General Family Medicine 05/17/21 Edis Cadet DO [address] [place] [address] Cardiology 08/23/23 Customer Service Voice Relationship Specialty Start Date End Date Noelle Blanc, CLINICAL INFORMATICS SPEC.DIE DRAWING CHECKER [address] [place] [address] PCP - General Family Medicine 05/17/21 Edis Cadet DO [address] [place] [address] Cardiology 08/23/23 Customer Service Voice Relationship Specialty Start Date End Date Noelle Blanc, CLINICAL INFORMATICS SPEC.DIE DRAWING CHECKER [address] [place] [address] PCP - General Family Medicine 05/17/21 Edis Cadet DO [address] [place] [address] Cardiology 08/23/23 Customer Service Voice Relationship Specialty Start Date End Date Noelle Blanc, CLINICAL INFORMATICS SPEC.DIE DRAWING CHECKER [address] [place] [address] PCP - General Family Medicine 05/17/21 Edis Cadet DO [address] [place] [address] Cardiology 08/23/23 Customer Service Voice Relationship Specialty Start Date End Date Noelle Blanc, CLINICAL INFORMATICS SPEC.DIE DRAWING CHECKER [address] [place] [address] PCP - General Family Medicine 05/17/21 Edis Cadet DO [address] [place] [address] Cardiology 08/23/23 Customer Service Voice Relationship Specialty Start Date End Date Noelle Blanc, CLINICAL INFORMATICS SPEC.DIE DRAWING CHECKER [address] [place] [address] PCP - General Family Medicine 05/17/21 Edis Cadet DO [address] [place] [address] Cardiology 08/23/23 Ambreen Daniel, supervisor in charge Salon Manager 02/20/24 02/21/24 Customer Service Voice Relationship Specialty Start Date End Date Noelle Blanc, CLINICAL INFORMATICS SPEC.DIE DRAWING CHECKER [address] [place] [address] PCP - General Family Medicine 05/17/21 Edis Cadet DO [address] [place] [address] Cardiology 08/23/23 Ambreen Daniel, supervisor in charge Salon Manager 02/20/24 02/21/24 Customer Service Voice Relationship Specialty Start Date End Date Noelle Blanc, CLINICAL INFORMATICS SPEC.DIE DRAWING CHECKER [address] [place] [address] PCP - General Family Medicine 05/17/21 Edis Cadet DO [address] [place] [address] Cardiology 08/23/23 Customer Service Voice Relationship Specialty Start Date End Date Noelle Blanc, CLINICAL INFORMATICS SPEC.DIE DRAWING CHECKER [address] [place] [address] PCP - General Family Medicine 05/17/21 Edis Cadet DO [address] [place] [address] Cardiology 08/23/23 Customer Service Voice Relationship Specialty Start Date End Date Noelle Blanc, CLINICAL INFORMATICS SPEC.DIE DRAWING CHECKER [address] [place] [address] PCP - General Family Medicine 05/17/21 Edis Cadet DO [address] [place] [address] Cardiology 08/23/23 Customer Service Voice Relationship Specialty Start Date End Date Noelle Blanc, CLINICAL INFORMATICS SPEC.DIE DRAWING CHECKER [address] [place] [address] PCP - General Family Medicine 05/17/21 Edis Cadet DO [address] [place] [address] Cardiology 08/23/23 Customer Service Voice Relationship Specialty Start Date End Date Noelle Blanc, CLINICAL INFORMATICS SPEC.DIE DRAWING CHECKER [address] [facility] [place] [address] PCP - General Family Medicine 05/17/21 Edis Cadet DO [address] [place] [address] Cardiology 08/23/23 Customer Service Voice Relationship Specialty Start Date End Date Noelle Blanc, CLINICAL INFORMATICS SPEC.DIE DRAWING CHECKER [address] [facility] [place] [address] PCP - General Family Medicine 05/17/21 Edis Cadet DO [address] [place] [address] Cardiology 08/23/23 Customer Service Voice Relationship Specialty Start Date End Date Noelle Blanc, CLINICAL INFORMATICS SPEC.DIE DRAWING CHECKER [address] [place] [address] PCP - General Family Medicine 05/17/21 Edis Cadet DO [address] [place] [address] Cardiology 08/23/23 Customer Service Voice Relationship Specialty Start Date End Date Noelle Blanc, CLINICAL INFORMATICS SPEC.DIE DRAWING CHECKER [address] [place] [address] PCP - General Family Medicine 05/17/21 Edis Cadet DO [address] [place] [address] Cardiology 08/23/23 Customer Service Voice Relationship Specialty Start Date End Date Noelle Blanc, CLINICAL INFORMATICS SPEC.DIE DRAWING CHECKER [address] [place] [address] PCP - General Family Medicine 05/17/21 Edis Cadet DO [address] [place] [address] Cardiology 08/23/23 Customer Service Voice Relationship Specialty Start Date End Date Noelle Blanc, CLINICAL INFORMATICS SPEC.DIE DRAWING CHECKER [address] [place] [address] PCP - General Family Medicine 05/17/21 Edis Cadet DO [address] [place] [address] Cardiology 08/23/23 Customer Service Voice Relationship Specialty Start Date End Date Noelle Blanc, CLINICAL INFORMATICS SPEC.DIE DRAWING CHECKER [address] [place] [address] PCP - General Family Medicine 05/17/21 Edis Cadet DO [address] [place] [address] Cardiology 08/23/23 Customer Service Voice Relationship Specialty Start Date End Date Noelle Blanc CLINICAL INFORMATICS SPEC.DIE DRAWING CHECKER [address] [place] [address] PCP - General Family Medicine 05/17/21 Edis Cadet DO [address] [place] [address] Cardiology 08/23/23 Customer Service Voice Relationship Specialty Start Date End Date Noelle Blanc CLINICAL INFORMATICS SPEC.DIE DRAWING CHECKER [address] [place] [address] PCP - General Family Medicine 05/17/21 Edis Cadet DO [address] [place] [address] Cardiology 08/23/23 Customer Service Voice Relationship Specialty Start Date End Date Noelle Blanc, CLINICAL INFORMATICS SPEC.DIE DRAWING CHECKER [address] [place] [address] PCP - General Family Medicine 05/17/21 Edis Cadet DO [address] [place] [address] Cardiology 08/23/23 Customer Service Voice Relationship Specialty Start Date End Date Noelle Blanc, CLINICAL INFORMATICS SPEC.DIE DRAWING CHECKER [address] [place] [address] PCP - General Family Medicine 05/17/21 Edis Cadet DO [address] [place] [address] Cardiology 08/23/23 Customer Service Voice Relationship Specialty Start Date End Date Noelle Blanc CLINICAL INFORMATICS SPEC.DIE DRAWING CHECKER [address] [place] [address] PCP - General Family Medicine 05/17/21 Edis Cadet DO [address] [place] [address] Cardiology 08/23/23 Customer Service Voice Relationship Specialty Start Date End Date Noelle Blanc, CLINICAL INFORMATICS SPEC.DIE DRAWING CHECKER [address] [place] [address] PCP - General Family Medicine 05/17/21 Edis Cadet DO [address] [place] [address] Cardiology 08/23/23 Customer Service Voice Relationship Specialty Start Date End Date Noelle Blanc, CLINICAL INFORMATICS SPEC.DIE DRAWING CHECKER [address] [place] [address] PCP - General Family Medicine 05/17/21 Edis Cadet DO [address] [place] [address] Cardiology 08/23/23 Customer Service Voice Relationship Specialty Start Date End Date Noelle Blanc, CLINICAL INFORMATICS SPEC.DIE DRAWING CHECKER [address] [place] [address] PCP - General Family Medicine 05/17/21 Edis Cadet DO [address] [place] [address] Cardiology 08/23/23 Customer Service Voice Relationship Specialty Start Date End Date Noelle Blanc, CLINICAL INFORMATICS SPEC.DIE DRAWING CHECKER [address] [place] [address] PCP - General Family Medicine 05/17/21 Edis Cadet DO [address] [place] [address] Cardiology 08/23/23 Customer Service Voice Relationship Specialty Start Date End Date Noelle Blanc, CLINICAL INFORMATICS SPEC.DIE DRAWING CHECKER [address] [place] [address] PCP - General Family Medicine 05/17/21 Edis Cadet DO [address] [place] [address] Cardiology 08/23/23 Customer Service Voice Relationship Specialty Start Date End Date Noelle Blanc CLINICAL INFORMATICS SPEC.DIE DRAWING CHECKER [address] [place] [address] PCP - General Family Medicine 05/17/21 Edis Cadet DO [address] [place] [address] Cardiology 08/23/23 Customer Service Voice Relationship Specialty Start Date End Date Noelle Blanc, CLINICAL INFORMATICS SPEC.DIE DRAWING CHECKER [address] [place] [address] PCP - General Family Medicine 05/17/21 Edis Cadet DO [address] [place] [address] Cardiology 08/23/23 Customer Service Voice Relationship Specialty Start Date End Date Noelle Blanc, CLINICAL INFORMATICS SPEC.DIE DRAWING CHECKER [address] [place] [address] PCP - General Family Medicine 05/17/21 Edis Cadet DO [address] [place] [address] Cardiology 08/23/23 Customer Service Voice Relationship Specialty Start Date End Date Noelle Blanc, CLINICAL INFORMATICS SPEC.DIE DRAWING CHECKER [address] [place] [address] PCP - General Family Medicine 05/17/21 Edis Cadet DO [address] [place] [address] Cardiology 08/23/23 Customer Service Voice Relationship Specialty Start Date End Date Noelle Blanc, CLINICAL INFORMATICS SPEC.DIE DRAWING CHECKER [address] [place] [address] PCP - General Family Medicine 05/17/21 Jeannette Navarro, ELIZABETH Primary Care Salon Manager 08/20/24 08/22/24 Customer Service Voice Relationship Specialty Start Date End Date Noelle Blanc, CLINICAL INFORMATICS SPEC.DIE DRAWING CHECKER [address] [place] [address] PCP - General Family Medicine 05/17/21 Jeannette Navarro RN Primary Care Salon Manager 08/20/24 08/22/24 Customer Service Voice Relationship Specialty Start Date End Date Noelle Blanc, CLINICAL INFORMATICS SPEC.DIE DRAWING CHECKER [address] [place] [address] PCP - General Family Medicine 05/17/21 Customer Service Voice Relationship Specialty Start Date End Date Noelle Blanc, CLINICAL INFORMATICS SPEC.DIE DRAWING CHECKER [address] [place] [address] PCP - General Family Medicine 05/17/21 Customer Service Voice Relationship Specialty Start Date End Date Noelle Blanc, CLINICAL INFORMATICS SPEC.DIE DRAWING CHECKER [address] [place] [address] PCP - General Family Medicine 05/17/21 Customer Service Voice Relationship Specialty Start Date End Date Noelle Blanc, CLINICAL INFORMATICS SPEC.DIE DRAWING CHECKER [address] [place] [address] PCP - General Family Medicine 05/17/21 Customer Service Voice Relationship Specialty Start Date End Date Noelle Blanc, CLINICAL INFORMATICS SPEC.DIE DRAWING CHECKER [address] [place] [address] PCP - General Family Medicine 05/17/21 Customer Service Voice Relationship Specialty Start Date End Date Noelle Blanc, CLINICAL INFORMATICS SPEC.DIE DRAWING CHECKER [address] [place] [address] PCP - General Family Medicine 05/17/21 Customer Service Voice Relationship Specialty Start Date End Date Noelle Blanc, CLINICAL INFORMATICS SPEC.DIE DRAWING CHECKER [address] [place] [address] PCP - General Family Medicine 05/17/21 Customer Service Voice Relationship Specialty Start Date End Date Noelle Blanc, CLINICAL INFORMATICS SPEC.DIE DRAWING CHECKER [address] [place] [address] PCP - General Family Medicine 05/17/21 Customer Service Voice Relationship Specialty Start Date End Date Noelle Blanc, CLINICAL INFORMATICS SPEC.DIE DRAWING CHECKER [address] [place] [address] PCP - General Family Medicine 05/17/21 Customer Service Voice Relationship Specialty Start Date End Date Noelle Blanc, CLINICAL INFORMATICS SPEC.DIE DRAWING CHECKER [address] [place] [address] PCP - General Family Medicine 05/17/21 Customer Service Voice Relationship Specialty Start Date End Date Noelle Blanc, CLINICAL INFORMATICS SPEC.DIE DRAWING CHECKER [address] [place] [address] PCP - General Family Medicine 05/17/21 Customer Service Voice Relationship Specialty Start Date End Date Noelle Blanc, CLINICAL INFORMATICS SPEC.DIE DRAWING CHECKER [address] [place] [address] PCP - General Family Medicine 05/17/21 Customer Service Voice Relationship Specialty Start Date End Date Noelle Blanc, CLINICAL INFORMATICS SPEC-DIE DRAWING CHECKER [address] [place] [address] PCP - General Family Medicine 07/04/23 Customer Service Voice Relationship Specialty Start Date End Date Noelle Blanc, CLINICAL INFORMATICS SPEC.DIE DRAWING CHECKER [address] [place] [address] PCP - General Family Medicine 05/17/21 Customer Service Voice Relationship Specialty Start Date End Date Noelle Blanc, CLINICAL INFORMATICS SPEC.DIE DRAWING CHECKER [address] [place] [address] PCP - General Family Medicine 05/17/21 Customer Service Voice Relationship Specialty Start Date End Date Noelle Blanc, CLINICAL INFORMATICS SPEC.DIE DRAWING CHECKER [address] [place] [address] PCP - General Family Medicine 05/17/21 Customer Service Voice Relationship Specialty Start Date End Date Noelle Blanc, CLINICAL INFORMATICS SPEC.DIE DRAWING CHECKER [address] [place] [address] PCP - General Family Medicine 05/17/21 Customer Service Voice Relationship Specialty Start Date End Date Noelle Blanc, CLINICAL INFORMATICS SPEC.DIE DRAWING CHECKER [address] [place] [address] PCP - General Family Medicine 05/17/21 Customer Service Voice Relationship Specialty Start Date End Date Noelle Blanc, CLINICAL INFORMATICS SPEC.DIE DRAWING CHECKER [address] [place] [address] PCP - General Family Medicine 05/17/21 Customer Service Voice Relationship Specialty Start Date End Date Noelle Blanc APRN.CNP [address] [place] [address] PCP - General Family Medicine 05/17/21 Goals (unrecognized section and content) Goals may be documented in a n alternate section Scheduled Active and Recently Administ ered Medications (unrecognized section and content) Medication Order 08/29/2023 08/30/2023 08/31/2023 acetaminophen (Tylenol) tablet 975 mg (COMPLETED) 975 mg, oral, Once, On Olinda 08/31/23 at 1130, For 1 dose, Preprocedure, Administer with small amount of water preoperatively., If ordered PRN for pain, nurse is permitted to administer this medication for higher pain scores based on patient preference? Yes 1155 (Given - Provid er: Tawny Mcneill RN) celecoxib (CeleBREX) capsule 200 mg (COMPLETED) 200 mg, oral, Once, On Olinda 08/31/23 at 1130, For 1 dose, Preprocedure, Administer with small amount of water preoperatively. Capsules may be opened and sprinkled on a spoonful of cold or room temperature applesauce. 1155 (Given - Provid er: Tawny Mcneill RN) gabapentin (Neurontin) capsule 300 mg (COMPLETED) 300 mg, oral, Once, On Olinda 08/31/23 at 1130, For 1 dose, Preprocedure, Administer with small amount of water preoperatively. Per orthopedic protocol. Capsules may be opened and sprinkled on food (eg, applesauce, orange juice, pudding 1155 (Given - Provid er: Tawny Mcneill RN) lidocaine PF (Xylocaine) 10 mg/mL (1 %) injection 1 mg 1 mg (0.1 mL), subcutaneous, Once, On Olinda 08/31/23 at 1345, For 1 dose, Recovery (only), To be used for IV insertion ONLY 1345 (Due) Continuous Medication Order 08/29/2023 08/30/2023 08/31/2023 lactated Ringer's infusion 50 mL/hr, intravenous, Continuous, Starting on Olinda 08/31/23 at 1130, Preprocedure 1214 (New Bag - Prov ider: Soraya Tom RN) lactated Ringer's infusion 100 mL/hr, intravenous, Continuous, Starting on Olinda 08/31/23 at 1345, Recovery (only) 1345 (Due) PRN Medication Order 08/29/2023 08/30/2023 08/31/2023 HYDROmorphone (Dilaudid) injection 0.2 mg 0.2 mg, intravenous, Every 5 min PRN, pain moderate (4-6), first line, Starting on Olinda 08/31/23 at 1330, Recovery (only), Max total of 4 mg regardless of dose. 1334 (Given - Provid er: Soraya Tom RN)1345 (Given - Provider: Soraya Tom RN) ondansetron (Zofran) injection 4 mg 4 mg, intravenous, Once as needed, nausea/vomiting, first line, Starting on Olinda 08/31/23 at 1330, For 1 dose, Recovery (only), When administering via IV Push, administer over 3-5 minutes. oxyCODONE (Roxicodone) immediate release tablet 5 mg 5 mg, oral, Every 4 hours PRN, pain moderate (4-6), second line, Starting on Olinda 08/31/23 at 1330, Recovery (only), When able to take oral medications., If ordered PRN for pain, nurse is permitted to administer this medication for higher pain scores based on patient preference? Yes 1415 (Given - Provid er: Soraya Tom RN) oxygen (O2) therapy inhalation, Continuous PRN - O2/gases, other, Starting on Olinda 08/31/23 at 1330, Recovery (only), Device: Nasal Cannula, Rate in liters per minute: Other, Custom Value: 1-6 LPM, Keep O2 Sat Above: 92% FOR RECORDS PERTAINING TO PATIENTS WHO ARE OR HAVE BEEN ENROLLED IN A CHEMICAL DEPENDENCY/SUBSTANCEABUSE PROGRAM, SOME INFORMATION MAY BE OMITTED. This clinical summary was aggregated from multiple sources. Caution should be exercised in using it in the provision of clinical care. This summary normalizes information from multiple sources, and as a consequence, information in this document may materially change the coding, format and clinical context of patient data. In addition, data may be omitted in some cases. CLINICAL DECISIONS SHOULD BE BASED ON THE PRIMARY CLINICAL RECORDS. [facility] [employer] [facility]. provides no warranty or guarantee of the accuracy or completeness of information in this document.
[2025-05-04] MEDS: 0.9% Normal Saline (1000mL) 1,000 ML 999 ML IV (19:08)
[2025-05-04 19:15] LABS: Hematocrit 39.8 % (37-47); Hemoglobin 13.8 g/dL (12.0-15.0); Immature Granulocytes Count 0.010 X10^3/uL (0.0-0.0); Mean Corp Hgb Conc 34.7 g/dL (32-36); Mean Corpuscular Volume 87.5 fL (81-99); Mean Platelet Vol. 10.6 fl (6.2-12.0); NRBC Flagged by Analyzer 0 % (0-5); Platelet Count 209 K/mm3 (150-450); RBC Distribution Width CV 12.7 % (11.6-14.6); RBC Distribution Width SD 40.3 fl (35.1-43.9); Red Blood Count 4.55 M/mm3 (4.2-5.4); White Blood Count 6.6 K/mm3 (4.4-11.0)
[2025-05-04 19:25] LABS: Internal QC Validated? YES +Cl - CLEAR BKGD; Pregnancy, Serum, hCG Quali. NEGATIVE Negative; Record Kit Lot#, Serum Preg. 964736
[2025-05-04 19:33] LABS: AST(SGOT) 31 U/L (<=31); Alanine Aminotransfer ALT/SGPT 38 U/L (<=34); Albumin, Serum 4.0 g/dL (3.5-5.0); Alkaline Phosphatase 67 U/L (35-104); Anion Gap 10 (5-15); BUN 11 mg/dL (4-19); BUN/Creat Ratio 11.2 RATIO (10-20); Calcium,Total 9.0 mg/dL (7.6-11.0); Carbon Dioxide 25.6 mmol/L (21.0-32.0); Chloride 106 mmol/L (98-108); Estimated Creatinine Clearance 107.93 ml/min (50-250); Globulin 2.7 g/dL (2.2-4.2); Glucose 88 mg/dL (70-99); Lipase 26 U/L (13-75); Potassium 3.7 mmol/L (3.3-5.1)
[2025-05-04 19:36] LABS: Mucous, Urine 0 SEEN /hpf (<or=2+)
[2025-05-04 19:52] LABS: Color, Urine Yellow (Yellow); Glucose, Dipstick Normal (Normal); Ketone-Dipstick Negative (Negative); Leukocyte Esterase-Dipstick 25 /ul (Negative); Nitrite-Dipstick Negative (Negative); Occult Blood-Urine Negative /ul (Negative); Protein-Dipstick 15 mg/dl (Negative); Specific Gravity, Urine 1.010 (1.002-1.030); Urine Bilirubin Dipstick Negative (Negative)
[2025-05-04 20:18] VITALS: BP 128/87; PULSE 77; RESP 16; O2SAT 98
[2025-05-04 20:41] VITALS: BP 127/86; PULSE 58; RESP 16; TEMP 36.7; O2SAT 100
[2025-05-04 21:19] LABS: Red Blood Cells-Urine 0-5 SEEN /hpf (0-5); Squamous Epithelial Cells - UA 0-5 SEEN /hpf (5-10); Yeast-Urine 2+ /hpf (None Seen)
== END 2025-05-04 20:46 | disposition home or self-care (01) ==
PROVIDERS: Emergency Provider Emergency Medicine; PCP Nurse Practitioner Family; Visit Provider Emergency Medicine
DX: B34.9 Viral infection, unspecified (principal); R10.31 Right lower quadrant pain
CPT/HCPCS: 74177; 80053; 81001; 83690; 84703; 85025; 99283; Q9967; A4216